=== PATIENT | female | born 1975 | race Caucasian/White ===

== ENCOUNTER → 2017-05-07 | Outpatient (REF) | payer OTHER ==
[~2017-05-07] MED LIST: ALBU17IN INH; ALBU17IN2; CLAR10CA3 PO; INSULADS SC; LISI10TA4 PO; NOVALOG INSULIN SC
[2017-05-07 13:18] LABS: BASO # 0.1 K/mm3 (0.0-0.2); BASO % 0.8 % (0.0-1.0); EOS # 0.2 K/mm3 (0.0-0.50); LARGE UNSTAINED CELL # 0.2 K/mm3 (0.0-0.4); LARGE UNSTAINED CELL % 2.2 % (0.0-4.0); LYMPH # 3.3 K/mm3 (1.5-4.5); LYMPH % 31.9 % (24.0-44.0); MEAN CORPUSCULAR HEMOGLOBIN 30.8 pg (27.0-33.0); MEAN CORPUSCULAR HGB CONC 34.6 g/dl (32.0-36.5); MEAN CORPUSCULAR VOLUME 89.1 fl (80.0-96.0); MONO # 0.8 K/mm3 (0.0-0.8); MONO % 7.3 % (0.0-5.0); NEUTROPHILS # 5.7 K/mm3 (1.8-7.7); NEUTROPHILS % 55.8 % (36.0-66.0); PLATELET COUNT, AUTOMATED 340 k/mm3 (150-450); RED CELL DISTRIBUTION WIDTH 12.5 % (11.5-14.5); WHITE BLOOD COUNT 10.3 K/mm3 (4.0-10.0)
[2017-05-07 13:49] LABS: ALBUMIN 2.9 GM/DL (3.2-5.2); ALBUMIN/GLOBULIN RATIO 0.83 (1.00-1.93); ALKALINE PHOSPHATASE 123 U/L (45-117); ALT/SGPT 23 U/L (12-78); ANION GAP 14 MEQ/L (8-16); AST/SGOT 9 U/L (15-37); BILIRUBIN,TOTAL 0.2 MG/DL (0.2-1.0); BLOOD UREA NITROGEN 20 MG/DL (7-18); CALCIUM LEVEL 8.8 MG/DL (8.5-10.1); CARBON DIOXIDE LEVEL 23 MEQ/L (21-32); CHLORIDE LEVEL 98 MEQ/L (98-107); CHOLESTEROL LEVEL 271 MG/DL (<200); CREATININE FOR GFR 0.59 MG/DL (0.55-1.02); GLOMERULAR FILTRATION RATE > 60.0 (>58); POTASSIUM SERUM 4.6 MEQ/L (3.5-5.1); SODIUM LEVEL 135 MEQ/L (136-145); THYROXINE (T4) 9.9 UG/DL (4.5-12.0); TOTAL PROTEIN 6.4 GM/DL (6.4-8.2); TRIGLYCERIDES LEVEL 1684 MG/DL (<150)
[2017-05-07 14:10] LABS: GLUCOSE, FASTING 413 MG/DL (70-105)
== END ==
LOC: M LABDRAW1 08:44
PROVIDERS: ATTEND Nurse Practitioner Adult Health
DX: E66.01 Morbid (severe) obesity due to excess calories (principal); E11.9 Type 2 diabetes mellitus without complications; Z79.899 Other long term (current) drug therapy; E55.9 Vitamin D deficiency, unspecified; E78.1 Pure hyperglyceridemia

== ENCOUNTER → 2017-05-08 | Outpatient (CLI) | payer OTHER ==
[2017-05-08 10:00] LABS: ANION GAP 7 MEQ/L (8-16); BLOOD UREA NITROGEN 18 MG/DL (7-18); CALCIUM LEVEL 9.1 MG/DL (8.5-10.1); CARBON DIOXIDE LEVEL 27 MEQ/L (21-32); CHLORIDE LEVEL 106 MEQ/L (98-107); CREATININE FOR GFR 0.52 MG/DL (0.55-1.02); GLOMERULAR FILTRATION RATE > 60.0 (>58); GLUCOSE, FASTING 157 MG/DL (70-105); POTASSIUM SERUM 4.1 MEQ/L (3.5-5.1); SODIUM LEVEL 140 MEQ/L (136-145)
== END ==
LOC: M LAB 09:14
PROVIDERS: ATTEND Nurse Practitioner Adult Health
DX: E11.9 Type 2 diabetes mellitus without complications (principal)

== ENCOUNTER → 2017-10-20 | Outpatient (CLI) | payer OTHER | LOC: M RAD 14:14 | DX: N64.4 Mastodynia (principal); N63.10 Unspecified lump in the right breast, unspecified quadrant | CPT/HCPCS: 77065 ==

== ENCOUNTER → 2017-11-10 | Outpatient (REF) | payer OTHER ==
[2017-11-10 12:00] LABS: HEMATOCRIT 48.6 % (36.0-47.0); HEMOGLOBIN 16.2 g/dl (12.0-16.0); MEAN CORPUSCULAR HEMOGLOBIN 29.1 pg (27.0-33.0); MEAN CORPUSCULAR HGB CONC 33.3 g/dl (32.0-36.5); MEAN CORPUSCULAR VOLUME 87.3 fl (80.0-96.0); PLATELET COUNT, AUTOMATED 374 10^3/uL (150-450); RED BLOOD COUNT 5.57 10^6/uL (4.00-5.40); WHITE BLOOD COUNT 13.1 10^3/uL (4.0-10.0)
[2017-11-10 12:01] LABS: ADD MANUAL DIFFER YES; DIFF SLIDE NUMBER 216; POSITIVE DIFF POS FLAG
[2017-11-10 12:18] LABS: ESTIMATED AVERAGE GLUCOSE 324 MG/DL (60-110); HEMOGLOBIN A1c 12.9 %
[2017-11-10 12:23] LABS: ALBUMIN/GLOBULIN RATIO 0.88 (1.00-1.93); ALKALINE PHOSPHATASE 124 U/L (45-117); ALT/SGPT 23 U/L (12-78); ANION GAP 11 MEQ/L (8-16); AST/SGOT 12 U/L (7-37); BILIRUBIN,TOTAL 0.3 MG/DL (0.2-1.0); BLOOD UREA NITROGEN 18 MG/DL (7-18); CALCIUM LEVEL 9.1 MG/DL (8.5-10.1); CARBON DIOXIDE LEVEL 26 MEQ/L (21-32); CHLORIDE LEVEL 100 MEQ/L (98-107); CHOLESTEROL LEVEL 270 MG/DL (<200); CHOLESTEROL RISK RATIO 8.181 (<5); CREATININE FOR GFR 0.58 MG/DL (0.55-1.30); FREE T4 1.09 NG/DL (0.76-1.46); GLOMERULAR FILTRATION RATE > 60.0 (>58); GLUCOSE, FASTING 302 MG/DL (70-100); HDL CHOLESTEROL 33 MG/DL (>40); NON-HDL-C 237 MG/DL; POTASSIUM SERUM 4.1 MEQ/L (3.5-5.1); SODIUM LEVEL 137 MEQ/L (136-145); TOTAL PROTEIN 6.4 GM/DL (6.4-8.2); TRIGLYCERIDES LEVEL 588 MG/DL (<150)
[2017-11-10 12:43] LABS: TOTAL 25(OH) VITAMIN D 15.2 NG/ML (30.0-100.0)
[2017-11-10 13:17] LABS: BASOPHILS 1 % (0-4); EOSINOPHILS 3 % (0-5); LYMPHOCYTES 40 % (16-52); MONOCYTES 5 % (0-8); MYELOCYTES 1 % (0-0); NEUTROPHILS 50 % (35-75)
[2017-11-10 13:18] LABS: ANISOCYTOSIS 1+; PLATELET ESTIMATE NORMAL (NORMAL)
== END ==
LOC: M LABDRAW1 11:15
DX: E11.9 Type 2 diabetes mellitus without complications (principal); Z79.899 Other long term (current) drug therapy; E55.9 Vitamin D deficiency, unspecified; E78.1 Pure hyperglyceridemia

== ENCOUNTER 2017-11-15 11:58 | Emergency (ER) | payer OTHER ==
[2017-11-15] MEDS: NORCO, ANEXSIA 5/325MG TABLET (HYDROcodone/ACETAMINOPHEN) PO (12:33)
== END 2017-11-15 13:38 | disposition home or self-care (01) ==
LOC: M ED 11:58
DX: S40.022A Contusion of left upper arm, initial encounter (principal); W19.XXXA Unspecified fall, initial encounter; Y92.410 Unspecified street and highway as the place of occurrence of the external cause; I10 Essential (primary) hypertension; E11.9 Type 2 diabetes mellitus without complications; Z87.891 Personal history of nicotine dependence; Z88.5 Allergy status to narcotic agent; Z79.899 Other long term (current) drug therapy; Z79.4 Long term (current) use of insulin
CPT/HCPCS: 73060

== ENCOUNTER → 2018-01-21 | Outpatient (CLI) | payer OTHER | LOC: M RAD 08:13 | DX: M47.22 Other spondylosis with radiculopathy, cervical region (principal) | CPT/HCPCS: 72052 ==

== ENCOUNTER → 2018-04-03 | Outpatient (CLI) | payer OTHER | LOC: M WUC 13:20 | DX: J01.90 Acute sinusitis, unspecified (principal) | CPT/HCPCS: 70220 ==

== ENCOUNTER 2018-06-18 14:42 | Inpatient (IN) | payer OTHER ==
[2018-06-18 15:43] LABS: BASO # 0.1 10^3/uL (0.0-0.2); BASO % 0.7 % (0.0-1.0); EOS # 0.3 10^3/uL (0.0-0.50); EOS % 2.2 % (0.0-3.0); HEMATOCRIT 40.5 % (36.0-47.0); HEMOGLOBIN 13.8 g/dl (12.0-15.5); IMMATURE GRANULOCYTE % 0.2 % (0-3.0); LYMPH # 3.8 10^3/uL (1.5-4.5); LYMPH % 30.1 % (24.0-44.0); MEAN CORPUSCULAR HEMOGLOBIN 29.4 pg (27.0-33.0); MEAN CORPUSCULAR HGB CONC 34.1 g/dl (32.0-36.5); MEAN CORPUSCULAR VOLUME 86.2 fl (80.0-96.0); MONO # 1.2 10^3/uL (0.0-0.8); MONO % 9.3 % (0.0-5.0); NEUTROPHILS # 7.2 10^3/uL (1.8-7.7); NEUTROPHILS % 57.5 % (36.0-66.0); PLATELET COUNT, AUTOMATED 375 10^3/uL (150-450); RED CELL DISTRIBUTION WIDTH 12.2 % (11.5-14.5); WHITE BLOOD COUNT 12.6 10^3/uL (4.0-10.0)
[2018-06-18 15:47] LABS: BEDSIDE GLUCOSE 135 MG/DL (70-105)
[2018-06-18 15:53] LABS: CONTROL LINE HCG INT CTR LINE PRESENT; HCG, SERUM QUALITATIVE NEGATIVE (NEGATIVE)
[2018-06-18 16:00] LABS: ALBUMIN 3.5 GM/DL (3.2-5.2); ALBUMIN/GLOBULIN RATIO 1.17 (1.00-1.93); ALKALINE PHOSPHATASE 63 U/L (45-117); ALT/SGPT 26 U/L (12-78); ANION GAP 8 MEQ/L (8-16); AST/SGOT 14 U/L (7-37); BILIRUBIN,DIRECT 0.1 MG/DL (0.0-0.2); BILIRUBIN,TOTAL 0.4 MG/DL (0.2-1.0); BLOOD UREA NITROGEN 18 MG/DL (7-18); C REACTIVE PROTEIN QUANTITATIV < 0.30 MG/DL (0.00-0.30); CALCIUM LEVEL 9.5 MG/DL (8.5-10.1); CARBON DIOXIDE LEVEL 25 MEQ/L (21-32); CHLORIDE LEVEL 108 MEQ/L (98-107); CK-MB VALUE MASS < 1.0 NG/ML (<3.6); CPK CREATINE PHOSPHOKINASE 28 U/L (26-192); GLOMERULAR FILTRATION RATE > 60.0 (>58); GLUCOSE, FASTING 147 MG/DL (70-100); MB/CK RELATIVE INDEX 3.57 (< OR =4); POTASSIUM SERUM 4.6 MEQ/L (3.5-5.1); SODIUM LEVEL 141 MEQ/L (136-145); TOTAL PROTEIN 6.5 GM/DL (6.4-8.2); TROPONIN I < 0.02 NG/ML (< 0.10)
[2018-06-18] MEDS: TOPIRAMATE (TopAMAX) 25 MG TAB PO (16:15)
[2018-06-18 16:19] LABS: INR 0.98
[2018-06-18 16:20] LABS: PARTIAL THROMBOPLASTIN TIME 29.7 SECONDS (25.4-37.6)
[2018-06-18 17:12] LABS: ERYTHROCYTE SEDIMENTATION RATE > 140 mm/hr (0-20)
[2018-06-18] MEDS: ATORVASTATIN 20 MG TAB PO (21:56)
[2018-06-19] MEDS ORDERED: GLUCAGON FOR INJ 1 MG VIAL (J1610) SC (00:45)
[2018-06-19] MEDS ORDERED: DEXTROSE 50% 50 ML SYRINGE IV (00:45)
[2018-06-19] MEDS ORDERED: GLUCOSE 4 GM CHEW TABLET PO (00:45)
[2018-06-19 01:08] LABS: BEDSIDE GLUCOSE 125 MG/DL (70-105)
[2018-06-19] MEDS ORDERED: ALBUTEROL 90 MCG/ACT 8GM HFA INHALER INH (01:15)
[2018-06-19 01:27] LABS: ESTIMATED AVERAGE GLUCOSE 174 MG/DL (60-110); HEMOGLOBIN A1c 7.7 %
[2018-06-19 01:33] LABS: CHOLESTEROL LEVEL 94 MG/DL (<200); CHOLESTEROL RISK RATIO 2.764 (<5); HDL CHOLESTEROL 34 MG/DL (>40); LDL CHOLESTEROL 33 MG/DL (<100); NON-HDL-C 60 MG/DL; TRIGLYCERIDES LEVEL 136 MG/DL (<150)
[2018-06-19] MEDS: HumaLOG INSULIN (NovoLOG) PER UNIT SC ×5 (02:11→20:25)
[2018-06-19] MEDS: methylPREDNISolone INJ 40 MG/1 ML VIAL (J2920) IV (02:20)
[2018-06-19 06:52] LABS: BEDSIDE GLUCOSE 188 MG/DL (70-105)
[2018-06-19] MEDS: ASPIRIN 81 MG CHEW TABLET PO (08:53)
[2018-06-19] MEDS: VERAPAMIL 120 MG SR TAB PO (08:54)
[2018-06-19] MEDS: LABETALOL 200 MG TAB PO (08:54)
[2018-06-19] MEDS: LISINOPRIL 10 MG TAB PO (08:55)
[2018-06-19] MEDS: LEVEMIR (INSULIN DETEMIR) 1 UNITS/0.01ML SC (08:55)
[2018-06-19] MEDS: ACETAMINOPHEN TAB 650MG DOSE (2X325MG) PO ×3 (10:08→20:26)
[2018-06-19] MEDS: TOPIRAMATE (TopAMAX) 25 MG TAB PO (10:08)
[2018-06-19] MEDS ORDERED: SLF 3 ML SYR IV (10:15)
[2018-06-19 11:56] LABS: BEDSIDE GLUCOSE 222 MG/DL (70-105)
[2018-06-19] MEDS: SLF 3 ML SYR IV ×2 (13:29→21:21)
[2018-06-19] MEDS ORDERED: PROHANCE 279.3MG/ML 5ML VIAL (A9576) As Ordered (14:10)
[2018-06-19] MEDS ORDERED: PROHANCE 279.3MG/ML 15ML VIAL (A9576) As Ordered (14:10)
[2018-06-19] MEDS: INFLUENZA QUADRIVALENT PF VACCINE 0.5ML SYRINGE (90686) IM (15:02)
[2018-06-19 16:55] LABS: BEDSIDE GLUCOSE 200 MG/DL (70-105)
[2018-06-19 20:21] LABS: BEDSIDE GLUCOSE 176 MG/DL (70-105)
[2018-06-19] MEDS: ATORVASTATIN 20 MG TAB PO (20:26)
[2018-06-20] MEDS: SLF 3 ML SYR IV (06:00)
[2018-06-20 07:06] LABS: HEMATOCRIT 37.3 % (36.0-47.0); HEMOGLOBIN 12.8 g/dl (12.0-15.5); MEAN CORPUSCULAR HEMOGLOBIN 29.5 pg (27.0-33.0); MEAN CORPUSCULAR HGB CONC 34.3 g/dl (32.0-36.5); MEAN CORPUSCULAR VOLUME 85.9 fl (80.0-96.0); PLATELET COUNT, AUTOMATED 358 10^3/uL (150-450); RED BLOOD COUNT 4.34 10^6/uL (4.00-5.40); RED CELL DISTRIBUTION WIDTH 12.4 % (11.5-14.5)
[2018-06-20 07:10] LABS: ADD MANUAL DIFFER YES; DIFF SLIDE NUMBER 40; POSITIVE DIFF POS FLAG; WHITE BLOOD COUNT 16.2 10^3/uL (4.0-10.0)
[2018-06-20 07:38] LABS: ANION GAP 7 MEQ/L (8-16); BLOOD UREA NITROGEN 18 MG/DL (7-18); CALCIUM LEVEL 8.8 MG/DL (8.5-10.1); CARBON DIOXIDE LEVEL 26 MEQ/L (21-32); CHLORIDE LEVEL 109 MEQ/L (98-107); CREATININE FOR GFR 0.78 MG/DL (0.55-1.30); GLOMERULAR FILTRATION RATE > 60.0 (>58); GLUCOSE, FASTING 126 MG/DL (70-100); POTASSIUM SERUM 3.7 MEQ/L (3.5-5.1); SODIUM LEVEL 142 MEQ/L (136-145)
[2018-06-20 07:41] LABS: ATYPICAL LYMPH 2 % (0-5); BANDS 1 % (< 11); BASOPHILS 1 % (0-4); LYMPHOCYTES 20 % (16-52); MONOCYTES 8 % (0-8); NEUTROPHILS 68 % (35-75)
[2018-06-20 07:42] LABS: ANISOCYTOSIS 1+; PLATELET ESTIMATE NORMAL (NORMAL)
[2018-06-20 07:55] LABS: ERYTHROCYTE SEDIMENTATION RATE 21 mm/hr (0-20)
[2018-06-20] MEDS: VERAPAMIL 120 MG SR TAB PO (09:00)
[2018-06-20] MEDS: LABETALOL 200 MG TAB PO (09:00)
[2018-06-20] MEDS: LISINOPRIL 10 MG TAB PO (09:00)
[2018-06-20] MEDS: ASPIRIN 81 MG CHEW TABLET PO (09:32)
[2018-06-20] MEDS: HumaLOG INSULIN (NovoLOG) PER UNIT SC (09:32)
[2018-06-20] MEDS: LEVEMIR (INSULIN DETEMIR) 1 UNITS/0.01ML SC (09:35)
[2018-06-20] MEDS: TOPIRAMATE (TopAMAX) 25 MG TAB PO (09:36)
[2018-06-20 09:44] LABS: BEDSIDE GLUCOSE 163 MG/DL (70-105)
[2018-06-20 11:47] LABS: BEDSIDE GLUCOSE 175 MG/DL (70-105)
== END 2018-06-20 12:57 | disposition home or self-care (01) | DRG 45 ==
LOC: M PCU 06-19 00:57 → M ED 14:42 → M MS5PR 06-19 22:27 → M ED INP 23:39
DX: I63.89 Other cerebral infarction (principal); Z79.899 Other long term (current) drug therapy; E11.9 Type 2 diabetes mellitus without complications; I10 Essential (primary) hypertension; J45.909 Unspecified asthma, uncomplicated; Z79.82 Long term (current) use of aspirin; Z88.5 Allergy status to narcotic agent; E78.5 Hyperlipidemia, unspecified; G43.909 Migraine, unspecified, not intractable, without status migrainosus; M54.81 Occipital neuralgia; Z79.4 Long term (current) use of insulin; I65.8 Occlusion and stenosis of other precerebral arteries

== ENCOUNTER → 2018-07-18 | Outpatient (CLI) | payer OTHER ==
[2018-07-18 10:10] LABS: CREATININE FOR GFR 0.97 MG/DL (0.55-1.30); GLOMERULAR FILTRATION RATE > 60.0 (>58)
[2018-07-18 10:10] LABS: BLOOD UREA NITROGEN 23 MG/DL (7-18)
== END ==
LOC: M LAB 09:16
DX: N18.9 Chronic kidney disease, unspecified (principal)
CPT/HCPCS: 82565

== ENCOUNTER → 2018-09-10 | Outpatient (CLI) | payer OTHER ==
[~2018-09-10] MED LIST changes: +ADME100I SC; +ALBU17IN2 INH; +ASPI1TAB20 PO; +ATOR80TA59 PO; +GEMF600T5 PO; +HUMU1INJ SC; +LABE20TAB PO; +LASI20TA3 PO; +LEVO500T3 PO; +LISI40TA PO; +METF10004 PO; +METO50TA7 PO; +MONT10TA2 PO; +NORT25CA2 PO; +TOPA1TAB PO; +TOUJ1.2I SC; +VENTAER INH; +VERA120T2 PO; +VITA50005 PO
--- NOTE | 2018-09-10 11:50 | REP ---
RENAL AND BLADDER ULTRASOUND: Real-time sonographic evaluation of the kidneys performed and demonstrates both kidneys to be normal in size and echotexture, right kidney measuring 12.1 x 5.5 x 5.7 cm and left kidney 12.3 x 5.9 x 6.3 cm. There is no hydronephrosis, renal mass, or nephrolithiasis. Urinary bladder is distended with no definite mass or calculus, measuring 5.9 x 5.2 x 3.6 cm. IMPRESSION: Essentially negative renal and bladder ultrasound. Electronically Signed by Feliz Kimball MD 09/10/2018 12:56 P
== END ==
LOC: M RAD 09:56
PROVIDERS: ATTEND Nurse Practitioner Family
DX: R10.9 Unspecified abdominal pain (principal)

== ENCOUNTER 2018-09-25 14:41 | Inpatient (IN) | payer OTHER ==
[~2018-09-25] VITALS: Ht 154.9 cm; Wt 87.2 kg
--- NOTE | 2018-09-25 15:16 | REP ---
Clinical: Visual disturbances. Comparison: 06/18/2018. Findings: Low density changes in the right parieto-occipital lobe are again identified and essentially stable consistent with encephalomalacia related to old infarction. Subtle low density changes within the left basal ganglia suggest lacunar infarcts with mild periventricular leukomalacia. No intracranial hemorrhage or mass effect. No extra-axial fluid collection. The ventricles are symmetric and within normal limits. The calvarium is intact. The sinuses and mastoid air cells are clear. Impression: 1. Low density changes in the right parieto-occipital lobe as well as within the left basal ganglia suggest changes related to chronic infarctions. 2. No acute intracranial hemorrhage or mass/mass effect. Electronically Signed by Trent Sullivan MD 09/25/2018 03:07 P
[2018-09-25] MEDS ORDERED: TETRACAINE 0.5% OPHTH SOLN 4ML OU STA (15:50)
[2018-09-25 16:07] LABS: BASO # 0.1 10^3/uL (0.0-0.2); BASO % 0.6 % (0.0-1.0); EOS # 0.5 10^3/uL (0.0-0.50); EOS % 2.9 % (0.0-3.0); HEMATOCRIT 40.7 % (36.0-47.0); HEMOGLOBIN 13.7 g/dl (12.0-15.5); LYMPH # 3.5 10^3/uL (1.5-4.5); LYMPH % 22.4 % (24.0-44.0); MEAN CORPUSCULAR HEMOGLOBIN 30.4 pg (27.0-33.0); MEAN CORPUSCULAR HGB CONC 33.7 g/dl (32.0-36.5); MEAN CORPUSCULAR VOLUME 90.2 fl (80.0-96.0); MONO # 1.2 10^3/uL (0.0-0.8); MONO % 7.8 % (0.0-5.0); NEUTROPHILS # 10.2 10^3/uL (1.8-7.7); NEUTROPHILS % 65.7 % (36.0-66.0); PLATELET COUNT, AUTOMATED 476 10^3/uL (150-450); RED BLOOD COUNT 4.51 10^6/uL (4.00-5.40); WHITE BLOOD COUNT 15.6 10^3/uL (4.0-10.0)
[2018-09-25 16:31] LABS: INR 0.97
[2018-09-25 16:32] LABS: PARTIAL THROMBOPLASTIN TIME 32.2 SECONDS (25.4-37.6)
[2018-09-25 16:37] LABS: HCG, SERUM QUALITATIVE NEGATIVE (NEGATIVE)
[2018-09-25 16:45] LABS: BLOOD UREA NITROGEN 19 MG/DL (7-18); CALCIUM LEVEL 9.2 MG/DL (8.5-10.1); CARBON DIOXIDE LEVEL 23 MEQ/L (21-32); CHLORIDE LEVEL 108 MEQ/L (98-107); CK-MB VALUE MASS < 1.0 NG/ML (<3.6); CPK CREATINE PHOSPHOKINASE 43 U/L (26-192); CREATININE FOR GFR 1.07 MG/DL (0.55-1.30); GLUCOSE, FASTING 91 MG/DL (70-100); MB/CK RELATIVE INDEX 2.33 (< OR =4); POTASSIUM SERUM 4.5 MEQ/L (3.5-5.1); SODIUM LEVEL 139 MEQ/L (136-145); TROPONIN I < 0.02 NG/ML (< 0.10)
[2018-09-25] MEDS ORDERED: TOPA50TA8 PO (16:56)
[2018-09-25] MEDS ORDERED: TYLE325T5 PO (16:56)
[2018-09-25] MEDS ORDERED: LABE20TAB PO (16:56)
[2018-09-25] MEDS ORDERED: METF500T4 PO (16:56)
--- NOTE | 2018-09-25 17:27 | REP ---
Clinical: Acute cerebrovascular accident . Comparison: 06/18/2018 . Findings: The mediastinum and cardiac silhouette are stable and within normal limits for portable technique. The lung harkins are clear without acute consolidation, effusion, or pneumothorax. Skeletal structures are intact. Impression: No acute cardiopulmonary process appreciated. Electronically Signed by Trent Sullivan MD 09/25/2018 05:18 P
[2018-09-25] MEDS ORDERED: ALBUTEROL 90 MCG/ACT 8GM HFA INHALER INH PRN (18:00)
[2018-09-25] MEDS ORDERED: DEXTROSE 50% 50 ML SYRINGE IV PRN (18:00)
[2018-09-25] MEDS ORDERED: ACETAMINOPHEN TAB 650MG DOSE (2X325MG) PO PRN (18:00)
[2018-09-25] MEDS ORDERED: GLUCAGON FOR INJ 1 MG VIAL (J1610) SC PRN (18:00)
[2018-09-25] MEDS ORDERED: GLUCOSE 4 GM CHEW TABLET PO PRN (18:00)
[2018-09-25 18:34] LABS: HEMOGLOBIN A1c 7.3 %
--- NOTE | 2018-09-25 20:09 | HPE ---
DATE OF ADMISSION: 09/25/2018 PRIMARY CARE PROVIDER: Dr. Prabhakar PLANT SPRAYER: Dr. Carreon NEUROLOGIST: Dr. Brewer CHIEF COMPLAINT: Loss of left eye vision. HISTORY OF PRESENT ILLNESS: The patient is a 43-year-old white female with several chronic medical conditions, including hypertension, type 2 diabetes, as well as right occipital ischemic stroke with decreased vision, who presented to the hospital for evaluation of sudden loss of her left eye vision. The history is provided by herself. She was found to have right occipital ischemic stroke. She was in this hospital in May 2018. She had a full workup in [facility], as well as followup with the local neurologist. She also states that she saw door to door selling agent and reportedly she did not need any treatment regarding her eye problem related to diabetes. She states that today she woke up from her nap in the afternoon and she could not see anything from her left eye and usually she can see things even if her vision is not adequate. She decided to come to the emergency room for further evaluation. In the emergency room, her initial workup was not significant; head CT was negative with chronic right occipital old stroke but no new changes. Emergency room attending, Dr. Hassan, discussed the case with neurologist, Dr. Brewer, as well as door to door selling agent, Dr. Pillai, and it was recommended to admit to the hospital and they will come to see the patient tomorrow. Medicine service was called for admission. REVIEW OF SYSTEMS: Denies fever. No chills. No headache today. No nausea. No vomiting. No chest pain. No coughing. No diarrhea. No tingling, numbness, weakness in the arms or lower extremities. All other systems reviewed and were negative. PAST MEDICAL HISTORY: 1. Right occipital ischemic stroke. 2. Hypertension. 3. Type 2 diabetes. 4. Dyslipidemia. 5. Positive migraine headache. PAST SURGICAL HISTORY: 1. Dilatation and curettage. 2. Hernia repair. 3. section. 4. Cholecystectomy. ALLERGIES: Allergic to MORPHINE. SOCIAL HISTORY: Denies tobacco use. Denies alcohol abuse. Denies illicit drug abuse. She is a F[employer]. FAMILY HISTORY: Her father has a history of hypertension and diabetes. MEDICATIONS: - aspirin 325 mg by mouth daily - Lisinopril 10 mg by mouth daily - Lipitor 80 mg by mouth daily - nortriptyline 25 mg by mouth at night - Topamax 50 mg by mouth at night - SoloStar Pen 47 units subcutaneously daily PHYSICAL EXAMINATION: VITAL SIGNS: Temperature is 98.6, heart rate is 104, respiratory rate 18, blood pressure 134/90, oxygen saturation 97% on room air. GENERAL: She is awake, alert, oriented times three. She is not in acute distress. HEENT: Atraumatic. Pupils are equal, round and reactive to light. Extraocular muscles intact. Regarding vision: roughly left light perception and right finger counting/20 CM Ears, nose and throat normal. Mouth mucosa dry. NECK: No jugular venous distention (JVD). No bruits. LUNGS: Clear. No wheezing. No crackles. HEART: S1, S2 regular. No murmur. ABDOMEN: Soft. Bowel sounds positive. Nontender. LOWER EXTREMITIES: No edema in the bilateral lower extremities. NEUROLOGIC: Nonfocal. SKIN: No rashes. PSYCHIATRIC: No psychosis. DIAGNOSTICS AND LABORATORIES: Complete blood count (CBC) and differential showed WBC 15.6, hemoglobin and hematocrit 13.7/40, platelets 476. Sodium 141, potassium 4.6, chloride 108, bicarbonate 25, BUN 18, creatinine 0.7, glucose 147. Head CT with no acute changes. IMPRESSION: 1. Loss of left eye vision. 2. History of right occipital ischemic stroke. 3. Hypertension. 4. Type 2 diabetes. 5. Dyslipidemia. 6. Questionable migraine headache. PLAN: The patient will be admitted to the progressive care unit (PCU). Currently, the etiology in her left eye vision loss is not clear, questionable recurrent stroke or related to diabetic retinopathy, which I did not see evidence of bleeding in retina. We will continue her home medications. I will schedule brain MRI. Dr. Brewer and Dr. Pillai will come to consult tomorrow. KAYLA
[2018-09-25] MEDS ORDERED: TOPIRAMATE (TopAMAX) 25 MG TAB PO SCH (21:00)
[2018-09-25] MEDS ORDERED: NORTRIPTYLINE 25 MG CAP PO SCH (21:00)
[2018-09-25] MEDS ORDERED: HumaLOG INSULIN (NovoLOG) PER UNIT SC SCH (21:00)
[2018-09-25] MEDS ORDERED: LABETALOL 200 MG TAB PO SCH (21:00)
[2018-09-25] MEDS: LEVEMIR (INSULIN DETEMIR) 1 UNITS/0.01ML SC SCH (21:00)
[2018-09-25] MEDS ORDERED: ATORVASTATIN 20 MG TAB PO SCH (21:00)
--- NOTE | 2018-09-25 21:05 | REPVR ---
EXAM: MR Head Without Contrast EXAM DATE/TIME: 09/25/2018 7:44 PM CLINICAL HISTORY: 43 years old, female; Signs and symptoms; Visual disturbance; Patient HX: PT states extensive HX of CVA, PT states when she woke from a nap at 1400 she discovered she had lost all vision in left eye and peripheral vision in RT eye, intense h/a behind the eyes that has since subsided; Additional info: Loss vision of left eye TECHNIQUE: MR of the head without contrast. COMPARISON: MRI-Brain without Contrast 06/18/2018 7:12 PM FINDINGS: Brain: There is a chronic infarct demonstrated in the right occipital lobe. In addition there are foci of abnormal signal demonstrated on diffusion weighted and ADC map images in the adjacent white matter as noted previously although reduced in volume in comparison to the prior study. Reinfarction not entirely excluded. Gradient images demonstrate low signal in the infarct zone consistent with hemosiderin deposition. -Multiple foci of T2 lengthening are demonstrated in the periventricular and centrum semiovale stable in comparison to the prior study. Abnormal signal also demonstrate a posterior corpus callosum. Some foci adjacent to the ventricles are oriented perpendicular to the long axis of the ventricles, findings suggestive of [place] fingers and demyelinating disease. Ventricles: Unremarkable Bones/joints: Unremarkable. Soft tissues: Normal. Sinuses: Normal as visualized. No acute sinusitis. Mastoid air cells: Normal as visualized. No mastoid effusion. Orbits: Unremarkable. IMPRESSION: 1. Again demonstrated is a chronic infarct in the right occipital region with evidence of hemosiderin deposition which may indicate a prior hemorrhagic component. Residual abnormal signal on diffusion weighted/ADC map may be residual abnormality from the original infarct although reinfarction not excluded. 2. Multiple foci of T2 lengthening are demonstrated in the periventricular and centrum semiovale stable in comparison to the prior study. Abnormal signal also demonstrate a posterior corpus callosum. Some foci are suggestive of [place] fingers and may indicate the presence of demyelinating disease. Electronically signed by: Sarath Wilder On 09/25/2018 21:05:23 PM
[2018-09-25 22:24] VITALS: BP 189/113
[2018-09-25 22:45] VITALS: BP 150/90
[2018-09-25] MEDS: DOCUSATE SODIUM 100 MG CAP PO SCH (23:22)
[2018-09-25] MEDS: HEPARIN SOD (PORCINE) 5000 UNITS/ML VIAL SC SCH (23:24)
[2018-09-25 23:59] VITALS: BP 138/93
[2018-09-26 04:00] VITALS: BP 112/70
[2018-09-26] MEDS: HEPARIN SOD (PORCINE) 5000 UNITS/ML VIAL SC SCH (06:18)
[2018-09-26] MEDS: HumaLOG INSULIN (NovoLOG) PER UNIT SC SCH ×2 (07:30→13:05)
[2018-09-26 08:00] VITALS: BP 144/93
[2018-09-26] MEDS ORDERED: ASPIRIN 325 MG TAB PO SCH (09:00)
[2018-09-26] MEDS ORDERED: TROPICAMIDE 1% OPHTH SOLN 2ML OU ONE (09:00)
[2018-09-26] MEDS ORDERED: TETRACAINE 0.5% OPHTH SOLN 4ML OU ONE (09:00)
[2018-09-26] MEDS ORDERED: LISINOPRIL 10 MG TAB PO SCH (09:00)
[2018-09-26] MEDS ORDERED: PHENYLEPHRINE 2.5% OPHTH SOL 2ML OU ONE (09:00)
--- NOTE | 2018-09-26 09:47 | REP ---
Clinical: Possible cerebrovascular accident . Technique: Kimball scale and color Doppler evaluation using linear high frequency transducer Findings: Two-dimensional kimball scale and color images demonstrate normal arterial lumen with laminar flow and no appreciable narrowing. Color Doppler interrogation demonstrates normal arterial wave patterns and velocities with no significant spectral broadening. Normal flow direction is appreciated in the bilateral vertebral arteries. RIGHT (cm/s) LEFT (cm/s) ICA peak systolic velocity 56.3 41.8 ICA diastolic velocity 25.1 21.6 ECA peak systolic velocity 34.6 64.3 CCA peak systolic velocity 57.8 71.0 ICA/CCA ratio 0.97 0.59 Impression: No hemodynamically significant areas of narrowing or stenosis appreciated. Based on set standards narrowing falls within the less than 50%/normal range. Electronically Signed by Trent Sullivan MD 09/26/2018 09:39 A
[2018-09-26] MEDS: DOCUSATE SODIUM 100 MG CAP PO SCH (11:12)
[2018-09-26 11:15] VITALS: BP 130/86
[2018-09-26] MEDS: LEVEMIR (INSULIN DETEMIR) 1 UNITS/0.01ML SC SCH (11:16)
[2018-09-26 12:00] VITALS: BP 138/85
--- NOTE | 2018-09-27 04:46 | CR ---
DATE OF CONSULTATION: 09/26/2018 REFERRAL SOURCE: Dr. Allen. REASON FOR CONSULTATION: Loss of vision in left eye. HISTORY OF PRESENT ILLNESS: Shawna Sherman is a 43-year-old woman with history of type 2 diabetes for 27 years, right occipital stroke with decreased left-sided visual harkins and the patient states that she has been legally blind. She also follows with Dr. Mir who is a retinal specialist and she is being closely monitored for hemorrhages in her eyes. The patient also has history of migraines in the past which have improved since she has been taking Topamax and nortriptyline. She was hospitalized at [facility] in March 2018 and [facility] in May 2018 and during these hospitalizations she was worked up for the possibility of any demyelinating disease of brain and it was excluded. She has also discussed with Dr. Saldivar, who is her outpatient neurologist, and all the doctors have agreed that changes in her brain MRI scan are from small-vessel disease of brain due to her history of diabetes for 27 years and right occipital stroke. This question was worked up during her last admission in May 2018. Patient declined spinal tap. The patient states that she was at her baseline state of health until yesterday when she developed 5/10 headache and took a nap. When she woke up she had lost vision in both eyes completely. Her thought that she was also talking slowly. She felt that faces looked different. Her vision is better but still not back to baseline. She was seen by Dr. Pillai this morning who did bedside eye examination. After dilating her pupils and he did not find anything wrong with her eyes. He advised her to make an early appointment with Dr. Mir who is her retina an data warehouse specialist. She denies any neck pain, back pain, numbness, weakness in her arms and legs, dysphagia, dysarthria, diplopia or urinary incontinence. PAST MEDICAL HISTORY: Right occipital stroke. Hypertension. Type 2 diabetes for 27 years. Dyslipidemia. Chronic migraines. Hernia repair. section. Cholecystectomy. Small-vessel ischemic disease of brain. ALLERGIES: MORPHINE. SOCIAL HISTORY: She denies smoking, alcohol or illicit drugs. FAMILY HISTORY: Father with hypertension and diabetes. HOME MEDICATIONS: - aspirin 325 mg by mouth daily - lisinopril 10 mg by mouth daily - Lipitor 80 mg by mouth daily - labetalol 200 mg by mouth at bedtime - nortriptyline 25 mg by mouth at bedtime - Topamax 50 mg by mouth at bedtime - insulin Toujeo 47 units subcutaneous daily - metformin 1000 mg by mouth twice a day REVIEW OF SYSTEMS: All systems were reviewed and found to be noncontributory. PHYSICAL EXAMINATION: Temperature 99, pulse 113, respiratory rate 18, blood pressure 144/93, 94% saturations on room air. Heart: Regular rate and rhythm. Lungs: Clear to auscultation. Abdomen: Soft, nontender, nondistended. No pedal edema. No musculoskeletal abnormalities. No rash. No signs of meningeal irritation. No dysmetria or ataxia. The patient is awake, alert, oriented to place, person and time. Normal speech comprehension and repetition. Recent and distant memory is intact. Extraocular muscles are intact. Pupils are dilated due to her eye examination. They are sluggish to react. There is no papilledema on funduscopic examination. Extraocular muscles are intact. No facial weakness. Tongue and uvula are midline. 5/5 strength in all upper extremities. Deep tendon reflexes are 1+ in arms and knees and absent at ankles. She has decreased cold pinprick vibration sensation in her feet. Gait is normal. DIAGNOSTIC STUDIES: Her MRI scan of brain did not show any acute disease. MRI of brain showed small vessel ischemic disease of brain due to her history of diabetes for 27 years. MRI of brain also showed old right occipital ischemic stroke. Carotid ultrasound showed less than 50% bilateral carotid artery stenosis. Her MRA brain in May 2018 showed 65% bilateral internal carotid artery (ICA) stenosis, moderate right and mild left posterior cerebral artery (ORIENTAL RUG REPAIRER) stenosis. ASSESSMENT 1. Old right occipital ischemic stroke. 2. Small-vessel ischemic disease of brain due to the patient's history of diabetes for 27 years, hypertension and dyslipidemia. 3. Left-sided visual field deficit. 4. Diabetic retinopathy and peripheral neuropathy. 5. Less than 50% bilateral internal carotid artery (ICA) stenosis in neck and 65% stenosis intracranially and mild - moderate bilateral posterior cerebral artery (ORIENTAL RUG REPAIRER) stenosis. 6. Chronic migraines. PLAN 1. Aspirin 325 mg by mouth daily. 2. Lipitor 80 mg by mouth daily. 3. Continue nortriptyline 25 mg by mouth at bedtime. 4. Continue Topamax 50 mg by mouth at bedtime. 5. Closely follow up with her cardiac technologist. 6. Follow with Dr. Saldivar as planned.
--- NOTE | 2018-10-18 15:58 | DS.PDOC ---
Discharge Summary General Date of Admission Sep 25, 2018 at 18:00 Date of Discharge 09/26/18 Discharge Summary CONSULTANTS: DR. PILLAI, MOTOR VEHICLE OPERATOR ROAD SUPERVISOR DR. BREWER, NEUROLOGIST DISCHARGE DIAGNOSES: Old right occipital ischemic stroke. Small-vessel ischemic disease of brain due to the patient's history of diabetes for 27 years, hypertension and dyslipidemia. Left-sided visual field deficit. Diabetic retinopathy and peripheral neuropathy. . Less than 50% bilateral internal carotid artery (ICA) stenosis in neck and 65% stenosis intracranially and mild - moderate bilateral posterior cerebral artery (RN MILITARY) stenosis. Chronic migraines Right occipital stroke. Hypertension. Type 2 diabetes for 27 years. Dyslipidemia. Hernia repair. section. Cholecystectomy. Small-vessel ischemic disease of brain. HISTORY OF PRESENT ILLNESS: The patient is a 43-year-old white female with several chronic medical conditions, including hypertension, type 2 diabetes, as well as right occipital ischemic stroke with decreased vision, who presented to the hospital for evaluation of sudden loss of her left eye vision. The history is provided by herself. She was found to have right occipital ischemic stroke. She was in this hospital in May 2018. She had a full workup in [facility], as well as followup with the local neurologist. She also states that she saw oceanography professor and reportedly she did not need any treatment regarding her eye problem related to diabetes. She states that today she woke up from her nap in the afternoon and she could not see anything from her left eye and usually she can see things even if her vision is not adequate. She decided to come to the emergency room for further evaluation. In the emergency room, her initial workup was not significant; head CT was negative with chronic right occipital old stroke but no new changes. Emergency room attending, Dr. Hassan, discussed the case with neurologist, Dr. Brewer, as well as oceanography professor, Dr. Pillai, and it was recommended to admit to the hospital and they will come to see the patient tomorrow. Medicine service was called for admission. HOSPITAL COURSE: Patient was seen by Dr. Brewer, neurologist power house control room operator, who recommended, "Aspirin 325 mg by mouth daily.Lipitor 80 mg by mouth daily.Continue nortriptyline 25 mg by mouth at bedtime.Continue Topamax 50 mg by mouth at bedtime.Closely follow up with her oceanography professor.Follow with Dr. Saldivar as planned." Per [employer] power house control room operator, Dr. Pillai, "no acute issues, may fu with her retinal specialist on Thursday09/27/18/" pt passes HSE by physical therapy and was discharged home. DISCHARGE MEDICATIONS: Please see below. ALLERGIES: Please see below. PHYSICAL EXAMINATION ON DISCHARGE: VITAL SIGNS: Please see below. Gen: pt wearing sunglasses in a dimly lit room in the ER. AAO x 3 answering questions appropriately. no respiratory distress or use of respiratory accessory muscles. HEENT: no jvd,no thyromegaly, no cervical LAD Heart: Regular rate and rhythm. S1S2 Lungs: Clear to auscultation. no wheezing, rales or rhonchi Abdomen: Soft, nontender, nondistended. (+) bs Extremities: No pedal edema. skin: no rash. Neuro: No signs of meningeal irritation. No dysmetria or ataxia. The patient is awake, alert, oriented to place, person and time. Normal speech comprehension and repetition. Recent and distant memory is intact. Extraocular muscles are intact. Pupils are dilated due to her eye examination. They are sluggish to react. There is no papilledema on funduscopic examination. Extraocular muscles are intact. No facial weakness. Tongue and uvula are midline. 5/5 strength in all upper extremities. Deep tendon reflexes are 1+ in arms and knees and absent at ankles. She has decreased cold pinprick vibration sensation in her feet. Gait is normal. LABORATORY DATA: Please see below. IMAGING: EXAM: MR Head Without Contrast EXAM DATE/TIME: 09/25/2018 7:44 PM CLINICAL HISTORY: 43 years old, female; Signs and symptoms; Visual disturbance; Patient HX: PT states extensive HX of CVA, PT states when she woke from a nap at 1400 she discovered she had lost all vision in left eye and peripheral vision in RT eye, intense h/a behind the eyes that has since subsided; Additional info: Loss vision of left eye TECHNIQUE: MR of the head without contrast. COMPARISON: MRI-Brain without Contrast 06/18/2018 7:12 PM FINDINGS: Brain: There is a chronic infarct demonstrated in the right occipital lobe. In addition there are foci of abnormal signal demonstrated on diffusion weighted and ADC map images in the adjacent white matter as noted previously although reduced in volume in comparison to the prior study. Reinfarction not entirely excluded. Gradient images demonstrate low signal in the infarct zone consistent with hemosiderin deposition. -Multiple foci of T2 lengthening are demonstrated in the periventricular and centrum semiovale stable in comparison to the prior study. Abnormal signal also demonstrate a posterior corpus callosum. Some foci adjacent to the ventricles are oriented perpendicular to the long axis of the ventricles, findings suggestive of [place] fingers and demyelinating disease. Ventricles: Unremarkable Bones/joints: Unremarkable. Soft tissues: Normal. Sinuses: Normal as visualized. No acute sinusitis. Mastoid air cells: Normal as visualized. No mastoid effusion. Orbits: Unremarkable. IMPRESSION: 1. Again demonstrated is a chronic infarct in the right occipital region with evidence of hemosiderin deposition which may indicate a prior hemorrhagic component. Residual abnormal signal on diffusion weighted/ADC map may be residual abnormality from the original infarct although reinfarction not excluded. 2. Multiple foci of T2 lengthening are demonstrated in the periventricular and centrum semiovale stable in comparison to the prior study. Abnormal signal also demonstrate a posterior corpus callosum. Some foci are suggestive of [place] fingers and may indicate the presence of demyelinating disease. Electronically signed by: Sarath Wilder On 09/25/2018 21:05:23 PM DISPOSITION: 01 Home, Self-Care. DISCHARGE INSTRUCTIONS: REFERRAL TO [facility] FOR TRAINING. OUTPT FU W RETINAL SPECIALIST THIS WEEK, PCP THIS WEEK, AND NEUROLOGY RECOMMENDED DISCHARGE CONDITION: STABLE. ASSISTANCE WITH ALL AMBULATION TIME SPENT ON DISCHARGE: Greater than 30minutes. Vital Signs/I&Os Vital Signs Date Time Temp Pulse Resp B/P (MAP) Pulse Ox O2 Delivery O2 Flow Rate FiO2 09/26/18 12:00 97.9 103 17 138/85 (102) 94 Room Air I&O- Last 24 Hours up to 6 AM 09/27/18 06:00 Intake Total 840 ml Output Total 400 ml Balance 440 ml Discharge Medications Scheduled (Admelog) 100 Unit/Ml Inj, 1 DOSE SC ACHS, (Reported) SLIDING SCALE (Toujeo Solostar) 300 Unit/Ml Inj, 47 UNIT SC DAILY, (Reported) Aspirin (Aspirin) 325 Mg Tab, 325 MG PO DAILY, (Reported) Atorvastatin Calcium (Atorvastatin Calcium) 80 Mg Tab, 80 MG PO QPM, (Reported) Labetalol HCl (Labetalol HCl) 200 Mg Tab, 200 MG PO QHS, (Reported) Lisinopril (Lisinopril) 40 Mg Tab, 10 MG PO DAILY, (Reported) Metformin Hydrochloride (Metformin HCl ER) 500 Mg Tab, 1,000 MG PO BID, (Reported) Nortriptyline HCl (Nortriptyline HCl) 25 Mg Cap, 25 MG PO QHS, (Reported) Topiramate (Topamax) 50 Mg Tab, 50 MG PO QHS, (Reported) Scheduled PRN Acetaminophen (Tylenol) 325 Mg Tab, 650 MG PO Q6H PRN for PAIN, (Reported) Albuterol Sulfate (Proventil Hfa) 108 Mcg/Act Aer, 2 MCG INH QID PRN for SOB/WHEEZING, (Reported) Allergies Coded Allergies: Morphine (Verified Adverse Reaction, Mild, NAUSEA, 04/13/14) VEE VEGA MD Sep 27, 2018 12:01
== END 2018-09-26 14:16 | disposition home or self-care (01) | DRG 82 ==
LOC: M ED 14:41 → M ED INP 18:00 → M PCU 22:05
PROVIDERS: ADMIT Hospitalist; ATTEND General Practice
DX: E11.319 Type 2 diabetes mellitus with unspecified diabetic retinopathy without macular edema (principal); I10 Essential (primary) hypertension; H54.61 Unqualified visual loss, right eye, normal vision left eye; E78.5 Hyperlipidemia, unspecified; E11.42 Type 2 diabetes mellitus with diabetic polyneuropathy; G43.709 Chronic migraine without aura, not intractable, without status migrainosus; I69.398 Other sequelae of cerebral infarction; Z90.49 Acquired absence of other specified parts of digestive tract; Z88.5 Allergy status to narcotic agent; Z79.82 Long term (current) use of aspirin; Z79.899 Other long term (current) drug therapy; Z79.4 Long term (current) use of insulin

== ENCOUNTER → 2018-11-16 | Outpatient (REF) | payer OTHER ==
[~2018-11-16] MED LIST changes: +EZET10TA PO; +KETO0.02 OP; +METF500T4 PO; +ONDA4SOL PO; +SPIR-10 PO; +SYST1SOL4 OP; +TOPA50TA8 PO; +TYLE325T5 PO
[2018-11-16 12:28] LABS: BASO # 0.1 10^3/uL (0.0-0.2); BASO % 0.7 % (0.0-1.0); EOS # 0.4 10^3/uL (0.0-0.50); EOS % 2.3 % (0.0-3.0); HEMOGLOBIN 12.6 g/dl (12.0-15.5); LYMPH # 4.4 10^3/uL (1.5-4.5); LYMPH % 24.7 % (24.0-44.0); MEAN CORPUSCULAR HEMOGLOBIN 29.4 pg (27.0-33.0); MEAN CORPUSCULAR HGB CONC 32.3 g/dl (32.0-36.5); MEAN CORPUSCULAR VOLUME 91.1 fl (80.0-96.0); MONO # 1.2 10^3/uL (0.0-0.8); MONO % 6.9 % (0.0-5.0); NEUTROPHILS # 11.5 10^3/uL (1.8-7.7); PLATELET COUNT, AUTOMATED 423 10^3/uL (150-450); RED BLOOD COUNT 4.28 10^6/uL (4.00-5.40); WHITE BLOOD COUNT 17.7 10^3/uL (4.0-10.0)
[2018-11-16 13:40] LABS: HEMOGLOBIN A1c 7.7 %
[2018-11-16 13:45] LABS: ALBUMIN 3.7 GM/DL (3.2-5.2); BILIRUBIN,TOTAL 0.3 MG/DL (0.2-1.0); CALCIUM LEVEL 9.1 MG/DL (8.5-10.1); CREATININE FOR GFR 1.47 MG/DL (0.55-1.30); FOLATE 15.4 NG/ML; GLOMERULAR FILTRATION RATE 40.9 (>58); POTASSIUM SERUM 5.7 MEQ/L (3.5-5.1); TOTAL PROTEIN 6.9 GM/DL (6.4-8.2)
== END ==
LOC: M SFHCPLAZ 10:43
PROVIDERS: ATTEND Family Medicine
DX: D72.829 Elevated white blood cell count, unspecified (principal); E11.65 Type 2 diabetes mellitus with hyperglycemia; E87.5 Hyperkalemia; E87.1 Hypo-osmolality and hyponatremia; R74.8 Abnormal levels of other serum enzymes; E72.12 Methylenetetrahydrofolate reductase deficiency

== ENCOUNTER 2018-11-22 10:27 | Emergency (ER) | payer OTHER ==
[~2018-11-22] VITALS: Ht 154.9 cm; Wt 90.0 kg
[~2018-11-22 10:27] MED LIST changes: -EZET10TA PO; -ONDA4SOL PO
[2018-11-22] MEDS ORDERED: ONDA4SOL PO (10:53)
[2018-11-22] MEDS ORDERED: EZET10TA PO (10:53)
[2018-11-22] MEDS ORDERED: METOCLOPRAMIDE INJ 10MG/2ML VIAL (J2765) IV ONE (11:15)
--- NOTE | 2018-11-22 11:25 | REP ---
CT Head without contrast HISTORY: Neurologic symptoms COMPARISON: 09/25/2018 An area of decreased attenuation is present in the posterior right temporal parietal and right occipital lobes. There is dilatation of the overlying cortical sulci and atrium and occipital horn of the right lateral ventricle. This represents an old infarction. Areas of decreased attenuation are present in the left basal ganglia and thalamus. These represent old lacunar infarctions. Areas of decreased attenuation are present in the periventricular white matter. This represents small-vessel ischemic disease. There is no intraparenchymal hemorrhage, acute infarct, mass or midline shift. The ventricular system and cortical sulci are dilated consistent with minimal volume loss. There is no extra cerebral collection. There is no fracture. The visualized sinuses are clear. IMPRESSION: 1. Old right temporal parietal occipital lobe infarction. 2. Old left basal ganglia and thalamic lacunar infarctions. 3. Small vessel ischemic disease. 4. Minimal volume loss. Electronically Signed by Alejandro Carreon MD 11/22/2018 11:17 A
[2018-11-22 12:02] LABS: HEMATOCRIT 38.4 % (36.0-47.0); HEMOGLOBIN 12.3 g/dl (12.0-15.5); MEAN CORPUSCULAR HEMOGLOBIN 29.7 pg (27.0-33.0); MEAN CORPUSCULAR VOLUME 92.8 fl (80.0-96.0); PLATELET COUNT, AUTOMATED 309 10^3/uL (150-450); RED BLOOD COUNT 4.14 10^6/uL (4.00-5.40); WHITE BLOOD COUNT 15.9 10^3/uL (4.0-10.0)
[2018-11-22 12:35] LABS: CALCIUM LEVEL 8.8 MG/DL (8.5-10.1); CREATININE FOR GFR 1.39 MG/DL (0.55-1.30); GLOMERULAR FILTRATION RATE 43.6 (>58); POTASSIUM SERUM 5.2 MEQ/L (3.5-5.1)
[2018-11-22 13:24] VITALS: BP 140/81
[2018-12-03] MEDS ORDERED: FOLI1TAB11 PO (10:16)
== END 2018-11-22 13:27 | disposition home or self-care (01) ==
LOC: M ED 10:27
DX: G43.909 Migraine, unspecified, not intractable, without status migrainosus (principal); N18.3 Chronic kidney disease, stage 3 (moderate); I12.9 Hypertensive chronic kidney disease with stage 1 through stage 4 chronic kidney disease, or unspecified chronic kidney disease; E11.9 Type 2 diabetes mellitus without complications; Z86.73 Personal history of transient ischemic attack (TIA), and cerebral infarction without residual deficits; Z79.899 Other long term (current) drug therapy; Z79.4 Long term (current) use of insulin; Z79.82 Long term (current) use of aspirin
CPT/HCPCS: 36415; 70450; 80048; 85027; 96374; 99284; J2765

== ENCOUNTER → 2018-11-22 | Outpatient (REF) | payer OTHER ==
[2018-11-22 12:56] LABS: HEMOGLOBIN A1c 7.6 %
[2018-11-23 10:21] LABS: DRVV SCREEN 42.8 SEC
== END ==
LOC: M SFHCPLAZ 08:53
PROVIDERS: ATTEND Family Medicine
DX: E11.65 Type 2 diabetes mellitus with hyperglycemia (principal); D72.829 Elevated white blood cell count, unspecified; I63.9 Cerebral infarction, unspecified

== ENCOUNTER → 2018-12-03 | Outpatient (CLI) | payer OTHER ==
[~2018-12-03] MED LIST changes: +EZET10TA PO; +FOLI1TAB11 PO; +ONDA4SOL PO
[2018-12-05 00:07] LABS: Lyme Disease IgG/IgM Antibodie <0.91 ISR (0.00-0.90); Lyme Disease IgM Ab Quantitati <0.80 index (0.00-0.79)
== END ==
LOC: M LAB 08:34
PROVIDERS: ATTEND Family Medicine
DX: H53.9 Unspecified visual disturbance (principal)

== ENCOUNTER → 2018-12-08 | Outpatient (REF) | payer OTHER ==
[2018-12-08 13:36] LABS: AMORPHOUS SEDIMENT SMALL (NEGATIVE); APPEARANCE, URINE CLOUDY (CLEAR); BACTERIA, URINE AUTO 3+ (NEGATIVE); BILIRUBIN, URINE AUTO NEGATIVE (NEGATIVE); BLOOD, URINE BLOOD 1+ (NEGATIVE); COLOR, URINE YELLOW (YELLOW); GLUCOSE, URINE (UA) AUTO 1+ mg/dL (NEGATIVE); KETONE, URINE AUTO NEGATIVE (NEGATIVE); LEUKOCYTE ESTERASE, URINE AUTO NEGATIVE (NEGATIVE); MUCUS, URINE SMALL (NEGATIVE); NITRITE, URINE AUTO NEGATIVE (NEGATIVE); PROTEIN, URINE AUTO NEGATIVE (NEGATIVE); RBC, URINE AUTO 4 /HPF (0-3); SPECIFIC GRAVITY URINE AUTO 1.013 (1.002-1.035); SQUAMOUS EPITHELIAL CELL UR AU 9 /HPF (0-6); UROBILINOGEN, URINE AUTO 0.2 mg/dL (0.0-2.0); WBC, URINE AUTO 3 /HPF (0-3)
== END ==
LOC: M SFHCPLAZ 12:27
PROVIDERS: ATTEND Family Medicine
DX: R10.9 Unspecified abdominal pain (principal)

== ENCOUNTER → 2018-12-27 | Outpatient (REF) | payer OTHER | LOC: M SFHCPLAZ 09:55 | PROVIDERS: ATTEND Family Medicine | DX: R10.9 Unspecified abdominal pain (principal) ==

== ENCOUNTER → 2019-01-17 | Outpatient (REF) | payer OTHER ==
[2019-01-17 17:24] LABS: APPEARANCE, URINE HAZY (CLEAR); BACTERIA, URINE AUTO 1+ (NEGATIVE); BILIRUBIN, URINE AUTO NEGATIVE (NEGATIVE); BLOOD, URINE BLOOD 2+ (NEGATIVE); COLOR, URINE YELLOW (YELLOW); GLUCOSE, URINE (UA) AUTO 3+ mg/dL (NEGATIVE); KETONE, URINE AUTO NEGATIVE (NEGATIVE); LEUKOCYTE ESTERASE, URINE AUTO NEGATIVE (NEGATIVE); NITRITE, URINE AUTO NEGATIVE (NEGATIVE); PROTEIN, URINE AUTO NEGATIVE (NEGATIVE); RBC, URINE AUTO 4 /HPF (0-3); SPECIFIC GRAVITY URINE AUTO 1.008 (1.002-1.035); SQUAMOUS EPITHELIAL CELL UR AU 2 /HPF (0-6); UROBILINOGEN, URINE AUTO 0.2 mg/dL (0.0-2.0); WBC, URINE AUTO 1 /HPF (0-3)
== END ==
LOC: M SFHCPLAZ 15:44
PROVIDERS: ATTEND Nurse Practitioner Family
DX: R35.0 Frequency of micturition (principal)

== ENCOUNTER → 2019-01-26 | Outpatient (REF) | payer OTHER ==
[2019-01-26 10:30] LABS: BASO # 0.1 10^3/uL (0.0-0.2); BASO % 0.7 % (0.0-1.0); EOS # 0.4 10^3/uL (0.0-0.50); EOS % 2.4 % (0.0-3.0); HEMATOCRIT 35.3 % (36.0-47.0); HEMOGLOBIN 11.6 g/dl (12.0-15.5); MEAN CORPUSCULAR HEMOGLOBIN 30.2 pg (27.0-33.0); MEAN CORPUSCULAR HGB CONC 32.9 g/dl (32.0-36.5); MEAN CORPUSCULAR VOLUME 91.9 fl (80.0-96.0); MONO # 1.3 10^3/uL (0.0-0.8); MONO % 7.7 % (0.0-5.0); NEUTROPHILS # 11.5 10^3/uL (1.8-7.7); NEUTROPHILS % 65.8 % (36.0-66.0); PLATELET COUNT, AUTOMATED 387 10^3/uL (150-450); RED BLOOD COUNT 3.84 10^6/uL (4.00-5.40); WHITE BLOOD COUNT 17.4 10^3/uL (4.0-10.0)
[2019-01-26 10:50] LABS: ERYTHROCYTE SEDIMENTATION RATE 29 mm/hr (0-20)
== END ==
LOC: M SFHCPLAZ 09:02
PROVIDERS: ATTEND Family Medicine
DX: R29.818 Other symptoms and signs involving the nervous system (principal); D72.828 Other elevated white blood cell count

== ENCOUNTER → 2019-01-27 | Outpatient (REF) | payer OTHER ==
[~2019-01-27] MED LIST changes: -EZET10TA PO; +EZET10TA21 PO
== END ==
LOC: M LABDRAWP 14:35
PROVIDERS: ATTEND Family Medicine
DX: D72.828 Other elevated white blood cell count (principal)

== ENCOUNTER → 2019-01-28 | Outpatient (RCR) | payer OTHER ==
[~2019-01-28] MED LIST changes: +EZET10TA PO; -EZET10TA21 PO
--- NOTE | 2019-01-28 11:38 | NUR ---
Pt was referred for speech therapy evaluation d/t CVA 01/14/19. Pt demonstrated adequate receptive language skills. Expressive language tasks were impacted by significantly impaired fluency w/ frequent sound repetitions. The pt had difficulty w/ repetition of sentences of increasing length d/t high frequency of stuttering, which caused her to eventually abandon the utterance. On oral motor exam, pt demonstrated decreased rate of movement of tongue & lips, but otherwise this was structurally and functionally wnl. No evidence of nonverbal oral apraxia. These characteristics are most consistent w/ neurogenic stuttering, although a mild expressive aphasia cannot be excluded. Recommending speech therapy services 1-2x/week. Addendum: 01/28/19 at 1152 by SHARON BISWAS [facility] Amended: Links added.
== END ==
LOC: M ST 10:15
PROVIDERS: ATTEND Family Medicine
DX: I63.9 Cerebral infarction, unspecified (principal)

== ENCOUNTER → 2019-02-09 | Outpatient (CLI) | payer OTHER ==
[~2019-02-09] MED LIST changes: -EZET10TA PO; +EZET10TA21 PO
--- NOTE | 2019-02-09 15:19 | REP ---
CT Head without contrast HISTORY: Neurological deficit COMPARISON: 01/14/2019 An area of decreased attenuation is present in the posterior right temporal parietal and occipital lobes. There is dilatation of the overlying cortical sulci and atrium and occipital horn of the right lateral ventricle. This represents an old infarction. Areas of decreased attenuation are present in the basal ganglia and left thalamus. These represent old lacunar infarctions. Areas of decreased attenuation are present in the periventricular white matter. This represents small-vessel ischemic disease. There is no intraparenchymal hemorrhage, acute infarct, mass or midline shift. The ventricular system and cortical sulci are dilated consistent with minimal volume loss. There is no extra cerebral collection. There is no fracture. The visualized sinuses are clear. IMPRESSION: 1. Old right temporal parietal and occipital lobe infarction 2. Lobe at the lateral base a ganglia and left thalamic lacunar infarctions. 3. Small vessel ischemic disease. 4. Minimal volume loss. Electronically Signed by Alejandro Carreon MD 02/09/2019 03:11 P
== END ==
LOC: M RAD 14:48
PROVIDERS: ATTEND Family Medicine
DX: I63.9 Cerebral infarction, unspecified (principal); Z86.73 Personal history of transient ischemic attack (TIA), and cerebral infarction without residual deficits; I67.82 Cerebral ischemia

== ENCOUNTER 2019-02-25 11:30 | Outpatient (RCR) | payer OTHER | END 2019-02-27 | LOC: M ST 11:30 | PROVIDERS: ATTEND Family Medicine | DX: Z51.89 Encounter for other specified aftercare (principal) ==

== ENCOUNTER → 2019-03-05 | Outpatient (CLI) | payer OTHER ==
[~2019-03-05] MED LIST changes: +ASPI-524 PO; -ASPI1TAB20 PO
== END ==
LOC: M LAB 08:43
PROVIDERS: ATTEND Family Medicine
DX: R10.9 Unspecified abdominal pain (principal)

== ENCOUNTER → 2019-03-07 | Outpatient (REF) | payer OTHER | LOC: M SFHCPLAZ 07:49 | PROVIDERS: ATTEND Family Medicine | DX: E11.65 Type 2 diabetes mellitus with hyperglycemia (principal) ==

== ENCOUNTER 2019-03-29 07:51 | Outpatient (RCR) | payer OTHER | END 2019-03-30 | LOC: M ST 07:51 | PROVIDERS: ATTEND Family Medicine | DX: Z51.89 Encounter for other specified aftercare (principal); I69.328 Other speech and language deficits following cerebral infarction ==

== ENCOUNTER 2019-04-13 08:07 | Outpatient (RCR) | payer OTHER | END 2019-04-30 | LOC: M ST 08:07 | PROVIDERS: ATTEND Family Medicine | DX: Z51.89 Encounter for other specified aftercare (principal); I63.9 Cerebral infarction, unspecified ==

== ENCOUNTER 2019-05-16 08:15 | Outpatient (RCR) | payer OTHER ==
[~2019-05-16 08:15] MED LIST changes: -ALBU17IN2 INH; -ASPI-524 PO; +ASPI325T57 PO; +METF-791 PO; -METF500T4 PO; +PROV108A INH
== END 2019-05-30 ==
LOC: M ST 08:15
PROVIDERS: ATTEND Family Medicine
DX: I69.328 Other speech and language deficits following cerebral infarction (principal)

== ENCOUNTER → 2019-05-25 | Outpatient (REF) | payer OTHER ==
[2019-05-25 13:05] LABS: CREATININE FOR GFR 1.33 MG/DL (0.55-1.30); GLOMERULAR FILTRATION RATE 45.9 (>58); POTASSIUM SERUM 4.6 MEQ/L (3.5-5.1)
[2019-05-25 13:35] LABS: HEMOGLOBIN A1c 8.4 %
[2019-05-25 14:03] LABS: MALB URINE SIEMENS 45.3 MG/L; MAU/CREAT RATIO 36.2 MCG/MG (0.0-30.0)
== END ==
LOC: M SFHCPLAZ 09:37
PROVIDERS: ATTEND Family Medicine
DX: E11.65 Type 2 diabetes mellitus with hyperglycemia (principal)

== ENCOUNTER 2019-06-09 12:24 | Emergency (ER) | payer OTHER ==
[~2019-06-09] VITALS: Ht 154.9 cm; Wt 100.9 kg
[2019-06-09] MEDS ORDERED: TRES1INJ SQ (12:47)
[2019-06-09] MEDS ORDERED: LISI10TA4 PO (12:47)
[2019-06-09] MEDS ORDERED: MECL-86 PO (12:47)
[2019-06-09] MEDS ORDERED: ONDA4TAB6 PO (12:47)
[2019-06-09] MEDS ORDERED: LEVOTAB10 PO (12:47)
[2019-06-09] MEDS ORDERED: VITA100T98 PO (12:47)
[2019-06-09] MEDS ORDERED: MAGN400T2 PO (12:47)
[2019-06-09] MEDS ORDERED: AMOX875T PO (12:48)
[2019-06-09 13:02] LABS: BASO # 0.1 10^3/uL (0.0-0.2); BASO % 0.6 % (0.0-1.0); EOS # 0.6 10^3/uL (0.0-0.5); EOS % 3.7 % (0.0-3.0); HEMATOCRIT 37.5 % (36.0-47.0); HEMOGLOBIN 12.1 g/dl (12.0-15.5); LYMPH # 4.3 10^3/uL (1.5-5.0); LYMPH % 25.1 % (24.0-44.0); MEAN CORPUSCULAR HGB CONC 32.3 g/dl (32.0-36.5); MEAN CORPUSCULAR VOLUME 89.9 fl (80.0-96.0); MONO # 1.4 10^3/uL (0.0-0.8); NEUTROPHILS # 10.7 10^3/uL (1.5-8.5); NEUTROPHILS % 62.2 % (36.0-66.0); PLATELET COUNT, AUTOMATED 439 10^3/uL (150-450); RED BLOOD COUNT 4.17 10^6/uL (4.00-5.40); WHITE BLOOD COUNT 17.1 10^3/uL (4.0-10.0)
[2019-06-09 13:29] LABS: BLOOD UREA NITROGEN 32 MG/DL (7-18); CALCIUM LEVEL 9.4 MG/DL (8.5-10.1); CARBON DIOXIDE LEVEL 23 MEQ/L (21-32); CHLORIDE LEVEL 107 MEQ/L (98-107); CREATININE FOR GFR 1.43 MG/DL (0.55-1.30); GLOMERULAR FILTRATION RATE 42.2 (>58); GLUCOSE, FASTING 213 MG/DL (70-100); POTASSIUM SERUM 4.7 MEQ/L (3.5-5.1); SODIUM LEVEL 139 MEQ/L (136-145)
--- NOTE | 2019-06-09 13:42 | REP ---
CT BRAIN WITHOUT CONTRAST: HISTORY: Headache. Rule out stroke. Comparison head CT studies are from February 09, 2019 and January 14, 2019. Comparison MRI images January 14, 2019. CT FINDINGS: Preliminary digital animal husbandry manager radiograph is unremarkable. The bony calvarium remains intact. There is no CT evidence of significant paranasal sinus disease. There is minimal vascular calcification. On soft tissue window settings, there are old lacunar infarcts again noted in the left thalamus, left basal ganglia, right basal ganglia. There is an old cortical infarct in the right occipital and parietal lobe. These findings are unchanged. There is no evidence of intracranial hemorrhage. No new infarction is appreciated. No extra-axial fluid collection is seen. No mass or midline shift is seen. IMPRESSION: Old bilateral basal ganglia lacunar infarcts and old right occipitoparietal infarct again seen. No acute intracranial abnormality. Electronically Signed by Corey Briceño MD 06/10/2019 04:13 P
--- NOTE | 2019-06-09 13:50 | REP ---
PORTABLE CHEST X-RAY: Single view. HISTORY: CVA. COMPARISON CHEST X-RAY: January 14, 2019. FINDINGS: EKG electrodes are seen. The lungs are symmetrically aerated and free of infiltrate. Cardiomediastinal silhouette is unremarkable. Pulmonary vasculature is not increased. No bony abnormality is seen. IMPRESSION: No acute disease. Electronically Signed by Corey Briceño MD 06/09/2019 02:43 P
[2019-06-09] MEDS ORDERED: METOCLOPRAMIDE INJ 10MG/2ML VIAL (J2765) IV ONE (14:00)
[2019-06-09] MEDS ORDERED: NS 1,000 ML IV ONE (14:00)
[2019-06-09 14:07] LABS: INR 0.95; PROTHROMBIN TIME 12.4 SECONDS (11.8-14.0)
[2019-06-09 14:09] LABS: CK-MB VALUE MASS 1.3 NG/ML (<3.6); CPK CREATINE PHOSPHOKINASE 100 U/L (26-192); TROPONIN I < 0.02 NG/ML (< 0.10)
[2019-06-09] MEDS ORDERED: diphenhydrAMINE INJ 50MG/ML VIAL (J1200) IV ONE (16:15)
[2019-06-09] MEDS ORDERED: ACETAMINOPHEN *IV* 1,000 MG in IV 1 EA IV ONE (16:15)
[2019-06-09 17:13] VITALS: BP 151/93
--- NOTE | 2019-06-10 07:26 | ECGEPIP ---
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
== END 2019-06-09 17:21 | disposition home or self-care (01) ==
LOC: M ED 12:24
DX: G43.909 Migraine, unspecified, not intractable, without status migrainosus (principal); E11.9 Type 2 diabetes mellitus without complications; I10 Essential (primary) hypertension; Z86.73 Personal history of transient ischemic attack (TIA), and cerebral infarction without residual deficits; Z79.899 Other long term (current) drug therapy; Z79.82 Long term (current) use of aspirin; Z79.4 Long term (current) use of insulin
CPT/HCPCS: 70450; 71045; 80048; 82550; 82553; 85025; 85610; 85730; 86850; 86900; 86901; 93005; 93041; 94760; 96374; 99285; J2765

== ENCOUNTER → 2019-06-30 | Outpatient (REF) | payer OTHER ==
[~2019-06-30] MED LIST changes: +AMOX875T PO; +LEVOTAB10 PO; +MAGN400T2 PO; +MECL-86 PO; +ONDA4TAB6 PO; +TRES1INJ SQ; +VITA100T98 PO
[2019-06-30 15:37] LABS: BASO # 0.1 10^3/uL (0.0-0.2); BASO % 0.8 % (0.0-1.0); EOS # 0.4 10^3/uL (0.0-0.5); EOS % 2.7 % (0.0-3.0); HEMATOCRIT 35.6 % (36.0-47.0); HEMOGLOBIN 11.2 g/dl (12.0-15.5); LYMPH # 4.1 10^3/uL (1.5-5.0); LYMPH % 27.2 % (24.0-44.0); MEAN CORPUSCULAR HEMOGLOBIN 28.2 pg (27.0-33.0); MEAN CORPUSCULAR HGB CONC 31.5 g/dl (32.0-36.5); MEAN CORPUSCULAR VOLUME 89.7 fl (80.0-96.0); MONO # 1.2 10^3/uL (0.0-0.8); MONO % 7.8 % (0.0-5.0); NEUTROPHILS # 9.3 10^3/uL (1.5-8.5); NEUTROPHILS % 61.2 % (36.0-66.0); PLATELET COUNT, AUTOMATED 434 10^3/uL (150-450); RED BLOOD COUNT 3.97 10^6/uL (4.00-5.40); WHITE BLOOD COUNT 15.2 10^3/uL (4.0-10.0)
[2019-06-30 15:42] LABS: CALCIUM LEVEL 9.5 MG/DL (8.5-10.1); CREATININE FOR GFR 1.23 MG/DL (0.55-1.30); GLOMERULAR FILTRATION RATE 50.3 (>58); POTASSIUM SERUM 4.8 MEQ/L (3.5-5.1)
== END ==
LOC: M SFHCPLAZ 13:40
PROVIDERS: ATTEND Family Medicine
DX: D72.829 Elevated white blood cell count, unspecified (principal); N18.3 Chronic kidney disease, stage 3 (moderate); Z86.39 Personal history of other endocrine, nutritional and metabolic disease

== ENCOUNTER → 2019-07-27 | Outpatient (CLI) | payer OTHER ==
[2019-07-27 18:46] LABS: CALCIUM LEVEL 9.7 MG/DL (8.5-10.1); CREATININE FOR GFR 1.4 MG/DL (0.55-1.30); GLOMERULAR FILTRATION RATE 43.3 (>58); POTASSIUM SERUM 4.9 MEQ/L (3.5-5.1)
== END ==
LOC: M LAB 17:30
PROVIDERS: ATTEND Psychiatry & Neurology Neurology
DX: G43.709 Chronic migraine without aura, not intractable, without status migrainosus (principal); I63.9 Cerebral infarction, unspecified

== ENCOUNTER → 2019-08-01 | Outpatient (CLI) | payer OTHER ==
[~2019-08-01] MED LIST changes: +PROHANCE 279.3MG/ML 5ML VIAL (A9576) As Ordered ONE
--- NOTE | 2019-08-01 15:33 | REP ---
MRI brain: 08/01/2019. Indication: Stroke. Comparison: 01/14/2019. Technique: Multiplanar short and long TR sequences of the brain were obtained including post-gadolinium images. 10 ml IV ProHance were administered. Findings: There are no areas of restricted diffusion to suggest an acute infarction. There is no intracranial mass effect, hydrocephalus or significant hemorrhage. There are areas of small chronic blood products within the right STUDY DIRECTOR infarction. The large intracranial flow voids are unremarkable. Encephalomalacia/gliosis is noted within the right parietal occipital region. There are multiple areas of elevated white matter T2 prolongation predominantly within the left turk radiata. Chronic new left greater than right basal ganglia and thalamic lacunar infarctions are present. There are no areas of pathologic gadolinium enhancement intracranially. Impression: No acute intracranial process. Chronic right STUDY DIRECTOR infarction. Chronic basal ganglia and thalamic lacunar infarctions more pronounced on the left. Abnormal white matter signal most consistent with sequelae of chronic microangiopathic ischemic disease. History of hypertension or diabetes? Electronically Signed by Kana Swift DO 08/01/2019 03:25 P
== END ==
LOC: M RAD 12:49
PROVIDERS: ATTEND Psychiatry & Neurology Neurology
DX: I63.9 Cerebral infarction, unspecified (principal); G43.101 Migraine with aura, not intractable, with status migrainosus; R90.82 White matter disease, unspecified
CPT/HCPCS: 70553; A9576

== ENCOUNTER → 2019-08-29 | Outpatient (REF) | payer OTHER ==
[~2019-08-29] MED LIST changes: -PROHANCE 279.3MG/ML 5ML VIAL (A9576) As Ordered ONE
[2019-08-29 18:26] LABS: PERCENT SATURATION 12.2 % (13.2-45.0)
== END ==
LOC: M LAB REF 17:00
PROVIDERS: ATTEND Internal Medicine Nephrology
DX: D64.9 Anemia, unspecified (principal)

== ENCOUNTER → 2020-06-12 | Outpatient (REF) | payer OTHER ==
[~2020-06-12] MED LIST changes: -METF-791 PO; +METF-838 PO; -MONT10TA2 PO; +MONT10TA4 PO; -VERA120T2 PO; +VERA120T9 PO
[2020-06-12 18:15] LABS: PERCENT SATURATION 11.7 % (13.2-45.0)
== END ==
LOC: M LAB REF 17:12
PROVIDERS: ATTEND Internal Medicine Nephrology
DX: D64.9 Anemia, unspecified (principal)

== ENCOUNTER → 2020-06-18 | Outpatient (REF) | payer OTHER ==
[2020-06-18 10:45] LABS: BASO # 0.2 10^3/uL (0.0-0.2); BASO % 0.8 % (0.0-1.0); EOS # 0.5 10^3/uL (0.0-0.5); EOS % 2.6 % (0.0-3.0); HEMATOCRIT 36.3 % (36.0-47.0); HEMOGLOBIN 11.1 g/dl (12.0-15.5); LYMPH # 4.8 10^3/uL (1.5-5.0); LYMPH % 23.1 % (24.0-44.0); MEAN CORPUSCULAR HGB CONC 30.6 g/dl (32.0-36.5); MEAN CORPUSCULAR VOLUME 91.4 fl (80.0-96.0); MONO # 1.6 10^3/uL (0.0-0.8); MONO % 7.8 % (0.0-5.0); NEUTROPHILS # 13.4 10^3/uL (1.5-8.5); NEUTROPHILS % 65.2 % (36.0-66.0); PLATELET COUNT, AUTOMATED 538 10^3/uL (150-450); RED BLOOD COUNT 3.97 10^6/uL (4.00-5.40); WHITE BLOOD COUNT 20.6 10^3/uL (4.0-10.0)
[2020-06-18 11:08] LABS: CHOLESTEROL LEVEL 113 MG/DL (<200); CHOLESTEROL RISK RATIO 3.228 (<5); HDL CHOLESTEROL 35 MG/DL (>40); LDL CHOLESTEROL 30 MG/DL (<100); NON-HDL-C 78 MG/DL; TRIGLYCERIDES LEVEL 242 MG/DL (<150)
[2020-06-18 11:23] LABS: VITAMIN B12 LEVEL > 2000 PG/ML (247-911)
== END ==
LOC: M SFHCPLAZ 09:15
PROVIDERS: ATTEND Family Medicine
DX: D72.829 Elevated white blood cell count, unspecified (principal); I69.30 Unspecified sequelae of cerebral infarction; I63.9 Cerebral infarction, unspecified; Z86.39 Personal history of other endocrine, nutritional and metabolic disease

== ENCOUNTER 2020-07-18 21:48 | Emergency (ER) | payer OTHER ==
[~2020-07-18] VITALS: Ht 154.9 cm; Wt 107.3 kg
[~2020-07-18 21:48] MED LIST changes: -B-2100TA PO; -FERR32TA PO; -GLIP5TAB8 PO; -PROHANCE 279.3MG/ML 15ML VIAL As Ordered ONE; -PROHANCE 279.3MG/ML 5ML VIAL As Ordered ONE
[2020-07-18] MEDS ORDERED: FERR32TA PO (22:15)
[2020-07-18] MEDS ORDERED: B-2100TA PO (22:15)
[2020-07-18] MEDS ORDERED: GLIP5TAB8 PO (22:15)
[2020-07-18 22:37] LABS: BASO # 0.1 10^3/uL (0.0-0.2); BASO % 0.7 % (0.0-1.0); EOS # 0.5 10^3/uL (0.0-0.5); HEMATOCRIT 35.6 % (36.0-47.0); LYMPH # 3.3 10^3/uL (1.5-5.0); LYMPH % 18.5 % (24.0-44.0); MEAN CORPUSCULAR HEMOGLOBIN 27.8 pg (27.0-33.0); MEAN CORPUSCULAR HGB CONC 30.9 g/dl (32.0-36.5); MEAN CORPUSCULAR VOLUME 89.9 fl (80.0-96.0); MONO # 1.3 10^3/uL (0.0-0.8); MONO % 7.2 % (0.0-5.0); NEUTROPHILS # 12.6 10^3/uL (1.5-8.5); NEUTROPHILS % 70.2 % (36.0-66.0); PLATELET COUNT, AUTOMATED 473 10^3/uL (150-450); RED BLOOD COUNT 3.96 10^6/uL (4.00-5.40); WHITE BLOOD COUNT 17.9 10^3/uL (4.0-10.0)
[2020-07-18 22:50] LABS: INR 0.95; PROTHROMBIN TIME 12.9 SECONDS (12.5-14.3)
[2020-07-18 22:51] LABS: PARTIAL THROMBOPLASTIN TIME 28.4 SECONDS (24.2-38.5)
[2020-07-18] MEDS ORDERED: LABETALOL 100MG/20ML VIAL IV STA ×2 (22:53→23:03)
[2020-07-18 23:07] VITALS: BP 185/75
[2020-07-18 23:12] LABS: BLOOD UREA NITROGEN 25 MG/DL (7-18); CALCIUM LEVEL 8.6 MG/DL (8.5-10.1); CARBON DIOXIDE LEVEL 22 MEQ/L (21-32); CHLORIDE LEVEL 110 MEQ/L (98-107); CPK CREATINE PHOSPHOKINASE 110 U/L (26-192); CREATININE FOR GFR 1.52 MG/DL (0.55-1.30); GLOMERULAR FILTRATION RATE 39.2 (>58); GLUCOSE, FASTING 208 MG/DL (70-100); MB/CK RELATIVE INDEX 1.82 (< OR =4); POTASSIUM SERUM 5.2 MEQ/L (3.5-5.1); SODIUM LEVEL 138 MEQ/L (136-145); TROPONIN I < 0.02 NG/ML (< 0.10)
--- NOTE | 2020-07-18 23:14 | REPVR ---
PROCEDURE INFORMATION: Exam: XR Chest, 1 View Exam date and time: 07/18/2020 10:43 PM Age: 44 years old Clinical indication: Pain; Other: CVA TECHNIQUE: Imaging protocol: XR of the chest Views: 1 view. COMPARISON: MS PORTABLE CHEST X-RAY 06/09/2019 1:21 PM FINDINGS: Limitations: Examination is limited by body habitus. Lungs: Unremarkable. No consolidation. Pleural space: Unremarkable. No pleural effusion. No pneumothorax. Heart/Mediastinum: Unremarkable. No cardiomegaly. Vasculature: Mild atherosclerotic calcification of the aortic arch. Bones/joints: Unremarkable. IMPRESSION: No acute infiltrates. Electronically signed by: Debbie Goznalez On 07/18/2020 23:14:00 PM
[2020-07-18 23:45] VITALS: BP 161/93
--- NOTE | 2020-07-19 14:27 | ECGEPIP ---
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
== END 2020-07-18 23:57 | disposition short-term general hospital (02) ==
LOC: M ED 21:48
DX: I63.89 Other cerebral infarction (principal); E11.9 Type 2 diabetes mellitus without complications; I10 Essential (primary) hypertension; J45.909 Unspecified asthma, uncomplicated; E78.5 Hyperlipidemia, unspecified; G43.909 Migraine, unspecified, not intractable, without status migrainosus; H54.8 Legal blindness, as defined in USA; Z79.899 Other long term (current) drug therapy; Z79.82 Long term (current) use of aspirin; Z79.4 Long term (current) use of insulin

== ENCOUNTER → 2020-07-18 | Outpatient (CLI) | payer OTHER ==
[~2020-07-18] MED LIST changes: +B-2100TA PO; +FERR32TA PO; +GLIP5TAB8 PO; +PROHANCE 279.3MG/ML 15ML VIAL As Ordered ONE; +PROHANCE 279.3MG/ML 5ML VIAL As Ordered ONE
--- NOTE | 2020-07-18 19:26 | REPVR ---
PROCEDURE INFORMATION: Exam: MR Head Without and With Contrast Exam date and time: 07/18/2020 6:56 PM Age: 44 years old Clinical indication: Pain and condition or disease; Headache and other: "white matter disease"; Tension; Cluster; Patient HX: , HX multiple strokes/white matter disease; Additional info: G43.101- migraine, HX multiple strokes/white matter disease TECHNIQUE: Imaging protocol: MR of the head without and with intravenous contrast. 3D rendering (Not supervised by radiologist): MIP and/or 3D reconstructed images were created by the technologist. Contrast material: PROHANCE; Contrast volume: 10 ml; Contrast route: INTRAVENOUS (IV); COMPARISON: MRI-Brain W/O FOLL BY WITH 08/01/2019 1:39 PM FINDINGS: Brain: A punctate focus of true diffusion restriction in the lateral right thalamus consistent with an acute lacunar infarct. Chronic right parietooccipital STAVE MACHINE TENDER territory infarct again demonstrated. Several chronic lacunar infarcts, for example left turk radiata, left thalamus and left basal ganglia, also present previously. The T2 weighted imaging demonstrates foci of increased signal intensity in the deep and subcortical white matter which are nonspecific, may represent chronic small vessel ischemic change. No abnormal enhancement on the postcontrast imaging. No evidence of recent parenchymal hemorrhage. The right occipital infarct demonstrates hemosiderin staining on the gradient echo imaging in keeping with remote hemorrhagic conversion. Cerebral ventricles: There is ex vacuo enlargement of the posterior right lateral ventricle. Bones/joints: Unremarkable. Paranasal sinuses: Normal as visualized. No acute sinusitis. Mastoid air cells: Trace left mastoid effusion. Orbits: Unremarkable. Soft tissues: Unremarkable. IMPRESSION: A punctate, acute lacunar infarct in the right thalamus. Electronically signed by: Franca Mccormick On 07/18/2020 19:26:44 PM
== END ==
LOC: M RAD 17:45
PROVIDERS: ATTEND Psychiatry & Neurology Neurology
DX: G43.101 Migraine with aura, not intractable, with status migrainosus (principal); R25.1 Tremor, unspecified; I63.9 Cerebral infarction, unspecified; I69.30 Unspecified sequelae of cerebral infarction; H53.462 Homonymous bilateral field defects, left side; F44.7 Conversion disorder with mixed symptom presentation
CPT/HCPCS: 70553; A9576

== ENCOUNTER → 2020-07-24 | Outpatient (CLI) | payer OTHER ==
[~2020-07-24] MED LIST changes: +B-2100TA PO; +FERR32TA PO; +GLIP5TAB8 PO
[2020-07-24 13:55] LABS: CREATININE FOR GFR 1.53 MG/DL (0.55-1.30); GLOMERULAR FILTRATION RATE 38.9 (>58); POTASSIUM SERUM 5.1 MEQ/L (3.5-5.1)
== END ==
LOC: M PLALAB 11:56
PROVIDERS: ATTEND Nurse Practitioner Family
DX: E11.65 Type 2 diabetes mellitus with hyperglycemia (principal)

== ENCOUNTER 2020-08-07 12:23 | Outpatient (CLI) | payer OTHER ==
[~2020-08-07] VITALS: Ht 154.9 cm; Wt 107.3 kg
[~2020-08-07 12:23] MED LIST changes: -MONT10TA4 PO; +MONT5TAB2 PO
[2020-08-07 12:30] VITALS: BP 143/76
[2020-08-07] MEDS ORDERED: NS 1,000 ML IV SCH (12:30)
[2020-08-07] MEDS ORDERED: IRON SUCROSE 25 MG in NS 25 ML IV ONE (12:30)
[2020-08-07] MEDS ORDERED: IRON SUCROSE 200 MG in NS 200 ML IV ONE (12:30)
[2020-08-07 14:10] VITALS: BP 151/74
[2020-08-07 15:30] VITALS: BP 154/85
== END 2020-08-07 15:50 | disposition home or self-care (01) ==
LOC: M INFU 12:23
PROVIDERS: ATTEND Internal Medicine Nephrology
DX: D50.9 Iron deficiency anemia, unspecified (principal)
CPT/HCPCS: 96365; 96366; J1756

== ENCOUNTER → 2020-09-12 | Outpatient (REF) | payer OTHER ==
[2020-09-12 18:36] LABS: PERCENT SATURATION 16.1 % (13.2-45.0)
== END ==
LOC: M LAB REF 16:42
PROVIDERS: ATTEND Internal Medicine Nephrology
DX: D64.9 Anemia, unspecified (principal)

== ENCOUNTER → 2020-10-30 | Outpatient (CLI) | payer OTHER ==
[~2020-10-30] MED LIST changes: +LISI10TA22 PO; -LISI10TA4 PO; -LISI40TA PO; +LISI40TA4 PO; +MONT10TA10 PO; -MONT5TAB2 PO
--- NOTE | 2020-10-30 13:52 | REP ---
INDICATION: CKD III B AND RETENTION OF URINE COMPARISON: 09/10/2018 TECHNIQUE: Real time christianson scale ultrasound examination using curved array transducer. FINDINGS: The bilateral kidneys are relatively normal in contour, size, echogenicity, and reniform shape. Increased central sinus fat is consistent with the given history of chronic renal disease. No hydronephrosis, nephrolithiasis, cystic or renal mass lesion. Right kidney measures 10.6 x 5.7 x 5.7 cm. Left kidney measures 12.9 x 4.1 x 6.1 cm. IMPRESSION: 1. Mild discrepancy in renal size is nonspecific. 2. Findings consistent with chronic renal disease. No hydronephrosis. <Electronically signed by Trent Sullivan > 10/30/20 [id number]
--- NOTE | 2020-10-30 13:53 | REP ---
INDICATION: CKD III B AND RETENTION OF URINE, WITH PVR COMPARISON: None TECHNIQUE: Real time B-mode ultrasound examination using curved array transducer. FINDINGS: Bladder is normal in appearance without wall thickening or mass lesion. Bilateral ureteral jets are identified. Prevoid bladder measures 11.7 x 9.4 x 7.2 cm (517 cc). Postvoid bladder measures 2.7 x 4.2 x 2.0 cm (15 cc). Postvoid residual: 3% IMPRESSION: 1. Normal bladder ultrasound. <Electronically signed by Trent Sullivan > 10/30/20 [id number]
== END ==
LOC: M RAD 12:32
PROVIDERS: ATTEND Internal Medicine Nephrology
DX: N18.32 Chronic kidney disease, stage 3b (principal); R33.9 Retention of urine, unspecified

== ENCOUNTER → 2020-12-20 | Outpatient (REF) | payer OTHER ==
[2020-12-20 18:29] LABS: PERCENT SATURATION 19.4 % (13.2-45.0)
== END ==
LOC: M LAB REF 16:54
PROVIDERS: ATTEND Internal Medicine Nephrology
DX: D64.9 Anemia, unspecified (principal)

== ENCOUNTER → 2021-04-29 | Outpatient (REF) | payer OTHER | LOC: M LAB REF 16:52 | PROVIDERS: ATTEND Internal Medicine Nephrology | DX: E83.42 Hypomagnesemia (principal) ==

== ENCOUNTER → 2021-06-10 | Outpatient (CLI) | payer OTHER ==
[~2021-06-10] MED LIST changes: +ISOVUE-300 61% 50ML VIAL As Ordered ONE; +LIDOCAINE 1% MDV 20ML VIAL As Ordered ONE; +TRIAMCINOLONE ACETONIDE SUSP 40 MG/ML VIAL (J3301) As Ordered ONE
--- NOTE | 2021-06-10 16:37 | REP ---
INDICATION: STRAIN OF MUSC/TEND OF ROTATOR CUFF RT SHOULDER. COMPARISON: None TECHNIQUE: The procedure was performed by YANCI Bain, under the direct supervision of Dr. Kimball. The benefits and risks of the procedure were explained to the patient, and an informed consent was obtained. Directly prior to the start of the procedure, a formal time-out was completed in the procedure room. The right glenohumeral joint space was localized using fluoroscopic guidance. The skin was prepped and draped in a sterile fashion. Approximately 5 mL of 1% Lidocaine 10 mg/ml was used as a local anesthetic. Using fluoroscopic guidance, a #22 gauge spinal needle was inserted and advanced into the right glenohumeral joint space. Approximately 1 mL of Isovue 300 was injected to verify placement. Seven mL of a solution containing 5 mL 1% lidocaine 10 mg/ml and 2 mL Kenalog 40 milligrams/milliliter was injected into the joint space. The needle was removed and hemostasis was achieved. FINDINGS: The patient tolerated the procedure well and there were no immediate complications. IMPRESSION: 1. Fluoroscopically guided right shoulder intra-articular pain injection. 0.2 minutes of fluoroscopy time was utilized for this procedure. Some fluoroscopic images are performed with last image hold technology. These images require no additional radiation. <Electronically signed by Mary Chavez > 06/10/21 [id number] <Electronically signed by Feliz Kimball > 06/10/21 1852
== END ==
LOC: M RADPRO 10:37
PROVIDERS: ATTEND Physician Assistant
DX: S46.011D Strain of muscle(s) and tendon(s) of the rotator cuff of right shoulder, subsequent encounter (principal)
CPT/HCPCS: 20610; 77002; J3301; Q9967

== ENCOUNTER → 2021-06-18 | Outpatient (CLI) | payer OTHER ==
[~2021-06-18] MED LIST changes: -ISOVUE-300 61% 50ML VIAL As Ordered ONE; -LIDOCAINE 1% MDV 20ML VIAL As Ordered ONE; -TRIAMCINOLONE ACETONIDE SUSP 40 MG/ML VIAL (J3301) As Ordered ONE
[2021-06-18 11:30] LABS: HCG, SERUM QUALITATIVE NEGATIVE (NEGATIVE)
== END ==
LOC: M PLALAB 08:47
PROVIDERS: ATTEND Family Medicine
DX: N91.2 Amenorrhea, unspecified (principal)

== ENCOUNTER 2021-07-06 13:47 | Emergency (ER) | payer OTHER ==
[~2021-07-06] VITALS: Ht 154.9 cm; Wt 114.0 kg
[2021-07-06 14:33] LABS: BASO # 0.1 10^3/uL (0.0-0.2); BASO % 0.8 % (0.0-1.0); EOS # 0.6 10^3/uL (0.0-0.5); EOS % 3.3 % (0.0-3.0); HEMATOCRIT 39.6 % (36.0-47.0); HEMOGLOBIN 12.5 g/dl (12.0-15.5); LYMPH # 3.9 10^3/uL (1.5-5.0); LYMPH % 22.2 % (24.0-44.0); MEAN CORPUSCULAR HEMOGLOBIN 28.1 pg (27.0-33.0); MEAN CORPUSCULAR HGB CONC 31.6 g/dl (32.0-36.5); MONO # 1.5 10^3/uL (0.0-0.8); MONO % 8.6 % (2.0-8.0); NEUTROPHILS # 11.4 10^3/uL (1.5-8.5); NEUTROPHILS % 64.7 % (36.0-66.0); PLATELET COUNT, AUTOMATED 418 10^3/uL (150-450); RED BLOOD COUNT 4.45 10^6/uL (4.00-5.40); WHITE BLOOD COUNT 17.6 10^3/uL (4.0-10.0)
[2021-07-06 14:39] LABS: INR 0.93; PROTHROMBIN TIME 12.8 SECONDS (12.7-14.5)
[2021-07-06 14:40] LABS: PARTIAL THROMBOPLASTIN TIME 29.4 SECONDS (25.9-37.0)
[2021-07-06 15:01] LABS: BLOOD UREA NITROGEN 44 MG/DL (7-18); CARBON DIOXIDE LEVEL 25 MEQ/L (21-32); CHLORIDE LEVEL 110 MEQ/L (98-107); CREATININE FOR GFR 1.98 MG/DL (0.55-1.30); GLOMERULAR FILTRATION RATE 28.8 (>58); GLUCOSE, FASTING 84 MG/DL (70-100); POTASSIUM SERUM 4.4 MEQ/L (3.5-5.1); SODIUM LEVEL 141 MEQ/L (136-145)
[2021-07-06 15:02] LABS: CALCIUM LEVEL 9.8 MG/DL (8.5-10.1); CPK CREATINE PHOSPHOKINASE 194 U/L (26-192); MB/CK RELATIVE INDEX 2.06 (< OR =4); TROPONIN I < 0.02 NG/ML (< 0.10)
[2021-07-06 15:04] LABS: HCG, SERUM QUALITATIVE NEGATIVE (NEGATIVE)
--- NOTE | 2021-07-06 15:22 | REP ---
INDICATION: Headache, left sided, h/o cvas. COMPARISON: MRI without and with 07/18/2020, CT 06/09/2019. TECHNIQUE: Noncontrast images of the brain with soft tissue and bone window settings and coronal reconstructions provided. FINDINGS: Lateral ventricles are midline, symmetric and their frontal horns and showing ex vacuo phenomenon the posterior horn on the right due to a old the parieto-occipital infarct but all of this is unchanged. There are bilateral lacunar infarcts in the basal ganglia as on previous MRI and CT scans. I do not see a definite a new lacunar infarct or nor any new vascular territory infarct. There is no intra or extra-axial hemorrhage, mass or mass effect. There is very minimal cortical atrophy allowing for stated age. Cerebellum shows no mass, infarct or atrophy. Basal cisterns are intact brainstem unremarkable. Bone windows show mastoid and sinus air cells intact. Allowing for age there is some heavy atherosclerotic calcification in the carotid siphons. Skull base and calvarium show no fracture or focal lesion. IMPRESSION: 1. An old right posterior cerebral artery territory infarct in the occipitoparietal region and bilateral basal ganglia lacunar infarcts, also old, but stable. I do not see an acute infarct, intracranial hemorrhage, mass, mass effect or edema. 2. Ex vacuo phenomenon in the posterior horn of the right lateral ventricle is again seen related to the old right QUALITY REVIEW TRAINER territory infarct. 3. Sinuses, mastoids, skull base and calvarium without acute finding. There is a rather heavy calcification in the carotid siphon allowing for her stated age. <Electronically signed by Dao Roger > 07/06/21 0356
--- OUTSIDE RECORDS SUMMARY | 2021-07-06 15:36 | CCD | Continuity of Care Document ---
Author Author Shawna CRENSHAW MD Organization Unknown Address [address] [place] [address], [address] [place] [address] Phone [phone] Care Team Providers Care Manager Of Training And Development Name Role Phone Vlad Prabhakar MD AUTM [phone] Tiara Hicks MD AUTM [phone] Frannie Varghese MD AUTM [phone] Problems Active Problems Provider Date Type 2 diabetes mellitus Onset: 10/01/19 10 Social History Type Date Description Comments Sex Unknown ETOH Use Never used alcohol Tobacco Use Start: Unknown Patient has never smoked Smoking Status Reviewed: 01/03/21 Patient has never smoked Allergies and adverse reactions Active Allergies Criticality Reaction | Severity Comments Date Bees Unable to assess criticality 04/21/2000 Medications Active Medications SIG Qnty Indications Ordering Provide r Date Trulicity 0.75mg/0.5 ML Solution Pen-Inject use once weekly, disp 90 day 2ml E11.65 Pastora hunt MD 06/10/2021 Onetouch Delica Plus Lancets Fine 30G Plus 30G Misc Use as Directed Once Daily 100units Cheyenne salcedo NP 05/01/2021 Prodigy Autocode Blood Glucose Monitorin g/Talking W/Device Kit use 3 times daily 1units E11.65 Cheyenne salcedo NP 01/03/2021 Insulin Lispro (1 Unit Dial) 100Unit/ML Solution Pen-Inject use 15 mins prior to meals. 10-10-10 units with each m eal. 15ml E11.65 Cheyenne Bernabe NP 01/03/2021 BD Insulin Syringe Ultra-Fine/0.5ML/31G X 8mm 31G X 5/16" 0.5 ML Misc use as directed three times daily 100units Cheyenne Bernabe NP 06/28/2020 Tresiba Flextouch 20 0Unit/ML Solution Pen-Inject inject 90 units subcutaneously once daily- 18ml E11.6 5 Pastora Crenshaw MD 03/19/2020 Prodigy No Coding Blood Glucose Test Str ips Strips use1 time daily variable days 100units E11.65 Cheyenne marin NP 12/26/2019 Prodigy Twist TOP Lancets 28G 28G Misc use 1 time daily 100units Cheyenne Bernabe NP 0 Alcohol Pads 70% Pads use as directed up to 1 x daily 100units Cheyenne Bernabe NP 0 Glipizide 5mg Tablets Take One Tablet By Mouth @8Am and Take One Tablet By Mouth @8PM 60tabs E11.65 Cheyenne Bernabe NP 06/27/2019 Gabapentin 300mg Capsules 3 by mouth daily Unknown Ubrelvy 50mg Tablets 1 by mouth as needed Unknown Amlodipine Besylate 5mg Tablets 1 po daily Unknown Lisinopril 5mg Tablets 1 po q d Unknown Ezetimibe 10mg Tablets 1 po q d Unknown Vitamin B-2 100mg Tablets 1 P O qd Unknown Topiramate 100mg Tablets 1 po bid Unknown Ketorolac Tromethamine 0.5% Solution prn Unknown Systane Ultra 0.4-0.3% Solution prn Unknown Ondansetron 4mg Tablets Dispers prn Unknown Magnesium Oxide 400mg Tablets 1 by mouth three times daily Unknown Levocetirizine Dihydrochloride 5mg Tablets 1 po qd Unknown Meclizine HCL 25mg Tablets 1 po bid Unknown Lipitor 80mg Tablets 1 by mouth every day Unknown Aspirin 325mg Tablets 1 by mouth every day Unknown Folic Acid 1mg Tablets 1 by mouth every day Unknown Labetalol HCL 200mg Tablets 1 by mouth qd Unknown History Medications Admelog Solostar 100 Unit/ML Solution Pen-Inject use 15 mins prior to meals. 6-6-10 units with each meal. mdd 22 units 15ml E11.65 Pastora Crenshaw MD 12/31/2020 - 01/03/2021 Immunizations Description No Information Available Vital Signs Date Vital Result Comment 06/10/2021 3:34pm BP Systolic 146 mmHg BP Diastolic 84 mmHg Heart Rate 88 /min Height 61.50 inches 5'1.50" Weight 249.00 lb BMI (Body Mass Index) 46.3 kg/m2 O2 % BldC Oximetry 98 % 01/03/2021 2:31pm BP Systolic 118 mmHg BP Diastolic 76 mmHg Heart Rate 95 /min Body Temperature 96.4 F Height 61.50 inches 5'1.50" Weight 234.00 lb BMI (Body Mass Index) 43.5 kg/m2 O2 % BldC Oximetry 97 % Results Test Acquired Date Facility Test Result H/L Range Note Laboratory test finding 06/10/2021 In House Hemoglobin A1c 11.1 Glucose 225 Laboratory test finding 01/03/2021 In House Glucose 330 Hemoglobin A1c 11.4 Procedures Date Code Description Status 06/10/2021 53415 Office/Outpatient Established [facility] 40-54 Min Completed 01/03/2021 43607 Office/Outpatient Established [facility] 40-54 Min Completed 03/2020 [id number] Diabetic Foot Exam Completed Medical Devices Description No Information Available Encounters Type Date Location Provider Dx Diagnosis Office Visit 01/03/2021 2:30p DR. Pastora Bernabe, Debbie P E11.65 Type 2 diabetes mellitus with hyperglycemia E11.22 Type 2 diabetes mellitus w d iabetic chronic kidney disease N18.32 Chronic kidney disease, stag e 3b Assessments Date Code Description Provider 06/10/2021 E11.65 Type 2 diabetes mellitus with hy perglycemia Pastora Crenshaw MD 06/10/2021 E11.22 Type 2 diabetes mellitus with di abetic chronic kidney disease Pastora Crenshaw MD 06/10/2021 N18.32 Chronic kidney disease, stage 3b Pastora Crenshaw MD 02/11/2021 E11.65 Type 2 diabetes mellitus with hy perglycemia Pastora Crenshaw MD 02/11/2021 E11.22 Type 2 diabetes mellitus with di abetic chronic kidney disease Pastora Crenshaw MD 02/11/2021 N18.32 Chronic kidney disease, stage 3b Pastora Crenshaw MD 01/03/2021 E11.65 Type 2 diabetes mellitus with hy perglycemia Cheyenne Bernabe, HORTICULTURAL THERAPIST 01/03/2021 E11.22 Type 2 diabetes mellitus with di abetic chronic kidney disease Cheyenne Bernabe, HORTICULTURAL THERAPIST 01/03/2021 N18.32 Chronic kidney disease, stage 3b Cheyenne Bernabe, HORTICULTURAL THERAPIST 12/20/2020 E11.65 Type 2 diabetes mellitus with hy perglycemia Pastora Crenshaw MD 12/20/2020 E11.22 Type 2 diabetes mellitus with di abetic chronic kidney disease Pastora Crenshaw MD 12/20/2020 N18.30 Chronic kidney disease, stage 3 unspecified Pastora Crenshaw MD Plan of Treatment Future Appointment(s):* 09/19/2021 10:45 am - Pastora Crenshaw MD at DR. Pastora Crenshaw 06/10/2021 - Pastora Crenshaw MD* E11.65 Type 2 diabetes mellitus with hyperglycemia* New Medication:* Trulicity 0.75 mg/0.5ML - use once weekly, disp 90 day * Comments:* A1c =11.1, bs= 225past a1c: 11.4 %,8.4%, 8.3%, 6.7%, 6.7%, 6.1%, 12-13% range, 8.4%, fall 2018- 7.5%) Blood sugars have decompensated ever since she stopped metformin July 2020. We are downloaded and reviewed: Greater than 200 and up to 350She is blind. She is not a candidate for pump therapy.Keep her regimen as simple as possible.Current medications: Tresiba 90 units once a day, Glipizide 5 mg tablets 1 tab with breakfast and dinner.Lispro 10 units with meals- only eats 1 or 2 meals. PT was advised to stop Metformin due to renal failure. 07/2020Cannot use GLP-1 or SGLT-2 due to renal failureRecommendations:#1: We'll restart Trulicity 0.75 mg once a week. Was on this prior to her stroke.#2: We'll give patient a sample of her [employer] Pedro to device.If she uses her phone as the scanning device her phone has some type of functionality were able actually read things to her, since she is blind.She will try this for 2 weeks and let us know. Advised to set the low alarm at 80 in the high alarm at 250. is a computer systems administrator. He says he will have no problems setting this up. * Follow up:* 3 months * E11.22 Type 2 diabetes mellitus with diabetic chronic kidney disease* Comments:* Following with nephrology. Stopped Metformin Nephrology note 03/2021, [facility]pileptic [facility] EGFR = 35Hemoglobin and hematocrit = 11/36Microalbumin ratio = 10.4 patient is getting IV iron is needed. * N18.32 Chronic kidney disease, stage 3b* Comments:* EGFR = 35, summer 2020 Functional Status Description No Information Available Mental Status Description No Information Available Referrals Refer to Reason for Referral Status Appt Date Pastora Crenshaw MD dm 2 Created [address], [address] [place] [address] [phone]
--- OUTSIDE RECORDS SUMMARY | 2021-07-06 15:36 | CCD ---
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 Active confirmed 37142586 Problem Stage 3b chronic kidney disease N18.32 Active confi rmed 393957567 Problem Dyslipidemia E78.5 Active confirmed 4475954 07 Problem Amenorrhea N91.2 Active confirmed 17269736 Problem Chronic rhinitis J31.0 Active confirmed 860 49477 ALLERGIES No Known Allergies ENCOUNTERS from 1975 to 2021-06-19 Encounter Location Date Provider Diagnosis [address] [phone] [place] [address] May, Frannie Varghese Annual physical exam Z00.00 ; Type 2 diabetes mellitus with hyperglycemia E11.65 ; long-term current use of insulin Z79.4 ; Essential hypertension I10 ; Mild intermittent asthma without complication J45.20 ; Hidradenitis suppurativa L73.2 ; History of CVA with residual deficit I69.30 ; 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 ; Heterozygous MTHFR mutation S0181W E72.12 ; Legally blind H54.8 ; History of non anemic vitamin B12 deficiency Z86.39 ; Other intervertebral disc degeneration, lumbar region M51.36 ; Chronic migraine without aura, not intractable, without status migrainosus G43.709 ; Encounter for screening mammogram for malignant neoplasm of breast Z12.31 ; Screening for colon cancer Z12.11 ; Dyslipidemia E78.5 ; Chronic rhinitis J31.0 ; Pain in right shoulder M25.511 ; Amenorrhea N91.2 and Stage 3b chronic kidney disease N18.32 IMMUNIZATIONS Vaccine Route Administration Date Status Influenza 18 yrs & older Flublok IM Intramuscular Jun 18, 2020 Administered Influenza 18 yrs & older Flublok IM Intramuscular Jun 22, 2019 Administered Vitamin B-12 1000mcg/1mL Cyanocobalamin IM Intramuscular November 302018 Administered Pneumococcal Adult 0.5mL Pneumovax 23 IM Intramuscular Apr 25, 2 019 Administered SOCIAL HISTORY Tobacco Use: Social History Observation Description Date Details (start date - stop date) Never Smoker Sex Assigned At : Social History Observation Description Sex Assigned At Unknown Education: Question Answer Notes Level of Education: College Audit Question Answer Notes Total Score: 0 Interpretation: Alcohol Education Language: Question Answer Notes Languages spoken: Pashto Roman Catholic: Question Answer Notes Roman Catholic No mu-ism beliefs that would impact health care. Sexual Hx: Question Answer Notes Had sex in the last 12 months (vaginal, oral, or anal)? No LMP: 04/28/2018 Have you ever had an STD? No Drug and Alcohol Question Answer Notes Total Score: 0 Interpretation: No problems reported Alcohol Screening: Question Answer Notes Did you have a drink containing alcohol in the past year? No Points 0 Interpretation Negative Tobacco Use: Question Answer Notes Are you a: never smoker REASON FOR REFERRAL No Information VITAL SIGNS Weight 246 lbs May, Height 61 in May, BMI 46.48 kg/m2 May, Heart Rate 80 /min May, Respiratory Rate 20 /min May, Temperature 97 degrees Fahrenheit May, Oximetry 96 May, Blood pressure systolic 130 mm Hg May, Blood pressure diastolic 80 mm Hg May, MEDICATIONS Medication SIG (Take, Route, Frequency, Duration) Notes Start Da te End Date Status Tresiba FlexTouch 200 UNIT/ML as directed Subcutaneous 70 units daily Active BD Pen Needle Wendy U/F 32G X 4 MM as directed subcutaneously fou r times daily Active glipiZIDE 5 MG 1 tablet with each meal MDD 2 Orally bid Active Labetalol HCl 200 MG TAKE ONE TABLET BY MOUTH @8PM Active Magnesium 400 MG 1 tablet Orally once a day Active amLODIPine Besylate 5 MG 1 tablet Orally Once a day Active CareFine Pen [place] 32G X 4 MM as directed subcutaneously bid Jan, Active Vitamin B12 1000 MCG 1 tablet Orally three times a week on thursday for 90 days Jul, Not-Taking Systane Ultra 0.4-0.3 % 1 drop Ophthalmic as needed Active Zofran ODT 4 MG 1 tablet on the tongue and a llow to dissolve Orally every 4 hours as needed for 90 days Acti ve Aspirin Adult 325 MG 1 tablet Orally Once a day Active Ezetimibe 10 MG TAKE ONE TABLET BY MOUTH @8AM Active Lancets - as directed subcutaneously Three times d aily before meals. DX: Z79.1 May, Active Meclizine HCl 25 MG TAKE ONE TABLET BY MOUTH @8A M and TAKE ONE TABLET @8PM for 28 Active Levocetirizine Dihydrochloride 5 MG TAKE ONE TABLET BY MOUTH @8PM Active Atorvastatin Calcium 80 MG TAKE ONE TABLET BY MOUTH @8PM Active Admelog SoloStar 100 UNIT/ML 6 units at breakfast and lunch and 8 units at dinner Subcutaneous Active Topamax 50 MG 2 tablets Orally bid A ctive Vitamin B-2 100 MG 1 tablet Orally Once a day Active Folic Acid 1 MG 1 tablet Orally Once a day for 28 Active Lisinopril 5 MG 1 tablet Orally Once a day Active Physical Therapy evaluate and treat as directed 1-3X/w [place], medically necessary to continue therapy; M25.511 Nov, Act alexis PROCEDURES No Information RESULTS Component Value Reference Range HCG SERUM QUALITATIVE Reviewed date:06/18/2021 11:38:08 Interpretation: Performing Lab:[facility], [facility] [id number] , ,[place] [address] HCG, SERUM QUALITATIVE NEGATIVE NEGATIVE REASON FOR VISIT Annual MEDICAL (GENERAL) HISTORY Type Description Date Medical History HTN Medical History HLD Medical History Recurrent CVA, 2017 and 12/2018 - Dr. Maravilla er Medical History Migraines - gets nerve blocks and Botox injections; Dr. Mata Medical History Legally blind due to CVA - [place] [facility] Medical History IDDM - Dr. Navarro Medical History Seasonal allergies Medical History Follows with [facility]; has a he art loop Medical History Heterozygous MTHFR mutations C677T and K9496H - previously saw Heme/Onc in [place] Medical History Hyperhomocysteinemia Medical History Asthma Medical History Right shoulder pain - [facility], Fyzical Ther apy Medical History CKD3b - Dr. Hicks Medical History Nonepileptic seizures - sees a therapist , doesn't know where Surgical History heart loop at [facility] 10/2020 Hospitalization History frontal infarct 2017 Hospitalization History elevated BP 2018 Hospitalization History [facility] CVA? 12/2018 Hospitalization History [facility] stroke? 07/2020 Goals Section No Information Health Concerns No Information MEDICAL EQUIPMENT No Information MENTAL STATUS No Information FUNCTIONAL STATUS No Information ASSESSMENTS Encounter Date Diagnosis Assessment Notes Treatment Notes Treatm ent Clinical Notes May, Annual physical exam (ICD-10 - Z00.00) Medical, surgical, and family histories were reviewed and updated. See preventative section. May, Type 2 diabetes mellitus with hyperglycemia (ICD -10 - E11.65) Managed by Dr. Navarro. Will check A1c and I completed her foot exam today. 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 Advised heart-healthy diet, sodium restriction. May, Mild intermittent asthma without complication (I CD-10 - J45.20) Denies any recent exacerbations. May, Hidradenitis suppurativa (ICD-10 - L73.2) Denies any recent lesions. May, History of CVA with residual deficit (ICD-10 - I 69.30) Follows with [facility] Neurology. May, Heterozygous MTHFR mutation C677T (ICD-10 - E72. 12) Found on previous workup for CVA. May, Heterozygous MTHFR mutation A0102C (ICD-10 - E72 .12) Found on previous workup for CVA. May, Legally blind (ICD-10 - H54.8) Related to prior stroke; she does not drive. May, History of non anemic vitamin B12 deficiency (IC D-10 - Z86.39) May, Other intervertebral disc de generation, lumbar region (ICD-10 - M51.36) Denies recent back pain. May, Chronic migraine without aur a, not intractable, without status migrainosus (ICD-10 - G43.709) Managed by her neurologist at [facility]; recents oral meds, Botox, and nerve blocks with good effect. May, Encounter for screening mamm ogram for malignant neoplasm of breast (ICD-10 - Z12.31) States she had a mammogram at [facility] in [place] within the last 4 months - will request records. May, Screening for colon cancer (ICD-10 - Z12.11) I recommended colorectal cancer screening and discussed options, including annual iFob, Cologuard every 3 years, or colonoscopy every 10 years. I discussed risks and benefits of each option. She elects Cologuard. May, Dyslipidemia (ICD-10 - E78.5) May, Chronic rhinitis (ICD-10 - J31.0) Symptoms are controlled. May, Pain in right shoulder (ICD-10 - M25.511) Recently received injection and continues with PT. May, Amenorrhea (ICD-10 - N91.2) I advised that risk of decreases with age but is still possible as she is still having regular periods and she and her are not using any form of contraception; she is requesting blood test today as she is unable to give a urine sample as she is legally blind. May, Stage 3b chronic kidney disease (ICD-10 - N18.32 ) Follows with Dr. Hicks. PLAN OF TREATMENT Medication Medication Name Sig Start Date Stop Date amLODIPine Besylate 5 MG 1 tablet Orally Once a day Systane Ultra 0.4-0.3 % 1 drop Ophthalmic as needed Lisinopril 5 MG 1 tablet Orally Once a day Lancets - as directed subcutaneously Three times d aily before meals. DX: Z79.1 May, Physical Therapy evaluate and treat as directed 1-3X/w [place], medically necessary to continue therapy; M25.511 Nov, Levocetirizine Dihydrochloride 5 MG TAKE ONE TABLET BY MOUTH @8P M Admelog SoloStar 100 UNIT/ML 6 units at breakfast and lunch and 8 units at dinner Subcutaneous Topamax 50 MG 2 tablets Orally bid Vitamin B-2 100 MG 1 tablet Orally Once a day Labetalol HCl 200 MG TAKE ONE TABLET BY MOUTH @8PM Atorvastatin Calcium 80 MG TAKE ONE TABLET BY MOUTH @8PM Aspirin Adult 325 MG 1 tablet Orally Once a day Ezetimibe 10 MG TAKE ONE TABLET BY MOUTH @8AM BD Pen Needle Wendy U/F 32G X 4 MM as directed subcutaneously fou r times daily Magnesium 400 MG 1 tablet Orally once a day Tresiba FlexTouch 200 UNIT/ML as directed Subcutaneous 70 units daily CareFine Pen [place] 32G X 4 MM as directed subcutaneously bid 0 4 Jan, 2019 glipiZIDE 5 MG 1 tablet with each meal MDD 2 Orally bid Treatment Notes Assessment Notes Clinical Notes Chronic rhinitis Symptoms are control led. Annual physical exam Medical, surgical, and family histories were reviewed and updated. See preventative section. Screening for colon cancer I recommended colorectal cancer screening and discussed options, including annual iFob, Cologuard every 3 years, or colonoscopy every 10 years. I discussed risks and benefits of each option. She elects Cologuard. Type 2 diabetes mellitus with hyperglycemia Managed by Dr. Navarro. Will check A1c and I completed her foot exam today. Amenorrhea I advised that risk of decreases with age but is still possible as she is still having regular periods and she and her are not using any form of contraception; she is requesting blood test today as she is unable to give a urine sample as she is legally blind. Essential hypertension Per JNC 8 guideli marry, goal BP < 140/90; is meeting goal on current regimen. Advised heart-healthy diet, sodium restriction. Pain in right shoulder Recently received injection and continues with PT. Mild intermittent asthma without complication Denies any recent exacerbations. Hidradenitis suppurativa Denies any rece nt lesions. Stage 3b chronic kidney disease Follows with Dr. Hicks. History of CVA with residual deficit Fol lows with [facility] Neurology. Heterozygous MTHFR mutation C677T Found on previous workup for CVA. Encounter for screening mammogram for malignant neoplasm of breast States she had a mammogram at [facility] in [place] within the last 4 months - will request records. Chronic migraine without aura, not intractable, without stat us migrainosus Managed by her neurologist at [facility]; recents oral meds, Botox, and nerve blocks with good effect. Heterozygous MTHFR mutation O9821F Found on previous workup for CVA. Legally blind Related to prior str poli; she does not drive. Other intervertebral disc degeneration, lumbar region Denies recent back pain. Future Test Test Name Order Date HCG SERUM QUALITATIVE [id number] Cologuard (Send Out Only) [id number] HEMOGLOBIN A1c [id number] Comprehensive Metabolic Profile (CMP) [id number] CBC with Differential [id number] VITAMIN B12 LEVEL [id number] LIPID PANEL (CARDIAC RISK) [id number] Next Appt Details 6 months Reason:F/u med prob Provider Name:Arleen Michelle, 2021-07-09 08:40:00 AM, [address] [place] [address], , [place], [address], Provider Name:Franniehugo Varghese, 2021-12-20 09:30:00 AM, [address] [facility], , [place], [address], Follow Up:6 monthsF/u med prob Insurance Providers Payer Name Payer Address Payer Phone Insured Name Patient Relati onship to Insured Coverage Start Date Coverage End Date [facility] [place] [address] [facility] [address] CHRISTIANO MARKHAM self
--- OUTSIDE RECORDS SUMMARY | 2021-07-06 15:36 | CCD ---
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 Active confirmed 23504506 Problem Stage 3b chronic kidney disease N18.32 Active confi rmed 884620682 Problem Dyslipidemia E78.5 Active confirmed 7128488 07 Problem Amenorrhea N91.2 Active confirmed 31002659 Problem Chronic rhinitis J31.0 Active confirmed 860 43067 ALLERGIES No Known Allergies ENCOUNTERS from 1975 to 2021-06-18 Encounter Location Date Provider Diagnosis [address] [phone] [place] [address] May, Frannie Varghese IMMUNIZATIONS Vaccine Route Administration Date Status Influenza 18 yrs & older Flublok IM Intramuscular Jun 18, 2020 Administered Influenza 18 yrs & older Flublok IM Intramuscular Jun 22, 2019 Administered Vitamin B-12 1000mcg/1mL Cyanocobalamin IM Intramuscular November 302018 Administered Pneumococcal Adult 0.5mL Pneumovax 23 IM Intramuscular Apr 25 019 Administered SOCIAL HISTORY Tobacco Use: Social History Observation Description Date Details (start date - stop date) Never Smoker Sex Assigned At : Social History Observation Description Sex Assigned At Unknown Education: Question Answer Notes Level of Education: College Audit Question Answer Notes Total Score: 0 Interpretation: Alcohol Education Language: Question Answer Notes Languages spoken: Icelandic Anglican: Question Answer Notes Anglican No methodist beliefs that would impact health care. Sexual [...] REASON FOR REFERRAL No Information VITAL SIGNS No information MEDICATIONS Medication SIG (Take, Route, Frequency, Duration) [...] Orally Once a day Active CareFine Pen [place] 32G X 4 MM as directed subcutaneously [...] Therapy evaluate and treat as directed 1-3X/w [place], medically necessary to continue therapy; M25.511 Nov, Act alexis PROCEDURES No Information RESULTS No Results REASON FOR VISIT test negative MEDICAL (GENERAL) HISTORY Type Description Date Medical History HTN Medical History HLD Medical History Recurrent CVA, 2017 and 12/2018 - Dr. Renita jarvis Medical History Migraines - gets nerve blocks and Botox injections; Dr. Mata Medical History Legally blind due to CVA - [place] [facility], [facility] Medical History IDDM - Dr. Navarro Medical History Seasonal allergies Medical History Follows with [facility]; has a he art [place] Medical History Heterozygous MTHFR mutations C677T and M8453F - previously saw Heme/Onc in [place] Medical History Hyperhomocysteinemia Medical History Asthma Medical History Right shoulder pain - [facility], Fyzical Ther apy Medical History CKD3b - Dr. Hicks Medical History Nonepileptic seizures - sees a therapist , doesn't know where Surgical History heart loop at [facility] 10/2020 Hospitalization History frontal infarct 2018 Hospitalization History elevated BP 2018 Hospitalization History [facility] CVA? 12/2018 Hospitalization History [facility] stroke? 07/2020 Goals Section No Information Health Concerns No Information MEDICAL EQUIPMENT No Information MENTAL STATUS No Information FUNCTIONAL STATUS No Information ASSESSMENTS No Information PLAN OF TREATMENT Medication Medication Name Sig Start Date Stop Date amLODIPine Besylate 5 MG 1 tablet Orally Once a day Systane Ultra 0.4-0.3 % 1 drop Ophthalmic as needed Lisinopril 5 MG 1 tablet Orally Once a day Lancets - as directed subcutaneously Three times d aily before meals. DX: Z79.1 May, Physical Therapy evaluate and treat as directed 1-3X/w [place], medically necessary to continue therapy; M25.511 Nov, [...] directed Subcutaneous 70 units daily CareFine Pen [place] 32G X 4 MM as directed subcutaneously bid 0 4 Jan, 2019 glipiZIDE 5 MG 1 tablet with each meal MDD 2 Orally bid Next Appt Details Provider Name:Arleen Michelle, 2021-07-09 08:40:00 AM, [address] [place] [address], , [place], [address], Provider Name:Frannie Varghese, 2021-12-20 09:30:00 AM, [address] [place] [address], , [place], [address], Insurance Providers Payer Name Payer Address Payer Phone Insured Name Patient Relati onship to Insured Coverage Start Date Coverage End Date [facility] [employer] [facility] [place] [address] [facility] [id number] CHRISTIANO MARKHAM self
--- OUTSIDE RECORDS SUMMARY | 2021-07-06 15:36 | CCD ---
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 Active confirmed 95257001 Problem Stage 3b chronic kidney disease N18.32 Active confi rmed 949288449 Problem Dyslipidemia E78.5 Active confirmed 6499379 07 Problem Amenorrhea N91.2 Active confirmed 14466928 Problem Chronic rhinitis J31.0 Active confirmed 860 56076 ALLERGIES No Known Allergies ENCOUNTERS from 1973 to 2021-06-18 Encounter Location Date Provider Diagnosis [address] [phone] [place] [address] May, Frannie Varghese Chronic migraine without aur a, not intractable, without status migrainosus G43.709 IMMUNIZATIONS Vaccine Route Administration Date Status Influenza [...] Education Language: Question Answer Notes Languages spoken: Palestinian Mu-Ism: Question Answer Notes Mu-Ism No religion beliefs that would impact health care. Sexual [...] you a: never smoker REASON FOR REFERRAL from 1973 to 2021-06-18 Reason Already established patient needs ongoing care; new referral placed for insurance requirement Diagnosis 1 Chronic migraine without aur a, not intractable, without status migrainosus (G43.709) Referral Organization [facility] Aric Referring Provider First Name Frannie Referring Provider Last Name Halima Referring Provider Specialty Family Medicine Referred Provider Yakelin Mata Referred Provider Specialty Neurology Referral Priority Routine General Notes Frannie Varghese MD 12:22:49 PM > Needs [facility] Fartun Butt 06/13/2021 12:30:13 PM > request for Suzie Valladares 06/18/2021 8:51:10 AM > [facility] referral for Yakelin Sepulveda done ID# [id number] Hernandez 06/18/2021 10:07:50 AM > referral Fartun Cook 06/18/2021 10:08:03 AM > patient is already established with this office VITAL SIGNS No information MEDICATIONS Medication SIG [...] Orally Once a day Active CareFine Pen Dennis 32G X 4 MM as directed subcutaneously [...] Therapy evaluate and treat as directed 1-3X/w [place], medically necessary to continue therapy; M25.511 Nov, Act alexis PROCEDURES No Information RESULTS No Results REASON FOR VISIT [facility] referral MEDICAL (GENERAL) HISTORY Type Description Date Medical History HTN Medical History HLD Medical History Recurrent CVA, 2017 and 12/2018 - Dr. Renita jarvis Medical History Migraines - gets nerve blocks and Botox injections; Dr. Mata Medical History Legally blind due to CVA - [place] [facility] Medical History IDDM - Dr. Navarro Medical History Seasonal allergies Medical History Follows with [facility] Deep; has a he art loop Medical History Heterozygous MTHFR mutations C677T and G1131N - previously saw Heme/Onc in [place] Medical History Hyperhomocysteinemia Medical History Asthma Medical History Right shoulder pain - [facility], Fyzical Ther apy Medical History CKD3b - Dr. Hicks Medical History Nonepileptic seizures - sees a therapist , doesn't know where Surgical History heart loop at [facility] 10/2020 Hospitalization History frontal infarct 2017 Hospitalization History elevated BP 2018 Hospitalization History [facility] CVA? 12/2018 Hospitalization History [facility] stroke? 07/2020 Goals Section No Information Health Concerns No Information MEDICAL EQUIPMENT No Information MENTAL STATUS No Information FUNCTIONAL STATUS No Information ASSESSMENTS Encounter Date Diagnosis Assessment Notes Treatment Notes Treatm ent Clinical Notes May, Chronic migraine without aur a, not intractable, without status migrainosus (ICD-10 - G43.709) PLAN OF TREATMENT Medication Medication Name Sig Start Date Stop Date amLODIPine Besylate 5 MG 1 tablet Orally Once a day Systane Ultra 0.4-0.3 % 1 drop Ophthalmic as needed Lisinopril 5 MG 1 tablet Orally Once a day Lancets - as directed subcutaneously Three times d aily before meals. DX: Z79.1 May, Physical Therapy evaluate and treat as directed 1-3X/w [place], medically necessary to continue therapy; M25.511 Nov, [...] directed Subcutaneous 70 units daily CareFine Pen Dennis 32G X 4 MM as directed subcutaneously bid 0 4 Jan, 2019 glipiZIDE 5 MG 1 tablet with each meal MDD 2 Orally bid Referrals Referral Date Details Already established patient needs ongoing care; new referral placed for insurance requirement, Yakelin Mata Next Appt Details Provider Name:Arleen Michelle, 2021-07-09 08:40:00 AM, [address] [place] [address], , [place], [address], Provider Name:Frannie Varghese, 2021-12-20 09:30:00 AM, [address] [place] [address], , [place], [address], Insurance Providers Payer Name Payer Address Payer Phone Insured Name Patient Relati onship to Insured Coverage Start Date Coverage End Date [facility] COMMUNITY PLAN [facility] [address] [facility] [id number] CHRISTIANO MARKHAM self
--- OUTSIDE RECORDS SUMMARY | 2021-07-06 15:36 | CCD | Summary of Care ---
Author Author [facility] Organization [facility] Address Unknown Phone Unavailable Care Team Providers Care Leasing Agent Name Role Phone Frannie Varghese MD PCP Reason for Visit * Procedure/Treatment (Routine) Referred By Contact Referred To Contact Status Reason Specialty Diagnoses / Procedures Yakelin Mata MD [address] [place] [address] Floor [address] [place] [phone] Email: [email or web address] [address] [place] [phone] Authorized Specialty Services Neurology / Diagnoses Required Infusion Therapy Status migrainosus P rocedures CT INJECTION,ONABOTUL INUMTOXINA Encounter Details Care Team Description Date Type Department Yakelin Mata MD [address] [place] [address] [place] [phone] Chronic migraine (Primary Dx) 05/09/2021 Procedure visit [facility] Neu[facility] at [address] [place] [phone] Allergies Comments Active Allergy Reactions Severity Noted Date Adhesive Tape Rash Low 08/02/2020 Bee Venom Anaphylaxis High 09/07/2020 Making her "loopy" Abhonaixrw-Wobx-Wecwupdu Other (See 04/15/2018 Comments) documented as of this encounter (statuses as of 05/09/2021) Medications End Date Status Medication Sig Dispensed Refills Start Date Active atorvastatin (LIPITOR) 80 Take 1 tablet 30 tablet 11 MG tablet by mouth 8 every evening Active labetalol (NORMODYNE) 200 Take 1 tablet 60 tablet 5 MG tablet by mouth 8 every 12 (twelve) hours Additional Information Patient taking differently: 200 mg Oral Every evening, Informant: Pharmacy, Reported on 01/31/2021 Active ezetimibe (ZETIA) 10 MG Take 10 mg by 0 tablet mouth daily Active meclizine (ANTIVERT) 25 Take 25 mg by 0 MG tablet mouth Two Times Daily Active ketorolac (ACULAR) 0.5 % Place 1 drop 0 ophthalmic solution into both eyes Four times daily as needed Active Blood Glucose Monitoring Use as 1 kit 0 0 Suppl (PRODIGY VOICE directed. To 9 BLOOD GLUCOSE) w/Device test blood KITIndications: Type 2 glucose 4x diabetes mellitus with daily. hyperglycemia, with Dx:E11.65 long-term current use of insulin Active PRODIGY LANCETS 28G Use as 150 each MISCIndications: Type 2 directed. To 9 diabetes mellitus with test blood hyperglycemia, with glucose 4x long-term current use of daily. insulin Dx:E11.65 Active levalbuterol (XOPENEX) Take 1 ampule 0 1.25 MG/3ML nebulizer by solution nebulization as needed for Wheezing Active folic acid (FOLVITE) 1 MG Take 1 mg by 3 / tablet mouth daily 9 Active ondansetron (ZOFRAN-ODT) dissolve ONE 5 11/18 4 MG disintegrating TABLET BY 9 tablet MOUTH EVERY FOUR HOURS NEEDED FOR NAUSEA DIRECTED Active Polyethyl Glycol-Propyl Place 1 drop 0 Glycol (SYSTANE) 0.4-0.3 into both % SOLN eyes Four times daily as needed Active TRESIBA FLEXTOUCH 200 Inject 90 04/25/20 1 UNIT/ML concentrated Units into 9 injection the skin daily Active fluticasone (FLONASE) 50 1 spray by 4 04/07 MCG/ACT nasal spray Nasal route 9 as needed Active levocetirizine (XYZAL) 5 Take 5 mg by 5 03/28 MG tablet mouth daily 9 Active aspirin 325 MG tablet Take 325 mg 0 by mouth daily Active glipiZIDE 5 MG Oral Take 5 mg by 0 Tablet (GLUCOTROL) mouth Two times daily before breakfast and dinner Active Aspercreme Max Roll-On 16 Apply 1 118 mL 0 % External Liquid Application 0 (Menthol (Topical topically Analgesic))Indications: Four times Chronic migraine daily as needed Active Admelog SoloStar 100 Inject 1 pen 0 UNIT/ML Subcutaneous into the skin 0 Solution Pen-injector Three times daily before meals 8U breakfast, 10U at lunch, 10 at dinner 09/04/2021 Active Topiramate 50 MG Oral Take 2 360 tablet 3 Tablet tablets by 1 (TOPAMAX)Indications: mouth Two Chronic migraine Times Daily Active amLODIPine Besylate 2.5 Take 5 mg by 0 MG Oral Tablet (NORVASC) mouth daily 1 Active Lisinopril 5 MG Oral Take 5 mg by 0 Tablet (PRINIVIL,ZESTRIL) mouth daily 1 Active Ubrogepant 50 MG Oral Take 50 mg by 10 tablet 11 TabletIndications: mouth Two 1 Migraine with aura and times daily with status migrainosus, as needed not intractable, Take one for Intractable migraine acute without aura and without headache, can status migrainosus repeat after 2 hours if needed. Active Magnesium Oxide 400 MG Take 1 tablet 180 tablet 3 0 Oral Tablet by mouth 1 (MAG-OX)Indications: Three times Migraine with aura and daily with status migrainosus, not intractable Active B-2 100 MG Oral Tablet Take 2 180 tablet 3 (RIBOFLAVIN)Indications: tablets by 1 Migraine with aura and mouth daily with status migrainosus, not intractable 03/10/2022 Active Gabapentin 300 MG Oral Take 3 270 capsule 3 Capsule capsules by 1 (Neurontin)Indications: mouth nightly Lumbar radiculopathy Active Cyclobenzaprine HCl 5 MG Take 5 mg by 0 Oral Tablet (FLEXERIL) mouth Three times daily as needed for Muscle spasms Status Hospital, Clinic, or Ordered Dose Route Frequency Start End Date Other Facility Date Administered Medication Ended onabotulinumtoxin type A 185 Units IM Once 05/09/20 (BOTOX) injection 185 21 1 UnitsIndications: Chronic migraine documented as of this encounter (statuses as of 05/09/2021) Active Problems Problem Noted Date Leg weakness, bilateral 04/06/2021 Status post placement of implantable loop recorder 0 02/06/2021 Aortic atherosclerosis 02/06/2021 Cryptogenic stroke 09/25/2020 Magnetic resonance imaging of brain abnormal 020 Functional neurological symptom disorder with mixed s ymptoms 04/22/2020 Intractable migraine without aura and without status migrainosus 02/09/2020 Abnormal brain MRI 01/14/2019 Heterozygous MTHFR mutation [id number] 12/27/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 12/27/2018 Leukocytosis 12/27/2018 Hyperhomocysteinemia 12/27/2018 Long-term insulin use 11/26/2018 Last Assessment & Plan: Formatting of this note is different fr om the original. Insulin Injection Record Shawna Sherman 11/26/2018 Meal Time Insulin Type: admelog Blood Glucose (Mg/dl) Breakfast Lunch Supper Day Snack Night Snack Correction for High Glucose if not Eating Meal Correction for High Glucose at Bedtime Less than 70 Treat low blood sugar with 15 grams carbohydrate (example: 4 ounces juice or 4 glucose t ablets), recheck in 15 minutes and repeat treatm ent until above 70, then take insulin in 70 - 90 row. 70 - 90 0 0 0 91 - 130 0 0 0 131 - 150 0 0 0 151 - 200 2 2 2 201 - 250 4 4 4 251 - 300 6 6 6 301 - 350 8 8 8 351 - 400 10 10 10 401 - 450 10 10 10 Over 450 10 10 10 Do not give mealtime or correction insu toño more frequently than every 3 hours. Long-acting Insulin Toujeo; 47 units B reakfast. Cut down Toujeo by 2 units if BG < 90 for 2-3 consecutive da ys Metformin 1000 mg twice daily with meal s. large subacute infarct of the right occipital lobe. 04/15/2018 Overview: Formatting of this note might be differ ent from the original. - Neurology consulted. Hemianopia, homonymous, left 04/15/2018 Chronic migraine 04/15/2018 Previous section 04/13/2012 Overview: Formatting of this note might be differ ent from the original. Three times Class 2 obesity in adult 04/13/2012 Essential hypertension Asthma Type 2 diabetes mellitus with diabetic nephropathy, with long-term current use of insulin Overview: Formatting of this note might be differ ent from the original. 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 documented as of this encounter Last Filed Vital Signs Not on filedocumented in this encounter Progress Notes * Yakelin Mata MD - 05/09/2021 1:00 PM EDT [facility] Date Of Service: 05/09/2021 Diagnosis: Chronic Migraine History: Shawna is a 45 y.o. year old Female with chronic migraine headaches who has failed multiple medical interventions. Headaches are still doing well on botox. Patient reports that overall her headac he symptoms are well controlled with a combination of Botox therapy, B2 200 mg d aily, topiramate 100 mg twice a day and magnesium 400 mg 3 times a day. For iwona akthrough pain she is able to use Ubrelvy. Medications: Outpatient Medications Marked as Taking for the 05/09/21 encounter (Procedure visi t) with Yakelin Mata MD Medication Sig Dispense Refill Extra Info Admelog SoloStar 100 UNIT/ML Subcutaneous Solution Pen-injector Inject 1 pen into the skin Three times daily before meals 8U breakfast, 10U at lunch, 10 at dinner 1 amLODIPine Besylate 2.5 MG Oral Tablet (NORVASC) Take 5 mg by mouth daily 1 Aspercreme Max Roll-On 16 % External Liquid (Menthol (Topical Analgesic)) Apply 1 Application topically Four times daily as needed 118 mL 0 1 aspirin 325 MG tablet Take 325 mg by mouth daily 1 B-2 100 MG Oral Tablet (RIBOFLAVIN) Take 2 tablets by mouth daily 180 tab let 3 1 Blood Glucose Monitoring Suppl ([employer] VOICE BLOOD GLUCOSE) w/Device KIT Use as directed. To test blood glucose 4x daily. Dx:E11.65 1 kit 0 1 Cyclobenzaprine HCl 5 MG Oral Tablet (FLEXERIL) Take 5 mg by mouth Three times daily as needed for Muscle spasms 1 ezetimibe (ZETIA) 10 MG tablet Take 10 mg by mouth daily 1 fluticasone (FLONASE) 50 MCG/ACT nasal spray 1 spray by Nasal route as ne eded 4 1 folic acid (FOLVITE) 1 MG tablet Take 1 mg by mouth daily 3 1 Gabapentin 300 MG Oral Capsule (Neurontin) Take 3 capsules by mouth night ly 270 capsule 3 1 glipiZIDE 5 MG Oral Tablet (GLUCOTROL) Take 5 mg by mouth Two times daily before breakfast and dinner 1 ketorolac (ACULAR) 0.5 % ophthalmic solution Place 1 drop into both eyes Four times daily as needed 1 levalbuterol (XOPENEX) 1.25 MG/3ML nebulizer solution Take 1 ampule by ne bulization as needed for Wheezing 1 levocetirizine (XYZAL) 5 MG tablet Take 5 mg by mouth daily 5 1 Lisinopril 5 MG Oral Tablet (PRINIVIL,ZESTRIL) Take 5 mg by mouth daily 1 Magnesium Oxide 400 MG Oral Tablet (MAG-OX) Take 1 tablet by mouth Three times daily 180 tablet 3 1 meclizine (ANTIVERT) 25 MG tablet Take 25 mg by mouth Two Times Daily 1 ondansetron (ZOFRAN-ODT) 4 MG disintegrating tablet dissolve ONE TABLET B Y MOUTH EVERY FOUR HOURS NEEDED FOR NAUSEA DIRECTED 5 1 Polyethyl Glycol-Propyl Glycol (SYSTANE) 0.4-0.3 % SOLN Place 1 drop into both eyes Four times daily as needed 1 [employer] LANCETS 28G [facility] Use as directed. To test blood glucose 4x daily. Dx:E11.65 150 each 5 1 Topiramate 50 MG Oral Tablet (TOPAMAX) Take 2 tablets by mouth Two Times Daily 360 tablet 3 1 TRESIBA FLEXTOUCH 200 UNIT/ML concentrated injection Inject 90 Units into the skin daily 5 1 Ubrogepant 50 MG Oral Tablet Take 50 mg by mouth Two times daily as neede d Take one for acute headache, can repeat after 2 hours if needed. 10 tablet 11 1 Current Facility-Administered Medications for the 05/09/21 encounter (Procedure vi sit) with Yakelin Mata MD Medication Dose Route Frequency Provider Last Rate Last Admin Extra Info [COMPLETED] onabotulinumtoxin type A (BOTOX) injection 185 Units 185 Uni ts Intramuscular Once Yakelin Mata MD 185 Units at 05/09/21 1310 1 Risk of Botox therapy were explained, including neck pain and/or weakness,headac he, eye lid droopiness, facial muscle weakness, and hypersensitivity. Patient u nderstands risks and wishes to proceed. The patient was advised that Botox Injec tion may not be effective in relieving the chronic headaches. The patient has f gurvinder multiple interventions, so I agree that Botox is the most appropriate fidel tment. Risk of Botox therapy were explained, including neck pain and/or weakness,headac he, eye lid droopiness, facial muscle weakness, and hypersensitivity. Patient u nderstands risks and wishes to proceed. The patient was advised that Botox Injec tion may not be effective in relieving the chronic headaches. The patient has f gurvinder multiple interventions, so I agree that Botox is the most appropriate fidel tment. Botulinum toxin concentrations, 5 units per .1 cc. Under sterile and controlled conditions using aseptic technique, botulinum toxin type A was administered. A 30 gauge needle was used. The following muscles we re injected. 1. Right Frontalis, 2 sites, 7.5 units one site and 7.5 units the second for a t otal of 15 units. 2. Left Frontalis, 2 sites, 7.5 units one site and 7.5 units the second for a t otal of 15 units. 3. Right Solar Installation Technician, 1 site, 5 units per site for a total of 5 units. 4. Left Solar Installation Technician, 1 site, 5 units per site for a total of 5 units. 5. Procerus, 1 site, 5 units per site for a total of 5 units. 6. Right Temporalis, 4 sites, 5 units per site except for 1 of 10 units for a to christelle of 25 units. 7. Left Temporalis, 4 sites, 5 units per site except for 1 of 10 units for a tot al of 25 units. 8. Right Occipitalis, 3 sites, 5 units per site for a total of 15 units. 9. Left Occipitalis, 3 sites, 5 units per site for a total of 15 units. 10. Right Cervical Paraspinal, 2 sites, 5 units per site for a total of 10 units . 11. Left Cervical Paraspinal, 2 sites, 5 units per site for a total of 10 units. 12. Right Trapezius, 3 sites, 5 units per site except for 1 of 10 units for a to christelle of 20 units. 13. Left Trapezius, 3 sites, 5 units per site except for 1 of 10 units for a tot al of 20 units. In all, 185 units of botulinum toxin were injected and 15 units were discarded. The patient tolerated the procedure without adverse side effects. Post inject ion instructions are given. She will return for a reevaluation and treatment in 3 months. documented in this encounter Plan of Treatment Care Team Description Date Type Specialty Yakelin Mata MD [address] [place] [phone] 06/20/2021 Office Visit Neurology Tamela Rey MD [address] [place] [address] [phone] 06/27/2021 Procedure visit Infusion Therapy Yakelin Mata MD [address] Floor [address] [place] [phone] [phone] 08/08/2021 Procedure visit Infusion Therapy Mali Del Rio MD [address] [place] [address] [phone] 03/07/2022 Office Visit Cardiology Health Maintenance Due Date Last Done Comments MMR Vaccines (1 of - 1974 Standard series) Varicella Vaccines (1 of 1974 2 - 2-dose childhood series) Pneumococcal Vaccine: 65+ 1979 Years (1 of 2 - PPSV23) Pneumococcal Vaccine: 1979 Pediatrics (0 to 5 Years) and At-Risk Patients (6 to 64 Years) (1 of 2 - PPSV23) DTaP,Tdap,and Td Vaccines 1980 (1 - Tdap) Diabetic Foot Exam 1991 Dilated Retinal Exam 1991 Hepatitis B Vaccines (1 1992 of 3 - Risk 3-dose series) Urine Microalbumin 04/28/2012 04/28/2011 Cervical Cancer Screening 06/25/2015 06/25/2010, 5 years 12/06/2009 Influenza Vaccine 05/31/2021 06/18/2020, 06/22/2019, 06/19/2018 Hemoglobin A1c 10/07/2021 04/06/2021, 04/06/2021, 07/19/2020, Additional history exists Lipid Disorder Screening 04/06/2022 04/06/2021, 04/06/2021, 07/19/2020, Additional history exists HIV Screening Completed 03/30/2012 HIB Vaccines Aged Out No longer eligible based on patient's age to complete this topic Hepatitis A Vaccines Aged Out No longer eligibl e based on patient's age to complete this topic IPV Vaccines Aged Out No longer eligible based on patient's age to complete this topic documented as of this encounter Implants Device Identifier Shelf Expiration Date Model / Serial / L ot Implanted Type Area Manufactur er 12/14/2021 [id number] / [id number] / Recorder Loop Reveal [employer] - Loop N/A: Chest [employer] [id number] Recorder Wall CARDIAC Implanted: Qty: 1 on 09/25/2020 by Mali Del Rio MD at [facility] documented as of this encounter Results Not on filedocumented in this encounter Visit Diagnoses Diagnosis Chronic migraine - Primary Chronic migraine without aura, without mention of intractable migraine without mention of status migrainosus documented in this encounter Administered Medications Action Date Dose Rate Site Medication Order MAR Action 05/09/2021 1:10 PM EDT 185 Units onabotulinumtoxin type A (BOTOX) Given injection 185 Units 185 Units, Intramuscular, Once, On Jasmine 05/09/21 at 1315, For 1 dose documented in this encounter
--- OUTSIDE RECORDS SUMMARY | 2021-07-06 15:36 | CCD | Continuity of Care Document ---
Author Author Shawna CRENSHAW MD Organization Unknown Address [address] [place] [address], [address] [place] [address] Phone [phone] Care Team Providers Care Civil Engineering Specialist Name Role Phone Vlad Prabhakar MD AUTM [phone] Tiara Hicks MD AUTM [phone] Frannie Varghese MD AUTM [phone] Problems Active Problems Provider Date Type 2 [...] 11.4 Procedures Date Code Description Status 06/10/2021 13682 Office/Outpatient Established [facility] 40-54 Min Completed 01/03/2021 13310 Office/Outpatient Established [facility] 40-54 Min Completed 03/2020 [id number] Diabetic Foot Exam Completed Medical Devices Description No Information Available Encounters Type Date Location Provider Dx Diagnosis Office Visit 06/10/2021 3:30p DR. Pastora Crenshaw MD E 11.65 Type 2 diabetes mellitus with hyperglycemia E11.22 Type 2 diabetes mellitus w d iabetic chronic kidney disease N18.32 Chronic kidney disease, stag e 3b Office Visit 01/03/2021 2:30p DR. Pastora Bernabe, [...] diabetes mellitus with hy perglycemia Cheyenne Bernabe, EXHIBITIONS AND COLLECTIONS MANAGER 01/03/2021 E11.22 Type 2 diabetes mellitus with di abetic chronic kidney disease Cheyenne Bernabe, EXHIBITIONS AND COLLECTIONS MANAGER 01/03/2021 N18.32 Chronic kidney disease, stage 3b Cheyenne Bernabe, EXHIBITIONS AND COLLECTIONS MANAGER 12/20/2020 E11.65 Type 2 diabetes mellitus with [...] We'll give patient a sample of her Kiddies Smilz Pedro to device.If she uses her phone as the scanning device her phone has some type of functionality were able actually read things to her, since she is blind.She will try this for 2 weeks and let us know. Advised to set the low alarm at 80 in the high alarm at 250. is a computer assembler. He says he will have no problems setting this up. * Follow up:* 3 months * E11.22 Type 2 diabetes mellitus with diabetic chronic kidney disease* Comments:* Following with nephrology. Stopped Metformin Nephrology note 03/2021, she [facility] a [facility]pile[facility] EGFR = 35Hemoglobin and hematocrit = 11/36Microalbumin ratio = 10.4 patient is getting IV iron is needed. * N18.32 Chronic kidney disease, stage 3b* Comments:* EGFR = 35, summer 2020 Functional Status Description No Information Available Mental Status Description No Information Available Referrals Refer to Reason for Referral Status Appt Date Pastora Crenshaw MD dm 2 Created [address] [facility], [address] [place] [address] [phone]
--- OUTSIDE RECORDS SUMMARY | 2021-07-06 15:36 | CCD | Continuity of Care Document ---
Author Author Shawna ANDREA P.AGuillermo Organization Unknown Address [address] [place] [address], [address] [address] Phone [phone] Care Team Providers Care Zipper Setter Name Role Phone Frannie Varghese MD AUTM [phone] Problems Active Problems Provider Date Essential hypertension Dion Joy Onset: Pure hypercholesterolemia Dion Joy Onset: 02/23/2020 Type 2 diabetes mellitus Dion Joy Onset: 0 12/24/2020 Social History Type Date Description Comments Sex Unknown ETOH Use Denies alcohol use Tobacco Use Start: Unknown Denies Smoking Allergies, Adverse Reactions, Alerts Description No Known Drug Allergies Medications Active Medications SIG Qnty Indications Ordering Provide r Date Topiramate 25mg Tablets Unknown Ketorolac Tromethamine 0.5% Solution Unknown Systane Ultra Preservative Free 0.4-0.3% Solution Unknown Ondansetron HCL 4mg Tablets Unknown Magnesium Oxide 400mg Tablets Unknown Levocetirizine Dihydrochloride 5mg Tablets Unknown Meclizine HCL 25mg Tablets Unknown Ezetimibe 10mg Tablets Unknown Ferrous Fumarate 324(106Fe) mg Tab lets 1 by mouth at dinner Unknown Topiramate 50mg Tablets Unknown Vitamin B12 1000mcg Tablets ER 1 by mouth every day Unknown Metformin HCL 500mg Tablets Unknown Tresiba 100Unit/ML Solution inject 25 units once daily mdd 25 units Unknown Lipitor 80mg Tablets 1 by mouth every night at bedtime Unknown Aspirin 325mg Tablets 1 by mouth every day Unknown Folic Acid 1mg Tablets Unknown Labetalol HCL 200mg Tablets 1 by mouth twice a day Unknown Lisinopril 10mg Tablets Unknown Glipizide 5mg Tablets Unknown Immunizations Description No Information Available Vital Signs Date Vital Result Comment 09/14/2020 1:45pm Body Temperature 96.8 F 02/23/2020 2:39pm Body Temperature 96.3 F Height 61 inches 5'1" Weight 230.00 lb BMI (Body Mass Index) 43.5 kg/m2 Results Description No Information Available Procedures Date Code Description Status 05/09/2021 04882 Office/Outpatient Established Mo d MDM 30-39 Min Completed 03/20/2021 07828 Office/Outpatient Established Lo w MDM 20-29 Min Completed 02/04/2021 46965 Office/Outpatient Established Lo w MDM 20-29 Min Completed 12/24/2020 21635 Office/Outpatient Established Lo w MDM 20-29 Min Completed 12/24/2020 86339 Inject/Drain Joint/Bursa Major C ompleted Medical Devices Description No Information Available Encounters Type Date Location Provider Dx Diagnosis Office Visit 05/09/2021 9:15a Chad Andrea, P.A. S46.011D Strain of musc/tend the rotator cuff of right shoulder, subs S46.012D Strain of musc/tend the rota tor cuff of left shoulder, subs M54.2 Cervicalgia M51.36 Other intervertebral disc de generation, lumbar region M43.16 Spondylolisthesis, lumbar re gion Office Visit 03/20/2021 9:15a Chad Andrea, P.A. S46.011D Strain of musc/tend the rotator cuff of right shoulder, subs S46.012D Strain of musc/tend the rota tor cuff of left shoulder, subs M54.2 Cervicalgia Office Visit 02/04/2021 9:15a Chad Andrea, P.A. S46.011D Strain of musc/tend the rotator cuff of right shoulder, subs S46.012D Strain of musc/tend the rota tor cuff of left shoulder, subs M54.2 Cervicalgia Office Visit 12/24/2020 4:00p MizeRosalina CalderónAGuillermo S46.011D Strain of musc/tend the rotator cuff of right shoulder, subs S46.012D Strain of musc/tend the rota tor cuff of left shoulder, subs M54.2 Cervicalgia Assessments Date Code Description Provider 05/09/2021 S46.011D Strain of muscle(s) and tendon(s) of the rotator cuff of right shoulder, subsequent encounter Elgin Andrea P.A. 05/09/2021 S46.012D Strain of muscle(s) and tendon(s) of the rotator cuff of left shoulder, subsequent encounter Elgin Andrea P.A. 05/09/2021 M54.2 Cervicalgia lEgin pedro, P.AGuillermo 05/09/2021 M51.36 Other intervertebral disc degene ration, lumbar region Elgin Andrea, P.A. 05/09/2021 M43.16 Spondylolisthesis, lumbar region Elgin Andrea, P.A. 03/20/2021 S46.011D Strain of muscle(s) and tendon(s) of the rotator cuff of right shoulder, subsequent encounter Elgin Andrea P.A. 03/20/2021 S46.012D Strain of muscle(s) and tendon(s) of the rotator cuff of left shoulder, subsequent encounter Elgin Andrea P.A. 03/20/2021 M54.2 Cervicalgia Elgin pedro, P.A. 02/04/2021 S46.011D Strain of muscle(s) and tendon(s) of the rotator cuff of right shoulder, subsequent encounter Elgin Andrea P.A. 02/04/2021 S46.012D Strain of muscle(s) and tendon(s) of the rotator cuff of left shoulder, subsequent encounter Elgin Andrea P.AGuillermo 02/04/2021 M54.2 Cervicalgia Dion Ashby 12/24/2020 S46.011D Strain of muscle(s) and tendon(s) of the rotator cuff of right shoulder, subsequent encounter Dion Joy 12/24/2020 S46.012D Strain of muscle(s) and tendon(s) of the rotator cuff of left shoulder, subsequent encounter Dion Joy 12/24/2020 M54.2 Cervicalgia Dion Ashby Plan of Treatment 05/09/2021 - Dion Joy* S46.011D Strain of muscle(s) and tendon(s) of the rotator cuff of right shoulder, subsequent encounter* Follow up:* 6-[address] [facility] back/matt shoulder/neck re-check * S46.012D Strain of muscle(s) and tendon(s) of the rotator cuff of left shoulder, subsequent encounter * M54.2 Cervicalgia * M51.36 Other intervertebral disc degeneration, lumbar region * M43.16 Spondylolisthesis, lumbar region Functional Status Description No Information Available Mental Status Description No Information Available Referrals Refer to Dr Reason for Referral Status Appt Date Elgin Andrea PA FLUORO INJ NO AUTH REQUIRED PER [facility] FOR FLUOROSCOPIC INJECTION TO RIGHT SHOULDER ([id number] [phone]) TO HARMEET Zepeda DG Created [address] [place] [address] [phone] Elgin Andrea PA Physical Therapy Matt Shoulde [place] [id number],patient [facility],passed to chart. sw. Created [facility] [place] [address] [phone] Elgin Andrea PA M54.5 LOW BACK PAIN Created [facility] [place] [address] [phone] Elgin Andrea PA AUTH FOR PT MATT SHOULDERS [id number]. [place].PASSED TO CHART.HW Created [facility] [place] [address] [phone] Elgin Andrea PA O/V FOR MATT SHOULDER Created [address] [facility] [place] [id number] [phone]
--- OUTSIDE RECORDS SUMMARY | 2021-07-06 15:36 | CCD | Continuity of Care Document ---
Author Author Shawna ANDREA P.AGuillermo Organization Unknown Address [address] [place] [address] Phone [phone] Care Team Providers Care Stemhole Borer And Topper Name Role Phone Frannie Varghese MD AUTM [phone] Chico Robles MD AUTM [phone] Problems Active Problems Provider Date Essential hypertension Dion Joy Onset: Pure hypercholesterolemia Dion Joy Onset: 02/23/2020 Type 2 diabetes mellitus Dion Joy Onset: 0 12/24/2020 Social History Type Date Description Comments Sex Unknown ETOH Use Denies alcohol use Tobacco Use Start: Unknown Denies Smoking Allergies and adverse reactions Description No Known Drug Allergies Medications Active [...] Available Procedures Date Code Description Status 05/09/2021 29433 Office/Outpatient Established Mo d MDM 30-39 Min Completed 03/20/2021 86999 Office/Outpatient Established Lo w MDM 20-29 Min Completed 02/04/2021 04915 Office/Outpatient Established Lo w MDM 20-29 Min Completed Medical Devices Description No Information Available Encounters Type Date Location Provider Dx Diagnosis Office Visit 05/09/2021 9:15a [place] Andrea, P.A. S46.011D Strain of musc/tend the rotator cuff of right shoulder, subs S46.012D Strain of musc/tend the rota tor cuff of left shoulder, subs M54.2 Cervicalgia M51.36 Other intervertebral disc de generation, lumbar region M43.16 Spondylolisthesis, lumbar re gion Office Visit 03/20/2021 9:15a [place], P.A. S46.011D Strain of musc/tend the rotator cuff of right shoulder, subs S46.012D Strain of musc/tend the rota tor cuff of left shoulder, subs M54.2 Cervicalgia Office Visit 02/04/2021 9:15a [place], P.A. S46.011D Strain of musc/tend the rotator cuff of right shoulder, subs S46.012D Strain of musc/tend the rota tor cuff of left shoulder, subs M54.2 Cervicalgia Assessments Date Code Description Provider 07/05/2021 S46.011D Strain of muscle(s) and tendon(s) of the rotator cuff of right shoulder, subsequent encounter Elgin Andrea, P.A. 07/05/2021 S46.012D Strain of muscle(s) and tendon(s) of the rotator cuff of left shoulder, subsequent encounter Elgin Andrea, P.A. 07/05/2021 M54.2 Cervicalgia Elgin pedro, P.A. 07/05/2021 M51.36 Other intervertebral disc degene ration, lumbar region Elgin Andrea, P.A. 07/05/2021 M43.16 Spondylolisthesis, lumbar region Elgin Andrea, P.A. 05/09/2021 S46.011D Strain of muscle(s) and tendon(s) of the rotator cuff of right shoulder, subsequent encounter Elgin Andrea, P.A. 05/09/2021 S46.012D Strain of muscle(s) and tendon(s) of the rotator cuff of left shoulder, subsequent encounter Elgin Andrea, P.A. 05/09/2021 M54.2 Cervicalgia Elgin pedro, P.A. 05/09/2021 M51.36 Other intervertebral disc degene ration, lumbar region Elgin Andrea, P.A. 05/09/2021 M43.16 Spondylolisthesis, lumbar region Elgin Andrea, P.A. 03/20/2021 S46.011D Strain of muscle(s) and tendon(s) of the rotator cuff of right shoulder, subsequent encounter Elgin Andrea, P.A. 03/20/2021 S46.012D Strain of muscle(s) and tendon(s) of the rotator cuff of left shoulder, subsequent encounter Elgin Andrea, P.A. 03/20/2021 M54.2 Cervicalgia Elgin pedro, P.A. 02/04/2021 S46.011D Strain of muscle(s) and tendon(s) of the rotator cuff of right shoulder, subsequent encounter Dion Joy 02/04/2021 S46.012D Strain of muscle(s) and tendon(s) of the rotator cuff of left shoulder, subsequent encounter Dion Joy 02/04/2021 M54.2 Cervicalgia Dion Ashby Plan of Treatment 07/05/2021 - Dion Joy* S46.011D Strain of muscle(s) and tendon(s) of the rotator cuff of right shoulder, subsequent encounter* Follow up:* 6-8 weeks for MATT shoulder/back recheck with MKM * S46.012D Strain of muscle(s) and tendon(s) of the rotator cuff of left shoulder, subsequent encounter * M54.2 Cervicalgia * M51.36 Other intervertebral disc degeneration, lumbar region * M43.16 Spondylolisthesis, lumbar region Functional Status Description No Information Available Mental Status Description No Information Available Referrals Refer to Dr Reason for Referral Status Appt Date Chico Robles MD OV S46.011D STRAIN OF MUSC LES AND TENDONS OF THE ROTATOR CUFF OF RIGHT SHOULDER, SUBSEQUENT ENCOUNTER Created [address] [facility], [address] [place] [id number] [phone] Elgin Andrea PA FLUORO INJ NO AUTH REQUIRED PER [facility] FOR FLUOROSCOPIC INJECTION TO RIGHT SHOULDER ([id number] [phone]) TO HARMEET Zepeda DG Created [address] [facility] [address] [place] [address] [phone] Elgin Andrea PA Physical Therapy [place] Shoulde r/[place] [id number],patient is going to [facility],passed to [facility]. sw. Created [address] [facility] [address] [place] [address] [phone] Elgin Andrea PA OV M54.5 LOW BACK PAIN Created [address] [facility] [place] [address] [phone] Mcelheran, Elgin K, PA AUTH FOR PT MATT SHOULDERS [phone]. [place].PASSED TO CHART.HW Created [address] [facility] [address] [place] [id number] [phone]
--- OUTSIDE RECORDS SUMMARY | 2021-07-06 15:36 | CCD ---
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 Active confirmed 03432651 Problem Stage 3b chronic kidney disease N18.32 Active confi rmed 016378635 Problem Dyslipidemia E78.5 Active confirmed 8682665 07 Problem Amenorrhea N91.2 Active confirmed 68275970 Problem Chronic rhinitis J31.0 Active confirmed 860 55456 ALLERGIES No Known Allergies ENCOUNTERS from 1973 to 2021-06-19 Encounter Location Date Provider Diagnosis [address] [phone] [place] [address] May, Frannie Varghese IMMUNIZATIONS Vaccine Route Administration [...] Education Language: Question Answer Notes Languages spoken: Faroese Samaritan: Question Answer Notes Samaritan No hindu beliefs that would impact health care. Sexual [...] Orally Once a day Active CareFine Pen Ebro 32G X 4 MM as directed subcutaneously [...] Therapy evaluate and treat as directed 1-3X/w [place], medically necessary to continue therapy; M25.511 Nov, Act alexis PROCEDURES No Information RESULTS No Results REASON FOR VISIT Records from [facility] MEDICAL (GENERAL) HISTORY Type Description Date Medical History HTN Medical History HLD Medical History Recurrent CVA, 2017 and 12/2018 - Dr. Renita jarvis Medical History Migraines - gets nerve blocks and Botox injections; Dr. Mata Medical History Legally blind due to CVA - [place] Salc[place], [facility] Medical History IDDM - Dr. 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 Hicks Medical History Nonepileptic seizures - sees a therapist , doesn't know where Surgical History heart loop at [facility] 10/2020 Hospitalization History frontal infarct 2018 Hospitalization History elevated BP 2018 Hospitalization History [facility] CVA? 12/2018 Hospitalization History [facility] stroke? 07/2020 Goals Section No Information [...] Therapy evaluate and treat as directed 1-3X/w [place], medically necessary to continue therapy; M25.511 Nov, [...] directed Subcutaneous 70 units daily CareFine Pen Ebro 32G X 4 MM as directed subcutaneously bid 0 4 Jan, 2019 glipiZIDE 5 MG 1 tablet with each meal MDD 2 Orally bid Next Appt Details Provider Name:Arleen Michelle, 2021-07-09 08:40:00 AM, [address] [place] [address], , [place], [address], Provider Name:Frannie Varghese, 2021-12-20 09:30:00 AM, [address] [place] [address], , [place], [address], Insurance Providers Payer Name Payer Address Payer Phone Insured Name Patient Relati onship to Insured Coverage Start Date Coverage End Date [facility] [employer] [facility] [address] [facility] [phone] CHRISTIANO MARKHAM self
--- OUTSIDE RECORDS SUMMARY | 2021-07-06 15:36 | CCD ---
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 Z79.4 Active conf irmed [id number] Problem Type 2 diabetes mellitus with hyperglycemia E11.65 Active confirmed 00271102 Problem History of CVA with residual deficit I69.30 Act alexis confirmed 465428394 Problem Essential hypertension I10 Active confirmed 78397521 Problem 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 Activ e confirmed 46055276 Problem Recurrent strokes I63.9 Active confirmed 23 4190936 Problem Ataxic gait R26.0 Active confirmed 58908359 Problem Leukocytosis, unspecified type D72.829 Active confi rmed 279642367 Problem History of non anemic vitamin B12 deficiency Z86.3 9 Active confirmed 197174405 Problem Chronic migraine G43.709 Active confirmed 42 4495618 Problem Legally blind H54.8 Active confirmed 025204 07 Problem Other intervertebral disc degeneration, lumbar region M51.36 Active confirmed 84004145 Problem 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 20 Active confirmed 828244719 Problem Other chronic pain G89.29 Active confirmed 8 8869085 ALLERGIES No Known Allergies ENCOUNTERS from 1973 to 2021-06-04 Encounter Location Date Provider Diagnosis [phone] [place] [address] 04 May, 2021 Frannie Varghese Other intervertebral disc de generation, lumbar region M51.36 IMMUNIZATIONS Vaccine Route Administration Date Status Influenza [...] Education Language: Question Answer Notes Languages spoken: Albanian Judaism: Question Answer Notes Judaism No catholic beliefs that would impact health care. Sexual [...] smoker REASON FOR REFERRAL from 1973 to 2021-06-04 Reason Already established patient needs ongoing care; new referral placed for insurance requirement Diagnosis 1 Other intervertebral disc de generation, lumbar region (M51.36) Referral Organization [facility] Referring Provider First Name Frannie Referring Provider Last Name Halima Referring Provider Specialty Family Medicine Referred Provider Elissa Mcbride ([place]) Referred Provider Specialty Physical Therapist Referral Priority Routine General Notes Frannie Varghese MD 06/03/2021 3:08:56 PM > Needs [facility] authChristine Leonard 06/04/2021 9:54:10 AM > [facility] auth#[id number] for (1) unit each of CPT#11905, 42894, 11189, exp: 09/04/2021 VITAL SIGNS No information MEDICATIONS Medication SIG (Take, Route, Frequency, Duration) Notes Start Da te End Date Status amLODIPine Besylate 5 MG 1 tablet Orally Once a day Active Topamax 50 MG 2 tablets Orally bid A ctive Vitamin B12 1000 MCG 1 tablet Orally three times a week on thursday for 90 days Jul, Not-Taking Magnesium 400 MG 1 tablet Orally once a day Active Admelog SoloStar 100 UNIT/ML 6 units at breakfast and lunch and 8 units at dinner Subcutaneous Active Lisinopril 5 MG 1 tablet Orally Once a day Active Tresiba FlexTouch 200 UNIT/ML as directed Subcutaneous 70 units daily Active Ezetimibe 10 MG TAKE ONE TABLET BY MOUTH @8AM for 28 Active Aspirin Adult 325 MG 1 tablet Orally Once a day for 28 Active Levocetirizine Dihydrochloride 5 MG TAKE ONE TABLET BY MOUTH @8PM for 28 Active glipiZIDE 5 MG 1 tablet with each meal MDD 2 Orally bid Active CareFine Pen [place] 32G X 4 MM as directed subcutaneously bid Jan, Active Systane Ultra 0.4-0.3 % 1 drop Ophthalmic as needed Active Folic Acid 1 MG 1 tablet Orally Once a day for 28 Active Lancets - as directed subcutaneously Three times d aily before meals. DX: Z79.1 May, Active Physical Therapy evaluate and treat as directed 1-3X/w pok[place], medically necessary to continue therapy; M25.511 for 60 days Nov, Active Meclizine HCl 25 MG TAKE ONE TABLET BY MOUTH @8A M and TAKE ONE TABLET @8PM for 28 Active Ferrous Gluconate 324 (38 Fe) MG 1 tab Orally Daily Not-Taking BD Pen Needle Wendy U/F 32G X 4 MM as directed subcutan eously four times daily for 30 Days Active Zofran ODT 4 MG 1 tablet on the tongue and a llow to dissolve Orally every 4 hours as needed for 90 days Acti ve Atorvastatin Calcium 80 MG TAKE ONE TABLET BY MOUTH @8PM for 28 Active Labetalol HCl 200 MG TAKE ONE TABLET BY MOUTH @8PM for 28 Active Vitamin B-2 100 MG 1 tablet Orally Once a day Active PROCEDURES No Information RESULTS No Results REASON FOR VISIT [facility] PT referral MEDICAL (GENERAL) HISTORY Type Description Date Medical History HTN Medical History HLD Medical History Recurrent CVA, 2017 and 12/2018 - Dr. Renita jarvis Medical History Legally blind due to CVA - [place] Medical History IDDM - Dr. Navarro Medical History Seasonal allergies Medical History Follows with Dr. Carreon Medical History Heterozygous MTHFR mutations C677T and T1193F - previously saw Heme/Onc in [place] Medical History Hyperhomocysteinemia Medical History Asthma Medical History Right shoulder pain - [facility] Surgical History heart loop at [facility] 10/2020 Hospitalization History frontal infarct 2017 Hospitalization History elevated BP 2018 [facility]? 07/2020 Goals Section No Information Health Concerns No Information MEDICAL EQUIPMENT No Information MENTAL STATUS No Information FUNCTIONAL STATUS No Information ASSESSMENTS Encounter Date Diagnosis Assessment Notes Treatment Notes Treatm ent Clinical Notes May, Other intervertebral disc de generation, lumbar region (ICD-10 - M51.36) PLAN OF TREATMENT Medication Medication Name Sig Start Date Stop Date glipiZIDE 5 MG 1 tablet with each meal MDD 2 Orally bid Atorvastatin Calcium 80 MG TAKE ONE TABLET BY MOUTH @8PM for 28 Levocetirizine Dihydrochloride 5 MG TAKE ONE TABLET BY MOUTH @8P M for 28 Aspirin Adult 325 MG 1 tablet Orally Once a day for 28 Vitamin B-2 100 MG 1 tablet Orally Once a day Admelog SoloStar 100 UNIT/ML 6 units at breakfast and lunch and 8 units at dinner Subcutaneous BD Pen Needle Wendy U/F 32G X 4 MM as directed subcutan eously four times daily for 30 Days Folic Acid 1 MG 1 tablet Orally Once a day for 28 Tresiba FlexTouch 200 UNIT/ML as directed Subcutaneous 70 units daily Meclizine HCl 25 MG TAKE ONE TABLET BY MOUTH @8A M and TAKE ONE TABLET @8PM for 28 Labetalol HCl 200 MG TAKE ONE TABLET BY MOUTH @8PM for 28 Topamax 50 MG 2 tablets Orally bid Lisinopril 5 MG 1 tablet Orally Once a day amLODIPine Besylate 5 MG 1 tablet Orally Once a day Ezetimibe 10 MG TAKE ONE TABLET BY MOUTH @8AM for 28 Magnesium 400 MG 1 tablet Orally once a day Referrals Referral Date Details Already established patient needs ongoing care; new referral placed for insurance requirement, Therapy ([facility] Appt Details Provider Name:Frannie Varghese, 2021-06-18 08:15:00 AM, [address] [facility], , [place], [address], Provider Name:Arleen Michelle, 2021-07-09 08:40:00 AM, [address] [facility], , [place], [address], Insurance Providers Payer Name Payer Address Payer Phone Insured Name Patient Relati onship to Insured Coverage Start Date Coverage End Date [facility] PLAN [facility] [address] [facility] [phone] CHRISTIANO MARKHAM self
--- OUTSIDE RECORDS SUMMARY | 2021-07-06 15:36 | CCD ---
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 current use of insulin Z79.4 Active conf irmed 662014265 Problem Type 2 diabetes mellitus with hyperglycemia E11.65 Active confirmed 52469889 Problem History of CVA with residual deficit I69.30 Act alexis confirmed 959326121 Problem Essential hypertension I10 Active confirmed 43009865 Problem Heterozygous MTHFR mutation U7121D E72.12 Activ e confirmed 85630108 Problem Recurrent strokes I63.9 Active confirmed 23 0194629 Problem Ataxic gait R26.0 Active confirmed 04243792 Problem Leukocytosis, unspecified type D72.829 Active confi rmed 988698524 Problem History of non anemic vitamin B12 deficiency Z86.3 9 Active confirmed 335243877 Problem Chronic migraine G43.709 Active confirmed 42 3754750 Problem Legally blind H54.8 Active confirmed 828324 07 Problem Other intervertebral disc degeneration, lumbar region M51.36 Active confirmed 02288520 Problem 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 20 Active confirmed 946313233 Problem Other chronic pain G89.29 Active confirmed 8 1572386 ALLERGIES No Known Allergies ENCOUNTERS from 1973 to 2021-06-03 Encounter Location Date Provider Diagnosis [phone] [place] [address] 04 May, 2021 Frannie Varghese Strain of muscle(s) and tend on(s) of the rotator cuff of right shoulder, subsequent encounter S46.011D IMMUNIZATIONS Vaccine Route Administration Date Status Influenza [...] Education Language: Question Answer Notes Languages spoken: Kittitian Taoist: Question Answer Notes Taoist No baptist beliefs that would impact health care. Sexual [...] smoker REASON FOR REFERRAL from 1973 to 2021-06-03 Reason Already established patient needs ongoing care; new referral placed for insurance requirement Diagnosis 1 Strain of muscle(s) and tend on(s) of the rotator cuff of right shoulder, subsequent encounter (S46.011D) Referral Organization [facility] Aric Referring Provider First Name Frannie Referring Provider Last Name Halima Referring Provider Specialty Family Medicine Referred Provider [facility],Orthopedics Referred Provider Specialty Orthopedic Surgery Referral Priority Routine General Notes Frannie Varghese MD 06/03/2021 2:05:12 PM > Needs [facility] Suzie Villegas 06/03/2021 2:21:21 PM > [facility] referral done for Dr. Amador ID# [id number], form faxed VITAL SIGNS No information MEDICATIONS Medication SIG [...] MDD 2 Orally bid Active CareFine Pen [place] 32G X 4 MM as directed subcutaneously bid Jan, Active Systane Ultra 0.4-0.3 % 1 drop Ophthalmic as needed Active Folic Acid 1 MG 1 tablet Orally Once a day for 28 Active Lancets - as directed subcutaneously Three times d aily before meals. DX: Z79.1 May, Active Physical Therapy evaluate and treat as directed 1-3X/w [place], medically necessary to continue therapy; M25.511 for [...] Information RESULTS No Results REASON FOR VISIT [facility]-Referral MEDICAL (GENERAL) HISTORY Type Description Date Medical History HTN Medical History HLD Medical History Recurrent CVA, 2017 and 12/2018 - Dr. Renita jarvis Medical History Legally blind due to CVA - [place] Medical History IDDM - Dr. Fish Medical History Seasonal allergies Medical History Follows with Dr. Carreon Medical History Heterozygous MTHFR mutations C677T and M5528E - previously saw Heme/Onc in [place] Medical History Hyperhomocysteinemia Medical History Asthma Medical History Right shoulder pain - [facility] Surgical History heart loop at [facility] 10/2020 Hospitalization History frontal infarct 2017 Hospitalization History elevated BP 2017 Hospitalization History [facility] CVA? 12/2018 Hospitalization History [facility] stroke? 07/2020 Goals Section No Information Health Concerns No Information MEDICAL EQUIPMENT No Information MENTAL STATUS No Information FUNCTIONAL STATUS No Information ASSESSMENTS Encounter Date Diagnosis Assessment Notes Treatment Notes Treatm ent Clinical Notes May, Strain of muscle(s) and tend on(s) of the rotator cuff of right shoulder, subsequent encounter (ICD-10 - S46.011D) PLAN OF TREATMENT Medication Medication Name Sig [...] care; new referral placed for insurance requirement, Orthopedics [facility] Next Appt Details Provider Name:Frannie Nito Varghese, 2021-06-18 08:15:00 AM, [address] [facility], , [place], [address], Provider Name:Arleen Michelle, 2021-07-09 08:40:00 AM, [address] [facility], , [place], [address], Insurance Providers Payer Name Payer Address Payer Phone Insured Name Patient Relati onship to Insured Coverage Start Date Coverage End Date [facility] [address] [facility] [address] CHRISTIANO MARKHAM self
--- OUTSIDE RECORDS SUMMARY | 2021-07-06 15:37 | CCD ---
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 Z79.4 Active conf irmed 263519879 Problem Recurrent strokes I63.9 Active confirmed 23 8165144 Problem History of CVA with residual deficit I69.30 Act alexis confirmed 491277836 Problem Legally blind H54.8 Active confirmed 564593 07 Problem Ataxic gait R26.0 Active confirmed 71797368 Problem Leukocytosis, unspecified type D72.829 Active confi rmed 142022889 Problem Other chronic pain G89.29 Active confirmed 8 7193541 Problem 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 20 Active confirmed 183262675 ALLERGIES No Known Allergies ENCOUNTERS from 1973 to 2021-04-10 Encounter Location Date Provider Diagnosis [address] [phone] [place] [address] Mar, Frannie Varghese IMMUNIZATIONS Vaccine Route Administration Date [...] Education Language: Question Answer Notes Languages spoken: South Sudanese Voodoo: Question Answer Notes Voodoo No baptism beliefs that would impact health care. Sexual [...] Notes Start Da te End Date Status Topamax 50 MG 2 tablets Orally bid A ctive Lipitor 80 MG 1 tablet Orally Once a day for 28 Active Vitamin B12 1000 MCG 1 tablet Orally three times a week on thursday for 90 days Jul, Not-Taking Lisinopril 5 MG 1 tablet Orally Once a day Active Meclizine HCl 25 MG 1 tablet Orally twice a day for 28 Active amLODIPine Besylate 5 MG 1 tablet Orally Once a day Active Aspirin Adult 325 MG 1 tablet Orally Once a day for 28 Active Magnesium 400 MG 1 tablet Orally once a day Active glipiZIDE 5 MG 1 tablet with each meal MDD 2 Orally bid Active Labetalol HCl 200 MG 1 tablet Orally Daily evening Active Levocetirizine Dihydrochloride 5 MG 1 tablet in the ev ening Orally Once a day for 28 Active CareFine Pen [place] 32G X 4 MM as directed subcutaneously bid Jan, Active Systane Ultra 0.4-0.3 % 1 drop Ophthalmic as needed Active Tresiba FlexTouch 200 UNIT/ML as directed Subcutaneous 70 units daily Active Lancets - as directed subcutaneously Three times d aily before meals. DX: Z79.1 May, Active Physical Therapy evaluate and treat as directed 1-3X/w [employer], medically necessary to continue therapy; M25.511 for 60 days Nov, Active Admelog SoloStar 100 UNIT/ML 6 units at breakfast and lunch and 8 units at dinner Subcutaneous Active Ferrous Gluconate 324 (38 Fe) MG 1 tab Orally Daily Not-Taking BD Pen Needle Wendy U/F 32G X 4 MM as directed subcutan eously four times daily for 30 Days Active Zofran ODT 4 MG 1 tablet on the tongue and a llow to dissolve Orally every 4 hours as needed for 90 days Acti ve Ezetimibe 10 MG 1 tablet Orally Once a day for 28 Active Folic Acid 1 MG 1 tablet Orally Once a day for 28 Active Vitamin B-2 100 MG 1 tablet Orally Once a day Active PROCEDURES No Information RESULTS No Results REASON FOR VISIT Plumbing Designer referral, [facility] MEDICAL (GENERAL) HISTORY Type Description Date Medical History HTN Medical History HLD Medical History Recurrent CVA, 2017 and 12/2018 - Dr. Renita jarvis Medical History Legally blind due to CVA - [place] Medical History IDDM - Dr. Navarro Medical History Seasonal allergies Medical History Follows with Dr. Carreon Medical History Heterozygous MTHFR mutations C677T and B8212O - previously saw Heme/Onc in [place] Medical History Hyperhomocysteinemia Medical History Asthma Medical History Right shoulder pain - [facility] Surgical History heart loop at [facility] 10/2020 Hospitalization History frontal infarct 2017 Hospitalization History elevated BP 2017 Hospitalization History [facility] CVA? 12/2018 Hospitalization History [facility] stroke? 07/2020 Goals Section No Information Health Concerns No Information MEDICAL EQUIPMENT No Information MENTAL STATUS No Information FUNCTIONAL STATUS No Information ASSESSMENTS No Information PLAN OF TREATMENT Medication Medication Name Sig Start Date Stop Date Levocetirizine Dihydrochloride 5 MG 1 tablet in the ev ening Orally Once a day for 28 Ezetimibe 10 MG 1 tablet Orally Once a day for 28 Labetalol HCl 200 MG 1 tablet Orally Daily evening glipiZIDE 5 MG 1 tablet with each meal MDD 2 Orally bid Vitamin B-2 100 MG 1 tablet Orally Once a day Meclizine HCl 25 MG 1 tablet Orally twice a day for 28 BD Pen Needle Wendy U/F 32G X 4 MM as directed subcutan eously four times daily for 30 Days Tresiba FlexTouch 200 UNIT/ML as directed Subcutaneous 70 units daily Aspirin Adult 325 MG 1 tablet Orally Once a day for 28 Admelog SoloStar 100 UNIT/ML 6 units at breakfast and lunch and 8 units at dinner Subcutaneous Folic Acid 1 MG 1 tablet Orally Once a day for 28 Lipitor 80 MG 1 tablet Orally Once a day for 28 amLODIPine Besylate 5 MG 1 tablet Orally Once a day Topamax 50 MG 2 tablets Orally bid Magnesium 400 MG 1 tablet Orally once a day Lisinopril 5 MG 1 tablet Orally Once a day Next Appt Details Provider Name:Frannie Varghese, 2021-06-18 08:15:00 AM, [address] [facility], , [place], [address], Insurance Providers Payer Name Payer Address Payer Phone Insured Name Patient Relati onship to Insured Coverage Start Date Coverage End Date [facility] [address] [facility] [address] CHRISTIANO MARKHAM self
--- OUTSIDE RECORDS SUMMARY | 2021-07-06 15:37 | CCD | Continuity of Care Document ---
Author Author Shawna ANDREA P.AGuillermo Organization Unknown Address [address] [place] [address], [address] [address] Phone [phone] Care Team Providers Care Foreign Exchange Student Coordinator Name Role Phone Frannie Varghese MD AUTM [phone] Problems Active Problems Provider Date Essential hypertension [...] Information Available Procedures Date Code Description Status 03/20/2021 53802 Office/Outpatient Established Lo w MDM 20-29 Min Completed 02/04/2021 22333 Office/Outpatient Established Lo w MDM 20-29 Min Completed 12/24/2020 21397 Office/Outpatient Established Lo w MDM 20-29 Min Completed 12/24/2020 44118 Inject/Drain Joint/Bursa Major C ompleted Medical Devices Description No Information Available Encounters Type Date Location Provider Dx Diagnosis Office Visit 03/20/2021 9:15a Chad Andrea P.A. S46.011D Strain of musc/tend the rotator cuff of right shoulder, subs S46.012D Strain of musc/tend the rota tor cuff of left shoulder, subs M54.2 Cervicalgia Office Visit 02/04/2021 9:15a Chad Andrea P.AGuillermo S46.011D Strain of musc/tend the rotator cuff of right shoulder, subs S46.012D Strain of musc/tend the rota tor cuff of left shoulder, subs M54.2 Cervicalgia Office Visit 12/24/2020 4:00p Dion Aldrich S46.011D Strain of musc/tend the rotator cuff [...] left shoulder, subsequent encounter [place] Andrea P.A. 02/04/2021 M54.2 Cervicalgia Elgin pedro, P.A. 12/24/2020 S46.011D Strain of muscle(s) and tendon(s) of the rotator cuff of right shoulder, subsequent encounter [place] Andrea P.A. 12/24/2020 S46.012D Strain of muscle(s) and tendon(s) of the rotator cuff of left shoulder, subsequent encounter [place] Andrea P.A. 12/24/2020 M54.2 Cervicalgia [place] pedro, P.AGuillermo Plan of Treatment Future Appointment(s):* 05/15/2021 9:30 am - Dion Joy at [place] 05/09/2021 - Dion Joy* S46.011D Strain of muscle(s) and tendon(s) of the rotator cuff of right shoulder, subsequent encounter* New Xrays:* Flouriscopic xray guided inj rt shoulder, Ordered: 05/09/21 * Follow up:* 6-8 weeks with m back/bilshoulder/neck re-check * S46.012D Strain of muscle(s) and tendon(s) of the rotator cuff of left shoulder, subsequent encounter * M54.2 Cervicalgia * M51.36 Other intervertebral disc degeneration, lumbar region * M43.16 Spondylolisthesis, lumbar region Functional Status Description No Information Available Mental Status Description No Information Available Referrals Refer to Dr Reason for Referral Status Appt Date [place] Andrea PA Physical Therapy Matt Shoulde r/Neck,[place] [id number],patient is going to [facility],passed to chart. sw. Created [address] [place] [address] [phone] Elgin Andrea PA M54.5 LOW BACK PAIN Created [address] [place] [address] [phone] Elgin Andrea PA AUTH FOR PT MATT SHOULDERS [phone]. [place].PASSED TO CHART.HW Created [address] [place] [address] [phone] Elgin Andrea PA O/V FOR MATT SHOULDER Created [address] [facility] [place] [address] [phone]
--- OUTSIDE RECORDS SUMMARY | 2021-07-06 15:37 | CCD | Summary of Care ---
Author Author [facility] Organization [facility] Address Unknown Phone Unavailable Care Team Providers Care Floral Artist Name Role Phone Frannie Varghese MD PCP Reason for Referral * Psychiatric (Routine) Referred By Contact Referred To Contact Status Reason Specialty Diagnoses / Procedures Farhat Awan MD [address] [place] [id number] Email: [email or web address] [address] [place] [address] Open Specialty Services Psychiatry Diagnoses Required Leg weakness, bilateral Electronically signed by Reji Dumont MD at * Diagnostic Radiology (Routine) Referred By Contact Referred To Contact Status Reason Specialty Diagnoses / Procedures Audrey Snow MD [address] [id number] Email: [email or web address] Open Procedures US Doppler Lower Extremity Bilateral Venous Comp (Vascular Lab) Electronically signed by Reji Dumont MD at Reason for Visit * Reason Comments Extremity Weakness legs * Auth/Cert Referred By Contact Referred To Contact Status Reason Specialty Diagnoses / Procedures Diagnoses Leg weakness, bilateral Encounter Details Care Team Description Date Type Department Candido Pino MD [address] [place] [address] [phone] Adrian Suarez MD [address], [address] [place] [id number] [phone] Reji Dumont MD [address] [place] [address] [phone] Weakness (Primary Dx); Leg weakness, bilateral 04/06/2021 [facility] NEUROSURGERY - Encounter Hipolito Gonzalez 04/09/2021 [place] [id number] Allergies Comments Active Allergy Reactions Severity Noted Date Adhesive Tape Rash Low 08/02/2020 Bee Venom Anaphylaxis High 09/07/2020 Making her "loopy" Gveuhuknit-Zwzl-Rwufrdlx Other (See 04/15/2018 Comments) documented as of this encounter (statuses as of 04/09/2021) Medications End Date Status Medication Sig Dispensed [...] PRODIGY LANCETS 28G Use as 150 each 5 MISCIndications: Type 2 directed. To 9 diabetes mellitus with test blood hyperglycemia, with glucose 4x long-term current use of daily. insulin Dx:E11.65 Active levalbuterol (XOPENEX) Take 1 ampule 0 1.25 MG/3ML nebulizer by solution nebulization as needed for Wheezing Active folic acid (FOLVITE) 1 MG Take 1 mg by 3 04/0 tablet mouth daily 9 Active ondansetron (ZOFRAN-ODT) dissolve ONE 5 11/18 4 MG disintegrating TABLET BY 9 tablet MOUTH EVERY FOUR HOURS NEEDED FOR NAUSEA DIRECTED Active Polyethyl Glycol-Propyl Place 1 drop 0 Glycol (SYSTANE) 0.4-0.3 into both % SOLN eyes Four times daily as needed Active TRESIBA FLEXTOUCH 200 Inject 84 5 04/25/20 1 UNIT/ML concentrated Units into 9 [...] by 1 (Neurontin)Indications: mouth nightly Lumbar radiculopathy 04/09/2021 Discontinued (Stop Taking at Discharge) predniSONE 10 MG Oral 60 mg x1 day, 22 tablet 0 Tablet 50mg x 1 day, 1 (DELTASONE)Indications: 40 mg x 1 Chronic migraine, Status day, 30 mg x migrainosus day, 20 mg x 1, 10 x 1 day, 5 x 1 day documented as of this encounter (statuses as of 04/09/2021) Active Problems Problem Noted Date Leg weakness, bilateral 04/06/2021 Status post placement of implantable loop recorder 0 02/06/2021 Aortic atherosclerosis 02/06/2021 Cryptogenic stroke 09/25/2020 Magnetic resonance imaging of brain abnormal 020 Functional neurological symptom disorder with mixed s ymptoms 04/22/2020 Intractable migraine without aura and without status migrainosus 02/09/2020 Abnormal brain MRI 01/14/2019 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 Insulin Injection Record Shawna Markham 11/26/2018 Meal Time Insulin Type: admelog Blood [...] as of this encounter (statuses as of 04/09/2021) Resolved Problems Problem Noted Date Resolved Date Ocular migraine with status migrainosus 12/27/2018 01/04/2019 Acute ischemic right SHEET METAL FABRICATOR stroke 04/14/20182018 Advanced maternal age in 04/13/2012 documented as of this encounter (statuses as of 04/09/2021) Social History Date Tobacco Use Types Packs/Day Years Used Never Smoker Smokeless Tobacco: Never Used Comments Alcohol Use Standard Drinks/Week No 0 (1 standard drink = 0.6 o z pure alcohol) Sex Assigned at Date Recorded Not on file Date Recorded COVID-19 Exposure Response 04/05/2021 6:05 PM EDT In the last month, have you been in contact with No / Unsure someone who was confirmed or suspected to have Coronavirus / COVID-19? documented as of this encounter Last Filed Vital Signs Reading Time Taken Comments Vital Sign 107/72 04/09/2021 3:43 PM EDT Blood Pressure 88 04/09/2021 3:43 PM EDT Pulse 36.6 C (97.8 F) 04/09/2021 3:43 PM EDT Temperature 16 04/09/2021 3:43 PM EDT Respiratory Rate 96% 04/09/2021 3:43 PM EDT Oxygen Saturation - - Inhaled Oxygen Concentration 107.1 kg (236 lb 1.8 oz) 04/09/2021 6:00 AM EDT Weight - - Height 44.61 01/31/2021 11:24 AM EDT Body Mass Index documented in this encounter Discharge Instructions * Instructions* Audrey Snow MD - 04/09/2021 3:02 PM EDT Please follow up with neurology. Clinic office will reach out to you for follow up. Please continue medications as prescribed. documented in this encounter Progress Notes * Arianna Kessler OT - 04/09/2021 2:36 PM EDT Occupational Therapy Acute Care Treatment Note Medical Diagnosis: lower extremity weakness Rehabilitation Precautions/Restrictions: Allow ROM , OOB to chair Goal Review Visit Number: 1 SUBJECTIVE Patient Report: I'm feeling back to 100% Pain: Patient has no complaints of pain currently. Pain Medication Today: no. OBJECTIVE General Observation: Patient sitting in recliner chair +telem +PIV No chair alarm noted at start of session. Vital Signs: Stable. Range of Motion:No change observed. Strength:No change observed. Skin Integrity Screen: grossly intact Self Care/Home Management: Toilet transfer: Modified Hettinger. Toileting: Modified [place]ting[place]. Splinting: No splint issued today. Cognitive Test Score: Grossly intact score = Outcome Measures: [facility] AM-PAC "6 Clicks" Daily Activity Inpatient Short Form: Putting on and taking off regular lower body clothing: A little assistance (3) Bathing (including washing, rinsing, and drying): A little assistance (3) Toileting (including use of toilet, bedpan, or urinal): No assistance (4) Putting on and taking off regular upper body clothing: A little assistance (3) Taking care of personal grooming such as brushing teeth: No assistance (4) Eating meals: No assistance (4) Raw Score: 21 /24 Interventions: Self Care/Home Management: OT observed patient completing toilet transfer, clothing management and hygiene with modified independence and no loss of balance. Therapist reviewed patient's home supports and PLOF versus CLOF, reports back at baseline. Patient will have assist as needed upon return home. Education: Mode of education provided: Explanation. Audience: Patient/family. Education Provided: plan of care, discharge planning/recommendations . Response: Verbalized understanding. ASSESSMENT Response to Visit: The session was tolerated well. Chair alarm was on at end of session. Call fairbanks was in patient's reach at end of session. Pain: Patient has no complaints of pain currently. Goal review: Short Term Goals: 1. pt will complete toilet transfer with minimal assist in 2 weeks Status: Goal Met. Modified Independent. 2. pt will complete LB dressing with minimal assist in 2 weeks Status: Goal Met. Patent's spouse assists with socks and shoes at baseline. 3. pt will complete supine to sitting at the edge of the bed with minimal assist in 2 weeks Status: Goal Met. Marine Chronometer Assembler Goals: 1. pt will complete full body bathing with modified independence in 4 weeks Status: Patient bathes with SBA at baseline. Goal not appropriate to patient's PLOF. 2. pt will complete functional transfers from various surfaces with modified independence in 4 weeks Status: Goal Met. PLAN Treatment Frequency, Duration and Interventions: The patient has been discharged from Occupational Therapy services secondary to: Goals have been MET. Equipment Provided: None issued this visit. Equipment Recommended: None, patient has necessary equipment at home. Recommended Occupational Therapy Follow Up: Upon acute care discharge, the following is currently recommended: Home with family assist as needed for ADL/IADL. Recommended Consults: None currently. Development of Plan of Care: Participants included: Patient. Visit Number: Today's visit is number 3 Program: Neuro (Therapist may be reached on FND) SESSION: Duration: 11 CHARGES: 70876 - CHARGE - OT SELF CARE ADL TRAIN-15 MIN 1 Units - NEURO VISIT 1 Units - ORDER - Occupational Therapy Treatment 1 Units Total treatment minutes: 11.00 Minutes Electronically Signed by: DEMETRIS Mccormack/Teresa, 04/09/2021 2:45:55 PM * Lois Costello, PT - 04/09/2021 1:47 PM EDT Physical Therapy Acute Care Encounter Note Medical Diagnosis: rule out seizure Rehabilitation Precautions/Restrictions: Allow ROM , OOB to chair Goal Review Visit Number: 2 SUBJECTIVE Patient Report: patient reported she is feeling much better today. pateint reported she can move her legs (and preceeded to lift them up off bed). patient reported she has 24 hour care at home and she can show proff if necessary. apatient stated her legs shake when she walks at time but ask her outpatient PT it is normal. pateint stated she cant turn left and she only sees shadows Pain: Patient has no complaints of pain currently. Pain Medication Today: no. OBJECTIVE General Observation: patient received supine in bed HOB eelevated (+) telemtry NAD Seizure pads present at start of session. Skin Integrity Screen: grossly intact Vital Signs: Not assessed. Functional Status: Transfers: Patient transferred sit to/from stand requiring stand by assistance. Patient used the following equipment: rolling walker. Patient used the following equipment: Gait belt - use per hospital policy. Bed Mobility: Patient moves from supine to/from sit with modified independence. Locomotion/Gait/Ambulation: Patient was contact guard with gait/ambulation of 1 person for approximately 60 feet . Patient requires the following assistive device(s): Rolling walker. Gait belt - use per hospital policy. (+) decreased gait speed (+) LOB posteriorly x2 but able to recover independently (+) occasional LE tremor/shaking patient also ambulated 5 feet without an assisitive device modified independent. Stairs: Patient was stand by assistance for 3 steps up and down . Patient used the following equipment: Unilateral Railing. Outcome Measures: [facility]-PAC "6 Clicks" Basic Mobility Inpatient Short Form: Turning over in bed: Unable to perform (1) Sitting down on and standing up from a chair with arms: No difficulty (4) Moving from lying on back to sitting on the side of the bed: A little difficulty (3) Moving to and from a bed to a chair (including a wheelchair): No help (4) Walking in hospital room: A little help (3) Climbing 3-5 steps with a railing: A little help (3) Raw Score 18 /24. Interventions: Therapeutic Activities: pateint transferred supine to sit and sit to stand with rolling walker as described above to assess for safe discharge home. patient stood statically with rolling walker without LOB. patient transferred into bedside chair by lflexing right hip and knee and placing it on top of chair and then using UE to push herself back in chair. Gait Training: patient ambulated distance with and without an assisitive device as described above. patient with LOB posteriorly x2 requiring CGA for safety but apteitn able to recover independnely on both occasions. pateint ambulated on stairs as described above to assess for safe discharge home. Education: Mode of education provided: Explanation. Audience: Patient. Education Provided: Plan of care. Role of acute PT. Home and community safety. Safe mobility. When/how to obtain future treatment. Response: Applied knowledge. Indicates understanding. ASSESSMENT Response to Visit: The session was tolerated well. patient able to toelrate and perform increased functional mobility this session Chair alarm was on at end of session. Call fairbanks was in patient's reach at end of session. Pain: Patient has no complaints of pain currently. PLAN Treatment Frequency, Duration and Interventions: Restorative Physical Therapy is recommended for 5x/week Treatment is to include: Gait Training. Neuromuscular Re-education. Therapeutic Activity. Therapeutic Exercise. Wheelchair Management Self Care/Home Management. Recommended Physical Therapy Follow Up: Upon acute care discharge, the following is currently recommended: home with asisit for mobility and outpatient PT Equipment Provided: None issued this visit. Visit Number: Today's visit is number 2 Program: Neuro (Therapist may be reached on FND) SESSION: Duration: 23 CHARGES: 21965 - CHARGE - PT GAIT TRNG - 15 MIN 1 Units 87954 - CHARGE - PT THERAPEUTIC ACTIVITIES - 15 MIN 1 Units - NEURO VISIT 1 Units - ORDER - Physical Therapy Treatment 1 Units Total treatment minutes: 23.00 Minutes Electronically Signed by: Lois Costello PT, 04/09/2021 1:56:07 PM * Mary Flanagan RN - 04/09/2021 10:50 AM EDT Case Management Screen & Assessment Patient Name: Shawna Markham Gender: female Date of : 1975 Admission Dx: Leg weakness, bilateral [R29.898] Age: 45 y.o. Admission: 04/06/2021 3:44 AM Attending Provider: Reji Dumont MD High Risk Criteria - Prior to Admission/Upon Arrival POLYMER SPECIALIST-Type of Residence: Private Residence POLYMER SPECIALIST- Home Care Services: No Limited Home Supports/Lives Alone?: No Multi trauma/Critical care/Step down admit?: No Head/Spinal cord injury?: No Self Pay: No Multiple ED visits?: No Related/Unplanned readmission within 30 days?: No Complex/New medical issues: Leg weakness Relevant comorbidities: Prior Strokes 2018 & 2019, T2DM, Migraines, HTN, CKD, HLD, Blindness Screening Outcome Social Work Consult Needed?: No Further Case Management Needs?: Case Management Needs Chart Review PCP Verified?: Patient has PCP Prior to Admission: Functional/Environmental Assessment Bathing: Independent Dressing: Independent Toileting: Independent Medication administration: Independent Transfers: Independent Ambulation: Independent Meal preparation: Independent Number of stairs into home: 5 Number of stairs to bathroom: 0 Number of stairs to bedroom: 0 Durable Medical Equipment (DME): Walker, Cane, Wheelchair-manual, Other (comment ) (SHower chair, lift chair) Potential Barriers/Teaching Needs Physical: related to bilateral leg weakness Case Management Re-Review Case Management Re-Review Needed?: Yes Case Management Re-Review Date: 04/16/21 Discharge Planning Living Arrangements: Spouse/significant other, Children Support Systems: Spouse/significant other, Children, Family members, Friends/lizzy hicks Type of Residence: Private residence Is this patient appropriate for transfer to [facility] Hospital?: No Patient/family informed of need for discharge planning?: Yes Patient expects to be discharged to:: TBD- patient wants to go home, has 24/7 mcnally pports Note: Patient discussed in multidisciplinary rounds. Patient updates reviewed. P atient presented to ER from home with shaking, leg weakness. Patient currently i hospital for bilateral leg weakness. Patient currently being worked up for sei zure and stroke. Met with patient at bedside. Role of leather case finisher reviewed. Patient confirmed de mographic information. Patient was independent in their care prior to admission. Patient lives with spouse and three children ages 18, 14 and 10. Supports incl ude spouse, children, family, friends. PT/OT orders in/recommendations currently STR, patient requesting to go home with 24/7 support and outpatient PT/OT, this information given to team and therapy to re-assess.. Patient was already going to outpatient PT/OT prior to admission. Transportation to be provided by spouse /family when ready for discharge. Patient is enrolled into meds to bed. Benefit check requested. No anticipated skilled needs by the time of discharge. Discharge plan for home w ith family supports once medically ready pending PT and OT recommendations. CM t o continue to follow and available if discharge needs arise. Mary Flanagan RN * Brett Stewart RN - 04/08/2021 6:45 PM EDT 1120 Pt was transferred from commode to bed by PT, while doing neuro assessment Pt started having RLE shaking, followed by RUE shaking, repeated eye twitching, stuttering and delayed speech lasted for 3 minutes. Post ictal Pt A/O to self/pl ab (pt's baseline), Pt states feeling tired, no numbness/tingling. An hour afte r Pt complained that LLE is stronger than the R. Greg Snow aware, at be dside to assess. [address] [facility] at bedside when Pt had another episode of RLE/RUE shaking, eyes rolled back and head rolling, lasted for 3 minutes, team is aware. * Reji Dumont MD - 04/08/2021 5:36 PM EDT PATIENT NAME: Shawna Markham, DATE OF : 1975 . General Neurology Service Progress Note Subjective Patient was seen and assessed at bedside. Patient denied any current pain or dis comfort. Patient did have several episodes of what appeared to be RUE/RLE shakin g w/ eyes rolled back, w/ head spinning. Episodes lasted between 30 seconds to 2 minutes. Patient does have some stuttering post episodes but is oriented to jordyn f, location. Sugars continue to be elevated and therefore patient placed on cust omizable sliding scale. Objective Visit Vitals BP 147/78 (BP Location: Left arm, Patient Position: Lying) Pulse 92 Temp 37 C (98.6 F) (Oral) Resp 18 LMP 03/12/2021 (Approximate) SpO2 96% Review of Systems Constitutional: Negative for activity change, chills and fever. HENT: Positive for hearing loss. Negative for ear pain and trouble swallowing. Eyes: Negative for pain. Respiratory: Negative for shortness of breath. Cardiovascular: Negative for chest pain. Gastrointestinal: Negative for abdominal pain. Neurological: Positive for seizures, speech difficulty (endorses stuttering post -episodes) and weakness (bilateral LE). Psychiatric/Behavioral: Positive for confusion (post-shaking episodes). Physical exam General appearence - middle aged female resting in bed comfortably, so ft voice HEENT- Head: NCAT Cardiovascular - NSR Respiratory - breath sounds clear and equal bilaterally Gastrointestinal - Abdomen soft, non-tender Extremities - extremities normal, atraumatic, no cyanosis or edema. Tenderness w / movement of LLE. No swelling noted Neurologic Exam Mental Status - alert and oriented x 3, pleasant and cooperative Cranial Nerves - left homonomous hemianopia, no facial weakness, hearing grossly intact Motor exam- Antigravity in all four extremities. Patient initially endorses weak ness but with persistent encouragement and repetition, no weakness is noted. LLE exam exam limited 2nd to pain. Strength - Upper extremity Deltoid Biceps Triceps Right 5 5 5 Left 5 5 5 Strength - Lower extremity Hip flexion Quads Ham TA Gastroc Right 5 5 5 5 4 Left 5 5 4 5 4 Deep Tendon Reflexes Right Left Biceps 2+ 2+ Patela 2+ 2+ Plantar flexor flexor Sensation - Light touch intact b/l UE and LE Cerebellar - finger to nose without dysmetria bilaterally Gait = deferred Diagnostics Results for orders placed or performed during the hospital encounter of 04/06/21 (from the past 24 hour(s)) Basic Metabolic Panel Collection Time: 04/08/21 3:47 AM Result Value Ref Range Bicarbonate 18 (L) 22 - 29 mmol/L Chloride 106 98 - 107 mmol/L Creatinine 1.55 (H) 0.50 - 0.90 mg/dL Glucose 191 (H) 70 - 140 mg/dL Potassium 4.3 3.4 - 5.1 mmol/L Sodium 135 (L) 136 - 145 mmol/L Blood Urea Nitrogen 39 (H) 6 - 20 mg/dL Anion Gap 11 8 - 15 mmol/L Osmolality, Eduardo 295 275.0 - 300.0 mosm/kg BUN/Cre Ratio 25 Calcium 9.0 8.6 - 10.0 mg/dL GFR Non 2008 CDK-EPI 39 (L) >60 mL/min/1.73m2 GFR 2008 CKD-EPI 45 (L) >60 mL/min/1.73m2 CBC and Differential Collection Time: 04/08/21 3:47 AM Result Value Ref Range White Blood Cell 16.9 (H) 4.00 - 10.00 10*3/uL Red Blood Cell 4.04 (L) 4.10 - 5.30 10*6/uL Hemoglobin 11.7 11.5 - 15.5 g/dL Hematocrit 35.1 (L) 36.0 - 45.0 % Mean Cell Volume 86.7 80.0 - 96.0 fL Mean Cell Hemoglobin 29.0 27.0 - 33.0 pg Mean Cell Hgb Conc 33.4 32 - 36 g/dL Red Cell Dist Width 14.1 11.5 - 14.5 % Platelet Count 343 150 - 400 10*3/uL Differential Type Automated Diff Neutrophil 60 % Lymphocyte 26 % Monocyte 9 % Eosinophil 4 % Basophil 1 % Abs Neutrophil 10.09 (H) 1.80 - 7.00 10*3/uL Abs Lymphocyte 4.45 (H) 1.20 - 4.00 10*3/uL Abs Monocyte 1.56 (H) 0.00 - 0.80 10*3/uL Abs Eosinophil 0.64 (H) 0.00 - 0.50 10*3/uL Abs Basophil 0.11 0.00 - 0.20 10*3/uL Nucleated Red Blood Cells 0 0 - 0 /100 POCT glucose, docked Collection Time: 04/08/21 8:29 AM Result Value Ref Range POC Glucose 167 (H) 70 - 140 mg/dL POCT glucose, docked Collection Time: 04/08/21 8:42 AM Result Value Ref Range POC Glucose 157 (H) 70 - 140 mg/dL POCT glucose, docked Collection Time: 04/08/21 12:45 PM Result Value Ref Range POC Glucose 231 (H) 70 - 140 mg/dL POCT glucose, docked Collection Time: 04/08/21 5:10 PM Result Value Ref Range POC Glucose 227 (H) 70 - 140 mg/dL Imaging CT Head without Contrast Result Date: 04/06/2021 IMPRESSION: 1. No acute intracranial hemorrhage or acute territorial infarct. 2. Encephalomalacia within the right SHEET METAL FABRICATOR distribution. Old lacunar type infarct s within bilateral basal ganglia and left thalamus, unchanged. MR Brain without Contrast Result Date: 04/06/2021 IMPRESSION: 1. No acute cerebral or cerebellar infarct. 2. Old cerebral infarc t in the right occipital lobe. 3. Old lacunar infarct in the left thalamus. 4. No large vessel occlusion in the [place] of [place]. 5. No occlusion in the kyle r arteries of the neck. MR Lumbar Spine without Contrast Result Date: 03/15/2021 IMPRESSION: Largely unremarkable MR study of lumbar spine except early degenerat alexis changes. In particular there is no significant spinal canal or foraminal evette nosis or disc protrusion identified.There is no nerve root compression. MR Angiography Head without Contrast Result Date: 04/06/2021 IMPRESSION: 1. No acute cerebral or cerebellar infarct. 2. Old cerebral infarc t in the right occipital lobe. 3. Old lacunar infarct in the left thalamus. 4. No large vessel occlusion in the [place]. 5. No occlusion in the k[place] r arteries of the neck. MR Angiography Neck without Contrast Result Date: 04/06/2021 IMPRESSION: 1. No acute cerebral or cerebellar infarct. 2. Old cerebral infarc t in the right occipital lobe. 3. Old lacunar infarct in the left thalamus. 4. No large vessel occlusion in the [place]. 5. No occlusion in the k[place] r arteries of the neck. Medications Current Facility-Administered Medications Medication Dose Route Frequency Provider Last Rate Last Admin amlodipine (NORVASC) tablet 5 mg 5 mg Oral Daily Porsha Tai MD 5 m g at 04/08/21 0857 aspirin tablet 325 mg 325 mg Oral Daily Porsha Tai MD 325 mg at 0857 atorvastatin (LIPITOR) tablet 80 mg 80 mg Oral QPM Porsha Tai MD 8 0 mg at 04/07/212155 dextrose 50 % IV solution 25 mL 25 mL Intravenous PRN Porsha Tai MD dextrose 50 % IV solution 25 mL 25 mL Intravenous PRN Audrey Snow MD ezetimibe (ZETIA) tablet 10 mg 10 mg Oral Daily Porsha Tai MD 10 m g at 04/08/21 0858 folic acid (FOLVITE) tablet 1 mg 1 mg Oral Daily Porsha Tai MD 1 m g at 04/08/21 0857 gabapentin (NEURONTIN) capsule 900 mg 900 mg Oral Nightly Porsha Tai MD 900 mg at 04/07/212155 glucagon (human recombinant) (GLUCAGEN) injection 1 mg 1 mg Intramuscula r PRN Porsha Tai MD glucagon (human recombinant) (GLUCAGEN) injection 1 mg 1 mg Intramuscula r PRDebbie Snow MD glucose (GLUTOSE) 40 % oral gel 15 g 15 g Oral PRN Porsha Tai MD glucose (GLUTOSE) 40 % oral gel 15 g 15 g Oral PRN Shona Naranjo heparin (porcine) 5000 UNIT/ML injection 5,000 Units 5,000 Units Subcuta neous BID Wenceslao Eisenberg MD 5,000 Units at 04/08/2158 insulin glargine (LANTUS) injection 52 Units 52 Units Subcutaneous Night ly Porsha Tai MD 52 Units at 04/07/212156 insulin lispro (HumaLOG) injection HIGH DOSE EATING INSULIN patients 1-22 Units 1-22 Units Subcutaneous 3 x Daily with Meals Audrey Snow MD 8 Units at 04/08/21 1330 labetalol (NORMODYNE) tablet 200 mg 200 mg Oral QPM Porsha Tai MD 200 mg at 04/07/212155 levocetirizine (XYZAL) tablet 5 mg 5 mg Oral Daily Porsha Tai MD 5 mg at 04/08/21 1018 lisinopril (ZESTRIL) tablet 5 mg 5 mg Oral Daily Prosha Tai MD 5 m g at 04/08/21 0857 magnesium oxide (MAG-OX) tablet 400 mg 400 mg Oral TID Porsha Tai MD 400 mg at 04/08/21 0858 meclizine (ANTIVERT) tablet 25 mg 25 mg Oral BID PRN Porsha Tai MD perflutren lipid microspheres (DEFINITY) injectable suspension 9.78 mg 1 .5 mL Intravenous Once PRN Porsha Tai MD topiramate (TOPAMAX) tablet 100 mg 100 mg Oral BID Porsha Tai MD 1 00 mg at 04/08/21 0858 Vitamin B-2 (RIBOFLAVIN) tablet TABS 200 mg 200 mg Oral Nightly Mindy Tai MD 200 mg at 04/07/21 4685 Assessment and Plan Shawna Markham is a 45 y.o. 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 Initially pre sented as stroke code, MRI negative for new infarct. Transferred to general to e valuate for seizures. Routine EEG unremarkable. Patient has no prior history of seizures, but is at risk given her strokes. Will start VEEG to capture an episod e and determine if epileptic. On topiramate for hx migraines, no new AEDs. No pr ovoking factors identified. Active Problems # Possible seizure - patient had multiple episodes on 04/08 described as RLE, RUE shaking, eyes frank d back that lasted anywhere from 30 sec- 2minutes w/ weakness after that imp roves. - patient currently on vEEG, no epileptic activity captured thus far - c/w topiramate 100mg bid (for migraines) # Leukocytosis, stable - chronic, follows with hematology - stable near baseline - no evidence of acute infection # Hyperglycemia due to Uncontrolled DM2 - sugars continue to be elevated - started on customizable SS, lantus 52U - c/w gabapentin for neuropathic pain # Hyperlipidemia - c/w atorvastatin, ezetimibe # Hypertension - c/w home lisinopril, labetalol, amlodipine # Hx migraines - c/w MgOx 400mg TID, Vit B2 200mg daily, Topamax 100mg BID # Hx R SHEET METAL FABRICATOR and L MCA strokes - c/w home aspirin, atorvastatin - MRI negative for new stroke # R/O DVTs - doppler of bilateral LE done on 04/08 negative for DVTs DVT Ppx: SCDs, heparin GI Ppx: None Diet: Diabetic Code Status: Full Disposition: PT recommending inpatient rehab Estimated Discharge Date: The patient was seen and examined. The care of this patient was discussed with shona cabrales attending Dr. Dumont and the plan was formulated together. Attending Addendum: I saw and evaluated the patient. Discussed with the residen t and agree with residents findings as documented in the resident's note, which has been modified where needed for accuracy. Reji Dumont MD * Ryanne Wolff RN - 04/08/2021 2:49 PM EDT Inpatient Diabetes Education Note: Shawna Markham : 1975 Lab Results Component Value Date HGBA1C 10.4 (H) 04/06/2021 HGBA1C 8.3 (H) 07/19/2020 HGBA1C 7.9 (H) 01/14/2019 Called patient's . Left message on [employer]. Will try again tomorrow. -Teresa Wolff RNpost anesthesia nurse * Ryanne Wolff RN - 04/08/2021 1:48 PM EDT Inpatient Diabetes Education Note: Shawna Markham : 1975 Lab Results Component Value Date HGBA1C 10.4 (H) 04/06/2021 HGBA1C 8.3 (H) 07/19/2020 HGBA1C 7.9 (H) 01/14/2019 Patient sleeping during rounds. 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 Will attempt to reach out to . -Ryanne Wolff RNpost anesthesia nurse * Christine Mares OT - 04/08/2021 11:33 AM EDT Occupational Therapy Acute Care Encounter Note Medical Diagnosis: lower extremity weakness Rehabilitation Precautions/Restrictions: Allow ROM , OOB to chair Goal Review Visit Number: 2 SUBJECTIVE Patient Report: "I guess." Pain: Patient currently complains of pain. Location: L leg . Patient describes pain as Nonspecific. Verbal Scale: Patient reports a pain level of 2 out of 10. Pain Medication Today: yes. OBJECTIVE General Observation: Pt was supine in bed with HOB elevated, NAD, + VEEG Bed alarm was on at start of session. Skin Integrity Screen: grossly intact Vital Signs: Stable. Self Care/Home Management: Toilet transfer: Minimal Assistance. Provided minimal number of cues to facilitate processing of organizing and/or completing task. Emphasized proper search patterns to compensate for visual/perceptual deficits. Utilized the following adaptive equipment to increase independence: bedside commode . Toileting: Minimal Assistance. Provided minimal number of cues to facilitate processing of organizing and/or completing task. Emphasized proper search patterns to compensate for visual/perceptual deficits. Splinting: No splint issued today. Cognitive Test Score: Not tested. Outcome Measures: [facility]-P[facility] "6 Clicks" Daily Activity Inpatient Short Form: Putting on and taking off regular lower body clothing: A lot of assistance (2) Bathing (including washing, rinsing, and drying): A lot of assistance (2) Toileting (including use of toilet, bedpan, or urinal): A little assistance (3) Putting on and taking off regular upper body clothing: A little assistance (3) Taking care of personal grooming such as brushing teeth: A little assistance (3) Eating meals: A little assistance (3) Raw Score: 16 /24 Interventions: Self Care/Home Management: Pt was supine in bed, listening to music on her I-phone, agreeable to session, asking to use the bathroom. Pt was facilitated in bed mobility in prep for toileting needing verbal cues for safety, verbal cues due to visual impairments for hand placement and Min assist for managing her LLE on/off the bed. Pt complaining of L knee pain which her bedside RN is well aware and she is waiting on a doppler to be preformed. Pt was facilitated in sit to stand transfers in prep for ADL's needing verbal cues for safety and Min assist. Pt is unable to bear her full weight onto her LLE due to pain. Min assist for stand pivot transfers ie: bed to/from bedside commode, verbal cues for safety and verbal cues for compensatory strategies due to visual deficits. Pt was facilitated in ADL's ie: toileiting needing verbal cues for safety, extra time and the above assistance level for task completion. Pt was educated on role of OT, plan of care and discharge planning. Once positioned back in bed the Pt was noted to have seizure like activity, ie: R leg shaking, then R arm shaking as well as excess Jean Claude eye blinking and brief period of not responding to orientation questions. RN was already present in the room during event and she was able to page the team and complete full neuro exam following possible seizure. Pt was left supine in bed with all needs met. Education: Educational needs: plan of care, discharge planning, role of OT Barriers to Learning: Acuity of illness/injury. Cognitive limitations. Learning Preference: Auditory. Demonstration. ASSESSMENT Response to Visit: The session was tolerated fair, as evidenced by: possible seizure like activity at the end of the session. Bed alarm was on at end of session. Call [place] was in patient's reach at end of session. Pain: Yes, pain is unchanged from start of today's treatment. PLAN Treatment Frequency, Duration and Interventions: Restorative Occupational Therapy recommended for 5x's a week for 4 weeks Treatment is to include: Therapeutic Activity. Self Care/Home Management. Therapeutic Exercise. Recommended Occupational Therapy Follow Up: Upon acute care discharge, the following is currently recommended: Pending progress anticipate rehab vs home with 23/03 supervision/assistance as needed with ADL's/IADL's. Visit Number: Today's visit is number 2 Program: Neuro (Therapist may be reached on FND) SESSION: Duration: 38 CHARGES: [id number] - CHARGE - OT SELF CARE ADL TRAIN-15 MIN 3 Units - NEURO VISIT 1 Units - ORDER - Occupational Therapy Treatment 1 Units Total treatment minutes: 38.00 Minutes Electronically Signed by: Christine Mares OTR, 04/08/2021 11:51:08 AM * Wenceslao Eisenberg MD - 04/07/2021 10:57 AM EDT General Neurology Progress Note Patient Shawna Markham 1975 PCP Frannie Varghese MD Subjective History of Presenting Illness: No overnight events. MRI negative, transferred from stroke service. On assessmen t she reports that in recent days she has been sleeping more, which she attribut es to doing physical therapy this week. She has been doing PT since her prior st roke, no recent changes. Otherwise no recent provoking factors noted. In regards to the episode she has, she says she kind of remembers what happened. She is ab le to recall watching the Olympics, then yelling her name, otherwise not very clear on what happened. No prior history of seizures or staring episodes Review of Systems Negative except as noted in HPI Home Medications Medication Sig Admelog SoloStar 100 UNIT/ML Subcutaneous Solution Pen-injector Inject 1 pen int o the skin Three times daily before meals 8U breakfast, 10U at lunch, 10 at dinn er amLODIPine Besylate 2.5 MG Oral Tablet (NORVASC) Take 5 mg by mouth daily Aspercreme Max Roll-On 16 % External Liquid (Menthol (Topical Analgesic)) Apply 1 Application topically Four times daily as needed aspirin 325 MG tablet Take 325 mg by mouth daily atorvastatin (LIPITOR) 80 MG tablet Take 1 tablet by mouth every evening B-2 100 MG Oral Tablet (RIBOFLAVIN) Take 2 tablets by mouth daily Blood Glucose Monitoring Suppl (BeSmart BLOOD GLUCOSE) w/Device KIT Use as directed. To test blood glucose 4x daily. Dx:E11.65 ezetimibe (ZETIA) 10 MG tablet Take 10 mg by mouth daily fluticasone (FLONASE) 50 MCG/ACT nasal spray 1 spray by Nasal route as needed folic acid (FOLVITE) 1 MG tablet Take 1 mg by mouth daily Gabapentin 300 MG Oral Capsule (Neurontin) Take 3 capsules by mouth nightly glipiZIDE 5 MG Oral Tablet (GLUCOTROL) Take 5 mg by mouth Two times daily before breakfast and dinner ketorolac (ACULAR) 0.5 % ophthalmic solution Place 1 drop into both eyes Four ti mes daily as needed labetalol (NORMODYNE) 200 MG tablet Take 1 tablet by mouth every 12 (twelve) sondra rs Patient taking differently: Take 200 mg by mouth every evening levalbuterol (XOPENEX) 1.25 MG/3ML nebulizer solution Take 1 ampule by nebulizat ion as needed for Wheezing levocetirizine (XYZAL) 5 MG tablet Take 5 mg by mouth daily Lisinopril 5 MG Oral Tablet (PRINIVIL,ZESTRIL) Take 5 mg by mouth daily Magnesium Oxide 400 MG Oral Tablet (MAG-OX) Take 1 tablet by mouth Three times d aily meclizine (ANTIVERT) 25 MG tablet Take 25 mg by mouth Two Times Daily ondansetron (ZOFRAN-ODT) 4 MG disintegrating tablet dissolve ONE TABLET BY MOUTH EVERY FOUR HOURS NEEDED FOR NAUSEA DIRECTED Polyethyl Glycol-Propyl Glycol (SYSTANE) 0.4-0.3 % SOLN Place 1 drop into both e yes Four times daily as needed predniSONE 10 MG Oral Tablet (DELTASONE) 60 mg x1 day, 50mg x 1 day, 40 mg x 1 d ay, 30 mg x day, 20 mg x 1, 10 x 1 day, 5 x 1 day Patient not taking: Reported on 02/14/2021 PRODIGY LANCETS 28G MISC Use as directed. To test blood glucose 4x daily. Dx:E11 .65 Topiramate 50 MG Oral Tablet (TOPAMAX) Take 2 tablets by mouth Two Times Daily TRESIBA FLEXTOUCH 200 UNIT/ML concentrated injection Inject 84 Units into th e skin daily Ubrogepant 50 MG Oral Tablet Take 50 mg by mouth Two times daily as needed Take one for acute headache, can repeat after 2 hours if needed. Allergies: Bee venom, Fioricet [[id number]-ecjl-tugjvyic], and Adhesive tape Objective Temp: [36.6 C (97.9 F)-37.1 C (98.8 F)] 37.1 C (98.7 F) Pulse: [86-107] 90 Resp: [14-20] 18 BP: (100-154)/(67-94) 100/67 SpO2: [95 %-98 %] 95 % O2 Therapy: Room air Physical Exam General Appearance: no acute distress Skin: Normal HEENT: Head: Normocephalic, no lesions, without obvious abnormality. Respiratory: no distress on room air NEUROLOGIC EXAMINATION: Mental status: awake, alert, regards and maintains attention, comprehension inta ct Speech output: Fluent and grammatically correct Cranial nerves: CN II:Left homonymous hemianopia, pupillary reaction to light normal. Visual fie lds full CN III- : All extraocular movements were intact and no nystagmus noted CN V:Facial sensation was normal and symmetric CN VII: Facial expression was symmetric CN VIII: hearing intact Motor Examination * required encouragement during exam to give full strength Bulk: Normal. No atrophy Tone: Normal. Deltoid Biceps Triceps Gr Right 5 5 5 5 Left 4+ 4+ 4+ 5 IP Quad TA Gastroc Right 5 5 5 5 Left 4+ 4+ 5 5 Fasciculations:no fasciculations No abnormal movements observed at rest or with activities. Deep Tendon Reflexes: Biceps BR Knee Ankle Plantar response Right 2+ 2+ 2+ 2+ Flexor Left 2+ 2+ 2+ 2+ Flexor Sensory: Vibration intact distal b/l LE, symmetric. Neglect: None Gait: Deferred Lab Values Results for orders placed or performed during the hospital encounter of 04/06/21 (from the past 24 hour(s)) POCT glucose, docked Collection Time: 04/06/21 5:17 PM Result Value Ref Range POC Glucose 300 (H) 70 - 140 mg/dL POCT glucose, docked Collection Time: 04/06/21 10:06 PM Result Value Ref Range POC Glucose 320 (H) 70 - 140 mg/dL Basic Metabolic Panel Collection Time: 04/07/21 1:13 AM Result Value Ref Range Bicarbonate 17 (L) 22 - 29 mmol/L Chloride 102 98 - 107 mmol/L Creatinine 1.39 (H) 0.50 - 0.90 mg/dL Glucose 254 (H) 70 - 140 mg/dL Potassium 4.5 3.4 - 5.1 mmol/L Sodium 132 (L) 136 - 145 mmol/L Blood Urea Nitrogen 35 (H) 6 - 20 mg/dL Anion Gap 13 8 - 15 mmol/L Osmolality, Eduardo 290 275.0 - 300.0 mosm/kg BUN/Cre Ratio 25 Calcium 9.3 8.6 - 10.0 mg/dL GFR Non 2008 CDK-EPI 44 (L) >60 mL/min/1.73m2 GFR 2008 CKD-EPI 52 (L) >60 mL/min/1.73m2 CBC and Differential Collection Time: 04/07/21 1:13 AM Result Value Ref Range White Blood Cell 17.1 (H) 4.00 - 10.00 10*3/uL Red Blood Cell 4.13 4.10 - 5.30 10*6/uL Hemoglobin 11.7 11.5 - 15.5 g/dL Hematocrit 35.4 (L) 36.0 - 45.0 % Mean Cell Volume 85.9 80.0 - 96.0 fL Mean Cell Hemoglobin 28.2 27.0 - 33.0 pg Mean Cell Hgb Conc 32.9 32 - 36 g/dL Red Cell Dist Width 14.2 11.5 - 14.5 % Platelet Count 368 150 - 400 10*3/uL Differential Type Automated Diff Neutrophil 62 % Lymphocyte 24 % Monocyte 9 % Eosinophil 4 % Basophil 1 % Abs Neutrophil 10.77 (H) 1.80 - 7.00 10*3/uL Abs Lymphocyte 4.06 (H) 1.20 - 4.00 10*3/uL Abs Monocyte 1.46 (H) 0.00 - 0.80 10*3/uL Abs Eosinophil 0.66 (H) 0.00 - 0.50 10*3/uL Abs Basophil 0.11 0.00 - 0.20 10*3/uL Nucleated Red Blood Cells 0 0 - 0 /100 POCT glucose, docked Collection Time: 04/07/21 8:26 AM Result Value Ref Range POC Glucose 214 (H) 70 - 140 mg/dL POCT glucose, docked Collection Time: 04/07/21 12:38 PM Result Value Ref Range POC Glucose 346 (H) 70 - 140 mg/dL Imaging CT Head without Contrast Result Date: 04/06/2021 IMPRESSION: 1. No acute intracranial hemorrhage or acute territorial infarct. 2. Encephalomalacia within the right SHEET METAL FABRICATOR distribution. Old lacunar type infarct s within bilateral basal ganglia and left thalamus, unchanged. MR Brain without Contrast Result Date: 04/06/2021 IMPRESSION: 1. No acute cerebral or cerebellar infarct. 2. Old cerebral infarc t in the right occipital lobe. 3. Old lacunar infarct in the left thalamus. 4. No large vessel occlusion in the [place]. 5. No occlusion in the major arteries of the neck. MR Lumbar Spine without Contrast Result Date: 03/15/2021 IMPRESSION: Largely unremarkable MR study of lumbar spine except early degenerat alexis changes. In particular there is no significant spinal canal or foraminal evette nosis or disc protrusion identified.There is no nerve root compression. MR Angiography Head without Contrast Result Date: 04/06/2021 IMPRESSION: 1. No acute cerebral or cerebellar infarct. 2. Old cerebral infarc t in the right occipital lobe. 3. Old lacunar infarct in the left thalamus. 4. No large vessel occlusion in the [place]. 5. No occlusion in the major arteries of the neck. MR Angiography Neck without Contrast Result Date: 04/06/2021 IMPRESSION: 1. No acute cerebral or cerebellar infarct. 2. Old cerebral infarc t in the right occipital lobe. 3. Old lacunar infarct in the left thalamus. 4. No large vessel occlusion in the [place]. 5. No occlusion in the major arteries of the neck. Impression & Plan Shawna Markham is a 45 y.o. 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 Initially pre sented as stroke code, MRI negative for new infarct. Transferred to general to e valuate for seizures. Routine EEG unremarkable. Patient has no prior history of seizures, but is at risk given her strokes. Will start VEEG to capture an episod e and determine if epileptic. On topiramate for hx migraines, no new AEDs. No pr ovoking factors identified. Active Problems # Possible seizure - VEEG - c/w topiramate 100mg bid (for migraines) # Leukocytosis, stable - chronic, follows with hematology - stable near baseline - no evidence of acute infection # Uncontrolled DM2 - c/w ISS, lantus - c/w gabapentin for neuropathic pain # Hyperlipidemia - c/w atorvastatin, ezetimibe # Hypertension - c/w home lisinopril, labetalol, amlodipine # Hx migraines - c/w MgOx 400mg TID, Vit B2 200mg daily, Topamax 100mg BID # Hx R SHEET METAL FABRICATOR and L MCA strokes - c/w home aspirin, atorvastatin - MRI negative for new stroke DVT Ppx: SCDs, lovenox GI Ppx: None Diet: Diabetic Code Status: Full Patient seen and examined. Case discussed with Dr. Reji Dumont and formulate d the above plan together. Signature: Wenceslao Eisenberg MD - PGY-4 Associated attestation - Reji Dumont MD - 04/07/2021 10:07 PM EDT I saw and evaluated the patient. Discussed with the resident and agree with res idents findings as documented in the resident's note. * Carl Henley, CHARLENE - 04/07/2021 12:35 AM EDT Performed bedside swallow eval, patient drank a glass of water without any cough ing/choking/discomfort. Carl Henley PGY 2 * Nela Olmstead RN - 04/06/2021 10:56 PM EDT Images from the original note were not included. If wound was present on admission, this documentation was sent to attending prov ider for cosignature. * Chasidy Davila MD - 04/06/2021 7:29 AM EDT Images from the original note were not included. Brief vascular neurology progress note Interval events -MRI brain MRA ordered and pending -Echo with bubble ordered and pending -EEG did not show any epileptiform abnormalities -UA negative for infection -Chest x-ray negative for acute findings CT Head without Contrast Result Date: 04/06/2021 1. No acute intracranial hemorrhage or acute territorial infarct. 2. Encephalo malacia within the right SHEET METAL FABRICATOR distribution. Old lacunar type infarcts within bila teral basal ganglia and left thalamus, unchanged. A1c 10.4 LDL 69 TSH 1.6 Assessment and plan Ms. Galvan is a 45 years old female with history of hypertension, hyperlipide grace, diabetes mellitus, prior strokes, MTHFR mutation and CKD who presents with worsening bilateral lower extremity weakness after episode of generalized shakin g on 04/05/2021. Routine EEG is negative for epileptiform discharges. Bilateral lower extremity weakness -MRI, MRA pending -PT OT evaluation -Continue with aspirin 325 mg daily and atorvastatin 80 mg daily We will consult certified lactation educator. Patient was a seen and examined with attending Dr. Adrian Suarez and form ulated above plan together. Associated attestation - Adrian Suarez MD - 04/06/2021 10:27 PM EDT I saw and personally examined the patient with the Stroke team on rounds; I per sonally reviewed the pertinent imaging, ancillary data, discussed the diagnosis, and supervised the formulation of the assessment and plan with the resident chasidy nagel. I agree with the history, exam, assessment and plan outlined in the resident' s note except where stated otherwise in the supplemental documentation by myself . MRI of brain w/o a infarct. Showed old infarct in the right occipital lobe, an d old lacunar infarct in the left thalamus. Dispo: pending documented in this encounter H&P Notes * Porsha Tai MD - 04/06/2021 6:36 AM EDT Stroke History and Physical Patient Shawna Markham 1975 PCP Frannie Varghese MD Chief Complaint/Reason for Admission: lower extremity weakness Subjective History of Presenting Illness: Demographics: 45 y.o. female, left handed Cerebrovascular Risk Factors: DM2, prior stroke, HTN, HLD, MTHFR C677T and A1298 C mutation, CKD Home Antiplatelets: aspirin 325 mg Home Anticoagulants: none Last Known Well: last know to be normal on 04/05/21 0430 Time first Noticed: 0430 Arrival to the ED: 04/05/21 at 1805 Stroke Code Received: n/a Seen by Neurology: 04/06/21 at 0545 at time of consult Preliminary CT scan read at time of scan. Interpretation: no evidence of large infarct or hemorrhage Initial BP: 161/100 Initial Bmg/dL Shawna Markham is a 45 y.o. left-handed woman with PMH of prior strokes i n 2018 in 2019 (right SHEET METAL FABRICATOR, left MCA, with hemorrhagic transformation), DM2, migr aines, HTN, CKD, HLD, MTHFR C677T and J4461C mutation, with baseline left facia l droop, left arm and leg weakness, able to walk without aid. On 04/05/2021 in the morning, the patient was woken up by her going to the bathroom, both partners were unable to go to sleep, and they turned on the TV to watch Olympics. At 0430, the patient suddenly had upper and lower extremity s haking that lasted 15 seconds. She was somewhat aware during this shaking, coul d hear her called her name. 15 more seconds to return back to her basel ine, however she had bilateral arm and leg flaccid weakness. Over the next 45 m [facility]-1hour, her arms returned back to baseline, however her legs remain weak. At baseline she is able to transfer and walk by herself, but now she is barely able to lemon picker her legs to antigravity. The patient came to the emergency department. CT head stat was obtained due to >24 hr since symptom onset, and negative for any hemorrhage. She denies any recent illness symptoms, sick contacts. She denies any saddle an esthesia, urinary or bowel incontinence/obstruction. She obtained MRI lumbar spi ne in 03/14/21 that did not show stenosis or impingement. She does recall for the last few months, while she is sleeping, her RUE occasion ally would shake violently enough to hit herself or hit awake. During t hese taking events, the is able to wake her up by touch, and it resolves . These episodes are becoming more more frequent, occurring every week now. Sarah arias does not have history of teeth grinding, but has broken 2 teeth in the middle of the night about 3 months ago. Does not wake up with urinary incontinence dur ing the night or tongue/cheek bite. Review of Systems All other systems were reviewed and found negative except for those mentioned ab ove and in the HPI. Past Medical History Hypertension Asthma Heartburn Diabetes mellitus Stroke Acute ischemic right MCA stroke Chronic kidney disease Hyperlipidemia Past Surgical History SECTION CHOLECYSTECTOMY HERNIA REPAIR Speech issue Family History Her family history includes COPD in her mother; Cancer in her paternal aunt and paternal grandfather; Diabetes in her father and paternal aunt; Heart disease in her maternal grandfather, maternal grandmother, maternal uncle, mother, paternal aunt, and paternal grandmother; Heart failure in her mother; Hypertension in her father, mother, and paternal aunt; No Known Problems in her brother and sister; Stroke in her paternal grandmother. Social History She is . She lives with their family. Her baseline functional status is f air and she requires help to perform ADLS. She reports that she has never smoke d. She has never used smokeless tobacco. She reports that she does not drink alc ohol and does not use drugs. Home Medications Medication Sig Admelog SoloStar 100 UNIT/ML Subcutaneous Solution Pen-injector Inject 1 pen int o the skin Three times daily before meals 8U breakfast, 10U at lunch, 10 at dinn er amLODIPine Besylate 2.5 MG Oral Tablet (NORVASC) Take 5 mg by mouth daily Aspercreme Max Roll-On 16 % External Liquid (Menthol (Topical Analgesic)) Apply 1 Application topically Four times daily as needed aspirin 325 MG tablet Take 325 mg by mouth daily atorvastatin (LIPITOR) 80 MG tablet Take 1 tablet by mouth every evening B-2 100 MG Oral Tablet (RIBOFLAVIN) Take 2 tablets by mouth daily Blood Glucose Monitoring Suppl (BeSmart BLOOD GLUCOSE) w/Device KIT Use as directed. To test blood glucose 4x daily. Dx:E11.65 ezetimibe (ZETIA) 10 MG tablet Take 10 mg by mouth daily fluticasone (FLONASE) 50 MCG/ACT nasal spray 1 spray by Nasal route as needed folic acid (FOLVITE) 1 MG tablet Take 1 mg by mouth daily Gabapentin 300 MG Oral Capsule (Neurontin) Take 3 capsules by mouth nightly glipiZIDE 5 MG Oral Tablet (GLUCOTROL) Take 5 mg by mouth Two times daily before breakfast and dinner ketorolac (ACULAR) 0.5 % ophthalmic solution Place 1 drop into both eyes Four ti mes daily as needed labetalol (NORMODYNE) 200 MG tablet Take 1 tablet by mouth every 12 (twelve) sondra rs Patient taking differently: Take 200 mg by mouth every evening levalbuterol (XOPENEX) 1.25 MG/3ML nebulizer solution Take 1 ampule by nebulizat ion as needed for Wheezing levocetirizine (XYZAL) 5 MG tablet Take 5 mg by mouth daily Lisinopril 5 MG Oral Tablet (PRINIVIL,ZESTRIL) Take 5 mg by mouth daily Magnesium Oxide 400 MG Oral Tablet (MAG-OX) Take 1 tablet by mouth Three times d aily meclizine (ANTIVERT) 25 MG tablet Take 25 mg by mouth Two Times Daily ondansetron (ZOFRAN-ODT) 4 MG disintegrating tablet dissolve ONE TABLET BY MOUTH EVERY FOUR HOURS NEEDED FOR NAUSEA DIRECTED Polyethyl Glycol-Propyl Glycol (SYSTANE) 0.4-0.3 % SOLN Place 1 drop into both e yes Four times daily as needed predniSONE 10 MG Oral Tablet (DELTASONE) 60 mg x1 day, 50mg x 1 day, 40 mg x 1 d ay, 30 mg x day, 20 mg x 1, 10 x 1 day, 5 x 1 day Patient not taking: Reported on 02/14/2021 PRODIGY LANCETS 28G MISC Use as directed. To test blood glucose 4x daily. Dx:E11 .65 Topiramate 50 MG Oral Tablet (TOPAMAX) Take 2 tablets by mouth Two Times Daily TRESIBA FLEXTOUCH 200 UNIT/ML concentrated injection Inject 84 Units into th e skin daily Ubrogepant 50 MG Oral Tablet Take 50 mg by mouth Two times daily as needed Take one for acute headache, can repeat after 2 hours if needed. Allergies: Bee venom, Fioricet [[id number]], and Adhesive tape Objective Temp: [37 C (98.6 F)-37.1 C (98.8 F)] 37.1 C (98.8 F) Pulse: [102-114] 105 Resp: [16-19] 19 BP: (138-166)/(88-102) 140/88 SpO2: [95 %-97 %] 97 % O2 Therapy: Room air Physical Exam General Appearance: middle aged woman, laying in bed, with sunglasses on Skin: Normal HEENT: Head: Normal, normocephalic, atraumatic. Cardiovascular: normal sinus rhythm Respiratory: breathing on room air comfortably Gastrointestinal: Abdomen soft, non-tender Extremities: extremities normal, atraumatic, no cyanosis or edema Neurological Exam NIH Stroke Scale: Category Patient Score 1a. Level of consciousness (Alert, drowsy, etc.) 0 - Alert 1b. LOC Questions (Month, age) 2 - Neither question correct 1c. LOC Commands (Open, close eyes; make fist, let go) 0 - Performs both tasks correctly 2. Best Gaze (Eyes open- patient follows finger or face) 0 - Normal 3. Visual (Introduce visual stimulus to patients visual field quadrants) 3 - Bilat eral hemianopia or blind 4. Facial palsy (Show teeth, raise eyebrows and squeeze eyes shut) 1 - Minor paralysis 5a. Motor Arm left 5b. Motor Arm right (Elevate extremity to 90 and score drift/movement) Left: 0- No drift (exten ds arm 10sec. w/o drift) Right: 0- No drift (extends arm 10sec. w/o drift) 6a. Motor Leg left 6b. Motor Leg right (Elevate extremity to 30 and score drift/movement) Left: 2- Some effort aga inst gravity (falls < 5 sec) Right: 1- Drift (before 5 sec) 7. Limb Ataxia (Finger-nose, heel-fajardo) 0 - Absent 8. Sensory (Pin prick to face, arm trunk, and leg- compare side to side) 1 - Mild to moder ate sensory loss 9. Best Language (Name items, describes a picture, reads sentence) 0 - No aphasia 10. Dysarthria (Evaluate speech clarity by patient repeating listed words) 1 - Mild to moderat e dysarthria 11. Extinction and Inattention (Use information from prior testing to identify neglect or double simultaneous s timuli testing) 0 - No neglect Total Score: 11 NEUROLOGIC EXAMINATION: Mental status: Level of alertness: alert Attention: Able to focus and sustain attention. Regards examiner. Language: Auditory comprehension:Intact Speech output: slightly dysarthric and slow speech, baseline Naming: Preserved Cranial nerves: CN II:Direct pupillary reaction to light normal. Visual harkins restricted bilate rally, complete left hemifield, significant difficulty with peripheral vision in R eye due to diabetic retinopathy CN III- : All extraocular movements were intact and no nystagmus noted CN V: Impaired pinprick over right V13 CN VII: Mild left nasolabial flattening CN VIII: Finger rub response was normal bilaterally CN IX: Uvula elevates bilaterally CN XI: Shoulder shrug normal CN XII: Tongue protrusion was midline Sensory exam: Decreased pinprick sensation over left upper extremity and left lower extremity Motor exam: Proximal Distal Right Upper extremity 5 5 Left Upper extremity 4 4 Proximal Distal Right Lower extremity 5 5 Left Lower extremity 4 1 Cerebellar Exam: Finger to nose Right Upper extremity intact Left Upper extremity intact HKS Right Lower extremity deferred Left Lower extremity deferred Deep Tendon Reflexes: Biceps Triceps BR Knee Ankle Plantar response Right 3 3 3 3 1 Flexor Left 3 3 3 3 1 Flexor Gait: deferred Diagnostics MR Lumbar Spine without Contrast Result Date: 03/15/2021 IMPRESSION: Largely unremarkable MR study of lumbar spine except early degenerat alexis changes. In particular there is no significant spinal canal or foraminal evette nosis or disc protrusion identified.There is no nerve root compression. Impression & Plan Shawna Markham is a 45 y.o. left-handed woman with PMH of prior strokes i n 2018 in 2019 (right SHEET METAL FABRICATOR, left MCA, with hemorrhagic transformation), DM2, migr aines, HTN, CKD, HLD, MTHFR C677T and [id number] mutation, with baseline left facia l droop, left arm and leg weakness, able to walk without aid. Current NIHSS is 11 for symptoms mentioned above. Most are her baseline, except for LE weakness L>R. The CT scan of the head shows no acute ischemic stroke or hemorrhage. Given her NIHSS score and CT head she is not a candidate for IV thrombolytic therapy. Exclusion criteria have been reviewed. Patient does not meet criteria for IV thrombolytic therapy due to onset time > 4.5 hours . The patient was evaluated for mechanical endovascular stroke intervention and wa s deemed ineligible symptom onset >24 hr. Diagnosis: Recrudescence of old stroke vs acute ischemic stroke Etiology: stroke of other determined etiology Plan 1. The patient will be admitted to stroke service on telemetry. 2. She will be continued ASA 325 mg. Previous verify ASA is wnl 3. Her systolic blood pressure will be kept between normal range until we are sure the cerebrovasculature is patent. 4. A full stroke work up will be done including:MRI and MRA without contrast of the brain to evaluate for any evidence of infarct, ECHO with bubble study, seco ndary stroke risk factor prevention labs including: lipid panel, HbA1C, TSH and place patient on telemetry to evaluate for any arrhythmias. 5. A swallow evaluation will be performed and if the patient passes she will be started on a cardiac diet, diabetic diet and low fat, low cholesterol diet 6. Will be evaluated by physical therapist and occupational therapist #Possible seizure -routine EEG in the am, before deciding if patient needs AED #leukocytosis -possible infectious etiology, current labs still pending -Follow-up UA, chest x-ray, sputum -BLE dopplers #Hx of Right parieto-occipital SHEET METAL FABRICATOR territory infarct #Hx of Right MCA stroke -C/w aspirin -C/w Atorvastatin #Type 2 diabetes mellitus Patient takes insulin degludec 77 units at home along with sliding scale insulin , Metformin, glipizide -52u + MDSS while admitted -f/u A1C #Hx neuropathic pain -C/w home gabapentin, additional 300 mg dose given in the morning given missed p m dose #Hx of Hypertension -Continue with lisinopril 10 mg daily -Continue with labetalol 200 mg daily -C/w amlodipine #Hx Hyperlipidemia -Continue with atorvastatin 80 mg daily Hx Chronic Migraine Headaches -Continue with magnesium oxide 400 mg TID -Continue with riboflavin 200 mg daily -Continue with Topamax 100 mg BID -Receives Botox Injections at [facility] DVT Prophylaxis: SCD's while in bed GI Prophylaxis: Not Indicated Code Status: Full Code presumed Patient seen and examined. Case discussed with Dr. Suarez and formulated the above plan together. Associated attestation - Adrian Suarez MD - 04/06/2021 10:24 PM EDT I saw and personally examined the patient with the Stroke team on rounds; I per sonally reviewed the pertinent imaging, ancillary data, discussed the diagnosis, and supervised the formulation of the assessment and plan with the resident chasidy nagel. I agree with the history, exam, assessment and plan outlined in the resident' s note except where stated otherwise in the supplemental documentation by myself . Still c/o bilateral low extremity weakness. Overall presentation not consisten t with stroke. Will r/o seizure. documented in this encounter Procedure Notes * Elver Redding MD - 04/06/2021 12:40 PM EDT Associated Order(s): EEG ROUTINE STUDY EEG REPORT NUMBER [id number] DATE OF PROCEDURE: 04/06/2021 HISTORY: Shawna Markham is a 45 y.o. female with Patient Active Problem List Diagnosis Essential hypertension Asthma Type 2 diabetes mellitus with diabetic nephropathy, with long-term curren t use of insulin Previous section Class 2 obesity in adult large subacute infarct of the right occipital lobe. Hemianopia, homonymous, left Chronic migraine Long-term insulin use Heterozygous MTHFR mutation [id number] Heterozygous MTHFR mutation C677T Leukocytosis Hyperhomocysteinemia Abnormal brain MRI Intractable migraine without aura and without status migrainosus Functional neurological symptom disorder with mixed symptoms Magnetic resonance imaging of brain abnormal Cryptogenic stroke Status post placement of implantable loop recorder Aortic atherosclerosis Hyperlipidemia Leg weakness, bilateral EEG is to evaluate for seizures and/or epilepsy. No current facility-administered medications on file prior to encounter. Current Outpatient Medications on File Prior to Encounter Medication Sig Dispense Refill Admelog SoloStar 100 UNIT/ML Subcutaneous Solution Pen-injector Inject 1 pen into the skin Three times daily before meals 8U breakfast, 10U at lunch, 10 at dinner amLODIPine Besylate 2.5 MG Oral Tablet (NORVASC) Take 5 mg by mouth daily Aspercreme Max Roll-On 16 % External Liquid (Menthol (Topical Analgesic)) Apply 1 Application topically Four times daily as needed 118 mL 0 aspirin 325 MG tablet Take 325 mg by mouth daily atorvastatin (LIPITOR) 80 MG tablet Take 1 tablet by mouth every evening 30 tablet 11 B-2 100 MG Oral Tablet (RIBOFLAVIN) Take 2 tablets by mouth daily 180 tab let 3 Blood Glucose Monitoring Suppl (BeSmart BLOOD GLUCOSE) w/Device KIT Use as directed. To test blood glucose 4x daily. Dx:E11.65 1 kit 0 ezetimibe (ZETIA) 10 MG tablet Take 10 mg by mouth daily fluticasone (FLONASE) 50 MCG/ACT nasal spray 1 spray by Nasal route as ne eded 4 folic acid (FOLVITE) 1 MG tablet Take 1 mg by mouth daily 3 Gabapentin 300 MG Oral Capsule (Neurontin) Take 3 capsules by mouth night ly 270 capsule 3 glipiZIDE 5 MG Oral Tablet (GLUCOTROL) Take 5 mg by mouth Two times daily before breakfast and dinner ketorolac (ACULAR) 0.5 % ophthalmic solution Place 1 drop into both eyes Four times daily as needed labetalol (NORMODYNE) 200 MG tablet Take 1 tablet by mouth every 12 (twel ve) hours (Patient taking differently: Take 200 mg by mouth every evening ) 60 t ablet 5 levalbuterol (XOPENEX) 1.25 MG/3ML nebulizer solution Take 1 ampule by ne bulization as needed for Wheezing levocetirizine (XYZAL) 5 MG tablet Take 5 mg by mouth daily 5 Lisinopril 5 MG Oral Tablet (PRINIVIL,ZESTRIL) Take 5 mg by mouth daily Magnesium Oxide 400 MG Oral Tablet (MAG-OX) Take 1 tablet by mouth Three times daily 180 tablet 3 meclizine (ANTIVERT) 25 MG tablet Take 25 mg by mouth Two Times Daily ondansetron (ZOFRAN-ODT) 4 MG disintegrating tablet dissolve ONE TABLET B Y MOUTH EVERY FOUR HOURS NEEDED FOR NAUSEA DIRECTED 5 Polyethyl Glycol-Propyl Glycol (SYSTANE) 0.4-0.3 % SOLN Place 1 drop into both eyes Four times daily as needed predniSONE 10 MG Oral Tablet (DELTASONE) 60 mg x1 day, 50mg x 1 day, 40 m g x 1 day, 30 mg x day, 20 mg x 1, 10 x 1 day, 5 x 1 day (Patient not taking: Re ported on 02/14/2021) 22 tablet 0 PRODIGY LANCETS 28G [facility] Use as directed. To test blood glucose 4x daily. Dx:E11.65 150 each 5 Topiramate 50 MG Oral Tablet (TOPAMAX) Take 2 tablets by mouth Two Times Daily 360 tablet 3 TRESIBA FLEXTOUCH 200 UNIT/ML concentrated injection Inject 84 Units into the skin daily 5 Ubrogepant 50 MG Oral Tablet Take 50 mg by mouth Two times daily as neede d Take one for acute headache, can repeat after 2 hours if needed. 10 tablet 11 Scheduled Meds: amLODIPine 5 mg Oral Daily aspirin 325 mg Oral Daily atorvastatin 80 mg Oral QPM ezetimibe 10 mg Oral Daily folic acid 1 mg Oral Daily gabapentin 900 mg Oral Nightly insulin glargine 52 Units Subcutaneous Nightly insulin lispro 1-16 Units Subcutaneous 3 x Daily with Meals labetalol 200 mg Oral QPM levocetirizine 5 mg Oral Daily lisinopril 5 mg Oral Daily magnesium oxide 400 mg Oral TID topiramate 100 mg Oral BID Vitamin B-2 200 mg Oral Nightly Continuous Infusions: PRN Meds:.dextrose, glucagon (human recombinant), glucose, meclizine, perflutren lipid microspheres TECHNICAL DESCRIPTION: This digital EEG was recorded using 2 EKG and 21 scalp a nd/or ear electrodes. It was reviewed in referential and bipolar montages follo wing reformatting in the [employer] electrode placement system. In her best awake and alert state, the background includes some low amplitude po sterior activity that attenuates with eye opening. No clear drowsiness, or sleep were seen. Hyperventilation is omitted due to COVID 19. Photic stimulation with flash frequencies of 2-21 Hz is associated with low ampl itude, photic driving, best seen at 6 Hz to 18 Hz. EKG review reveals tachycardia. CLINICAL IMPRESSION: This portable EEG done in the awake state is is abnormal due to : Low amplitude background with no clear PDR. There were no clear epileptiform abnormalities seen. documented in this encounter ED Notes * Arleen Peterson RN - 04/06/2021 8:19 PM EDT Report called to Elizabeth Farris RN * Teresa Fraser RN - 04/06/2021 11:37 AM EDT eeg in progress * Franca Soares RN - 04/06/2021 7:[address] Tai to cancel labetolol order for this time. Vs stable. * Franca Soares RN - 04/06/2021 5:45 AM EDT Neuro remains in room. * Franca Soares RN - 04/06/2021 5:29 AM EDT Neuro in room * Trenton Denis RN - 04/05/2021 7:30 PM EDT Arrives from home with present, has a history of a previous CVA and her legs were weak after that but her states that she had an episode of Arms and Legs shaking lasting just a few seconds that cased her to loose the use of her Arms and Legs which resolved after about 45 minutes. After that situation re solved her Legs are now weaker than they were previously. She is also visually i mpaired which is ongoing. documented in this encounter Miscellaneous Notes * Significant Event - Bhavya Power RN - 04/09/2021 1:49 AM EDT This insurance underwriter sales was called into the patient's room by vEEG quick technician. Upon enterin g the room, the patient was hitting her chest in a repeated motion with her righ t arm. She did not respond to verbal stimuli at at time, but pulled away from p ainful peripheral stimuli. When pupils were checked, they were non-reactive. A pprox. 15 seconds later, patient began to follow the pen light with her eyes and pupils became reactive again. Pt continued to be unable to respond to verbal q uestions for approx 20 more seconds and then was able to answer orientation ques tions. From the time this insurance underwriter sales entered the room to the patient being able to respond was about 90 seconds. * Plan of Care - Bhavya Power RN - 04/09/2021 12:05 AM EDT Problem: Glucose Imbalance Goal: Clinical indication of glucose balance is achieved Outcome: Progressing Goal: Patient's discharge needs are met Outcome: Progressing Problem: Sensory Perception is less than 4 (< 4) Goal: Improve Sensory Perception Outcome: Progressing Problem: Moisture is less than 4 (< 4) Goal: Eliminate Moisture Outcome: Progressing Problem: Activity is less than 4 (< 4) Goal: Improve Activity Outcome: Progressing Problem: Mobility is less than 4 (< 4) Goal: Improve Mobility Outcome: Progressing Problem: Nutrition is Less than 3 (< 3) Goal: Improve Nutrition Outcome: Progressing Problem: Friction Shear is less than 3 (< 3) Goal: Eliminate Friction Shear Outcome: Progressing Problem: Risk for Falls Goal: No falls during hospitalization Description: Patient will not fall during hospitalization. Outcome: Progressing Problem: Knowledge Deficit Goal: Knowledge - personal safety Description: Patient will verbalize understanding of fall prevention. Outcome: Progressing Problem: Neurological Deficit Goal: Neurological status is stable or improving Description: Monitor and assess patient's level of consciousness, motor function , sensory function, and level of assistance needed for ADLs. Monitor and report changes from baseline. Collaborate with interdisciplinary team to initiate plan and implement interventions as ordered. Outcome: Progressing Problem: Activity Intolerance/Impaired Mobility Goal: Mobility/activity is maintained at optimum level for patient Description: Assess and monitor patient barriers to mobility and need for jasmin tive/adaptive devices. Assess patient's emotional response to limitations. Santosh salazarate with interdisciplinary team and initiate plans and interventions as order ed. Outcome: Progressing Problem: Communication Impairment Goal: Ability to express needs and understand communication Description: Assess patient's communication skills and ability to understand inf ormation. Patient will demonstrate use of effective communication techniques, a lternative methods of communication and understanding even if not able to speak. Outcome: Progressing Problem: Aspiration Precautions Goal: Non-ventilated patient's risk of aspiration is minimized Description: Assess and monitor vital signs, respiratory status, and labs (WBC). Monitor for signs of aspiration (tachypnea, cough, rales, wheezing, cyanosis, fever). Outcome: Progressing Problem: Nutrition Goal: Nutritional status is improving Description: Monitor and assess patient for malnutrition (ex- brittle hair, brui ses, dry skin, pale skin and conjunctiva, muscle wasting, smooth red tongue, and disorientation). Collaborate with interdisciplinary team and initiate plan and interventions as ordered. Monitor patient's weight and dietary intake as ordere d or per policy. Utilize nutrition screening tool and intervene per policy. Dete rmine patient's food preferences and provide high-protein, high-caloric foods as appropriate. Outcome: Progressing Problem: Comorbidity: Increased stroke risk related to dyslipidemia Goal: Patient cholestrol levels will be monitored Outcome: Progressing Goal: Knowledge deficit on high cholestrol treatment and prevention Outcome: Progressing Goal: Patient's discharge needs are met Outcome: Progressing Problem: Comorbidity: Increased stroke risk related to diabetes mellitus Goal: Clinical indication of glucose balance is achieved Outcome: Progressing Goal: Knowledge deficit of disease process Outcome: Progressing Goal: Patient's discharge needs are met Outcome: Progressing Problem: Comorbidity: Increased stroke risk related to hypertension Goal: Blood pressure is within ordered parameters Outcome: Progressing Goal: Knowledge deficit of disease process Outcome: Progressing Goal: Patient's hypertension discharge needs are met Outcome: Progressing Problem: Aspiration Precautions Goal: Ventilated patient's risk of aspiration is minimized Description: Assess and monitor vital signs, respiratory status, airway cuff pre ssure, and labs (WBC). Monitor for signs of aspiration (tachypnea, cough, rales , wheezing, cyanosis, fever). Outcome: [employer] Service Technician Error * Assessment & Plan Note - Lois Costello, PT - 04/08/2021 3:50 PM EDT Physical Therapy Acute Care Neurology Examination Medical Diagnosis: rule out seizure History of Present Illness: patient admitted with sudden onset of upper and lower extremity shaking that lasted 15 seconds. She was somewhat aware during this shaking, could hear her called her name. 15 more seconds to return back to her baseline, however she had bilateral arm and leg flaccid weakness. Over the next 45 minutes-1hour, her arms returned back to baseline, however her legs remain weak. Date of Onset: 04/05/21 Date of Admission: 04/06/2021 3:44:00 AM Demographics: Age: 45 Gender: Female Past Medical History and Radiographics: Significant rehabilitation considerations: Hypertension, hyperlipidemia, asthma, heartburn, Diabetes mellitus type two, migraines, , CHOLECYSTECTOMY, HERNIA REPAIR, stroke- right parieto-occipital SHEET METAL FABRICATOR territory infarct, lacunar infarcts left turk radiata, left thalamus and left basal ganglia Rehabilitation Precautions/Restrictions: Allow ROM , OOB to chair SUBJECTIVE Mental Status: Orientation:Patient is not alert and oriented as follows: patient knows name, place, year. patient thought it was February Following:Able to follow 2 step commands. Prior Functional Level: The patient reported the premorbid level of function was patient uses a seeing cane in the community. in [facility] home she doesnt use anything because she knows her home. patient uses wheelchair for long distances in the community. patient uses a lift chair when sitting in living room. Height of bed is high and patient able to get in and out of bed independently. patient is receiving outpatient PT 2-3x/week, patient is working on balance and shoulder at PT Occupation: unemployed, patient enjoys spending time with her family Social History: Patient does not live alone. Patient lives with and 3 children (ages 18, 14 and 10) . If needed: Family member is willing to assist. 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 There is no ramp to enter the home. Home is a single level. Description of bed and bathroom accessibility: patient is set up on first floor. (+) bedroom and bathroom (+) walk in shower (+) shower chair and grab bars . Equipment Owned: Manual wheelchair. Shower chair. Grab bars in tub/shower. seeing cane lift chair Pain: Patient currently complains of pain. Location: head . Patient describes pain as Aching. Verbal Scale: Patient reports a pain level of 2 out of 10. Pain Medication Today: no. OBJECTIVE General Observation: patient received supine in bed HOB elevated (+) (+) continuous EEG (+) teletmry NAD Bed alarm was on at start of session. Seizure pads present at start of session. Special Tests: baseline visual deficits Range of Motion: right UE: shoulder flexion to approximately 80 degrees secondary to rotator cuff injury, otherwise WFL. left UE: WFL. patient requires increased time to perform AROM in bilateral UE and LE. bilatera LE: ankle dorsiflexion to neutral, planterflexion WFL, knee flexion bilaterally approximately 45 degrees supine in bed, able to ahieve full ROM when LE umweighted from bed. knee and hip WFL. Strength: right UE: shoulder flexion is 3-, elbow and optical technician is 3+. left UE:3+ throughout. bilateral LE: ankle dorsiflexion is 2+, planterflexion is 3+, knee flexion is 2-, knee extension is at least 2+, hip is at least 2 Skin Integrity Screen: grossly intact Tone/Spasticity: No relevant impairments. Sensation: Grossly intact. Coordination: Not tested. Functional Mobility: Bed Mobility: Patient moves from supine to/from sit requiring moderate assistance. of 1 person Transfers: Patient transferred bed to chair to the right requiring moderate assistance of 1 person. Patient used the following equipment: Arms of chair. patient with uncontrolled descent to chair Locomotion/Wheelchair: Not assessed. Locomotion/Gait/Ambulation: Not assessed. Stairs: Not assessed. Vital Signs: Not assessed. Balance: Static balance in a seated position: fair-/fair. pateint able to sit without support after 3 minutes and facilaiting scooting to Edge and anterior weight shift at trunk Endurance: Not assessed. Outcome Measures: [facility] "6 Clicks" Basic Mobility Inpatient Short Form: Turning over in bed: Unable to perform (1) Sitting down on and standing up from a chair with arms: Unable to perform (1) Moving from lying on back to sitting on the side of the bed: Unable to perform (1) Moving to and from a bed to a chair (including a wheelchair): A lot of help (2) Walking in hospital room: Total assistance (1) Climbing 3-5 steps with a railing: Total assistance (1) Raw Score 7 /24. Interventions: None provided today. Education: Educational needs: Plan of care. Role of PT in neurorehabilitation. Safe mobility. Rehabilitation techniques and procedures. Barriers to Learning: Acuity of illness/injury. Cognitive limitations. Learning Preference: Auditory. Mode of education provided: Explanation. Audience: Patient. Family. Education Provided: Plan of care. Role of PT in neurorehabilitation. Adaptive physical strategies. Safe mobility. Rehabilitation techniques and procedures. Response: Needs practice/reinforcement. ASSESSMENT Moderate Complexity Evaluation: A history of present problem with 1-2 personal factors and/or comorbidities that impact the plan of care. An examination of body system(s) using standardized tests and measures addressing a total of 3 or more elements from any of the following: body structures and functions, activity limitations, and/or participation restrictions. An evolving clinical presentation with changing characteristics. Clinical decision-making of moderate complexity using standardized patient assessment instrument and/or measurable assessment of functional outcome. Response to Evaluation: The session was tolerated fair, as evidenced by: pateint with gernalized weakness limiting mobility at this time Chair alarm was on at end of session. Pain: Patient has no complaints of pain currently. Other Rehabilitation Considerations: Patient's progress may be impaired by the following potential barriers: Medical condition. Architectural Barriers in home. Support Structure: Support structure is good. patient reported she has a friend that doesnt work that can assist as necessary as well Strengths: Social/family support. Patient Goals: Patient's functional goals: to go home The patient's therapy goals are based on limitations/impairments in the following areas: Balance. Bed Mobility. Gait. Stairs/Curbs/Environmental barrier negotiation. Strength. Transfers. Wheelchair Mobility. Short Term Goals: 1. patient will transfer supine to and from sit modified indepednent in 1 week 2. patinet will transfer bed to and from chair modified independent in 1 week 3. patient will ambulate 50 feet with least restricitive assistive device min assist in 1 week Usp Goals: 1. patient will ambulate 150 feet with seeing eye cane modified independent in 2 weeks 2. patient will ambulate up and down 5 steps with handrail modified idnependent in 2 weeks PLAN Treatment Frequency, Duration and Interventions: Restorative Physical Therapy is recommended for 5x/week Treatment is to include: Gait Training. Neuromuscular Re-education. Therapeutic Activity. Therapeutic Exercise. Wheelchair Management Self Care/Home Management. Equipment Provided: None issued this visit. Equipment Recommended: To be assessed. Recommended Physical Therapy Follow Up: Upon acute care discharge, the following is currently recommended: Anticipate patient will have inpatient rehab needs beyond the acute stay. Recommended Consults: None currently. Development of Plan of Care: Participants included: Patient and family. Nurse. Goal Review Visit Number: 1 Visit Number: Today's visit is number 1 Program: Neuro (Therapist may be reached on FND) SESSION: Duration: 45 CHARGES: - 0 Units - 0 Units - 0 Units - 0 Units 65013 - CHARGE - PT EVAL; MODERATE COMPLEXITY 3 Units - NEURO VISIT 1 Units - ORDER - Physical Therapy Treatment 1 Units - ORDER - PHYSICAL THERAPY CONSULT 1 Units Total treatment minutes: 45.00 Minutes Electronically Signed by: Lois Costello PT, 04/08/2021 4:04:11 PM * Plan of Care - Nela Olmstead RN - 04/07/2021 11:36 PM EDT Problem: Glucose Imbalance Goal: Clinical indication of glucose balance is achieved Outcome: Progressing Goal: Patient's discharge needs are met Outcome: Progressing Problem: Sensory Perception is less than 4 (< 4) Goal: Improve Sensory Perception Outcome: Progressing Problem: Moisture is less than 4 (< 4) Goal: Eliminate Moisture Outcome: Progressing Problem: Activity is less than 4 (< 4) Goal: Improve Activity Outcome: Progressing Problem: Mobility is less than 4 (< 4) Goal: Improve Mobility Outcome: Progressing Problem: Nutrition is Less than 3 (< 3) Goal: Improve Nutrition Outcome: Progressing Problem: Friction Shear is less than 3 (< 3) Goal: Eliminate Friction Shear Outcome: Progressing Problem: Risk for Falls Goal: No falls during hospitalization Description: Patient will not fall during hospitalization. Outcome: Progressing Problem: Knowledge Deficit Goal: Knowledge - personal safety Description: Patient will verbalize understanding of fall prevention. Outcome: Progressing Problem: Neurological Deficit Goal: Neurological status is stable or improving Description: Monitor and assess patient's level of consciousness, motor function , sensory function, and level of assistance needed for ADLs. Monitor and report changes from baseline. Collaborate with interdisciplinary team to initiate plan and implement interventions as ordered. Outcome: Progressing Problem: Activity Intolerance/Impaired Mobility Goal: Mobility/activity is maintained at optimum level for patient Description: Assess and monitor patient barriers to mobility and need for jasmin tive/adaptive devices. Assess patient's emotional response to limitations. Collbekah salazarate with interdisciplinary team and initiate plans and interventions as order ed. Outcome: Progressing Problem: Communication Impairment Goal: Ability to express needs and understand communication Description: Assess patient's communication skills and ability to understand inf ormation. Patient will demonstrate use of effective communication techniques, a lternative methods of communication and understanding even if not able to speak. Outcome: Progressing Problem: Aspiration Precautions Goal: Non-ventilated patient's risk of aspiration is minimized Description: Assess and monitor vital signs, respiratory status, and labs (WBC). Monitor for signs of aspiration (tachypnea, cough, rales, wheezing, cyanosis, fever). Outcome: Progressing Goal: Ventilated patient's risk of aspiration is minimized Description: Assess and monitor vital signs, respiratory status, airway cuff pre ssure, and labs (WBC). Monitor for signs of aspiration (tachypnea, cough, rales , wheezing, cyanosis, fever). Outcome: Progressing Problem: Nutrition Goal: Nutritional status is improving Description: Monitor and assess patient for malnutrition (ex- brittle hair, brui ses, dry skin, pale skin and conjunctiva, muscle wasting, smooth red tongue, and disorientation). Collaborate with interdisciplinary team and initiate plan and interventions as ordered. Monitor patient's weight and dietary intake as ordere d or per policy. Utilize nutrition screening tool and intervene per policy. Dete rmine patient's food preferences and provide high-protein, high-caloric foods as appropriate. Outcome: Progressing Problem: Comorbidity: Increased stroke risk related to dyslipidemia Goal: Patient cholestrol levels will be monitored Outcome: Progressing Goal: Knowledge deficit on high cholestrol treatment and prevention Outcome: Progressing Goal: Patient's discharge needs are met Outcome: Progressing Problem: Comorbidity: Increased stroke risk related to diabetes mellitus Goal: Clinical indication of glucose balance is achieved Outcome: Progressing Goal: Knowledge deficit of disease process Outcome: Progressing Goal: Patient's discharge needs are met Outcome: Progressing Problem: Comorbidity: Increased stroke risk related to hypertension Goal: Blood pressure is within ordered parameters Outcome: Progressing Goal: Knowledge deficit of disease process Outcome: Progressing Goal: Patient's hypertension discharge needs are met Outcome: Progressing * Benefit Check - Juanita Avila - 04/07/2021 3:33 PM EDT [facility] All benefits paid in full with precertification at [phone]. Acute Rehab: and [facility] is in network. SNF: [facility], [facility] are in network. Home Care: [facility], [facility], and [facility] are in network. Home Infusion: [facility], [facility], [place], and [facility] are in network. DME: [facility], [facility], [facility], and [facility] are in network. * Plan of Care - Brett Stewart RN - 04/07/2021 8:45 AM EDT Problem: Glucose Imbalance Goal: Clinical indication of glucose balance is achieved Outcome: Progressing Goal: Patient's discharge needs are met Outcome: Progressing Problem: Sensory Perception is less than 4 (< 4) Goal: Improve Sensory Perception Outcome: Progressing Problem: Moisture is less than 4 (< 4) Goal: Eliminate Moisture Outcome: Progressing Problem: Activity is less than 4 (< 4) Goal: Improve Activity Outcome: Progressing Problem: Mobility is less than 4 (< 4) Goal: Improve Mobility Outcome: Progressing Problem: Nutrition is Less than 3 (< 3) Goal: Improve Nutrition Outcome: Progressing Problem: Friction Shear is less than 3 (< 3) Goal: Eliminate Friction Shear Outcome: Progressing Problem: Risk for Falls Goal: No falls during hospitalization Description: Patient will not fall during hospitalization. Outcome: Progressing Problem: Knowledge Deficit Goal: Knowledge - personal safety Description: Patient will verbalize understanding of fall prevention. Outcome: Progressing Problem: Neurological Deficit Goal: Neurological status is stable or improving Description: Monitor and assess patient's level of consciousness, motor function , sensory function, and level of assistance needed for ADLs. Monitor and report changes from baseline. Collaborate with interdisciplinary team to initiate plan and implement interventions as ordered. Outcome: Progressing Problem: Activity Intolerance/Impaired Mobility Goal: Mobility/activity is maintained at optimum level for patient Description: Assess and monitor patient barriers to mobility and need for jasmin tive/adaptive devices. Assess patient's emotional response to limitations. Santosh salazarate with interdisciplinary team and initiate plans and interventions as order ed. Outcome: Progressing Problem: Communication Impairment Goal: Ability to express needs and understand communication Description: Assess patient's communication skills and ability to understand inf ormation. Patient will demonstrate use of effective communication techniques, a lternative methods of communication and understanding even if not able to speak. Outcome: Progressing Problem: Aspiration Precautions Goal: Non-ventilated patient's risk of aspiration is minimized Description: Assess and monitor vital signs, respiratory status, and labs (WBC). Monitor for signs of aspiration (tachypnea, cough, rales, wheezing, cyanosis, fever). Outcome: Progressing Goal: Ventilated patient's risk of aspiration is minimized Description: Assess and monitor vital signs, respiratory status, airway cuff pre ssure, and labs (WBC). Monitor for signs of aspiration (tachypnea, cough, rales , wheezing, cyanosis, fever). Outcome: Progressing Problem: Nutrition Goal: Nutritional status is improving Description: Monitor and assess patient for malnutrition (ex- brittle hair, brui ses, dry skin, pale skin and conjunctiva, muscle wasting, smooth red tongue, and disorientation). Collaborate with interdisciplinary team and initiate plan and interventions as ordered. Monitor patient's weight and dietary intake as ordere d or per policy. Utilize nutrition screening tool and intervene per policy. Dete rmine patient's food preferences and provide high-protein, high-caloric foods as appropriate. Outcome: Progressing Problem: Comorbidity: Increased stroke risk related to dyslipidemia Goal: Patient cholestrol levels will be monitored Outcome: Progressing Goal: Knowledge deficit on high cholestrol treatment and prevention Outcome: Progressing Goal: Patient's discharge needs are met Outcome: Progressing Problem: Comorbidity: Increased stroke risk related to diabetes mellitus Goal: Clinical indication of glucose balance is achieved Outcome: Progressing Goal: Knowledge deficit of disease process Outcome: Progressing Goal: Patient's discharge needs are met Outcome: Progressing Problem: Comorbidity: Increased stroke risk related to hypertension Goal: Blood pressure is within ordered parameters Outcome: Progressing Goal: Knowledge deficit of disease process Outcome: Progressing Goal: Patient's hypertension discharge needs are met Outcome: Progressing * Plan of Care - Nela Olmstead RN - 04/06/2021 10:57 PM EDT Problem: Glucose Imbalance Goal: Clinical indication of glucose balance is achieved Outcome: Progressing Goal: Patient's discharge needs are met Outcome: Progressing Problem: Sensory Perception is less than 4 (< 4) Goal: Improve Sensory Perception Outcome: Progressing Problem: Moisture is less than 4 (< 4) Goal: Eliminate Moisture Outcome: Progressing Problem: Activity is less than 4 (< 4) Goal: Improve Activity Outcome: Progressing Problem: Mobility is less than 4 (< 4) Goal: Improve Mobility Outcome: Progressing Problem: Nutrition is Less than 3 (< 3) Goal: Improve Nutrition Outcome: Progressing Problem: Friction Shear is less than 3 (< 3) Goal: Eliminate Friction Shear Outcome: Progressing Problem: Risk for Falls Goal: No falls during hospitalization Description: Patient will not fall during hospitalization. Outcome: Progressing Problem: Knowledge Deficit Goal: Knowledge - personal safety Description: Patient will verbalize understanding of fall prevention. Outcome: Progressing Problem: Neurological Deficit Goal: Neurological status is stable or improving Description: Monitor and assess patient's level of consciousness, motor function , sensory function, and level of assistance needed for ADLs. Monitor and report changes from baseline. Collaborate with interdisciplinary team to initiate plan and implement interventions as ordered. Outcome: Progressing Problem: Activity Intolerance/Impaired Mobility Goal: Mobility/activity is maintained at optimum level for patient Description: Assess and monitor patient barriers to mobility and need for jasmin tive/adaptive devices. Assess patient's emotional response to limitations. Santosh telles with interdisciplinary team and initiate plans and interventions as order ed. Outcome: Progressing Problem: Communication Impairment Goal: Ability to express needs and understand communication Description: Assess patient's communication skills and ability to understand inf ormation. Patient will demonstrate use of effective communication techniques, a lternative methods of communication and understanding even if not able to speak. Outcome: Progressing Problem: Aspiration Precautions Goal: Non-ventilated patient's risk of aspiration is minimized Description: Assess and monitor vital signs, respiratory status, and labs (WBC). Monitor for signs of aspiration (tachypnea, cough, rales, wheezing, cyanosis, fever). Outcome: Progressing Goal: Ventilated patient's risk of aspiration is minimized Description: Assess and monitor vital signs, respiratory status, airway cuff pre ssure, and labs (WBC). Monitor for signs of aspiration (tachypnea, cough, rales , wheezing, cyanosis, fever). Outcome: Progressing Problem: Nutrition Goal: Nutritional status is improving Description: Monitor and assess patient for malnutrition (ex- brittle hair, brui ses, dry skin, pale skin and conjunctiva, muscle wasting, smooth red tongue, and disorientation). Collaborate with interdisciplinary team and initiate plan and interventions as ordered. Monitor patient's weight and dietary intake as ordere d or per policy. Utilize nutrition screening tool and intervene per policy. Dete rmine patient's food preferences and provide high-protein, high-caloric foods as appropriate. Outcome: Progressing Problem: Comorbidity: Increased stroke risk related to dyslipidemia Goal: Patient cholestrol levels will be monitored Outcome: Progressing Goal: Knowledge deficit on high cholestrol treatment and prevention Outcome: Progressing Goal: Patient's discharge needs are met Outcome: Progressing Problem: Comorbidity: Increased stroke risk related to diabetes mellitus Goal: Clinical indication of glucose balance is achieved Outcome: Progressing Goal: Knowledge deficit of disease process Outcome: Progressing Goal: Patient's discharge needs are met Outcome: Progressing Problem: Comorbidity: Increased stroke risk related to hypertension Goal: Blood pressure is within ordered parameters Outcome: Progressing Goal: Knowledge deficit of disease process Outcome: Progressing Goal: Patient's hypertension discharge needs are met Outcome: Progressing * Assessment & Plan Note - Fabiola Bennett OT - 04/06/2021 9:29 AM EDT Occupational Therapy Acute Care Functional Living Examination Medical Diagnosis: lower extremity weakness History of Present Illness: per epic: On 04/05/2021 in the morning, the patient was woken up by her going to the bathroom, both partners were unable to go to sleep, and they turned on the TV to watch [employer]. At 0430, the patient suddenly had upper and lower extremity shaking that lasted 15 seconds. She was somewhat aware during this shaking, could hear her called her name. 15 more seconds to return back to her baseline, however she had bilateral arm and leg flaccid weakness. Over the next 45 minutes-1hour, her arms returned back to baseline, however her legs remain weak. At baseline she is able to transfer and walk by herself, but now she is barely able to lemon picker her legs to antigravity. ? 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 Patient lives with and 3 children . If needed: Family member is willing to assist. Home Environment: 4 steps to enter with Jean Claude HRs, 1 story home, 2 full baths, pt utilizies bath with walk in shower, + grab bars and shower chair. +grab bars around toilet. Equipment Owned: manual wheelchair, visual cane, grab bars in shower and around toilet, shower chair. Pain: Patient has no complaints of pain currently. Pain Medication Today: no. OBJECTIVE General Observation: pt is supine in bed with HOB elevated, intiially upon therapist entering room pt was on the bedside commode, assist pt back to stretcher. +telem, + PIV, pt does not appear to be in acute distress Vital Signs: Stable. UPPER EXTREMITY FUNCTION Hand Dominance: right. Range of Motion: R UE shoulder flexion limited by injury, L UE AROM is WFL, Jean Claude LE AROM limited , pt reports legs feel heavy, WHen providing AAROM to L LE therapist noted what felt like resistance while ranging. Strength: Jean Claude UE strength is 3/5, jean claude LE unable to formally assess secondary to increased pain with tactile input Skin Integrity Screen: grossly intact Endurance: fair. Tone/Spasticity: No relevant impairments. Sensation: Grossly intact. Edema: No edema is present. LOWER EXTREMITY FUNCTION: grossly intact Cognitive Screen: Responsiveness: Alert. Orientation: The patient is oriented to person, place and time. Following Commands: The patient is able to follow 3+ step commands Memory: Normal. Communications: pt is able to communicate wants and needs Executive Function: Intact . Attention: Normal. Cognitive Test Score: Not tested. Vision Screen: pt has a L visual cut to Jean Claude eyes, pt able to make out shapes Perception: Perception was within normal limits with today's examination. Functional Mobility: not asessed as pt recently returned to bed and reports she is fatigued Fine Motor Coordination: Upper extremity fine motor coordination is grossly intact. Gross Motor Coordination: Upper extremity gross motor coordination is intact. Balance: Not assessed. Activities of Daily Living: Feeding: Independent. Observed patient during task. Grooming: Independent. Observed patient during task. Bathing - Upper Body: Not assessed. Bathing - Lower Body: Not assessed. Upper Body Dressing: Not assessed. Lower Body Dressing: Not assessed. Toileting: Not assessed. Toilet Transfer: Not assessed. Outcome Measure: [facility] AM-PAC "6 Clicks" Daily Activity Inpatient Short Form: Putting on and taking off regular lower body clothing: Total assistance (1) Bathing (including washing, rinsing, and drying): Total assistance (1) Toileting (including use of toilet, bedpan, or urinal): A lot of assistance (2) Putting on and taking off regular upper body clothing: A little assistance (3) Taking care of personal grooming such as brushing teeth: A little assistance (3) Eating meals: No assistance (4) Raw Score: 14 24 Interventions: None provided today. Splinting: No splint issued today. Education: Educational needs: Role of OT, Plan of Care Barriers to Learning: No barriers. Learning Preference: Auditory. Mode of education provided: Explanation. Audience: Patient. Education Provided: Role of OT, Plan of Care . Response: Verbalized understanding. ASSESSMENT Moderate Complexity Evaluation: An occupational profile and medical and therapy history, which includes an expanded review of medical and/or therapy records and additional review of physical, cognitive, or psychosocial history related to current functional performance. An assessment(s) that identifies 3-5 performance deficits (i.e., relating to physical, cognitive, and psychosocial skills) that result in activity limitations and/or participation restrictions. Patient may present with comorbidities that affect occupational performance. Minimal to moderate modification of tasks or assistance (i.e., physical or verbal) with assessment(s) is necessary to enable patient to complete evaluation component. Clinical decision-making of moderate analytic complexity which includes an analysis of the occupational profile, analysis of data from detailed assessment(s), and consideration of several treatment options. Response to Evaluation: The session was tolerated well. Call [place] was in patient's reach at end of session. Pain: Patient has no complaints of pain currently. Strengths: Accessible home environment. Independent premorbid function. Goals: Patient's functional goals: to go home The patient's therapy goals are based on limitations/impairments in the following areas: ADLs / IADLs. Changing and maintaining body position. functional mobility Short Term Goals: 1. pt will complete toilet transfer with minimal assist in 2 weeks 2. pt will complete LB dressing with minimal assist in 2 weeks 3. pt will complete supine to sitting at the edge of the bed with minimal assist in 2 weeks [employer] Goals: 1. pt will complete full body bathing with modified independence in 4 weeks 2. pt will complete functional transfers from various surfaces with modified independence in 4 weeks PLAN Treatment Frequency, Duration and Interventions: Restorative Occupational Therapy recommended for 5x's a week for 4 weeks Treatment is to include: Self Care/Home Management. Therapeutic Activity. Therapeutic Exercise. Equipment Provided: None issued this visit. Equipment Recommended: None. Recommended Occupational Therapy Follow Up: Upon acute care discharge, the following is currently recommended: Unable to determine until after ADL assessment. Recommended Consults: Physical Therapy. Development of Plan of Care: Participants included: Nurse. Patient and family. Goal Review Visit Number: 1 Visit Number: Today's visit is number 1 Program: Neuro (Therapist may be reached on FND) SESSION: Duration: 16 CHARGES: - 0 Units - 0 Units - 0 Units - 0 Units 85521 - CHARGE - OT EVAL; MODERATE COMLEXITY 1 Units - NEURO VISIT 1 Units - ORDER - Occupational Therapy Treatment 1 Units - ORDER - OCCUPATIONAL THERAPY CONSULT 1 Units - STAT ONLY VISIT 1 Units Total treatment minutes: 16.00 Minutes Electronically Signed by: FARA Flores OTR/L, 04/06/2021 11:48:32 AM documented in this encounter Plan of Treatment Care Team Description Date Type Specialty Yakelin Mata MD [address] [place] [address] [id number] 05/09/2021 Procedure visit Infusion Therapy Tamela Rey MD [address], [place] [id number] 06/27/2021 Procedure visit Infusion Therapy Yakelin Mata MD [address] [place] [address] [phone] 07/04/2021 Office Visit Neurology Mali Del Rio MD [address], [place] [id number] 03/07/2022 Office Visit Cardiology Date/Time Name Type Priority Associated Diag noses 04/07/2021 2:05 PM EDT EEG Video Monitoring Neurology Routine 04/08/2021 9:43 AM EDT US Doppler Lower Imaging Routine Extremity Bilateral Venous Comp (Vascular Lab) Order Schedule Name Type Priority Associated Diag noses 4X Daily (AC & HS) for 30 Days starting 04/06/2021 until 05/05/2021, 7 completed POCT glucose, docked AC & Point of Care Routine HS Testing-Docked Device Daily for 30 Days starting 04/06/2021 un til 05/05/2021, 4 completed POCT glucose, docked Point of Care Routine Testing-Docked Device Daily for 30 Days starting 04/07/2021 un til 05/06/2021, 3 completed CBC and Differential Lab Routine Continuous for 30 Days starting 04/07/20 until 04/07/2021 EEG Video Monitoring Neurology Routine AM Draw for 3 Days starting 04/10/2021 u ntil 04/12/2021 Basic Metabolic Panel Lab Routine Order Schedule Name Type Priority Associated Diag noses Ordered: 04/09/2021 Referral to Psychiatry Outpatient Routine Leg wea kness, bilateral Referral Health Maintenance Due Date Last Done Comments MMR Vaccines (1 of 1 - 1974 Standard series) Varicella Vaccines (1 [...] ot Implanted Type Area Manufactur er 12/14/2021 [id number] / [id number] / Recorder Loop Reveal [employer] - Loop N/A: Chest [employer] [id number] [employer] Implanted: Qty: 1 on 09/25/2020 by Mali Del Rio MD at OR [facility] documented as of this encounter Procedures Comments Procedure Name Priority Date/Time Associated Diag nosis POCT GLUCOSE, DOCKED Routine 04/09/2021 12:14 PM EDT POCT GLUCOSE, DOCKED Routine 04/09/2021 8:41 AM EDT CBC AND DIFFERENTIAL Routine 04/09/2021 6:05 AM EDT BASIC METABOLIC PANEL Routine 04/09/2021 6:05 AM EDT POCT GLUCOSE, DOCKED Routine 04/08/2021 9:16 PM EDT POCT GLUCOSE, DOCKED Routine 04/08/2021 5:10 PM EDT POCT GLUCOSE, DOCKED Routine 04/08/2021 12:45 PM EDT VASC LAB US DOPPLER LOWER Routine 04/08/2021 EXTREMITY BILATERAL 9:43 AM EDT VENOUS COMP [id number] Procedure Note - Interface, Received Via Department [place] - 04/08/2021 2:25 PM EDT [facility] --- PRELIMINAR Y REPORT --- SHAWNA MARKHAM : [birth year] [id number] Age: 45 Sex: F 08 Apr 2023 RefMD: NADYA TEST TYPE: Peripheral Venous Testing REASON FOR TEST Pain in limb Right Leg:- Deep venous thrombosis : No Superficia l venous thrombosis : No Deep venous insufficie ncy: Not examined Superficia l venous insufficie ncy: Not examined Left Leg:- Deep venous thrombosis : No Superficia l venous thrombosis : No Deep venous insufficie ncy: Not examined Superficia l venous insufficie ncy: Not examined INTERPRETA TION/FINDI NGS Duplex interrogat ion of the bilateral lower extremity deep venous system was performed. Normal compressib ility, augmentati on and phasicity was demonstrat ed within the common femoral and popliteal veins. The femoral, posterior tibial and peroneal veins show normal compressib ility. Impressio n: No evidence of lower extremity deep venous thrombosis bilaterall y. ADDITIONA L COMMENTS I have personally reviewed the data relevant to the interpreta tion of this study. TECHNOLOG IST: Mona Lora POCT GLUCOSE, DOCKED Routine 04/08/2021 8:42 AM EDT POCT GLUCOSE, DOCKED Routine 04/08/2021 8:29 AM EDT CBC AND DIFFERENTIAL Routine 04/08/2021 3:47 AM EDT BASIC METABOLIC PANEL Routine 04/08/2021 3:47 AM EDT POCT GLUCOSE, DOCKED Routine 04/07/2021 5:23 PM EDT POCT GLUCOSE, DOCKED Routine 04/07/2021 12:38 PM EDT POCT GLUCOSE, DOCKED Routine 04/07/2021 8:26 AM EDT CBC AND DIFFERENTIAL Routine 04/07/2021 1:13 AM EDT BASIC METABOLIC PANEL Routine 04/07/2021 1:13 AM EDT POCT GLUCOSE, DOCKED Routine 04/06/2021 10:06 PM EDT POCT GLUCOSE, DOCKED Routine 04/06/2021 5:17 PM EDT POCT GLUCOSE, DOCKED Routine 04/06/2021 1:48 PM EDT MR ANGIOGRAPHY NECK Routine 04/06/2021 WITHOUT CONTRAST 13220 1:27 PM EDT MR ANGIOGRAPHY HEAD Routine 04/06/2021 WITHOUT CONTRAST [id number] 1:27 PM EDT MR BRAIN WITHOUT CONTRAST Routine 04/06/2021 [id number] 1:27 PM EDT EEG ROUTINE STUDY Routine 04/06/2021 12:40 PM EDT URINALYSIS WITH STAT 04/06/2021 MICROSCOPIC 9:22 AM EDT CBC AND DIFFERENTIAL Routine 04/06/2021 8:57 AM EDT POCT GLUCOSE, DOCKED Routine 04/06/2021 8:44 AM EDT XR CHEST FRONTAL ONLY Urgent 04/06/2021 [id number] 7:[address] HEAD WITHOUT CONTRAST STAT 04/06/2021 [id number] 6:05 AM EDT TROPONIN T HIGH STAT 04/06/2021 SENSITIVITY 5:38 AM EDT RESPIRATORY PATHOGEN Routine 04/06/2021 PANEL 5:38 AM EDT COVID-19 PCR Routine 04/06/2021 5:38 AM EDT PARTIAL THROMBOPLASTIN Routine 04/06/2021 TIME (PTT) 5:38 AM EDT PROTIME INR STAT 04/06/2021 5:38 AM EDT CBC AND DIFFERENTIAL Routine 04/06/2021 5:38 AM EDT TSH Routine 04/06/2021 5:38 AM EDT MAGNESIUM LEVEL STAT 04/06/2021 5:38 AM EDT HEMOGLOBIN A1C Routine 04/06/2021 5:38 AM EDT CK Routine 04/06/2021 5:38 AM EDT LIPID PANEL Routine 04/06/2021 5:38 AM EDT COMPREHENSIVE METABOLIC STAT 04/06/2021 PANEL 5:38 AM EDT EKG 12-LEAD - CMAXX 04/06/2021 REPORT 5:36 AM EDT EKG 12-LEAD - CMAXX 04/06/2021 REPORT 5:36 AM EDT EKG 12-LEAD STAT 04/06/2021 5:36 AM EDT EKG 12-LEAD - CMAXX 04/06/2021 REPORT 5:36 AM EDT POCT GLUCOSE, DOCKED Routine 04/05/2021 6:17 PM EDT documented in this encounter Results * POCT glucose, docked (04/09/2021 12:14 PM EDT) POC Glucose 213 (H) 70 - 140 mg/dL [facility] POC Specimen Whole Blood Performing Organization Address City/[facility] P tialo Number POINT OF CARE TEST [address] POC [address] [place] [address] * POCT glucose, docked (04/09/2021 8:41 AM EDT) Pathologist [facility] POC Glucose 152 (H) 70 - 140 mg/dL [facility] POC Specimen Whole Blood Performing Organization Address [facility] P italo Number POINT OF CARE TEST [address] POC [address] [place] [address] * CBC and Differential (04/09/2021 6:05 AM EDT) Pathologist [facility] White Blood 15.5 (H) 4.00 - 10.00 10*3/uL [facility] ate Cell [facility] Clin Pathology Red Blood Cell 4.22 4.10 - 5.30 10*6/uL [facility] te [facility] Clin Pathology Hemoglobin 11.8 11.5 - 15.5 g/dL [facility] Clin Pathology Hematocrit 36.3 36.0 - 45.0 % [facility] Clin Pathology Mean Cell 86.0 80.0 - 96.0 fL [facility] Volume [facility] Clin Pathology Mean Cell 27.9 27.0 - 33.0 pg [facility] Hemoglobin [facility] Clin Pathology Mean Cell Hgb 32.5 32 - 36 g/dL [facility] Conc [facility] Clin Pathology Red Cell Dist 14.2 11.5 - 14.5 % [facility] Width [facility] Clin Pathology Platelet Count 328 150 - 400 10*3/uL [facility] Clin Pathology Differential Automated Diff [facility] Type [facility] Clin Pathology Neutrophil 59 % [facility] Pathology Lymphocyte 29 % [facility] Clin Pathology Monocyte 7 % [facility] Clin Pathology Eosinophil 4 % [facility] Clin Pathology Basophil 1 % [facility] Clin Pathology Abs Neutrophil 9.09 (H) 1.80 - 7.00 10*3/uL [facility] Clin Pathology Abs Lymphocyte 4.54 (H) 1.20 - 4.00 10*3/uL [facility] Clin Pathology Abs Monocyte 1.14 (H) 0.00 - 0.80 10*3/uL [facility] Clin Pathology Abs Eosinophil 0.58 (H) 0.00 - 0.50 10*3/uL [facility] Clin Pathology Abs Basophil 0.12 0.00 - 0.20 10*3/uL [facility] Clin Pathology Nucleated Red 0 0 - 0 /100{WBCs} [facility] Blood Cells [facility] Pathology Specimen EDTA Whole Blood Performing Organization Address City/State/ZIP Code P italo Number [facility] [address] [place], [place] [address] PATHOLOGY [facility] [address] [place], [place] [address] Clin Pathology * Basic Metabolic Panel (04/09/2021 6:05 AM EDT) Bicarbonate 18 (L) 22 - 29 mmol/L [facility] Clin Pathology Chloride 103 98 - 107 mmol/L [facility] Clin Pathology Creatinine 1.43 (H) 0.50 - 0.90 mg/dL [facility] Clin Pathology Glucose 198 (H) 70 - 140 mg/dL [facility] Clin Pathology Potassium 4.4 3.4 - 5.1 mmol/L [facility] Clin Pathology Sodium 134 (L) 136 - 145 mmol/L [facility] Clin Pathology Blood Urea 35 (H) 6 - 20 mg/dL [facility] Nitrogen [facility] Clin Pathology Anion Gap 13 8 - 15 mmol/L [facility] Clin Pathology Osmolality, Eduardo 291 275.0 - 300.0 [facility] mosm/kg [facility] Clin Pathology BUN/Cre Ratio 24 [facility] Clin Pathology Calcium 9.4 8.6 - 10.0 mg/dL [facility] Clin Pathology GFR Non 43 (L) >60 mL/min/1.73m2 [facility] e [place]ian 2008 [facility] Clin CDK-EPI Pathology GFR 50 (L) >60 mL/min/1.73m2 [address] Clin CKD-EPI Pathology Specimen Plasma Performing Organization Address City/[facility]/ZIP Code P italo Number [facility] [address] [place], [place] [address] PATHOLOGY [facility] [address] [place], [place] [address] Clin Pathology * POCT glucose, docked (04/08/2021 9:16 PM EDT) POC Glucose 250 (H) 70 - 140 mg/dL [facility] POC Specimen Whole Blood Performing Organization Address City/[facility]/ZIP [facility] P italo Number POINT OF CARE TEST [address] [place], [place] [id number] [place] [address] POC [address] [place] [address] * POCT glucose, docked (04/08/2021 5:10 PM EDT) POC Glucose 227 (H) 70 - 140 mg/dL [facility] POC Specimen Whole Blood Performing Organization Address [facility] P italo Number POINT OF CARE TEST [address] [place] [address] [facility] POC [address] [place] [address] * POCT glucose, docked (04/08/2021 12:45 PM EDT) POC Glucose 231 (H) 70 - 140 mg/dL [facility] POC Specimen Whole Blood Performing Organization Address [facility] P italo Number POINT OF CARE TEST [address] [place], [place] [id number] [place] [address] POC [address] [place] [address] * POCT glucose, docked (04/08/2021 8:42 AM EDT) POC Glucose 157 (H) 70 - 140 mg/dL [facility] POC Specimen Whole Blood Performing Organization Address City/[facility]/ZIP [facility] P italo Number POINT OF CARE TEST [address] [place] [address] [facility] POC [address] [place] [address] * POCT glucose, docked (04/08/2021 8:29 AM EDT) POC Glucose 167 (H) 70 - 140 mg/dL [facility] POC Specimen Whole Blood Performing Organization Address City/[facility]/ZIP Code P italo Number POINT OF CARE TEST [address] [place], [place] [id number] [place] [address] POC [address] [place] [address] * CBC and Differential (04/08/2021 3:47 AM EDT) White Blood 16.9 (H) 4.00 - 10.00 10*3/uL [facility] ate Cell [facility] Clin Pathology Red Blood Cell 4.04 (L) 4.10 - 5.30 10*6/uL [facility] Clin Pathology Hemoglobin 11.7 11.5 - 15.5 g/dL [facility] Clin Pathology Hematocrit 35.1 (L) 36.0 - 45.0 % [facility] Clin Pathology Mean Cell 86.7 80.0 - 96.0 fL [facility] Volume [facility] Clin Pathology Mean Cell 29.0 27.0 - 33.0 pg [facility] Hemoglobin [facility] Clin Pathology Mean Cell Hgb 33.4 32 - 36 g/dL [facility] Conc [facility] Clin Pathology Red Cell Dist 14.1 11.5 - 14.5 % [facility] Width [facility] Clin Pathology Platelet Count 343 150 - 400 10*3/uL [facility] Clin Pathology Differential Automated Diff [facility] Type [facility] Clin Pathology Neutrophil 60 % [facility] Clin Pathology Lymphocyte 26 % [facility] Pathology Monocyte 9 % [facility] Pathology Eosinophil 4 % [facility] Clin Pathology Basophil 1 % [facility] Clin Pathology Abs Neutrophil 10.09 (H) 1.80 - 7.00 10*3/uL [facility] Clin Pathology Abs Lymphocyte 4.45 (H) 1.20 - 4.00 10*3/uL [facility] Clin Pathology Abs Monocyte 1.56 (H) 0.00 - 0.80 10*3/uL [facility] Clin Pathology Abs Eosinophil 0.64 (H) 0.00 - 0.50 10*3/uL [facility] Clin Pathology Abs Basophil 0.11 0.00 - 0.20 10*3/uL [facility] Clin Pathology Nucleated Red 0 0 - 0 /100{WBCs} [facility] Blood Cells [facility] Pathology Specimen EDTA Whole Blood Performing Organization Address City/State/ZIP Code P italo Number [facility] [address] [place], [place] [address] PATHOLOGY [facility] [address] [place], [place] [address] Clin Pathology * Basic Metabolic Panel (04/08/2021 3:47 AM EDT) Bicarbonate 18 (L) 22 - 29 mmol/L [facility] Clin Pathology Chloride 106 98 - 107 mmol/L [facility] Clin Pathology Creatinine 1.55 (H) 0.50 - 0.90 mg/dL [facility] Clin Pathology Glucose 191 (H) 70 - 140 mg/dL [facility] Clin Pathology Potassium 4.3 3.4 - 5.1 mmol/L [facility] Clin Pathology Sodium 135 (L) 136 - 145 mmol/L [facility] Clin Pathology Blood Urea 39 (H) 6 - 20 mg/dL [facility] Clin Pathology Anion Gap 11 8 - 15 mmol/L [facility] Clin Pathology Osmolality, Eduardo 295 275.0 - 300.0 [facility] mosm/kg [facility] Clin Pathology BUN/Cre Ratio 25 [facility] Clin Pathology Calcium 9.0 8.6 - 10.0 mg/dL [facility] Clin Pathology GFR Non 39 (L) >60 mL/min/1.73m2 [facility] 2008 Med [facility] Clin CDK-EPI Pathology GFR 45 (L) >60 mL/min/1.73m2 [facility] 2008 [facility] CKD-EPI Pathology Specimen Plasma Performing Organization Address City/[facility]/ZIP Code P italo Number [facility] [address] [place], [place] [address] PATHOLOGY [facility] [address] [place], [place] [address] Clin Pathology * POCT glucose, docked (04/07/2021 5:23 PM EDT) POC Glucose 335 (H) 70 - 140 mg/dL [facility] POC Specimen Whole Blood Performing Organization Address City/[facility]/ZIP Code P italo Number POINT OF CARE TEST [address] [place] [address] [facility] POC [address] [place] [address] * POCT glucose, docked (04/07/2021 12:38 PM EDT) POC Glucose 346 (H) 70 - 140 mg/dL [facility] POC Specimen Whole Blood Performing Organization Address City/State/ZIP Code P italo Number POINT OF CARE TEST [address] [place] [place] [id number] [place] [address] POC [address] [place] [address] * POCT glucose, docked (04/07/2021 8:26 AM EDT) Pathologist [facility] POC Glucose 214 (H) 70 - 140 mg/dL [facility] POC Specimen Whole Blood Performing Organization Address City/[facility] P italo Number POINT OF CARE TEST [address] [place] [address] [facility] POC [address] [place] [address] * CBC and Differential (04/07/2021 1:13 AM EDT) Pathologist [facility] White Blood 17.1 (H) 4.00 - 10.00 10*3/uL [facility] ate Cell [facility] Clin Pathology Red Blood Cell 4.13 4.10 - 5.30 10*6/uL [facility] Clin Pathology Hemoglobin 11.7 11.5 - 15.5 g/dL [facility] Clin Pathology Hematocrit 35.4 (L) 36.0 - 45.0 % [facility] Clin Pathology Mean Cell 85.9 80.0 - 96.0 fL [facility] Volume [facility] Clin Pathology Mean Cell 28.2 27.0 - 33.0 pg [facility] Hemoglobin [facility] Clin Pathology Mean Cell Hgb 32.9 32 - 36 g/dL [facility] Clin Pathology Red Cell Dist 14.2 11.5 - 14.5 % [facility] Width [facility] Clin Pathology Platelet Count 368 150 - 400 10*3/uL [facility] Clin Pathology Differential Automated Diff [facility] Type [facility] Clin Pathology Neutrophil 62 % [facility] Clin Pathology Lymphocyte 24 % [facility] Clin Pathology Monocyte 9 % [facility] Clin Pathology Eosinophil 4 % [facility] Clin Pathology Basophil 1 % [facility] Clin Pathology Abs Neutrophil 10.77 (H) 1.80 - 7.00 10*3/uL [facility] Clin Pathology Abs Lymphocyte 4.06 (H) 1.20 - 4.00 10*3/uL [facility] Clin Pathology Abs Monocyte 1.46 (H) 0.00 - 0.80 10*3/uL [facility] Clin Pathology Abs Eosinophil 0.66 (H) 0.00 - 0.50 10*3/uL [facility] Clin Pathology Abs Basophil 0.11 0.00 - 0.20 10*3/uL [facility] Clin Pathology Nucleated Red 0 0 - 0 /100{WBCs} [facility] Blood Cells [facility] Pathology Specimen EDTA Whole Blood Performing Organization Address City/[facility] P italo Number [facility] [address] [place], [place] [address] [address] Clin Pathology * Basic Metabolic Panel (04/07/2021 1:13 AM EDT) Bicarbonate 17 (L) 22 - 29 mmol/L [facility] Clin Pathology Chloride 102 98 - 107 mmol/L [facility] Clin Pathology Creatinine 1.39 (H) 0.50 - 0.90 mg/dL [facility] Clin Pathology Glucose 254 (H) 70 - 140 mg/dL [facility] Clin Pathology Potassium 4.5Comment: Hemolyzed 3.4 - 5.1 mmol/L [facility] Clin Pathology Sodium 132 (L) 136 - 145 mmol/L [facility] Clin Pathology Blood Urea 35 (H) 6 - 20 mg/dL [facility] Nitrogen [facility] Clin Pathology Anion Gap 13 8 - 15 mmol/L [facility] Clin Pathology Osmolality, Eduardo 290 275.0 - 300.0 [facility] mosm/kg [facility] Clin Pathology BUN/Cre Ratio 25 [facility] Clin Pathology Calcium 9.3 8.6 - 10.0 mg/dL [facility] Clin Pathology GFR Non 44 (L) >60 mL/min/1.73m2 [facility] 2008 [facility] CDK-EPI Pathology GFR 52 (L) >60 mL/min/1.73m2 [facility] 2008 [facility] CKD-EPI Pathology Specimen Plasma Performing Organization Address City/[facility]/ZIP Code P italo Number [facility] [address] [place], [place] [address] PATHOLOGY [facility] [address] [facility] [place] [address] Clin Pathology * POCT glucose, docked (04/06/2021 10:06 PM EDT) POC Glucose 320 (H) 70 - 140 mg/dL [facility] POC Specimen Whole Blood Performing Organization Address City/State/ZIP Code P italo Number POINT OF CARE TEST [address] [place] [address] [facility] POC [address] [place] [address] * POCT glucose, docked (04/06/2021 5:17 PM EDT) POC Glucose 300 (H) 70 - 140 mg/dL [facility] POC Specimen Whole Blood Performing Organization Address City/[facility]/ZIP Code P italo Number POINT OF CARE TEST [address] [facility] [place] [address] [facility] POC [address] [place] [address] * POCT glucose, docked (04/06/2021 1:48 PM EDT) POC Glucose 284 (H) 70 - 140 mg/dL [facility] POC Specimen Whole Blood Performing Organization Address City/[facility]/ZIP [facility] P italo Number POINT OF CARE TEST [address] POC [address] [place] [address] * MR Angiography Neck without Contrast (04/06/2021 1:27 PM EDT) Specimen Impressions Performed At IMPRESSION: [facility] 1. No acute cerebral or cerebellar infarc t. 2. 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 3. Old lacunar infarct in the left thalam us. 4. No large vessel occlusion in the circl e of Sanchez. 5. No occlusion in the major arteries of the neck. Narrative Performed At INDICATION: Evaluate for acute ischemic stroke. [facility] TECHNIQUE: Multisequence multiplanar MR images of the brain without intravenous contrast; 2D TOF were submitted for int erpretation of the MRA of the neck: Non-contrast MR angiogram of the brain was performed with axial TOF images. 3D maximum intensity projections were gene rated. All measurements are per NASCET criteria COMPARISONS: CT head dated 04/06/2021 at 5:58 AM and MRI brain dated 07/19/2020. FINDINGS: MRI BRAIN: There are no areas of abnormal restrict ed diffusion to suggest acute infarct. Again noted, encephalomalacia with surr ounding gliosis in the right occipital lobe with ex vacuo dilatation of the ri ght occipital horn consistent with old cerebral infarct. There is abnormal param ceptibility within this area, consistent with hemosiderin deposition. There is n o acute hemorrhage. A small old lacunar infarct is again noted in the left thal amus. Moderate scattered nonspecific white matter disease. Prominence of the perivascular spaces. The paranasal sinuses are well aerated. There is opacification of a few mastoid air cells on the left. The visualized o rbits are normal in appearance. MRA NECK: Motion artifact degrades images at the origins of the carotid and vertebral arteries. Flow signal consistent with p atency is shown within the common carotid, cervical segments of the inter nal carotid, external carotid, and vertebral arteries. The left vertebral artery is dominant. No dissection or hemodynamically significant flow stenos is is shown. MRA HEAD: Flow signal is shown in the intracrania l segments of the internal carotid arteries, the anterior, middle and post erior cerebral arteries, the anterior communicating artery, the intracranial segments of the vertebral arteries, and the basilar artery. No aneurysm, arteri ovenous malformation, dissection, nor hemodynamically significant flow stenos is is shown. Procedure Note Interface, Received Via SLID System - 04/06/2021 7:57 PM EDT INDICATION: Evaluate for acute ischemic stroke. TECHNIQUE: Multisequence multiplanar MR images of the brain without intravenous contrast; 2D TOF were submitted for interpretation of the MRA of the neck: Non- contrast MR angiogram of the brain was performed with axial TOF images. 3D maximum intensity projections were generated. All measurements are per NASCET criteria COMPARISONS: CT head dated 04/06/2021 at 5:58 AM and MRI brain dated 07/19/2020. FINDINGS: MRI BRAIN: There are no areas of abnormal restricted diffusion to suggest acute infarct. Again noted, encephalomalacia with surrounding gliosis in the right occipital lobe with ex vacuo dilatation of the right occipital horn consistent with old cerebral infarct. There is abnormal susceptibility within this area, consistent with hemosiderin deposition. There is no acute hemorrhage. A small old lacunar infarct is again noted in the left thalamus. Moderate scattered nonspecific white matter disease. Prominence of the perivascular spaces. The paranasal sinuses are well aerated. There is opacification of a few mastoid air cells on the left. The visualized orbits are normal in appearance. MRA NECK: Motion artifact degrades images at the origins of the carotid and vertebral arteries. Flow signal consistent with patency is shown within the common carotid, cervical segments of the internal carotid, external carotid, and vertebral arteries. The left vertebral artery is dominant. No dissection or hemodynamically significant flow stenosis is shown. MRA HEAD: Flow signal is shown in the intracranial segments of the internal carotid arteries, the anterior, middle and posterior cerebral arteries, the anterior communicating artery, the intracranial segments of the vertebral arteries, and the basilar artery. No aneurysm, arteriovenous malformation, dissection, nor hemodynamically significant flow stenosis is shown. IMPRESSION: 1. No acute cerebral or cerebellar infa rct. 2. Old cerebral infarct in the right oc cipital lobe. 3. Old lacunar infarct in the left thal amus. 4. No large vessel occlusion in the cir tania of Sanchez. 5. No occlusion in the major arteries o f the neck. Performing Organization Address City/State/ZIP Code P italo Number [facility] [address] [place] [address] * MR Angiography Head without Contrast (04/06/2021 1:27 PM EDT) Specimen Impressions Performed At IMPRESSION: [facility] 1. No acute cerebral or cerebellar infarc t. 2. 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 3. Old lacunar infarct in the left thalam us. 4. No large vessel occlusion in the circl e of Sanchez. 5. No occlusion in the major arteries of the neck. Narrative Performed At INDICATION: Evaluate for acute ischemic stroke. [facility] TECHNIQUE: Multisequence multiplanar MR images of the brain without intravenous contrast; 2D TOF were submitted for int erpretation of the MRA of the neck: Non-contrast MR angiogram of the brain was performed with axial TOF images. 3D maximum intensity projections were gene rated. All measurements are per NASCET criteria COMPARISONS: CT head dated 04/06/2021 at 5:58 AM and MRI brain dated 07/19/2020. FINDINGS: MRI BRAIN: There are no areas of abnormal restrict ed diffusion to suggest acute infarct. Again noted, encephalomalacia with surr ounding gliosis in the right occipital lobe with ex vacuo dilatation of the ri ght occipital horn consistent with old cerebral infarct. There is abnormal param ceptibility within this area, consistent with hemosiderin deposition. There is n o acute hemorrhage. A small old lacunar infarct is again noted in the left thal amus. Moderate scattered nonspecific white matter disease. Prominence of the perivascular spaces. The paranasal sinuses are well aerated. There is opacification of a few mastoid air cells on the left. The visualized o rbits are normal in appearance. MRA NECK: Motion artifact degrades images at the origins of the carotid and vertebral arteries. Flow signal consistent with p atency is shown within the common carotid, cervical segments of the inter nal carotid, external carotid, and vertebral arteries. The left vertebral artery is dominant. No dissection or hemodynamically significant flow stenos is is shown. MRA HEAD: Flow signal is shown in the intracrania l segments of the internal carotid arteries, the anterior, middle and post erior cerebral arteries, the anterior communicating artery, the intracranial segments of the vertebral arteries, and the basilar artery. No aneurysm, arteri ovenous malformation, dissection, nor hemodynamically significant flow stenos is is shown. Procedure Note Interface, Received Via SLID System - 04/06/2021 7:57 PM EDT INDICATION: Evaluate for acute ischemic stroke. TECHNIQUE: Multisequence multiplanar MR images of the brain without intravenous contrast; 2D TOF were submitted for interpretation of the MRA of the neck: Non- contrast MR angiogram of the brain was performed with axial TOF images. 3D maximum intensity projections were generated. All measurements are per NASCET criteria COMPARISONS: CT head dated 04/06/2021 at 5:58 AM and MRI brain dated 07/19/2020. FINDINGS: MRI BRAIN: There are no areas of abnormal restricted diffusion to suggest acute infarct. Again noted, encephalomalacia with surrounding gliosis in the right occipital lobe with ex vacuo dilatation of the right occipital horn consistent with old cerebral infarct. There is abnormal susceptibility within this area, consistent with hemosiderin deposition. There is no acute hemorrhage. A small old lacunar infarct is again noted in the left thalamus. Moderate scattered nonspecific white matter disease. Prominence of the perivascular spaces. The paranasal sinuses are well aerated. There is opacification of a few mastoid air cells on the left. The visualized orbits are normal in appearance. MRA NECK: Motion artifact degrades images at the origins of the carotid and vertebral arteries. Flow signal consistent with patency is shown within the common carotid, cervical segments of the internal carotid, external carotid, and vertebral arteries. The left vertebral artery is dominant. No dissection or hemodynamically significant flow stenosis is shown. MRA HEAD: Flow signal is shown in the intracranial segments of the internal carotid arteries, the anterior, middle and posterior cerebral arteries, the anterior communicating artery, the intracranial segments of the vertebral arteries, and the basilar artery. No aneurysm, arteriovenous malformation, dissection, nor hemodynamically significant flow stenosis is shown. IMPRESSION: 1. No acute cerebral or cerebellar infa rct. 2. Old cerebral infarct in the right oc cipital lobe. 3. Old lacunar infarct in the left thal amus. 4. No large vessel occlusion in the cir tania of Sanchez. 5. No occlusion in the major arteries o f the neck. Performing Organization Address City/State/ZIP Code P italo Number [facility] [address] [place] [address] * MR Brain without Contrast (04/06/2021 1:27 PM EDT) Specimen Impressions Performed At IMPRESSION: [facility] 1. No acute cerebral or cerebellar infarc t. 2. 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 3. Old lacunar infarct in the left thalam us. 4. No large vessel occlusion in the circl e of Sanchez. 5. No occlusion in the major arteries of the neck. Narrative Performed At [facility] INDICATION: Evaluate for acute ischemic stroke. TECHNIQUE: Multisequence multiplanar MR images of the brain without intravenous contrast; 2D TOF were submitted for int erpretation of the MRA of the neck: Non-contrast MR angiogram of the brain was performed with axial TOF images. 3D maximum intensity projections were gene rated. All measurements are per NASCET criteria COMPARISONS: CT head dated 04/06/2021 at 5:58 AM and MRI brain dated 07/19/2020. FINDINGS: MRI BRAIN: There are no areas of abnormal restrict ed diffusion to suggest acute infarct. Again noted, encephalomalacia with surr ounding gliosis in the right occipital lobe with ex vacuo dilatation of the ri ght occipital horn consistent with old cerebral infarct. There is abnormal param ceptibility within this area, consistent with hemosiderin deposition. There is n o acute hemorrhage. A small old lacunar infarct is again noted in the left thal amus. Moderate scattered nonspecific white matter disease. Prominence of the perivascular spaces. The paranasal sinuses are well aerated. There is opacification of a few mastoid air cells on the left. The visualized o rbits are normal in appearance. MRA NECK: Motion artifact degrades images at the origins of the carotid and vertebral arteries. Flow signal consistent with p atency is shown within the common carotid, cervical segments of the inter nal carotid, external carotid, and vertebral arteries. The left vertebral artery is dominant. No dissection or hemodynamically significant flow stenos is is shown. MRA HEAD: Flow signal is shown in the intracrania l segments of the internal carotid arteries, the anterior, middle and post erior cerebral arteries, the anterior communicating artery, the intracranial segments of the vertebral arteries, and the basilar artery. No aneurysm, arteri ovenous malformation, dissection, nor hemodynamically significant flow stenos is is shown. Procedure Note Interface, Received Via SLID System - 04/06/2021 7:57 PM EDT INDICATION: Evaluate for acute ischemic stroke. TECHNIQUE: Multisequence multiplanar MR images of the brain without intravenous contrast; 2D TOF were submitted for interpretation of the MRA of the neck: Non- contrast MR angiogram of the brain was performed with axial TOF images. 3D maximum intensity projections were generated. All measurements are per NASCET criteria COMPARISONS: CT head dated 04/06/2021 at 5:58 AM and MRI brain dated 07/19/2020. FINDINGS: MRI BRAIN: There are no areas of abnormal restricted diffusion to suggest acute infarct. Again noted, encephalomalacia with surrounding gliosis in the right occipital lobe with ex vacuo dilatation of the right occipital horn consistent with old cerebral infarct. There is abnormal susceptibility within this area, consistent with hemosiderin deposition. There is no acute hemorrhage. A small old lacunar infarct is again noted in the left thalamus. Moderate scattered nonspecific white matter disease. Prominence of the perivascular spaces. The paranasal sinuses are well aerated. There is opacification of a few mastoid air cells on the left. The visualized orbits are normal in appearance. MRA NECK: Motion artifact degrades images at the origins of the carotid and vertebral arteries. Flow signal consistent with patency is shown within the common carotid, cervical segments of the internal carotid, external carotid, and vertebral arteries. The left vertebral artery is dominant. No dissection or hemodynamically significant flow stenosis is shown. MRA HEAD: Flow signal is shown in the intracranial segments of the internal carotid arteries, the anterior, middle and posterior cerebral arteries, the anterior communicating artery, the intracranial segments of the vertebral arteries, and the basilar artery. No aneurysm, arteriovenous malformation, dissection, nor hemodynamically significant flow stenosis is shown. IMPRESSION: 1. No acute cerebral or cerebellar infa rct. 2. Old cerebral infarct in the right oc cipital lobe. 3. Old lacunar infarct in the left thal amus. 4. No large vessel occlusion in the cir tania of Sanchez. 5. No occlusion in the major arteries o f the neck. Performing Organization Address City/State/ZIP Code P italo Number [facility] [address] [place] [address] * EEG (04/06/2021 12:40 PM EDT) Narrative Performed At Elver Redding MD EXTERNAL NON-INTERFACED LAB 04/06/2021 12:56 PM EEG REPORT NUMBER [id number] DATE OF PROCEDURE: 04/06/2021 HISTORY: Shawna Markham is a 45 y.o. 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 No current facility-administered medica tions on file prior to encounter. Current Outpatient Medications on File Prior to Encounter Medication Sig Dispense Refill Admelog SoloStar 100 UNIT/ML Subcutan eous Solution Pen-injector Inject 1 pen into the skin Three times daily before meals 8U breakfast, 10U at lunch, 10 at dinner amLODIPine Besylate 2.5 MG Oral Table t (NORVASC) Take 5 mg by mouth daily Aspercreme Max Roll-On 16 % External Liquid (Menthol (Topical Analgesic)) Apply 1 Application topical ly Four times daily as needed 118 mL 0 aspirin 325 MG tablet Take 325 mg by mouth daily atorvastatin (LIPITOR) 80 MG tablet T forest 1 tablet by mouth every evening 30 tablet 11 B-2 100 MG Oral Tablet (RIBOFLAVIN) T forest 2 tablets by mouth daily 180 tablet 3 Blood Glucose Monitoring Suppl (PRODI GY VOICE BLOOD GLUCOSE) w/Device KIT Use as directed. To test b lood glucose 4x daily. Dx:E11.65 1 kit 0 ezetimibe (ZETIA) 10 MG tablet Take 1 0 mg by mouth daily fluticasone (FLONASE) 50 MCG/ACT nasa l spray 1 spray by Nasal route as needed 4 folic acid (FOLVITE) 1 MG tablet Take 1 mg by mouth daily 3 Gabapentin 300 MG Oral Capsule (Neuro ntin) Take 3 capsules by mouth nightly 270 capsule 3 glipiZIDE 5 MG Oral Tablet (GLUCOTROL ) Take 5 mg by mouth Two times daily before breakfast and dinner ketorolac (ACULAR) 0.5 % ophthalmic s olution Place 1 drop into both eyes Four times daily as needed labetalol (NORMODYNE) 200 MG tablet T forest 1 tablet by mouth every 12 (twelve) hours (Patient taking differently: Take 200 mg by mouth every evening ) 60 tablet 5 levalbuterol (XOPENEX) 1.25 MG/3ML ne bulizer solution Take 1 ampule by nebulization as needed for Wheezing levocetirizine (XYZAL) 5 MG tablet Ta ke 5 mg by mouth daily 5 Lisinopril 5 MG Oral Tablet (PRINIVIL ,ZESTRIL) Take 5 mg by mouth daily Magnesium Oxide 400 MG Oral Tablet (M AG-OX) Take 1 tablet by mouth Three times daily 180 tablet 3 meclizine (ANTIVERT) 25 MG tablet Abhishek e 25 mg by mouth Two Times Daily ondansetron (ZOFRAN-ODT) 4 MG disinte grating tablet dissolve ONE TABLET BY MOUTH EVERY FOUR HOURS NEEDED FOR NAUSEA DIRECTED 5 Polyethyl Glycol-Propyl Glycol (SYSTA NE) 0.4-0.3 % SOLN Place 1 drop into both eyes Four times daily as needed predniSONE 10 MG Oral Tablet (DELTASO NE) 60 mg x1 day, 50mg x 1 day, 40 mg x 1 day, 30 mg x day, 20 mg x 1, 10 x 1 day, 5 x 1 day (Patient not taking: Reported on 021) 22 tablet 0 PRODIGY LANCETS 28G MISC Use as direc enio. To test blood glucose 4x daily. Dx:E11.65 150 each 5 Topiramate 50 MG Oral Tablet (TOPAMAX ) Take 2 tablets by mouth Two Times Daily 360 tablet 3 TRESIBA FLEXTOUCH 200 UNIT/ML shaan ntrated injection Inject 84 Units into the skin daily 5 Ubrogepant 50 MG Oral Tablet Take 50 mg by mouth Two times daily as needed Take one for acute head ache, can repeat after 2 hours if needed. 10 tablet 11 Scheduled Meds: amLODIPine 5 mg Oral Daily aspirin 325 mg Oral Daily atorvastatin 80 mg Oral QPM ezetimibe 10 mg Oral Daily folic acid 1 mg Oral Daily gabapentin 900 mg Oral Nightly insulin glargine 52 Units Subcutaneous Nightly insulin lispro 1-16 Units Subcutaneous 3 x Daily with Meals labetalol 200 mg Oral QPM levocetirizine 5 mg Oral Daily lisinopril 5 mg Oral Daily magnesium oxide 400 mg Oral TID topiramate 100 mg Oral BID Vitamin B-2 200 mg Oral Nightly Continuous Infusions: PRN Meds:.dextrose, glucagon (human rec ombinant), glucose, meclizine, perflutren lipid microsphere s TECHNICAL DESCRIPTION: This digital EEG was recorded using 2 EKG and 21 scalp and/or ear electrodes. It was reviewed in referential and bipolar montages follow ing reformatting in the 10-20 International electrode placement system. In her best awake and alert state, the background includes some low amplitude posterior activity that a ttenuates with eye opening. No clear drowsiness, or sleep were seen . Hyperventilation is omitted due to COVI D 19. Photic stimulation with flash frequenci es of 2-21 Hz is associated with low amplitude, photic d riving, best seen at 6 Hz to 18 Hz. EKG review reveals tachycardia. CLINICAL IMPRESSION: This portable EEG done in the awake state is is abnormal due to : Low amplitude background with no clear PDR. There were no clear epileptiform abnorm alities seen. Performing Organization Address City/State/ZIP Code P italo Number EXTERNAL NON-INTERFACED LAB * Urinalysis with microscopic (04/06/2021 9:22 AM EDT) Color Yellow [facility] Clarity Sl Cloudy [facility] Specific 1.010 1.003 - 1.030 [facility] PH Urine 5.0 5.0 - 8.0 [facility] Total Protein Negative Negative mg/dL [facility] Glucose UA >500 (A) Negative mg/dL [facility] Ketone Urine Negative Negative mg/dL [facility] Bilirubin Negative Negative [facility] Hemoglobin, 1+ (A) Negative [facility] Urine [facility] Leukocyte Negative Negative Luis/uL [facility] Esterase [facility] Nitrite Negative Negative [facility] WBC <1 0 - 5 /HPF [facility] RBC 2 0 - 3 /HPF [facility] Bacteria, UA 1+ (A) None /HPF [facility] Squam Epithel, 2 (A) None /HPF [facility] Specimen Urine Performing Organization Address City/State/ZIP Code P italo Number [facility] [address] [place] [address] PATHOLOGY [facility] [address] [place], [place] [address] Clin Pathology * CBC and Differential (04/06/2021 8:57 AM EDT) White Blood 19.3 (H) 4.00 - 10.00 10*3/[facility]L [facility] Red Blood Cell 4.33 4.10 - 5.30 10*6/uL [facility] Hemoglobin 12.1 11.5 - 15.5 g/dL [facility] Hematocrit 37.8 36.0 - 45.0 % [facility] Mean Cell 87.4 80.0 - 96.0 fL [facility] Volume [facility] Mean Cell 27.9 27.0 - 33.0 pg [facility] Hemoglobin [facility]ology Mean Cell Hgb 31.9 (L) 32 - 36 g/dL [facility] Conc [facility]ology Red Cell Dist 14.0 11.5 - 14.5 % [facility] Width [facility]ology Platelet Count 363 150 - 400 10*3/uL [facility] Differential Automated Diff [facility] Type [facility] Neutrophil 62 % [facility] Lymphocyte 26 % [facility] Monocyte 8 % [facility] Eosinophil 3 % [facility] Basophil 1 % [facility] Abs Neutrophil 12.16 (H) 1.80 - 7.00 10*3/uL [facility] Abs Lymphocyte 4.92 (H) 1.20 - 4.00 10*3/uL [facility] Abs Monocyte 1.51 (H) 0.00 - 0.80 10*3/uL [facility] Abs Eosinophil 0.59 (H) 0.00 - 0.50 10*3/uL [facility] Abs Basophil 0.10 0.00 - 0.20 10*3/uL [facility] Nucleated Red 0 0 - 0 /100{WBCs} [facility] Blood Cells [facility] Pathology Specimen EDTA Whole Blood Performing Organization Address City/[facility]/ZIP Code P italo Number [facility] [address] [place], [place] [address] PATHOLOGY [facility] [address] [place], [place] [address] Clin Pathology * POCT glucose, docked (04/06/2021 8:44 AM EDT) POC Glucose 204 (H) 70 - 140 mg/dL [facility] POC Specimen Whole Blood Performing Organization Address City/[facility] P italo Number POINT OF CARE TEST [address] [place] [address] [facility] POC [address] [place] [address] * XR Chest Frontal Only (04/06/2021 7:00 AM EDT) Specimen Narrative Performed At [facility] PROCEDURE INFORMATION: Exam: XR Chest Exam date and time: 04/06/2021 6:58 AM Age: 45 years old Clinical indication: Other: Eval pna TECHNIQUE: Imaging protocol: XR of the chest. Views: 1 view. COMPARISON: CT Thorax^CHEST WO (Adult) 04/14/2018 12 :31 PM FINDINGS: Lungs: No acute infiltrate is seen. Pleural spaces: No pneumothorax or pleu ral effusion is seen. Heart/Mediastinum: No cardiomegaly. Bones/joints: The visualized osseous st ructures are unremarkable. No acute fracture or dislocation is seen. IMPRESSION: No acute infiltrate, pneumothorax or pl eural effusion is seen. THIS DOCUMENT HAS BEEN ELECTRONICALLY S IGNED BY MOSES HARRIS MD Procedure Note Interface, Received Via SLID System - 04/06/2021 9:27 AM EDT PROCEDURE INFORMATION: Exam: XR Chest Exam date and time: 04/06/2021 6:58 AM Age: 45 years old Clinical indication: Other: Eval pna TECHNIQUE: Imaging protocol: XR of the chest. Views: 1 view. COMPARISON: CT Thorax^CHEST WO (Adult) 04/14/2018 12:31 PM FINDINGS: Lungs: No acute infiltrate is seen. Pleural spaces: No pneumothorax or pleural effusion is seen. Heart/Mediastinum: No cardiomegaly. Bones/joints: The visualized osseous structures are unremarkable. No acute fracture or dislocation is seen. IMPRESSION: No acute infiltrate, pneumothorax or pleural effusion is seen. THIS DOCUMENT HAS BEEN ELECTRONICALLY SIGNED BY MOSES HARRIS MD Performing Organization Address City/State/ZIP Code P italo Number [facility] [address] [place] [address] * CT Head without Contrast (04/06/2021 6:05 AM EDT) Specimen Impressions Performed At IMPRESSION: [facility] 1. No acute intracranial hemorrhage or ac jia territorial infarct. 2. Encephalomalacia within the right SHEET METAL FABRICATOR distribution. Old lacunar type infarcts within bilateral basal ganglia and left thalamus, unchanged. Narrative Performed At INDICATION: new onset bilateral lower extremity weakn ess. Concern for ICH v [facility] mass. TECHNIQUE: Multidetector axial CT image s were obtained from the skull base to the vertex without administration of in travenous contrast. Coronal and sagittal reformats were also obtained. Automated dose lowering techniques and/or adjustment according to patient size we re utilized for this exam. COMPARISON: CT head dated 07/19/2020.. FINDINGS: Redemonstration of encephalom alacia in the right SHEET METAL FABRICATOR distribution. Old lacunar type infarcts are present withi n bilateral basal ganglia and left thalamus, unchanged. No acute intracran ial hemorrhage or acute territorial infarction is evident. Ex vacuo dilatio n of the occipital horn of the right lateral ventricle. Mild cerebral volume loss with commensurate dilation of the ventricles and sulci. No mass effect or midline shift is appreciated. The basal cisterns are patent. No extra-axial flu id collections are identified. The calvarium is intact. Mild mucosal t hickening of the right maxillary sinus. The remainder of the paranasal sinuses and mastoid air cells are clear. Procedure Note Interface, Received Via SLID System - 04/06/2021 1:01 PM EDT INDICATION: new onset bilateral lower extremity weakness. Concern for ICH v mass. TECHNIQUE: Multidetector axial CT images were obtained from the skull base to the vertex without administration of intravenous contrast. Coronal and sagittal reformats were also obtained. Automated dose lowering techniques and/or adjustment according to patient size were utilized for this exam. COMPARISON: CT head dated 07/19/2020.. FINDINGS: Redemonstration of encephalomalacia in the right SHEET [employer]IC[employer] distribution. Old lacunar type infarcts are present within bilateral basal ganglia and left thalamus, unchanged. No acute intracranial hemorrhage or acute territorial infarction is evident. Ex vacuo dilation of the occipital horn of the right lateral ventricle. Mild cerebral volume loss with commensurate dilation of the ventricles and sulci. No mass effect or midline shift is appreciated. The basal cisterns are patent. No extra-axial fluid collections are identified. The calvarium is intact. Mild mucosal thickening of the right maxillary sinus. The remainder of the paranasal sinuses and mastoid air cells are clear. IMPRESSION: 1. No acute intracranial hemorrhage or acute territorial infarct. 2. Encephalomalacia within the right PC A distribution. Old lacunar type infarcts within bilateral basal ganglia and left thalamus, unchanged. Performing Organization Address City/[facility]/ZIP Code P italo Number [facility] [address] [place] [address] * TSH (04/06/2021 5:38 AM EDT) TSH 1.650 0.27 - 4.20 u[IU]/mL [facility] Clin Pathology Specimen Plasma Performing Organization Address City/[facility]/ZIP Code P italo Number [facility] CLINICAL [address] [place], [place] [address] PATHOLOGY [place] [address] [address] Clin Pathology * Partial Thromboplastin Time (PTT) (04/06/2021 5:38 AM EDT) PTT 29.9 24.0 - 33.0 s [facility] Clin Pathology Specimen Plasma Performing Organization Address [facility] P italo Number [address] [address] Clin Pathology * Lipid panel (04/06/2021 5:38 AM EDT) Cholesterol 186 <200 mg/dL [facility] Clin Pathology Triglyceride 368 (H) <150 mg/dL [facility] Clin Pathology HDL Cholesterol 43 (L) >50 mg/dL [facility] Clin Pathology LDL Cholesterol 69 <100 mg/dL [facility] Clin Pathology VLDL 74 (H) 16 - 42 mg/dl [facility] Clin Pathology Non HDL 143 (H) <130 mg/dL [facility] Clin Pathology Specimen Plasma Performing Organization Address [facility] P italo Number [address] 132 10 Clin Pathology * Hemoglobin A1c (04/06/2021 5:38 AM EDT) Hemoglobin A1C 10.4 (H) 4.0 - 6.0 % [facility] Comment: [facility] Clin (NOTE) Pathology <5.7% Average risk of diabetes(ADA) 5.7-6.4% Increased risk of diabetes(ADA) >/= 6.5% Diagnostic for diabetes(ADA) Estimated Avg 252 (H) <126 mg/dL [facility] Glucose [facility] Clin Pathology Specimen Whole Blood Performing Organization Address City/[facility]/ZIP [facility] P italo Number [address] [address] Clin Pathology * Respiratory Pathogen Panel (04/06/2021 5:38 AM EDT) Special Request None [facility] Respiratory PCR PCR Results [facility] CLINICAL PATHOLOGY Culture/Results See Labs Tab for 2019 nCoV [facility] Up[facility] te RT-PCR results [facility] Clin Pathology Adenovirus Not Detected [facility] Clin Pathology Coronavirus Not Detected [facility] [address] [facility] Clin Pathology Coronavirus Not Detected [facility] HKU1 [facility] Pathology Coronavirus Not Detected [facility] NL63 [facility] Clin Pathology Coronavirus Not Detected [facility] OC43 [facility] Clin Pathology Human Not Detected [facility] Metapneumovirus [facility] Clin Pathology Rhinovirus/ Not Detected [facility] Enterovirus [facility] Clin Pathology Influenza A Not Detected [facility] Clin Pathology Influenza B Not Detected [facility] Clin Pathology Parainfluenza Not Detected [facility] virus 1 [facility] Clin Pathology Parainfluenza Not Detected [facility] virus 2 [facility] Pathology Parainfluenza Not Detected [facility] virus 3 [facility] Pathology Parainfluenza Not Detected [facility] virus 4 [facility] Clin Pathology RSV Not Detected [facility] Clin Pathology Bordetella Not Detected [facility] pertussis [facility] Clin Pathology Chlamydia Not Detected [facility] pneumoniae [facility] Clin Pathology Mycoplasma Not Detected [facility] pneumoniae [facility] Clin Pathology Bordetella Not Detected [facility] parapertussis [facility] Clin Pathology Specimen Nasopharyngeal Swab Performing Organization Address City/[facility] P italo Number [facility] CL[facility]ICAL [address] [place], [place] [address] [address] Clin Pathology * CK (04/06/2021 5:38 AM EDT) CK 61 20 - 180 U/L [facility] Clin Pathology Specimen Plasma Performing Organization Address City/[facility]/ZIP Code P italo Number [facility] CLINICAL [address] [place], [place] [address] 132 10 Clin Pathology * Magnesium Level (04/06/2021 5:38 AM EDT) Magnesium 1.9 1.6 - 2.6 mg/dL [facility] Clin Pathology Specimen Plasma Performing Organization Address City/[facility]/ZIP Code P italo Number [facility] CL[facility]ICAL [address] [place], [place] 1321 PATHOLOGY [facility] [address] [place], [place] [address] Clin Pathology * Troponin T High Sensitivity (04/06/2021 5:38 AM EDT) Troponin T High 27 (H) <14 ng/L [facility] Sensitivity [facility] Clin Pathology Specimen Plasma Performing Organization Address [facility] P italo Number [facility] CLINICAL [address] [place], [place] 1321 PATHOLOGY [facility] [address] [place], [place] [address] Clin Pathology * Protime-INR (04/06/2021 5:38 AM EDT) PT Patient 13.5 11.6 - 14.0 s [facility] Clin Pathology Int'l 1.07Comment: Routine intensity [facility] U pstate Normalized oral anticoagulation INR is Med Univ Clin Ratio typically 2.0-3.0. Target INR Patholo gy must be clinically individualized. Specimen Plasma Performing Organization Address [facility] P italo Number [facility] CLINICAL [address] [place], [place] [address] [address] 10 Clin Pathology * COVID-19 PCR (04/06/2021 5:38 AM EDT) Specimen Nasopharyngeal Swab [facility] Description CLINICAL PATHOLOGY SARS CoV-2 2019 nCoV Real-Time RT-PCR: 2019 nCoV Real-Dominick e [facility] NOT DETECTED RT-PCR: NOT DETECTED Med [facility] Clin Pathology Assay performed Test performed using [employer] [facility] Respiratory Panel. Med [facility] Clin Pathology First COVID-19 UNKNOWN [facility] Test? CLINICAL PATHOLOGY Employed in UNKNOWN [facility] CLINICAL setting? PATHOLOGY Symptomatic for UNKNOWN [facility] COVID-19 as CLINICAL defined by CDC? PATHOLOGY Date of symptom UNKNOWN [facility] onset? CLINICAL ([id number]) PATHOLOGY Hospitalized UNKNOWN [facility] for COVID-19? CLINICAL PATHOLOGY Admitted to ICU UNKNOWN [facility] for COVID-19? CLINICAL PATHOLOGY Resident in a UNKNOWN [facility] CLINICAL (group) care PATHOLOGY setting? ? UNKNOWN [facility] CLINICAL PATHOLOGY Specimen Nasopharyngeal Swab Performing Organization Address City/[facility]/ZIP Code P italo Number [facility] CL[facility]ICAL [address] [place], [place] [address] PATHOLOGY [place] [address] [address] [place], [place] [address] Clin Pathology * Comprehensive Metabolic Panel (04/06/2021 5:38 AM EDT) Albumin 4.2 3.5 - 5.2 g/dL [facility] Clin Pathology Bilirubin, 0.2 <1.2 mg/dL [facility] Total [facility] Clin Pathology Calcium 9.9 8.6 - 10.0 mg/dL [facility] Clin Pathology Chloride 101 98 - 107 mmol/L [facility] Clin Pathology Creatinine 1.46 (H) 0.50 - 0.90 mg/dL [facility] Clin Pathology Glucose 265 (H) 70 - 140 mg/dL [facility] Clin Pathology Alkaline 110 (H) 35 - 104 U/L [facility] Phosphatase [facility] Clin Pathology Potassium 4.4 3.4 - 5.1 mmol/L [facility] Clin Pathology Total Protein 7.7 6.4 - 8.3 g/dL [facility] Clin Pathology Sodium 131 (L) 136 - 145 mmol/L [facility] Clin Pathology AST/SGO 8 <32 U/L [facility] Pathology Blood Urea 39 (H) 6 - 20 mg/dL [facility] Nitrogen [facility] Clin Pathology Osmolality, Eduardo 291 275.0 - 300.0 [facility] mosm/kg [facility] Clin Pathology BUN/Cre Ratio 27 [facility] Clin Pathology Bicarbonate 16 (L) 22 - 29 mmol/L [facility] Clin Pathology ALT/SGP 9 <33 U/L [facility] Clin Pathology Anion Gap 15 8 - 15 mmol/L [facility] Clin Pathology GFR Non 42 (L) >60 mL/min/1.73m2 [facility] Upsta e [place] 2008 Med Univ Clin CDK-EPI Pathology GFR 49 (L) >60 mL/min/1.73m2 [facility] 2008 [facility] Clin CKD-EPI Pathology Specimen Plasma Performing Organization Address City/[facility]/ZIP Code P italo Number [facility] CLINICAL [address] [place], [place] [address] PATHOLOGY [place] [address] [place], [place] [address] Clin Pathology * CBC and Differential (04/06/2021 5:38 AM EDT) White Blood 19.2 (H) 4.00 - 10.00 10*3/uL [facility] Upst ate Cell [facility] Clin Pathology Red Blood Cell 4.97 4.10 - 5.30 10*6/uL [facility]ology Hemoglobin 13.8 11.5 - 15.5 g/dL [facility] Clin Pathology Hematocrit 43.2 36.0 - 45.0 % [facility] Clin Pathology Mean Cell 87.1 80.0 - 96.0 fL [facility] Volume [facility] Clin Pathology Mean Cell 27.8 27.0 - 33.0 pg [facility] Hemoglobin [facility] Clin Pathology Mean Cell Hgb 31.9 (L) 32 - 36 g/dL [facility] Conc [facility] Clin Pathology Red Cell Dist 14.4 11.5 - 14.5 % [facility] Width [facility] Clin Pathology Platelet Count 393 150 - 400 10*3/uL [facility] Clin Pathology Differential Automated Diff [facility] Type [facility] Clin Pathology Neutrophil 64 % [facility] Pathology Lymphocyte 25 % [facility] Pathology Monocyte 7 % [facility] Pathology Eosinophil 3 % [facility] Clin Pathology Basophil 1 % [facility] Clin Pathology Abs Neutrophil 12.16 (H) 1.80 - 7.00 10*3/uL [facility] Clin Pathology Abs Lymphocyte 4.79 (H) 1.20 - 4.00 10*3/uL [place] [facility] Clin Pathology Abs Monocyte 1.41 (H) 0.00 - 0.80 10*3/uL [place] [facility] [facility] Clin Pathology Abs Eosinophil 0.59 (H) 0.00 - 0.50 10*3/uL [facility] Pathology Abs Basophil 0.23 (H) 0.00 - 0.20 10*3/uL [facility] Clin Pathology Nucleated Red 0 0 - 0 /100{WBCs} [facility] Blood Cells [facility] Clin Pathology Specimen EDTA Whole Blood Performing Organization Address City/State/ZIP Code P italo Number [facility] CLINICAL [address] [place], [place] [address] PATHOLOGY [facility] [address] [place], [place] [address] Clin Pathology * EKG 12-LEAD - CMAXX REPORT (04/06/2021 5:36 AM EDT) Narrative Performed At This result has an attachment that is n ot available. * EKG 12-LEAD - CMAXX REPORT (04/06/2021 5:36 AM EDT) Narrative Performed At This result has an attachment that is n ot available. * EKG 12 Lead (04/06/2021 5:36 AM EDT) Specimen Narrative Performed At Ventricular Rate: [facility] EKG 100 BPM Atrial Rate: 100 BPM P-R Interval: 168 ms QRS Duration: 86 ms Q-T Interval: 362 ms QTC Calculation(Bazett): 466 ms P Underwood: 46 degrees R Underwood: 14 degrees T Underwood: 40 degrees : SINUS RHYTHM : LOW VOLTAGE QRS : ABNORMAL ECG : WHEN COMPARED WITH ECG OF 14-APR-2018 18:42, : NON SPECIFIC T WAVE ABNORMALITY INFER IOR LEADS : Confirmed by Elver Zayas ([id number]) on 04/07/2021 9:14:15 PM Procedure Note Interface, Received Via [employer] - 04/07/2021 9:14 PM EDT Ventricular Rate: 100 BPM Atrial Rate: 100 BPM P-R Interval: 168 ms QRS Duration: 86 ms Q-T Interval: 362 ms QTC Calculation(Bazett): 466 ms P Underwood: 46 degrees R Underwood: 14 degrees T Underwood: 40 degrees : SINUS RHYTHM : LOW VOLTAGE QRS : ABNORMAL ECG : WHEN COMPARED WITH ECG OF 14-APR-2018 18:42, : NON SPECIFIC T WAVE ABNORMALITY INFERIOR LEADS : Confirmed by Elver Zayas ([id number]) on 04/07/2021 9:14:15 PM Performing Organization Address City/State/ZIP Code P italo Number [facility] EKG * EKG 12-LEAD - CMAXX REPORT (04/06/2021 5:36 AM EDT) Narrative Performed At This result has an attachment that is n ot available. * POCT glucose, docked (04/05/2021 6:17 PM EDT) POC Glucose 374 (H) 70 - 140 mg/dL [facility] POC Specimen Whole Blood Performing Organization Address City/State/ZIP Code P italo Number POINT OF CARE TEST [address] [place] [address] [facility] POC [address] [place] [address] documented in this encounter Visit Diagnoses Diagnosis Leg weakness, bilateral - Primary Other musculoskeletal symptoms referabl e to limbs Weakness Other malaise and fatigue documented in this encounter Administered Medications Action Date Dose Rate Site Medication Order MAR Action 04/09/2021 9:48 AM EDT 650 mg acetaminophen (TYLENOL) tablet 650 mg Given 650 mg, Oral, Every 6 hours PRN, Mild Pain (Pain Scale Score 1-3), Starting o n 04/08/21 at 1741, For 30 days, Maximu m daily dose of acetaminophen is 3,000 mg from all sources in 24 hours. 650 mg Given 04/08/2021 6:27 PM EDT 04/09/2021 9:35 AM EDT 5 mg amlodipine (NORVASC) tablet 5 mg Given 5 mg, Oral, Daily Standard, First dose on 04/06/21 at 0900, For 30 days, Check vital signs before administering 5 mg Given 04/08/2021 8:57 AM EDT 5 mg Given 04/06/2021 8:34 AM EDT 04/09/2021 9:34 AM EDT 325 mg aspirin tablet 325 mg Given 325 mg, Oral, Daily Standard, First dose on 04/06/21 at 0900, For 30 days 325 mg Given 04/08/2021 8:57 AM EDT 325 mg Given 04/07/2021 8:59 AM EDT 04/08/2021 9:20 PM EDT 80 mg atorvastatin (LIPITOR) tablet 80 mg Given 80 mg, Oral, Every evening, First dose on 04/06/21 at 2100, For 30 doses 80 mg Given 04/07/2021 9:56 PM EDT 80 mg Given 04/07/2021 12:38 AM EDT dextrose 50 % IV solution 25 mL 25 mL, Intravenous, PRN, Other, blood glucose <55, Starting on 04/06/21 at 0635, For 30 days, Not for midline administration. dextrose 50 % IV solution 25 mL 25 mL, Intravenous, PRN, Other, blood glucose <55, Starting on 04/07/21 at 1525, For 30 days, Not for midline administration. 04/09/2021 9:34 AM EDT 10 mg ezetimibe (ZETIA) tablet 10 mg Given 10 mg, Oral, Daily Standard, First dos e on 04/06/21 at 0900, For 30 days 10 mg Given 04/08/2021 8:58 AM EDT 10 mg Given 04/07/2021 8:59 AM EDT 04/09/2021 9:35 AM EDT 1 mg folic acid (FOLVITE) tablet 1 mg Given 1 mg, Oral, Daily Standard, First dose on 04/06/21 at 0900, For 30 days 1 mg Given 04/08/2021 8:57 AM EDT 1 mg Given 04/07/2021 8:59 AM EDT 04/08/2021 9:20 PM EDT 900 mg gabapentin (NEURONTIN) capsule 900 mg Given 900 mg, Oral, Nightly, Indications: Neuropathic Pain, First dose on 04/06/21 at 2200, For 30 days 900 mg Given 04/07/2021 9:56 PM EDT 900 mg Given 04/07/2021 12:38 AM EDT glucagon (human recombinant) (GLUCAGEN) injection 1 mg 1 mg, Intramuscular, PRN, for glucose <55 without IV access, Starting on 04/06/21 at 0635, For 30 days glucagon (human recombinant) (GLUCAGEN) injection 1 mg 1 mg, Intramuscular, PRN, for glucose <55 without IV access, Starting on 04/07/21 at 1525, For 30 days glucose (GLUTOSE) 40 % oral gel 15 g 15 g, Oral, PRN, Low blood sugar, for gluose 55-69 mg/dl and able to take PO, Starting on 04/06/21 at 0635, For 30 days glucose (GLUTOSE) 40 % oral gel 15 g 15 g, Oral, PRN, Low blood sugar, for gluose 55-69 mg/dl and able to take PO, Starting on 04/07/21 at 1525, For 30 days 04/09/2021 9:35 AM EDT 5,000 Units heparin (porcine) 5000 UNIT/ML injection Given 5,000 Units 5,000 Units, Subcutaneous, 2 Times Daily, First dose on [place] 04/07/21 at 2100 , For 30 days 5,000 Units Given 04/08/2021 9:21 PM EDT 5,000 Units Given 04/08/2021 8:58 AM EDT 04/08/2021 9:23 PM EDT 52 Units insulin glargine (LANTUS) injection 52 Given Units 52 Units, Subcutaneous, Nightly, First dose on Thu04/06/21 at 2200, For 30 days , For blood glucose less than 70 mg/dL: follow hypoglycemia protocol ( ) and notify provider. For blood glucose values between 70 mg/dL and 100 mg/dL a t bedtime: provide snack (15 grams of carbohydrates) with some protein. Administer FULL DOSE of insulin glargin e (LANTUS) after snack. Record snack in I&O's. For blood glucose more than 40 0 mg/dL: notify provider 52 Units Given 04/07/2021 9:57 PM EDT 52 Units Given 04/06/2021 10:07 PM EDT 04/09/2021 1:09 PM EDT 14 Units insulin lispro (HUMALOG) injection Given CUSTOMIZABLE DOSE INSULIN patients 1-40 Units 1-40 Units, Subcutaneous, Three Times Daily-With Meals, First dose on Thu04/09/21 at 0800, For 30 days, Nursing MUST open the 'SQ Insulin Dosing Charts ' Sidebar Report, or, the Patient Summary or Summary Report within the ED. , Patient Type: Eating Meals, <70 give (units or other) for NPO or <15 gm carbohydrates solid food or full liquid (<30 gm if only clear liquid consumed): Hypoglycemia Protocol and then, once blood glucose level > 70 give insulin dose in 71-90 row regardless of new blood glucose level., 71-90 give (units ) for NPO or <15 gm carbohydrates solid food or full liquid (<30 gm if only clear liquid consumed): 0, 91-130 give (units) for NPO or <15 gm carbohydrates solid food or full liquid (<30 gm if only clear liquid consumed): 0, 131-150 give (units) for NPO or <15 gm carbohydrates solid food or full liquid (<30 gm if only clear liquid consumed): 0, 151-200 give (units) for NPO or <15 gm carbohydrates solid food or full liquid (<30 gm if only clear liquid consumed): 4, 201-250 give (units) for NPO or <15 gm carbohydrates solid food or full liquid (<30 gm if only clear liquid consumed): 6, 251-300 give (units) for NPO or <15 gm carbohydrates solid food or full liquid (<30 gm if only clear liquid consumed): 8, 301-350 give (units) for NPO or <15 gm carbohydrates solid food or full liquid (<30 gm if only clear liquid consumed): 10, 351-400 give (units) for NPO or <15 gm carbohydrates solid food or full liquid (<30 gm if only clear liquid consumed): 12, >401 give (units) AND NOTIFY for NPO or <15 gm carbohydrates solid food or full liquid (<30 gm if only clear liquid consumed): 14, <70 give (units or other) for 15-30 gm carbohydrates solid food or full liquid (30-45 gm if only clear liquid consumed): Hypoglycemia Protocol and then, once blood glucose level > 70 giv e insulin dose in 71-90 row regardless of new blood glucose level., 71-90 give (units) for 15-30 gm carbohydrates watson d food or full liquid (30-45 gm if only clear liquid consumed): 4, 91-130 give (units) for 15-30 gm carbohydrates watson d food or full liquid (30-45 gm if only clear liquid consumed): 6, 131-150 give (units) for 15-30 gm carbohydrates watson d food or full liquid (30-45 gm if only clear liquid consumed): 7, 151-200 give (units) for 15-30 gm carbohydrates watson d food or full liquid (30-45 gm if only clear liquid consumed): 8, 201-250 give (units) for 15-30 gm carbohydrates watson d food or full liquid (30-45 gm if only clear liquid consumed): 10, 251-300 giv e (units) for 15-30 gm carbohydrates watson d food or full liquid (30-45 gm if only clear liquid consumed): 12, 301-350 giv e (units) for 15-30 gm carbohydrates watson d food or full liquid (30-45 gm if only clear liquid consumed): 14, 351-400 giv e (units) for 15-30 gm carbohydrates watson d food or full liquid (30-45 gm if only clear liquid consumed): 16, >401 give (units) AND NOTIFY for 15-30 gm carbohydrates solid food or full liquid (30-45 gm if only clear liquid consumed): 18, <70 give (units or other ) for >30 gm carbohydrates solid food or full liquid (>45 gm if only clear liqui d consumed): Hypoglycemia Protocol and then, once blood glucose level > 70 giv e insulin dose in 71-90 row regardless of new blood glucose level., 71-90 give (units) for >30 gm carbohydrates solid food or full liquid (>45 gm if only clear liquid consumed): 6, 91-130 give (units) for >30 gm carbohydrates solid food or full liquid (>45 gm if only clear liquid consumed): 8, 131-150 give (units) for >30 gm carbohydrates solid food or full liquid (>45 gm if only clear liquid consumed): 10, 151-200 giv e (units) for >30 gm carbohydrates solid food or full liquid (>45 gm if only clear liquid consumed): 12, 201-250 giv e (units) for >30 gm carbohydrates solid food or full liquid (>45 gm if only clear liquid consumed): 14, 251-300 giv e (units) for >30 gm carbohydrates solid food or full liquid (>45 gm if only clear liquid consumed): 16, 301-350 giv e (units) for >30 gm carbohydrates solid food or full liquid (>45 gm if only clear liquid consumed): 18, 351-400 giv e (units) for >30 gm carbohydrates solid food or full liquid (>45 gm if only clear liquid consumed): 20, >401 give (units) AND NOTIFY for >30 gm carbohydrates solid food or full liquid (>45 gm if only clear liquid consumed): 22 12 Units Given 04/09/2021 9:36 AM EDT 04/08/2021 9:20 PM EDT 200 mg labetalol (NORMODYNE) tablet 200 mg Given 200 mg, Oral, Every evening, First dose (after last reorder) on 04/06/21 at 2100, For 30 doses, Check vital signs before administering 200 mg Given 04/07/2021 9:56 PM EDT 200 mg Given 04/07/2021 12:38 AM EDT 04/09/2021 9:39 AM EDT 5 mg levocetirizine (XYZAL) tablet 5 mg Given 5 mg, Oral, Daily Standard, First dose on 04/06/21 at 0900, For 30 days 5 mg Given 04/08/2021 10:18 AM EDT 5 mg Given 04/07/2021 3:17 PM EDT 04/09/2021 9:35 AM EDT 5 mg lisinopril (ZESTRIL) tablet 5 mg Given 5 mg, Oral, Daily Standard, First dose on 04/06/21 at 0900, For 30 days, Check vital signs before administering 5 mg Given 04/08/2021 8:57 AM EDT 5 mg Given 04/06/2021 8:35 AM EDT 04/09/2021 4:52 PM EDT 400 mg magnesium oxide (MAG-OX) tablet 400 mg Given 400 mg, Oral, Three Times Daily Standard, First dose on 04/06/21 at 0900, For 30 days 400 mg Given 04/09/2021 9:35 AM EDT 400 mg Given 04/08/2021 9:20 PM EDT 04/09/2021 9:35 AM EDT 100 mg topiramate (TOPAMAX) tablet 100 mg Given 100 mg, Oral, 2 Times Daily, First dose on 04/06/21 at 0900, For 30 doses 100 mg Given 04/08/2021 9:20 PM EDT 100 mg Given 04/08/2021 8:58 AM EDT 04/08/2021 9:20 PM EDT 200 mg Vitamin B-2 (RIBOFLAVIN) tablet TABS 200 Given mg 200 mg, Oral, Nightly, First dose (afte r last modification) on 04/06/21 at 2200, For 30 doses 200 mg Given 04/07/2021 9:57 PM EDT 200 mg Given 04/07/2021 12:38 AM EDT Action Date Dose Rate Site Medication Order MAR Action 04/06/2021 7:11 AM EDT 300 mg gabapentin (NEURONTIN) capsule 300 mg Given 300 mg, Oral, Once, Indications: Neuropathic Pain, Due to missed dose, O n 04/06/21 at 0645, For 1 dose 04/08/2021 6:24 PM EDT 14 Units insulin lispro (HumaLOG) injection HIGH Given DOSE EATING INSULIN patients 1-22 Units 1-22 Units, Subcutaneous, Three Times Daily-With Meals, First dose on 04/07/21 at 1800, For 30 days, Nursing MUST open the 'SQ Insulin Dosing Charts ' Sidebar Report, or, the Patient Summary or Summary Report within the ED. 8 Units Given 04/08/2021 1:30 PM EDT 12 Units Given 04/08/2021 8:58 AM EDT 04/07/2021 1:54 PM EDT 12 Units insulin lispro (HumaLOG) injection Given MEDIUM DOSE EATING INSULIN patients 1-1 6 Units 1-16 Units, Subcutaneous, Three Times Daily-With Meals, First dose on 04/06/21 at 0800, For 30 days, Nursing MUST open the 'SQ Insulin Dosing Charts ' Sidebar Report, or, the Patient Summary or Summary Report within the ED. 5 Units Given 04/07/2021 8:59 AM EDT 10 Units Given 04/06/2021 8:07 PM EDT 04/06/2021 5:52 AM EDT 1,000 mLs 999 mL/hr lactated ringers bolus 1,000 mL New Bag 1,000 mL, Intravenous, Once, On 04/06/21 at 0445, For 1 dose documented in this encounter Active and Recently Administered Medications Times are shown in EDT. 04/08/2021 04/09/2021 Medication Order 04/07/2021 0857 (Given - Provider: Brett arias RN) 0935 (Given - Provider: Mick Dupree) amlodipine (NORVASC) tablet 5 mg 0902 (Not Given - 5 mg, Oral, Daily Standard, First dose Provider: Taylor mccormickirmurtaza Pat on 04/06/21 at 0900, For 30 days, PETER Stewart - Michelle son: Check vital signs before administering Other - Comme nt: Hold med per Wenceslao Eisenberg MD) 0857 (Given - Provider: Brett arias RN) 0934 (Given - Provider: Mick Dupree) aspirin tablet 325 mg 0859 (Given - 325 mg, Oral, Daily Standard, First Provider: Chang rly G dose on 04/06/21 at 0900, For 30 days PETER Stewart) 2120 (Given - Provider: Bhavya Power RN) 2100 (Due) atorvastatin (LIPITOR) tablet 80 mg 0038 (Given - 80 mg, Oral, Every evening, First dose Provider: Carrie vázquez on 04/06/21 at 2100, For 30 doses PETER Olmstead)2155 (Given - Provider: Nela Olmtsead RN) 0858 (Given - Provider: Brett arias RN) 0934 (Given - Provider: Mick Dupree) ezetimibe (ZETIA) tablet 10 mg 0859 (Given - 10 mg, Oral, Daily Standard, First dose Provider: Adilia invirly G on 04/06/21 at 0900, For 30 days PETER Stewart) 0857 (Given - Provider: Brett arias RN) 0935 (Given - Provider: Mick Dupree) folic acid (FOLVITE) tablet 1 mg 59 (Given - 1 mg, Oral, Daily Standard, First dose Provider: Taylor nvirly G on 04/06/21 at 0900, For 30 days PETER Stewart) 2119 (Given - Provider: Bhavya Power RN) 2199 (Due) gabapentin (NEURONTIN) capsule 900 mg 37 (Given - 900 mg, Oral, Nightly, Indications: Provider: Katlyn godfrey Neuropathic Pain, First dose on [facility] PETER Olmstead)215504/06/21 at 2200, For 30 days (Given - Provider: Nela Olmstead RN) 0858 (Given - Provider: Brett arias RN)2120 (Given - Provider: Bhavya Power RN) 0935 (Given - Provider: Mick Dupree)2099 (Due) heparin (porcine) 5000 UNIT/ML injection 2155 (Given - 5,000 Units Provider: Nela 5,000 Units, Subcutaneous, 2 Times PETER Olmstead) Daily, First dose on 04/07/21 at 2100 , For 30 days 2122 (Given - Provider: Bhavya Power RN - Comment: BG 250) 2199 (Due) insulin glargine (LANTUS) injection 52 2156 (Given - Units Provider: Nela 52 Units, Subcutaneous, Nightly, First PETER Olmstead) dose on 04/06/21 at 2200, For 30 days , For blood glucose less than 70 mg/dL: follow hypoglycemia protocol (CM H-09) and notify provider. For blood glucose values between 70 mg/dL and 100 mg/dL a t bedtime: provide snack (15 grams of carbohydrates) with some protein. Administer FULL DOSE of insulin glargin e (LANTUS) after snack. Record snack in I&O's. For blood glucose more than 40 0 mg/dL: notify provider 0934 (Given - Provider: Mick Dupree)1309 (Given - Provider: Amparo Warren RN)1800 (Due) insulin lispro (HUMALOG) injection CUSTOMIZABLE DOSE INSULIN patients 1-40 Units 1-40 Units, Subcutaneous, Three Times Daily-With Meals, First dose on Thu04/09/21 at 0800, For 30 days, Nursing MUST open the 'SQ Insulin Dosing Charts ' Sidebar Report, or, the Patient Summary or Summary Report within the ED. , Patient Type: Eating Meals, <70 give (units or other) for NPO or <15 gm carbohydrates solid food or full liquid (<30 gm if only clear liquid consumed): Hypoglycemia Protocol and then, once blood glucose level > 70 give insulin dose in 71-90 row regardless of new blood glucose level., 71-90 give (units ) for NPO or <15 gm carbohydrates solid food or full liquid (<30 gm if only clear liquid consumed): 0, 91-130 give (units) for NPO or <15 gm carbohydrates solid food or full liquid (<30 gm if only clear liquid consumed): 0, 131-150 give (units) for NPO or <15 gm carbohydrates solid food or full liquid (<30 gm if only clear liquid consumed): 0, 151-200 give (units) for NPO or <15 gm carbohydrates solid food or full liquid (<30 gm if only clear liquid consumed): 4, 201-250 give (units) for NPO or <15 gm carbohydrates solid food or full liquid (<30 gm if only clear liquid consumed): 6, 251-300 give (units) for NPO or <15 gm carbohydrates solid food or full liquid (<30 gm if only clear liquid consumed): 8, 301-350 give (units) for NPO or <15 gm carbohydrates solid food or full liquid (<30 gm if only clear liquid consumed): 10, 351-400 give (units) for NPO or <15 gm carbohydrates solid food or full liquid (<30 gm if only clear liquid consumed): 12, >401 give (units) AND NOTIFY for NPO or <15 gm carbohydrates solid food or full liquid (<30 gm if only clear liquid consumed): 14, <70 give (units or other) for 15-30 gm carbohydrates solid food or full liquid (30-45 gm if only clear liquid consumed): Hypoglycemia Protocol and then, once blood glucose level > 70 giv e insulin dose in 71-90 row regardless of new blood glucose level., 71-90 give (units) for 15-30 gm carbohydrates watson d food or full liquid (30-45 gm if only clear liquid consumed): 4, 91-130 give (units) for 15-30 gm carbohydrates watson d food or full liquid (30-45 gm if only clear liquid consumed): 6, 131-150 give (units) for 15-30 gm carbohydrates watson d food or full liquid (30-45 gm if only clear liquid consumed): 7, 151-200 give (units) for 15-30 gm carbohydrates watson d food or full liquid (30-45 gm if only clear liquid consumed): 8, 201-250 give (units) for 15-30 gm carbohydrates watson d food or full liquid (30-45 gm if only clear liquid consumed): 10, 251-300 giv e (units) for 15-30 gm carbohydrates watson d food or full liquid (30-45 gm if only clear liquid consumed): 12, 301-350 giv e (units) for 15-30 gm carbohydrates watson d food or full liquid (30-45 gm if only clear liquid consumed): 14, 351-400 giv e (units) for 15-30 gm carbohydrates watson d food or full liquid (30-45 gm if only clear liquid consumed): 16, >401 give (units) AND NOTIFY for 15-30 gm carbohydrates solid food or full liquid (30-45 gm if only clear liquid consumed): 18, <70 give (units or other ) for >30 gm carbohydrates solid food or full liquid (>45 gm if only clear liqui d consumed): Hypoglycemia Protocol and then, once blood glucose level > 70 giv e insulin dose in 71-90 row regardless of new blood glucose level., 71-90 give (units) for >30 gm carbohydrates solid food or full liquid (>45 gm if only clear liquid consumed): 6, 91-130 give (units) for >30 gm carbohydrates solid food or full liquid (>45 gm if only clear liquid consumed): 8, 131-150 give (units) for >30 gm carbohydrates solid food or full liquid (>45 gm if only clear liquid consumed): 10, 151-200 giv e (units) for >30 gm carbohydrates solid food or full liquid (>45 gm if only clear liquid consumed): 12, 201-250 giv e (units) for >30 gm carbohydrates solid food or full liquid (>45 gm if only clear liquid consumed): 14, 251-300 giv e (units) for >30 gm carbohydrates solid food or full liquid (>45 gm if only clear liquid consumed): 16, 301-350 giv e (units) for >30 gm carbohydrates solid food or full liquid (>45 gm if only clear liquid consumed): 18, 351-400 giv e (units) for >30 gm carbohydrates solid food or full liquid (>45 gm if only clear liquid consumed): 20, >401 give (units) AND NOTIFY for >30 gm carbohydrates solid food or full liquid (>45 gm if only clear liquid consumed): 22 0858 (Given - Provider: Brett arias RN)1330 (Given - Provider: Brett Stewart RN)1824 (Given - Provider: Brett Stewart RN) insulin lispro (HumaLOG) injection HIGH 1834 (Given - DOSE EATING INSULIN patients 1-22 Units Provider: Taylor Pat (CANCELED) PETER Stewart) 1-22 Units, Subcutaneous, Three Times Daily-With Meals, First dose on 04/07/21 at 1800, For 30 days, Nursing MUST open the 'SQ Insulin Dosing Charts ' Sidebar Report, or, the Patient Summary or Summary Report within the ED. insulin lispro (HumaLOG) injection 0859 (Given - MEDIUM DOSE EATING INSULIN patients 1-16 Provider: Adilia caldwellirmurtaza Pat Units (CANCELED) PETER Stewart)1354 1-16 Units, Subcutaneous, Three Times (Given - Provi belle: Daily-With Meals, First dose on Sat Brett arias, 04/06/21 at 0800, For 30 days, Nursing RN) MUST open the 'SQ Insulin Dosing Charts ' Sidebar Report, or, the Patient Summary or Summary Report within the ED. 2119 (Given - Provider: Bhavya Power RN) 2100 (Due) labetalol (NORMODYNE) tablet 200 mg 0038 (Given - 200 mg, Oral, Every evening, First dose Provider: Madan francis (after last reorder) on 04/06/21 at PETER Olmstead)215 6 2100, For 30 doses, Check vital signs (Given - Provi belle: before administering Nela Olmstead RN) 1018 (Given - Provider: Brett arias RN) 0939 (Given - Provider: Mick Dupree) levocetirizine (XYZAL) tablet 5 mg 1517 (Given - 5 mg, Oral, Daily Standard, First dose Provider: Taylor nvirly G on 04/06/21 at 0900, For 30 days PETER Stewart) 0857 (Given - Provider: Brett arias RN) 0935 (Given - Provider: Mick Dupree) lisinopril (ZESTRIL) tablet 5 mg 0903 (Not Given - 5 mg, Oral, Daily Standard, First dose Provider: Taylor mccormickirly G on 04/06/21 at 0900, For 30 days, PETER Stewart - [place] son: Check vital signs before administering Other - Comme nt: Hold med per Wenceslao Eisenberg MD) 0858 (Given - Provider: Brett arias RN)1827 (Given - Provider: Brett Stewart RN)2120 (Given - Provider: Bhavya Power RN) 0935 (Given - Provider: Mick Dupree)1652 (Given - Provider: Amparo Warren RN)2100 (Due) magnesium oxide (MAG-OX) tablet 400 mg 1114 (Given - 400 mg, Oral, Three Times Daily Provider: Felciityvirly G Standard, First dose on 04/06/21 at PETER Stewart)183 5 0900, For 30 days (Given - Provider: Brett Stewart RN)2157 (Given - Provider: Nela Olmstead RN) 0858 (Given - Provider: Brett arias RN)2120 (Given - Provider: Bhavya Power RN) 0935 (Given - Provider: Mick Dupree)2100 (Due) topiramate (TOPAMAX) tablet 100 mg 0038 (Given - 100 mg, Oral, 2 Times Daily, First dose Provider: Madan francis on 04/06/21 at 0900, For 30 doses PETER Olmstead)0859 (Given - Provider: Brett Stewart RN)2156 (Given - Provider: Nela Olmstead RN) 2120 (Given - Provider: Bhavya Power RN) 2200 (Due) Vitamin B-2 (RIBOFLAVIN) tablet TABS 200 0038 (Given - mg Provider: Nela 200 mg, Oral, Nightly, First dose (after PETER Olmstead) 2156 last modification) on 04/06/21 at (Given - Provide r: 2200, For 30 doses Nela Olmstead RN) 04/08/2021 04/09/2021 Medication Order 04/07/2021 1827 (Given - Provider: Brett arias RN) 0948 (Given - Provider: Mick Dupree) acetaminophen (TYLENOL) tablet 650 mg 650 mg, Oral, Every 6 hours PRN, Mild Pain (Pain Scale Score 1-3), Starting o n 04/08/21 at 1741, For 30 days, Maximu m daily dose of acetaminophen is 3,000 mg from all sources in 24 hours. dextrose 50 % IV solution 25 mL 25 mL, Intravenous, PRN, Other, blood glucose <55, Starting on 04/06/21 at 0635, For 30 days, Not for midline administration. dextrose 50 % IV solution 25 mL 25 mL, Intravenous, PRN, Other, blood glucose <55, Starting on 04/07/21 at 1525, For 30 days, Not for midline administration. glucagon (human recombinant) (GLUCAGEN) injection 1 mg 1 mg, Intramuscular, PRN, for glucose <55 without IV access, Starting on 04/06/21 at 0635, For 30 days glucagon (human recombinant) (GLUCAGEN) injection 1 mg 1 mg, Intramuscular, PRN, for glucose <55 without IV access, Starting on 04/07/21 at 1525, For 30 days glucose (GLUTOSE) 40 % oral gel 15 g 15 g, Oral, PRN, Low blood sugar, for gluose 55-69 mg/dl and able to take PO, Starting on 04/06/21 at 0635, For 30 days glucose (GLUTOSE) 40 % oral gel 15 g 15 g, Oral, PRN, Low blood sugar, for gluose 55-69 mg/dl and able to take PO, Starting on 04/07/21 at 1525, For 30 days meclizine (ANTIVERT) tablet 25 mg 25 mg, Oral, 2 Times Daily PRN, Dizziness, Nausea, Starting on 04/06/21 at 0600, For 30 days perflutren lipid microspheres (DEFINITY ) injectable suspension 9.78 mg 9.78 mg (1.5 mL), Intravenous, Once PRN, Other, Echo imaging enhancement, Starting on 04/06/21 at 0634, For 72 hours documented in this encounter Additional Health Concerns Last Indicated Resolved Time Infection Onset Date 04/06/2021 04/06/2021 7:43 AM EDT COVID-19 Rule-Out 04/06/2021 04/06/2021 04/06/2021 7:43 AM EDT Respiratory Rule-Out 04/06/2021 documented as of this encounter
--- OUTSIDE RECORDS SUMMARY | 2021-07-06 15:37 | CCD | Summary of Care ---
Author Author [facility] Organization [facility] Address Unknown Phone Unavailable Care Team Providers Care Mobile Health Vehicle Operator Name Role Phone Frannie Varghese MD PCP Reason for Referral * Physical Therapy (Routine) Referred By Contact Referred To Contact Status Reason Specialty Diagnoses / Procedures Yakelin Mata MD [address] [place] [address] [place] [phone] Email: [email or web address] Open Diagnoses Sacroiliac joint disease P rocedures Physical Therapy Evaluate and Treat Electronically signed by Yakelin Mata MD at Reason for Visit * Reason Comments Follow-up * Consultation (Routine) Referred By Contact Referred To Contact Status Reason Specialty Diagnoses / Procedures Frannie Varghese MD [address] [address] Yakelin Mata MD [address] [place] [address] [place] [phone] Email: [email or web address] Open Neurology Diagnoses Repeated falls P rocedures [facility] referral Encounter Details Care Team Description Date Type Department Yakelin Mata MD [address] [place] [phone] Chronic migraine (Primary Dx); Sacroiliac joint disease; Functional neurological symptom disorder with mixed symptoms; Pseudoseizure 05/02/2021 Office Visit [facility] [address], [address] [place] [phone] Allergies Comments Active Allergy Reactions Severity Noted Date Adhesive Tape Rash Low 08/02/2020 Bee Venom Anaphylaxis High 09/07/2020 Making her "loopy" Mtvbnjdyev-Yaxu-Lqobnfua Other (See 04/15/2018 Comments) documented as of this encounter (statuses as of 05/02/2021) Medications End Date Status Medication Sig Dispensed [...] Use as 1 kit 0 0 Suppl ([employer] VOICE directed. To 9 BLOOD GLUCOSE) w/Device [...] 1 MG Take 1 mg by 3 tablet mouth daily 9 Active ondansetron (ZOFRAN-ODT) dissolve ONE 11/18 4 MG disintegrating TABLET BY 9 [...] Four times Chronic migraine daily as needed Additional Information Patient not taking. Reported on 05/02/2021 Active Admelog SoloStar 100 Inject 1 pen [...] MG Oral Take 3 270 capsule 3 07/ 12/202 Capsule capsules by 1 (Neurontin)Indications: mouth nightly Lumbar radiculopathy Active Cyclobenzaprine HCl 5 MG Take 5 mg by 0 Oral Tablet (FLEXERIL) mouth Three times daily as needed for Muscle spasms documented as of this encounter (statuses as of 05/02/2021) Active Problems Problem Noted Date Leg weakness, bilateral 04/06/2021 Status post placement of implantable loop recorder 0 02/06/2021 Aortic atherosclerosis 02/06/2021 Cryptogenic stroke 09/25/2020 Magnetic resonance imaging of brain abnormal 020 Functional neurological symptom disorder with mixed s ymptoms 04/22/2020 Intractable migraine without aura and without status migrainosus 02/09/2020 Abnormal brain MRI 01/14/2019 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 12/27/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 12/27/2018 Leukocytosis [...] as of this encounter (statuses as of 05/02/2021) Resolved Problems Problem Noted Date Resolved Date Ocular migraine with status migrainosus 12/27/2018 01/04/2019 Acute ischemic right [employer] E[employer]IPMENT [employer]IST stroke 04/14/20182018 Advanced maternal age in 04/13/2012 documented as of this encounter (statuses as of 05/02/2021) Social History Date Tobacco Use Types Packs/Day Years Used Never Smoker Smokeless Tobacco: Never Used Comments Alcohol Use Standard Drinks/Week No 0 (1 standard drink = 0.6 o z pure alcohol) Sex Assigned at Date Recorded Not on file Date Recorded COVID-19 Exposure Response 05/02/2021 11:21 AM EDT In the last month, have you been in contact with No / Unsure someone who was confirmed or suspected to have Coronavirus / COVID-19? documented as of this encounter Last Filed Vital Signs Reading Time Taken Comments Vital Sign 128/79 05/02/2021 11:33 AM EDT Blood Pressure 97 05/02/2021 11:33 AM EDT Pulse - - Temperature - - Respiratory Rate - - Oxygen Saturation - - Inhaled Oxygen Concentration 111.6 kg (246 lb) 05/02/2021 11:33 AM EDT Weight 154.9 cm (5' 1") 05/02/2021 11:33 AM EDT Height 46.48 05/02/2021 11:33 AM EDT Body Mass Index documented in this encounter Progress Notes * Yakelin Mata MD - 05/02/2021 11:40 AM EDT This document was dictated using [employer]. A reasonab le attempt at proof reading has been made to minimize errors. 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 Of note, today patient requested to be seen alone. 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 She also has chronic vertigo complaints since her stroke. As for the cause of her strokes she was found to have uncontrolled diabetes at the time, now more w ell controlled. She also was found to MTHFR mutation and HLD. She was previously a person with chronic migraines which were exacerbated by this. In addition since her last visit the patient was hospitalized due to an episode of lower extremity weakness which began acutely. She recounts to me that the s ymptoms started in the early hours of the morning and she and her daughter watch ing the [employer] when she developed sudden onset of full body shaking for 10 sec onds. There was no urination or tongue biting. After this event the patient wa s unable to lift both arms or both legs. The arms return to strength in about 4 5 minutes but the legs continue to be weak. Patient was hospitalized due to thi s event. Her initial CT was negative for hemorrhage and MRI was done which were negative for any new infarcts. She was then transferred to the general neurolo gy service for video EEG and was found to have episodes of right upper extremity shaking, left lower extremity shaking eyes rolling back and unresponsiveness wh ich were about 30 seconds and were associated with post episode confusion. Ther e were no electrographic correlates. Patient was diagnosed with nonepileptic co nvulsions and discharged here for follow-up. Since returning home the patient reports she has had a couple of seizure events. Most of these were occurring in the settings of working with trusted friends. The patient disclosed some information today which likely has contributed to her stress. Of note she does have an autistic son which has a number of medical i ssues. Her [id number]-[id number] recently which created stress on their fam mason. In addition her daughter decided to stay home from college due to these ch anges in their lives. Patient reports that she does have some trusted friends w hich she is able to seek in times of stress. She reports that her daughter is m anaging her medications due to her difficulty with her vision. Of note, one of her stressors is her spouse, which is why she preferred not to include him in ou r visit today. Patient reports that overall her headache symptoms are well controlled with a co mbination of Botox therapy, B2 200 mg daily, topiramate 100 mg twice a day and m agnesium 400 mg 3 times a day. For breakthrough pain she is able to use Ubrelvy . In addition she continues to participate in physical therapy for her balance iss ues which she states are gradually improving. She was able to walk today withou t any assistive devices. She does find that her balance is doing better. She d oes continue to have some low back pain. Her recent MRI did not reveal any disc herniations but rather some SI joint disease. In addition she reports some sydney ateral hip pain. She is waiting to be seen by orthopedics. Recall that the patient also takes gabapentin 900 mg at night for neuropathic pa in. She feels well otherwise and denies any other pertinent complaint. ROS: Per HPI, otherwise negative for constitutional / eyes / ENMT / cardiovascular / respiratory / GI / / musculoskeletal / skin / endocrine / psych / heme Prior Diagnostic Results: Lumbar Spine MRI personally reviewed: T12-L1: No disc herniation, spinal stenos is or foraminal narrowing. L1-L2: No disc herniation, spinal stenosis or foraminal narrowing. L2-L3: No d isc herniation, spinal stenosis or foraminal narrowing. L3-L4: No disc herniation, spinal stenosis or foraminal narrowing. L4-5: No di sc herniation, spinal stenosis or foraminal narrowing. L5-S1: No disc herniation, spinal stenosis or foraminal narrowing. Early degene rative changes in facet joint is present. OTHER: There are some degenerative changes in the SI joints. IMPRESSION: Largely unremarkable MR study of lumbar spine except early degenerat alexis changes. In particular there is no significant spinal canal or foraminal evette nosis or disc protrusion identified.There is no nerve root compression. MRI brain April 06, 2021 IMPRESSION: 1. No acute cerebral or cerebellar infarct. 2. Old cerebral infarct in the right occipital lobe. 3. Old lacunar infarct in the left thalamus. 4. No large vessel occlusion in the samish of [place]. 5. No occlusion in the major arteries of the neck. Bee venom, Fioricet [rvfumjuyau-srat-[id number]], and Adhesive tape Past Medical History: Diagnosis Date Acute ischemic right MCA stroke 01/14/2019 Asthma no meds Chronic kidney disease Diabetes mellitus type II Heartburn Hyperlipidemia Hypertension Stroke 03/2018 and 01/14/2019 Past Surgical History: Procedure Laterality Date SECTION times 3 CHOLECYSTECTOMY HERNIA REPAIR Speech issue Due to recent stroke 01/14/19 Social History Socioeconomic History Marital status: Spouse name: None Number of children: None Years of education: None Highest education level: None Occupational History None Tobacco Use Smoking status: Never Smoker Smokeless tobacco: Never Used Vaping Use Vaping Use: Never used Substance and Sexual Activity Alcohol use: No Drug use: No Sexual activity: Yes Partners: Male Other Topics Concern None 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 Social Determinants of Health Financial Resource Strain: Difficulty of Paying Living Expenses: Food Insecurity: Worried About Running Out of Food in the Last Year: Ran Out of Food in the Last Year: Transportation Needs: Lack of Transportation (Medical): Lack of Transportation (Non-Medical): Physical Activity: Days of Exercise per Week: Minutes of Exercise per Session: Stress: Feeling of Stress : Social Connections: Frequency of Communication with Friends and Family: Frequency of Social Gatherings with Friends and Family: Attends Gnosticism Services: Active Member of Clubs or Organizations: Attends Club or Organization Meetings: Marital Status: Intimate Partner Violence: Fear of Current or Ex-Partner: Emotionally Abused: Physically Abused: Sexually Abused: Family History Problem Relation Age of Onset Hypertension Father Diabetes Father Hypertension Mother COPD Mother Heart failure Mother Heart disease Mother Hypertension Paternal Aunt Diabetes Paternal Aunt Cancer Paternal Aunt pancreatic Heart disease Paternal Aunt stents Cancer Paternal Grandfather pancreatic CA No Known Problems Sister No Known Problems Brother Heart disease Maternal Uncle Heart disease Maternal Grandmother stents Heart disease Maternal Grandfather Heart disease Paternal Grandmother valve Stroke Paternal Grandmother 40s Medications: Outpatient Medications Marked as Taking for the 05/02/21 encounter (Office Visit) with Yakelin Mata MD Medication Sig Dispense Refill Extra Info Admelog SoloStar 100 UNIT/ML Subcutaneous Solution Pen-injector Inject 1 pen into the skin Three times daily before meals 8U breakfast, 10U at lunch, 10 at dinner 1 amLODIPine Besylate 2.5 MG Oral Tablet (NORVASC) Take 5 mg by mouth daily 1 aspirin 325 MG tablet Take 325 mg by mouth daily 1 atorvastatin (LIPITOR) 80 MG tablet Take 1 tablet by mouth every evening 30 tablet 11 1 B-2 100 MG Oral Tablet (RIBOFLAVIN) Take 2 tablets by mouth daily 180 tab let 3 1 Blood Glucose Monitoring Suppl (Dr. Scribbles VOICE BLOOD GLUCOSE) w/Device KIT Use as directed. To test blood glucose 4x daily. Dx:E11.65 1 kit 0 1 Cyclobenzaprine HCl 5 MG Oral Tablet (FLEXERIL) Take 5 mg by mouth Three times daily as needed for Muscle spasms 1 ezetimibe (ZETIA) 10 MG tablet Take 10 mg by mouth daily 1 folic acid (FOLVITE) 1 MG tablet [...] eyes Four times daily as needed 1 PRODIGY LANCETS 28G MISC Use as directed. [...] hours if needed. 10 tablet 11 1 Visit Vitals BP 128/79 Pulse 97 Ht 1.549 m (5' 1") Wt 111.6 kg (246 lb) LMP 03/15/2021 (Exact Date) BMI 46.48 kg/m Body mass index is 46.48 kg/m. Exam: Appears: Well-appearing, but affect is somewhat blunted MS: Awake, alert, oriented to name, date and location. Names, speaks fluently an d repeats. No neglect. Normal fund of knowledge. CN: PERRL. Patient has limited vision and visual harkins are limited to a small quadrant on right central area. EOMI. Sensation intact to LT b/l on face. Smile symmetric. Shoulder shrug equal. Hearing intact. Palate and tongue midline. Motor: Normal tone and bulk. Antigravity both arms >10s no drift. FFM equal b/l. Delts 5/5, Biceps 5/5, Triceps 5/5, Finger ext 5/5. Hip flexors 5/5, Knee flexors and extensors 5/5, dorsi and plantar flexors 5/5. Sens: Intact to LT b/l. Coordination: FTN intact. Reflexes: 3+ biceps, triceps, knee jerks, ankle jerks. 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 Today we discussed in depth the triggers for her nonepileptic convulsions which seem to be mainly secondary to family stressors. Patient reported confidential ly that she is struggling in their marriage and has not decided what she wants t o do about it. Today we discussed possible resources for her in her care such a s discussing this with her primary care, working with a counseling service for e ither marriage counseling or personal counseling. Patient reports that at this time she would prefer to keep it with close family and friends. She has however significantly opened up since this diagnosis became evident. She does feel lik e the events are becoming less frequent. For her low back discomfort seems to be more related to her SI joint disease. S o I have reordered her physical therapy such that she can focus her exercises on this. She also continues to use gabapentin 900 mg nightly for pain. For her chronic migraines we will continue with Botox therapy every 3 months, ma gnesium 400 mg 3 times a day, B2 200 mg daily and Ubrelvy as needed. I have scheduled a close follow-up with the patient in May. Yakelin Mata MD General Neurology/Neuromuscular Medicine documented in this encounter Plan of Treatment Care Team Description Date Type Specialty Yakelin Mata MD [address] [place] [address] [place] [phone] 05/09/2021 Procedure visit Infusion Therapy Yakelin Mata MD [address] [place] [phone] 06/20/2021 Office Visit Neurology Tamela Rey MD [address] [place] [address] [phone] 06/27/2021 Procedure visit Infusion Therapy Mali Del Rio MD [address] [place], [place] [id number] 03/07/2022 Office Visit Cardiology Health Maintenance Due [...] ot Implanted Type Area Manufactur er 12/14/2021 [id number] / [id number] / Recorder Loop Reveal [employer] - Loop N/A: Chest [employer] [id number] [employer]order [employer] Implanted: Qty: 1 on 09/25/2020 by Mali Del Rio MD at [facility] documented as of this encounter Results Not on filedocumented in this encounter Visit Diagnoses Diagnosis Chronic migraine - Primary Chronic migraine without aura, without mention of intractable migraine without mention of status migrainosus Sacroiliac joint disease Disorders of sacrum Functional neurological symptom disorde r with mixed symptoms Pseudoseizure Other convulsions documented in this encounter
--- OUTSIDE RECORDS SUMMARY | 2021-07-06 15:39 | CCD ---
Author Author [facility] Address Unknown Phone Unavailable Care Team Providers Care Cut Off Man Name Role Phone MD Heavenly CHAVEZ MD, MD Unavailable Unavailable MD Heavenly CHAVEZ MD, MD Unavailable Unavailable MD Heavenly CHAVEZ MD, MD Unavailable Unavailable MD Heavenly CHAVEZ MD, MD Unavailable Unavailable MD Heavenly CHAVEZ MD, MD Unavailable Unavailable MD Heavenly CHAVEZ MD, MD Unavailable Unavailable MD Heavenly CHAVEZ MD, MD Unavailable Unavailable MD Heavenly CHAVEZ MD, MD Unavailable Unavailable MD Heavenly CHAVEZ MD, MD Unavailable Unavailable MD Heavenly CHAVEZ MD, MD Unavailable Unavailable MD Heavenly CHAVEZ MD, MD Unavailable Unavailable MD Heavenly CHAVEZ MD, MD Unavailable Unavailable MD Heavenly CHAVEZ MD, MD Unavailable Unavailable MD Heavenly CHAVEZ MD, MD Unavailable Unavailable MD Heavenly CHAVEZ MD, MD Unavailable Unavailable KATHY JACOBS, MD Heavenly HAMLIN MD Unavailable Unavailable KATHY JACOBS, MD Heavenly HAMLIN MD Unavailable Unavailable Chabrashvili, Tinatin Unavailable Chabrashvili, Tinatin Unavailable Chabrashvili, Tinatin Unavailable Chabrashvili, Tinatin Unavailable Chabrashvili, Tinatin Unavailable Chabrashvili, Tinatin Unavailable Chabrashvili, Tinatin Unavailable Chabrashvili, Tinatin Unavailable Chabrashvili, Tinatin Unavailable Chabrashvili, Tinatin Unavailable Chabrashvili, Tinatin Unavailable Chabrashvili, Tinatin Unavailable Chabrashvili, Tinatin Unavailable Chabrashvili, Tinatin Unavailable Dora PIRES Unavailable Unavailable Zbigniew, Elliott Wendie DO Unavailable Unavailable Zbigniew, C Wendie DO Unavailable Unavailable Normantown, C Wendie DO Unavailable Unavailable [place], C Wendie DO Unavailable Unavailable Zbigniew, C Wendie DO Unavailable Unavailable Zbigniew, C Wendie DO Unavailable Unavailable Zbigniew, C Wendie DO Unavailable Unavailable Zbigniew, C Wendie DO Unavailable Unavailable [place], C Wendie DO Unavailable Unavailable Zbigniew, C Wendie DO Unavailable Unavailable Zbigniew, C Wendie DO Unavailable Unavailable Zbigniew, C Wendie DO Unavailable Unavailable Zbigniew, C Wendie DO Unavailable Unavailable Zbigniew, C Wendie DO Unavailable Unavailable [place], C Wendie DO Unavailable Unavailable [place], C Wendie DO Unavailable Unavailable [place], C Wendie DO Unavailable Unavailable Zbigniew, C Wendie DO Unavailable Unavailable Zbigniew, C Wendie DO Unavailable Unavailable [place], C Wendie DO Unavailable Unavailable [place], C Wendie DO Unavailable Unavailable [place], C Wendie DO Unavailable Unavailable Zbigniew, C Wendie DO Unavailable Unavailable Zbigniew, C Wendie DO Unavailable Unavailable [place], C Wendie DO Unavailable Unavailable Zbigniew, C Wendie DO Unavailable Unavailable [place], C Wendie DO Unavailable Unavailable Zbigniew, C Wendie DO Unavailable Unavailable Zbigniew, C Wendie DO Unavailable Unavailable [place], C Wendie DO Unavailable Unavailable Zbigniew, C Wendie DO Unavailable Unavailable [place], C Wendie DO Unavailable Unavailable Zbigniew, C Wendie DO Unavailable Unavailable [place], C Wendie DO Unavailable Unavailable [place], C Wendie DO Unavailable Unavailable Zbigniew, C Wendie DO Unavailable Unavailable TOMAS [id number], E BEBO [id number] Unavailable Unavailab le TOMAS [id number], E BEBO [id number] Unavailable Unavailab le TOMAS [id number], E BEOB [id number] Unavailable Unavailab le Skipton, E Frannie MD Unavailable Unavailable Skipton, E Frannie MD Unavailable Unavailable Skipton, E Frannie MD Unavailable Unavailable Skipton, E Frannie MD Unavailable Unavailable Skipton, E Frannie MD Unavailable Unavailable Skipton, E Frannie MD Unavailable Unavailable Skipton, E Frannie MD Unavailable Unavailable Skipton, E Frannie MD Unavailable Unavailable Skipton, E Frannie MD Unavailable Unavailable Skipton, E Frannie MD Unavailable Unavailable Skipton, E Frannie MD Unavailable Unavailable Skipton, E Frannie MD Unavailable Unavailable Skipton, E Frannie MD Unavailable Unavailable Skipton, E Frannie MD Unavailable Unavailable Skipton, E Frannie MD Unavailable Unavailable Skipton, E Frannie MD Unavailable Unavailable Skipton, E Frannie MD Unavailable Unavailable Skipton, E Frannie MD Unavailable Unavailable Skipton, E Frannie MD Unavailable Unavailable Skipton, E Frannie MD Unavailable Unavailable Skipton, E Frannie MD Unavailable Unavailable Skipton, E Frannie MD Unavailable Unavailable Skipton, E Frannie MD Unavailable Unavailable Skipton, E Frannie MD Unavailable Unavailable Skipton, E Frannie MD Unavailable Unavailable Skipton, E Frannie MD Unavailable Unavailable Skipton, E Frannie MD Unavailable Unavailable Skipton, E Frannie MD Unavailable Unavailable Skipton, E Frannie MD Unavailable Unavailable Skipton, E Frannie MD Unavailable Unavailable Skipton, E Frannie MD Unavailable Unavailable Skipton, E Frannie MD Unavailable Unavailable Skipton, E Frannie MD Unavailable Unavailable Skipton, E Frannie MD Unavailable Unavailable Skipton, E Frannie MD Unavailable Unavailable Skipton, E Frannie MD Unavailable Unavailable Skipton, E Frannie MD Unavailable Unavailable Skipton, E Frannie MD Unavailable Unavailable Skipton, E Frannie MD Unavailable Unavailable Skipton, E Frannie MD Unavailable Unavailable Skipton, E Frannie MD Unavailable Unavailable Skipton, E Frannie MD Unavailable Unavailable Skipton, E Frannie MD Unavailable Unavailable Skipton, E Frannie MD Unavailable Unavailable Skipton, E Frannie MD Unavailable Unavailable Skipton, E Frannie MD Unavailable Unavailable Skipton, E Frannie MD Unavailable Unavailable Skipton, E Frannie MD Unavailable Unavailable Skipton, E Frannie MD Unavailable Unavailable Skipton, E Frannie MD Unavailable Unavailable Skipton, E Frannie MD Unavailable Unavailable Skipton, E Frannie MD Unavailable Unavailable Skipton, E Frannie MD Unavailable Unavailable Skipton, E Frannie MD Unavailable Unavailable Skipton, E Frannie MD Unavailable Unavailable Skipton, E Frannie MD Unavailable Unavailable Skipton, E Frannie MD Unavailable Unavailable Skipton, E Frannie MD Unavailable Unavailable Skipton, E Frannie MD Unavailable Unavailable Skipton, E Frannie MD Unavailable Unavailable Christo SUBRAMANIAN MD Unavailable Unavailable Christo SUBRAMANIAN MD Unavailable Unavailable Capogreco, D Candido Unavailable Capogreco, D Candido Unavailable Capogreco, D Candido Unavailable Capogreco, D Candido Unavailable Capogreco, D Candido Unavailable Capogreco, D Candido Unavailable Capogreco, D Candido Unavailable ARCADIOBRACHASITYVICARSON, TINATIN Unavailable Unavailable Dora LOPEZ Unavailable Unavailable MCELHERAN, CAMILO PA Unavailable Unavailable MCELHERAN, CAMILO PA Unavailable Unavailable MCELHERAN, CAMILO PA Unavailable Unavailable MCELHERAN, CAMILO PA Unavailable Unavailable MCELHERAN, CAMILO PA Unavailable Unavailable MCELHERAN, CAMILO PA Unavailable Unavailable MCELHERAN, CAMILO PA Unavailable Unavailable MCELHERAN, CAMILO PA Unavailable Unavailable MCELHERAN, CAMILO PA Unavailable Unavailable MCELHERAN, CAMILO PA Unavailable Unavailable MCELHERAN, CAMILO PA Unavailable Unavailable MCELHERAN, CAMILO PA Unavailable Unavailable MCELHERAN, CAMILO PA Unavailable Unavailable MCELHERAN, CAMILO PA Unavailable Unavailable MCELHERAN, CAMILO PA Unavailable Unavailable MCELHERAN, CAMILO PA Unavailable Unavailable MCELHERAN, CAMILO PA Unavailable Unavailable MCELHERAN, CAMILO PA Unavailable Unavailable MCELHERAN, CAMILO PA Unavailable Unavailable MCELHERAN, CAMILO PA Unavailable Unavailable MCELHERAN, CAMILO PA Unavailable Unavailable MCELHERAN, CAMILO PA Unavailable Unavailable MCELHERAN, CAMILO PA Unavailable Unavailable MCELHERAN, CAMILO PA Unavailable Unavailable MCELHERAN, CAMILO PA Unavailable Unavailable MCELHERAN, CAMILO PA Unavailable Unavailable MCELHERAN, CAMILO PA Unavailable Unavailable MCELHERAN, CAMILO PA Unavailable Unavailable MCELHERAN, CAMILO PA Unavailable Unavailable RAQUEL, B RICO ASSISTANT DIRECTOR OF RESIDENCE LIFE Unavailable Unavailable RAQUEL, B RICO ASSISTANT DIRECTOR OF RESIDENCE LIFE Unavailable Unavailable RAQUEL, B RICO ASSISTANT DIRECTOR OF RESIDENCE LIFE Unavailable Unavailable RAQUEL, B RICO ASSISTANT DIRECTOR OF RESIDENCE LIFE Unavailable Unavailable RAQUEL, B RICO ASSISTANT DIRECTOR OF RESIDENCE LIFE Unavailable Unavailable RAQUEL, B RICO ASSISTANT DIRECTOR OF RESIDENCE LIFE Unavailable Unavailable RAQUEL, B RICO ASSISTANT DIRECTOR OF RESIDENCE LIFE Unavailable Unavailable RAQUEL, B RICO ASSISTANT DIRECTOR OF RESIDENCE LIFE Unavailable Unavailable RAQUEL, B RICO ASSISTANT DIRECTOR OF RESIDENCE LIFE Unavailable Unavailable RAQUEL, B RICO ASSISTANT DIRECTOR OF RESIDENCE LIFE Unavailable Unavailable RAQUEL, B RICO ASSISTANT DIRECTOR OF RESIDENCE LIFE Unavailable Unavailable RAQUEL, B RICO ASSISTANT DIRECTOR OF RESIDENCE LIFE Unavailable Unavailable RAQUEL, B RICO ASSISTANT DIRECTOR OF RESIDENCE LIFE Unavailable Unavailable RAQUEL, B RICO ASSISTANT DIRECTOR OF RESIDENCE LIFE Unavailable Unavailable RAQUEL, B RICO ASSISTANT DIRECTOR OF RESIDENCE LIFE Unavailable Unavailable RAQUEL, B RICO ASSISTANT DIRECTOR OF RESIDENCE LIFE Unavailable Unavailable RAQUEL, B RICO ASSISTANT DIRECTOR OF RESIDENCE LIFE Unavailable Unavailable RAQUEL, B RICO ASSISTANT DIRECTOR OF RESIDENCE LIFE Unavailable Unavailable RAQUEL, B RICO ASSISTANT DIRECTOR OF RESIDENCE LIFE Unavailable Unavailable RAQUEL, B RICO ASSISTANT DIRECTOR OF RESIDENCE LIFE Unavailable Unavailable RAQUEL, B RICO ASSISTANT DIRECTOR OF RESIDENCE LIFE Unavailable Unavailable RAQUEL, B RICO ASSISTANT DIRECTOR OF RESIDENCE LIFE Unavailable Unavailable RAQUEL, B RICO ASSISTANT DIRECTOR OF RESIDENCE LIFE Unavailable Unavailable RAQUEL, B RICO ASSISTANT DIRECTOR OF RESIDENCE LIFE Unavailable Unavailable RAQUEL, B RICO ASSISTANT DIRECTOR OF RESIDENCE LIFE Unavailable Unavailable RAQUEL, B RICO ASSISTANT DIRECTOR OF RESIDENCE LIFE Unavailable Unavailable RAQUEL, B RICO ASSISTANT DIRECTOR OF RESIDENCE LIFE Unavailable Unavailable RAQUEL, B RICO ASSISTANT DIRECTOR OF RESIDENCE LIFE Unavailable Unavailable RAQUEL, B RICO ASSISTANT DIRECTOR OF RESIDENCE LIFE Unavailable Unavailable RAQUEL, B RICO ASSISTANT DIRECTOR OF RESIDENCE LIFE Unavailable Unavailable RAQUEL, B RICO ASSISTANT DIRECTOR OF RESIDENCE LIFE Unavailable Unavailable RAQUEL, B RICO ASSISTANT DIRECTOR OF RESIDENCE LIFE Unavailable Unavailable RAQUEL, B RICO ASSISTANT DIRECTOR OF RESIDENCE LIFE Unavailable Unavailable RAQUEL, B RICO ASSISTANT DIRECTOR OF RESIDENCE LIFE Unavailable Unavailable RAQUEL, B RICO ASSISTANT DIRECTOR OF RESIDENCE LIFE Unavailable Unavailable RAQUEL, B RICO ASSISTANT DIRECTOR OF RESIDENCE LIFE Unavailable Unavailable RAQUEL, B RICO ASSISTANT DIRECTOR OF RESIDENCE LIFE Unavailable Unavailable RAQUEL, B RICO ASSISTANT DIRECTOR OF RESIDENCE LIFE Unavailable Unavailable RAQUEL, B RICO ASSISTANT DIRECTOR OF RESIDENCE LIFE Unavailable Unavailable RAQUEL, B RICO ASSISTANT DIRECTOR OF RESIDENCE LIFE Unavailable Unavailable RAQUEL, B RICO ASSISTANT DIRECTOR OF RESIDENCE LIFE Unavailable Unavailable RAQUEL, B RICO ASSISTANT DIRECTOR OF RESIDENCE LIFE Unavailable Unavailable RAQUEL, B RICO ASSISTANT DIRECTOR OF RESIDENCE LIFE Unavailable Unavailable RAQUEL, B RICO ASSISTANT DIRECTOR OF RESIDENCE LIFE Unavailable Unavailable RAQUEL, B RICO ASSISTANT DIRECTOR OF RESIDENCE LIFE Unavailable Unavailable RAQUEL, B RICO ASSISTANT DIRECTOR OF RESIDENCE LIFE Unavailable Unavailable RAQUEL, B RICO ASSISTANT DIRECTOR OF RESIDENCE LIFE Unavailable Unavailable RAQUEL, B RICO ASSISTANT DIRECTOR OF RESIDENCE LIFE Unavailable Unavailable RAQUEL, B RICO ASSISTANT DIRECTOR OF RESIDENCE LIFE Unavailable Unavailable RAQUEL, B RICO ASSISTANT DIRECTOR OF RESIDENCE LIFE Unavailable Unavailable RAQUEL, B RICO ASSISTANT DIRECTOR OF RESIDENCE LIFE Unavailable Unavailable RAQUEL, B RICO ASSISTANT DIRECTOR OF RESIDENCE LIFE Unavailable Unavailable RAQUEL, B RICO ASSISTANT DIRECTOR OF RESIDENCE LIFE Unavailable Unavailable RAQUEL, B RICO ASSISTANT DIRECTOR OF RESIDENCE LIFE Unavailable Unavailable RAQUEL, B RICO ASSISTANT DIRECTOR OF RESIDENCE LIFE Unavailable Unavailable RAQUEL, B RICO ASSISTANT DIRECTOR OF RESIDENCE LIFE Unavailable Unavailable RAQUEL, B RICO ASSISTANT DIRECTOR OF RESIDENCE LIFE Unavailable Unavailable ARQUEL, B RICO ASSISTANT DIRECTOR OF RESIDENCE LIFE Unavailable Unavailable RAQUEL, B RICO ASSISTANT DIRECTOR OF RESIDENCE LIFE Unavailable Unavailable RAQUEL, B RICO ASSISTANT DIRECTOR OF RESIDENCE LIFE Unavailable Unavailable RAQUEL, B RICO ASSISTANT DIRECTOR OF RESIDENCE LIFE Unavailable Unavailable RAQUEL, B RICO ASSISTANT DIRECTOR OF RESIDENCE LIFE Unavailable Unavailable JORDI, L SEN Unavailable Unavailable Elliott COOK MD Unavailable Unavailable Elliott COOK MD Unavailable Unavailable Elliott COOK MD Unavailable Unavailable Elliott COOK MD Unavailable Unavailable Elliott COOK MD Unavailable Unavailable Elliott COOK MD Unavailable Unavailable Elliott COOK MD Unavailable Unavailable Elliott COOK MD Unavailable Unavailable Elliott COOK MD Unavailable Unavailable Elliott COOK MD Unavailable Unavailable Elliott COOK MD Unavailable Unavailable Elliott COOK MD Unavailable Unavailable Elliott COOK MD Unavailable Unavailable Elliott COOK MD Unavailable Unavailable Elliott COOK MD Unavailable Unavailable Elliott COOK MD Unavailable Unavailable Elliott COOK MD Unavailable Unavailable Elliott COOK MD Unavailable Unavailable Elliott COOK MD Unavailable Unavailable Elliott COOK MD Unavailable Unavailable Elliott COOK MD Unavailable Unavailable Elliott COOK MD Unavailable Unavailable COOK, C STACIE MD Unavailable Unavailable COOK, C STACIE MD Unavailable Unavailable COOK, C STACIE MD Unavailable Unavailable COOK, C STACIE MD Unavailable Unavailable COOK, C STACIE MD Unavailable Unavailable COOK, C STACIE MD Unavailable Unavailable COOK, C STACIE MD Unavailable Unavailable COOK, C STACIE MD Unavailable Unavailable COOK, C STACIE MD Unavailable Unavailable COOK, C STACIE MD Unavailable Unavailable COOK, C STACIE MD Unavailable Unavailable COOK, C STACIE MD Unavailable Unavailable COOK, C STACIE MD Unavailable Unavailable COOK, C STACIE MD Unavailable Unavailable COOK, C STACIE MD Unavailable Unavailable COOK, C STACIE MD Unavailable Unavailable COOK, C STACIE MD Unavailable Unavailable COOK, C STACIE MD Unavailable Unavailable COOK, C STACIE MD Unavailable Unavailable COOK, C STACIE MD Unavailable Unavailable COOK, C STACIE MD Unavailable Unavailable COOK, C STACIE MD Unavailable Unavailable COOK, C STACIE MD Unavailable Unavailable COOK, C STACIE MD Unavailable Unavailable COOK, C STACIE MD Unavailable Unavailable COOK, C STACIE MD Unavailable Unavailable COOK, C STACIE MD Unavailable Unavailable COOK, C STACIE MD Unavailable Unavailable COOK, C STACIE MD Unavailable Unavailable COOK, C STACIE MD Unavailable Unavailable COOK, C STACIE MD Unavailable Unavailable COOK, C STACIE MD Unavailable Unavailable COOK, C STACIE MD Unavailable Unavailable COOK, C STACIE MD Unavailable Unavailable COOK, C STACIE MD Unavailable Unavailable COOK, C STACIE MD Unavailable Unavailable COOK, C STACIE MD Unavailable Unavailable COOK, C STACIE MD Unavailable Unavailable COOK, C STACIE MD Unavailable Unavailable COOK, C STACIE MD Unavailable Unavailable COOK, C STACIE MD Unavailable Unavailable COOK, C STACIE MD Unavailable Unavailable Eckhard, N JORGE FOOD SERVICE TECHNICIAN Unavailable Unavailable Eckhard, N JORGE FOOD SERVICE TECHNICIAN Unavailable Unavailable Eckhard, N JORGE FOOD SERVICE TECHNICIAN Unavailable Unavailable Eckhard, N JORGE FOOD SERVICE TECHNICIAN Unavailable Unavailable Eckhard, N JORGE FOOD SERVICE TECHNICIAN Unavailable Unavailable Eckhard, N JORGE FOOD SERVICE TECHNICIAN Unavailable Unavailable Eckhard, N JORGE FOOD SERVICE TECHNICIAN Unavailable Unavailable Eckhard, N JORGE FOOD SERVICE TECHNICIAN Unavailable Unavailable Eckhard, N JORGE FOOD SERVICE TECHNICIAN Unavailable Unavailable Eckhard, N JORGE FOOD SERVICE TECHNICIAN Unavailable Unavailable Eckhard, N JORGE FOOD SERVICE TECHNICIAN Unavailable Unavailable Eckhard, N JORGE FOOD SERVICE TECHNICIAN Unavailable Unavailable Eckhard, N JORGE FOOD SERVICE TECHNICIAN Unavailable Unavailable Eckhard, N JORGE FOOD SERVICE TECHNICIAN Unavailable Unavailable Eckhard, N JORGE FOOD SERVICE TECHNICIAN Unavailable Unavailable Eckhard, N JORGE FOOD SERVICE TECHNICIAN Unavailable Unavailable Eckhard, N JORGE FOOD SERVICE TECHNICIAN Unavailable Unavailable Eckhard, N JORGE FOOD SERVICE TECHNICIAN Unavailable Unavailable Eckhard, N JORGE FOOD SERVICE TECHNICIAN Unavailable Unavailable Eckhard, N JORGE FOOD SERVICE TECHNICIAN Unavailable Unavailable Eckhard, N JORGE FOOD SERVICE TECHNICIAN Unavailable Unavailable Eckhard, N JORGE FOOD SERVICE TECHNICIAN Unavailable Unavailable Eckhard, N JORGE FOOD SERVICE TECHNICIAN Unavailable Unavailable Eckhard, N JORGE FOOD SERVICE TECHNICIAN Unavailable Unavailable Eckhard, N JORGE FOOD SERVICE TECHNICIAN Unavailable Unavailable LOMBARDI, JUAN MBBS Unavailable Unavailable LOMBARDI, JUAN MBBS Unavailable Unavailable LOMBARDI, JUAN MBBS Unavailable Unavailable LOMBARDI, JUAN MBBS Unavailable Unavailable LOMBARDI, JUAN MBBS Unavailable Unavailable LOMBARDI, JUAN MBBS Unavailable Unavailable LOMBARDI, JUAN MBBS Unavailable Unavailable LOMBARDI, JUAN MBBS Unavailable Unavailable LOMBARDI, JAUN MBBS Unavailable Unavailable LOMBARDI, JUAN MBBS Unavailable Unavailable LOMBARDI, JUAN MBBS Unavailable Unavailable LOMBARDI, JUAN MBBS Unavailable Unavailable LOMBARDI, JUAN MBBS Unavailable Unavailable LOMBARDI, JUAN MBBS Unavailable Unavailable LOMBARDI, JUAN MBBS Unavailable Unavailable LOMBARDI, JUAN MBBS Unavailable Unavailable LOMBARDI, JUAN MBBS Unavailable Unavailable LOMBARDI, JUAN MBBS Unavailable Unavailable LOMBARDI, JUAN MBBS Unavailable Unavailable LOMBARDI, JUAN MBBS Unavailable Unavailable LOMBARDI, JUAN MBBS Unavailable Unavailable LOMBARDI, JUAN MBBS Unavailable Unavailable LOMBARDI, JUAN MBBS Unavailable Unavailable LOMBARDI, JUAN MBBS Unavailable Unavailable LOMBARDI, JUAN MBBS Unavailable Unavailable LOMBARDI, JUAN MBBS Unavailable Unavailable LOMBARDI, JUAN MBBS Unavailable Unavailable LOMBARDI, JUAN MBBS Unavailable Unavailable LOMBARDI, JUAN MBBS Unavailable Unavailable LOMBARDI, JUAN MBBS Unavailable Unavailable LOMBARDI, JUAN MBBS Unavailable Unavailable LOMBARDI, JUAN MBBS Unavailable Unavailable LOMBARDI, JUAN MBBS Unavailable Unavailable LOMBARDI, JUAN MBBS Unavailable Unavailable LOMBARDI, JUAN MBBS Unavailable Unavailable LOMBARDI, JUAN MBBS Unavailable Unavailable LOMBARDI, JUAN MBBS Unavailable Unavailable LOMBARDI, JUAN MBBS Unavailable Unavailable ED, TEST DEFAULT Unavailable Unavailable [place] WATERMAN . Unavailable Unavailable ADRIENNE SYLVESTER MD Unavailable Unavailable ADRIENNE SYLVESTER MD Unavailable Unavailable ADRIENNE SYLVESTER MD Unavailable Unavailable ADRIENNE SYLVESTER MD Unavailable Unavailable ADRIENNE SYLVESTER MD Unavailable Unavailable ADRIENNE SYLVESTER MD Unavailable Unavailable ADRIENNE SYLVESTER MD Unavailable Unavailable ADRIENNE SYLVESTER MD Unavailable Unavailable ADRIENNE SYLVESTER MD Unavailable Unavailable ADRIENNE SYLVESTER MD Unavailable Unavailable ADRIENNE SYLVESTER MD Unavailable Unavailable ADRIENNE SYLVESTER MD Unavailable Unavailable ADRIENNE SYLVESTER MD Unavailable Unavailable ADRIENNE SYLVESTER MD Unavailable Unavailable ADRIENNE SYLVESTER MD Unavailable Unavailable ADRIENNE SYLVESTER MD Unavailable Unavailable ADRIENNE SYLVESETR MD Unavailable Unavailable ADRIENNE SYLVESTER MD Unavailable Unavailable ADRIENNE SYLVESTER MD Unavailable Unavailable ADRIENNE SYLVESTER MD Unavailable Unavailable ADRIENNE SYLVESTER MD Unavailable Unavailable ADRIENNE SYLVESTER MD Unavailable Unavailable ADRIENNE SYLVESTER MD Unavailable Unavailable ADRIENNE SYLVESTER MD Unavailable Unavailable ADRIENNE SYLVESTER MD Unavailable Unavailable ADRIENNE SYLVESTER MD Unavailable Unavailable ADRIENNE SYLVESTER MD Unavailable Unavailable ADRIENNE SYLVESTER MD Unavailable Unavailable ADRIENNE SYLVESTER MD Unavailable Unavailable ADRIENNE SYLVESTER MD Unavailable Unavailable MD Silvano Fish Unavailable MD Polina Silvano Unavailable MD Polina Silvano Unavailable MD Polina Silvano Unavailable MD Polina Silvano Unavailable MD Polina Silvano Unavailable MD Polina Silvano Unavailable Dora CRANE Unavailable Unavailable SWIECKI, INGRO VINITA ASSISTANT DIRECTOR OF RESIDENCE LIFE Unavailable Unavailable SWIECKI, INGRO VINITA ASSISTANT DIRECTOR OF RESIDENCE LIFE Unavailable Unavailable SWIECKI, INGRO VINITA ASSISTANT DIRECTOR OF RESIDENCE LIFE Unavailable Unavailable SWIECKI, INGRO VINITA ASSISTANT DIRECTOR OF RESIDENCE LIFE Unavailable Unavailable SWIECKI, INGRO VINITA ASSISTANT DIRECTOR OF RESIDENCE LIFE Unavailable Unavailable SWIECKI, INGRO VINITA ASSISTANT DIRECTOR OF RESIDENCE LIFE Unavailable Unavailable SWIECKI, INGRO VINITA ASSISTANT DIRECTOR OF RESIDENCE LIFE Unavailable Unavailable SWIECKI, INGRO VINITA ASSISTANT DIRECTOR OF RESIDENCE LIFE Unavailable Unavailable SWIECKI, INGRO VINITA ASSISTANT DIRECTOR OF RESIDENCE LIFE Unavailable Unavailable SWIECKI, INGRO VINITA ASSISTANT DIRECTOR OF RESIDENCE LIFE Unavailable Unavailable SWIECKI, INGRO VINITA ASSISTANT DIRECTOR OF RESIDENCE LIFE Unavailable Unavailable SWIECKI, INGRO VINITA ASSISTANT DIRECTOR OF RESIDENCE LIFE Unavailable Unavailable SWIECKI, INGRO VINITA ASSISTANT DIRECTOR OF RESIDENCE LIFE Unavailable Unavailable SWIECKI, INGRO VINITA ASSISTANT DIRECTOR OF RESIDENCE LIFE Unavailable Unavailable LANDON, R TIMUR Unavailable Unavailable Swarnkar, Reji Unavailable Unavailable Swarnkar, Reji Unavailable Unavailable Swarnkar, Reji Unavailable Unavailable Swarnkar, Reji Unavailable Unavailable Swarnkar, Reji Unavailable Unavailable POLINASILVANO Unavailable Unavailable Derick, Heavenly Hamlin MD Unavailable Unavailable Derick, A Yakelin JACOBS Unavailable Unavailable Derick, A Yakelin MD Unavailable Unavailable Derick, A Yakelin MD Unavailable Unavailable Derick, A Yakelin MD Unavailable Unavailable Derick, A Yakelin MD Unavailable Unavailable Derick, A Yakelin MD Unavailable Unavailable Derick, A Yakelin MD Unavailable Unavailable Derick, A Yakelin MD Unavailable Unavailable Derick, A Yakelin MD Unavailable Unavailable Derick, A Yakelin MD Unavailable Unavailable Derick, A Yakelin MD Unavailable Unavailable Derick, A Yakelin MD Unavailable Unavailable Derick, A Yakelin MD Unavailable Unavailable Derick, A Yakelin MD Unavailable Unavailable Derick, A Yakelin MD Unavailable Unavailable Derick, A Yakelin MD Unavailable Unavailable Derick, A Yakelin MD Unavailable Unavailable Derick, A Yakelin MD Unavailable Unavailable Derick, A Yakelin MD Unavailable Unavailable Derick, A Yakelin MD Unavailable Unavailable Derick, A Yakelin MD Unavailable Unavailable Derick, A Yakelin MD Unavailable Unavailable Derick, A Yakelin MD Unavailable Unavailable Derick, A Yakelin MD Unavailable Unavailable Derick, A Yakelin MD Unavailable Unavailable Derick, A Yakelin MD Unavailable Unavailable Derick, A Yakelin MD Unavailable Unavailable Derick, A Yakelin MD Unavailable Unavailable Derick, A Yakelin MD Unavailable Unavailable Derick, A Yakelin MD Unavailable Unavailable Derick, A Yakelin MD Unavailable Unavailable Derick, A Yakelin MD Unavailable Unavailable Derick, A Yakelin MD Unavailable Unavailable Derick, A Yakelin MD Unavailable Unavailable Derick, A Yakelin MD Unavailable Unavailable Derick, A Yakelin MD Unavailable Unavailable Derick, A Yakelin MD Unavailable Unavailable Derick, A Yakelin MD Unavailable Unavailable Derick, A Yakelin MD Unavailable Unavailable Tamela Rey MD Unavailable Unavailable Tamela Rey MD Unavailable Unavailable Tamela Rey MD Unavailable Unavailable Candido Rosamma MD Unavailable Unavailable Candido Rosamma MD Unavailable Unavailable Candido Rosamma MD Unavailable Unavailable Candido Rosamma MD Unavailable Unavailable Candido Rosamma MD Unavailable Unavailable Candido Rosamma MD Unavailable Unavailable Tamela Rey MD Unavailable Unavailable Tamela Rey MD Unavailable Unavailable Tamela Rey MD Unavailable Unavailable Tamela Rey MD Unavailable Unavailable Tamela Rey MD Unavailable Unavailable Tamela Rey MD Unavailable Unavailable Tamela Rey MD Unavailable Unavailable Tamela Rey MD Unavailable Unavailable Tamela Rey MD Unavailable Unavailable Tamela Rey MD Unavailable Unavailable FishShira MD Unavailable Unavailable Fish, Shira Guillory MD Unavailable Unavailable FishShira MD Unavailable Unavailable Fish, Shira Guillory MD Unavailable Unavailable Fish, Shira Guillory MD Unavailable Unavailable Fish, Shira Guillory MD Unavailable Unavailable Fish, Shira Guillory MD Unavailable Unavailable FishShira MD Unavailable Unavailable Fish, Shira Guillory MD Unavailable Unavailable Fish, Shira Guillory MD Unavailable Unavailable Fish, Shira Guillory MD Unavailable Unavailable Fish, Shira Guillory MD Unavailable Unavailable Fish, Shira Guillory MD Unavailable Unavailable Fish, Shira Guillory MD Unavailable Unavailable Fish, Shira Guillory MD Unavailable Unavailable FishShira MD Unavailable Unavailable Fish, Shira Guillory MD Unavailable Unavailable FishShira MD Unavailable Unavailable Fish, Shira Guillory MD Unavailable Unavailable Fish, Shira Guillory MD Unavailable Unavailable Fish, Shira Guillory MD Unavailable Unavailable FishShira MD Unavailable Unavailable FishShira MD Unavailable Unavailable FishShira MD Unavailable Unavailable FishShira MD Unavailable Unavailable FishShira MD Unavailable Unavailable FishShira MD Unavailable Unavailable FishShira MD Unavailable Unavailable FishShira MD Unavailable Unavailable FishShira MD Unavailable Unavailable FishShira MD Unavailable Unavailable FishShira MD Unavailable Unavailable FishShira MD Unavailable Unavailable FishShira MD Unavailable Unavailable FishShira MD Unavailable Unavailable FishShira MD Unavailable Unavailable FishShira MD Unavailable Unavailable FishShira MD Unavailable Unavailable FishShira MD Unavailable Unavailable FishShira MD Unavailable Unavailable FishShira MD Unavailable Unavailable FishShira MD Unavailable Unavailable FishShira MD Unavailable Unavailable FishShira MD Unavailable Unavailable FishShira MD Unavailable Unavailable FishShira MD Unavailable Unavailable FishShira MD Unavailable Unavailable FishShira MD Unavailable Unavailable FishShira MD Unavailable Unavailable FishShira MD Unavailable Unavailable FishShira MD Unavailable Unavailable Fish, Shira Guillory MD Unavailable Unavailable Fish, B Pastora MD Unavailable Unavailable Fish, B Pastora MD Unavailable Unavailable Fish, B Pastora MD Unavailable Unavailable Fish, B Pastora MD Unavailable Unavailable Fish, B Pastora MD Unavailable Unavailable Fish, B Pastora MD Unavailable Unavailable Fish, B Pastora MD Unavailable Unavailable Fish, B Pastora MD Unavailable Unavailable Fish, B Pastora MD Unavailable Unavailable Fish, B Pastora MD Unavailable Unavailable Fish, B Pastora MD Unavailable Unavailable Fish, B Pastora MD Unavailable Unavailable Fish, B Pastora MD Unavailable Unavailable Otite, Jacob Fadar Unavailable Unavailable Otite, Jacob Fadar Unavailable Unavailable Otite, Jacob Fadar Unavailable Unavailable Re-disclosure Warning The records that you are about to access may contain information from federally-assisted alcohol or drug abuse programs. If such information is present, then the following federally mandated warning applies: This information has been disclosed to you from records protected by federal confidentiality rules (42 CFR part 2). The federal rules prohibit you from making any further disclosure of this information unless further disclosure is expressly permitted by the written consent of the person to whom it pertains or as otherwise permitted by 42 CFR part 2. A general authorization for the release of medical or other information is NOT sufficient for this purpose. The Federal rules restrict any use of the information to criminally investigate or prosecute any alcohol or drug abuse patient.The records that you are about to access may contain highly sensitive health information, the redisclosure of which is protected by Article 27-F of the [facility] Public Health law. If you continue you may have access to information: Regarding HIV / AIDS; Provided by facilities licensed or operated by the [facility] Office of Mental Health; or Provided by the [facility] Office for People With Developmental Disabilities. If such information is present, then the following [facility] mandated warning applies: This information has been disclosed to you from confidential records which are protected by state law. State law prohibits you from making any further disclosure of this information without the specific written consent of the person to whom it pertains, or as otherwise permitted by law. Any unauthorized further disclosure in violation of state law may result in a fine or fci sentence or both. A general authorization for the release of medical or other information is NOT sufficient authorization for further disc losure. Allergies and Adverse Reactions Type Description Substance Reaction Status Data Source(s ) Propensity to adverse reactions BEE VENOM BEE VENOM Anaphylaxis [facility] Propensity to adverse reactions ADHESIVE TAPE ADHESIVE TAPE Rash [facility] Propensity to adverse [facility] Family Member Name Family Member Gender Family Member Status Date o f Status Description Data Source(s) Unknown Unknown Problem [facility] ([facility] ) Unknown Unknown Problem [facility] ([facility] ) Unknown Unknown Problem [facility] ([facility] ) Encounters Encounter Providers Location Date Indications Data Source(s ) Outpatient Attender: VINITA BENTON NP 03/07/2022 12:00:0 0 AM [facility] Outpatient Attender: JUAN CHANG 03/07/2022 12:00:00 AM [facility] Outpatient Attender: Yakelin Sepulveda MDAttender: MD YAKELIN CHAVEZ MD 10/30/2021 12:00:00 AM [facility] Outpatient Attender: Yakelin Sepulveda MDAttender: MD YAKELIN CHAVEZ MD 10/17/2021 12:00:00 AM [facility] Outpatient Attender: Tamela Rey MD 09/26/2021 12:00:00 AM [facility] Outpatient Attender: Yakelin Sepulveda MDAttender: MD YAKELIN CHAVEZ MD 08/08/2021 12:00:00 AM [facility] Outpatient Attender: MD Silvano Schreiber tender: SILVANO FISHReferrer: SILVANO FISH 07/04/2021 12:00:00 AM EDT [facility] Outpatient Attender: MD YAKELIN CHAVEZ MD 07/04/2021 12:00:00 AM [facility] Outpatient Attender: Tamela YANGeferrer: MD YAKELIN WALKER MD [id number] 06/27/2021 12:00:00 AM EDT - 06/27/2021 01:04:05 PM EDT Other disorders of trigeminal nerve [facility] Other disorders of trigeminal nerve Outpatient Attender: SHAWNA CRANE [id number] 06/24/2021 09:29:52 AM [facility] Outpatient Attender: DEFAULT EDAttender : TIMUR NAVARRETEReferrer: Tamela Rey MD [id number] 06/24/2021 12:00:00 AM EDT [facility] Outpatient Attender: MD YAKELIN CHAVEZ MDA ttender: Yakelin Sepulveda MDReferrer: Frannie Varghese MD [id number] 06/20/2021 12:00:00 AM EDT - 06/20/2021 01:13:21 PM [facility] [place] [address] [address] 06/18/2021 12:00:00 AM EDT eCW1 ([facility]) Outpatient [address] [facility] [place] [address] 06/18/2021 12:00:00 AM EDT eCW1 ([facility]) Unknown [address] [facility] [facility] [place] [address] 06/18/2021 12:00:00 AM EDT eCW1 ([facility]) [place] [address] [facility] [place] [address] 06/13/2021 12:00:00 AM EDT [facility] Outpatient Attender: Pastora Navarro MD Physical Therapy 06/10 03:30:00 PM EDT [facility] ([facility]) Outpatient Attender: MD Silvano Schreiber tender: SILVANO FISHReferrer: SILVANO FISH 06/03/2021 12:00:00 AM EDT [facility] [place] [address] [address] 06/03/2021 12:00:00 AM EDT eCW1 ([facility]) [place] [address] [address] 06/03/2021 12:00:00 AM EDT eCW1 ([facility]) Outpatient Attender: SHAWNA CRANE [id number] 05/13/2021 09:12:44 AM [facility] Outpatient Attender: LU LOPEZ [id number] 05/09/2021 02:13:16 PM [facility] Outpatient Attender: CAMILO PETERS Physical Therapy 05/09/2021 09:15:00 AM EDT [facility] ([facility]) Outpatient Attender: Yakelin Lovell belle: MD YAKELIN CHAVEZ MDReferrer: MD YAKELIN CHAVEZ MD [id number] 05/09/2021 12:00:00 AM EDT [facility] Outpatient Attender: JUAN CHANGReferrer: JUAN CHANG 05/03/2021 12:00:00 AM EDT [facility] Outpatient Attender: Yakelin Lovell belle: MD YAKELIN CHAVEZ MDReferrer: Frannie Varghese MD [id number] 05/02/2021 12:00:00 AM EDT - 05/02/2021 01:15:13 PM EDT [facility] [place] [address] [address] 04/10/2021 12:00:[address] [facility] ([facility]) Inpatient Attender: Reji Mojica nder: Haris GarzaviliAttender: HARIS DAVIDSONAttender: Candido LambertoAttender: CANDIDO WATERMAN .Admitter: TINATIN CHABRASHVILIReferrer: HARIS ERVINBRASHVILIConsultant: Wendie Coy DO -04/06/2021 12:00:00 AM EDT - 04/09/2021 05:21:00 PM EDT bilateral weak legs [facility] bilateral weak legs Patient discharged. Outpatient Attender: JUAN CHANGReferrer: JUAN CHANG [facility]: Tamela Rey MDReferrer: MD YAKELIN WALKER MD [id number] 03/28/2021 12:00:00 AM EDT - 03/28/2021 01:11:34 PM T [facility] OFFICE OUTPATIENT VISIT 15 MINUTES Attender: CAMILO PETERS Physical Therapy 03/20/2021 09:15:00 AM EDT [facility] ([facility]) [place] [address] [address] 03/18/2021 12:00:00 AM EDT eCW1 ([facility]) Outpatient Attender: Yakelin Lovell belle: MD YAKELIN CHAVEZ MDReferrer: MD YAKELIN CHAVEZ MD 03/14/2021 12:00:00 AM EDT Repeated falls [facility] Repeated falls [place] [address] [address] 03/07/2021 12:00:00 AM EDT eCW1 ([facility]) Outpatient Attender: JUAN CHANGReferrer: JUAN CHANG 03/02/2021 12:00:00 AM [facility] Outpatient Attender: MD YAKELIN CHAVEZ MD 02/28/2021 12:00:00 AM [facility] Outpatient Attender: Yakelin Lovell belle: MD YAKELIN CHAVEZ MDReferrer: MD YAKELIN CHAVEZ MD [id number] 02/14/2021 12:00:00 AM EDT - 02/14/2021 01:41:47 PM [facility] Outpatient Attender: MD YAKELIN CHAVEZ MDReferrer: MD YAKELIN WALKER MD 02/13/2021 12:00:00 AM [facility] Outpatient Attender: MD YAKELIN CHAVEZ MD 02/07/2021 12:00:00 AM [facility] Outpatient Attender: MD YAKELIN CHAVEZ MD 02/07/2021 12:00:00 AM [facility] Outpatient Attender: JUAN CHANG [id number] 05/2021 12:00:00 AM EDT - 02/06/2021 10:00:23 AM EDT Cerebral infarction, unspecified [facility] Cerebral infarction, unspecified OFFICE OUTPATIENT VISIT 15 MINUTES Attender: CAMILO PETERS Physical Therapy 02/04/2021 09:15:00 AM EDT [facility] ([facility]) Outpatient Attender: Yakelin Lovell belle: MD YAKELIN CHAVEZ MDReferrer: Frannie Varghese MD [id number] 01/31/2021 12:00:00 AM EDT - 01/31/2021 12:50:10 PM EDT Chronic migraine without aura, not intractable, without status migrainosus [facility] Chronic migraine without aura, not intra ctable, without status migrainosus Outpatient Attender: MD YAKELIN CHAVEZ MD 01/31/2021 12:00:00 AM [facility] Outpatient Attender: JUAN CHANGReferrer: JUAN CHANG 01/30/2021 12:00:00 AM [facility] Outpatient Attender: MD YAKELIN CHAVEZ MD 01/16/2021 12:00:00 AM [facility] Outpatient Attender: RICO GARCÍA NP Physical Therapy 02:30:00 PM EDT [facility] ([facility]) Outpatient Attender: JUAN CHANGReferrer: JUAN CHANG 12/30/2020 12:00:00 AM [facility] Outpatient Attender: Tamela YANGeferrer: MD YAKELIN WALKER MD [id number] 12/27/2020 12:00:00 AM EDT - 12/27/2020 01:04:21 PM EDT Occipital neuralgia [facility] Occipital neuralgia OFFICE OUTPATIENT VISIT 15 MINUTES Attender: CAMILO PETERS Physical Therapy 12/24/2020 04:00:00 PM EDT [facility] ([facility]) Outpatient [address] [facility] [address] 12/18/2020 12:00:00 AM EDT eCW1 ([facility]) Unknown [address] [facility] [address] 12/18/2020 12:00:00 AM EDT eCW1 ([facility]) Unknown [address] [facility] [address] 12/18/2020 12:00:00 AM EDT eCW1 ([facility]) Unknown [address] [facility] [place] [address] 12/11/2020 12:00:00 AM EDT eCW1 ([facility]) Outpatient Attender: JUAN CHANGReferrer: JUAN CHANG 11/29/2020 12:00:00 AM [facility] Outpatient Attender: JUAN CHANGReferrer: JUAN CHANG 11/28/2020 12:00:00 AM EDT [facility] [place] [address] [address] 11/28/2020 12:00:00 AM EDT eCW1 ([facility]) [place] [address] [address] 11/22/2020 12:00:00 AM EDT eCW1 ([facility]) [place] [address] [address] 11/19/2020 12:00:00 AM EDT eCW1 ([facility]) Unknown [address] [address] 11/19/2020 12:00:00 AM EDT eCW1 ([facility]) Unknown [address] [address] 11/13/2020 12:00:00 AM EDT eCW1 ([facility]) Outpatient Attender: MD YAKELIN CHAVEZ MDReferrer: MD YAKELIN WALKER MD [id number] 11/08/2020 12:00:00 AM EST - 11/08/2020 01:34:44 PM EST Chronic migraine without aura, not intractable, without status migrainosus [facility] Chronic migraine without aura, not intra ctable, without status migrainosus Outpatient Attender: JUAN CHANGReferrer: JUAN CHANG 10/29/2020 12:00:00 AM EST [facility] [place] [address] [address] 10/29/2020 12:00:00 AM EST eCW1 ([facility]) Unknown [address] [address] 10/26/2020 12:00:00 AM EST eCW1 ([facility]) OFFICE OUTPATIENT VISIT 15 MINUTES Attender: CAMILO PETERS Physical Therapy 10/24/2020 12:00:00 PM EST [facility] ([facility]) Outpatient Attender: MD YAKELIN CHAVEZ MD 10/23/2020 12:00:00 AM EST [facility] Outpatient Attender: MD YAKELIN CHAVEZ MD [id number] 11/2020 12:00:00 AM EST - 10/04/2020 09:16:06 AM EST Repeated falls [facility] Repeated falls Outpatient Attender: MD YAKELIN CHAVEZ MDReferrer: MD YAKELIN WALKER MD 10/01/2020 12:00:00 AM EST Other abnormalities of gait and mobility [facility] Other abnormalities of gait and mobility Outpatient Attender: JUAN CHANGAdmitter: JUAN CHANG [id number] 09/25/2020 12:00:00 AM EST - 09/25/2020 10:53:00 AM EST Cryptogenic stroke [I63.9] [facility] Cryptogenic stroke [I63.9] Patient discharged. Outpatient Attender: SEN BACONReferrer: JUAN LONG S [id number] 09/22/2020 12:00:00 AM EST - 09/23/2020 12:00:00 AM EST [facility] Outpatient Attender: CAMILO PETERS Physical Therapy 09/14/2020 12:15:00 PM EST [facility] ([facility]) Outpatient Attender: JORGE REDMONDPReferrer: Shira BOSCH [id number] 09/07/2020 12:00:00 AM EST [facility] Outpatient Attender: MD YAKELIN CHAVEZ MD [id number] 01/2021 12:00:00 AM EST - 09/05/2020 09:24:12 AM EST Migraine without aura, intractable, with out status migrainosus [facility] Migraine without aura, intractable, with out status migrainosus Outpatient Attender: RICO GARCÍA NP Physical Therapy 09:45:00 AM EST [facility] ([facility]) Outpatient Attender: Tamela Rey MDReferrer: MD YAKELIN WALKER MD [id number] 08/16/2020 12:00:00 AM EST - 08/16/2020 12:23:34 PM EST Occipital neuralgia [facility] Occipital neuralgia OFFICE OUTPATIENT VISIT 15 MINUTES Attender: CAMILO PETERS Physical Therapy 08/06/2020 12:15:00 PM EST [facility] ([facility]) [place] [address] [address] 08/06/2020 12:00:00 AM EST eCW1 ([facility]) Outpatient Attender: MD YAKELIN CHAVEZ MDReferrer: MD YAKELIN WALKER MD [id number] 08/02/2020 12:00:00 AM EST - 08/02/2020 01:38:39 PM EST Migraine without aura, intractable, without status migrainosus [facility] Migraine without aura, intractable, with out status migrainosus [place] [address] [facility] [facility] [address] 07/31/2020 12:00:00 AM EST eCW1 ([facility]) [place] [address] [place] [address] 07/30/2020 12:00:00 AM EST eCW1 ([facility]) Outpatient Attender: RICO GARCÍA NP Physical Therapy 10:15:00 AM EST [facility] ([facility]) Outpatient Attender: SHARON PIRESAdm itter: ADRIENNE SYLVESTER MDReferrer: Desmond Lanza 07/20/2020 12:00:00 AM EST - 07/20/2020 03:07:32 PM EST [facility] stroke Inpatient Attender: Desmond Stacy r: ADRIENNE SYLVESTER MDAdmitter: ADRIENNE SYLVESTER MDReferrer: SHAYAN SUBRAMANIAN MDConsultant: Desmond OtiteConsultant: BEBO MARIN [id number] 07/19/2020 12:00:00 AM EST - 07/20/2020 01:05:00 PM EST [facility] stroke Patient discharged. Outpatient Attender: Desmond Daveyerrer: Desmond Lanza 07/19/2020 12:00:00 AM [facility] Outpatient Attender: Desmond Daveyerrer: Desmond Lanza 07/19/2020 12:00:00 AM [facility] Outpatient Attender: Desmond AndersoniteReferrer: Desmond Lanza 07/19/2020 12:00:00 AM [facility] Outpatient Attender: Tamela YANGeferrer: MD YAKELIN WALKER MD 07/19/2020 12:00:00 AM [facility] Outpatient Attender: STACIE COKO MD [id number] 12:00:00 AM [facility] - 07/18/2020 11:28:50 AM [facility] Outpatient Attender: STACIE COOK MD [id number] 12:00:00 AM [facility] - 07/11/2020 12:31:36 PM EST Elevated white blood cell count, unspecified [facility] Elevated white blood cell count, unspeci fied [place] [address] [address] 07/04/2020 12:00:00 AM EST [facility] Outpatient Attender: RICO GARCÍA ASSISTANT [employer] Physical Therapy 09:00:00 AM EDT [facility] ([facility]) [place] [address] [address] 06/20/2020 12:00:00 AM EDT eCW1 ([facility]) [place] [address] [place] [address] 06/20/2020 12:00:00 AM EDT eCW1 ([facility]) Outpatient Referrer: MD YAKELIN CHAVEZ MD 06/20/2020 12:00:00 AM [facility] Outpatient [address] [address] 06/18/2020 12:00:00 AM EDT [facility]CW1 [facility] [place] [address] [address] 06/15/2020 12:00:00 AM EDT eCW1 ([facility]) [place] [address] [address] 06/15/2020 12:00:00 AM EDT eCW1 ([facility]) [place] [address] [facility] [address] 06/15/2020 12:00:00 AM EDT eCW1 ([facility]) [place] [address] [facility] [address] 06/14/2020 12:00:00 AM EDT eCW1 ([facility]) Outpatient Attender: RICO GARCÍA ASSISTANT [employer] Physical Therapy 01:00:00 PM EDT [facility] ([facility]) Outpatient Attender: MD YAKELIN YANGeferrmatheus: MD YAKELIN WALKER MD [id number] 05/10/2020 12:00:00 AM EDT - 05/10/2020 01:48:44 PM EDT [facility] Outpatient Attender: Tamela Quintero: MD YAKELIN WALKER MD [id number] 04/26/2020 12:00:00 AM EDT - 04/26/2020 02:18:38 PM EDT Occipital neuralgia [facility] Occipital neuralgia Immunizations Vaccine Date Status Description Data Source(s) influenza, recombinant, quadrIvalent,injectable, prese rvative free 06/18/2020 09:36:00 AM EDT completed eCW1 ([facility]) influenza, recombinant, quadrIvalent,injectable, prese rvative free 06/18/2020 09:36:00 AM EDT completed eCW1 ([facility]) influenza, recombinant, quadrIvalent,injectable, prese rvative free 06/18/2020 09:36:00 AM EDT completed eCW1 ([facility]) influenza, recombinant, quadrIvalent,injectable, prese rvative free 06/18/2020 09:36:00 AM EDT completed eCW1 ([facility]) influenza, recombinant, quadrIvalent,injectable, prese rvative free 06/18/2020 09:36:00 AM EDT completed eCW1 ([facility]) influenza, recombinant, quadrIvalent,injectable, prese rvative free 06/18/2020 09:36:00 AM EDT completed eCW1 ([facility]) influenza, recombinant, quadrIvalent,injectable, prese rvative free 06/18/2020 09:36:00 AM EDT completed eCW1 ([facility]) influenza, recombinant, quadrIvalent,injectable, prese rvative free 06/18/2020 09:36:00 AM EDT completed eCW1 ([facility]) influenza, recombinant, quadrIvalent,injectable, prese rvative free 06/18/2020 09:36:00 AM EDT completed eCW1 ([facility]) influenza, recombinant, quadrIvalent,injectable, prese rvative free 06/18/2020 09:36:00 AM EDT completed eCW1 ([facility]) influenza, recombinant, quadrIvalent,injectable, prese rvative free 06/18/2020 09:36:00 AM EDT completed eCW1 ([facility]) influenza, recombinant, quadrIvalent,injectable, prese rvative free 06/18/2020 09:36:00 AM EDT completed eCW1 ([facility]) influenza, recombinant, quadrIvalent,injectable, prese rvative free 06/18/2020 09:36:00 AM EDT completed eCW1 ([facility]) influenza, recombinant, quadrIvalent,injectable, prese rvative free 06/18/2020 09:36:00 AM EDT completed eCW1 ([facility]) influenza, recombinant, quadrIvalent,injectable, prese rvative free 06/18/2020 09:36:00 AM EDT completed eCW1 ([facility]) influenza, recombinant, quadrIvalent,injectable, prese rvative free 06/18/2020 09:36:00 AM EDT completed eCW1 ([facility]) influenza, recombinant, quadrIvalent,injectable, prese rvative free 06/18/2020 09:36:00 AM EDT completed eCW1 ([facility]) influenza, recombinant, quadrIvalent,injectable, prese rvative free 06/18/2020 09:36:00 AM EDT completed eCW1 ([facility]) influenza, recombinant, quadrIvalent,injectable, prese rvative free 06/18/2020 09:36:00 AM EDT completed eCW1 ([facility]) influenza, recombinant, quadrIvalent,injectable, prese rvative free 06/18/2020 09:36:00 AM EDT completed eCW1 ([facility]) influenza, recombinant, quadrIvalent,injectable, prese rvative free 06/18/2020 09:36:00 AM EDT completed eCW1 ([facility]) influenza, recombinant, quadrIvalent,injectable, prese rvative free 06/18/2020 09:36:00 AM EDT completed eCW1 ([facility]) influenza, recombinant, quadrIvalent,injectable, prese rvative free 06/18/2020 09:36:00 AM EDT completed eCW1 ([facility]) influenza, recombinant, quadrIvalent,injectable, prese rvative free 06/18/2020 09:36:00 AM EDT completed eCW1 ([facility]) influenza, recombinant, quadrIvalent,injectable, prese rvative free 06/18/2020 09:36:00 AM EDT completed eCW1 ([facility]) influenza, recombinant, quadrIvalent,injectable, prese rvative free 06/18/2020 09:36:00 AM EDT completed eCW1 ([facility]) influenza, recombinant, quadrIvalent,injectable, prese rvative free 06/18/2020 09:36:00 AM EDT completed eCW1 ([facility]) influenza, recombinant, quadrIvalent,injectable, prese rvative free 06/18/2020 09:36:00 AM EDT completed eCW1 ([facility]) Medications Medication Brand Name Start Date Product Form Dose Route Admi nistrative Instructions Pharmacy Instructions Status Indications Reaction Description Data Source(s) 0.5 ML dulaglutide 1.5 MG/ML Auto-Injector [Trulicity] [facility] 06/10/2021 12:00:00 AM EDT active M KYE ([facility]) onabotulinumtoxinA 100 UNT/ML Injectable Solution onabotulinumtoxin type A (BOTOX) injection 185 Units onabotulinumtoxin type A (BOTOX) injecti on 185 Units 05/09/2021 01:15:00 PM EDT 185 U Intramuscular completed Chronic migraine 185 Units, Intramuscular, Once, On Jasmine at 1315, For 1 dose [facility] Chronic migraine Medication administered onsite Onetouch Delica Plus Lancets Fine 30G 05/01/2021 12:00:00 AM EDT active MEDENT ([facility] ) insulin lispro (HUMALOG) injection CUSTO MIZABLE DOSE INSULIN patients 1-40 Units [id number] 04/09/2021 08:00:00 AM EDT U Subcutaneous active 1-40 Units, Subcutaneous, Three Times Daily-With Meals, First dose on Thu04/09/21 at 0800, For 30 days
Nursing MUST open the 'SQ Insulin Dosing Charts' Sidebar Report, or, the Patient Summary or Summary Report within the ED.
Patient Type: Eating Meals
<70 give (units or other) for NPO or <15 gm carbohydrates solid food or full liquid (<30 gm if only clear liquid consumed): Hypoglycemia Protocol and then, once blood glucose level > 70 give insulin dose in 71-90 row regardless of new blood glucose level.
71-90 give (units) for NPO or <15 gm carbohydrates solid food or full liquid (<30 gm if only clear liquid consumed): 0
91-130 give (units) for NPO or <15 gm carbohydrates solid food or full liquid (<30 gm if only clear liquid consumed): 0
131-150 give (units) for NPO or <15 gm carbohydrates solid food or full liquid (<30 gm if only clear liquid consumed): 0
151-200 give (units) for NPO or <15 gm carbohydrates solid food or full liquid (<30 gm if only clear liquid consumed): 4
201-250 give (units) for NPO or <15 gm carbohydrates solid food or full liquid (<30 gm if only clear liquid consumed): 6
251-300 give (units) for NPO or <15 gm carbohydrates solid food or full liquid (<30 gm if only clear liquid consumed): 8
301-350 give (units) for NPO or <15 gm carbohydrates solid food or full liquid (<30 gm if only clear liquid consumed): 10
351-400 give (units) for NPO or <15 gm carbohydrates solid food or full liquid (<30 gm if only clear liquid consumed): 12
>401 give (units) AND NOTIFY for NPO or <15 gm carbohydrates solid food or full liquid (<30 gm if only clear liquid consumed): 14
<70 give (units or other) for 15-30 gm carbohydrates solid food or full liquid (30-45 gm if only clear liquid consumed): Hypoglycemia Protocol and then, once blood glucose level > 70 give insulin dose in 71-90 row regardless of new blood glucose level.
71-90 give (units) for 15-30 gm carbohydrates solid food or full liquid (30-45 gm if only clear liquid consumed): 4
91-130 give (units) for 15-30 gm carbohydrates solid food or full liquid (30-45 gm if only clear liquid consumed): 6
131-150 give (units) for 15-30 gm carbohydrates solid food or full liquid (30-45 gm if only clear liq uid consumed): 7
151-200 give (units) for 15-30 gm carbohydrates solid food or full liquid (30-45 gm if only clear liquid consumed): 8
201-250 give (units) for 15-30 gm carbohydrates solid food or full liquid (30-45 gm if only clear liquid consumed): 10
251-300 give (units) for 15-30 gm carbohydrates solid food or full liquid (30-45 gm if only clear liquid consumed): 12
301- 350 give (units) for 15-30 gm carbohydrates solid food or full liquid (30-45 gm if only clear liquid consumed): 14
351-400 give (units) for 15-30 gm carbohydrates solid food or full liquid (30-45 gm if only clear liquid consumed): 16
>401 give (units) AND NOTIFY for 15-30 gm carbohydrates solid food or full liquid (30-45 gm if only clear liquid consumed): 18
<70 give (units or other) for >30 gm carbohydrates solid food or full liquid (>45 gm if only clear liquid consumed): Hypoglycemia Protocol and then, once blood glucose level > 70 give insulin dose in 71-90 row regardless of new blood glucose level.
71-90 give (units) for >30 gm carbohydrates solid food or full liquid (>45 gm if only clear liquid consumed): 6
91-130 give (units) for >30 gm carbohydrates solid food or full liquid (>45 gm if only clear liquid consumed): 8
131-150 give (units) for >30 gm carbohydrates solid food or full liquid (>45 gm if only clear liquid consumed): 10
151-200 give (units) for >30 gm carbohydrates solid food or full liquid (>45 gm if only clear liquid consumed): 12
201-250 give (units) for >30 gm carbohydrates solid food or full liquid (>45 gm if only clear liquid consumed): 14
251-300 give (units) for >30 gm carbohydrates solid food or full liquid (>45 gm if only clear liquid consumed): 16
301-350 give (units) for >30 gm carbohydrates solid food or full liquid (>45 gm if only clear liquid consumed): 18
351-400 give (units) for >30 gm carbohydrates solid food or full liquid (>45 gm if only clear liquid consumed): 20
>401 give (units) AND NOTIFY for >30 gm carbohydrates solid food or full liquid (>45 gm if only clear liquid consumed): 22 [facility] Medication administered onsite Acetaminophen 325 MG Oral Tablet acetaminophen (TYLENO L) tablet 650 mg acetaminophen (TYLENOL) tablet 650 mg 04/08/2021 05:41:22 PM EDT 65 0 mg Oral active 650 mg, Oral, E very 6 hours PRN, Mild Pain (Pain Scale Score 1- 3), Starting on Thu04/08/21 at 1741, For 30 days
Maximum daily dose of acetaminophen is 3,000 mg from all sources in 24 hours.
[facility] Medication administered onsite heparin (porcine) 5000 UNIT/ML injection 5,000 Units [id number] 04/07/2021 09:00:00 PM EDT 5000 U Subcutaneous active 5,000 Units, Subcutaneous, 2 Times Daily, First dose on Thu04/07/21 at 2100, For 30 days [facility] Medication administered onsite insulin lispro (HumaLOG) injection HIGH DOSE EATING IN SULIN patients 1-22 Units [id number] 04/07/2021 06:00:00 PM EDT U Subcutaneous aborted 1-22 Units, Subcutaneous, Three Times Daily-With Meals, First dose on 04/07/21 at 1800, For 30 days
Nursing MUST open the 'SQ Insulin Dosing Charts' Sidebar Report, or, the Patient Summary or Summary Report within the ED.
[facility] Medication administered onsite Glucagon 1 MG Injection glucagon (human recombinant) ( GLUCAGEN) injection 1 mg glucagon (human recombinant) (GLUCAGEN) injection 1 mg 04/07/2021 03:25:47 PM EDT 1 mg Intramuscular active 1 mg, Intramuscular, PRN, for glucose <55 without IV access, Starting on 04/07/21 at 1525, For 30 days [facility] Medication administered onsite Glucose 0.417 MG/MG Oral Gel glucose (GLUTOSE) 40 % or al gel 15 g glucose (GLUTOSE) 40 % oral gel 15 g 04/07/2021 03:25:47 PM EDT 15 g Oral active 15 g, Oral, PRN, Low blood s ugar, for gluose 55-69 mg/dl and able to take PO, Starting on 04/07/21 at 1525, For 30 days [facility] Medication administered onsite dextrose 50 % IV solution 25 mL [id number] 04/07/2021 03:25:47 PM E DT 25 mL Intravenous active 25 mL, Intrav enous, PRN, Other, blood glucose <55, Starting on 04/07/21 at 1525, For 30 days
Not for midline administration.
[facility] Medication administered onsite gabapentin 300 MG Oral Capsule gabapentin (NEURONTIN) capsule 900 mg gabapentin (NEURONTIN) capsule 900 mg 04/06/2021 10:00:00 PM EDT 900 mg Oral active Neuropathic Pain 900 mg, Oral, Nightly, Indic ations: Neuropathic Pain, First dose on 04/06/21 at 2200, For 30 days [facility] Neuropathic Pain Medication administered onsite Insulin Glargine 100 UNT/ML Injectable S olution insulin glargine (LANTUS) injection 52 Units insulin glargine (LANTUS) injection 52 Units 10:00:00 PM EDT 52 U Subcutaneous active 52 Units, Subcutaneous, Nightly, First dose on 04/06/21 at 2200, For 30 days
For blood glucose less than 70 mg/dL: follow hypoglycemia protocol ( ) and notify provider.&amp ;nbsp; For blood glucose values between 70 mg/dL and 100 mg/dL at bedtime: provide snack (15 grams of carbohydrates) with some protein. Administer FULL DOSE of insulin glargine (LANTUS) after snack. Record snack in I&O's. For blood glucose more than 400 mg/dL: notify provider
[facility] Medication administered onsite Riboflavin 100 MG Oral Tablet Vitamin B-2 (RIBOFLAVIN) tablet TABS 200 mg Vitamin B-2 (RIBOFLAVIN) tablet TABS 200 mg 04/06/2021 10:00:00 PM EDT 200 mg Oral active 200 mg, Oral, Nightly, First dose (after last modification) on 04/06/21 at 2200, For 30 doses [facility] Medication administered onsite atorvastatin 40 MG Oral Tablet atorvastatin (LIPITOR) tablet 80 mg atorvastatin (LIPITOR) tablet 80 mg 04/06/2021 09:00:00 PM EDT 80 mg Oral active 80 mg, Oral, Every evening, First dose on 04/06/21 at 2100, For 30 doses [facility] Medication administered onsite Labetalol hydrochloride 200 MG Oral Tablet labetalol ( NORMODYNE) tablet 200 mg labetalol (NORMODYNE) tablet 200 mg 04/06/2021 09:00:00 PM EDT 200 mg Oral active 200 mg, Oral, Ev mario evening, First dose (after last reorder) on 04/06/21 at 2100, For 30 doses
Check vital signs before administering
[facility] Medication administered onsite ezetimibe 10 MG Oral Tablet ezetimibe (ZETIA) tablet 1 0 mg ezetimibe (ZETIA) tablet 10 mg 04/06/2021 09:00:00 AM EDT 10 mg Oral activ e 10 mg, Oral, Daily Standard, First dose on 04/06/21 at 0900, For 30 days [facility] Medication administered onsite Folic Acid 1 MG Oral Tablet folic acid (FOLVITE) table t 1 mg folic acid (FOLVITE) tablet 1 mg 04/06/2021 09:00:00 AM EDT 1 mg Oral active 1 mg, Oral, Daily Standard, First dose on 04/06/21 at 0900, For 30 days [facility] Medication administered onsite Amlodipine 5 MG Oral Tablet amlodipine (NORVASC) table t 5 mg amlodipine (NORVASC) tablet 5 mg 04/06/2021 09:00:00 AM EDT 5 mg Oral active 5 mg, Oral, Daily Standard, First dose on 04/06/21 at 0900, For 30 days
Check vital signs before administering
[facility] Medication administered onsite Lisinopril 5 MG Oral Tablet lisinopril (ZESTRIL) table t 5 mg lisinopril (ZESTRIL) tablet 5 mg 04/06/2021 09:00:00 AM EDT 5 mg Oral active 5 mg, Oral, Daily Standard, First dose on 04/06/21 at 0900, For 30 days
Check vital signs before administering
[facility] Medication administered onsite Magnesium Oxide 400 MG Oral Tablet magnesium oxide (MA G-OX) tablet 400 mg magnesium oxide (MAG-OX) tablet 400 mg 04/06/2021 09:00:00 AM EDT 4 00 mg Oral active 400 mg, Oral, T hree Times Daily Standard, First dose on 04/06/21 at 0900, For 30 days [facility] Medication administered onsite Aspirin 325 MG Oral Tablet aspirin tablet 325 mg aspirin tab let 325 mg 04/06/2021 09:00:00 AM EDT 325 mg Oral active 325 mg, Oral, Daily Standard, First dose on 04/06/21 at 0900, For 30 days [facility] Medication administered onsite topiramate 100 MG Oral Tablet topiramate (TOPAMAX) tab let 100 mg topiramate (TOPAMAX) tablet 100 mg 04/06/2021 09:00:00 AM EDT 100 mg Oral active 100 mg, Oral, 2 Times Daily, First dose on 04/06/21 at 0900, For 30 doses [facility] Medication administered onsite levocetirizine dihydrochloride 5 MG Oral Tablet levocetirizine (XYZAL) tablet 5 mg levocetirizine (XYZAL) tablet 5 mg 04/06/2021 09:00:00 AM EDT 5 mg Oral active 5 mg, Oral, Gilma y Standard, First dose on 04/06/21 at 0900, For 30 days [facility] Medication administered onsite insulin lispro (HumaLOG) injection MEDIU M DOSE EATING INSULIN patients 1-16 Units [id number] 04/06/2021 08:00:00 AM EDT U Subcutaneous aborted 1-16 Units, Subcutaneous, Three Times Daily-With Meals, First dose on 04/06/21 at 0800, For 30 days
Nursing MUST open the 'SQ Insulin Dosing Charts' Sidebar Report, or, the Patient Summary or Summary Report within the ED.
[facility] Medication administered onsite gabapentin 300 MG Oral Capsule gabapentin (NEURONTIN) capsule 300 mg gabapentin (NEURONTIN) capsule 300 mg 04/06/2021 06:45:00 AM EDT 300 mg Oral active Neuropathic Pain 300 mg, Oral, Once, Indicati ons: Neuropathic Pain, Due to missed dose, On 04/06/21 at 0645, For 1 dose [facility] Neuropathic Pain Medication administered onsite Glucose 0.417 MG/MG Oral Gel glucose (GLUTOSE) 40 % or al gel 15 g glucose (GLUTOSE) 40 % oral gel 15 g 04/06/2021 06:35:15 AM EDT 15 g Oral active 15 g, Oral, PRN, Low blood s ugar, for gluose 55-69 mg/dl and able to take PO, Starting on 04/06/21 at 0635, For 30 days [facility] Medication administered onsite Glucagon 1 MG Injection glucagon (human recombinant) ( GLUCAGEN) injection 1 mg glucagon (human recombinant) (GLUCAGEN) injection 1 mg 04/06/2021 06:35:15 AM EDT 1 mg Intramuscular active 1 mg, Intramuscular, PRN, for glucose <55 without IV access, Starting on 04/06/21 at 0635, For 30 days [facility] Medication administered onsite dextrose 50 % IV solution 25 mL [id number] 04/06/2021 06:35:15 AM E DT 25 mL Intravenous active 25 mL, Intrav enous, PRN, Other, blood glucose <55, Starting on 04/06/21 at 0635, For 30 days
Not for midline administration.
[facility] Medication administered onsite Meclizine Hydrochloride 12.5 MG Oral Tablet meclizine (ANTIVERT) tablet 25 mg meclizine (ANTIVERT) tablet 25 mg 04/06/2021 06:00:20 AM EDT 25 mg Oral active 25 mg, Oral, 2 Times Daily PRN, Dizziness, Nausea, Starting on 04/06/21 at 0600, For 30 days [facility] Medication administered onsite lactated ringers bolus 1,000 mL [id number] 04/06/2021 04:45:00 AM EDT 1000 mL Intravenous completed 1,000 mL , Intravenous, Once, On 04/06/21 at 0445, For 1 dose [facility] Medication administered onsite gabapentin 300 MG Oral Capsule Gabapentin 300 MG Oral Capsule (Neurontin) Gabapentin 300 MG Oral Capsule (Neurontin) 03/11/2021 12:00:00 AM EDT 900 mg Oral active Lumbar radiculopathy Take 3 ca psules by mouth nightly [facility] Lumbar radiculopathy onabotulinumtoxinA 100 UNT/ML Injectable Solution onabotulinumtoxin type A (BOTOX) injection 185 Units onabotulinumtoxin type A (BOTOX) injecti on 185 Units 02/14/2021 01:30:00 PM EDT 185 U Intramuscular completed Intractable migraine without aura and without status migrainosus 1 85 Units, Intramuscular, Once, On Jasmine 02/14/21 at 1330, For 1 dose [facility] Intractable migraine without aura and wi out status migrainosus Medication administered onsite Riboflavin 100 MG Oral Tablet B-2 100 MG Oral Tablet ( RIBOFLAVIN) B-2 100 MG Oral Tablet (RIBOFLAVIN) 01/31/2021 12:00:00 AM EDT 200 mg Oral active Migraine with aura and with status migrainosus, not intractable Take 2 tablets by mouth daily [facility] Migraine with aura and with status migra inosus, not intractable Magnesium Oxide 400 MG Oral Tablet Magnesium Oxide 400 MG Oral Tablet (MAG-OX) Magnesium Oxide 400 MG Oral Tablet (MAG-OX) 01/31/2021 12:00:00 AM EDT 400 mg Oral active Migraine with aura and with status migrainosus, not intractable Take 1 tablet by mouth Three times daily [facility] Migraine with aura and with status migra inosus, not intractable Ubrogepant 50 MG Oral Tablet [id number] 01/31/2021 12:00:00 AM EDT 50 mg Oral active Intractable migraine without aura and wi thout status migrainosusMigraine with aura and with status migrainosus, not intractable Take 50 mg by mouth Two times daily as needed Take one for acute headache, can repeat after 2 hours if needed. [facility] Intractable migraine without aura and wi thout status migrainosus Migraine with aura and with status migra inosus, not intractable Prednisone 10 MG Oral Tablet predniSONE 10 MG Oral Tab let (DELTASONE) predniSONE 10 MG Oral Tablet (DELTASONE) 01/31/2021 12:00:00 AM EDT aborted Status migrainosusChronic migraine 60 mg x1 day, 50mg x 1 day, 40 mg x 1 day, 30 mg x day, 20 mg x 1, 10 x 1 day, 5 x 1 day [facility] Status migrainosus Chronic migraine Cyclobenzaprine hydrochloride 5 MG Oral Tablet Cyclobenzaprine HCl 5 MG Oral Tablet (FLEXERIL) Cyclobenzaprine HCl 5 MG Oral Tablet (FLEXERIL) 2020 12:00:00 AM EDT 5 mg Oral active Neck painChronic migraine Take 1 tablet by mouth Three times daily as needed for Muscle spasms [facility] Neck pain Chronic migraine Lisinopril 5 MG Oral Tablet Lisinopril 5 MG Oral Table t (PRINIVIL,ZESTRIL) Lisinopril 5 MG Oral Tablet (PRINIVIL,ZESTRIL) 01/17/2021 12:00:00 AM EDT 5 mg Oral active Take 5 mg by mouth daily [facility] 3 ML Insulin Lispro 100 UNT/ML Pen Injector Insulin Lispro ( 1 Unit Dial) 01/03/2021 12:00:00 AM EDT active MEDENT ([facility] ) [employer] Blood Glucose Monitoring/Talking 01/03/2021 12:00:00 AM EDT active MEDENT ( [facility]) Admelog Solostar Admelog Solostar 12/31/2020 12:00:00 AM EDT completed MEDENT ([facility]) onabotulinumtoxinA 100 UNT/ML Injectable Solution onabotulinumtoxin type A (BOTOX) injection 185 Units onabotulinumtoxin type A (BOTOX) injecti on 185 Units 11/08/2020 01:45:00 PM EST 185 U Intramuscular completed Chronic migraine 185 Units, Intramuscular, Once, [facility] 11/08 at 1345, For 1 dose [facility] Chronic migraine Medication administered onsite Amlodipine 2.5 MG Oral Tablet amLODIPine Besylate 2.5 MG Oral Tablet (NORVASC) amLODIPine Besylate 2.5 MG Oral Tablet (NORVASC) 09/12/2020 12:00:00 AM EST 5 mg Oral active Take 5 mg by mouth daily [facility] topiramate 50 MG Oral Tablet Topiramate 50 MG Oral Tab let (TOPAMAX) Topiramate 50 MG Oral Tablet (TOPAMAX) 09/05/2020 12:00:00 AM EST 50 mg Oral aborted Chronic migraine Take 1 tablet by mouth Two T imes Daily Take with 25mg twice a day to make 75mg. [facility] Chronic migraine topiramate 25 MG Oral Tablet Topiramate 25 MG Oral Tab let (TOPAMAX) Topiramate 25 MG Oral Tablet (TOPAMAX) 09/05/2020 12:00:00 AM EST 25 mg Oral aborted Chronic migraine Take 1 tablet by mouth Two T imes Daily Take together to make 75mg. [facility] Chronic migraine Riboflavin 100 MG Oral Tablet B-2 100 MG Oral Tablet ( RIBOFLAVIN) B-2 100 MG Oral Tablet (RIBOFLAVIN) 09/05/2020 12:00:00 AM EST 200 mg Oral aborted Migraine with aura and with status migrainosus, not intractable Take 2 tablets by mouth daily [facility] Migraine with aura and with status migra inosus, not intractable Magnesium Oxide 400 MG Oral Tablet Magnesium Oxide 400 MG Oral Tablet (MAG-OX) Magnesium Oxide 400 MG Oral Tablet (MAG-OX) 09/05/2020 12:00:00 AM EST 400 mg Oral aborted Migraine with au ra and with status migrainosus, not intractable Take 1 tablet by mouth Two Times Daily [facility] Migraine with aura and with status migra inosus, not intractable topiramate 50 MG Oral Tablet Topiramate 50 MG Oral Tab let (TOPAMAX) Topiramate 50 MG Oral Tablet (TOPAMAX) 09/05/2020 12:00:00 AM EST 100 mg Oral active Chronic migraine Take 2 tablets by mouth Two Times Daily [facility] Chronic migraine onabotulinumtoxinA 100 UNT/ML Injectable Solution onabotulinumtoxin type A (BOTOX) injection 185 Units onabotulinumtoxin type A (BOTOX) injecti on 185 Units 08/02/2020 01:45:00 PM EST 185 U Intramuscular completed Intractable migraine without aura and without status migrainosus 1 85 Units, Intramuscular, Once, Jasmine 08/02/20 at 1345, For 1 dose [facility] Intractable migraine without aura and wi thout status migrainosus Medication administered onsite Mupirocin 0.02 MG/MG Topical Ointment Mupirocin 2 % Mupiroci n 2 % 07/31/2020 12:00:00 AM EST active Mupiroci n 2 % eCW1 ([facility]) Cephalexin 500 MG Oral Capsule [Keflex] Keflex 500 MG Keflex 500 MG 07/31/2020 12:00:00 AM EST 1.0 {capsule} active K eflex 500 MG eCW1 ([facility]) Mupirocin 0.02 MG/MG Topical Ointment Mupirocin 2 % Mupiroci n 2 % 07/31/2020 12:00:00 AM EST active Mupiroci n 2 % eCW1 ([facility]) Keflex 500 MG UNK 07/31/2020 12:00:00 AM EST 1.0 {capsule} active Keflex 500 MG eCW1 ([facility]) Cephalexin 500 MG Oral Capsule [Keflex] Keflex 500 MG Keflex 500 MG 07/31/2020 12:00:00 AM EST 1.0 {capsule} active K eflex 500 MG eCW1 ([facility]) Keflex 500 MG UNK 07/31/2020 12:00:00 AM EST 1.0 {capsule} active Keflex 500 MG eCW1 ([facility]) Mupirocin 0.02 MG/MG Topical Ointment Mupirocin 2 % Mupiroci n 2 % 07/31/2020 12:00:00 AM EST active Mupiroci n 2 % eCW1 ([facility]) Mupirocin 0.02 MG/MG Topical Ointment Mupirocin 2 % Mupiroci n 2 % 07/31/2020 12:00:00 AM EST active Mupiroci n 2 % eCW1 ([facility]) Mupirocin 0.02 MG/MG Topical Ointment Mupirocin 2 % Mupiroci n 2 % 07/31/2020 12:00:00 AM EST active Mupiroci n 2 % eCW1 ([facility]) Mupirocin 0.02 MG/MG Topical Ointment Mupirocin 2 % Mupiroci n 2 % 07/31/2020 12:00:00 AM EST active Mupiroci n 2 % eCW1 ([facility]) Mupirocin 0.02 MG/MG Topical Ointment Mupirocin 2 % Mupiroci n 2 % 07/31/2020 12:00:00 AM EST active Mupiroci n 2 % eCW1 ([facility]) Cephalexin 500 MG Oral Capsule [Keflex] Keflex 500 MG Keflex 500 MG 07/31/2020 12:00:00 AM EST 1.0 {capsule} active K eflex 500 MG eCW1 ([facility]) Keflex 500 MG UNK 07/31/2020 12:00:00 AM EST 1.0 {capsule} active Keflex 500 MG eCW1 ([facility]) Mupirocin 0.02 MG/MG Topical Ointment Mu pirocin 2 % External Ointment (BACTROBAN) Mupirocin 2 % External Ointment (BACTROBAN) 07/31/2020 12:00:00 AM EST 1 {Application} Topical aborted Apply 1 Application topically 3 (three) times daily - [facility] Mupirocin 0.02 MG/MG Topical Ointment Mupirocin 2 % Mupiroci n 2 % 07/31/2020 12:00:00 AM EST active Mupiroci n 2 % eCW1 ([facility]) Keflex 500 MG UNK 07/31/2020 12:00:00 AM EST 1.0 {capsule} active Keflex 500 MG eCW1 ([facility]) Keflex 500 MG UNK 07/31/2020 12:00:00 AM EST 1.0 {capsule} active Keflex 500 MG eCW1 ([facility]) Keflex 500 MG UNK 07/31/2020 12:00:00 AM EST 1.0 {capsule} active Keflex 500 MG eCW1 ([facility]) Mupirocin 0.02 MG/MG Topical Ointment Mupirocin 2 % Mupiroci n 2 % 07/31/2020 12:00:00 AM EST active Mupiroci n 2 % eCW1 ([facility]) Mupirocin 0.02 MG/MG Topical Ointment Mupirocin 2 % Mupiroci n 2 % 07/31/2020 12:00:00 AM EST active Mupiroci n 2 % eCW1 ([facility]) Mupirocin 0.02 MG/MG Topical Ointment Mupirocin 2 % Mupiroci n 2 % 07/31/2020 12:00:00 AM EST active Mupiroci n 2 % eCW1 ([facility]) Keflex 500 MG UNK 07/31/2020 12:00:00 AM EST 1.0 {capsule} active Keflex 500 MG eCW1 ([facility]) Cephalexin 500 MG Oral Capsule Cephalexin 500 MG Oral Capsule (KEFLEX) Cephalexin 500 MG Oral Capsule (KEFLEX) 07/31/2020 12:00:00 AM EST 500 mg Oral aborted Take 500 mg by mouth Two Times Daily [facility] Keflex 500 MG UNK 07/31/2020 12:00:00 AM EST 1.0 {capsule} active Keflex 500 MG eCW1 ([facility]) Admelog SoloStar 100 UNIT/ML Subcutaneous Solution Pen-injec tor [id number] 07/25/2020 12:00:00 AM EST 1 {pen} Subcutaneous active Inject 1 pen into the skin Three times daily before meals 8U breakfast, 10U at lunch, 10 at dinner [facility] 3 ML Insulin Lispro 100 UNT/ML Pen Injector Insulin Lispro ( 1 Unit Dial) 07/24/2020 12:00:00 AM EST completed MEDENT ([facility]) Lisinopril 20 MG Oral Tablet Lisinopril 20 MG Oral Tab let (ZESTRIL) Lisinopril 20 MG Oral Tablet (ZESTRIL) 07/21/2020 12:00:00 AM EST 20 mg Oral aborted Take 1 tablet by mouth daily [facility] Lisinopril 20 MG Oral Tablet lisinopril (ZESTRIL) tabl et 20 mg lisinopril (ZESTRIL) tablet 20 mg 07/20/2020 09:00:00 AM EST 20 mg Oral active 20 mg, Oral, Daily Standard, First dose (after last modification) on Thu07/20/20 at 0900, For 29 doses [facility] Medication administered onsite Insulin Glargine 100 UNT/ML Injectable S olution insulin glargine (LANTUS) injection 50 Units insulin glargine (LANTUS) injection 50 Units 0 10:00:00 PM EST 50 U Subcutaneous active 50 Units, Subcutaneous, Nightly, First dose (after last reorder) on Jasmine 07/19/20 at 2200, For 30 doses
For blood glucose less than 70 mg/dL: follow hypoglycemia protocol ( ) and notify provider. For blood glucose values between 70 mg/dL and 100 mg/dL at bedtime: provide snack (15 grams of carbohydrates) with some protein. Administer FULL DOSE of insulin glargine (LANTUS) after snack. Record snack in I&O's. For blood glucose more than 400 mg/dL: notify provider
[facility] Medication administered onsite ezetimibe 10 MG Oral Tablet ezetimibe (ZETIA) tablet 1 0 mg ezetimibe (ZETIA) tablet 10 mg 07/19/2020 10:00:00 PM EST 10 mg Oral activ e 10 mg, Oral, Nightly, First dose on Jasmine 07/19/20 at 2200, For 30 days [facility] Medication administered onsite Aspirin 325 MG Oral Tablet aspirin tablet 325 mg aspirin tab let 325 mg 07/19/2020 09:00:00 AM EST 325 mg Oral active 325 mg, Oral, Daily Standard, First dose on Thu07/19/20 at 0900, For 3 doses [facility] Medication administered onsite topiramate 25 MG Oral Tablet topiramate (TOPAMAX) tabl et 75 mg topiramate (TOPAMAX) tablet 75 mg 07/19/2020 09:00:00 AM EST 75 mg Oral active 75 mg, Oral, 2 Times Daily, First dose (after last modification) on Thu07/19/20 at 0900, For 7 days [facility] Medication administered onsite Magnesium Oxide 400 MG Oral Tablet Magnesium Oxide (MA G-OX) tablet 400 mg Magnesium Oxide (MAG-OX) tablet 400 mg 07/19/2020 09:00:00 AM EST 4 00 mg Oral active 400 mg, Oral, D aily Standard, First dose on Thu07/19/20 at 0900, For 30 days [facility] Medication administered onsite 0.4 ML Enoxaparin sodium 100 MG/ML Prefi lled Syringe enoxaparin sodium (LOVENOX) injection 40 mg enoxaparin sodium (LOVENOX) injection 40 mg 07/19/2020 09:00:00 AM EST 40 mg Subcutaneous active 40 mg, Subcutaneous, Daily Standard, First dose on Thu07/19/20 at 0900, For 30 days [facility] Medication administered onsite Folic Acid 1 MG Oral Tablet folic acid (FOLVITE) table t 1 mg folic acid (FOLVITE) tablet 1 mg 07/19/2020 09:00:00 AM EST 1 mg Oral active 1 mg, Oral, Daily Standard, First dose on Thu07/19/20 at 0900, For 30 days [facility] Medication administered onsite Lisinopril 10 MG Oral Tablet lisinopril (ZESTRIL) tabl et 10 mg lisinopril (ZESTRIL) tablet 10 mg 07/19/2020 09:00:00 AM EST 10 mg Oral aborted 10 mg, Oral, Daily Standard, First dose on Thu07/19/20 at 0900, For 30 days [facility] Medication administered onsite Labetalol hydrochloride 200 MG Oral Tablet labetalol ( NORMODYNE) tablet 200 mg labetalol (NORMODYNE) tablet 200 mg 07/19/2020 09:00:00 AM EST 200 mg Oral active 200 mg, Oral, Da mason Standard, First dose on Jasmine 07/19/20 at 0900, For 30 days
Check vital signs before administering
[facility] Medication administered onsite insulin lispro (HumaLOG) injection HIGH DOSE EATING IN SULIN patients 1-22 Units [id number] 07/19/2020 08:00:00 AM EST U Subcutaneous active 1-22 Units, Subcutaneous, Three Times Daily-With Meals, First dose on Jasmine 07/19/20 at 0800, For 30 days
Nursing MUST open the 'SQ Insulin Dosing Charts' Sidebar Report, or, the Patient Summary or Summary Report within the ED.
[facility] Medication administered onsite ferrous sulfate 325 MG Oral Tablet ferrous sulfate tab let 325 mg ferrous sulfate tablet 325 mg 07/19/2020 08:00:00 AM EST 325 mg Oral act alexis 325 mg, Oral, Daily with Breakfast, First dose on Jasmine 07/19/20 at 0800, For 30 days [facility] Medication administered onsite sodium chloride 0.9 % bolus 1,000 mL [id number] 07/19/2020 06:45: 00 AM EST 1000 mL Intravenous completed 1,000 mL , Intravenous, Once, Jasmine 07/19/20 at 0645, For 1 dose
Hyponatremic on labs so 1 L bolus needed
[facility] Medication administered onsite Acetaminophen 325 MG Oral Tablet acetaminophen (TYLENO L) tablet 650 mg acetaminophen (TYLENOL) tablet 650 mg 07/19/2020 03:56:14 AM EST 65 0 mg Oral active 650 mg, Oral, E very 6 hours PRN, Mild Pain (Pain Scale Score 1- 3), Starting Jasmine 07/19/20 at 0356, For 30 days
Maximum daily dose of acetaminophen is 3,000 mg from all sources in 24 hours.
[facility] Medication administered onsite Insulin Glargine 100 UNT/ML Injectable S olution insulin glargine (LANTUS) injection 50 Units insulin glargine (LANTUS) injection 50 Units 0 02:15:00 AM EST 50 U Subcutaneous completed 50 Units, Subcutaneous, Once, Jasmine 07/19/20 at 0215, For 1 dose
For blood glucose less than 70 mg/dL: follow hypoglycemia protocol ( ) and notify provider. For blood glucose values between 70 mg/dL and 100 mg/dL at bedtime: provide snack (15 grams of carbohydrates) with some protein. Administer FULL DOSE of insulin glargine (LANTUS) after snack. Record snack in I&O's. For blood glucose more than 400 mg/dL: notify provider
[facility] Medication administered onsite Riboflavin 100 MG Oral Tablet Vitamin B-2 (RIBOFLAVIN) tablet TABS 400 mg Vitamin B-2 (RIBOFLAVIN) tablet TABS 400 mg 07/19/2020 02:15:00 AM EST 400 mg Oral active 400 mg, Oral, Daily Standard, First dose on Jasmine 07/19/20 at 0215, For 30 days [facility] Medication administered onsite dextrose 50 % IV solution 25 mL [id number] 07/19/2020 02:03:[address] 25 mL Intravenous active 25 mL, Intrav enous, PRN, Other, blood glucose <55, Starting Jasmine 07/19/20 at 0203, For 30 days
Not for midline administration.
[facility] Medication administered onsite Glucagon 1 MG Injection glucagon (human recombinant) ( GLUCAGEN) injection 1 mg glucagon (human recombinant) (GLUCAGEN) injection 1 mg 07/19/2020 02:03:33 AM EST 1 mg Intramuscular active 1 mg, Intramuscular, PRN, for glucose <55 without IV access, Starting Jasmine 07/19/20 at 0203, For 30 days [facility] Medication administered onsite Glucose 0.417 MG/MG Oral Gel glucose (GLUTOSE) 40 % or al gel 15 g glucose (GLUTOSE) 40 % oral gel 15 g 07/19/2020 02:03:33 AM EST 15 g Oral active 15 g, Oral, PRN, Low blood s ugar, for gluose 55-69 mg/dl and able to take PO, Starting Jasmine 07/19/20 at 0203, For 30 days [facility] Medication administered onsite 24 HR Metformin hydrochloride 500 MG Extended Release Oral Tablet Metformin HCL ER 07/06/2020 12:00:00 AM EST ORAL completed [facility] ([facility]) Admelog Admelog 06/28/2020 12:00:00 AM EDT complet ed MEDENT ([facility]) BD Insulin Syringe Ultra-Fine/0.5ML/31G X 8mm 06/28/2020 1 2:00:00 AM EDT active [facility] ([facility]) topiramate 25 MG Oral Tablet [Topamax] Topamax 25 MG Topamax 25 MG 06/15/2020 12:00:00 AM EDT 1.0 {tablet} active To pamax 25 MG eCW1 ([facility]) topiramate 25 MG Oral Tablet [Topamax] Topamax 25 MG Topamax 25 MG 06/15/2020 12:00:00 AM EDT 1.0 {tablet} active To pamax 25 MG eCW1 ([facility]) topiramate 25 MG Oral Tablet [Topamax] Topamax 25 MG Topamax 25 MG 06/15/2020 12:00:00 AM EDT 1.0 {tablet} active To pamax 25 MG eCW1 ([facility]) topiramate 25 MG Oral Tablet [Topamax] Topamax 25 MG Topamax 25 MG 06/15/2020 12:00:00 AM EDT 1.0 {tablet} active To pamax 25 MG eCW1 ([facility]) topiramate 25 MG Oral Tablet [Topamax] Topamax 25 MG Topamax 25 MG 06/15/2020 12:00:00 AM EDT 1.0 {tablet} active To pamax 25 MG eCW1 ([facility]) topiramate 25 MG Oral Tablet [Topamax] Topamax 25 MG Topamax 25 MG 06/15/2020 12:00:00 AM EDT 1.0 {tablet} active To pamax 25 MG eCW1 ([facility]) topiramate 25 MG Oral Tablet [Topamax] Topamax 25 MG Topamax 25 MG 06/15/2020 12:00:00 AM EDT 1.0 {tablet} active To pamax 25 MG eCW1 ([facility]) topiramate 25 MG Oral Tablet [Topamax] Topamax 25 MG Topamax 25 MG 06/15/2020 12:00:00 AM EDT 1.0 {tablet} active To pamax 25 MG eCW1 ([facility]) topiramate 25 MG Oral Tablet [Topamax] Topamax 25 MG Topamax 25 MG 06/15/2020 12:00:00 AM EDT 1.0 {tablet} active To pamax 25 MG eCW1 ([facility]) topiramate 25 MG Oral Tablet [Topamax] Topamax 25 MG Topamax 25 MG 06/15/2020 12:00:00 AM EDT 1.0 {tablet} active To pamax 25 MG eCW1 ([facility]) topiramate 25 MG Oral Tablet [Topamax] Topamax 25 MG Topamax 25 MG 06/15/2020 12:00:00 AM EDT 1.0 {tablet} active To pamax 25 MG eCW1 ([facility]) topiramate 25 MG Oral Tablet [Topamax] Topamax 25 MG Topamax 25 MG 06/15/2020 12:00:00 AM EDT 1.0 {tablet} active To pamax 25 MG eCW1 ([facility]) topiramate 25 MG Oral Tablet [Topamax] Topamax 25 MG Topamax 25 MG 06/15/2020 12:00:00 AM EDT 1.0 {tablet} active To pamax 25 MG eCW1 ([facility]) topiramate 25 MG Oral Tablet [Topamax] Topamax 25 MG Topamax 25 MG 06/15/2020 12:00:00 AM EDT 1.0 {tablet} active To pamax 25 MG eCW1 ([facility]) topiramate 25 MG Oral Tablet [Topamax] Topamax 25 MG Topamax 25 MG 06/15/2020 12:00:00 AM EDT 1.0 {tablet} active To pamax 25 MG eCW1 ([facility]) topiramate 25 MG Oral Tablet [Topamax] Topamax 25 MG Topamax 25 MG 06/15/2020 12:00:00 AM EDT 1.0 {tablet} active To pamax 25 MG eCW1 ([facility]) topiramate 25 MG Oral Tablet [Topamax] Topamax 25 MG Topamax 25 MG 06/15/2020 12:00:00 AM EDT 1.0 {tablet} active To pamax 25 MG eCW1 ([facility]) topiramate 25 MG Oral Tablet [Topamax] Topamax 25 MG Topamax 25 MG 06/15/2020 12:00:00 AM EDT 1.0 {tablet} active To pamax 25 MG eCW1 ([facility]) topiramate 25 MG Oral Tablet [Topamax] Topamax 25 MG Topamax 25 MG 06/15/2020 12:00:00 AM EDT 1.0 {tablet} active To pamax 25 MG eCW1 ([facility]) onabotulinumtoxinA 100 UNT/ML Injectable Solution onabotulinumtoxin type A (BOTOX) injection 185 Units onabotulinumtoxin type A (BOTOX) injecti on 185 Units 05/10/2020 01:15:00 PM EDT 185 U Intramuscular completed Chronic migraine 185 Units, Intramuscular, Once, Jasmine 05/10 at 1315, For 1 dose [facility] Chronic migraine Medication administered onsite Menthol 160 MG/ML Topical [place] Aspercre me Max Roll-On 16 % External Liquid (Menthol (Topical Analgesic)) Aspercreme Max Roll-On 16 % External Liq uid (Menthol (Topical Analgesic)) 05/10/2020 12:00:00 AM EDT 1 {Appl ication} Apply externally active Chronic migraine Apply 1 Application topically Four times daily as needed [facility] Chronic migraine Lidocaine Hydrochloride 0.02 MG/MG Topical Gel Lidocai ne 2 % External Gel Lidocaine 2 % External Gel 04/26/2020 12:00:00 AM EDT 1 g Appl y externally active Bilateral occipital neuralgia Ap ply 1 g topically Twice Daily For local application over the tender areas in the neck/shoulder [facility] Bilateral occipital neuralgia Ubrogepant 50 MG Oral Tablet [id number] 04/19/2020 12:00:00 AM EDT 50 mg Oral aborted Intractable migraine without aura and wi thout status migrainosusMigraine with aura and with status migrainosus, not intractable Take 50 mg by mouth Two times daily as needed (Take 50 mg for acute headache; may repeat once based on response and tolerability after >2 hours.) for up to 10 doses. Don't take more than 10 tablets in a month [facility] Intractable migraine without aura and wi thout status migrainosus Migraine with aura and with status migra inosus, not intractable topiramate 25 MG Oral Tablet Topiramate 25 MG Oral Tab let (TOPAMAX) Topiramate 25 MG Oral Tablet (TOPAMAX) 10/04/2019 12:00:00 AM EST 25 mg Oral aborted Chronic migraine Take 1 tablet by mouth Two T imes Daily Take together to make 75mg. [facility] Chronic migraine topiramate 50 MG Oral Tablet Topiramate 50 MG Oral Tab let (TOPAMAX) Topiramate 50 MG Oral Tablet (TOPAMAX) 10/04/2019 12:00:00 AM EST 50 mg Oral aborted Chronic migraine Take 1 tablet by mouth Two T imes Daily Take with 25mg twice a day to make 75mg. [facility] Chronic migraine Riboflavin 100 MG Oral Tablet B-2 100 MG Oral Tablet ( RIBOFLAVIN) B-2 100 MG Oral Tablet (RIBOFLAVIN) 10/04/2019 12:00:00 AM EST 200 mg Oral aborted Migraine with aura and with status migrainosus, not intractable Take 2 tablets by mouth daily [facility] Migraine with aura and with status migra inosus, not intractable Magnesium Oxide 400 MG Oral Tablet Magnesium Oxide 400 MG Oral Tablet (MAG-OX) Magnesium Oxide 400 MG Oral Tablet (MAG-OX) 10/04/2019 12:00:00 AM EST 400 mg Oral aborted Migraine with au ra and with status migrainosus, not intractable Take 1 tablet by mouth Two Times Daily [facility] Migraine with aura and with status migra inosus, not intractable ferrous gluconate 324 MG Oral Tablet Reg sabino Gluconate 324 (38 Fe) MG Oral Tablet (FERGON) Ferrous Gluconate 324 (38 Fe) MG Oral Tablet (FERGON) 09/30/2019 12:00:00 AM EST 1 {tbl} Oral aborted Take 1 tablet by mouth daily [facility] Vitamin B 12 1 MG Extended Release Oral Tablet B-12 1000 MCG Oral Tablet Extended Release B-12 1000 MCG Oral Tablet Extended Release 09/27/2019 12:00:00 AM EST 1 {tbl} Oral aborted Take 1 tablet b y mouth daily [facility] Lisinopril 5 MG Oral Tablet lisinopril (PRINIVIL,ZESTR IL) 5 MG tablet lisinopril (PRINIVIL,ZESTRIL) 5 MG tablet 04/25/2019 12:00:00 AM EDT 10 mg O ral aborted Take 10 mg by mouth daily [facility] atorvastatin 80 MG Oral Tablet Atorvastatin Calcium 80 MG Oral Tablet (LIPITOR) Atorvastatin Calcium 80 MG Oral Tablet (LIPITOR) 80 mg Oral aborted Take 80 mg by mouth daily [facility] 24 HR Metformin hydrochloride 500 MG Ext ended Release Oral Tablet metformin (GLUCOPHAGE-XR) 500 MG 24 hr tablet metformin (GLUCOPHAGE-XR) 500 MG 24 hr tablet 1000 mg Oral aborted Take 1,0 00 mg by mouth Two Times Daily with evening meal. [facility] Insurance Providers Payer name Policy type / Coverage type Policy ID Covered green party ID Covered green party's relationship to claudio Policy Claudio Plan Information MEDICAID M [id number] Self [id number] [facility] I [id number] Self [id number] [place] F [id number] SELF [id number] [place] F [id number] SELF [id number] [facility] Comm Plan Medicaid F [id number] SELF [id number] [facility] [id number] SP [id number] [facility] Comm Plan Medicaid F [id number] SELF [id number] [facility] I [id number] Self [id number] [facility] I [id number] Self [id number] [facility] [id number] SP [id number] ANSI-Medicaid [id number] ANSI-Commercial [id number] ANSI-Commercial [id number] [facility] [id number] ANSI-Commercial [id number] [facility] [id number] [facility] [id number] ANSI-Commercial [id number] ANSI-Commercial [id number] [facility] [id number] ANSI-Commercial [id number] [facility] [id number] ANSI-Commercial [id number] ANSI-Medicaid [id number] [employer]icaid [id number] ANSIReblsCommercial [id number] [employer]Med[employer] [id number] [employer] [id number] [employer]icaid [id number] [employer] [id number] [employer] [id number] [employer]Medicaid [id number] ANSIReblsCommercial [id number] ANSI-Medicaid [id number] ANSI-Commercial [id number] ANSI-Medicaid [id number] [facility] [id number] ANSIReblsCommercial [id number] [facility] [id number] [employer] [id number] [facility] [id number] ANSIReblsCommercial [id number] ANSI-Medicaid [id number] ANSI-Commercial [id number] ANSI-Medicaid [id number] ANSI-Commercial [id number] ANSI-Commercial [id number] [facility] [id number] [facility] [id number] [employer] [id number] [facility] [id number] ANSIReblsCommercial [id number] ANSI-Commercial [id number] ANSI-Medicaid [id number] ANSI-Commercial [id number] ANSI-Medicaid [id number] ANSI-Medicaid [id number] ANSI-Commercial [id number] ANSI-Commercial [id number] ANSI-Medicaid [id number] ANSI-Commercial [id number] ANSI-Medicaid [id number] ANSI-Medicaid [id number] ANSI-Commercial [id number] ANSI-Medicaid [id number] ANSI-Commercial g17b8f9t-22we-0yob-6rgg-73fza541su3a t35h9w2q-28sw-3tjf-5srx-45rhy919md2w ANSI-Commercial [id number]-[id number]-[id number] ANSI-Medicaid [id number] [facility] [id number] ANSI-Commercial [id number]-46pg26k9gi6f [id number]-57eo53z0yf7c ANSI-Medicaid [id number] ANSI-Commercial [id number]-s44u-[id number] ANSI-Medicaid [id number] ANSI-Commercial y6978dzt-b156-03m1-[id number] g9328vte-h566-06w7-[id number] ANSI-Medicaid [id number] ANSI-Commercial y51u8km0-8758-3917-7jl8-5718k647i3uz h08h9wh1-8470-7502-2fg9-7170c584r2ve ANSI-Medicaid [id number] [facility] [id number]-[id number] 4542mk10-l5o6-1o6g-idi0-[id number] ANSI-Medicaid [id number] [employer] [employer] 4j02443n-61si-2ftw-q169-80219v19w9k5 6i18844d-91hv-3bmw-f108-51423x06p7v3 [employer] 9637rks4-mk55-0252-6s63-6349041ef48o 1997lau7-vp67-5096-2z99-3164189ck26c [facility]-Medicaid [id number] [employer] f2q8955e-8586-91a1-50b1-22x95ezi1ixm e9b8630o-9937-25w9-04d1-20l11dsg5ddn [facility]-Medicaid [id number] [facility] p78r5px3-e5og-37r4-74q6-[id number] t59n2ig3-k6gc-33q6-02m4-p931n6662g53 [facility]IReblsMedicaid [id number] [facility] [id number] S [id number] [facility] [id number] S [id number] [facility] [id number] S [id number] [facility] COMMUNTY PLAN [id number] 18 [id number] [facility] Communty Plan Medicaid [id number] Self [id number] [facility] Communty Plan Medicaid [id number] Self [id number] [facility] [id number] SP [id number] [place] [id number] SP [id number] [address] [place] Medicaid [id number] Self [employer] Health Maintenance Organization (HMO) [id number] Self [facility] CARE [place] O [id number] S [id number] [facility]) P [id number] S [id number] [facility] P UNAVAILABLE [id number] S UNAVAILABLE [employer]CELL[employer] BCBS P [id number] S [id number] [id number] BC HMOBLUE OPTION MC 2 [id number] 1 [id number] [place] 3 [id number] Y BLUE CROSS [place] PLAN [id number] SP [id number] HMO BLUE [id number] SP [id number] SELF PAY 2 UNAVAILABLE 1 UNAVAILA BLE [id number] UNHC COMMUNITY PLAN MCDHMO [id number] SP [id number] [employer] COMMUNITY PLAN MCDHMO [id number] SP [id number] [facility] O [id number] S [id number] ANSI-Commercial [id number] ANSI-Medicaid [id number] ANSI-Medicaid [id number] ANSI-Commercial [id number] ANSI-Medicaid [id number] ANSI-Commercial [id number] Problems, Conditions, and Diagnoses Code Display Name Description Problem Type Effective Dates Data Source(s) M54.81 Occipital neuralgia Occipital neuralgia Diagnosis 1 12:08:58 PM [facility] 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 Other disord ers of trigeminal nerve Diagnosis 06/27/2021 12:08:58 PM [facility] bilateral weak legs bilateral weak legs Diagnosis 021 06:05:00 PM [facility] R29.6 Repeated falls Repeated falls Diagnosis 03/14/2021 10:27: 55 AM [facility] E78.5 Hyperlipidemia, unspecified Hyperlipidemia, unspecifie d Diagnosis 02/06/2021 09:51:29 AM [facility] I70.0 Atherosclerosis of aorta Atherosclerosis of aorta Diag nosis 02/06/2021 09:51:18 AM [facility] Z95.818 Presence of other cardiac implants and g rafts Presence of other cardiac implants and grafts Diagnosis 02/06/2021 09:51:02 AM [facility] M54.2 Cervicalgia Cervicalgia Diagnosis 01/31/2021 11:20:25 AM [facility] G43.101 Migraine with aura, not intractable, wit h status migrainosus Migraine with aura, not intractable, with status migrainosus Diagnosis 11:20:25 AM [facility] G43.901 Migraine, unspecified, not intractable, with status migrainosus Migraine, unspecified, not intractable, with status migrainosus Diagnosis 01/31/2021 11:20:25 AM [facility] M60.9 Myositis, unspecified Myositis, unspecified Diagnosis 12/27/2020 12:20:01 PM [facility] G62.89 Other specified polyneuropathies Other specified polyneuropathies Diagnosis 10/04/2020 08:28:10 AM [facility] R26.89 Other abnormalities of gait and mobility Other abnormalities of gait and mobility Diagnosis 10/01/2020 09:30:00 AM [facility] I63.9 Cerebral infarction, unspecified Cerebral infarc tion, unspecified Diagnosis 09/25/2020 08:46:57 AM [facility] Cryptogenic stroke Cryptogenic stroke Diagnosis 08:21:00 AM [facility] Cryptogenic stroke [I63.9] Cryptogenic stroke [I63.9] Diagnosis 09/25/2020 08:21:00 AM [facility] G50.0 Trigeminal neuralgia Trigeminal neuralgia Diagnosis 08/16/2020 10:48:45 AM [facility] Right thalamic infarction Right thalamic infarction Di agnosis 07/20/2020 03:07:15 PM [facility] I10 Essential (primary) hypertension Essential (primary) h ypertension Diagnosis 07/19/2020 09:38:00 AM [facility] stroke stroke Diagnosis 07/19/2020 01:18:00 AM [facility] J31.0 [id number] Chronic rhinitis Problem 06/18/2021 12:00:00 AM EDT eCW1 ([facility]) N91.2 [id number] Amenorrhea Problem 06/18/2021 12:00:00 AM ED T [facility] ([facility]) E78.5 [id number] Dyslipidemia Problem 06/18/2021 12:00:00 AM [address]T [facility] ([facility]) N18.32 [id number] Stage 3b chronic kidney disease Problem 06/18/2021 12:00:00 AM EDT eCW1 ([facility]) G43.709 [id number] Chronic migraine wit hout aura, not intractable, without status migrainosus Problem 06/13/2021 12:00:00 AM EDT eCW1 ([facility] M51.36 [id number] Other intervertebral disc degeneration, l umbar region Problem 06/03/2021 12:00:00 AM EDT eCW1 ([facility]) [id number] Type 2 diabetes mellitus Type 2 diabetes mellitus Prob david 12/24/2020 12:00:00 AM EDT [facility] ([facility] G43.709 [id number] Chronic migraine Problem 11/29/2020 12:00:00 AM EDT eCW1 ([facility]) Surgeries/Procedures Procedure Description Date Indications Data Source(s) OFFICE OUTPATIENT VISIT 40 MINUTES 06/10/2021 12:00:00 AM EDT [facility] ([facility]) OFFICE OUTPATIENT VISIT 25 MINUTES 05/09/2021 12:00:00 AM EDT [facility] ([facility]) POCT GLUCOSE, DOCKED <td>POCT GLUCOSE, DOCKED</td ><td>Routine</td><td>04/09/2021 12:14 PM EDT</td><td></td><td> </td> 04/09/2021 12:14:00 PM [facility] POCT GLUCOSE, DOCKED <td>POCT GLUCOSE, DOCKED</td ><td>Routine</td><td>04/09/2021 8:41 AM EDT</td><td></td><td> </td> 04/09/2021 08:41:00 AM [facility] BLOOD COUNT COMPLETE AUTO&AUTO DIFRNTL WBC COUNT <td>C BC AND DIFFERENTIAL</td><td>Routine</td><td>04/09/2021 6:05 AM EDT</td><td></td><td> </td> 04/09/2021 06:05:00 AM [facility] BASIC METABOLIC PANEL CALCIUM TOTAL <td>BASIC METABOLI C PANEL</td><td>Routine</td><td>04/09/2021 6:05 AM EDT</td><td></td><td> </td> 04/09/2021 06:05:00 AM [facility] GLUCOSE QUANTITATIVE BLOOD XCPT REAGENT STRIP <td>POCT GLUCOSE, DOCKED</td><td>Routine</td><td>04/08/2021 9:16 PM EDT</td><td></td><td> </td> 04/08/2021 09:16:00 PM [facility] GLUCOSE QUANTITATIVE BLOOD XCPT REAGENT STRIP <td>POCT GLUCOSE, DOCKED</td><td>Routine</td><td>04/08/2021 5:10 PM EDT</td><td></td><td> </td> 04/08/2021 05:10:00 PM [facility] GLUCOSE QUANTITATIVE BLOOD XCPT REAGENT STRIP <td>POCT GLUCOSE, DOCKED</td><td>Routine</td><td>04/08/2021 12:45 PM EDT</td><td></td><td> </td> 04/08/2021 12:45:00 PM [facility] VASC LAB US DOPPLER LOWER EXTREMITY BILATERAL VENOUS C OMP 51527 <td>VASC LAB US DOPPLER LOWER EXTREMITY BILATERAL VENOUS COMP 74334</td><td>Routine</td><td>04/08/2021 9:43 AM EDT</td><td></td><td></td> 04/08/2021 09:43:00 AM [facility] GLUCOSE QUANTITATIVE BLOOD XCPT REAGENT STRIP <td>POCT GLUCOSE, DOCKED</td><td>Routine</td><td>04/08/2021 8:42 AM EDT</td><td></td><td> </td> 04/08/2021 08:42:00 AM [facility] GLUCOSE QUANTITATIVE BLOOD XCPT REAGENT STRIP <td>POCT GLUCOSE, DOCKED</td><td>Routine</td><td>04/08/2021 8:29 AM EDT</td><td></td><td> </td> 04/08/2021 08:29:00 AM [facility] BLOOD COUNT COMPLETE AUTO&AUTO DIFRNTL WBC COUNT <td>C BC AND DIFFERENTIAL</td><td>Routine</td><td>04/08/2021 3:47 AM EDT</td><td></td><td> </td> 04/08/2021 03:47:00 AM [facility] BASIC METABOLIC PANEL CALCIUM TOTAL <td>BASIC METABOLI C PANEL</td><td>Routine</td><td>04/08/2021 3:47 AM EDT</td><td></td><td> </td> 04/08/2021 03:47:00 AM [facility] GLUCOSE QUANTITATIVE BLOOD XCPT REAGENT STRIP <td>POCT GLUCOSE, DOCKED</td><td>Routine</td><td>04/07/2021 5:23 PM EDT</td><td></td><td> </td> 04/07/2021 05:23:00 PM [facility] GLUCOSE QUANTITATIVE BLOOD XCPT REAGENT STRIP <td>POCT GLUCOSE, DOCKED</td><td>Routine</td><td>04/07/2021 12:38 PM EDT</td><td></td><td> </td> 04/07/2021 12:38:00 PM [facility] GLUCOSE QUANTITATIVE BLOOD XCPT REAGENT STRIP <td>POCT GLUCOSE, DOCKED</td><td>Routine</td><td>04/07/2021 8:26 AM EDT</td><td></td><td> </td> 04/07/2021 08:26:00 AM [facility] BLOOD COUNT COMPLETE AUTO&AUTO DIFRNTL WBC COUNT <td>C BC AND DIFFERENTIAL</td><td>Routine</td><td>04/07/2021 1:13 AM EDT</td><td></td><td> </td> 04/07/2021 01:13:00 AM [facility] BASIC METABOLIC PANEL CALCIUM TOTAL <td>BASIC METABOLI C PANEL</td><td>Routine</td><td>04/07/2021 1:13 AM EDT</td><td></td><td> </td> 04/07/2021 01:13:00 AM [facility] GLUCOSE QUANTITATIVE BLOOD XCPT REAGENT STRIP <td>POCT GLUCOSE, DOCKED</td><td>Routine</td><td>04/06/2021 10:06 PM EDT</td><td></td><td> </td> 04/06/2021 10:06:00 PM [facility] GLUCOSE QUANTITATIVE BLOOD XCPT REAGENT STRIP <td>POCT GLUCOSE, DOCKED</td><td>Routine</td><td>04/06/2021 5:17 PM EDT</td><td></td><td> </td> 04/06/2021 05:17:00 PM [facility] GLUCOSE QUANTITATIVE BLOOD XCPT REAGENT STRIP <td>POCT GLUCOSE, DOCKED</td><td>Routine</td><td>04/06/2021 1:48 PM EDT</td><td></td><td> </td> 04/06/2021 01:48:00 PM [facility] MRA NECK W/O CONTRST MATERIAL <td>MR ANGIOGRAPHY NECK WITHOUT CONTRAST [id number]</td><td>Routine</td><td>04/06/2021 1:27 PM EDT</td><td></td><td> </td> 04/06/2021 01:27:45 PM [facility] MRA HEAD W/O CONTRST MATERIAL <td>MR ANGIOGRAPHY HEAD WITHOUT CONTRAST [id number]</td><td>Routine</td><td>04/06/2021 1:27 PM EDT</td><td></td><td> </td> 04/06/2021 01:27:45 PM [facility] MRI BRAIN BRAIN STEM W/O CONTRAST MATERIAL <td>MR BRAI N WITHOUT CONTRAST [id number]</td><td>Routine</td><td>04/06/2021 1:27 PM EDT</td><td></td><td> </td> 04/06/2021 01:27:45 PM [facility] EEG ROUTINE STUDY <td>EEG ROUTINE STUDY</td><t d>Routine</td><td>04/06/2021 12:40 PM EDT</td><td></td><td> </td> 04/06/2021 12:40:19 PM [facility] URNLS DIP STICK/TABLET REAGENT AUTO MICROSCOPY <td>URI NALYSIS WITH MICROSCOPIC</td><td>STAT</td><td>04/06/2021 9:22 AM EDT</td><td></td><td> </td> 04/06/2021 09:22:00 AM [facility] BLOOD COUNT COMPLETE AUTO&AUTO DIFRNTL WBC COUNT <td>C BC AND DIFFERENTIAL</td><td>Routine</td><td>04/06/2021 8:57 AM EDT</td><td></td><td> </td> 04/06/2021 08:57:00 AM [facility] GLUCOSE QUANTITATIVE BLOOD XCPT REAGENT STRIP <td>POCT GLUCOSE, DOCKED</td><td>Routine</td><td>04/06/2021 8:44 AM EDT</td><td></td><td> </td> 04/06/2021 08:44:00 AM [facility] XR CHEST FRONTAL ONLY [id number] <td>XR CHEST FRONTAL ONLY [id number]</td><td>Urgent</td><td>04/06/2021 7:00 AM EDT</td><td></td><td> </td> 04/06/2021 07:00:[address] [facility] [address] HEAD/BRAIN W/O CONTRAST MATERIAL <td>CT HEAD WITHOU T CONTRAST [id number]</td><td>STAT</td><td>04/06/2021 6:05 AM EDT</td><td></td><td> </td> 04/06/2021 06:05:00 AM [facility] TROPONIN T HIGH SENSITIVITY <td>TROPONIN T HIGH SENSITIVITY</td><td>STAT</td><td>04/06/2021 5:38 AM EDT</td><td></td><td> </td> 04/06/2021 05:38:00 AM [facility] RESPIRATORY PATHOGEN PANEL <td>RESPIRATORY PATHOGEN PANEL</td><td>Routine</td><td>04/06/2021 5:38 AM EDT</td><td></td><td> </td> 04/06/2021 05:38:00 AM [facility] COVID-19 PCR <td>COVID-19 PCR</td><td>Rou ernie</td><td>04/06/2021 5:38 AM EDT</td><td></td><td> </td> 04/06/2021 05:38:00 AM [facility] THROMBOPLASTIN TIME PARTIAL PLASMA/WHOLE BLOOD <td>PAR TIAL THROMBOPLASTIN TIME (PTT)</td><td>Routine</td><td>04/06/2021 5:38 AM EDT</td><td></td><td> </td> 04/06/2021 05:38:00 AM [facility] PROTHROMBIN TIME <td>PROTIME INR</td><td>STAT </td><td>04/06/2021 5:38 AM EDT</td><td></td><td> </td> 04/06/2021 05:38:00 AM [facility] BLOOD COUNT COMPLETE AUTO&AUTO DIFRNTL WBC COUNT <td>C BC AND DIFFERENTIAL</td><td>Routine</td><td>04/06/2021 5:38 AM EDT</td><td></td><td> </td> 04/06/2021 05:38:00 AM [facility] THYROID STIMULATING HORMONE TSH <td>TSH</td><td>Routin e</td><td>04/06/2021 5:38 AM EDT</td><td></td><td> </td> 04/06/2021 05:38:00 AM [facility] MAGNESIUM <td>MAGNESIUM LEVEL</td><td> STAT</td><td>04/06/2021 5:38 AM EDT</td><td></td><td> </td> 04/06/2021 05:38:00 AM [facility] HEMOGLOBIN GLYCOSYLATED A1C <td>HEMOGLOBIN A1C</td><td>Routine</td><td>04/06/2021 5:38 AM EDT</td><td></td><td> </td> 04/06/2021 05:38:00 AM [facility] CREATINE KINASE TOTAL <td>CK</td><td>Routine</td>< td>04/06/2021 5:38 AM EDT</td><td></td><td> </td> 04/06/2021 05:38:00 AM [facility] LIPID PANEL <td>LIPID PANEL</td><td>Rout ine</td><td>04/06/2021 5:38 AM EDT</td><td></td><td> </td> 04/06/2021 05:38:00 AM [facility] COMPREHENSIVE METABOLIC PANEL <td>COMPREHENSIVE METABO LIC PANEL</td><td>STAT</td><td>04/06/2021 5:38 AM EDT</td><td></td><td> </td> 04/06/2021 05:38:00 AM [facility] EKG 12-LEAD - CMAXX REPORT <td>EKG 12-LEAD - CMAXX REPORT</td><td></td><td>04/06/2021 5:36 AM EDT</td><td></td><td></td> 04/06/2021 05:36:14 AM [facility] EKG 12-LEAD - CMAXX REPORT <td>EKG 12-LEAD - CMAXX REPORT</td><td></td><td>04/06/2021 5:36 AM EDT</td><td></td><td></td> 04/06/2021 05:36:14 AM [facility] EKG 12-LEAD <td>EKG 12-LEAD</td><td>STAT </td><td>04/06/2021 5:36 AM EDT</td><td></td><td> </td> 04/06/2021 05:36:14 AM [facility] EKG 12-LEAD - CMAXX REPORT <td>EKG 12-LEAD - CMAXX REPORT</td><td></td><td>04/06/2021 5:36 AM EDT</td><td></td><td></td> 04/06/2021 05:36:00 AM [facility] GLUCOSE QUANTITATIVE BLOOD XCPT REAGENT STRIP <td>POCT GLUCOSE, DOCKED</td><td>Routine</td><td>04/05/2021 6:17 PM EDT</td><td></td><td> </td> 04/05/2021 06:17:00 PM [facility] OFFICE OUTPATIENT VISIT 15 MINUTES 03/20/2021 12:00:00 AM EDT [facility] ([facility] ) OFFICE OUTPATIENT VISIT 15 MINUTES 02/04/2021 12:00:00 AM EDT [facility] ([facility] ) OFFICE OUTPATIENT VISIT 40 MINUTES 01/03/2021 12:00:00 AM EDT [facility] ([facility]) ARTHROCENTESIS ASPIR&/INJECTION MAJOR JT/BURSA 021 12:00:00 AM EDT [facility] ([facility]) OFFICE OUTPATIENT VISIT 15 MINUTES 12/24/2020 12:00:00 AM EDT [facility] ([facility]) ARTHROCENTESIS ASPIR&/INJECTION MAJOR JT/BURSA 021 12:00:00 AM EST [facility] ([facility]) OFFICE OUTPATIENT VISIT 15 MINUTES 10/24/2020 12:00:00 AM EST [facility] ([facility]) ELECTROMYOGRAPHY WITH NERVE CONDUCTION <td>ELECTROMYOG KEYANA WITH NERVE CONDUCTION</td><td>Routine</td><td>10/01/2020 9:30 AM EST</td><td> Imbalance</td><td> </td> 10/01/2020 09:30:00 AM EST [facility] Imbalance OFFICE OUTPATIENT VISIT 10 MINUTES 09/14/2020 12:00:00 AM EST [facility] ([facility]) POCT GLUCOSE, DOCKED <td>POCT GLUCOSE, DOCKED</td ><td>Routine</td><td>07/20/2020 8:33 AM EST</td><td></td><td> </td> 07/20/2020 08:33:00 AM [facility] BLOOD COUNT COMPLETE AUTO&AUTO DIFRNTL WBC COUNT <td>C BC AND DIFFERENTIAL</td><td>Routine</td><td>07/20/2020 3:42 AM EST</td><td></td><td> </td> 07/20/2020 03:42:00 AM [facility] BASIC METABOLIC PANEL CALCIUM TOTAL <td>BASIC METABOLI C PANEL</td><td>Routine</td><td>07/20/2020 3:42 AM EST</td><td></td><td> </td> 07/20/2020 03:42:00 AM [facility] GLUCOSE QUANTITATIVE BLOOD XCPT REAGENT STRIP <td>POCT GLUCOSE, DOCKED</td><td>Routine</td><td>07/19/2020 9:24 PM EST</td><td></td><td> </td> 07/19/2020 09:24:00 PM [facility] URNLS DIP STICK/TABLET REAGENT AUTO MICROSCOPY <td>URI NALYSIS WITH REFLEX URINE CULTURE</td><td>Routine</td><td>07/19/2020 5:41 PM EST</td><td></td><td> </td> 07/19/2020 05:41:00 PM [facility] GLUCOSE QUANTITATIVE BLOOD XCPT REAGENT STRIP <td>POCT GLUCOSE, DOCKED</td><td>Routine</td><td>07/19/2020 5:04 PM EST</td><td></td><td> </td> 07/19/2020 05:04:00 PM [facility] MRA NECK W/O CONTRST MATERIAL <td>MR ANGIOGRAPHY NECK WITHOUT CONTRAST [id number]</td><td>Pending Discharge</td><td>07/19/2020 3:41 PM EST</td><td></td><td> </td> 07/19/2020 03:41:00 PM [facility] MRA HEAD W/O CONTRST MATERIAL <td>MR ANGIOGRAPHY HEAD WITHOUT CONTRAST [id number]</td><td>Pending Discharge</td><td>07/19/2020 3:41 PM EST</td><td></td><td> </td> 07/19/2020 03:41:00 PM [facility] MRI BRAIN BRAIN STEM W/O CONTRAST MATERIAL <td>MR BRAI N WITHOUT CONTRAST [id number]</td><td>Routine</td><td>07/19/2020 3:41 PM EST</td><td></td><td> </td> 07/19/2020 03:41:00 PM [facility] GLUCOSE QUANTITATIVE BLOOD XCPT REAGENT STRIP <td>POCT GLUCOSE, DOCKED</td><td>Routine</td><td>07/19/2020 12:23 PM EST</td><td></td><td> </td> 07/19/2020 12:23:00 PM [facility] GLUCOSE QUANTITATIVE BLOOD XCPT REAGENT STRIP <td>POCT GLUCOSE, DOCKED</td><td>Routine</td><td>07/19/2020 9:04 AM EST</td><td></td><td> </td> 07/19/2020 09:04:00 AM [facility] ECHOCARDIOGRAM LIMITED WITH BUBBLE STUDY <td>ECHOCARDI OGRAM LIMITED WITH BUBBLE STUDY</td><td>Routine</td><td>07/19/2020 8:18 AM EST</td><td></td><td> </td> 07/19/2020 08:18:30 AM [facility] PLATELET AGGREGATION IN VITRO EACH AGENT <td>VERIFYNOW ASPIRIN</td><td>Routine</td><td>07/19/2020 6:48 AM EST</td><td></td><td> </td> 07/19/2020 06:48:00 AM [facility] GLUCOSE QUANTITATIVE BLOOD XCPT REAGENT STRIP <td>POCT GLUCOSE, DOCKED</td><td>Routine</td><td>07/19/2020 6:15 AM EST</td><td></td><td> </td> 07/19/2020 06:15:00 AM [facility] RESPIRATORY PATHOGEN PANEL <td>RESPIRATORY PATHOGEN PANEL</td><td>Routine</td><td>07/19/2020 4:10 AM EST</td><td></td><td> </td> 07/19/2020 04:10:00 AM [facility] COVID-19 PCR <td>COVID-19 PCR</td><td>Rou ernie</td><td>07/19/2020 4:10 AM EST</td><td></td><td> </td> 07/19/2020 04:10:00 AM [facility] GLUCOSE QUANTITATIVE BLOOD XCPT REAGENT STRIP <td>POCT GLUCOSE, DOCKED</td><td>Routine</td><td>07/19/2020 3:42 AM EST</td><td></td><td> </td> 07/19/2020 03:42:[address] [facility] CT HEAD/BRAIN W/O CONTRAST MATERIAL <td>CT HEAD WITHOU T CONTRAST [id number]</td><td>Routine</td><td>07/19/2020 3:13 AM EST</td><td></td><td> </td> 07/19/2020 03:13:39 AM [facility] BLOOD COUNT COMPLETE AUTO&AUTO DIFRNTL WBC COUNT <td>C BC AND DIFFERENTIAL</td><td>Routine</td><td>07/19/2020 2:24 AM EST</td><td></td><td> </td> 07/19/2020 02:24:00 AM [facility] THYROID STIMULATING HORMONE TSH <td>TSH</td><td>Routin e</td><td>07/19/2020 2:24 AM EST</td><td></td><td> </td> 07/19/2020 02:24:00 AM [facility] HEMOGLOBIN GLYCOSYLATED A1C <td>HEMOGLOBIN A1C</td><td>Routine</td><td>07/19/2020 2:24 AM EST</td><td></td><td> </td> 07/19/2020 02:24:00 AM [facility] LIPID PANEL <td>LIPID PANEL</td><td>Rout ine</td><td>07/19/2020 2:24 AM EST</td><td></td><td> </td> 07/19/2020 02:24:00 AM [facility] COMPREHENSIVE METABOLIC PANEL <td>COMPREHENSIVE METABO LIC PANEL</td><td>Routine</td><td>07/19/2020 2:24 AM EST</td><td></td><td> </td> 07/19/2020 02:24:00 AM [facility] GLUCOSE QUANTITATIVE BLOOD XCPT REAGENT STRIP <td>POCT GLUCOSE, DOCKED</td><td>Routine</td><td>07/19/2020 1:46 AM EST</td><td></td><td> </td> 07/19/2020 01:46:00 AM EST [facility] IRON <td>TOTAL FE BINDING CAPACIT Y</td><td>Routine</td><td>07/11/2020 12:40 PM EST</td><td> Leukocytosis, unspecified type</td><td> </td> 07/11/2020 12:40:00 PM EST Leukocytosis, unspecified type [facility] ital Leukocytosis, unspecified type BLOOD COUNT COMPLETE AUTO&AUTO DIFRNTL WBC COUNT <td>C BC AND DIFFERENTIAL</td><td>STAT</td><td>07/11/2020 12:40 PM EST</td><td> Leukocytosis, unspecified type</td><td> </td> 07/11/2020 12:40:00 PM EST Leukocytosis, unspecified type [facility] ital Leukocytosis, unspecified type FOLIC ACID SERUM <td>FOLATE</td><td>Routine</ td><td>07/11/2020 12:40 PM EST</td><td> Leukocytosis, unspecified type</td><td> </td> 07/11/2020 12:40:00 PM EST Leukocytosis, unspecified type [facility] ital Leukocytosis, unspecified type FERRITIN <td>FERRITIN LEVEL</td><td>R outine</td><td>07/11/2020 12:40 PM EST</td><td> Leukocytosis, unspecified type</td><td> </td> 07/11/2020 12:40:00 PM EST Leukocytosis, unspecified type [facility] ital Leukocytosis, unspecified type CYANOCOBALAMIN VITAMIN B-12 <td>VITAMIN B12</td><td>Ro utine</td><td>07/11/2020 12:40 PM EST</td><td> Leukocytosis, unspecified type</td><td> </td> 07/11/2020 12:40:00 PM EST Leukocytosis, unspecified type [facility] ital Leukocytosis, unspecified type COMPREHENSIVE METABOLIC PANEL <td>COMPREHENSIVE METABO LIC PANEL</td><td>STAT</td><td>07/11/2020 12:40 PM EST</td><td> Leukocytosis, unspecified type</td><td> </td> 07/11/2020 12:40:00 PM EST Leukocytosis, unspecified type [facility] ital Leukocytosis, unspecified type Immunization: Flublok Quadrivalent (18 years & older) 0.5mL IM (Influenza) 06/18/2020 12:00:00 AM EDT eC1 ([facility]) Results ID Date Data Source [id number] 06/27/2021 01:17:14 PM EDT [facility] Name Value Range Interpretation Code Description Data Evelyn rce(s) Supporting Document(s) Progress Note [facility] BLSQKi7eTkZQSjMk61/NMDuuJEEvd0YgHMckQGx7ZBhbNILnA2MsTNK5eD5hCEG9DYzTImUbWeYdAPD1 lbm [file] AgICAgICAgICAgICAgICAgICAgICAgICAgICAgICAg ICAgICAgICAgICAgICAgICAgICAgICAgICAgICAgICAgICANCiAgICAgICAgICAgICAgICAgICAgICAg ICAgICAgICAgICAgICAgICAgICAgICAgICAgICAgICAgICAgICAgICAgICAgICAgICAgICAgICAgICAg ICAgICAgICAgICAgICAgICANCiAgICAgICAgICAgIC AgICAgICAgICAgICAgICAgICAgICAgICAgICAgICAgICAgICAgICAgICAgICAgICAgICAgICAgICAgIC AgICAgICAgICAgICAgICAgICAgICAgICAgICANCiAgICAgICAgICAgICAgICAgICAgICAgICAgICAgIC AgICAgICAgICAgICAgICAgICAgICAgICAgICAgICAg ICAgICAgICAgICAgICAgICAgICAgICAgICAgICAgICAgICAgICANCiAgICAgICAgICAgICAgICAgICAg ICAgICAgICAgICAgICAgICAgICAgICAgICAgICAgICAgICAgICAgICAgICAgICAgICAgICAgICAgICAg ICAgICAgICAgICAgICAgICAgICANCiAgICAgICAgIC AgICAgICAgICAgICAgICAgICAgICAgICAgICAgICAgICAgICAgICAgICAgICAgICAgICAgICAgICAgIC AgICAgICAgICAgICAgICAgICAgICAgICAgICAgICANCiAgICAgICAgICAgICAgICAgICAgICAgICAgIC AgICAgICAgICAgICAgICAgICAgICAgICAgICAgICAg ICAgICAgICAgICAgICAgICAgICAgICAgICAgICAgICAgICAgICAgICANCiAgICAgICAgICAgICAgICAg ICAgICAgICAgICAgICAgICAgICAgICAgICAgICAgICAgICAgICAgICAgICAgICAgICAgICAgICAgICAg ICAgICAgICAgICAgICAgICAgICAgICANCiAgICAgIC AgICAgICAgICAgICAgICAgICAgICAgICAgICAgICAgICAgICAgICAgICAgICAgICAgICAgICAgICAgIC AgICAgICAgICAgICAgICAgICAgICAgICAgICAgICAgICANCiAgICAgICAgICAgICAgICAgICAgICAgIC AgICAgICAgICAgICAgICAgICAgICAgICAgICAgICAg ICAgICAgICAgICAgICAgICAgICAgICAgICAgICAgICAgICAgICAgICAgICANCjw/eABtS5fzwVGbzeO8 G6yyIz0NMy1SDJ2qm4DmGSUcXPnoerFdLddDIyYdBZNfQipRDgj0VOtdSY1UtIRzI0WdX7SiNJhlGM8B BIZqYVYijQFxGEBiDXYnYtC4ISUeXSmfQZ1OvOKoPD cbKPDoSARuTdOdCQQxLQ4YTYNcE959ubGfRa2GVy8EEnUmHY7dti0CElHqADIkNbbDPtn8NSvwKY9LlG SxjXXlKqTjPWSBPtRlI2xsu2IrWhPtOVBHGNngHF9Ac0PuaCCqSHt+Bv3ZWH4qc8JmKVunAcZtMJ7rfx 9JPYyAPhBmD8XzkCxkUDZec0khUDXtUC1pzDZeAJP9 PPThl0XlgYDvSp1nLJHxJZAWLUKdeOLzPG7jVV7yWFDwERVyEyQaWPBANC1UBHZwBCJwxJDpQZCrPGUH EG0BBSgaMZG1DUEjfsOgyHOiAPcwYY4AEEKbllEhNaVyKCNBAAh+Np2ZBM4st0CeROnlPwLdMO0iut4N KZwTCzXgU8F7vFObP3T4UYlsLu1FKWZfRLXxTSjgLF KGGScjDG7RUG5jxsP7RL0PtEXgFBVpWNJjgUKeFHa0U06lzXTvBYytUY4ADKW+Lobo+Zf7MYDZfCWDgKC KkSbVbEKFAUlJjD8DkR3VWw2SnJ8TpJF12mXvpfyTjAFxdSH3YIT3lPXUkNDACJO4XfRBhiW8dxrSgHT WkCKJPMqSqO46zaXTuKSLgCXImUFLvNc4KZOWzJ0Uo hgEmpOpousLdNKLwURWQVC1CGDqkduVfrELmaPryNM05oPveLE7APr3QCaWcMP1uwa9NmPExQf9MAEQy GI8SJUMlZQXiIHQiIFT5RAQfHdKdUZuvQLQmRRZmTFN0KBTjGVVmRP8AGgXhUBZfZqK2NCLrUCUrOHDs pm4ECLYqGEJnLdZrOMWpVCTtTSVeKQyoCVDrHBWrYU A5DEYoFOFnEA7CPtKpMAMiBTReOfzsMZKvENOres9AMMPzXGZnXtP1VWClAEClNVEmJLcbLEYlZIN0Mp P8ONRsJPIeOB9DJrFuKVEkVYU0NThxPTAmJMCdyg9LHQEhNWFeHio8CzOlRLXtFCVgBPelOBZyTKF9WZ hyMGIfVJRlAF1HLaFbHNVhPWwrJQWrMOCoHXNgzw4X ORTnZGSpJGKxOnJdHTUmZTMzOJgjAMLtMMH7WyG2COVjKHBpKM3RJcGrNJIfILg7VJYbTWGbFLJmtx6Y MEXwPVUbRIl9LZCxMUUbPCKvTPcqMCNuQSIeJFk1YPFvDGShWY0SBbJaUKRnVeXyVALyOMOhFWCbom0Z UQAaPZArXFKuObWcTIZpBGUvYStdHMObEYGwYfA2SQ GuLGAjKH8RWuBuBYYtMcFnHcXqULBoQQNgwh3VUACyERJkWeCkSEYkNDRnNONhJHvfOGWxAIHgQrh6KS OaFGAoHX2QAhZmAVCkRhQ1TnJyKGIdXVMxlx6OtNOvsBpmxt4LIZvZBv3BpHqyZJC0SOpjVj9ovGTdSe CbBFUPJe5QmyCzIAUeBWEMDUcrVIJwRYg8XRP5YxI5 UYP0XnA8U1CbTvsvP2S0LiMrUaO2XOAjEgA8DaNyLSqgKPCzSWYrLZW1ALVeSYKhWohkOzSgPXRpSEP+ BW3vTSf+Tk5Qh7VjbiH0iaVbNDipXiB8RM6QMMLXK7ESUg== ID Date Data Source [id number] 06/27/2021 01:14:04 PM EDT [facility] Name Value Range Interpretation Code Description Data Evelyn rce(s) Supporting Document(s) Progress Note [facility] NFDMGu1dLdVFWcTd29/YJLdmZMRoj6YtGXxbGMf2YClnGBLmI2TaXSS6yG1wXFH8QUxRZrDpHoEmYYA5 lbm [file] [employer] WORKER+Eu9WDUPsORx5D1G5CKBvUOd8Q1QCD7ZYWJDvSD hhEUrqYYJbDCp2G8F9SYMmK4FZP1Qbebhvfx3+MM5KZ13HVRSnEMn4M9S0bHXgX7I1jNiRsMJ0NA9DUA 2RfIe2kCUmyC4+JU0ZH2NJNuDhGNz0D5X9kSBeA9W4gEtPyAF9JF3NRJ0AwJUxROLvmgIvIi2oH9KTWJ zLLpPOUND9VT4GaMYtNS8UhAKHQ7OwyWXmJz7eMIon sEPorQ0fFz0lBCucSV6VFuKEZIfYUDD4WE5GbUKgCH0AlGQIJ3OdcRKdJa5fVOwizBHvvx2+XK0YESHp Jm7DQd5+BEhffgRrHaaRVsTrJFBrx0MpRNt0NK0KFC9qkKlcMIM1Vh4UpZY3hNMpH6bJBJ9FrECnJ83o aLUtQZImGz8YBsB0ayRrwJ6EOO68cKAmk0F6YPJdN7 lhYRkxt91pNVnjUWlJHG2nXVYNXEboKUljLCA8HcBncjntWMDtAd4GEuSjLGo8mQ1jlAT1ATC9OqjdiH GjMUlbAeErHeRbPpN1eJmrbdz6OOerSS8zVJbbdpjvAHBqJqo+ZDrfYWBiATOxSfuSXZAsqX4zdeE6tv BwLUpwgMJtNk2xt6q7NyayJk1bYs9dTNx0NuVnAzIz NCRhTy1sfO63PMjizhVqQa5TAtXeIAG9N6WtCzdCUDB+YBvvGYsrwGo5ePDhYNZtLk5JMWYjKABbVZDb ICAgICAgICAgICAgICAgICAgICAgICAgICAgICAgICAgICAgICAgICAgICAgICAgICAgICAgICAgICAg ICAgICAgICAgICAgICAgICAgICAgICAgICAgICAgIA 0KICAgICAgICAgICAgICAgICAgICAgICAgICAgICAgICAgICAgICAgICAgICAgICAgICAgICAgICAgIC UtVECgGINlPBHnJAIkJWNiSLJgWAVrROTmZYHbTFCcGLDdYKEvPKPyFB3ZMRHwOFSaODBnGJXbZTQvNY AgICAgICAgICAgICAgICAgICAgICAgICAgICAgICAg DNIzCNZxNFLwIDUsHVPoLIPsNJPvFSMqNMQkVFKvLEJxBOEeVOBuUQIhPDFiRKObQTCjKX6ZOXGtGFVw ICAgICAgICAgICAgICAgICAgICAgICAgICAgICAgICAgICAgICAgICAgICAgICAgICAgICAgICAgICAg ICAgICAgICAgICAgICAgICAgICAgICAgICAgICAgIC WnGI6GEFFtINNgOTVlPJUyTPQuGHMlWMQwLVSnDAVdSXLhXJZgGTCzZQXfMIWbDCIeQHDqBKMvFTFgON FpCJLtVSDvGVUbCHHnSHNqZAGkEMHrWQLhSKAqKPIsVGBnGWTcWQTbDEIjCT0BEAEuVZHbSBEbQAJmNE AgICAgICAgICAgICAgICAgICAgICAgICAgICAgICAg EBGoFCHgBSYmZLCbBLJmIDBnEWTaQCAfTFOuFAVwOFOaWLWmBXYuVTMpXAWlYVAaGXZyXVHmXX6TNAUq ICAgICAgICAgICAgICAgICAgICAgICAgICAgICAgICAgICAgICAgICAgICAgICAgICAgICAgICAgICAg ICAgICAgICAgICAgICAgICAgICAgICAgICAgICAgIC ClINXbMT5CVMIpHPRbVQJhVXUcAAEdZGQxOCZrQSQzKPArTXLyKMEdVYLmOPZwUBLrPQEoLBLlOBRqYN NpHVXtOGSgFLYhFGDyHRJsAHAhJTEbEGUjZKXhZJMyUZGjQRJyKHKpFYFnFPAeIZ9XEXLwGPTgPYFzUO AgICAgICAgICAgICAgICAgICAgICAgICAgICAgICAg TBHgFAZxTMMjIELbXEGmJAJoAUXbHKPaSDZaHPApUFXdIYKdKBPyLSXiVMJkYRAiCXZuMGBkLYLmIK2L ICAgICAgICAgICAgICAgICAgICAgICAgICAgICAgICAgICAgICAgICAgICAgICAgICAgICAgICAgICAg ICAgICAgICAgICAgICAgICAgICAgICAgICAgICAgIC LeTEWrWKRgDJ3YIA33tXDch2S8VMFbOZ6zamu/Pj2FANcxkyDzlQJpXS9MMbWfUL8jtx3XGtOlPA3qes 8PHFiUJpIqL8L8zHNfHEUoVITOAsHvF71lAEmxFt47PJvzDYMwUkWsAZa0Jo2PGcOzL1myFSHeSjN3JC DnIsC1CFCfFzLpFGxaAP5Tn8MolUGtTBd+Yi0HZT3a u2JqEArtTDEuLB8cbr9QZXsEJmLrE2OyhdI4ACYuWZUjJc6PGKAqZVHfgOPkAiXlFHFXUuMpV0PhrP25 IDENCj4+UYgaefXoKojQOlMgZTFuw7UvTSq8GV0NSHNxYJr2dHCuAMUmS8Sid2RvSb80QHHqBstoMu8n JI6bQZPHt0EmqUvkWL4DRJZ2DGNnByT1BpNtGwBqKY H1RtHjTY2xBEyyAT7LRKN6TYisKFHvKBZjR3sGGpMiJHMuCTVjeKbaZP5ZZiUpG7XkbmBkhJWvIIZqVM INCj4+NKzimaQkNwpIBzNtDSWvw4KePWy6ZT0UOARzMEenTR2NLWFipM3eQBusYD1FVoGnCEJcLZGAVe QpC22ogQJcQTu6F5AiTpJoAIFfRmcrLJAiPWxpIzNz ZXMgWyBdDQogID4+ID4+KEnsXT9HDSjkzrNuYQOgCr6NRDSrMFWzQC2lDIElJFThA6M7wRuhLCKCZjPn R3cgazlyUW7kBTViG556sVejizQwGNJiOLKfLk7MBRSaQBO2YMFszJZjStAcFXVENEduDY0EcQLiNQR6 sH6fFUncAPZiNYEcS6mMSqXplXpmRT50lDldzhHsmJ BdDQo+Wr6QZB7hg8RdQLj4abLfKZfoHUP5MHcoFZOeRLDgJOWoHAW0KAU7FQNXIyGyYBLuKQWbRXrnTR NbMXOmtc5DJADuDZKeMSNxNuJgAHUwJGAcVLrjHHBhXPFtPcYoGLSpHMOeUL6MRuBqHKRiBMYoQXcmJO PkXXLdtn0WJBAsGFGiKnP3EtHsVCTcUKIeSWphRILy XYRlQXv7KXVgIHUlWZ7WCfWmAGLpJPEaEdZtJZHkWBQyyi8ZDHVxTOQoXjQ5LDThKRAnARTsSVhjTSFc BLQ5QWo6HEGjADWpNC2TAvJoSMIfJKs6XJOaFIEqFYLckw0DROXwHFZqAbs5ZsQjHDOgDVTyGBunGNMy EBJ8SFW7WGFhVISjKI8JLwPjZFPjKMcrCnduBQLtML Pvzo0ADYPzSLAgWAMnOETwHJStYBGpXUlkJZVlEJJoEGkfDZZrNKEsMW9EFoYgQMYwHbL3DWDnBXHlOV Teuk0XLWGxNUIqBGLpNETcZREiGWWzFMsgEEVgNHKrAuL7YRQcMEHnEH3FZlCrGMDuLrK0UNRsVQKmRQ Eent0NLBDhNTQoOMb3GcDcJKVbTBUhYMuiZXIrNDVn RiR5NJExODObFJ8YDtKyBLQnKsY4MIhqRTYfRTKzzw3CBUDhRLCnSiL2XoHaXURySJBpWAp5vhOcfCZv WAj2PX9JH8GrxlWwSyYOXv9Na062MKVzILSnIr8TF0evKb1oVXJjTTZILh9STFh9XGTuZeylNxNpDIJ9 Q3RcRzU3T3WdP1K7CAOoAxN6VhX+JOc6BuFqMML1Ww M2FTjkOgTxLgsiKbJeLUJ2X5M5JBxpWZ3uKQFPJx7+MPwmkNLamQytPYTSYfKsLENrYPuwMPZDXo3N ID Date Data Source [id number] 06/27/2021 01:10:07 PM EDT [facility] Name Value Range Interpretation Code Description Data Evelyn rce(s) Supporting Document(s) Progress Note [facility] DOHKEm7rVpWURxBq05/VYQjcQCNbg5KrASayXUv6ZWyqPCBfZ7GnJRU6rL9tLKZ0XKqPWcOzBeGzDHD9 lbm [file] vhQWSUVg5Y ID Date Data Source [id number] 06/24/2021 11:08:17 AM EDT [facility] Name Value Range Interpretation Code Description Data Evelyn rce(s) Supporting Document(s) Progress Note [facility] KNQLKu3wWkCJSuFy36/KCUoeQOEaw0WiJZxsUWa0YFvsUGCkW8McZYY7eD3eDVH4RAbDNjTjPlWnGMP5 lbm [file] ID Date Data Source [id number] 06/24/2021 11:08:00 AM EDT [facility] Name Value Range Interpretation Code Description Data Evelyn rce(s) Supporting Document(s) SARS-CoV-2 RNA 2019 nCoV Real-[facility] RT[facility]: [facility] was ordered by [facility] and reported by [facility]. 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 [facility] Patient has symptoms related to [facility] When did you start to experience these symptoms [Date and time] [Phen X] [facility] Patient was hospitalized because of this condition [facility] patient was admitted to ICU for condition [facility] Patient resides in a congregate care setting [facility] status [facility] ID Date Data Source [id number] 06/24/2021 09:29:52 AM EDT [facility] Name Value Range Interpretation Code Description Data Evelyn rce(s) Supporting Document(s) Progress Note [facility] FDPARf3lJvBQKgOv33/RNOjqQAMuy4HiAKbuYFj1EPpbDKExZ4OnQEY6iG9yAXO2KTgYMkKxTdZtTHZ0 lbm [file] AgICAgICAgICAgICAgICAgICAgICAgICAgICAgICAgICAgICAgICAgICAgICAgICAgICAgICAgICAgIC AgICAgICAgICAgICAgICAgICAgICAgICAgICAgICANCiAgICAgICAgICAgICAgICAgICAgICAgICAgIC AgICAgICAgICAgICAgICAgICAgICAgICAgICAgICAg ICAgICAgICAgICAgICAgICAgICAgICAgICAgICAgICAgICAgICAgICANCiAgICAgICAgICAgICAgICAg ICAgICAgICAgICAgICAgICAgICAgICAgICAgICAgICAgICAgICAgICAgICAgICAgICAgICAgICAgICAg ICAgICAgICAgICAgICAgICAgICAgICANCiAgICAgIC AgICAgICAgICAgICAgICAgICAgICAgICAgICAgICAgICAgICAgICAgICAgICAgICAgICAgICAgICAgIC AgICAgICAgICAgICAgICAgICAgICAgICAgICAgICAgICANCiAgICAgICAgICAgICAgICAgICAgICAgIC AgICAgICAgICAgICAgICAgICAgICAgICAgICAgICAg ICAgICAgICAgICAgICAgICAgICAgICAgICAgICAgICAgICAgICAgICAgICANCiAgICAgICAgICAgICAg ICAgICAgICAgICAgICAgICAgICAgICAgICAgICAgICAgICAgICAgICAgICAgICAgICAgICAgICAgICAg ICAgICAgICAgICAgICAgICAgICAgICAgICANCiAgIC AgICAgICAgICAgICAgICAgICAgICAgICAgICAgICAgICAgICAgICAgICAgICAgICAgICAgICAgICAgIC AgICAgICAgICAgICAgICAgICAgICAgICAgICAgICAgICAgICANCiAgICAgICAgICAgICAgICAgICAgIC AgICAgICAgICAgICAgICAgICAgICAgICAgICAgICAg ICAgICAgICAgICAgICAgICAgICAgICAgICAgICAgICAgICAgICAgICAgICAgICANCiAgICAgICAgICAg ICAgICAgICAgICAgICAgICAgICAgICAgICAgICAgICAgICAgICAgICAgICAgICAgICAgICAgICAgICAg ICAgICAgICAgICAgICAgICAgICAgICAgICAgICANCi AgICAgICAgICAgICAgICAgICAgICAgICAgICAgICAgICAgICAgICAgICAgICAgICAgICAgICAgICAgIC AgICAgICAgICAgICAgICAgICAgICAgICAgICAgICAgICAgICAgICANCjw/dJFtZ9onhVBabeE3N2ocUr 8ADf4KNC2rf2HeLACiLCdghpQvDyqCQvGuLGSzZapY Lbm7HHafNP0SaSQbM3BkC3ItRGloFK3ORQXbWURbkSHtTJRlYBQxDhR4BXJpYEaqIG7XbJXgPRpkDCNl NJOqBtVmVZPyYR4YBYKiT876yeIeOh8IRw2UDhFbSS0edl3RArImOBOuRceQWnb6CRssIH4DmPWdgSDf RkXfJLLHRmZxA8szs1GvNwZoOEGGKCvmVB6Lr6QjdC AxDQo+Dc5HMV4eh6WtPEttOnNiLM4tyz4QWCaBQdOwM9NreSnjECOpw5mzWJTbAY9ywTAjQHB6FCU7LG YnUO8jIKESZUrjs2B2ychuFI3HAoAvnKKoLF4bPM2uSDZzBCTpYzL2CEFGLB6JNRBiXAAztLFqYMJnRS GJNA1DTGhcURC4FXEnglFzhVEnGOjcRO8XLPIodeDs MjEgMCBSDQo+Rz3GKI6kw4GtFBofZnXlHK6nxj9DVFuEBeKrE7F5iSYhZ6M6LFaeDz5CDLMnSXWqAHvp RIVXRCebMS4JAX6ukuE9LV6ItDRvXQEqTYXzjELyHGz3E46siLWiENhvGL1XCUG+Lobo+Zi5BPKYcWOBt QDLzWcZaAZWIOmCpB0BuX3PHq5WpW0ExHB56kZbpkc JyRAetKE3MOB9kGIWzWYWLLQ3WuTLvcK4udrVvVGGhXIBVIyUvN34dbPMyMMVaAALfDXOiAo8FQNYfL4 ZcfxVszIdahkNvZUGqUYMMJL9HQWpeosEawGBvuVdhCZ65mCbrBB6FTl0PWwOcGQ9hol1YqOUpSd0AXU QhKH7KZRYwFVXoAMNxCWT6YQShHjEjSLulYGWlAHBb RYX5BTBlWCKvTL3NRvJhDPRtYdKePANyUTXrGBSiyz2NPBYxNIZuMgszSZAmFLHkGDNeDDpbVPGjBCPc MNN9MUYdIRXwGV0KLnRkFGCrNYGfOUujWGIbCBPlgz0ZYKTiDGRkFTD8XcLeMRAcQOMhZUhuEPPmACP1 CVWtRJVkLFSpRF8MUmRcFNCpUHvoSqwnKXSdIPUvwp 7VHDVaWZLlPYY7LpYxUJJzASApIQwvTHJaJZK8PqarMSSfKZYkKI5ZVvLfIKOkYVr3ThJnWOBsLLDoma 5BYWEpQWIsGAQlBbZsZMMbKDDdIMigNQOxQYE6OoT6QXStZPRcVH5TPiHdERIwKMz5WpAfPGSkARFvfw 8IDXLzTAOoESF8DgCqMVMhUZPwJShpQTGrORUzUYmx KYLfRLGuRS0SFgEjEVKbHtS4TCPiGLQmDBTqbn4QHIOmUBYrKwR4DmQrGYKxJKGaEYssHFHuLIIvBNd4 TSCuAAPvAA4QUjCyWILzDrG5GYvxHGTyVUGvxr9LWOQeXIVeGKDhPjHgWZWtACXbZEgwWUEuSAA9ZLR0 OCBlDPWnBN9LQuOpLZFyTfAvPjBoVDZbPAWuso7BjD WzePpjmm3UCUcGOu9SkWynFAJ2KReiXt3oxFTaEiNxFDSFNf4JotUgSNExNKGZLFzfMRHlLYZuSsL1FJ R1WGP8NTYkJKUbT2B5O8X4H0D7YZY3MBN9ZlZ3YDYcATMpBYm5ZLzoA4Q4INGuOXp7YRvpJBHwRHJyPZ Q+RJ8xUDj+Oe4Ra4RtnoT7ixAnSVfxKKBgNL8SWVMST0AHMr== ID Date Data Source [id number] 06/20/2021 08:36:38 PM EDT [facility] Name Value Range Interpretation Code Description Data Evelyn rce(s) Supporting Document(s) Progress Note [facility] YTXNQt4hTcZHPwWx27/RDBtuLTPam4MnKWkwOJt7TZmoKOMcR4GfXBA6fX8rHPC5AMfXKwQdBkLbTKBa lbm [file] AgICAgICAgICAgICAgICAgICAgICAgICAgICAgICAgICAgICAgICAgICAgICAgICAgICAgICAgICAgIC AgICAgICAgICAgICAgICAgICAgICAgICAgICANCiAgICAgICAgICAgICAgICAgICAgICAgICAgICAgIC AgICAgICAgICAgICAgICAgICAgICAgICAgICAgICAg ICAgICAgICAgICAgICAgICAgICAgICAgICAgICAgICAgICAgICANCiAgICAgICAgICAgICAgICAgICAg ICAgICAgICAgICAgICAgICAgICAgICAgICAgICAgICAgICAgICAgICAgICAgICAgICAgICAgICAgICAg ICAgICAgICAgICAgICAgICAgICANCiAgICAgICAgIC AgICAgICAgICAgICAgICAgICAgICAgICAgICAgICAgICAgICAgICAgICAgICAgICAgICAgICAgICAgIC AgICAgICAgICAgICAgICAgICAgICAgICAgICAgICANCiAgICAgICAgICAgICAgICAgICAgICAgICAgIC AgICAgICAgICAgICAgICAgICAgICAgICAgICAgICAg ICAgICAgICAgICAgICAgICAgICAgICAgICAgICAgICAgICAgICAgICANCiAgICAgICAgICAgICAgICAg ICAgICAgICAgICAgICAgICAgICAgICAgICAgICAgICAgICAgICAgICAgICAgICAgICAgICAgICAgICAg ICAgICAgICAgICAgICAgICAgICAgICANCiAgICAgIC AgICAgICAgICAgICAgICAgICAgICAgICAgICAgICAgICAgICAgICAgICAgICAgICAgICAgICAgICAgIC AgICAgICAgICAgICAgICAgICAgICAgICAgICAgICAgICANCiAgICAgICAgICAgICAgICAgICAgICAgIC AgICAgICAgICAgICAgICAgICAgICAgICAgICAgICAg ICAgICAgICAgICAgICAgICAgICAgICAgICAgICAgICAgICAgICAgICAgICANCiAgICAgICAgICAgICAg ICAgICAgICAgICAgICAgICAgICAgICAgICAgICAgICAgICAgICAgICAgICAgICAgICAgICAgICAgICAg ICAgICAgICAgICAgICAgICAgICAgICAgICANCiAgIC AgICAgICAgICAgICAgICAgICAgICAgICAgICAgICAgICAgICAgICAgICAgICAgICAgICAgICAgICAgIC AgICAgICAgICAgICAgICAgICAgICAgICAgICAgICAgICAgICANCjw/uRMhC4xhwQFdodJ4K1tySh3JSc 8DFD4sf0GvQCMfWOjafcKgAcdDQvGjULMoVdxGOhi7 IEfdFF8XkBXiB8HaU0DyVYpyVJ5LJXYrFKHbhIZlTSXoCOSwZwX3WFLiKUwvUI8QnPCnAKfwNYYgRSXe NqUuKOMzKRCyTHMeNLReJJPARNTrINHeWkQpPXHoOOGcBKvrEPSWPW7UFlUpJ2BexN56QPcPRp1+DQpl xwXgJakMDgT1BYHdf3DjQLd9ZH5INAEqRmlwk2SwQo ghCQDHCBlaVL6UWMW3JTI0PNLzEs9LMKFmB387lvQePG7UBk9OVlLbOT5sem6RXoxbWDMzXomNNjq3LW tbLA5PhJHoHXwSks7anqAzndVUk0UovuLdlLJQBI5eyHXQDJ8prPEeEZFFDSJnmWVnKG3eRH5vESThNE ZfTiJoVCBHRB0EHTHnCLPnmWYpQQWjXOGCLB6QXWsd KDN0HGRuudEymLZnOTyoSN9ZMDMmaiOoXgTeVTJGAWp+Zb7WOX5qw5HuLUgvLZSpBP2owu5AMLsVNeKo E6U5pWTrV4O6EUyhAq1KAGDdSSSsCuUdKBTUQLbyWV5RGL9onoF5LH1CoBMeKMTqMRVtqKQwXKi3K99w iOLeGFwgHM7JUWI+Lobo+Dh6DPTZdMSRgDPOtLsCgUD ZPUpGzI5WjK1ZYq3PwV7ImLR31eTlpkwLnZIhlQX9BHQ9jBCLfJQUMCQ4MtZAauG1atmKjRfOaAJJYOb KqJ97fiYJzIYMfAZG3ATTyCc7LMAJwU1RddwHznThcemWeXLSjFPYVRF7TBHnqbyBbuYMqaRxiUO17pP tlEM2AOf9IKiToCD8uew6ZcWZlNc0OLGAwEI1EJNZx MSQsZZRqQEV8MCSdHzKxSYhrEHGgRJHkZFP6HFRjOGZwJI9ESiAxJOEqFprbBkutVNZtGNHhkp7XGGRp VHV6ZDn4LQRwVUSnBYIkBKnqFLGjVUApOGM9DFYfFXQeEE9FJpBoHDLpDBG7RUklMECoLLZxyx3ZHPVz ENWcQSs9HUDvBNTvKQTgPNtdLRUtVUR9THL5DDNsII EjST8YXaWbKTGcZUl6OuJrEDZnPMPrem7VFOBuTTIxDET1ZcOvFJKySYTmOGkuCCIiZZFlCmHyBXZwHI RsFT1WWtXnQMAsRGE3GIZrQHXkMAAvpj2AGGZxGPBlUJPhDPNxBCZuMBUhQCpeYXRpPVS6TYCdZYVqOL KqDY9BOmMbHVSoXAp7XkkrYVHhCOPlow3JWYIgJIKn UEK3SMDdJQSlSJBmOOkwFWFiORLgIYQsVJZbRIPkMW2ONuLoIOIfGeN0VufjGPOoHZSaii8ITZWbBHAz XmX3MLMnDDVaHZXhSYmsACXaEPZnVSN4OALmWZHjWB9TQxWvRRHbEuTlWGUmNFJlUDOtrn1ZKXYqDDNn ZeUyJPTsAZPeZKLcPBpoDOBnIMM5EXjdRVVuEXPlAR 9MKgYfOQHtEqK4SAPtSUDxIOEfuc0TRHJqSQKdJKi4QiTpTRKzVQNuRXeyURLtPBB3IzQoHFKlAGXfSD 0JZaYrAUPtJzY8KodyMBTpDNMfxb7MULGuCCKdGyziIgNaTVLwOFQhACzuXAMiOVF7BLq2DOBzLOXxWK 4FVdWmGZTsPkgqEnBlBPBoBWBcvt4GBLVtNYQeAMT4 RbEjVFCyECBwVYsyQULaUTJ4PjX9JFTnNZDuKO4FPdLsPYStTsn6DEHwZIUzHIGlzu7IVFSoAMEnJPz5 XiBdKOPxGZZcOSqsRELnMAQ4YOC3AAHyECQcLP4RFqDrCDUyUkb4PGOqWVMdQBNidm0UWKDbZLI1ZBOx AkMqXYUeFFAnLFevUGYzYFOvDLYmDGIeFHQgXV8ZEl LeQLZzNPWyFDQdILXoDWCqaj2IaLNenLmzeb1IGUjTUg6TfXjyEKZ9TAemYk5lhNAwDMGgEQXVSa6Lfo GlHWKeGNKXWUmtHOLbNEn1JVHmGZWfCtN8GoM0WFE6RQFpYOyhJ2G2X5X9MZWqGuF6FYznDuKlZsJ0Tl B3EMh5IEqbUZZ3O2YhEvdcFdZwOrV+QB5uLSt+So3Xb4ZkozG8xiIfITs8ZTP1Ue4QIYZHW1AVQr== ID Date Data Source HCG SERUM QUALITATIVE 06/18/2021 12:00:00 AM EDT eCW1 ([facility]) Name Value Range Interpretation Code Description Data Evelyn rce(s) Supporting Document(s) NEGATIVE NEGATIVE HCG, SERUM QUALITATIVE eC W1 ([facility]) ID Date Data Source [id number] 06/10/2021 03:43:00 PM EDT [facility] ([facility]) Name Value Range Interpretation Code Description Data Evelyn rce(s) Supporting Document(s) Glucose [Mass/volume] in Serum or Plasma 225 [facility] ([facility]) Hemoglobin A1c/Hemoglobin.total in Blood 11.1 [facility] ([facility]) ID Date Data Source [id number] 05/13/2021 09:16:10 AM EDT [facility] Name Value Range Interpretation Code Description Data Evelyn rce(s) Supporting Document(s) Progress Note [facility] JXBOWv2tTxZNViGg19/ORGwiOWNfg2RrTEunBGv7GRtuFKXjX5EdJFM2cI1aGQQ9KBgFCyZzMmHkIQYe lbm [file] J6A9P7CHEdZxh0FYqxKj2mOPXZLn5+DKoirTWneQurWEHKUwU6TYGjZUqpANKSNv2Z ID Date Data Source [id number] 05/09/2021 02:13:16 PM EDT [facility] Name Value Range Interpretation Code Description Data Evelyn e(s) Supporting Document(s) Progress Note [facility] MDSCPd0aLfLGRgAj33/LJLamJIRxj3FgBHidDZm2PLsyBTHeN4LcAHG6aB7dPBP0ALnXDcKhWcOmPME9 lbm [file] ICAgICAgICAgICAgICAgICAgICAgICAgICAgICAgIC AgICAgICAgICAgICAgICAgICAgICAgICAgICAgICAgICAgICANCiAgICAgICAgICAgICAgICAgICAgIC AgICAgICAgICAgICAgICAgICAgICAgICAgICAgICAgICAgICAgICAgICAgICAgICAgICAgICAgICAgIC AgICAgICAgICAgICAgICAgICANCiAgICAgICAgICAg ICAgICAgICAgICAgICAgICAgICAgICAgICAgICAgICAgICAgICAgICAgICAgICAgICAgICAgICAgICAg ICAgICAgICAgICAgICAgICAgICAgICAgICAgICANCiAgICAgICAgICAgICAgICAgICAgICAgICAgICAg ICAgICAgICAgICAgICAgICAgICAgICAgICAgICAgIC AgICAgICAgICAgICAgICAgICAgICAgICAgICAgICAgICAgICAgICANCiAgICAgICAgICAgICAgICAgIC AgICAgICAgICAgICAgICAgICAgICAgICAgICAgICAgICAgICAgICAgICAgICAgICAgICAgICAgICAgIC AgICAgICAgICAgICAgICAgICAgICANCiAgICAgICAg ICAgICAgICAgICAgICAgICAgICAgICAgICAgICAgICAgICAgICAgICAgICAgICAgICAgICAgICAgICAg ICAgICAgICAgICAgICAgICAgICAgICAgICAgICAgICANCiAgICAgICAgICAgICAgICAgICAgICAgICAg ICAgICAgICAgICAgICAgICAgICAgICAgICAgICAgIC AgICAgICAgICAgICAgICAgICAgICAgICAgICAgICAgICAgICAgICAgICANCiAgICAgICAgICAgICAgIC AgICAgICAgICAgICAgICAgICAgICAgICAgICAgICAgICAgICAgICAgICAgICAgICAgICAgICAgICAgIC AgICAgICAgICAgICAgICAgICAgICAgICANCiAgICAg ICAgICAgICAgICAgICAgICAgICAgICAgICAgICAgICAgICAgICAgICAgICAgICAgICAgICAgICAgICAg ICAgICAgICAgICAgICAgICAgICAgICAgICAgICAgICAgICANCiAgICAgICAgICAgICAgICAgICAgICAg ICAgICAgICAgICAgICAgICAgICAgICAgICAgICAgIC AgICAgICAgICAgICAgICAgICAgICAgICAgICAgICAgICAgICAgICAgICAgICANCjw/iMRkL6troVSghg E9M7wlUl4ECt9JWH9vl1VmCAYrYFktdmYtNevIXoZyNDUlPlxHIhb6QBztXQ3RuGUqM3OyY9WuPEsvIJ 7SLWIaACSmdREzXZIzYOIgSxM7UZPnUSeyNB2CoZDd QZbsLRXjANTkRL1QSXWyJ473muBlBO1CXz5SZyTzRV5awe6ZEqTfBZSgIsjPVoj4YVhvXF4XrEZthDXc ZjXxJIXNTpRgY9zip3DwRlRnLUIKRGsiBD8Gv3EuzVLlHGp+Dz4YFS7cv9FeCPzmLtXbNY1bgp3MGXiE EqQzO0HriJlnLXTld0tyGSKwKA9ilQFmMPS8DN9ixR znMXFIO18tdX9uNIHEUVPGOFK9KVreUV4mPVGlLTFxHiN4VKYXFH6TLHNrUGQdfAXtLQSlLDAZBQ9NFU spEQU3PAGszjEwbWNwFKazIC8USVWucmNrPzQyJIHBDTs+Mi9AHN7dh1WqROojXwGtDL5azx5EYWxEJg HeP3T9pNMqR3N0MQwwBd4ONBLjVZExBJkzVVCFWEet VN3JMU2dymM3QF3HhLDiUXGmKGQunMUnYDu4K62bxXTyCHpzZM4OHTB+Lobo+Sz3UOHTtPUJcUXJfSxCx SUHCUdOjL5MbL8RRz7GaE7UqDJ16zLlzgtYtJVpqLV9UXQ5fOBUjIJGQLU4RoAOjmG6vphZoJTMfJRRU TmIoA72nyWYuITCpBPRkSEWqUj9EAUXaO3RmiuLsqF jpokHlGJNtABOHNE4LPPbxgqQceARyxXjaGN16uGjhOD1EXa3WBzYeKD7mpc8EnHMjHh3ZYZVaTB7LKC CcGWXsJYLiSOW7DYKbQsVrRPppJNEvYOIiPFJ8ZHQwBKStHZ8MDbPmKWAkFAv8WAZdQEAfXZLvfd1DNG HzFAOoRRJ8IYZoPQHjZHOqZFspTBVgBJGeYMW3ECOg ZMCvBC5ZCiUiAPWiGBV4EhRbYVShEKPflz0JELBhREEbWEY9PCQeVXKvIZDkQNxhNCIlXZU6AOQ7CIJq QGBzCR9XItZtXJWcBFXvJhHhZSRqXDXbxm6GOYPiSBFrLRGrHTMtGEYwGTTtLVniIOApSQT0URTlZGXo UJPwMR0WXoGxMQStKJP2AdPsQKOjOFCsye8NOCWtIZ StTrq1CDAkPEFyFMJqUXfbXVRqXDM5VzM7IOQrLPBkTE8EQgYiZROqHXi6BnEdJIZtRVWnmb2JENRmCI FaSCeyZAYcSGOgKPUsCNpwRBYzQSY1BTbhPPPaDPYyWR9WXdImPUJfPEdeTJtuQVNnTGCmsb8DHNQnZR XiLNBfQMHjDCYkTLMbZCzjJQRnOOO6IuboDIFvGSAv GG8MUmKeNKKvStLkOLTcDTHxUOLrxd6CAFNhEFNsTUA6VXOmPSMsZDCjRSshMWHwYDZtQuLsOAUaCLMw ET6ITeQnOBPyKlL9ZcLqQTJpNNDnrs8PpYJktDxdzr0BJIeCEp6GnYxeXVO3XJikOp4saNXaJrGkGIYA Pg3EudSiRHSeSIYLOWqvTCVfQNpaVSv9SZO3AZeiXH BdQ0K4ZKH2TNTzNlI0SOWyBnAmVjX6V8R9VpJnKKM6KLLvDMU0KEXvNVn0XWEdYYQhTHQdIUG+IF0gDQ o+Ft6Fa2WbikK9izBjPHwtCfZaAO1AWNLCY9YASt== ID Date Data Source [id number] 05/09/2021 01:12:06 PM EDT [facility] Name Value Range Interpretation Code Description Data Evelyn rce(s) Supporting Document(s) Progress Note [facility] BDBDKp3uXeYLXxAb87/QDPyfBBXyj4EcSKzoDPt0QDnfIKLiW3NjXFP2kY1vHBZ1LBqOCdNcEbVgWXW8 lbm [file] ICAgICAgICAgICAgICAgICAgICAgICAgICAgICAgICAgICAgICAgICAgICAgICAgICAgICAgICAgICAg ICAgICAgICAgICAgICAgICAgICAgICANCiAgICAgICAgICAgICAgICAgICAgICAgICAgICAgICAgICAg ICAgICAgICAgICAgICAgICAgICAgICAgICAgICAgIC AgICAgICAgICAgICAgICAgICAgICAgICAgICAgICAgICANCiAgICAgICAgICAgICAgICAgICAgICAgIC AgICAgICAgICAgICAgICAgICAgICAgICAgICAgICAgICAgICAgICAgICAgICAgICAgICAgICAgICAgIC AgICAgICAgICAgICAgICANCiAgICAgICAgICAgICAg ICAgICAgICAgICAgICAgICAgICAgICAgICAgICAgICAgICAgICAgICAgICAgICAgICAgICAgICAgICAg ICAgICAgICAgICAgICAgICAgICAgICAgICANCiAgICAgICAgICAgICAgICAgICAgICAgICAgICAgICAg ICAgICAgICAgICAgICAgICAgICAgICAgICAgICAgIC AgICAgICAgICAgICAgICAgICAgICAgICAgICAgICAgICAgICANCiAgICAgICAgICAgICAgICAgICAgIC AgICAgICAgICAgICAgICAgICAgICAgICAgICAgICAgICAgICAgICAgICAgICAgICAgICAgICAgICAgIC AgICAgICAgICAgICAgICAgICANCiAgICAgICAgICAg ICAgICAgICAgICAgICAgICAgICAgICAgICAgICAgICAgICAgICAgICAgICAgICAgICAgICAgICAgICAg ICAgICAgICAgICAgICAgICAgICAgICAgICAgICANCiAgICAgICAgICAgICAgICAgICAgICAgICAgICAg ICAgICAgICAgICAgICAgICAgICAgICAgICAgICAgIC AgICAgICAgICAgICAgICAgICAgICAgICAgICAgICAgICAgICAgICANCiAgICAgICAgICAgICAgICAgIC AgICAgICAgICAgICAgICAgICAgICAgICAgICAgICAgICAgICAgICAgICAgICAgICAgICAgICAgICAgIC AgICAgICAgICAgICAgICAgICAgICANCiAgICAgICAg ICAgICAgICAgICAgICAgICAgICAgICAgICAgICAgICAgICAgICAgICAgICAgICAgICAgICAgICAgICAg ICAgICAgICAgICAgICAgICAgICAgICAgICAgICAgICANCjw/tVJmK3voiDHylvU0D8ecHz3CIe4ZBZ0a j8HvSNCzJMxbtvWeYpyTBbRrUJZiXkyCGhk1ZBduKZ 4AhOCrF1YmU3DcMXpbFH5QINWqSYFqcHLrRJUcWOEqOgO2ASIaBAvlZM9SnHPuSEhiJWRdPFApMcQgYA UyVDTiLSZwPY1RZTUjX110rbLnVg0KPw3KHbZuUW5qmk2UOfJxUKMlFixIGyn4AFemCV8UdPOdoMOzFh NcCHLNHnZjB7ucf0JdNkciALVZURytXP8Bv9PplPOp DQo+Nl9DKI3du0PmRJiwJsCfEQ3jeg8ILKxNCySvA6CysExjAMBfv6idEUTySM5tuYLfHYJ6YAwogo18 MWJvDSZ9DVZoZL1QLQB0KQpbYQ4uLLEnNZRjArOaIGXDHJ0CCEVmLDBczQKbLFQxGUQWHN8CKGhqBWQ3 EIYmezCynMBjLYybJN2AWOLdqyZdEzWpHTXNMCp+Pg 2BRQ5vj0YhNHauQGDpTU5bys0KRBxQOnTkQ5Z4rLLbT5P9RNwoTk3QVFLjNQHrHdFqPKVVVXavQO6JOY 5glrY1AM0VpPYtVHHmQFEofWOwEHn1X84tkVAeGEcrYY0RJVV+Lobo+Ey4PFUTrVRGjEUSfKnIrYSBJPn LnA5MgX5KYs7CwM3ZbFI22dZvzoyEpCUecGG3SID9m VMGfGYNDSG6KgUCnuK5cufDuEuCxVZZGCiKyB83pkHLiPEZnBEK4CCAvPc9TGTIsG4VsmiVrlQbhywUd QJRpHPLHIH0IHTxvpqQazCFdwOfxSW89vSuuRH0QOf5YHjUrXT0wnw7ClLRdJu0YKYJjHR6ZUIUxFSWb XAHdYYF9NQDpCeUvZSdhQGZzIWMdPMU3XFQzFJGoCI 1LOlKbSTVwMwt9FUKgXAXhXRVeej0TUCVmJGTwBTInScLmYFZtAULaFTmpRERvQFOoQWL9BQZbYJApDF 3JKbRkEPOyBCIpNxEbWDRtCWSlwc8XVFOuONOgVMTgMISkLRCfNIAnPOrrBLHcOPF9WLGiDAXrOFCsNC 4YHlXgALZdBMriOWGdIFJtDXWywp2ICUPpSUZdXZNj SCHvMEOiWQNkWQmsXVOkDYHdGDG3TIWeFJBrJC6NMyOfDVSiDYUpQYWjCSOjPQDjxo0COILjSGHsJqQ2 JgKwEYOdWLNpIWkfQZSkWAXjLqE0LGZeQHBfHE6REoWlABZbCSF6KnQjJAKbJZCesu3OJHBbTWHnSgqb OjEbIZVuOFVgDUcwLSDjEIR5NEV2OBXxHJEvPS4JTa TqLSGbToI3AGOvRRBrBPJucn3GHRRhANChIAv2BKKuTYBmDMAuGRvbMGUuCLS1FWb1IBVrBGGwAI5FKo ZpUDCwIbOnYlbbOUQgHILscr9XMORfWFCmKzH5CBAcXZEsYMEmGJhmAIRrGZR4MNH5EURoMXTzQX0AYd ZoSYJfHwm5FQjdZHJmRIBdmy7FQTVqPAJwCuj7WREo PEUuPCUzOXcrENCbLBY1OZw9OXLcJQOtOR8TMlUsWTNjYtl6YrmyQTIaNVAgvb6MGUHwTMRkOXeyFXRr WZLuGELfNOnaSZBjXGK1HSM4NTWrEDMaGW3MHvSyWBxwSNULEcj1ZZppU6b2LHAdUZ1YP0Ccl4JzAnpa SNIAMXwvRJ2ljiMmMLNnBy8ID5iZJerfEbw3YMuyPJ KyGJOyNhE4QrQ7RkYoPIFwBaVdKCweCn8bFBIjYJm0JLO7QtW9ERNnApTbCqNrZlH2NUA1N8CqX8IoXv LjBJ8VPv3AVhX4WGG7jUBcGc4GEnMiJKhQOuTcXY2ELZp= ID Date Data Source [id number] 05/02/2021 08:26:49 PM EDT [facility] Name Value Range Interpretation Code Description Data Evelyn rce(s) Supporting Document(s) Progress Note [facility] IQSKMf7qMtHYJzFv16/YHVylZJDex5PtHYyyVWk1YDauMVIiU9ApEJP5xI4iMIE2CFfPNqAhVfVmHRDf lbm UhLygJJpIpNSJoAhtUHuEwAOcxJrdyjUAmNE4ZlCP0ZLFhE94lZOLvMMYcN9QcMDU8Hsd+Oz0IQADvfJ CkDP8ASppF3V4sw2oDCa2rwT/DAgWKHBDbfD/QnwRgo9maAM8P+UhGKP1uCc0cqAtdNrVa/fUlJdLyTF a/71YLf3xbKTrkGXy24a3qE1Nq4I+/qtPQtyxLNf+u pz3aV09J9n4/MHiRCQd9rr0b5WVsc0VWTck7kb8Iky+34ydwrprRPmN3sP9PB29UYNajASZHsS7394K5 m2V5dV+2B5iuoDPleStf0z805rn8yp8oAU9w/XffqfP/dVlc9uiXaL2o7Zzc2C+ZNeaYXbwozU1QikeS 9MC2zztenbkswG+/9DMd7JWLMZ0d/Ci0QrwHSnpcUg cPq6uHujzq9TmAVeyOrfn+GLaksTvSnLpWHFnsxzW+0VB58rFA0hpqOgbYSaXnr7r7fmohharVd2/DAVID [file] ana maría/p86Ovff6d+WYurTq85FurHZRbq2JmS24zMjYp3aYiin1+8kmC10XXHNlkhZ2dbG6wKkNws/qhaUe [file] AgICAgICAgICAgICAgICAgICAgICAgICAgICAgICAgICAgICAgICAgICAgICAgICAgICAgICAgICAgIC AgICAgICAgICAgICAgICAgICAgICAgICAgICAgICANCiAgICAgICAgICAgICAgICAgICAgICAgICAgIC AgICAgICAgICAgICAgICAgICAgICAgICAgICAgICAg ICAgICAgICAgICAgICAgICAgICAgICAgICAgICAgICAgICAgICAgICANCiAgICAgICAgICAgICAgICAg ICAgICAgICAgICAgICAgICAgICAgICAgICAgICAgICAgICAgICAgICAgICAgICAgICAgICAgICAgICAg ICAgICAgICAgICAgICAgICAgICAgICANCiAgICAgIC AgICAgICAgICAgICAgICAgICAgICAgICAgICAgICAgICAgICAgICAgICAgICAgICAgICAgICAgICAgIC AgICAgICAgICAgICAgICAgICAgICAgICAgICAgICAgICANCiAgICAgICAgICAgICAgICAgICAgICAgIC AgICAgICAgICAgICAgICAgICAgICAgICAgICAgICAg ICAgICAgICAgICAgICAgICAgICAgICAgICAgICAgICAgICAgICAgICAgICANCiAgICAgICAgICAgICAg ICAgICAgICAgICAgICAgICAgICAgICAgICAgICAgICAgICAgICAgICAgICAgICAgICAgICAgICAgICAg ICAgICAgICAgICAgICAgICAgICAgICAgICANCiAgIC AgICAgICAgICAgICAgICAgICAgICAgICAgICAgICAgICAgICAgICAgICAgICAgICAgICAgICAgICAgIC AgICAgICAgICAgICAgICAgICAgICAgICAgICAgICAgICAgICANCiAgICAgICAgICAgICAgICAgICAgIC AgICAgICAgICAgICAgICAgICAgICAgICAgICAgICAg ICAgICAgICAgICAgICAgICAgICAgICAgICAgICAgICAgICAgICAgICAgICAgICANCiAgICAgICAgICAg ICAgICAgICAgICAgICAgICAgICAgICAgICAgICAgICAgICAgICAgICAgICAgICAgICAgICAgICAgICAg ICAgICAgICAgICAgICAgICAgICAgICAgICAgICANCi AgICAgICAgICAgICAgICAgICAgICAgICAgICAgICAgICAgICAgICAgICAgICAgICAgICAgICAgICAgIC AgICAgICAgICAgICAgICAgICAgICAgICAgICAgICAgICAgICAgICANCjw/yANyP5yxuBHyqhI4K9hsPj 4WGl2ADO6qe8OmAERiDBgzheXsHaaIQgDoZFQcIegR Pms8GPqxVR2VlUGlB8EnR7XzQOlyIC2MYPXdBGTttPZeGKFlRDWkAiK4MWQqNWrdLX1SwIOiOVomBPIn UZFjLtBuNDFpLYBeXWXnBTRkUSUNYBAfBTTnPuDwQLVsQFDeNMyuGMDXRE1VAkJvX1LowO68AVpYHu7+ MOvisjXjXjtJIsB9OTTwf3OuRCh6VM3JIOVpPmosd9 CwOwjjZOJLFWpmNX0WXBP5XVE9CNEiRc5SYRQpK964mbEfDK5UQq5ZLhKrUF8cqf3NHhssWXVnExlJSd r2TQihBN9QiZHlVGcJfn4faaLvtpIRy1RehqLrrXAJYF0bmDHMXM9uoMHtNGQNDHBgsUD1MzZiWuYdXR FvGTq2XOQMVRaTTvOoL2Pes1UyYjF9CYGwZiPtPAme EYBhObC3XF96wIzeCJ5FVNFiJZJaBG41GWX5TPSoHn2LIj7EUsXdFI1lvt9CVwmbRIGiIpuRNvk0BHeu LR2EvVVfP8KszHOsz5fUXrJjZ9RJRIC8UWGdWj1NNJFnNiEhGXHoKWzdMW3gWKLmDZAOvGpkfmJ6YD6K WT1ronWnVP8BAoSbEa1zRq0CXhQqK7YyE4IuXKXsZO WHYPaoJD3HNIffFX4bWI4Si5LXsOTrxL3qxl9SCLErJFMdFpdnjf1OWfqyJ1L9gNnlCTTeRjPwROOQHL slQD0MIMJyKPH1YZFlPBWpCIQTWfSbZ05hYG2FK0Jdv58wLgV9GUMlMzKsRBugZX58gNhzjkLihZCfmE akYD9ORg9+DQplbmRvYmoNCnhyZWYNCjAgMzkNCjAw LKEgMXExQUBsHzX9UoOePn5MUKYcTUAxSWPgQkJiRUGfHXAuXTpdSALlTLJsTGIuZMYjDYUyUV4KDiHo TNPmGNW7JADnPTOeQJJdra9CDYXwKBNuWCI4TlSaUNHlVVHtTWiiPYVhPTP7IBH7IVJoQTOlAJ2ACbAu DMTyURJaBTYhDHReENGerq0XNAClSLJeMWY9RJOfSS OkWFPvQAurGWMrHNO5Qpm6NXRxOURuLR1XYpEzMSUfEGX6OHHwBGCdMTBkbm9PJVEbZCEgKZMxQRWoGR BiMPAzFGxxBJMaWXZoEqY5OENiTZKtTI3XAiCkXTSpAJM4OvFdWIOkQLFyjl3PADLyVPGeLkWuOuVySY BdQYNfHJvpOKFyZUD1LWX7YXLuNFSxYB6XCaMdDMSs ZkM3IMiuKKQrDZPvbf9DKJRsZWTqVHevOAYxYJKnTYFcYFheFBTsTPUfUJddJPAyJPOdQJ8TNvTrEOYv IpNpLKMsRGOsQEFjvi3SFILyUEQdSAR5XtCmTSQgMLUhDDwnONBoHPO9DsHtUJNvEKOyNV9GRkFxEBHs GgV2TsSgGIXlZJMwub2QQSDcAPLnTKV9TYRjJAYuKZ HcITyiIEFaDGU9ZTl9PYAdAHBcSV6VPsBuTBWbQhI8GFYiXAYdRCRunp1CIWPqTYJsFhGvDFEkOOYuON GjUBxdUAAiVFH6OAHeDMMzFLZqJJ3BSxHiVYBhAmv5MTltVMGcVVGspm7MACHuIXGlWbo9IMXqVSVxER DhIObbOVJbRMS1FQA8DLHpTZRqXI6VFoShMDCtAkef LEbfVEUoQFBcly9NGJHnEGReANU7QdCaQYYrFGXaBBvjVQVsYOR3UVM6VCAsVSUeIC8LRfCwIMLcQle4 POrtGAWvIKJfhe6XPYHqEMX2UFFsAKDvMPXsOYMbGHutGIRkWPRrOGA6JECoIPOaUJ2KEiDlQXJjZYR8 XRGqIDXkEEVsqb2NXQIuXIV2ObZtPTOlBEZaUPPhUM oxPKFiJQFaHTTlCCUpLGRnEL1IXrPdAYooITRXZuh4NAetF4m7BHBeHS9CM8Nxm7ZiKbnyIMQWOXupYW 8atzNnIPUmAq2CJ7hJHzo0Fim0IMNgFJNmUWEfSqCnWDV7O9WrMauyLINnHKClQD0wQVtwYLk6WGCzCE AtMLMiGfAuEQFqPuDlYYPnPvFaSQPbZjCaDE8PXn1MHyG7OLG9fUWnYm5HWVR3NKYPJqPaFS7PKUi= ID Date Data Source [id number] 04/10/2021 09:13:44 AM EDT [facility] Name Value Range Interpretation Code Description Data Evelyn rce(s) Supporting Document(s) ED Provider Note [facility] XKNREm9pFpRUGwSg83/UTAeoZBKcs7YoIAizLFf4JYtcEBWkL8DcWHQ5jM8vOBD6FZtNRxRfLdLnFLDl lbm [file] YZ1isoC0IK9SbGWlHCOfRKSjeNKhYKx4B86hwYAeNRbuGR5YEIQ+Lobo+Cs0HKCJrAACgNMOfMfLgEWAN AaNlT7ExS0HYv4MwO8NdYI25uWhoqpOnMFhqJU0TZQ 1bKRTlTIMOKA8PyVYtqM7squS5YOXuXHYZUsZaU85nnOMaZLQjEMXbVDNmPe9ZAVPmP2SjshMtxYkiho PtHECpJVSASP8EKCvuzvZqjKCjiWxoDO10zMlvYE9GVe7OVxMnAG0cow1FcYDsLr9FCRC8Cb6VSMAiVS EdRQScUEX6PVLfJaKjXDloKPAmVQRrXRY3VTVdGBMg HH7NPeZnSKAxBdU1VtOiTIEfHZFfdj3VBRMzSSC9OxJkWiJaPOSxTCFfRNufUWHqDODpPSR7BVYvQBSw AQ1VUbAiZHDvALDzOZRdCJPyWLSspi9ECLSjVWZjYjA5RRYnCOCtJCJcKGyrXKQzEPQ3XcKkMUWbVTFd FW9SAqMuONSjXRB1VDagOJAuXEFang9UFMRrRASiUH F5ZNOvUZZzLMGzXIfoMFFqOCP3Cjl5NLZiUPTjSE8IPtJhMPJlPME0BvltTBNdODCiaq4CTSUtBVXzGe D2XBOyEZBwJNTqGEjxSFAkJQK3BVIkVPWyHDUiZG8WMjHjPVJlFXP8KWbzECXkZVEuxu5FIAYzGBPaUF N1MSKgBEOrFFLhEJphNRWmXLM4GlpfBRByPUOfHJ9P UaNoLGQxUtB0NsRbISBnVJWfkc4DKOLyWOJvXBvlDXRjOHUjTPHcHIioAZMpRZElMPV4ZYAkMQMvRP7D PoJmAUMyLzW1IjFeGJNaYHDmts5NHAZyAPCvGjF8QYVtFWXzGLCtFBslTNGnEKI9GPa6BPQlPGRxUK9Q AsXpNXGxXhWaPFXnPFQlATCjby4DMRJwYBMnWCP2NF YnPYHbFGTsQBwoYRSzXEJhOYM4JJYkTLVtOE4KOfKoYGNsSaRgGrWjMYHwWHOvhv3WQHBeBSAdMmK3Hv IfIWHiXZSeASocIEFoTTG3RxMgQTXkMRFqOC1MFlFvPUVuAXS0CburUGQnNJKwff2RRORfTTZ0NFJ2IL ZiYQDsUGWdGPalZZUjMKTiEpx7VNQpOWVmJH2BJgDr TPFqCRJdOWFrLCIlKQCmkx5YMGRpMFR3Wej2YvBhYGEtLEIzWBxkXTTqLFH0YAWjPEPuHUIdFF0XLoCr EFKhOCCeCHJnLURfFAGcnf1UQBHhALE4FUTcEjEqNBMhYDNbGHhxPVXgOZT7DCY0SFWgLNBsMK0UGtZf DRDmIWI1COTaLNQtYTDwth9NNSEuJCZ7AfY1ElWkCX DlLHEcMCfeIWOjKPW7DZT3UHHjVUNgTO0ZFjIxGZVsXBckZyKbUNHaLCTbie4IMPLaVFF4LGThClXyPO LlURCiXXelOYXhJMP8GhT6IVUhLDWmCH6THlAqFHKpFIq0GKYmFFYnWMAmsd1WMHMlOQB9KLS6VlGoDN NzHDPcONfpNHKbNFV5UjS9RRDyYJNbSU8VFlIbAFGa IeEdLzHlRHNgQJRxfy3DFUFxCXI0DHY5DFHuWTKlLJVwVJatEXRuJNNeMvF1JGYyKJWsPY0SPdPbXUPk OvBsWdCmJNXoKUUyhu9LXPDzKKT0RmKjSNSuZHQyXPAcSCyhACFeICRvTzejUBSlHZUwFO7MAdAxUMLt QiO5FjrfRWXbNCKkzt9SDZTmQLI3XvPyZVKpHHJnJX LxXLnyDRJgZUHzDgLdCLLuMNCvUV7CJsLwMHLtQbYcVwidYWMiJZUvwb6IHDXnQHA5SlY8QLFoDJDkCC GnMGsjMRHrMSHoObD4CBExURLwZI8ZIiRrEHTbEtZ1BWVuEYKgSCXavl9SNKYeLMO5HWD0OZAfOQGyEE PnJGgeIJAhCTW0EdS6JBAuYTYmPO5IXgGoZUwxUFXP Xsu0YUtvR8u4TNV2Cz2FW4Tau2LmGiTgCBQWLVjmIO3ahcGjHYCeTl9SP0dGSfg9GEQtZKUqBOLgDLX4 MjgvHdkdMOB3BvCrJRT6THMtLN7tQKolMrKyHuZ0YAHePcrxYOZnGlAnBtxyW5R2QTMkPVCqEzOiUB1Z Uh2OIcH8ULY1wVZjSe3HTmM2GOMHYzRsIQ3UZCn= ID Date Data Source [id number] 04/09/2021 10:34:31 PM EDT [facility] Name Value Range Interpretation Code Description Data Evelyn rce(s) Supporting Document(s) Discharge Summary [facility] ZJKKPi9gUtPYCwBs68/MHHpuWAPjd3PgALywKLa2QZcgEZXlJ5KfPWR4qU7zYVH3HItLLpKiOsZlXHWm lbm [file] T0YNCg== ID Date Data Source [id number] 04/09[facility]2021 12[facility]24[facility] Value [facility] Interpretation Code Description Data Evelyn rce(s) Supporting Document(s) Glucose [Mass/volume] in Capillary blood by Glucometer 213 mg/dL 70- 140 [facility] ID Date Data Source [id number] 04/09/2021 08:45:11 AM [facility] Value Range Interpretation Code Description Data Evelyn rce(s) Supporting Document(s) Glucose [Mass/volume] in Capillary blood by Glucometer 152 mg/dL 70- 140 [facility] ID Date Data Source [id number] 04/09/2021 06:48:42 AM [facility] Value Range Interpretation Code Description Data Evelyn rce(s) Supporting Document(s) Leukocytes [#/volume] in Blood by Automated count 15.5 10*3/uL 4-10 [facility] Erythrocytes [#/volume] in Blood by Automated count 4.22 10*6/uL 4.1- 5.3 [facility] Hemoglobin [Mass/volume] in Blood 11.8 g/dL 11.5-15.5 [facility] Hematocrit [Volume Fraction] of Blood by Automated count 36.3 % 3 6-45 [facility] Erythrocyte mean corpuscular volume [Entitic volume] by Auto mated count 86.0 fL 80-96 [facility] Erythrocyte mean corpuscular hemoglobin [Entitic mass] by Automated count 27.9 pg 27-33 [facility] Erythrocyte mean corpuscular hemoglobin concentration [Mass/volume] by Automated count 32.5 g/dL 32.0-[facility] [Ratio] by Automated count 14.2 % 11.5-14.5 [facility] Platelets [#/volume] in Blood by Automated count 328 10*3/uL 150-400 [facility] Differential cell count method - Blood [facility] Neutrophils/100 leukocytes in Blood by Automated count 59 % [facility] Lymphocytes/100 leukocytes in Blood by Automated count 29 % [facility] Monocytes/100 leukocytes in Blood by Automated count 7 % [facility] Eosinophils/100 leukocytes in Blood by Automated count 4 % [facility] Basophils/100 leukocytes in Blood by Automated count 1 % [facility] Neutrophils [#/volume] in Blood by Automated count 9.09 10*3/uL 1.8-7 .0 [facility] Lymphocytes [#/volume] in Blood by Automated count 4.54 10*3/uL 1.2-4 .0 [facility] Monocytes [#/volume] in Blood by Automated count 1.14 10*3/uL 0-0.8 [facility] Eosinophils [#/volume] in Blood by Automated count 0.58 10*3/uL 0-0.5 [facility] Basophils [#/volume] in Blood by Automated count 0.12 10*3/uL 0-0.2 [facility] Nucleated erythrocytes/100 leukocytes [Ratio] in Blood by Automated count 0 /100{WBCs} 0-0 [facility] ID Date Data Source [id number] 04/09/2021 07:54:19 AM EDT [facility] Name Value Range Interpretation Code Description Data Evelyn rce(s) Supporting Document(s) Bicarbonate [Moles/volume] in Serum 18 mmol/L 22-29 [facility] Chloride [Moles/volume] in Serum or Plasma 103 mmol/L 98-107 [facility] Creatinine [Mass/volume] in Serum or Plasma 1.43 mg/dL 0.50-0.90 [facility] Glucose [Mass/volume] in Serum or Plasma 198 mg/dL 70-140 [facility] Potassium [Moles/volume] in Serum or Plasma 4.4 mmol/L 3.4-5.1 [facility] Sodium [Moles/volume] in Serum or Plasma 134 mmol/L 136-145 [facility] Urea nitrogen [Mass/volume] in Serum or Plasma 35 mg/dL 6-20 [facility] Anion gap 3 in Serum or Plasma 13 mmol/L 8-15 [facility] Osmolality of Serum or Plasma by calculation 291 mosm/kg 275-300 [facility] Creatinine/Urea nitrogen [Mass Ratio] in Serum or Plasma 24 [facility] Calcium [Mass/volume] in Serum or Plasma 9.4 mg/dL 8.6-10.0 [facility] Glomerular filtration rate/1.73 sq M pre dicted among non-blacks [Volume Rate/Area] in Serum or Plasma by Creatinine-based formula (MDRD) 43 mL/min/1.73m2 >60 [facility] Glomerular filtration rate/1.73 sq M pre dicted among blacks [Volume Rate/Area] in Serum or Plasma by Creatinine-based formula (MDRD) 50 mL/min/1.73m2 >60 [facility] ID Date Data Source [id number] 04/08/2021 09:22:54 PM EDT [facility] Value Range Interpretation Code Description Data Evelyn rce(s) Supporting Document(s) Glucose [Mass/volume] in Capillary blood by Glucometer 250 mg/dL 70- 140 [facility] ID Date Data Source [id number] 04/08/2021 05:12:50 PM [facility] Value Range Interpretation Code Description Data Evelyn rce(s) Supporting Document(s) Glucose [Mass/volume] in Capillary blood by Glucometer 227 mg/dL 70- 140 [facility] ID Date Data Source [id number] 04/08/2021 12:55:25 [facility] Value Range Interpretation Code Description Data Evelyn rce(s) Supporting Document(s) Glucose [Mass/volume] in Capillary blood by Glucometer 231 mg/dL 70- 140 [facility] ID Date Data Source [id number] 04/08/2021 08:43:31 AM EDT [facility] Value Range Interpretation Code Description Data Evelyn rce(s) Supporting Document(s) Glucose [Mass/volume] in Capillary blood by Glucometer 157 mg/dL 70- 140 [facility] ID Date Data Source [id number] 04/08/2021 08:44:36 AM [facility] Name Value Range Interpretation Code Description Data Evelyn rce(s) Supporting Document(s) Glucose [Mass/volume] in Capillary blood by Glucometer 167 mg/dL 70- 140 [facility] ID Date Data Source [id number] 04/08/2021 04:04:32 AM [facility] Name Value Range Interpretation Code Description Data Evelyn rce(s) Supporting Document(s) Leukocytes [#/volume] in Blood by Automated count 16.9 10*3/uL 4-10 [facility] Erythrocytes [#/volume] in Blood by Automated count 4.04 10*6/uL 4.1- 5.3 [facility] Hemoglobin [Mass/volume] in Blood 11.7 g/dL 11.5-15.5 [facility] Hematocrit [Volume Fraction] of Blood by Automated count 35.1 % 3 6-45 [facility] Erythrocyte mean corpuscular volume [Entitic volume] by Auto mated count 86.7 fL 80-96 [facility] Erythrocyte mean corpuscular hemoglobin [Entitic mass] by Automated count 29.0 pg 27-33 [facility] Erythrocyte mean corpuscular hemoglobin concentration [Mass/volume] by Automated count 33.4 g/dL 32.0-36.0 [facility] width [Ratio] by Automated count 14.1 % 11.5-14.5 [facility] Platelets [#/volume] in Blood by Automated count 343 10*3/uL 150-400 [facility] Differential cell count method - Blood [facility] Neutrophils/100 leukocytes in Blood by Automated count 60 % [facility] Lymphocytes/100 leukocytes in Blood by Automated count 26 % [facility] Monocytes/100 leukocytes in Blood by Automated count 9 % [facility] Eosinophils/100 leukocytes in Blood by Automated count 4 % [facility] Basophils/100 leukocytes in Blood by Automated count 1 % [facility] Neutrophils [#/volume] in Blood by Automated count 10.09 10*3/uL 1.8- 7.0 [facility] Lymphocytes [#/volume] in Blood by Automated count 4.45 10*3/uL 1.2-4 .0 [facility] Monocytes [#/volume] in Blood by Automated count 1.56 10*3/uL 0-0.8 [facility] Eosinophils [#/volume] in Blood by Automated count 0.64 10*3/uL 0-0.5 [facility] Basophils [#/volume] in Blood by Automated count 0.11 10*3/uL 0-0.2 [facility] Nucleated erythrocytes/100 leukocytes [Ratio] in Blood by Automated count 0 /100{WBCs} 0-0 [facility] ID Date Data Source [id number] 04/08/2021 04:25:21 AM EDT [facility] Name Value Range Interpretation Code Description Data Evelyn rce(s) Supporting Document(s) Bicarbonate [Moles/volume] in Serum 18 mmol/L 22-29 [facility] Chloride [Moles/volume] in Serum or Plasma 106 mmol/L 98-107 [facility] Creatinine [Mass/volume] in Serum or Plasma 1.55 mg/dL 0.50-0.90 [facility] Glucose [Mass/volume] in Serum or Plasma 191 mg/dL 70-140 [facility] Potassium [Moles/volume] in Serum or Plasma 4.3 mmol/L 3.4-5.1 [facility] Sodium [Moles/volume] in Serum or Plasma 135 mmol/L 136-145 [facility] Urea nitrogen [Mass/volume] in Serum or Plasma 39 mg/dL 6-20 [facility] Anion gap 3 in Serum or Plasma 11 mmol/L 8-15 [facility] Osmolality of Serum or Plasma by calculation 295 mosm/kg 275-300 [facility] Creatinine/Urea nitrogen [Mass Ratio] in Serum or Plasma 25 [facility] Calcium [Mass/volume] in Serum or Plasma 9.0 mg/dL 8.6-10.0 [facility] Glomerular filtration rate/1.73 sq M pre dicted among non-blacks [Volume Rate/Area] in Serum or Plasma by Creatinine-based formula (MDRD) 39 mL/min/1.73m2 >60 [facility] Glomerular filtration rate/1.73 sq M pre dicted among blacks [Volume Rate/Area] in Serum or Plasma by Creatinine-based formula (MDRD) 45 mL/min/1.73m2 >60 [facility] ID Date Data Source [id number] 04/07/2021 09:14:20 PM EDT [facility] Name Value Range Interpretation Code Description Data Evelyn rce(s) Supporting Document(s) [facility] WOLTMh1mYuCBCaVab0LeRgVsUEFnIQ7qlbk1Q0P1jCJwU2XglNHdr7rkN0UzD3WdMYEmKRDNQI2SyOOr jb2 [file] 379//vv98H/967/9j3/9N//xP/2T4/flying ii instructor/7Pf/13//Qc2DnjYca2o/sTv/9mjfnP//zf/6vW55/U/v78 [file] don+0ewlz/GUJ4YV2uMzrdBHm34yU/Tfp9/8rbk57 eZSDa40w9y4YVGU/mn10mo1v3314a48Y9+nfd56yi/06eK6z/45Tbi6I91bik415CH+CduvS6rty9ALi R2vKn9Qk8QZLwb1SNYHteCgvfyey9/fZIs95n64ABOoaA2MC7po5dUUJ/zbwG+Hv5mrGT03WrkY5CemR ElfziO6sB+QPpA+aK6B52J5UuDRM1HT9q2/fgLBfGr 0gPpkLcf/4tOS8hFpDh2Dx5ezlY0aOd3ciO+VRC/Uq7iIkJ8sUu9MLaRf9RdXXhE6U19uwWeDe4YuJ9L 4ldlYLwa+B6K78v7sRmdh5OT0jD0k2GtX75VVm9kJPd2fMZlcyu+NQkCirgbk3pxooIxce45Nd+EvLMi Dp28BbUXz24n6ld9D+travel [employer]+0/+LkKX+gx8vCdxv+Zf+ [file] ID Date Data Source [id number] 04/07/2021 05:30:46 PM EDT [facility] Value Range Interpretation Code Description Data Evelyn rce(s) Supporting Document(s) Glucose [Mass/volume] in Capillary blood by Glucometer 335 mg/dL 70- 140 [facility] ID Date Data Source [id number] 04/07/2021 12:43:33 PM EDT [facility] Value Range Interpretation Code Description Data Evelyn rce(s) Supporting Document(s) Glucose [Mass/volume] in Capillary blood by Glucometer 346 mg/dL 70- 140 [facility] ID Date Data Source [id number] 04/07/2021 08:31:06 AM EDT [facility] Value Range Interpretation Code Description Data Evelyn rce(s) Supporting Document(s) Glucose [Mass/volume] in Capillary blood by Glucometer 214 mg/dL 70- 140 [facility] ID Date Data Source [id number] 04/07/2021 01:40:51 AM EDT [facility] Name Value Range Interpretation Code Description Data Evelyn rce(s) Supporting Document(s) Leukocytes [#/volume] in Blood by Automated count 17.1 10*3/uL 4-10 [facility] Erythrocytes [#/volume] in Blood by Automated count 4.13 10*6/uL 4.1- 5.3 [facility] Hemoglobin [Mass/volume] in Blood 11.7 g/dL 11.5-15.5 [facility] Hematocrit [Volume Fraction] of Blood by Automated count 35.4 % 3 6-45 [facility] Erythrocyte mean corpuscular volume [Entitic volume] by Auto mated count 85.9 fL 80-96 [facility] Erythrocyte mean corpuscular hemoglobin [Entitic mass] by Automated count 28.2 pg 27-33 [facility] Erythrocyte mean corpuscular hemoglobin concentration [Mass/volume] by Automated count 32.9 g/dL 32.0-36.0 [facility] width [Ratio] by Automated count 14.2 % 11.5-14.5 [facility] Platelets [#/volume] in Blood by Automated count 368 10*3/uL 150-400 [facility] Differential cell count method - Blood [facility] Neutrophils/100 leukocytes in Blood by Automated count 62 % [facility] Lymphocytes/100 leukocytes in Blood by Automated count 24 % [facility] Monocytes/100 leukocytes in Blood by Automated count 9 % [facility] Eosinophils/100 leukocytes in Blood by Automated count 4 % [facility] Basophils/100 leukocytes in Blood by Automated count 1 % [facility] Neutrophils [#/volume] in Blood by Automated count 10.77 10*3/uL 1.8- 7.0 [facility] Lymphocytes [#/volume] in Blood by Automated count 4.06 10*3/uL 1.2-4 .0 [facility] Monocytes [#/volume] in Blood by Automated count 1.46 10*3/uL 0-0.8 [facility] Eosinophils [#/volume] in Blood by Automated count 0.66 10*3/uL 0-0.5 [facility] Basophils [#/volume] in Blood by Automated count 0.11 10*3/uL 0-0.2 [facility] Nucleated erythrocytes/100 leukocytes [Ratio] in Blood by Automated count 0 /100{WBCs} 0-0 [facility] ID Date Data Source [id number] 04/07/2021 02:01:39 AM EDT [facility] Name Value Range Interpretation Code Description Data Evelyn rce(s) Supporting Document(s) Bicarbonate [Moles/volume] in Serum 17 mmol/L 22-29 [facility] Chloride [Moles/volume] in Serum or Plasma 102 mmol/L 98-107 [facility] Creatinine [Mass/volume] in Serum or Plasma 1.39 mg/dL 0.50-0.90 [facility] Glucose [Mass/volume] in Serum or Plasma 254 mg/dL 70-140 [facility] Potassium [Moles/volume] in Serum or Plasma 4.5 mmol/L 3.4-5.1 [facility] Hemolyzed Sodium [Moles/volume] in Serum or Plasma 132 mmol/L 136-145 [facility] Urea nitrogen [Mass/volume] in Serum or Plasma 35 mg/dL 6-20 [facility] Anion gap 3 in Serum or Plasma 13 mmol/L 8-15 [facility] Osmolality of Serum or Plasma by calculation 290 mosm/kg 275-300 [facility] Creatinine/Urea nitrogen [Mass Ratio] in Serum or Plasma 25 [facility] Calcium [Mass/volume] in Serum or Plasma 9.3 mg/dL 8.6-10.0 [facility] Glomerular filtration rate/1.73 sq M pre dicted among non-blacks [Volume Rate/Area] in Serum or Plasma by Creatinine-based formula (MDRD) 44 mL/min/1.73m2 >60 [facility] Glomerular filtration rate/1.73 sq M pre dicted among blacks [Volume Rate/Area] in Serum or Plasma by Creatinine-based formula (MDRD) 52 mL/min/1.73m2 >60 [facility] ID Date Data Source [id number] 04/06/2021 10:24:12 PM EDT [facility] Name Value Range Interpretation Code Description Data Evelyn rce(s) Supporting Document(s) History and Physical [facility] GDQDIu7jRbGRUwVm00/ZAUdiAFOkd9AcGNelACl4HUerHQBmJ2AzYZL1eZ3rAQM6HCeNPkZdBkAaHYO8 lbm [file] 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/P1YlMyh0/Bp7/SavyK4ZH1tx+VWgHZO8zgBpQY [file] 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+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+uxCZq1OZAiG5wbbN75YZjfnakcnFxtMRTfagalTBpoZEdXECPw37Ir3T63Na+Bn9X0skB qsYjpGpha0qX8cSormte1mZ7uxU7WvPPoE31aikcMG 4DlAonCoHLZxYO32T5hIlZlLOL2+EfmkEMt/os42mV9LSLHZpu24HS7V8SHq55I6s3bAmJKFl1wBZh+r iZQ2C+GgfI8UOaH3VrfMc0JsgJwkuDvB+/p65oNaZIVX6rCj8Re8MMX45U9t5HFMHmZBx2UFsTvpih7C 4iBg04yduRIwOhjPF/pJA+PBuTsKpfO5LKBRPojtzL B8QzHVe01RgR9DOIEeVIqlprw6BDZn/oZwYbgZv1R8JRaD6y0j8LpE9pQHUT2TFIC/9vMgrG+BzIa0l8 S6aYwYcLd51nMuY8wnKU/InlKdfDaTU6WbLKt/H2skasN++ns0Pzk3Wa0vXZy/KFd7fGmJWpvzj064/y 5wfL2I/rx/z1HClHdcsf6k/UOfX1aYUJCCcWTXpJqS eLrZn+I8PsreSO5m/IZPsVm0DO56qtepZ3dZeWF4XGRyAUguFyvLcYthTdK7ygnDnoQV0/Decz+cork slabs sawyer+d JNUxYPbL7uY2HGPFpEWQOjbGWjN1k2kmqRYc7vgHCkSyPj/wlIEFkrrBxU2Fy6sU/OWejkPGm5FyL7G6 9fvm+Jjjkjo+0B2H3nrvRPqp5ispF9DomaViOWe4y2 AZUCzjhjxyf1M/jz3z/2wUxcZN5lKP4//GhWIXTeV0OLfpbGnGxN76PN0Il+aAQbeGwr6lQM+sVWhZ0O +Gqug8zk/UoJMsur9L4UmHx1/A9UXQH2ZTI3Cq7ZxSyFpIlnothbJkH8Adh/cRGH5jZbuGbk/euajA5T 3zVC9odudb96DsjbikAwqgau4Fn491C+MXI57G+GcY Px/RiOHNSDOQliPSEWlY/nYC2SM/WIf+a2TZmr5+GyZuAC48I4E+B1LqX3tFN4ly12rBtefVESi/ZDTJ N4NA3H3HTsU/0k4LH454oduEG0Wbw+8dWVV2FwYjASJDdf7S5tM0Qo3W41/ggmU5NPhpPjgN5Glinil+ ZMqg8tlNeL5SmV8S25VbpGIJua3UPUdMQziivdSTf3 NT9daABkwx28r7YkfmwYMwWVZ/5v2Raxv48Snh4cUh/CeaLvySHnc8apOF4wcCQIzUxme/Nq3MycP/Q6 vFApjnls8BXjLCrAzNBW68t+Jkuvu/rct/REcn6+n/wdeT0uoge3OBoXq7HGUAl/OXtzGP0vlvi//Alexandre rd8R/HU+dQT91LN3iV9O8OltgUgHLM0j2/ClpbSE/0 2F3gZ3MqtKK+ZSEbf5EFOOhZuoeC+xD/eTKyZ0R6EzxT37ddendNx6+hYbPxHYsIwNlGOCsAqOB4akme AxdMc8m9B0xX0920SS8b/WzGw0Nbq/sQ+1nEzm6PgshSnKVKR+mDULLRGc1ctp8QYbdgFhgUP4JakGmS XIppHpdIKWs2XjcnVMhwDXPlPvXbLOiE/PFIbUhtKN 8n9/e0cI9nEk7ofI7nDrkfLm6dLN0q58y0PIrkaWQbrnS0aFmMc2DQQn2YP3k8kPzRK9L8CV90FtDy9Q Diox65ky8Qddp4jpDxnws8V8Jvul0QZL3um+tTZe0R2AjqC2s5MnPGp/w+7iXrRTMnAtD2qrsI/0X8gO /VrCe/xetDqjz3n+P03UDO6HC7coUD9j9A8z6y23P6 5HrLy9a6Uh5Mhqf/KdtgF6hspnX3R10ThUIW73mrIXhYn63agNG+gOT4ePTYbpOzS5Z/jZ2CUDawyof+ E2Kevl+nUZjuu0D79wD4OcM0/MUJnZ/hv83Jn4Bfyw3f+hGwVQbaaL8rXaf7vQcFns6al88pr0EP5wWF W0Lpe21rLp0s0UW4gEjql1/d0ImYwnz32vg20/hruy P1t80StYpfL5XcyTvXhI35q103x1djup4t/azpfy4ConB4RSgW3+FdawDzag/ycufr+2bKVEQdtutcLL ur4y0SvVdujQly2bUGf/zPiFyAl2Dx7QAwT6oP5E8mGDFX13E59cDc9MDQNcMwm50tQVRz+CMuxXghf3 uB1q3GIIp4wNvdqLac/YD+e2qThWheKpKlvo7JwRqC ocDZcsyFeyPBrR25Pibr6FuljrPapnxFz2HkEKEjah6LB5W46ctvU2BuoNGHKfM0u7muV0o2dy5YW3l2 ravinder/Bl1mbBV0DmGLcoVWFiyhAt1cO9dqgSL3KAqRnF9E3pyu9dGbNK3mz5fcri8D8nrYU1TjQtbvBGsD [file] KrT6OvCkZwO3X4O7UYBqYGZ8Pr4sVSZBGs9+HDcgbAIzwDcwRQUCXtRuGSA6ZNcrONUFDd6Z ID Date Data Source [id number] 04/06/2021 10:15:22 PM EDT [facility] Name Value Range Interpretation Code Description Data Evelyn rce(s) Supporting Document(s) Glucose [Mass/volume] in Capillary blood by Glucometer 320 mg/dL 70- 140 [facility] ID Date Data Source [id number] 04/06/2021 07:57:46 PM [facility] MR BRAIN WITHOUT CONTRAST [id number] RES ULTInterpreted by:Rod Rincon MDINDICATION: Evaluate for acute ischemic stroke.TECHNIQUE: Multisequence multiplanar MR images of the brain without intravenous contrast; 2D TOF were submitted for interpretation of the MRA of the neck: Non-contrast MR angiogram of the brain was performed with axial TOF images. 3D maximum intensity projections were generated. All measurements are per NASCET criteriaCOMPARISONS: CT head dated 04/06/2021 at 5:58 AM and MRI brain dated 07/19/2020.FINDINGS: MRI BRAIN:There are no areas of abnormal restricted diffus ion to suggest acute infarct. Again noted, encephalomalacia [...] white matter disease. Prominence of the perivascular spaces.The paranasal sinuses are well aerated. There is opacification of a few mastoid air cells on the left. The visualized orbits are normal in appearance.MRA NECK:Motion artifact degrades images at the origins of the carotid and vertebral arteries. Flow signal consistent with patency is shown within the common carotid, cervical segments of the internal carotid, external carotid, and vertebral arteries. The left vertebral artery is dominant. No dissection or hemodynamically significant flow stenosis is shown. MRA HEAD:Flow signal is shown in the intracranial segments of the internal carotid arteries, the anterior, middle and posterior cerebral arteries, the anterior communicating artery, the intracranial segments of the vertebral arteries, and the basilar artery. No aneurysm, arteriovenous malformation, dissection, nor hemodynamically significant flow stenosis is shown.IMPRESSION:1. No acute cerebral or cerebellar infarct.2. 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 Old lacunar infarct in the left thalamus.4. No large vessel occlusion in the [place].5. No occlusion in the major arteries of the neck.This document has been electronically signed by Morgan Dobosn MD on 04/06/2021 7:55 PM Name Value Range Interpretation Code Description Data Evelyn rce(s) Supporting Document(s) ID Date Data Source [id number] 04/06/2021 07:57:46 PM [facility] MR ANGIOGRAPHY NECK WITHOUT CONTRAST 705 47FINAL RESULTInterpreted by:Rod Rincon MDINDICATION: Evaluate for acute ischemic stroke.TECHNIQUE: Multisequence multiplanar MR images of the brain without intravenous contrast; 2D TOF were submitted for interpretation of the MRA of the neck: Non-contrast MR angiogram of the brain was performed with axial TOF images. 3D maximum intensity projections were generated. All measurements are per NASCET criteriaCOMPARISONS: CT head dated 04/06/2021 at 5:58 AM and MRI brain dated 07/19/2020.FINDINGS: MRI BRAIN:There are no areas of abnormal restricted diffusion [...] white matter disease. Prominence of the perivascular spaces.The paranasal sinuses are well aerated. There is opacification of a few mastoid air cells on the left. The visualized orbits are normal in appearance.MRA NECK:Motion artifact degrades images at the origins of the carotid and vertebral arteries. Flow signal consistent with patency is shown within the common carotid, cervical segments of the internal carotid, external carotid, and vertebral arteries. The left vertebral artery is dominant. No dissection or hemodynamically significant flow stenosis is shown. MRA HEAD:Flow signal is shown in the intracranial segments of the internal carotid arteries, the anterior, middle and posterior cerebral arteries, the anterior communicating artery, the intracranial segments of the vertebral arteries, and the basilar artery. No aneurysm, arteriovenous malformation, dissection, nor hemodynamically significant flow stenosis is shown.IMPRESSION:1. No acute cerebral or cerebell ar infarct.2. 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 Old lacunar infarct in the left thalamus.4. No large vessel occlusion in the [place].5. No occlusion in the major arteries of the neck.This document has been electronically signed by Morgan Dobson MD on 04/06/2021 7:55 PM Name Value Range Interpretation Code Description Data Evelyn rce(s) Supporting Document(s) ID Date Data Source [id number] 04/06/2021 07:57:46 PM [facility] MR ANGIOGRAPHY HEAD WITHOUT CONTRAST 705 44FINAL RESULTInterpreted by:Rod Rincon MDINDICATION: Evaluate for acute ischemic stroke.TECHNIQUE: Multisequence multiplanar MR images of the brain without intravenous contrast; 2D TOF were submitted for interpretation of the MRA of the neck: Non-contrast MR angiogram of the brain was performed with axial TOF images. 3D maximum intensity projections were generated. All measurements are per NASCET criteriaCOMPARISONS: CT head dated 04/06/2021 at 5:58 AM and MRI brain dated 07/19/2020.FINDINGS: MRI BRAIN:There are no areas of abnormal restricted diffusion [...] white matter disease. Prominence of the perivascular spaces.The paranasal sinuses are well aerated. There is opacification of a few mastoid air cells on the left. The visualized orbits are normal in appearance.MRA NECK:Motion artifact degrades images at the origins of the carotid and vertebral arteries. Flow signal consistent with patency is shown within the common carotid, cervical segments of the internal carotid, external carotid, and vertebral arteries. The left vertebral artery is dominant. No dissection or hemodynamically significant flow stenosis is shown. MRA HEAD:Flow signal is shown in the intracranial segments of the internal carotid arteries, the anterior, middle and posterior cerebral arteries, the anterior communicating artery, the intracranial segments of the vertebral arteries, and the basilar artery. No aneurysm, arteriovenous malformation, dissection, nor hemodynamically significant flow stenosis is shown.IMPRESSION:1. No acute cerebral or cerebell ar infarct.2. 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 Old lacunar infarct in the left thalamus.4. No large vessel occlusion in the [place].5. No occlusion in the major arteries of the neck.This document has been electronically signed by Morgan Dobson MD on 04/06/2021 7:55 PM Name Value Range Interpretation Code Description Data Evelyn rce(s) Supporting Document(s) ID Date Data Source [id number] 04/06/2021 05:19:25 PM [facility] Name Value Range Interpretation Code Description Data Evelyn rce(s) Supporting Document(s) Glucose [Mass/volume] in Capillary blood by Glucometer 300 mg/dL 70- 140 [facility] ID Date Data Source [id number] [facility] Value Range Interpretation Code Description Data Evelyn rce(s) Supporting Document(s) Glucose [Mass/volume] in Capillary blood by Glucometer 284 mg/dL 70- 140 [facility] ID Date Data Source [id number] 04/06/2021 01:01:08 PM EDT [facility] CT HEAD WITHOUT CONTRAST [id number] RESU LTInterpreted by:Juih Frias, DOINDICATION: new onset bilateral lower extremity weakness. Concern for ICH v mass.TECHNIQUE: Multidetector axial CT images were obtained from the skull base to the vertex without administration of intravenous contrast. Coronal and sagittal reformats were also obtained. 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 Old lacunar type infarcts are present within bilateral basal ganglia and left thalamus, unchanged. No acute intracranial hemorrhage or acute territorial infarction is evident. Ex vacuo dilation of the occipital horn of the right lateral ventricle. Mild cerebral volume loss with commensurate dilation of the ventricles and sulci. No mass effect or midline shift is appreciated. The basal cisterns are patent. No extra- axial fluid collections are identified. The calvarium is intact. Mild mucosal thickening of the right maxillary sinus. The remainder of the paranasal sinuses and mastoid air cells are clear.IMPRESSION: 1. No acute intracranial hemorrhage or acute territorial infarct.2. 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 Old lacunar type infarcts within bilateral basal ganglia and left thalamus, unchanged.This document has been electronically signed by Thien Enriquez MD on 04/06/2021 12:58 PM Name Value Range Interpretation Code Description Data Evelyn rce(s) Supporting Document(s) ID Date Data Source [id number] 04/06/2021 09:27:30 AM EDT [facility] XR CHEST FRONTAL ONLY [id number] RESULTI nterpreted by:ALEKSANDAR SantanaROCEDURE INFORMATION: Exam: XR Chest Exam date and [...] dislocation is seen. IMPRESSION: No acute infiltrate, p neumothorax or pleural effusion is seen. THIS DOCUMENT HAS BEEN ELECTRONICALLY SIGNED BY MOSES HARRIS MDThis document has been electronically signed by Moses Harris MD on 04/06/2021 9:27 AM Name Value Range Interpretation Code Description Data Evelyn rce(s) Supporting Document(s) ID Date Data Source [id number] 04/06/2021 10:11:[facility] Name Value Range Interpretation Code Description Data Evelyn rce(s) Supporting Document(s) Color of Urine [facility] Clarity of Urine [facility] Specific gravity of Urine by Refractometry automated 1.010 1.003 -1.030 [facility] pH of Urine by Automated test strip 5.0 5.0-8.0 [facility] Protein [Mass/volume] in Urine by Automated test strip Neg [facility] Glucose [Mass/volume] in Urine by Automated test strip Neg [facility] Ketones [Mass/volume] in Urine by Automated test strip Neg [facility] Bilirubin.total [Presence] in Urine by Automated test strip Negative [facility] Hemoglobin [Presence] in Urine by Automated test strip Neg [facility] Leukocyte esterase [Presence] in Urine by Automated test strip Negative [facility] Nitrite [Presence] in Urine by Automated test strip Negati [facility] Leukocytes [#/area] in Urine sediment by Automated count 0 -5 [facility] Erythrocytes [#/area] in Urine sediment by Automated count 2 /HPF 0-3 [facility] Bacteria [#/area] in Urine sediment by Automated count Non e [facility] Epithelial cells.squamous [#/area] in Urine sediment by Auto mated count 2 /HPF None [facility] ID Date Data Source [id number] 04/06/2021 09:14:48 AM EDT [facility] Name Value Range Interpretation Code Description Data Evelyn rce(s) Supporting Document(s) Leukocytes [#/volume] in Blood by Automated count 19.3 10*3/uL 4-10 [facility] Erythrocytes [#/volume] in Blood by Automated count 4.33 10*6/uL 4.1- 5.3 [facility] Hemoglobin [Mass/volume] in Blood 12.1 g/dL 11.5-15.5 [facility] Hematocrit [Volume Fraction] of Blood by Automated count 37.8 % 3 6-45 [facility] Erythrocyte mean corpuscular volume [Entitic volume] by Auto mated count 87.4 fL 80-96 [facility] Erythrocyte mean corpuscular hemoglobin [Entitic mass] by Automated count 27.9 pg 27-33 [facility] Erythrocyte mean corpuscular hemoglobin concentration [Mass/volume] by Automated count 31.9 g/dL 32.0-36.0 [facility] width [Ratio] by Automated count 14.0 % 11.5-14.5 [facility] Platelets [#/volume] in Blood by Automated count 363 10*3/uL 150-400 [facility] Differential cell count method - Blood [facility] Neutrophils/100 leukocytes in Blood by Automated count 62 % [facility] Lymphocytes/100 leukocytes in Blood by Automated count 26 % [facility] Monocytes/100 leukocytes in Blood by Automated count 8 % [facility] Eosinophils/100 leukocytes in Blood by Automated count 3 % [facility] Basophils/100 leukocytes in Blood by Automated count 1 % [facility] Neutrophils [#/volume] in Blood by Automated count 12.16 10*3/uL 1.8- 7.0 [facility] Lymphocytes [#/volume] in Blood by Automated count 4.92 10*3/uL 1.2-4 .0 [facility] Monocytes [#/volume] in Blood by Automated count 1.51 10*3/uL 0-0.8 [facility] Eosinophils [#/volume] in Blood by Automated count 0.59 10*3/uL 0-0.5 [facility] Basophils [#/volume] in Blood by Automated count 0.10 10*3/uL 0-0.2 [facility] Nucleated erythrocytes/100 leukocytes [Ratio] in Blood by Automated count 0 /100{WBCs} 0-0 [facility] ID Date Data Source [id number] 04/06/2021 09:04:44 AM EDT [facility] Name Value Range Interpretation Code Description Data Evelyn rce(s) Supporting Document(s) Glucose [Mass/volume] in Capillary blood by Glucometer 204 mg/dL 70- 140 [facility] ID Date Data Source [id number] 04/06/2021 05:38:00 AM EDT [facility] Name Value Range Interpretation Code Description Data Evelyn rce(s) Supporting Document(s) SARS-CoV-2 RNA 2019 nCoV Real-Time RT-PCR: NOT DETECTED [facility] This lab was ordered by [facility] and reported by [facility]. ID Date Data Source [id number] 04/06/2021 06:17:45 AM EDT [facility] Name Value Range Interpretation Code Description Data Evelyn rce(s) Supporting Document(s) Leukocytes [#/volume] in Blood by Automated count 19.2 10*3/uL 4-10 [facility] Erythrocytes [#/volume] in Blood by Automated count 4.97 10*6/uL 4.1- 5.3 [facility] Hemoglobin [Mass/volume] in Blood 13.8 g/dL 11.5-15.5 [facility] Hematocrit [Volume Fraction] of Blood by Automated count 43.2 % 3 6-45 [facility] Erythrocyte mean corpuscular volume [Entitic volume] by Auto mated count 87.1 fL 80-96 [facility] Erythrocyte mean corpuscular hemoglobin [Entitic mass] by Automated count 27.8 pg 27-33 [facility] Erythrocyte mean corpuscular hemoglobin concentration [Mass/volume] by Automated count 31.9 g/dL 32.0-36.0 [facility] distribution width [Ratio] by Automated count 14.4 % 11.5-14.5 [facility] Platelets [#/volume] in Blood by Automated count 393 10*3/uL 150-400 [facility] Differential cell count method - Blood [facility] Neutrophils/100 leukocytes in Blood by Automated count 64 % [facility] Lymphocytes/100 leukocytes in Blood by Automated count 25 % [facility] Monocytes/100 leukocytes in Blood by Automated count 7 % [facility] Eosinophils/100 leukocytes in Blood by Automated count 3 % [facility] Basophils/100 leukocytes in Blood by Automated count 1 % [facility] Neutrophils [#/volume] in Blood by Automated count 12.16 10*3/uL 1.8- 7.0 [facility] Lymphocytes [#/volume] in Blood by Automated count 4.79 10*3/uL 1.2-4 .0 [facility] Monocytes [#/volume] in Blood by Automated count 1.41 10*3/uL 0-0.8 [facility] Eosinophils [#/volume] in Blood by Automated count 0.59 10*3/uL 0-0.5 [facility] Basophils [#/volume] in Blood by Automated count 0.23 10*3/uL 0-0.2 [facility] Nucleated erythrocytes/100 leukocytes [Ratio] in Blood by Automated count 0 /100{WBCs} 0-0 [facility] ID Date Data Source [id number] 04/06/2021 06:31:47 AM [facility] Name Value Range Interpretation Code Description Data Evelyn rce(s) Supporting Document(s) Prothrombin time (PT) 13.5 s 11.6-14.0 [facility] INR in Platelet poor plasma by Coagulation assay 1.07 [facility] Routine intensity oral anticoagulation I NR is typically 2.0-3.0. Target INR must be clinically individualized. ID Date Data Source [id number] 04/06/2021 06:51:02 AM [facility] Value Range Interpretation Code Description Data Evelyn rce(s) Supporting Document(s) Albumin [Mass/volume] in Serum or Plasma by Bromocresol green (BCG) dye binding method 4.2 g/dL 3.5-5.2 [facility] Bilirubin.total [Mass/volume] in Serum or Plasma 0.2 mg/dL <1.2 [facility] Calcium [Mass/volume] in Serum or Plasma 9.9 mg/dL 8.6-10.0 [facility] Chloride [Moles/volume] in Serum or Plasma 101 mmol/L 98-107 [facility] Creatinine [Mass/volume] in Serum or Plasma 1.46 mg/dL 0.50-0.90 [facility] Glucose [Mass/volume] in Serum or Plasma 265 mg/dL 70-140 [facility] Alkaline phosphatase [Enzymatic activity/volume] in Serum or Plasma 110 U/L 35-104 [facility] Potassium [Moles/volume] in Serum or Plasma 4.4 mmol/L 3.4-5.1 [facility] Protein [Mass/volume] in Serum or Plasma 7.7 g/dL 6.4-8.3 [facility] Sodium [Moles/volume] in Serum or Plasma 131 mmol/L 136-145 [facility] Aspartate aminotransferase [Enzymatic activity/volume] in Se rum or Plasma 8 U/L <32 [facility] Urea nitrogen [Mass/volume] in Serum or Plasma 39 mg/dL 6-20 [facility] Osmolality of Serum or Plasma by calculation 291 mosm/kg 275-300 [facility] Creatinine/Urea nitrogen [Mass Ratio] in Serum or Plasma 27 [facility] Bicarbonate [Moles/volume] in Serum 16 mmol/L 22-29 L [facility] Alanine aminotransferase [Enzymatic activity/volume] in Seru m or Plasma 9 U/L <33 [facility] Anion gap 3 in Serum or Plasma 15 mmol/L 8-15 [facility] Glomerular filtration rate/1.73 sq M pre dicted among non-blacks [Volume Rate/Area] in Serum or Plasma by Creatinine-based formula (MDRD) 42 mL/min/1.73m2 >60 [facility] Glomerular filtration rate/1.73 sq M pre dicted among blacks [Volume Rate/Area] in Serum or Plasma by Creatinine-based formula (MDRD) 49 mL/min/1.73m2 >60 [facility] ID Date Data Source [id number] 04/06/2021 06:51:02 AM [facility] Value Range Interpretation Code Description Data Evelyn rce(s) Supporting Document(s) Magnesium [Mass/volume] in Serum or Plasma 1.9 mg/dL 1.6-2.6 [facility] ID Date Data Source [id number] 04/06/2021 06:51:02 AM [facility] Value Range Interpretation Code Description Data Evelyn rce(s) Supporting Document(s) Creatine kinase [Enzymatic activity/volume] in Serum or Plasma 61 U /L 20-180 [facility] ID Date Data Source [id number] 04/06/2021 07:02:07 AM [facility] Value Range Interpretation Code Description Data Evelyn rce(s) Supporting Document(s) Cardiactroponin T pnl SerPlHS 27 ng/L <14 [facility] ID Date Data Source [id number] 04/06/2021 09:30:46 AM [facility] Value Range Interpretation Code Description Data Evelyn rce(s) Supporting Document(s) aPTT in Platelet poor plasma by Coagulation assay 29.9 s 24.0-33. 0 [facility] ID Date Data Source [id number] 04/06/2021 11:13:21 AM [facility] Value Range Interpretation Code Description Data Evelyn rce(s) Supporting Document(s) Cholesterol [Mass/volume] in Serum or Plasma 186 mg/dL <200 [facility] Triglyceride [Mass/volume] in Serum or Plasma 368 mg/dL <150 [facility] Cholesterol in HDL [Mass/volume] in Serum or Plasma 43 mg/dL >50 [facility] Cholesterol in LDL [Mass/volume] in Serum or Plasma by calcu lation 69 mg/dL <100 [facility] Cholesterol in VLDL [Mass/volume] in Serum or Plasma by calc ulation 74 mg/dl 16-42 [facility] Cholesterol non HDL [Mass/volume] in Serum or Plasma 143 mg/dL <130 [facility] ID Date Data Source [id number] 04/06/2021 11:13:21 AM [facility] Value Range Interpretation Code Description Data Evelyn rce(s) Supporting Document(s) Thyrotropin [Units/volume] in Serum or Plasma 1.650 u[IU]/mL 0.270-4. 200 [facility] ID Date Data Source [id number] 04/06/2021 09:11:13 AM [facility] Value Range Interpretation Code Description Data Evelyn rce(s) Supporting Document(s) Hemoglobin A1c/Hemoglobin.total in Blood by HPLC 10.4 % 4.0-6.0 [facility] (NOTE)<5.7% Average risk of diabetes (ADA)5.7-6.4% Increased risk of diabetes(ADA)>/= 6.5% Diagnostic for diabetes(ADA) Glucose mean value [Mass/volume] in Blood Estimated fr om glycated hemoglobin 252 mg/dL <126 [facility] ID Date Data Source [id number] 04/06/2021 07:43:04 AM [facility] Value Range Interpretation Code Description Data Evelyn rce(s) Supporting Document(s) Specimen source [Identifier] of Unspecified specimen [facility] SARS-CoV-2 RNA 2019 nCoV Real-Time RT-PCR: NOT DETECTED [facility] Assay Performed [facility] Patients first test for [facility] 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 [facility] Patient has symptoms related to [facility] When did you start to experience these symptoms [Date and time] [Phen X] [facility] Patient was hospitalized because of this condition [facility] patient was admitted to ICU for condition [facility] Patient resides in a congregate care setting [facility] status [facility] ID Date Data Source [id number] 04/06/2021 07:42:48 AM EDT [facility] Service Cmnt XXX-Imp : NoneRespiratory P CR Panel : PCR ResultsMicroorganism XXX Cult : See Labs Tab for 2019 nCoV RT-PCR resultsHAdV DNA QI LALY+non-probe : Not DetectedHCoV [id number] Nph QI LALY+non-probe : Not DetectedHCoV [id number] Nph QI LALY+non-probe : Not TbdbohueJPgHLD32 RNA Nph QI LALY+non-probe : Not BbszqowfCTwGTZ90 RNA Upper resp QI LALY+probe : Not DetectedhMPV RNA Nph QINAA+non-probe : Not DetectedRV+EV RNA Nph QI LALY+non-probe : Not DetectedFLUAV RNA Nph QI LALY+ non-probe : Not DetectedFLUBV RNA Nph QI LALY+non-probe : Not DetectedHPIV1 RNA NphQINAA+non-probe : Not DetectedHPIV2 RNA Nph QINAA+non-probe : Not DetectedHPVI3 RNA Nph LALY+non-probe : Not DetectedHPIV4 RNA Nph Q LALY+non-probe : Not DetectedRSV RNA Nph Q LALY+non-probe : Not DetectedB pert.PT PrmtNph Q LALY+non-probe : Not DetectedC pneum DNA Nph Q LALY+non-probe : Not DetectedM pneum DNA Nph Q LALY+non-probe : Not DetectedB dynghOM758 DNA Nph LALY+non-probe : Not Detected Name Value Range Interpretation Code Description Data Evelyn rce(s) Supporting Document(s) ID Date Data Source [id number] 04/05/2021 06:18:43 PM EDT [facility] Name Value Range Interpretation Code Description Data Evelyn rce(s) Supporting Document(s) Glucose [Mass/volume] in Capillary blood by Glucometer 374 mg/dL 70- 140 [facility] ID Date Data Source [id number] 03/28/2021 03:12:40 PM EDT [facility] Name Value Range Interpretation Code Description Data Evelyn rce(s) Supporting Document(s) Progress Note [facility] WFAGDw8kZkDHOhUr83/XPFzgORIci9OjBVxnKPq1YVeiZDTlB2MjXPQ9rR6dCBH9ZPvJBfGmLiBmBbK6 lbm [file] 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/E05KfiO5UeErTcOAPdbR1AHJ54G16pQyYA [file] ID Date Data Source [id number] 03/28/2021 03:10:50 PM EDT [facility] Name Value Range Interpretation Code Description Data Evelyn rce(s) Supporting Document(s) Progress Note [facility] YFEWSy6wBzZRTvOr18/QPTeuTJMiw4HuKJnbRNk7GDpmHSKhV8TuZVK2vU4lYRM6VSsUBaVeTfJsDpI3 lbm [file] AgICAgICAgICAgICAgICAgICAgICAgICAgICAgICAgICAgICAgICAgICAgICAgICAgICAgDQogICAgIC AgICAgICAgICAgICAgICAgICAgICAgICAgICAgICAg ICAgICAgICAgICAgICAgICAgICAgICAgICAgICAgICAgICAgICAgICAgICAgICAgICAgICAgICAgICAg ICAgDQogICAgICAgICAgICAgICAgICAgICAgICAgICAgICAgICAgICAgICAgICAgICAgICAgICAgICAg ICAgICAgICAgICAgICAgICAgICAgICAgICAgICAgIC AgICAgICAgICAgICAgDQogICAgICAgICAgICAgICAgICAgICAgICAgICAgICAgICAgICAgICAgICAgIC AgICAgICAgICAgICAgICAgICAgICAgICAgICAgICAgICAgICAgICAgICAgICAgICAgICAgICAgDQogIC AgICAgICAgICAgICAgICAgICAgICAgICAgICAgICAg ICAgICAgICAgICAgICAgICAgICAgICAgICAgICAgICAgICAgICAgICAgICAgICAgICAgICAgICAgICAg ICAgICAgDQogICAgICAgICAgICAgICAgICAgICAgICAgICAgICAgICAgICAgICAgICAgICAgICAgICAg ICAgICAgICAgICAgICAgICAgICAgICAgICAgICAgIC AgICAgICAgICAgICAgICAgDQogICAgICAgICAgICAgICAgICAgICAgICAgICAgICAgICAgICAgICAgIC AgICAgICAgICAgICAgICAgICAgICAgICAgICAgICAgICAgICAgICAgICAgICAgICAgICAgICAgICAgDQ ogICAgICAgICAgICAgICAgICAgICAgICAgICAgICAg ICAgICAgICAgICAgICAgICAgICAgICAgICAgICAgICAgICAgICAgICAgICAgICAgICAgICAgICAgICAg ICAgICAgICAgDQogICAgICAgICAgICAgICAgICAgICAgICAgICAgICAgICAgICAgICAgICAgICAgICAg ICAgICAgICAgICAgICAgICAgICAgICAgICAgICAgIC AgICAgICAgICAgICAgICAgICAgDQogICAgICAgICAgICAgICAgICAgICAgICAgICAgICAgICAgICAgIC AgICAgICAgICAgICAgICAgICAgICAgICAgICAgICAgICAgICAgICAgICAgICAgICAgICAgICAgICAgIC QyMPp3E7ogLAFpQUImMN0yPXo7Mp8+DQoNCmVuZHN0 dpMpuB1BYX0xg8CjOGylFWWnc5DuVCw5HF8ETUPlYZbhER2HIZhmmm2AFDDkXYFzvFBZl6qlScIyNDC0 JQFzSufzKH1GZDBjV9nwnyGqGEXaPRHDATjxMIPPHJ7ZAbXkE7CkeC02BAIDMc0+DQplbmRvYmoNCjI0 WSFbz8HhWZo1TL6FEIBeZwtwj0XmDeDmISTVOYevDK 4OCGI7TUU9AQRtGi9NOEMiZ823kqXkRR1APx4RUlSeIT4crp0MBlAaKGZpAccXPok2ILytYU6FoGXbAC pHjk2nygXekoJDg9HmjxDyzCDGs1DxrL5qNYcrv3DbrZjyBBJqSOAxVp6bMT0wZQRzJNVlAxAnXJVCXA 0AJTVtVSJmgLBeOCMrQEFIUF6SIJfuOZB3PIRsuaJa jKOcYGqfCC7NJCCnbtHnGaSwLZMJVOx+Wa4MAG6wc1UsSOpiPfOtMI8scf6EDKkWZcDyI6P4nFZqG3A9 NBwpAr8AYRKyBMKcHmFbEAHLTZiuUK3ECY8fplQ2XU4XqNGrMRPdMZHpqWPoCBa1R24eoQXkNJxdZV0M ICA+Lobo+Xw6JOEUeLAXqBSPvUyEvFTEQUkJlO8NcE6 CWl8DcE2LcCO46kFmqeaSuAVurSR9FAX8hQCPxACZUMR3OqXAwkP5aesAsCEJoPJZNFuDnX05mhCEdBD IcKBHbTBYhTu7JVLAbH0BzrlJqoCuvqwOmAGAvXEHWEG2ZAHxfhkXkhZOjuQowPT94qPzfWX6CCj0UUk BjWJ5qxa6OaSLsWk9OZQKgIb3CGYDbCOZgDAFpNLU0 SBYkMcJvFOrjYYLyASOsVMM5DVOfUVIvHS4QUaHuEMOcBzG6HtLmOVJrFFVffq5VBPMwPKFpVGK1YdUg KHPsIKMjNYxkDUQjILZyFAO0YQSnVRSpJY1EPhBnZSFxMTZjCWkfJFNlXVOhki6IDYSvOIEcHgH8QnPv AJQdAHQhLLyzCDKqUXG5OsQ4BFOeRUEuDK2BWcHrFX RaJZH9VFReXAVeZKJecx4KFHEmKVWvEkKeGjTkPVNbYFMdOGeaDVLgFYJ8FhN2LMHyGLLdOU1KGoJnGC MeDSv8ASxeBXFsFTThcp4SYOEtEKXfZNb2MHYhKSCrLPCcNLuzYMCrUEZ8XRRlARKnPOWiYQ6VJzHsMO NyGDscCjtoCAThHWQnda5GAUAfZEKpCLE3JcFuUFIb IIEqBVsjEAQxRROsLPX0QBEnSYOiDG1LTvCfBANyTdOvJObxKSIsIKAjmo2BTLNeVMJqOLQ5SPDzCHTe MWEhGYlaZHSdNEZxEXA3EHLiNWDgGM7NHnWzPMKfSjF6HSyyYWBwJDObsl9JGGNsRBUpDjGeEBGzJEQe NYQsFWcnELVoRMLgMRThLONmELYoSP8MNaOrCZShDy HrGWjuVPGeBDJmyk8TVALxGSKlIQY9RCMvSGPcEZTkLTadWQGmVSZ2CeMwKWBdDMXcDG8ZTiVwFKShLg Y5JNUnJSWjVDEkrb1FdNLruEbpvv0EQVrSVx1WeSxpVOK9CVkfYh6onRZeHdUjDYBZOt6PcvGmPDTbCV WCIFwtWDIaSFklXGPnDgTqGLNrGWUqRQAiF7V5LMjg LuF9NSW7CWTfGaZ2DoZ0MMV0EnN2YnJ6JMDqWNM8CMNgLPCgEBYfBCp7ZHZ+UQ4aFBq+Ag6Qn1HfcgV6 caGsLPcgSLYxNO0DSVQHM3TSXi== ID Date Data Source [id number] 03/28/2021 03:08:04 PM EDT [facility] Name Value Range Interpretation Code Description Data Evelyn rce(s) Supporting Document(s) Progress Note [facility] HEBGHk2lZsDFYfOh24/UEHmiTMFjy8PlPKfwZVz9LRcjXTOhS4TfVDN5mP8wQQO2VPjTVsMpOoVeAwY5 lbm [file] AgICAgICAgICAgICAgICAgICAgICAgICAgICAgICAg ICAgICAgICAgICAgICAgICAgICAgICAgICAgICAgICAgICAgICAgICAgICAgICAgICAgICAgICAgICAg DQogICAgICAgICAgICAgICAgICAgICAgICAgICAgICAgICAgICAgICAgICAgICAgICAgICAgICAgICAg ICAgICAgICAgICAgICAgICAgICAgICAgICAgICAgIC AgICAgICAgICAgDQogICAgICAgICAgICAgICAgICAgICAgICAgICAgICAgICAgICAgICAgICAgICAgIC AgICAgICAgICAgICAgICAgICAgICAgICAgICAgICAgICAgICAgICAgICAgICAgICAgICAgDQogICAgIC AgICAgICAgICAgICAgICAgICAgICAgICAgICAgICAg ICAgICAgICAgICAgICAgICAgICAgICAgICAgICAgICAgICAgICAgICAgICAgICAgICAgICAgICAgICAg ICAgDQogICAgICAgICAgICAgICAgICAgICAgICAgICAgICAgICAgICAgICAgICAgICAgICAgICAgICAg ICAgICAgICAgICAgICAgICAgICAgICAgICAgICAgIC AgICAgICAgICAgICAgDQogICAgICAgICAgICAgICAgICAgICAgICAgICAgICAgICAgICAgICAgICAgIC AgICAgICAgICAgICAgICAgICAgICAgICAgICAgICAgICAgICAgICAgICAgICAgICAgICAgICAgDQogIC AgICAgICAgICAgICAgICAgICAgICAgICAgICAgICAg ICAgICAgICAgICAgICAgICAgICAgICAgICAgICAgICAgICAgICAgICAgICAgICAgICAgICAgICAgICAg ICAgICAgDQogICAgICAgICAgICAgICAgICAgICAgICAgICAgICAgICAgICAgICAgICAgICAgICAgICAg ICAgICAgICAgICAgICAgICAgICAgICAgICAgICAgIC AgICAgICAgICAgICAgICAgDQogICAgICAgICAgICAgICAgICAgICAgICAgICAgICAgICAgICAgICAgIC AgICAgICAgICAgICAgICAgICAgICAgICAgICAgICAgICAgICAgICAgICAgICAgICAgICAgICAgICAgDQ ogICAgICAgICAgICAgICAgICAgICAgICAgICAgICAg ICAgICAgICAgICAgICAgICAgICAgICAgICAgICAgICAgICAgICAgICAgICAgICAgICAgICAgICAgICAg PAEoFSBbMHPyXVn2J5irIBRhLGFwWS1qSZq1My4+UExWTqTqEUE6mwUcpX8QMT5by8DeXPxvFQJgz0Dx GBo4QG7ALVSaPOxwMU0UXZeudw5EGXGeRGCptOMSj2 liHxMzZDN3WRJvQebdYB3OEUWdW1nhghQfRSJdLLHBTWbcIWTWAE8QFxBpB0YvaI40HLSNIn1+DQplbm FvHvhQIsDmCNBwu0OfGOq7ZF5MKQYoBruzi2TrJrKdFIGYHAjiTH8BCCP1UZHnMFZnJd6ZYOYzK689nh ZoVT9FQa8RYfByBF7nyk6JGhObPNMpPafVUvo5MMcg ZU9YzDYkAMqXep1yxpGzbvJHa9UfszGcpLQMf7QauL6pJNkeq5XzaOesPRMdEONpLt4eGR4bBVTvMXZv YlHeSFFDXM5AWZOeSPVsbOHxGSKzVXYURF7GFIkvELR6LXNvltWrlNPfIGpyMU2LNFBxgdTvYgGcPAUE DQo+Hq6KJQ5ud4JmKTqvEnHcQD0hwr1INSbKTaIfR4 V1qFVtN8U7EAleCy9OXSUiTEWbSDyxVWOPUZopAB0YDV2gqyX7YQ8DbYCsQVKqXYFzcZMyOMp0Y24fmQ KcEUtqQR8KWGC+Lobo+Dn0EZFLeMBVjSDIyXjGzNIOSDjZdL8GbW0CNi7NmK3EiVP68jUahplZeHVyqWX 8HPQ8cHKAzOYTGWB1FsPHtzB6xprArVYVmQTRTSwMl U01arYXuBRFgAQFhGQDyXq3ROSKjK0VgglFqlYvvspWjVJHsOCHHCP6MNCuxjeCzxJAjsEccMQ30gDzh AH2MCo9RBoRuOR0lhw4ClQKePr0NGROsXR0RNNTdIQJrLTLhOQE3JUJrBiQtFGmeVMJqFPTtILO3BFNs OPObWL4KIcMzMCHxYmC8MaViHQNtNBCeam8DRMThVD EsPiV6WGRiZRXdPQJeWLnbJQVgYJHoOFC8KHJbEAVvJG8JPpPlLNVuDVKtEcivCCNqNGNicq1VCNKtJU PoEIA6BOGjECEdUFAjCFrtGFPcHZQ4ZdN1WTXsWVTzDH7QEmTuWKHuZAK4NDebPIRkCWWywf5JQLUdJO YjSoKvMCYeLAIiDGShFScpAKQzWJP6QfL4SDRjZTHf AY9QAkSyEPSbEXl9VNCzNCZpQEFwqa7QREJlXCPpRCf7ZXAoCRLsOEQzECguMGMxXKW9FAG7TOGpOZYu DZ2HZkKdKURcNGdoMeBnWFAmZNXbcq5ENXHsCQZtOJK5EENlLPUpMLGkVIaxWZJzEAEqJZF6SVBiSFXn FZ7MXmWcTDRaXzLkNEVaODOhIJBxmk7ISCUcWXMnHP B2UWUcOIShEUWlICsvSFCaEYMfFYZzZBExAFCyCX0PRuYdEEOwGtE5JPEtQMIgNVWasq2RNHTjYXOvCp C0FYMxEJVwGEWyJJzgDHOhXWXgGwI3OZYoGRWeRB9LYdEvRZWxNnN4XtOyVQHxRNFrvw8TuACiwWohkq 1DPIwRNf7NwUukQXN3VFlrWc6nzYSkOaMpNJOOHz2W xeJxNXHdBALSWMgzWGBvABLsQKSeKTWdC6IxADp9SOTrMgXvU4EgJYYeApMiFVU5CpE4JKP4BdVkKDQa FORnJuRdYXTfWZYrJuP8JbPmLtF6YTp+ZP5pWQs+As9Bb0MqdwW9vbQxUIaxJrumYC8NLETXF4SAFn== ID Date Data Source [id number] 03/15/2021 09:28:22 AM [facility] MR LUMBAR SPINE WITHOUT CONTRAST [id number] NAL RESULTInterpreted by:CHARLENE Bang03/14/2021 11:04 AM MR LUMBAR SPINE WITHOUT CONTRAST [id number] CLINICAL INFORMATION: L4-5 radiculopathy on the right, L5-S1 on the left on EMG, has episodes where her legs are going give out. ADDITIONAL CLINICAL INFORMATION: None.TECHNIQUE: Multiplanar multi-sequential imaging of the lumbosacral spine was performed without intravenous contrast.COMPARISON: None.FINDINGS: For the purpose of this report, the lowest complete disk space is L5/S1. Lumbar lordosis is present. The vertebrae are normal in alignment. Probably trace, 1 mm posterior Listhesis of L5 on S1 is present. The vertebral bodies are normal in height. Age-appropriate fatty marrow changes are observed. Small Schmorl's nodes are present at multiple levels from T10-T11 to L4-L5 level. Small edema is present in subcutaneous tissue posteriorly, almost a normal finding.CONUS MEDULLARIS: The conus medullaris is normal in morphology and terminates at T12- L1.INDIVIDUAL LEVELS:T12-L1: No disc herniation, spinal stenosis or foraminal narrowing.L1-L2: No disc herniation, spinal stenosis or foraminal narrowing.L2- L3: No disc herniation, spinal stenosis or foraminal narrowing.L3-L4: No disc herniation, spinal stenosis or foraminal narrowing.L4-5: No disc herniation, spinal stenosis or foraminal narrowing.L5-S1: No disc herniation, spinal sten osis or foraminal narrowing. Early degenerative changes in facet joint is present.OTHER: There are some degenerative changes in the SI joints.IMPRESSION:Largely unremarkable MR study of lumbar spine except early degenerative changes. In particular there is no significant spinal canal or foraminal stenosis or disc protrusion identified.There is no nerve root compression.This document has been electronically signed by CHARLENE Bang on 03/15/2021 9:26 AM Name Value Range Interpretation Code Description Data Evelyn rce(s) Supporting Document(s) ID Date Data Source [id number] 02/14/2021 07:58:46 PM T [facility] Name Value Range Interpretation Code Description Data [facility] rce(s) Supporting Document(s) Progress Note [facility] VIXATg8pTgTJMgFz81/KQFsfXYJhu4QfOQflAQj2TVhoFKPpV2IaXDW8qS6tVSV1CDdSQeQlQfQgEzX8 [facility] [file] T7DsQgMkN4WGU4XBAdJyJkTuHbIY6GVq0KHkH6VOL0xUBfLf9FEol8KuCGFwIvYB4JDVl= ID Date Data Source [id number] 02/06/2021 10:05:36 AM EDT [facility] Name Value Range Interpretation Code Description Data Evelyn rce(s) Supporting Document(s) Progress Note [facility] CZFIUs7wGzUWFfMo44/AOJcdDCVyt5CsYHlrYGq0WExkNFKmG8OkMMU9aY5eVWM4UNlZWlNkFeSnKbD3 lbm [file] ICAgICAgICAgICAgICAgICAgICAgICAgICAgICAgIC AgICAgICAgICAgICAgICAgICAgICAgICAgICANCiAgICAgICAgICAgICAgICAgICAgICAgICAgICAgIC AgICAgICAgICAgICAgICAgICAgICAgICAgICAgICAgICAgICAgICAgICAgICAgICAgICAgICAgICAgIC AgICAgICAgICANCiAgICAgICAgICAgICAgICAgICAg ICAgICAgICAgICAgICAgICAgICAgICAgICAgICAgICAgICAgICAgICAgICAgICAgICAgICAgICAgICAg ICAgICAgICAgICAgICAgICAgICANCiAgICAgICAgICAgICAgICAgICAgICAgICAgICAgICAgICAgICAg ICAgICAgICAgICAgICAgICAgICAgICAgICAgICAgIC AgICAgICAgICAgICAgICAgICAgICAgICAgICAgICANCiAgICAgICAgICAgICAgICAgICAgICAgICAgIC AgICAgICAgICAgICAgICAgICAgICAgICAgICAgICAgICAgICAgICAgICAgICAgICAgICAgICAgICAgIC AgICAgICAgICAgICANCiAgICAgICAgICAgICAgICAg ICAgICAgICAgICAgICAgICAgICAgICAgICAgICAgICAgICAgICAgICAgICAgICAgICAgICAgICAgICAg ICAgICAgICAgICAgICAgICAgICAgICANCiAgICAgICAgICAgICAgICAgICAgICAgICAgICAgICAgICAg ICAgICAgICAgICAgICAgICAgICAgICAgICAgICAgIC AgICAgICAgICAgICAgICAgICAgICAgICAgICAgICAgICANCiAgICAgICAgICAgICAgICAgICAgICAgIC AgICAgICAgICAgICAgICAgICAgICAgICAgICAgICAgICAgICAgICAgICAgICAgICAgICAgICAgICAgIC AgICAgICAgICAgICAgICANCiAgICAgICAgICAgICAg ICAgICAgICAgICAgICAgICAgICAgICAgICAgICAgICAgICAgICAgICAgICAgICAgICAgICAgICAgICAg ICAgICAgICAgICAgICAgICAgICAgICAgICANCiAgICAgICAgICAgICAgICAgICAgICAgICAgICAgICAg ICAgICAgICAgICAgICAgICAgICAgICAgICAgICAgIC AgICAgICAgICAgICAgICAgICAgICAgICAgICAgICAgICAgICANCjw/lJDhI4kdsNAkctD4B4xcAg2TJi 1ZYN5yh2UtWCJpBCrfdfSaJgqBUaFdKINlSybTKph9XPzqMR4LbOOcQ4QjG2JmXDbxET5QYWYrCENrhW FoQJRfJSMwDpB0YDMtUWfjDE2EcOMxZYjcSSRpWZHg FfJoMSOiFTDfRHFgBPJwPKEQMT2LMnHhR6HneV00JZIICe5+LRhbumQfOvnVQwKxWPPos7ReXDr9GS4X JRCtEvyrw4JvQzUxNKJGXKhlNT5LIAV9SPE6GBGfSg3FMZRhJ670bxRuVJ6EHc2TCoUuNC8xya8DTnQq ZCCwDteUHcn4ZYtuJC0BsBZuTJyEkf7znbDzzaSUe1 AtulPmiWPFcp9zZZHfO3qgN6vxUJ1KWDR3LWEkPL0yRDIbDDV3RvTdRJTKMY4YNHHqRVMgfOYpSAZdJI BXFJ2JVDgzOAV9KEGsrbJusPDfKScaUK3YKXBamnJsJqCsOEDYSMp+Sn7PGO4lg6VcUAtuQULjMZ0onw 9DHYrUFnYhI7E3cOIuI0D8AKvyCd5YENKiCETrOqGr GXDAAHprNB3TKZ7jfcT4UW0TcJWxLVShPDKopMYdHVs0V59evKNuVCjfDY4JFGC+Lobo+Iw1UWENwOYUm KKGqGxVxIKVGUjHoX0JaS9AJg7SmD2QkCI36sWkuelDkQLijIS1MFD7rYORpSUBAPA4CxGYphV8qbuLt RjUmRKAFFsUwC72gnKThIYZpBARfFMHoOf3EVWDyT5 SxalFciNmlmxJbDTElOGLYRB2WRTbogyKyqFJbfPgzEG39tWexQF5TBh4PVjNoLU8rfe4PyKEwIu8URJ YeOs3BLQRyYWFkEPIgPVR6QYWzTbNuCKmqSCMaPMUlSGG8STYvKGDiLX6AHpQsSBVmFEFfXTQmAHIvYQ Apif7FRWUqTAX9Gur2WCEzMMQaSLRcKUahUSZoUFVj ZZZ6YIJyCBZiFI2QXkZqRIHkNMJ9QwCtHZVjXKOxyn8XEUXfFGTcBPL2IVAjQLLqNIEkLExjSWZoKYR8 CMp9DBNwMVUoYL1FJlFxWTRwOUz6UJWhDILbFPYenk6CPWJjYPUoUQP8EKNdOPTrOKGnQXacLQKhLRLp NhV9VKCzTAZqKK8MRrCqAPIaYAZkOILqCZHyDVBthd 0JFQWlXZYuBdF8BfGtIFTvHIZpZBqdVTFhQPTnBSX3TLZsIIVrRP7KAiWsLJTaUIL3QONrZMUtDNDtwy 2IIDKbEGFmOeqfSfBhCHEuWUXeRPwpUJFkYXJ3Ziu9WJAvJEIeTW0NVrClEBXyAPR0YCgoDPMsUSCold 8QGKZoXYFcVHT6CjKwVJHrDOZdVPvmPYRoJNE9XcR9 QXZjZSZgBP0NXrShJMBgLxQ5RyJcPWKqHSOgjs9WCLVmHKHhHxM2KECoRUZbCAQjTAheESAjLNO6Lhxh AYUzOIUuTK8HEmHxVLFkBlp2YbQyZZPaMCFjft6NZARpGDHtKEG4LOUwYCNpMWNwVGxoNBYlVZB0Eimt CKLpEATrVD7IMcCeFELzQlj2CKsqVMAsZAJdmg3REG ZvKPQ6PGO5DBFhPKFcPTBoPZanDPGsMJNgGHsoKYSoZHEwLY0KApAfIEFyOKT7KLOdSIEzAMAjel6BMB PdKPC1UPx6ONOrXWJtJTJcAPaxFWLhMOFmKRqrNQKgFBLhSD2KMyMyGZVfIZW6DhYkIFHgXIQesj9PBQ IbIUT1Ooe6OYZuPMAgYGQqJVwwQJBvSRO4AQBrHXYb TZElXT7WNqJvKTQcLRUkSJiuSBVlNNVfqt5WzVGzyRflej0YOPzIGl5WhFirJJL1NKujLy9ttLTdRBZg TZDRSs0MxzJaSSJmZVADCMccZJOjMKQbXsG4KAJkVYA7LEIjSVXlXnSuZkV3XMbeCwY4V6EkSxP3JoG9 Xlk1AaA5MOgzCFD7VWUlKnGyHLRfH8HvHSz0QLY+IF 0gDQo+Lp7Tf6OpcfY7caZuCGd7HMN7Fm4DNLQFJ5BDTe== ID Date Data Source [id number] 01/31/2021 03:10:10 PM EDT [facility] Name Value Range Interpretation Code Description Data Evelyn rce(s) Supporting Document(s) Progress Note [facility] ZSBFOy6rKyAUIbOu84/XOIvmOWOcm4VhTSpzUGr4EQjhMVGpB9VoOCX1lC0hNFK5YUdWCvFtFiCxYaKl lbm [file] ICAgICAgICAgICAgICAgICAgICAgICAgICAgICAgICAgICAgICAgICAgICAgICAgICAgICAgICAgICAg ICAgICAgICAgDQogICAgICAgICAgICAgICAgICAgIC AgICAgICAgICAgICAgICAgICAgICAgICAgICAgICAgICAgICAgICAgICAgICAgICAgICAgICAgICAgIC AgICAgICAgICAgICAgICAgICAgDQogICAgICAgICAgICAgICAgICAgICAgICAgICAgICAgICAgICAgIC AgICAgICAgICAgICAgICAgICAgICAgICAgICAgICAg ICAgICAgICAgICAgICAgICAgICAgICAgICAgICAgDQogICAgICAgICAgICAgICAgICAgICAgICAgICAg ICAgICAgICAgICAgICAgICAgICAgICAgICAgICAgICAgICAgICAgICAgICAgICAgICAgICAgICAgICAg ICAgICAgICAgICAgDQogICAgICAgICAgICAgICAgIC AgICAgICAgICAgICAgICAgICAgICAgICAgICAgICAgICAgICAgICAgICAgICAgICAgICAgICAgICAgIC AgICAgICAgICAgICAgICAgICAgICAgDQogICAgICAgICAgICAgICAgICAgICAgICAgICAgICAgICAgIC AgICAgICAgICAgICAgICAgICAgICAgICAgICAgICAg ICAgICAgICAgICAgICAgICAgICAgICAgICAgICAgICAgDQogICAgICAgICAgICAgICAgICAgICAgICAg ICAgICAgICAgICAgICAgICAgICAgICAgICAgICAgICAgICAgICAgICAgICAgICAgICAgICAgICAgICAg ICAgICAgICAgICAgICAgDQogICAgICAgICAgICAgIC AgICAgICAgICAgICAgICAgICAgICAgICAgICAgICAgICAgICAgICAgICAgICAgICAgICAgICAgICAgIC AgICAgICAgICAgICAgICAgICAgICAgICAgDQogICAgICAgICAgICAgICAgICAgICAgICAgICAgICAgIC AgICAgICAgICAgICAgICAgICAgICAgICAgICAgICAg ICAgICAgICAgICAgICAgICAgICAgICAgICAgICAgICAgICAgDQogICAgICAgICAgICAgICAgICAgICAg ICAgICAgICAgICAgICAgICAgICAgICAgICAgICAgICAgICAgICAgICAgICAgICAgICAgICAgICAgICAg BNLdHYPzJJIaGUWqAUKiXFAfSBl2V7kxHWNsYYFlOJ 4tUVe4Gs9+LDxYEnQpRLZ1abHxiO4FAU4mp8YvCGdhSHAqd7GdLNf6GY2UYSMyHFueJR7VENfweu6SMU DkAFEixAWQu5ytJwKmQWB9CUEcZfkyDI5ONVNeH8ilivIdKODbHAOCWWzhDJTEFLkoBCZAARQgQWLgDq RtFeKaCPEoCOGlRUCULXJ9YBCqJjGhXTWaVKTxGkIx WFLKEL9SJtFvC5FjlT08RKkKTe4+DWyhmlTpKirGIoU4LESuw0VgQXn3SP7RTQYdZubjq5JyVywgFOGE DAnjHB8PXBM4CVP8PDYkHp5JSNSjN301mbDrHF0VPv7FBcPmLF9zly2JBtneOVRrBclIZnz1RBvaCP3G nWEaWJdChj2dzpJoylKEu8LqsmCivSZLKE8ftWAJYL 1jlOCdTYOTQYHdfVR8NaFzWdKsLRKhSXi0JJABMNoXHyVxE8Mdq3NcGqG0RPYvNkRgOLhpYRRyAyI5BM 16hTfrRG5SQKIdLNBuLM60CPT1DKKwPb1BWk0BVnGuME7kkz8WHKDuGWEoFruRTev3MHrsBS0UxWBfF6 JxtXPeh0aMNvEkA7GKJKH5ARWcTl9HRBWyBeHzYNAs PHoyLI4vXEPmFNXWxOgaakF7FJ7XGU5wsmFrAP6QXoHaBs9kLn4ETbOqV4MeB1XbMYSrBLCTAMlzNI7M DZxdGX4eQU7Zg4RXbZDbjM3seg0FBFBoKXGhHauhpy1HKuknG2Q8eChyKSPjOqtuRXAIFQmwDY0OIUSt TKI5HUWsXlUrBPSJXlPjA26pAV5ZW4Njd47hLuJ9KH ZpUsPcGWztRP58rNlgelOpoKRpvRkoDK9XGf3+DQplbmRvYmoNCnhyZWYNCjAgNDENCjAwMDAwMDAwMD UuKmK9RbUyHw1GSOAuFFQcXUViCnFmTCOtKHBvQYkuGWWqKKV2ZGC6OJMcJTAlFY7ICyYuVMFpYId3Er PlKKNbTCHkqz9DGSMeADPiSNU0SdFdVMAvZERqFAyu XWMoQPG4EjygIPCxQLPzOM4PPhHqRWUlMFL8DLkzXIKwWCXczq3ZLTHmBHWmBVW4YZMeHGCoLPFuULvh NLXiSCD2ZmesAPNtFHDsUG5MTrIwADNkRMC0ThcyGKBrEGQzzy4ITVNiBIUbBPr4HnVaBEQlTWWtBOal DCEiUEM8WODwEJAjPZHyPL3HXjHsMWNyDCNoEjfkPW KbSYTtun8EQKVrDRVaWCPbDzVvZAQuFGOnHUseCXDgNTK5FkI1RWXhNOHoNU7SQhWgMKMeBqMpVhAdVY KpSVWzll4TXLBwXVLpSTUyFBKtUHUgPKEfUXjaUHKqCRG9YDJhPAUuNCLsHB0ACeUyQHOdFtU2GldcUP ImRJMboj2TUPXhHOSdDIMlRTHbQDBeYDZzGGmsAYLf KBX9FBC6CJUiMWOhZL1NPuUoTARqRmVtARKgQPYxBMSabl2BFNJxXOWgLES6CdLsSMOzSQYxWYzuSWKt QNSpTBY0HFKgZVHrJS2DZyZaIUCvNuS9LZAjUBIpRQOmva4LXUMrNTDoNHy8CzZoQAEoCEPwVAfyQQVz CUZuUEZ0EHIiQJKvVF1AJbGiWTEcSiXxDXrfMAEaGD Wseh3IHKVoVKZjOjAhTTAeAVSpIKDnMMjkIKWaCQM0StU2SHQmLGLuBB3LUiCmEOMvVLW8NMItQVGbND Rxep8AEUIlUQZ9VSF4EREmXJZiQPZgNCpeYQJnOGQ2IJH4GSClTVZsZB7FGiShFAYjWOQ4MQUiOWCbPU Chgw4DLWLmSTH2IeTxXXOiJNNlBLDmKGjuYKMnYSA2 LrU0SCGrKFNnES6KMuJlQJTiEDO1ZSUiZBKzSDEszp7CFXQtPLC8JvCoCoPsFVSfBIArJQpcTBUkLQU1 SMG2FDEtJBRiTG8UNrUbMFHdUWs4IUAmNAAhPHXelj9NWPVoEYH2YFSdPbUtMZCcRMHaFHi8ofLvsWVx NOc4QM4UQ5QfebByIWIOYc8Ge119WLObNIEbAq9FG7 suUo7uXDWgOKEZSp0XUVz0ExJiEiC7DlCaMGIxReFlMcO2DgN9BEQdYMD3ECQuOPA+RMm4GMZqKBZeN8 E2PcQzJcYeZqtkVmB3BjF5QfmkNtWdTY7lYBEHXu5+SUisnVKnfZviVNZNDbX4Fzv0ROhlQZBZWs8J ID Date Data Source [id number] 01/03/2021 02:35:00 PM EDT [facility] ([facility]) Name Value Range Interpretation Code Description Data Evelyn rce(s) Supporting Document(s) Glucose [Mass/volume] in Serum or Plasma 330 [facility] ([facility]) Hemoglobin A1c/Hemoglobin.total in Blood 11.4 [facility] ([facility]) ID Date Data Source [id number] 12/27/2020 04:23:29 PM EDT [facility] Name Value Range Interpretation Code Description Data Evelyn rce(s) Supporting Document(s) Progress Note [facility] OHDSYe2rOkQSHaXm48/ZHQodQNXrn8RvXZrbKCr4OXnkZMWmY6ZcDKS3rY4mLLO1YUeCJqRfFbBvGIS0 lbm [file] DQogICAgICAgICAgICAgICAgICAgICAgICAgICAgIC AgICAgICAgICAgICAgICAgICAgICAgICAgICAgICAgICAgICAgICAgICAgICAgICAgICAgICAgICAgIC AgICAgICAgICAgDQogICAgICAgICAgICAgICAgICAgICAgICAgICAgICAgICAgICAgICAgICAgICAgIC AgICAgICAgICAgICAgICAgICAgICAgICAgICAgICAg ICAgICAgICAgICAgICAgICAgICAgDQogICAgICAgICAgICAgICAgICAgICAgICAgICAgICAgICAgICAg ICAgICAgICAgICAgICAgICAgICAgICAgICAgICAgICAgICAgICAgICAgICAgICAgICAgICAgICAgICAg ICAgDQogICAgICAgICAgICAgICAgICAgICAgICAgIC AgICAgICAgICAgICAgICAgICAgICAgICAgICAgICAgICAgICAgICAgICAgICAgICAgICAgICAgICAgIC AgICAgICAgICAgICAgDQogICAgICAgICAgICAgICAgICAgICAgICAgICAgICAgICAgICAgICAgICAgIC AgICAgICAgICAgICAgICAgICAgICAgICAgICAgICAg ICAgICAgICAgICAgICAgICAgICAgICAgDQogICAgICAgICAgICAgICAgICAgICAgICAgICAgICAgICAg ICAgICAgICAgICAgICAgICAgICAgICAgICAgICAgICAgICAgICAgICAgICAgICAgICAgICAgICAgICAg ICAgICAgDQogICAgICAgICAgICAgICAgICAgICAgIC AgICAgICAgICAgICAgICAgICAgICAgICAgICAgICAgICAgICAgICAgICAgICAgICAgICAgICAgICAgIC AgICAgICAgICAgICAgICAgDQogICAgICAgICAgICAgICAgICAgICAgICAgICAgICAgICAgICAgICAgIC AgICAgICAgICAgICAgICAgICAgICAgICAgICAgICAg ICAgICAgICAgICAgICAgICAgICAgICAgICAgDQogICAgICAgICAgICAgICAgICAgICAgICAgICAgICAg ICAgICAgICAgICAgICAgICAgICAgICAgICAgICAgICAgICAgICAgICAgICAgICAgICAgICAgICAgICAg ICAgICAgICAgDQogICAgICAgICAgICAgICAgICAgIC AgICAgICAgICAgICAgICAgICAgICAgICAgICAgICAgICAgICAgICAgICAgICAgICAgICAgICAgICAgIC SzLSTqWEMeIOUvJXSiEXJmWIKhGIh0G4qyNURiRDFhEU2pCGn1Ho2+WJuSWyFcFUJ6kkIkuR6BHN9tu5 WoAZmaCZWco9FsXMk4MC5TFGSpQXjmGS0HSPklub8C HCRyJAQcnYBYz8pwSeBkJFS1YMQkCzdjBG7BXKBkS1wmsgVnWFUwQFOPVDzwKMIONU1EGlLeX1ZzpO71 IDINCj4+QItdgkElYxmPZxQiIYQhh8BqMFk8VU0GWKVbVoxbb3KfYrTlGMKBUPqoAX6ZXYR6QNSlSQSb Zt0HCASiJ255kdPpRS8LHh5ZVdAdSO5fmq0UEcOvVV IdBhuEJvv9BShaWI5JfVClPCyPsx6vliLpjsIVk2PvbjOzsJOAj3KynZ9wIUanx3McsDbsEZRhIJBiAY 5rVK7zNAByFFEnRxDuBENPUO6VFXBeTWLkfSElGJYiCDXZWU1FSJfnEZJ3FONutdHrkQGbNGulDK9BMB JlbnQgMjEgMCBSDQo+Ix8UJQ5dp5FlHYosOeMkTB6t li2XFDvZWiAbB5M0vZSdG8Q6OKsnNy2BPHKpCJAbJCpxMIIXGQauTS4XPJ8ejbN4EO7BaQPhKOQbCGTl aNZfMWd6R57roJMtIIxhWD2ISVH+Lobo+Uj5SXDVmAIEbAGMmZzXpALRYNgAeW2IeN4VAf4ErP9GcWU29 eNxsxtPnSGuiXG3TWK3jAIDdTFFWGJ9EaPKyxL1fgu OkOGAsDTPUZcNrL24wdUKuLDLwJGYhKBKrEg0CIWSyX4JqceMwkUqrieEgVRUlDQWCIX5AKVpyisQciH CelPfzCD23zLwqRI7SJz3BNaWwCZ4gzo8KiEPjVw0DDJMwDU1SYZIaJXTxKDLzQZD3ARCzArJjSZrnPG JdYEBbHTH5LRNpQKEdQG2AKbWkLZMxJpC6CHIdVJSt RHKxfn6ZJIMhQWReChEqXwMpGEJgEHRbBQeaGRPuUMDzUMG7SEQuFNExBS0OGbGcBJAaHMAaZmPzDDAi FEQxsc8REGFhWTWtPZR8RjRoCLVfLODhSXwoBNMpNTP5YVV9TLSiZREmMC9BSuRbGEReIAW8APCcHNTp YHSkgu9YFXClUNJxFmG4JSQeCSTuVVZtYAckXBFmRP K7MrR2RPCbLHKyPP1RVjYbXHRgOCq9JGckTNKwLCAkcp3FZWHgUUDnGLxfKtYxMMYiEFZeQDwbLVHlVR P2CUL3RKKqZSKaWB1JBnIuNZKiGJgpKWRrEEWrWYSoly1NCAYnYKZlHHM3NJWsXDNfZEAsDLhfIQHsNT ThADX7PNYpJECyET3FWcSvAOJyLnFbZwAaZQEpRFQo uo5WVURpAETcJOSoFuCbPFHhBHRbEBpgUMLjCDJoHHDvHXYeVQDfJI9PDcLlQULdUkO8XqXeASKaYQYm cj0QQUDcOVIdRxWeBqXsOUBpJMCjCIgiKQDrVISjTAr9YMQpFTEcJJ9FMwVzBVCvIlZ9CiovDAWvIPZm bw9QaRYcbRzivs9DLRyDKv7HtHwjZXE3FAfqAf8xuX EaKbRsMXWTQt1IggGpRTGiXYWHREceXGXzGYKjYHKdBgNyEphfD2B1WmEhCCCuSqYeXMDjUPSqPDQ0Bn X0NzB7ImGbFDIyZLH0BTn4T8BcWcVgMyGzCNLtXQE1MlZ+TV2aFAz+Qv4Kh3OlggA5ysMwKPfsArg8EK 8TXKIIC9GAAo== ID Date Data Source [id number] 12/27/2020 04:16:56 PM EDT [facility] Name Value Range Interpretation Code Description Data Evelyn rce(s) Supporting Document(s) Progress Note [facility] SFRWFu0aPyGHFlRl04/NXCoxGLFha8VmAZokFOi6ZDlhQMLcR3LbPOJ3hF2cHYL9LYlRWdQcDuVuXOX7 lbm [file] Ee3EOhX5LogFJoLxGY9UJAt= ID Date Data Source [id number] 12/27/2020 04:11:53 PM EDT [facility] Name Value Range Interpretation Code Description Data Evelyn rce(s) Supporting Document(s) Progress Note [facility] GJYLOf0gPxWTDiTf08/RTDobXLEaa2NgPFljSBq5KDlhNPNpF6AiREW7kP7eSMJ9ANrLEmHaJmPpUJJ7 lbm [file] AgICAgICAgICAgICAgICAgICAgICAgICAgICAgICAg ICAgICAgICAgICAgICAgICAgICAgICAgICAgICAgICAgICAgDQogICAgICAgICAgICAgICAgICAgICAg ICAgICAgICAgICAgICAgICAgICAgICAgICAgICAgICAgICAgICAgICAgICAgICAgICAgICAgICAgICAg ICAgICAgICAgICAgICAgICAgDQogICAgICAgICAgIC AgICAgICAgICAgICAgICAgICAgICAgICAgICAgICAgICAgICAgICAgICAgICAgICAgICAgICAgICAgIC AgICAgICAgICAgICAgICAgICAgICAgICAgICAgDQogICAgICAgICAgICAgICAgICAgICAgICAgICAgIC AgICAgICAgICAgICAgICAgICAgICAgICAgICAgICAg ICAgICAgICAgICAgICAgICAgICAgICAgICAgICAgICAgICAgICAgDQogICAgICAgICAgICAgICAgICAg ICAgICAgICAgICAgICAgICAgICAgICAgICAgICAgICAgICAgICAgICAgICAgICAgICAgICAgICAgICAg ICAgICAgICAgICAgICAgICAgICAgDQogICAgICAgIC AgICAgICAgICAgICAgICAgICAgICAgICAgICAgICAgICAgICAgICAgICAgICAgICAgICAgICAgICAgIC AgICAgICAgICAgICAgICAgICAgICAgICAgICAgICAgDQogICAgICAgICAgICAgICAgICAgICAgICAgIC AgICAgICAgICAgICAgICAgICAgICAgICAgICAgICAg ICAgICAgICAgICAgICAgICAgICAgICAgICAgICAgICAgICAgICAgICAgDQogICAgICAgICAgICAgICAg ICAgICAgICAgICAgICAgICAgICAgICAgICAgICAgICAgICAgICAgICAgICAgICAgICAgICAgICAgICAg ICAgICAgICAgICAgICAgICAgICAgICAgDQogICAgIC AgICAgICAgICAgICAgICAgICAgICAgICAgICAgICAgICAgICAgICAgICAgICAgICAgICAgICAgICAgIC AgICAgICAgICAgICAgICAgICAgICAgICAgICAgICAgICAgDQogICAgICAgICAgICAgICAgICAgICAgIC AgICAgICAgICAgICAgICAgICAgICAgICAgICAgICAg LLCaHSUgLRPnNUCnWBPdKTEjCZNyHYGcUZMvJJYvDCCoVGIpDHZrRGBfMUDqMVg2B8epPTEpIMLvHY1o MBz3Fr4+HHjZXkFmGLH0mjZdxX6HTU9pe4EgONihXJCtg0MsYUf5NT0NUDKxQNckIZ7SUUeddu0PVMMl JUVzsFYKk8foBvZvMNB0KDEbZwdwIW2AJVKsH5nanu FcEWKrFKQOIArcAROUHO2HNgIvS2PjzT67PYSSIk9+AQuznoHfChtFSsViPPYaj8PiUCl1GD2PIMIjJh dlv3DhXaOoLLCKQZhrPS3ZYDW0CGBpTHRyXg9LMBFtI637srZsPL5BTr4RBnLtTA1xtn7MCtJiMDXrQu nLOyf9XCrgSR8WgDQfVWkEwy3seqYujlMHa2PhfxRz mRDDx9SntJ7aWWvsc9NsjKnsEYVwWDEeEQ4wWZ8hFQOtVHDtScXwVQXSWU0IRCXoSSZmwIHcHDGxLSTJ EK2FMVceBQB2TYHdgdQttBDlKXjuZB7FUUJxfjQtMuTeLHGIHFq+Ui5WGM4bi0BlSUljEpYtEY5lta6Z HTaVTnUdQ1P2nOSfW3Q0QXpyGi8NUKBaFTFfOLwbHP AJBJwkPJ9KTJ9iajZ9ZM8OpYVmWAHqLFGfdFKfZMz3I41ekSPjHHnzWG7OEGF+Lobo+Gx6NXXOwRGRqNN TnFcSlTQVRQoFcL7SsC4ABv0DqQ3SuEK14vOddzhGsXBczGU8YPY9sOEJwOTAOVT8DuVVkeD7taqPuJX YzEIDJLiYeU73gsUUlZXCeMATbHTXfLc9QASTdU9Pn cvYqjSbrorAtWXKmYHPBKE1NBZctndCaqQKesDfiZG86bSavSA1TDu0HUqNvHG1lnv3VxWIxGn3OEOXn RW9FMVJrTSXwBCRhDNM9WXIuPfIdZGbdSMLuQOVnAHL3WTGbZPCuUQ5TOnOhDNFxJdU3LHHaUGIeQHOx kz9BJGArDIOuXgRpOILjONXjJSJyBOyoNMRlKKIzVM K4RPVsVZPbYO4CQzSrALSjKYO5QVYnZEAwKZOcxp4PCVDcTPQrGqp6BCNkBZQtSLWgPAewVDMvJCE1Mi G1CSHsOBMaVS5SRnGxAMSsJKY2BRwbVXRjDANyij9BVQYqAEUfNdc4EQVgHPTjOLVeGGcmTSKfNDN5AS q5HTWsEUUcBP1MDhOrYGHuVPeeKVKuUBTyZTUfaj6W CPZqSCIqGZUzUUMgJWAmRPXmMQphYWZbVCV8OuC9EAVwYNUcQV1FGlTtVTKlWVi9NRSrROQcNDHjdx8P UQMuHTZjYIp0COAmHGGjMFThPAhdHSFfTPVrTZh1DIPcOVHnVL1AOzFfPXIqWtBgKBFgYPGgLUQmvx8S MDAwMDAyMDYyNCAwMDAwMCBuDQowMDAwMDIwNzcwID ZzINXhKD3MEoZzTBHpIlThKwKvJOMxUDSztx2EMYPrGUMrDlLaEXLqGKPrUFWsHMhcNJInDQYlFnh1TA RvJCNxXB2SGlXaFQCdBoV3OeIwPQTzETYcky2IcQThaUyoyo4LRAkOJk7PyOobRGF8RKuvOs0nnJJrFn GiCQRTWz9AhaIbJYVkDESGUWkvFPJbFTcgIJWoA7Jr NzG4KQUeOfAfRoI5RRZlWzY9ZZD1CNs7VkO8OJHnC7T3Y6AwUQikJBXwSNAuDVlvSQHcUuVeFqOlENc+ XJ5vKQr+Ce1Zk8PveqZ5ezNtZAjeSqQ4OE3DFVUEU7HTJd== ID Date Data Source [id number] 11/19/2020 09:55:58 PM EDT [facility] Name Value Range Interpretation Code Description Data Evelyn rce(s) Supporting Document(s) Progress Note [facility] NYCSFk8fQyNWBhKa17/PFFfxLTDlq6VkUUkxHIs5JUamTARdF9TlLWE3mZ6nETC8LGjDRvNuTcLdAaRo lbm [file] 0K ID Date Data Source [id number] 11/08/2020 07:58:59 PM EST [facility] Name Value Range Interpretation Code Description Data Evelyn rce(s) Supporting Document(s) Progress Note [facility] DXOKKj4bEkOORdBq23/JBGngHAIrc8HvONhiRGv8BTkjDXHvS4McAQL2qT0hJJV6QKmBDzCjFhPgZoKr lbm [file] 1qBFXSYf5+QVfytRPcdPttYUHBKrIdCTI8NPmnGBYHCr9F ID Date Data Source [id number] 10/18/2020 09:44:50 PM [facility] Name Value Range Interpretation Code Description Data Evelyn rce(s) Supporting Document(s) Operative Note [facility] ETBACo9eFlZDFyFi68/EANfcUUBtc0MoVXwgRHj7GCisTUCuO9DgGBN8tH5rCAF7VMiCYiMkCiSyHqH1 lbm [file] AgICAgICAgICAgICAgICAgICAgICAgICAgICAgICAg ICAgICAgICAgICANCiAgICAgICAgICAgICAgICAgICAgICAgICAgICAgICAgICAgICAgICAgICAgICAg ICAgICAgICAgICAgICAgICAgICAgICAgICAgICAgICAgICAgICAgICAgICAgICAgICAgICANCiAgICAg ICAgICAgICAgICAgICAgICAgICAgICAgICAgICAgIC AgICAgICAgICAgICAgICAgICAgICAgICAgICAgICAgICAgICAgICAgICAgICAgICAgICAgICAgICAgIC AgICANCiAgICAgICAgICAgICAgICAgICAgICAgICAgICAgICAgICAgICAgICAgICAgICAgICAgICAgIC AgICAgICAgICAgICAgICAgICAgICAgICAgICAgICAg ICAgICAgICAgICAgICANCiAgICAgICAgICAgICAgICAgICAgICAgICAgICAgICAgICAgICAgICAgICAg ICAgICAgICAgICAgICAgICAgICAgICAgICAgICAgICAgICAgICAgICAgICAgICAgICAgICAgICANCiAg ICAgICAgICAgICAgICAgICAgICAgICAgICAgICAgIC AgICAgICAgICAgICAgICAgICAgICAgICAgICAgICAgICAgICAgICAgICAgICAgICAgICAgICAgICAgIC AgICAgICANCiAgICAgICAgICAgICAgICAgICAgICAgICAgICAgICAgICAgICAgICAgICAgICAgICAgIC AgICAgICAgICAgICAgICAgICAgICAgICAgICAgICAg ICAgICAgICAgICAgICAgICANCiAgICAgICAgICAgICAgICAgICAgICAgICAgICAgICAgICAgICAgICAg ICAgICAgICAgICAgICAgICAgICAgICAgICAgICAgICAgICAgICAgICAgICAgICAgICAgICAgICAgICAN CiAgICAgICAgICAgICAgICAgICAgICAgICAgICAgIC AgICAgICAgICAgICAgICAgICAgICAgICAgICAgICAgICAgICAgICAgICAgICAgICAgICAgICAgICAgIC AgICAgICAgICANCiAgICAgICAgICAgICAgICAgICAgICAgICAgICAgICAgICAgICAgICAgICAgICAgIC AgICAgICAgICAgICAgICAgICAgICAgICAgICAgICAg ICAgICAgICAgICAgICAgICAgICANCjw/uLHzW2ysxTXtpvQ6P3exTu6PHg6KHO8rp9DwZINeAJdhlqNy XxsIMpGrZXBoOhtLLyq9CZpqIL3DfRPeK7ToS2YtGBnwEE6KWPSdRQWxmAFpUFAlRJHmYtE9FQJhBYbr IP4QoOMcGAspNUZlGPFdYlYqTQJnEK4REGTkW843bm IbKp0OXg7FFgAkPD1fyo4QPYQeKZXiAoaFCmv3OYekGU8KmSToyTCyTyQaSPKLUtGbW4pgi5HfHKjcTI TLBElrJX1Ny8XrqXCgNXt+Id0ZJD9cy7QiDQnxBlJrSF6mjw8RFAfIEtXiX3XntFycTI2nDHGkaHe5AN LGv9SdYVZ6XBH4vhZnsXRWvU9hnXoaISNnIJNcTU7u Ir3hXCDwXGQxFeHpDTFQWC8TQAAzVUFpaHCbGSTaWIEKZG4QPZlqUNZ3YHGxrqGwdAFpHRupCQ5ERRRi bnQgMTYgMCBSDQo+Hv5DMW2xc4HsZFyeOSWtQM0adu6FOPxEPqUlV6D3uFFxN4N6SEkcId0OIBAxXBWx CWEkZBAERVfgYN1XXA3tigB7MH2HnFFzQUVsEMRrwD OjVQy1O96pzWQnMModGJ3NART+Lobo+Uh4SPKTvTIBbDYKiRtZvOYUPZxDhJ0MnA7FUz1WqG0EdZW11bW xhelMyBJtiMQ1DRX5qGLNiIIZVZH0CzGFovL3yjrUjMdXbELIOSdPcL80tlQNsFADcDBZ5IAZwUt8EEI LjX2SkftZolAsexwFlEVSjIPEVGO7DIZmpqxQnqUOb wPjeKU02dOrcBM8KKd7EInYdEW6jym2EpDIsZx0OXHPtBZ3DIHLgNVJxWTSjDJF8GIIsCsOvIEeaLJUu VYHyVCO1NKXgWNSqEV8AFaEsFNNqHOxnRctdAAHqDQBztu2JMJEwTXFjHJf5GBYjWZOxFFHgNJhnGDUr LLCiQSH2WGSyBENxVS7ONeKsKEWdKYI0ILTzLQDeBI Luty9NRGVhSCZnMoYnPFYbAJVoGEEzYMdiUSUdBGA8LEU7GYOcGHRkOK1UFdCaIQVhQYJvDyGyHSIeJN Yqri8EGNYzPPEpGnO2YGFkZVGkWJRfQBcaHZEtCIA1CBp3IMDbZTPeOV8XObZlPUVuQTB1HgTnMPIfDE Tlkk7HJBIiSBGgIxHzESAoWSFlGLGzKKasNIVpOZD5 LKQ4DVAoYXQeYF8LTmJcRWOyIFbrWUVyCUUqNQZuqm5TVGKgRAQhMLUzXZEfGRAtXVTxXPxoGMAgKOJ2 ECV3KBMxKGTxTT7OErGiYQRaVSs1BuOfCAEgWNBzqo2FKWChVVSxCIU0GlDxKAMqROYgYZa9jfKetAYq ISs6SK4YP0BkzpVdFLqTDg8Fx677YEL6RFPlCq5XG2 xsXp0yWPDvNZUZTi3EXXn1HjO0RMHuJaVfCFFdNZWrLJFoUXXnW2BgLkV3GVS5Vsd+IDxjMjRkZGJmMW HbGrU6HgM1BDHgMjTkLgXmSkWcVBC4AK4yQRFSZq2+FCsxgQSafLnyMWYVTmHdOdU6AAsbDHVUZa4I ID Date Data Source [id number] 10/18/2020 09:41:54 PM [facility] Name Value Range Interpretation Code Description Data Evelyn e(s) Supporting Document(s) History and Physical [facility] UCGEJa0gCiZNIqMn92/RRGenQMGhz4QzQIltQEg7DAxvPSRrL1EvWMZ4eK2yYAU4FNcKIxNgWrLoQnC3 lbm [file] DID9IWP5RVO0RzVvOC5XSz9LQkQ9OFR8nHWdCq4VWGT8BrZNHhAkPB2ZRMu= ID Date Data Source [id number] 10/04/2020 03:55:34 PM [facility] Name Value Range Interpretation Code Description Data Evelyn rce(s) Supporting Document(s) Progress Note [facility] ERIEKj5lUdBXArRx39/IPXvaVBOxt8NlIVqsUQe6WXgvOXOxN1SdLMI9jU0eXLT3FHcGTqImVhDeVxD9 lbm [file] NUV1GbBtBTxxOyT6BoMcO6JdHgYbMW3QVw9KExU4NBK2vKGvDq3GNcMaGtcPNdHmQG0GVDd= ID Date Data Source [id number] 09/25/2020 10:53:10 AM EST [facility] Name Value Range Interpretation Code Description Data Evelyn rce(s) Supporting Document(s) Progress Note [facility] ZIVJYd6fQiRTMeGn28/LNTyhQASwe7HbFJnoDVn5CPgzESAtU3PgTZC2wS0mRSB3NIiHRaVxVrGoNVB3 lbm [file] BTNvEV4dJKVJBm5+JGaolOGanFlsHQWECcS9EcVKFcDgWR7LCZo= ID Date Data Source [id number] 09/25/2020 09:17:16 AM [facility] Name Value Range Interpretation Code Description Data Evelyn rce(s) Supporting Document(s) Glucose [Mass/volume] in Capillary blood by Glucometer 212 mg/dL 70- 140 [facility] ID Date Data Source [id number] 09/22/2020 11:24:33 AM [facility] Name Value Range Interpretation Code Description Data Evelyn rce(s) Supporting Document(s) Progress Note [facility] ARMEDm9xMwSDJcKl60/CUCzoJLNso5BiQUsjNHw9VPlmIPXkN8EkDEO2xZ5vNWV7AJvAEyXkQnDwWBMe lbm [file] QNuwWmLqQCW5NLWmOls7XYC4BpImGG3HXf3ILmP5PUK3pQQbRg2JEJb3MyWWNqNxGR1ZZAb= ID Date Data Source [id number] 09/22/2020 11:24:00 AM EST [facility] Name Value Range Interpretation Code Description Data Evelyn rce(s) Supporting Document(s) SARS-CoV-2 RNA 2019 nCoV Real-Time RT-PCR: NOT DETECTED [facility] This lab was ordered by [facility] and reported by [facility]. 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 [facility] Patient has symptoms related to condition [facility] When did you start to experience these symptoms [Date and time] [Phen X] [facility] Patient was hospitalized because of this condition [facility] patient was admitted to ICU for condition [facility] Patient resides in a congregate care setting [facility] status [facility] ID Date Data Source [id number] 09/11/2020 02:06:32 PM EST [facility] Name Value Range Interpretation Code Description Data Evelyn rce(s) Supporting Document(s) Progress Note [facility] BWFCJc7oLiXUYmZl97/PCAdqKBDlk2IbBKuyXFx2IHtoVEWzD9JsSDZ5uN3yUME9VRqJJqOkUeQlHIVa lbm [file] ID Date Data Source [id number] 09/11/2020 02:03:11 PM [facility] Name Value Range Interpretation Code Description Data Evelyn rce(s) Supporting Document(s) Progress Note [facility] FUZQAh5hKeGYKpMk97/QMNutWYCyk6VsUOgdYQw5BFnuFVXjR2PnOVP4cA3tZZK4OOxVJkGiXfJlHETv lbm [file] oPIwIpEF8QXLz= ID Date Data Source [id number] 09/05/2020 09:18:21 PM [facility] Name Value Range Interpretation Code Description Data Evelyn rce(s) Supporting Document(s) Progress Note [facility] UIXQMg9uGrOQZlJt17/GCIkoNEOzg8EbWPzhUKa4BTxoDAUrQ0LuDGM0bQ7nMOS4GKuQScByQuWvHJZ5 lbm [file] AgICAgICAgICAgICAgICAgICAgICAgICAgICAgICAg ICAgICAgICAgICAgICAgICAgICAgICAgICAgICANCiAgICAgICAgICAgICAgICAgICAgICAgICAgICAg ICAgICAgICAgICAgICAgICAgICAgICAgICAgICAgICAgICAgICAgICAgICAgICAgICAgICAgICAgICAg ICAgICAgICAgICANCiAgICAgICAgICAgICAgICAgIC AgICAgICAgICAgICAgICAgICAgICAgICAgICAgICAgICAgICAgICAgICAgICAgICAgICAgICAgICAgIC AgICAgICAgICAgICAgICAgICAgICANCiAgICAgICAgICAgICAgICAgICAgICAgICAgICAgICAgICAgIC AgICAgICAgICAgICAgICAgICAgICAgICAgICAgICAg ICAgICAgICAgICAgICAgICAgICAgICAgICAgICAgICANCiAgICAgICAgICAgICAgICAgICAgICAgICAg ICAgICAgICAgICAgICAgICAgICAgICAgICAgICAgICAgICAgICAgICAgICAgICAgICAgICAgICAgICAg ICAgICAgICAgICAgICANCiAgICAgICAgICAgICAgIC AgICAgICAgICAgICAgICAgICAgICAgICAgICAgICAgICAgICAgICAgICAgICAgICAgICAgICAgICAgIC AgICAgICAgICAgICAgICAgICAgICAgICANCiAgICAgICAgICAgICAgICAgICAgICAgICAgICAgICAgIC AgICAgICAgICAgICAgICAgICAgICAgICAgICAgICAg ICAgICAgICAgICAgICAgICAgICAgICAgICAgICAgICAgICANCiAgICAgICAgICAgICAgICAgICAgICAg ICAgICAgICAgICAgICAgICAgICAgICAgICAgICAgICAgICAgICAgICAgICAgICAgICAgICAgICAgICAg ICAgICAgICAgICAgICAgICANCiAgICAgICAgICAgIC AgICAgICAgICAgICAgICAgICAgICAgICAgICAgICAgICAgICAgICAgICAgICAgICAgICAgICAgICAgIC AgICAgICAgICAgICAgICAgICAgICAgICAgICANCiAgICAgICAgICAgICAgICAgICAgICAgICAgICAgIC AgICAgICAgICAgICAgICAgICAgICAgICAgICAgICAg ICAgICAgICAgICAgICAgICAgICAgICAgICAgICAgICAgICAgICANCjw/yJJcE4rmpMSxnyO5L9rnMn0X Fv7HZS2ex0HdHGCiGAcjlqTjFxuTPcGlJQDmVcxYJgp5QOblYX3AjJKcT5WlL7TtBXocLC6UELMlHXEr lQSdUISmQDDkFsE0VKZkVMzzJY0IkQEdCFjuPYRhOJ ItAvWxKFBmQQYiNMDfPEKxJBYJUKJdYEAmAySsLPMdRDYaQH5HAXEsO728nuNvAl2AFn3JIoIlDH5ins 9BHeXpCLEhElrNAch5WCwoRG3WkJHqtHBfOzEnMDDJWmZgL5eqq4XkWgXhFALLKEqaJI6Fj6KzxGDhPY o+Ed1XIZ6fz2KcKCavTeUaEM7yor6CDQxATfCcU8Jk uNgvLFRzb8wcALHuNT5eiINuGDX7ADjyml77UBXgKGF9PNMzGN4EJOQ5KQZdKx2fNLXbMSXgDmU3LUMR IY5VCBDfIUWgiHZaMBZiJPNLVJ9FVOgfFGB5PQQqyoMvhMIrHQhwXS8LLEXzzdKpCcBlZCEDCNl+Pg0K HB1cs4UaCYiqFQOgYX9fcl6IONaCCkKxQ1H8wADzI1 K5VGdzUe9WRXEbYFZmCrUdODDBVIezTV4JKB2tdoM8TJ7EeXEnJIBwCZCioGYiHPb8W35spVQpSSltDE 0KICA+Lobo+Zb7ISBPnSYTxYUPxMrApKHZEEfTyG5MxQ7FKl0IbH2MzMX48xDbvicApQMqjIB5VHJ5mYK FpZXOQUJ6YlVDlaQ7yhhQtIjSnCHIAQdFkD89isCJo QIBpCNVoLQTsDt1FJHFvV8FbmrYidYtixcZxOGDaZCJRDM2UCEvkyzSfdQEqaMedWZ73zSjwBI4RCy8K UnLcPG7ukf0UrEXxYz9KIONySR6YZXQsIFCoAWWxMPO4RJUrLsYuMZnmOXCuAAHlYKU8ERAxOVJzJR8F VzLaETNfJlX3BhwjIVVpFZUytg9ENYFtJZTsMTE8Mj VfZOZaELQaXSwtZGKmBWPuEKD6NXHcFATyQK0NPqEfRPMlOLW8DUJyLOQfKOSflq7HGYVlPKIrYBz5MG FgDWIcSXVrQPoyUJJhOCV4LRChMKTyQAAqDO9AEgSuRBMgQXctFuTrMQEeXFJxkm5ELDOvGUQpCQS3SL ClOSSjLJMmDRlrUSZtGLCmFMl0OVTlMQNzJJ3QSeUc FABcPEJgQjRaYCWnNFTbsl1NJWAjJVLjSDF0MlKaKPNtHRMeIHntTLAdVET8JOr2NTNwEPYoRS9DQoQl XOZpIZb9ZOHhQCKbDNLvfo7VHOItURDsQXN0RYBwUGPiSXIjVCizMOSaQQEvTDA6VWTcVKOePX3ROqEa FZDlYeV7QCtkRCZdBPOlnm6EXHKwZMZjFMZsTXHqRB IlWTTrXGocDPBaSHGuHsm3ZGHbHZIsKW5BKlLzVOTzFqW9OLSaFTSpFKPefd7YEMMfXNIdGye8AGQpEO DwQDWxEJbqMKUuXSFxQXY1ONHwSPVxYS3MCqJwDDXuNpZ8DzVjFDUiVSQinb0NWFEnSYNiIRk2HEBjNC TaQDItFDarLJLqAFO8QMOxXIXmBRNdGT4EHjAuWKNw FoUnSHLqOTKrDOHaud1BLYUzDPDzXOL7GrOfZPYaFWNrUQliVRXoJQD8WKJeUNUfSQMiEY9WFuOqKMJb NgW0EmlgYEOzALDzzf8ABWKtDPRiVziyAuNxQXCqVBYuGAvwTXHaARM1XeBxQKLhNOYnKT8DFmUxXRIz Hcr2FIRjLZYiCFToqu9SRVZdDVDsFXl2VWCbPMZuNK BxSOyoBZMiZOV5ZEFnTIJmWQGjTB6UFoQsQIakTGSAJib1FNmsC1x5NVCvKO8NB6Ouc0BwDbHhXDQGSC xmMU3uxeEhXTNqIe4VJ5yRDieuDVR5BuDnYTKkHVvzHWw4U5ToJnT5SWA0YfM9HfYrUr5zRVO8HrhkTW BuMME3WPSdCXe4EEK8IYn9HOBrNlAzL0LwMeDrBT 6VUs4XDaH5RNJ8iJMnLw4PPmkiDSBQMtFcXX9IRUy= ID Date Data Source [id number] 08/29/2020 10:41:00 AM EST [facility] ([facility]) Name Value Range Interpretation Code Description Data Evelyn e(s) Supporting Document(s) Glucose [Mass/volume] in Serum or Plasma 245 [facility] ([facility]) Hemoglobin A1c/Hemoglobin.total in Blood 8.4 [facility] ([facility]) ID Date Data Source [id number] 08/16/2020 12:29:18 PM EST [facility] Name Value Range Interpretation Code Description Data Evelyn rce(s) Supporting Document(s) Progress Note [facility] XHTOGl7vKlZKQcVo66/QNYpvYZLxv2BvMCmvTCg1KNleBBSrT8XtGZU7eN5pNKX5BKiMQwVnCyTjPgH9 lbm [file] QxJf6MAcE6CiZZAgNkUN0CAQq= ID Date Data Source [id number] 08/16/2020 12:25:06 PM [facility] Name Value Range Interpretation Code Description Data Evelyn rce(s) Supporting Document(s) Progress Note [facility] XKLZQt6wJpWMEbMf86/CHQsnORAth4KvZAhhZXp2JJhfTKVqC8QfFQG6nQ9fHFB4BPdQLkXcAiIqYkL3 lbm [file] DXOfJUUxDOX1TTWcCLB4BzF9RX7iNEMGSi6+XDsexRSynMynMNMJEqWvSQb8QWgmDSEPFi9S ID Date Data Source [id number] 08/16/2020 12:21:10 PM [facility] Name Value Range Interpretation Code Description Data Evelyn rce(s) Supporting Document(s) Progress Note [facility] MIRONk5dKnUMFuZa70/BBVcxANEfn0RbYZsyEFz9UHlnLLDvD3KyVKX6lR1sAFP3MKbFWeLmVtHwJdR1 lbm [file] qZegJFAPCaVnFZBlTQtlAELBCl7Z ID Date Data Source [id number] 08/16/2020 12:17:29 PM [facility] Name Value Range Interpretation Code Description Data Evelyn rce(s) Supporting Document(s) Progress Note [facility] QCJGSo6fMgLHCyTn85/GQOvcERRdf8IeSCbxOBe2DJhaHNRaS1HxGTM4kS7lPJG4IPcFTpNaDiTnVeM1 lbm [file] AgICAgICAgICAgICAgICAgICAgICAgICAgICAgICAgICAgICAgICAgICAgICAgICAgICAgICAgICAgIC AgICAgICAgICAgICAgICAgICAgICAgICAgICAgICAgICANCiAgICAgICAgICAgICAgICAgICAgICAgIC AgICAgICAgICAgICAgICAgICAgICAgICAgICAgICAg ICAgICAgICAgICAgICAgICAgICAgICAgICAgICAgICAgICAgICAgICAgICANCiAgICAgICAgICAgICAg ICAgICAgICAgICAgICAgICAgICAgICAgICAgICAgICAgICAgICAgICAgICAgICAgICAgICAgICAgICAg ICAgICAgICAgICAgICAgICAgICAgICAgICANCiAgIC AgICAgICAgICAgICAgICAgICAgICAgICAgICAgICAgICAgICAgICAgICAgICAgICAgICAgICAgICAgIC AgICAgICAgICAgICAgICAgICAgICAgICAgICAgICAgICAgICANCiAgICAgICAgICAgICAgICAgICAgIC AgICAgICAgICAgICAgICAgICAgICAgICAgICAgICAg ICAgICAgICAgICAgICAgICAgICAgICAgICAgICAgICAgICAgICAgICAgICAgICANCiAgICAgICAgICAg ICAgICAgICAgICAgICAgICAgICAgICAgICAgICAgICAgICAgICAgICAgICAgICAgICAgICAgICAgICAg ICAgICAgICAgICAgICAgICAgICAgICAgICAgICANCi AgICAgICAgICAgICAgICAgICAgICAgICAgICAgICAgICAgICAgICAgICAgICAgICAgICAgICAgICAgIC AgICAgICAgICAgICAgICAgICAgICAgICAgICAgICAgICAgICAgICANCiAgICAgICAgICAgICAgICAgIC AgICAgICAgICAgICAgICAgICAgICAgICAgICAgICAg ICAgICAgICAgICAgICAgICAgICAgICAgICAgICAgICAgICAgICAgICAgICAgICAgICANCiAgICAgICAg ICAgICAgICAgICAgICAgICAgICAgICAgICAgICAgICAgICAgICAgICAgICAgICAgICAgICAgICAgICAg ICAgICAgICAgICAgICAgICAgICAgICAgICAgICAgIC ANCiAgICAgICAgICAgICAgICAgICAgICAgICAgICAgICAgICAgICAgICAgICAgICAgICAgICAgICAgIC AgICAgICAgICAgICAgICAgICAgICAgICAgICAgICAgICAgICAgICAgICANCjw/hLThE4ukjDRbokH4V7 noKe8YIa3HAT1ir5KyVWVdYAefupJrOcgCTgZvSREd KzcEIvf1UIqdAO2TtSViD8ZdU9FaKWkbTU1HRNTrCABtoFCoZPWfVIGkGyL7QZXpRVvjIV8CnHBnKFsv GKAfHINsIeKeQZNwXN3AESAoS272vgNvUl8KWk5WWxAnCH6gat1EErBiBEMwSbnLPuy9GIrtBH1CfOBl kGTfJYBwVVAXBjLoE1llm4KfBfEcNIKGETzvGJ4Te7 VudCAxDQo+Er5ZYQ5ex5PrYFesTRVhJV4qfk9RIAlQLuHcE2EpuZldWYCvo3pjDYCgJT3apZLcOJU1YO Kgp1GyrBNyDp1jYUQmZPBZFEMllUXkOt9aJe2dNWPzHCUmJiHrJSMFSY3YWXWmCTQqiEMvFVXiMGQOJS 6PIYvePWF0PSHupaThiDHqASldTS9DIKVfsoVkCdZs MCBSDQo+Yg0LBD6os7YaEDslXtQaUA9gbp0EAHyDWvKxK1H9uDIhN0B5PNblNy8OLCJyHVBbZxCfNUAG GGqbKQ9KYM2xalL0GT2OvQTmTTXzFWKwhLAeISz5U15prVEuNSqjVJ7NIBQ+Lobo+Tf3KDKSoSNAdFWYj ZrYrMJWHKjXkA5EdL8QZv5MbD4MySX33bVcntaDdJR icYX5JHI4qGTGoGIOUIN5AqBTcdQ7bxjZqQGIdCFKUHjQgF98wvLTtTZVgBPRjVFPtVc2VTHEfN3Qpmo MdnLcqsgWkEMAzEVJRVV0EFGdyaeBbxIOnxGgfQP05tBtaEX8JPu7GGaAdUR7kgk0RzMYmKl8NVAZjOf 0SZRJyDYTfTZAvHZG7UZEzXwIdZVcbKXLmNWMiYQG9 GGEvIJRlKU1UGsCuEICaEnU6KJOyGCLxSBAcky1KMKWiDOHeYBKaRRQoRUChHOKhLAziAKEwUFZsJJY0 DQTuYBIiAV0EMhTbOWKmMTH5PLFvIYYfROZmng6WWCYsMZPpQMUsKBAaPPIyJJTuULacIPTxLPB5NnRr UCPkJOCqHZ6ULqOsWMVyDNL7UhZaGDFtHWPlyn9UHS HoDFNnGyR7QyHtDQNtPDDjLPzkLTHqIZW6Lcj1EBLnZAMuQF4WRqMlMRTyZTz7PaEmBSSyWPLfvp6JMT DsHMXtEZfjVJGdPPFoLAVcPXkcCCOcVFH5QPBdKRUaKXLwAT7RDmCmCVKpUSvoTQnoYKWeRCTyqa9XJS ZfMEIbZFI8SEMwPJRjAAYpJBeqSSXeHXTiUWpyPKHf FZGbHG3QAcEwWSRtPcZoNEzrVYFwCTAlkf8JKBHtHYUvKQRjADRvHBSrLOMbDBxuCWImGCMiXUu4AVGt ZYGuOS3CKnBaZKWuSuI2EnccYIBmKXDqhn2WQPCdTEXvOeJnRDOdGNZuIBHrCDrlNDWgWFBiMjagDBPu FTXaEW0MSbKzQCFnCoJpEGmpAOFdKQJiog5CWVIzNC PuZQV3SaPmQXBbJPWzADnvWMOnIUC1LaKjKTGjNIRfZN0YDbCmZJHrZlM5UoCcIBBhSYJibr8UiMLwkA sxnj5RRTuRSs7SxOplVJE3VDlbLy5jdDHrSeJhDYVICl6VssZhRIBeVWSWVZutWPPwBJUaSsX0RHIiMg J1SzKgGYFyLMdhD0YrWEElGJU8ZaVfHnI7CuH9DmF4 ATQcBow2CNF1GMT0FVOoZPN4NuHpDxQzCAT+FB5tKEc+Pb4Lp8NyvgN5xeDsSBamANMlUd7WLZCPL7SN Cg== ID Date Data Source [id number] 08/02/2020 08:56:04 PM [facility] Name Value Range Interpretation Code Description Data Evelyn rce(s) Supporting Document(s) Progress Note [facility] VAZUDx9xRxXVNaZi61/GYPkxHDRxy4HfDNyjISw7HTuqCPPyO4VlYMV5xA4gHGM0VIoBRnVuBwXtSpSo lbm [file] NNN4LAS5HEG8DKu7XYLzJ8ZeTBGbFsOvBX8BJf5RExL1TEJ7dTWpZg1ZVrJ1UATHKdBkLY6DRCg= ID Date Data Source [id number] 07/30/2020 06:50:29 PM EST [facility] Name Value Range Interpretation Code Description Data Evelyn rce(s) Supporting Document(s) Discharge Summary [facility] UPMUOs4kMfPRGrLl94/MGKxnPOXvq6JmWDydYYj7LKgpMRRdN3DfTVX9fD5uQJZ8BUxDXbSaIbAhADBk lbm [file] l6FYkq7v6v932T09q846YrTsT/Ict Sales Assistant++U5VJP8CYMv8RuQK+uqah5rz+daMdWAokJyVd0TzhNrvpwYYcvs [file] ICAgICAgICAgICAgICAgICAgICAgICAgICAgICAgIC AgICAgICAgICAgICAgICAgICAgICAgICAgICAgICAgICAgICAgICAgICAgICAgICAgICAgICAgICAgIA 0KICAgICAgICAgICAgICAgICAgICAgICAgICAgICAgICAgICAgICAgICAgICAgICAgICAgICAgICAgIC AgICAgICAgICAgICAgICAgICAgICAgICAgICAgICAg VOHmGLXoOPCkNN8HDLLgTGIiOLFiBCOsXAGxOIUnHJOmCKJfQUNyWNSvSUVvINHyOBEeXEUkTSIwMNQo CTMrCFTzMOTqNSTrRCLpJKPpORQcRIHgCYEuEUZyIJVpLVRhOMHtIBWjQOWcOGPrWSQlDU4XMRMbEXKo ICAgICAgICAgICAgICAgICAgICAgICAgICAgICAgIC AgICAgICAgICAgICAgICAgICAgICAgICAgICAgICAgICAgICAgICAgICAgICAgICAgICAgICAgICAgIC YpOP9PQLRqUKSxQUXwGRLiIRYeULHqNHVtWTPgSBOgZOGhSAAsUDWvEFOaKMYfWHWnKFIoAODmIHFvFO AgICAgICAgICAgICAgICAgICAgICAgICAgICAgICAg GWKsLNAtCRHmYXZmGY5JEAAmNOJnMCLvSMLrEESmFHOqIAUwLWNxJADrGLDsMSFtHKIpNXRzESLrPSUo VTEcMSBqQPUbFZWaOQTuORAhRFTeFGZwHSFkDZSlLIMpESVpGQRdGPNyRSUwVMXaKDFuBSGyUP4XBNAr ICAgICAgICAgICAgICAgICAgICAgICAgICAgICAgIC AgICAgICAgICAgICAgICAgICAgICAgICAgICAgICAgICAgICAgICAgICAgICAgICAgICAgICAgICAgIC BhGZJdKE5HSDFlZWWdBKGgZEKhPHTnIXWtTJAbLYMgIGXdHKSbFRRcCJWhWCKlKONeBMUcOHBcIYVmHW AgICAgICAgICAgICAgICAgICAgICAgICAgICAgICAg ZLVsDMYnUGXhHJJyGOIcJK2VCDSnKZTnNERgECAkGKAdAJLsNLOqCFEzHJPpBOJdLVPkJZVvAPHcAROt GDAiNRKpZNXtFBPlSYWpHPVuGPFfJXQdNXFvPIFyKRKwMFIdEFZuPSGdZIQbSRMlNZLqBDQoPOUdCM0D ICAgICAgICAgICAgICAgICAgICAgICAgICAgICAgIC AgICAgICAgICAgICAgICAgICAgICAgICAgICAgICAgICAgICAgICAgICAgICAgICAgICAgICAgICAgIC FfEJYuBRDvOV8DCW36eAImd9I6UUCuOX8rimn/Np6IFSkbgtLgqRJkHJ5OEmDdIX5xxz5LBcHkLU6nvl 7LUGzAIgNtQ8S2lJKwOIPjQFVDQwEeH11kMQgtFj23 BIacLVRrGrAmCMd1Cf8HXwDfD2xpKACaHgN2RDAeOgJ2EXJlPxP8HCOgWgOdAEHpFHUfEVJpFEDMBDI8 YZCoLvFfFsQaMEAqEQ3JYELuV878rlMdGr9UVx5XXpUwET8qlx2TVfEdTITpMeuAIlk0OAteDQ2WoYRe vLDyLCEwFPQICvVkO3yih7UsAaHbMXMJDZxuYX0Bx0 VudCAxDQo+Ty7QNA7xe3ZyCHbcBKKiPL8bzp4OFBzQOjAvN7PneWcuTLJdc5CcAZBgXBTGaC3rRML8TB K5VG0zomPvVESaW9K8fukmCDPQKsEomTYxWU3kVS8mVKHiRKViBeX8RVCXKD5CIYRnCSIzpTWoWSRtSV IZGV8TSYcgYWS0SLXjxmJkfQCoIUuqAJ3IWDWlqnDc MzQgMCBSDQo+En2ZPH8xm5XeAQodEdTxPV6fdg5LCEeMTwNqH9Z9tWLpI8O2HPrbEv0FQRHuDYKvGkUe RUTXVBqyPX0BCS9zmcS9VY1UbGHzZBWyASDohZHyIFv2R68rgLVqEJfrJL8MVCT+Lobo+Ju0WDWUtQCWm UQOaWcUsYARPZdSgE5TpB7KWf4BjR4LjIR88qFajbo LfFCagHZ3UMU4zOGAgETQPLP0CtHXmgV3wooXyQWTuTMHXHiTjT88qoOQiSWBeBBBmSSNeJu1STYBvN5 GpiyYhdOcywrPzUJImVKUZYB1ONBwsfcCfxNNwoUzrLX82jPikCV5HTv3GHmEcBY0ohy2HvOGhPl5KFB UnJn0WDSSoNYPqBSLmDVQ9XBAiJcThAQzlACDvDLOx DZQ3RCVcAMNwJK1GNbXmJLRyJSG5CYIjPOYdRHNrcx9DTOHeXQI4IXXdFOFeZWJlTNCbHKsvUKLpGEDf HPZ7PFDdZSAmAB4QGiFgSCUeYDQcIMcaAXTdOLJisk5QDUCwESFcXBIpOtBjBOIgJZIcPAziLWSvQPG7 KGIgDHVmJJSbSQ8QHyLaFLZjJZjmKIQySQTrWOJhcu 7UUZTxHSMuHDSnCQPzRGTqXKNeYTkpESXtSKZvBYH6RWXmDKBiZY3BZiMyORLqZUE0IjsrMJHkLFPpsi 4BMABuBKYoUZD5BsJgTSAoURXvWRtwFDSmNPN9WXObLNDzMSKgDK7VVqHgUMZqNZgpFoPbDPZvZBKjrf 5VRCFvJQFeKFD2JIEzQMHlNPZkVSiuQWFwNGGaZPN5 UXYeOJOxCX4EBgExAWHsTgHvQYisMMHpEJEnab8VMXLoPUIqEvAuWEEeXJWwCSGoHKbvMGRxNND6UZy2 TTVmSLZlEI7XQoNoGDEhYqY6UEDxEVZzPKBsbt5TSXLbEUJiCFq8IVXfTDVuXEHeZSpmNRMrECK3OWC9 FGXpYSFzYU9WAlYkLCSjRrRrCpKyGGMdLCVqdi5PSQ YpJKQeElRpWJHvIUHiWRTpSOfkXWHgCJN2BJb3TKQsEBGmNY0HCiDxPFMcParxZkPtAYOcAGVzxj8HWF ToTZEiIkI9KVUiMPVbSNPbPFdrZWHsXHR3VrO2OSOzKEHcKR4NYfDoNDGoPUD1EnKsQGGmVUGgox9ZMU YyCYV9UMxqTYJnEPInCJFnJXgkLOEhJZL5CnR7XRAb CCCuGR4HSaBtVSIaTWQuRDIcWTWuFOJwlo6XLCCgWAH5Bdj2FCZsPKDeYBAvXIqnXDEzNQH3Rub0CULd PUUmSV4NWqIrQZSpJMqwYXybLLLxEULdhr8YNNGrLKY5JUDgZVZtRSXaIRZyAXo9jrVrrYQeYJa8ZW4V G5UdcoCeVfxFBe1Cz468NZD3ZDZjUb9MB5srDx9eIN DlJSFHTc7NHMu4GHJfBZV4QzAsILd8MlMiFwI9GHXaKVCnZMY8OvY5FON+GWkaXdF8RcK4DFKzWQyoFx CuCeE3JJV3CxJpFOlfCOs4MT9vUVICVy2+IClemWYqjSmqQFDHBsZ9PsD6UAaaFXJDMb0K ID Date Data Source [id number] 07/30/2020 06:50:04 PM [facility] Name Value Range Interpretation Code Description Data Evelyn rce(s) Supporting Document(s) History and Physical [facility] HWDSAg0aFnBSWwPt70/HJMjuXCWrr3IrROruINi1WTgoABFkX1FmVLB7cD3eRWL5HJaVFiFaQqBsCQBj lbm [file] yVCdnaQPt6uhb2X8UUdwPJ2z/cBSk5GKSzJCnBz1XRx9WMgz9k8b631J06o428YyCvO/Ict Sales Assistant++J0RVW7QS [file] GLUELINE WORKER+He8SSYBpDMt2V7Z2RMLeYXy3F5SIQ1XOIENnLWwyJScyWIUfLPg9W1W1IVSlQ7ONF4Xyggoksw5+ RD3XA26GUCJtJSr9N4J4iPHeE3R4fEtRaNE7DW8WFT 9QiPt6dIVkvU4+MQ7LP7JDJqPzABd1Q4G5dMZrE2C1gVzKgCJ5ZA0WXJ0UyRUmYMFkbwPxLa0qL5PMRJ uVDkQPAJP1GW2HfFHwNP9RpMYWY4KpgTGeOu9rCZyznWYprW5gIc6gNZneKS2PMpAQICnDUPB1AZ2QeM KmHV4EbNNLC5FidSKdZz3cUJruqEOold2+UC9CRJLf Vs9YPl1+OIquimOnUqmZDlU0ZSKcy3NyVKn4LZ0OUP7ypZxyAHJ8Rw1OeVG9kDGpZ7dUNC6KjRVmL51d zEHjEBPwNm1ADsF2uaAvtR7ICV20zATpa7P6LQLwY1yzLKhog89aWDfbEWuVMU4sRADXNGakRGfmJLY4 NiHyxdebVBTaEs0EFyEzFSe1yO2shGF8DDC1AhghmK GtQXevSaXtYpEiDfQ2wDfhlsw9LIxmKZ6cSCqrmsppAFPsAch+SAkiULAqIVZoCxlEEGNrfG2eknF7zz AcMBjghQWwIm4ug3c0AsnhYy2lJm8fNNl3DnDaGzTqXBNxVr5bzB82YGvewbAdGk6XJbVeQER6Q1BsHj pSREY+MYtzQHdlkGn3tLYoQXDyXz5EYDKkWMIyGUHs ICAgICAgICAgICAgICAgICAgICAgICAgICAgICAgICAgICAgICAgICAgICAgICAgICAgICAgICAgICAg MXPmQTFsDKUeDJLyUSLzSTEsDJSbGCFkYIFjZJSkHU3YEINyQJYzQDQrOSLtZLSnDEKmZBHjDKPtTOFd ICAgICAgICAgICAgICAgICAgICAgICAgICAgICAgIC DxYUIbKXVxHGFsRDXdTRHoHABgEAIrMLZrKJTvLDXrAAHhYYSeGVMdDU0ZHJDoRMClRQYtGOEbFIUrRX AgICAgICAgICAgICAgICAgICAgICAgICAgICAgICAgICAgICAgICAgICAgICAgICAgICAgICAgICAgIC HaVXEdNWNxTWSzQLJwLFOyRQWyMYFuXD9WFUZnDAIw ICAgICAgICAgICAgICAgICAgICAgICAgICAgICAgICAgICAgICAgICAgICAgICAgICAgICAgICAgICAg BSYxGLBuVZTnCKYeMLLiDNLpJZTcUKQpHRKgMYLsPCEnCN2IEAKpLJTqZJNsYCVcIRJbNUQgWRQaQUCb ICAgICAgICAgICAgICAgICAgICAgICAgICAgICAgIC ImRYRbQQUcQAEcJPKeWVJgWTUqOCDaPTTmTOEiSTRpOZVpNVBvSKCdWRXzQA2CHXKwGKAoDSIwCWQqVV AgICAgICAgICAgICAgICAgICAgICAgICAgICAgICAgICAgICAgICAgICAgICAgICAgICAgICAgICAgIC QdMUXtJKLlUOCkWYFeUDNkMDEvWIDkRGKfGF6CMLTp ICAgICAgICAgICAgICAgICAgICAgICAgICAgICAgICAgICAgICAgICAgICAgICAgICAgICAgICAgICAg VPSlVEHiUGMgPQZgIPTwYKBwBWXwDFAxWYJzDGBlKQVyKALtWY8PYPGsWLHnUCLfNAHzHUUsSUIiLDLe ICAgICAgICAgICAgICAgICAgICAgICAgICAgICAgIC OcOATxHLLwIQOgQKWeIUTpOQXvQRWjEYTnRCKaXHVqTGHxGNTaMWWpCMHzFTTgBK3QSBYjVECnPNKaHE AgICAgICAgICAgICAgICAgICAgICAgICAgICAgICAgICAgICAgICAgICAgICAgICAgICAgICAgICAgIC NfZQHfOHByXNVmDITgPFTbFGQiEVHoMRFfECJvBJ9W ICAgICAgICAgICAgICAgICAgICAgICAgICAgICAgICAgICAgICAgICAgICAgICAgICAgICAgICAgICAg ZFCbMELbHIIhKYNbFALiYUTlIGGwLRZiZRRiHKMaUKXdKHUeNKEgUH1YRF82lCTiz9F6VEZhSI7nnbd/ Gv3INQmsirStcGQxJM9JCwVhKK7zic7ARvDjUJ6qin 0JNTeDPdDmQ5T5nKUcOJFsHMTUOvMxK28iQTwgUq22PLbdDQIrIfMdAQj5Wm6MEkKgL7lxVPFdFuW9VQ YrXaF4WNRtHwQdOIOcGGTbQHCcTRJGVAI0ZIAvMnDvIuLvVHIsLCgbADXZOQ8WNfQwY1YrvP49LZoDEa 4+EAtcruDmXpxMOzV7STYys1ReZAv8XU6HZAUhDmzo v0UsFeMzSCUJDSvbYH5CLJG7ZFN5NEYeHz3YYQMzP844phSaZD3NXb0IIvNmIN9rie7EDwHjPLTfXioE Cgv2ZUiwJX7QsJGfYIyDQaDcTorpBlMdCEKEjIFjPMjzTC6KTdZsTRTePONyRBihMkFuNIOrUItwNEMJ QBwUYdDiS8Iue4EkKxY5ENUaFpQiWWheBYWaDqN3ZL 36gHjjWD1POTLmECHvZU65NHN6YMDkGh0KPj1JOeIcOY9kyp0QUtOyJL2zkd2HSQxNMyOpM1J0rHBcB3 Eqkh52AY8PuUB2zUJhAR2PrQ4gDM1Qq3XeBAVuJpIxPAViRITjLGEdFYGqJxYnGA8JZXCoQfXdyKKpDT M8GFDsRORlDITbBJl5ESAYTnPsY0GjWThmFyOaJBEP TW8ZOkwpJTQhR3BDAToAJO3LA9kZM4LABi4OJH9FQLCPR8oSO1iIH3bSLEknSK4YNXQdTE0+CW6QJt6N KpCyYY3cef3UPxjfQLJiWagFNbz0PEpcUT2BgITvC5GgxHQvo7mZQuLgV2BUODYgHIOkVh8XSLDfToJy RIGmBBcmRA4lWABdTRRHzLjgzhF6OL0WKE9qepBqNK 8EVfQjOx6uQd5HQsPvZ9LwI4SwGGPiNWCHDAjmLX3JMEymVT4sGZ7Ze7TIcHIzrL2xkt5EKNWqGJWtGm klgt1XYtagE7J5wLlxUWQsMmBvNKNGDZvfKE0HUGBsLDS7GTQrVKGlJCQPMnSrO43dLQ9LO6Znr98eMc S4SJQdAgZaNSxwQK06lBqralCazKBfeXevKB2JTo1+ EDicbdNbEazSIzzyBVXTIeVpIgnEHxPjSPLaUQZcIUKrBmI0UhDwPt8PLTLgFVKeKYDkBnYrUIOkUCFx KOjzPKVsFOS6Msa9ENAyPBPcFD5SKbGiMOZmFUd5SHUfZVFdFUCkhg2IGTZuGUNySAK5AwPaLBFiUTUg TPuaDYAlLHRmEiD1ZJPgOSFwIC3YRtUcRMFjRHp1Eg TaCSVkKBGdaz6BOLGcJHMjTrz0VLDmIMRpKEZjBDdmWVAsABT1NRTqCAOgJIGaGR7LAmSwDTFjCHx9Qx LrOEGyVTZavs7QUBSkVFBtDIZdPxRtVHYnAGWrHUysSQNsOEUrDoCqKBIhJMAzZO7FEpGaKNXpFCO8HK GsNKCqIZDcgo1EVDSxNDBxMTneUGQaQLWaLGOsSSej QNPiUKB6WbRxCTOrJRPpQH4RZpOcFVUnGZo3VttfLVKkQJLkhl4RZOTvEQWrAQW6OIGhSGYtWKKrYZeq SIVfDFGrWwd5TFHfAPOxDU5MFaRkSQZiWeD5LCGcFUHpCSRcti7WDMRcSSLxDab6NZRrFTGuFCUzHMod UROwDSXyXxG2MJUoLSTwFS9TIgXaYHPgYpE4VEUwHT WpNEFput5NOBRaSNCcMDXiLQCdDGDcKCIvOFeuTDDcYDO5QRq3VCNgXPXnQG7HGeVoEGTiVuYqXTBmXL RzPILopm9VULDrDMKwTYE2PMVhVCHoMOMaLRrvMOEjRNC7LQS8UMDtVSPqUE6NRrMmRCEqElD4TIUfOO SlDYJpao7KACAxLLQwUoxsQEYmDJKzWKMqIHesOEKy JEF0QKmaPXQqTQGtGE8MDkMdQMAhYIU8DCQxOMMyYXHxxy8KQCEzCNA1EAZzVIZbCFNjNHGwMJcsTSUt FWF0XPR6TOZvLFFzLS9TXuBgZVWxEGV7UBFyOLIyCFIefn6GIEWaJSB3FeO9OtEgVVKlVNIdXZwbYZFx KDP6UCDvVWGiNEAxMJ2JXsUgSAPcBGh7RjRpSAZtEV Pofw9TXSCwMVB3Hrq0IoYbFDLxLSRpKUj9fzPflLWyORu8DG2ZT7FvfvWxRyfKXa1Mi604QRM3QBSaIv 9HQ6yuKl4pLRRwKOHXUi4BVKc1XDAhJVMxAzZgWnTvJINaXlLoNup9SCY3BsWpMVLnFTU+IDxlZDFkYm VqQMS7H4V2LlW4ExF4ZBi6OKn1GyT8UVVaTf4gRK ANCj4+UEnzvTMenXppXOACTmA9RTq5FTrmIWSEIa0I ID Date Data Source [id number] 07/24/2020 12:01:00 PM EST [facility] ([facility]) Name Value Range Interpretation Code Description Data Evelyn rce(s) Supporting Document(s) Glucose, Fasting 110 mg/dL 70-100 [facility] ([facility]) Blood Urea Nitrogen 33 mg/dL 7-18 [facility] Creatinine For GFR 1.53 mg/dL 0.55-1.30 [facility] ([facility]) Glomerular Filtration Rate 38.9 [facility] ([facility]) <content>Units are mL/min/1.73 m2</content>
<content></content>
<content>Chronic Kidney Disease Staging per [facility]:</content>
<content></content>
<content>Stage I & II GFR >=60 Normal to Mildly Decreased</content>
<content>Stage III GFR 30- 59 Moderately Decreased</content>
<content>Stage IV GFR 15-29 Severely Decreased</content>
<content>Stage V GFR <15 Very Little GFR Left</content>
<content>ESRD GFR <15 on [employer]ER[employer]</content>
<content></content> Sodium Level 140 meq/L 136-145 [facility] Chloride Level 110 meq/L 98-107 [facility] Potassium Serum 5.1 meq/L 3.5-5.1 [facility] ([facility]) Carbon Dioxide Level 22 meq/L 21-32 [facility] ([facility] Calcium Level 10.0 mg/dL 8.5-10.1 [facility] ([facility] Anion Gap 8 meq/L 8-16 [facility] ([facility] ID Date Data Source [id number] 07/20/2020 08:38:55 AM [facility] Name Value Range Interpretation Code Description Data Evelyn rce(s) Supporting Document(s) Glucose [Mass/volume] in Capillary blood by Glucometer 147 mg/dL 70- 140 [facility] ID Date Data Source [id number] 07/20/2020 04:12:32 AM [facility] Name Value Range Interpretation Code Description Data Evelyn rce(s) Supporting Document(s) Leukocytes [#/volume] in Blood by Automated count 15.8 10*3/uL 4-10 [facility] Erythrocytes [#/volume] in Blood by Automated count 3.76 10*6/uL 4.1- 5.3 [facility] Hemoglobin [Mass/volume] in Blood 10.9 g/dL 11.5-15.5 [facility] Hematocrit [Volume Fraction] of Blood by Automated count 33.0 % 3 6-45 [facility] Erythrocyte mean corpuscular volume [Entitic volume] by Auto mated count 87.8 fL 80-96 [facility] Erythrocyte mean corpuscular hemoglobin [Entitic mass] by Automated count 28.9 pg 27-33 [facility] Erythrocyte mean corpuscular hemoglobin concentration [Mass/volume] by Automated count 33.0 g/dL 32.0-36.0 [facility] width [Ratio] by Automated count 13.9 % 11.5-14.5 [facility] Platelets [#/volume] in Blood by Automated count 462 10*3/uL 150-400 [facility] Differential cell count method - Blood [facility] Neutrophils/100 leukocytes in Blood by Automated count 54 % [facility] Lymphocytes/100 leukocytes in Blood by Automated count 34 % [facility] Monocytes/100 leukocytes in Blood by Automated count 7 % [facility] Eosinophils/100 leukocytes in Blood by Automated count 4 % [facility] Basophils/100 leukocytes in Blood by Automated count 1 % [facility] Neutrophils [#/volume] in Blood by Automated count 8.64 10*3/uL 1.8-7 .0 [facility] Lymphocytes [#/volume] in Blood by Automated count 5.34 10*3/uL 1.2-4 .0 [facility] Monocytes [#/volume] in Blood by Automated count 1.16 10*3/uL 0-0.8 [facility] Eosinophils [#/volume] in Blood by Automated count 0.57 10*3/uL 0-0.5 [facility] Basophils [#/volume] in Blood by Automated count 0.14 10*3/uL 0-0.2 [facility] Nucleated erythrocytes/100 leukocytes [Ratio] in Blood by Automated count 0 /100{WBCs} 0-0 [facility] ID Date Data Source [id number] 07/20/2020 04:32:41 AM [facility] Value Range Interpretation Code Description Data Evelyn rce(s) Supporting Document(s) Bicarbonate [Moles/volume] in Serum 17 mmol/L 22-29 [facility] Chloride [Moles/volume] in Serum or Plasma 111 mmol/L 98-107 [facility] Creatinine [Mass/volume] in Serum or Plasma 1.43 mg/dL 0.50-0.90 [facility] Glucose [Mass/volume] in Serum or Plasma 158 mg/dL 70-140 [facility] Potassium [Moles/volume] in Serum or Plasma 4.6 mmol/L 3.4-5.1 [facility] Sodium [Moles/volume] in Serum or Plasma 142 mmol/L 136-145 [facility] Urea nitrogen [Mass/volume] in Serum or Plasma 21 mg/dL 6-20 [facility] Anion gap 3 in Serum or Plasma 14 mmol/L 8-15 [facility] Osmolality of Serum or Plasma by calculation 300 mosm/kg 275-300 [facility] Creatinine/Urea nitrogen [Mass Ratio] in Serum or Plasma 15 [facility] Calcium [Mass/volume] in Serum or Plasma 8.8 mg/dL 8.6-10.0 [facility] Glomerular filtration rate/1.73 sq M pre dicted among non-blacks [Volume Rate/Area] in Serum or Plasma by Creatinine-based formula (MDRD) 43 mL/min/1.73m2 >60 [facility] Glomerular filtration rate/1.73 sq M pre dicted among blacks [Volume Rate/Area] in Serum or Plasma by Creatinine-based formula (MDRD) 50 mL/min/1.73m2 >60 [facility] ID Date Data Source [id number] 07/19/2020 09:26:51 PM [facility] Value Range Interpretation Code Description Data Evelyn rce(s) Supporting Document(s) Glucose [Mass/volume] in Capillary blood by Glucometer 173 mg/dL 70- 140 [facility] ID Date Data Source [id number] 07/19/2020 06:14:10 PM EST [facility] Name Value Range Interpretation Code Description Data Evelyn rce(s) Supporting Document(s) Color of Urine [facility] Clarity of Urine [facility] Specific gravity of Urine by Refractometry automated 1.006 1.003 -1.030 [facility] pH of Urine by Automated test strip 7.0 5.0-8.0 [facility] Protein [Mass/volume] in Urine by Automated test strip Neg [facility] Glucose [Mass/volume] in Urine by Automated test strip 50 mg/dL Neg [facility] Ketones [Mass/volume] in Urine by Automated test strip Neg [facility] Bilirubin.total [Presence] in Urine by Automated test strip Negative [facility] Hemoglobin [Presence] in Urine by Automated test strip Neg [facility] Leukocyte esterase [Presence] in Urine by Automated test strip Negative [facility] Nitrite [Presence] in Urine by Automated test strip Negati ve [facility] Leukocytes [#/area] in Urine sediment by Automated count 0 -5 [facility] Erythrocytes [#/area] in Urine sediment by Automated count 1 /HPF 0-3 [facility] Service comment [facility] Bacteria [#/area] in Urine sediment by Automated count Non e [facility] Epithelial cells.squamous [#/area] in Urine sediment by Automate d count None [facility] ID Date Data Source [id number] 07/19/2020 05:08:20 PM [facility] Name Value Range Interpretation Code Description Data Evelyn rce(s) Supporting Document(s) Glucose [Mass/volume] in Capillary blood by Glucometer 136 mg/dL 70- 140 [facility] ID Date Data Source [id number] 07/19/2020 04:31:41 PM [facility] MR BRAIN WITHOUT CONTRAST [id number] RES ULTInterpreted by:Denver Caldera MDINDICATION: eval for left thalamic stroke.TECHNIQUES: Multisequence multiplanar MR images of the brain without intravenous contrast; 2D TOF were submitted for interpretation of the MRA of the neck: Non-contrast MR angiogram of the brain was performed with axial TOF images. 3D maximum intensity projections were generated. All measurements are per NASCET criteriaCOMPARISON: Noncontrast CT head from 07/19/2020; MRI brain without contrast, 04/14/2018.FINDINGS: MRI Brain: There is encephalomalacia with surrounding gliosis and hemosiderin deposition in the right occipital lobe with ex vacuo dilation of the right occipital horn. Small old lacunar infarct is noted in the left thalamus. There are no areas of restricted diffusion to suggest acute infarct. There are nonspecific scattered foci of T2/FLAIR hyperintensity in bilateral centrum semiovale and periventricular white matter without significant interval change compared with prior study from 2018 and may represent chronic small vessel ischemic disease. There are no extra-axial fluid collection or midline shift. The basal cisterns and foramen magnum are patent. The paranasal sinuses and mastoid cells are normal in signal.MRA Neck: Normal flow related enhancement is noted within the innominate artery, common and internal carotid arteries and the vertebral arteries. The origins of the common carotid and vertebral arteries are not well visualized secondary to motion induced misregistration. There is no evidence of a significant stenosis at the origin of the internal carotid arteries. The left vertebral artery is mildly dominant.MRA Brain: Again seen is focal narrowing of the left A1 segment better appreciated on the MIP images. Otherwise the vessels of the [place] are patent with normal caliber. There is no evidence of aneurysm or arteriovenous malformation. Normal flow related enhancement is noted with the intracranial internal carotid arteries, anterior, middle and posterior cerebral arteries. There is no evidence of stenosis, occlusion or dissection. There is no evidence of an aneurysm or vascular malformation.IMPRESSION:1. No evidence of acute infarction.2. Old infarcts as described.3. Patent main arteries of the neck. Redemonstration focal stenosis left A1. Otherwise patent vessels of the [place].4. Other chronic findings as described.This document has been electronically signed by Destini Salvador MD on 07/19/2020 4:29 PM Name Value Range Interpretation Code Description Data Evelyn rce(s) Supporting Document(s) ID Date Data Source [id number] 07/19/2020 04:31:41 PM [facility] MR ANGIOGRAPHY NECK WITHOUT CONTRAST [id number] RESULTInterpreted by:Denver Caldera MDINDICATION: eval for left thalamic stroke.TECHNIQUES: Multisequence multiplanar MR images of the brain without intravenous contrast; 2D TOF were submitted for interpretation of the MRA of the neck: Non-contrast MR angiogram of the brain was performed with axial TOF images. 3D maximum intensity projections were generated. All measurements are per NASCET criteriaCOMPARISON: Noncontrast CT head from 07/19/2020; MRI brain without contrast, 04/14/2018.FINDINGS: MRI Brain: There is encephalomalacia with surrounding gliosis and hemosiderin deposition in the right occipital lobe with ex vacuo dilation of the right occipital horn. Small old lacunar infarct is noted in the left thalamus. There are no areas of restricted diffusion to suggest acute infarct. There are nonspecific scattered foci of T2/FLAIR hyperintensity in bilateral centrum semiovale and periventricular white matter without significant interval change compared with prior study from 2018 and may represent chronic small vessel ischemic disease. There are no extra-axial fluid collection or midline shift. The basal cisterns and foramen magnum are patent. The paranasal sinuses and mastoid cells are normal in signal.MRA Neck: Normal flow related enhancement is noted within the innominate artery, common and internal carotid arteries and the vertebral arteries. The origins of the common carotid and vertebral arteries are not well visualized secondary to motion induced misregistration. There is no evidence of a significant stenosis at the origin of the internal carotid arteries. The left vertebral artery is mildly dominant.MRA Brain: Again seen is focal narrowing of the left A1 segment better appreciated on the MIP images. Otherwise the vessels of the [place] are patent with normal caliber. There is no evidence of aneurysm or arteriovenous malformation. Normal flow related enhancement is noted with the intracranial int ernal carotid arteries, anterior, middle and posterior cerebral arteries. There is no evidence of stenosis, occlusion or dissection. There is no evidence of an aneurysm or vascular malformation.IMPRESSION:1. No evidence of acute infarction.2. Old infarcts as described.3. Patent main arteries of the neck. Redemonstration focal stenosis left A1. Otherwise patent vessels of the [place].4. Other chronic findings as described.This document has been electronically signed by Destini Salvador MD on 07/19/2020 4:29 PM Name Value Range Interpretation Code Description Data Evelyn rce(s) Supporting Document(s) ID Date Data Source [id number] 07/19/2020 04:31:41 PM [facility] MR ANGIOGRAPHY HEAD WITHOUT CONTRAST [id number] RESULTInterpreted by:Destini Salvador [facility] TALIHINAmyrab Dora Gutierrez MDINDICATION: eval for left thalamic stroke.TECHNIQUES: Multisequence multiplanar MR images of the brain without intravenous contrast; 2D TOF were submitted for interpretation of the MRA of the neck: Non-contrast MR angiogram of the brain was performed with axial TOF images. 3D maximum intensity projections were generated. All measurements are per NASCET criteriaCOMPARISON: Noncontrast CT head from 07/19/2020; MRI brain without contrast, 04/14/2018.FINDINGS: MRI Brain: There is encephalomalacia with surrounding gliosis and hemosiderin deposition in the right occipital lobe with ex vacuo dilation of the right occipital horn. Small old lacunar infarct is noted in the left thalamus. There are no areas of restricted diffusion to suggest acute infarct. There are nonspecific scattered foci of T2/FLAIR hyperintensity in bilateral centrum semiovale and periventricular white matter without significant interval change compared with prior study from 2018 and may represent chronic small vessel ischemic disease. There are no extra-axial fluid collection or midline shift. The basal cisterns and foramen magnum are patent. The paranasal sinuses and mastoid cells are normal in signal.MRA Neck: Normal flow related enhancement is noted within the innominate artery, common and internal carotid arteries and the vertebral arteries. The origins of the common carotid and vertebral arteries are not well visualized secondary to motion induced misregistration. There is no evidence of a significant stenosis at the origin of the internal carotid arteries. The left vertebral artery is mildly dominant.MRA Brain: Again seen is focal narrowing of the left A1 segment better appreciated on the MIP images. Otherwise the vessels of the [place] are patent with normal caliber. There is no evidence of aneurysm or arteriovenous malformation. Normal flow related enhancement is noted with the intracranial int ernal carotid arteries, anterior, middle and posterior cerebral arteries. There is no evidence of stenosis, occlusion or dissection. There is no evidence of an aneurysm or vascular malformation.IMPRESSION:1. No evidence of acute infarction.2. Old infarcts as described.3. Patent main arteries of the neck. Redemonstration focal stenosis left A1. Otherwise patent vessels of the [place].4. Other chronic findings as described.This document has been electronically signed by Destini Salvador MD on 07/19/2020 4:29 PM Name Value Range Interpretation Code Description Data Evelyn rce(s) Supporting Document(s) ID Date Data Source [id number] 07/19/2020 12:36:41 PM [facility] Name Value Range Interpretation Code Description Data Evelyn rce(s) Supporting Document(s) Glucose [Mass/volume] in Capillary blood by Glucometer 165 mg/dL 70- 140 [facility] ID Date Data Source [id number] 07/19/2020 09:05:44 AM [facility] Name Value Range Interpretation Code Description Data Evelyn rce(s) Supporting Document(s) Glucose [Mass/volume] in Capillary blood by Glucometer 129 mg/dL 70- 140 [facility] ID Date Data Source [id number] 07/19/2020 08:52:[address] [facility] [address] HEAD WITHOUT CONTRAST [id number] RESU LTInterpreted by:Destini Salvador MDHISTORY: Assess for stroke.COMPARISON: CT head January 15, 2019.TECHNIQUE: Noncontrast CT head. Automated dose-lowering techniques and/or adjustment according to patient size were utilized for this exam.FINDINGS:Again seen is old right [employer] distribution infarct as well as old lacunar type infarcts in the left basal ganglia and thalamus. There is no evidence of acute intracranial bleeding or acute territorial infarct. No edema nor mass effect is seen. There is no evidence of extra-axial fluid collection or midline shift. Mild generalized volume loss with commensurate enlargement of the ventricular system is stable. The basal cisterns are patent.The calvarium is intact. The visualized paranasal sinuses and mastoid air cells are well-aerated. There are atherosclerotic changes along the cavernous ICAs and left intradural vertebral artery.IMPRESSION: No evidence of acute intracranial process.Redemonstration of old infarcts.This document has been electronically signed by Destini Salvador MD on 07/19/2020 8:50 AM Name Value Range Interpretation Code Description Data Evelyn rce(s) Supporting Document(s) ID Date Data Source [id number] 07/19/2020 07:56:40 AM [facility] Name Value Range Interpretation Code Description Data Evelyn rce(s) Supporting Document(s) Platelet aggregation arachidonate induced [Units/volume] in Bloo d 424 ARU <550 [facility] (NOTE)[id number] ARU Therapeutic aspirin r [id number] ARU Non-therapeutic range for aspirin ID Date Data Source [id number] 07/19/2020 06:17:47 AM [facility] Name Value Range Interpretation Code Description Data Evelyn rce(s) Supporting Document(s) Glucose [Mass/volume] in Capillary blood by Glucometer 187 mg/dL 70- 140 [facility] ID Date Data Source [id number] 07/19/2020 05:51:39 AM [facility] Name Value Range Interpretation Code Description Data Evelyn rce(s) Supporting Document(s) Specimen source [Identifier] of Unspecified specimen [facility] SARS-CoV-2 RNA 2018 nCoV Real-Time RT-PCR: NOT DETECTED [facility] Assay Performed [facility] Patients first test for [facility] 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 [facility] Patient has symptoms related to [facility] When did you start to experience these symptoms [Date and time] [Phen X] [facility] Patient was hospitalized because of this [facility] patient was admitted to ICU for [facility] Patient resides in a congregate care setting [facility] status [facility] ID Date Data Source [id number] 07/19/2020 04:10:00 AM [facility] Value Range Interpretation Code Description Data Evelyn rce(s) Supporting Document(s) SARS-CoV-2 RNA [facility] This lab was ordered by [facility] and reported by [facility]. ID Date Data Source [id number] 07/19/2020 05:51:25 AM [facility] Service Cmnt XXX-Imp : NoneRespiratory P CR Panel : PCR ResultsMicroorganism XXX Cult : See Labs Tab for 2019 nCoV RT-PCR resultsHAdV DNA QI LALY+non-probe : Not DetectedHCoV [id number] Nph QI LALY+non-probe : Not DetectedHCoV [id number] Nph QI LALY+non-probe : Not [id number] RNA Nph QI LALY+non-probe : Not [id number] RNA Upper resp QI LALY+probe : Not DetectedhMPV RNA Nph QINAA+non-probe : Not DetectedRV+EV RNA Nph QI LALY+non-probe : Not DetectedFLUAV RNA Nph QI LALY+ non-probe : Not DetectedFLUBV RNA Nph QI LALY+non-probe : Not DetectedHPIV1 RNA NphQINAA+non-probe : Not DetectedHPIV2 RNA Nph QINAA+non-probe : Not DetectedHPVI3 RNA Nph LALY+non-probe : Not DetectedHPIV4 RNA Nph Q LALY+non-probe : Not DetectedRSV RNA Nph Q LALY+non-probe : Not DetectedB pert.PT PrmtNph Q LALY+non-probe : Not DetectedC pneum DNA Nph Q LALY+non-probe : Not DetectedM pneum DNA Nph Q LALY+non-probe : Not DetectedB [id number] DNA Nph LALY+non-probe : Not Detected Name Value Range Interpretation Code Description Data Evelyn rce(s) Supporting Document(s) ID Date Data Source [id number] 07/19/2020 03:44:08 AM [facility] Name Value Range Interpretation Code Description Data Evelyn rce(s) Supporting Document(s) Glucose [Mass/volume] in Capillary blood by Glucometer 260 mg/dL 70- 140 [facility] ID Date Data Source [id number] 07/19/2020 03:44:18 AM [facility] Name Value Range Interpretation Code Description Data Evelyn rce(s) Supporting Document(s) Hemoglobin A1c/Hemoglobin.total in Blood by HPLC 8.3 % 4.0-6.0 [facility] (NOTE)<5.7% Average risk of diabetes (ADA)5.7-6.4% Increased risk of diabetes(ADA)>/= 6.5% Diagnostic for diabetes(ADA) Glucose mean value [Mass/volume] in Blood Estimated fr om glycated hemoglobin 192 mg/dL <126 [facility] ID Date Data Source [id number] 07/19/2020 02:35:55 AM [facility] Name Value Range Interpretation Code Description Data Evelyn rce(s) Supporting Document(s) Leukocytes [#/volume] in Blood by Automated count 17.4 10*3/uL 4-10 [facility] Erythrocytes [#/volume] in Blood by Automated count 3.96 10*6/uL 4.1- 5.3 [facility] Hemoglobin [Mass/volume] in Blood 10.9 g/dL 11.5-15.5 [facility] Hematocrit [Volume Fraction] of Blood by Automated count 34.6 % 3 6-45 L [facility] Erythrocyte mean corpuscular volume [Entitic volume] by Auto mated count 87.4 fL 80-96 [facility] Erythrocyte mean corpuscular hemoglobin [Entitic mass] by Automated count 27.5 pg 27-33 [facility] Erythrocyte mean corpuscular hemoglobin concentration [Mass/volume] by Automated count 31.5 g/dL 32.0-36.0 [facility] distribution width [Ratio] by Automated count 14.0 % 11.5-14.5 [facility] Platelets [#/volume] in Blood by Automated count 464 10*3/uL 150-400 [facility] Differential cell count method - Blood [facility] Neutrophils/100 leukocytes in Blood by Automated count 74 % [facility] Lymphocytes/100 leukocytes in Blood by Automated count 16 % [facility] Monocytes/100 leukocytes in Blood by Automated count 6 % [facility] Eosinophils/100 leukocytes in Blood by Automated count 3 % [facility] Basophils/100 leukocytes in Blood by Automated count 1 % [facility] Neutrophils [#/volume] in Blood by Automated count 12.91 10*3/uL 1.8- 7.0 [facility] Lymphocytes [#/volume] in Blood by Automated count 2.79 10*3/uL 1.2-4 .0 [facility] Monocytes [#/volume] in Blood by Automated count 1.03 10*3/uL 0-0.8 [facility] Eosinophils [#/volume] in Blood by Automated count 0.48 10*3/uL 0-0.5 [facility] Basophils [#/volume] in Blood by Automated count 0.18 10*3/uL 0-0.2 [facility] Nucleated erythrocytes/100 leukocytes [Ratio] in Blood by Automated count 0 /100{WBCs} 0-0 [facility] ID Date Data Source [id number] 07/19/2020 03:08:07 AM [facility] Name Value Range Interpretation Code Description Data Evelyn rce(s) Supporting Document(s) Cholesterol [Mass/volume] in Serum or Plasma 111 mg/dL <200 [facility] Triglyceride [Mass/volume] in Serum or Plasma 242 mg/dL <150 [facility] Cholesterol in HDL [Mass/volume] in Serum or Plasma 35 mg/dL >50 [facility] Cholesterol in LDL [Mass/volume] in Serum or Plasma by calcu lation 28 mg/dL <100 [facility] Cholesterol in VLDL [Mass/volume] in Serum or Plasma by calc ulation 48 mg/dl 16-42 [facility] Cholesterol non HDL [Mass/volume] in Serum or Plasma 76 mg/dL <130 [facility] ID Date Data Source [id number] 07/19/2020 03:08:07 AM EST [facility] Name Value Range Interpretation Code Description Data Evelyn rce(s) Supporting Document(s) Albumin [Mass/volume] in Serum or Plasma by Bromocresol green (BCG) dye binding method 3.8 g/dL 3.5-5.2 [facility] Bilirubin.total [Mass/volume] in Serum or Plasma <1.2 [facility] Calcium [Mass/volume] in Serum or Plasma 9.0 mg/dL 8.6-10.0 [facility] Chloride [Moles/volume] in Serum or Plasma 108 mmol/L 98-107 [facility] Creatinine [Mass/volume] in Serum or Plasma 1.39 mg/dL 0.50-0.90 [facility] Glucose [Mass/volume] in Serum or Plasma 290 mg/dL 70-140 [facility] Alkaline phosphatase [Enzymatic activity/volume] in Serum or Plasma 97 U/L 35-104 [facility] Potassium [Moles/volume] in Serum or Plasma 4.8 mmol/L 3.4-5.1 [facility] Protein [Mass/volume] in Serum or Plasma 6.4 g/dL 6.4-8.3 [facility] Sodium [Moles/volume] in Serum or Plasma 134 mmol/L 136-145 L [facility] Aspartate aminotransferase [Enzymatic activity/volume] in Serum or Plasma 10 U/L <32 [facility] Urea nitrogen [Mass/volume] in Serum or Plasma 24 mg/dL 6-20 [facility] Osmolality of Serum or Plasma by calculation 292 mosm/kg 275-300 [facility] Creatinine/Urea nitrogen [Mass Ratio] in Serum or Plasma 17 [facility] Bicarbonate [Moles/volume] in Serum 17 mmol/L 22-29 L [facility] Alanine aminotransferase [Enzymatic activity/volume] in Seru m or Plasma 11 U/L <33 [facility] Anion gap 3 in Serum or Plasma 8 mmol/L 8-15 [facility] Glomerular filtration rate/1.73 sq M pre dicted among non-blacks [Volume Rate/Area] in Serum or Plasma by Creatinine-based formula (MDRD) 45 mL/min/1.73m2 >60 L [facility] Glomerular filtration rate/1.73 sq M pre dicted among blacks [Volume Rate/Area] in Serum or Plasma by Creatinine-based formula (MDRD) 52 mL/min/1.73m2 >60 [facility] ID Date Data Source [id number] 07/19/2020 03:08:07 AM [facility] Name Value Range Interpretation Code Description Data Evelyn rce(s) Supporting Document(s) Thyrotropin [Units/volume] in Serum or Plasma 1.050 u[IU]/mL 0.270-4. 200 [facility] ID Date Data Source [id number] 07/19/2020 01:49:22 AM [facility] Value Range Interpretation Code Description Data Evelyn rce(s) Supporting Document(s) Glucose [Mass/volume] in Capillary blood by Glucometer 242 mg/dL 70- 140 [facility] ID Date Data Source [id number] 07/18/2020 11:07:25 AM [facility] Name Value Range Interpretation Code Description Data Evelyn rce(s) Supporting Document(s) Progress Note [facility] RBRFUn2kZnHNNxKc05/AEBkzQQCtq9IrUWypPJm6QIczJKBrW2QqDAR1zT2aFKA0FErVJuFtBfFtHEJ3 [facility] [file] 9rcNSHYDnyWsfM3O1znbVipTGfZv7+Wujv1VziS3tn6Nm+CyVUZGdO+conciliation court judge/w32r59N/2RMbchEOa2Uqpn [file] ICAgICAgICAgICAgICAgICAgICAgICAgICAgICAgICAgICAgICAgICAgICAgICAgICAgICAgICAgICAg SHFdEQRkDUEkLRZsOYVnXUAzTTByZEChJX7ZFBVoLO AgICAgICAgICAgICAgICAgICAgICAgICAgICAgICAgICAgICAgICAgICAgICAgICAgICAgICAgICAgIC NiYIKgCKIlHHPtCRSuTUXiFEArKPIqXYVmMFJhZEFxPJYaQL7VWYNwCEOvGSNgCMJiACDsZKNoAHDdTD AgICAgICAgICAgICAgICAgICAgICAgICAgICAgICAg QSUcQPCbSEPhYHMtDQSsRDXyQYUeTWStTGElKHWwBNNqYOVdDWNdUIPxMGMsDG8KYMFyYHTeNSWmBHXi ICAgICAgICAgICAgICAgICAgICAgICAgICAgICAgICAgICAgICAgICAgICAgICAgICAgICAgICAgICAg WWGsNFXcLTGoTJLkRYWxJSFcZFOxXBKgREOoDD3ENM AgICAgICAgICAgICAgICAgICAgICAgICAgICAgICAgICAgICAgICAgICAgICAgICAgICAgICAgICAgIC IsHXWpUAWvJGVrYVGpMKIsIZAnGFSgDYUyHBCaHSEnDOLxTWAbIO2SQEUeIMXwMHPdOKInXQFkYAAtBM AgICAgICAgICAgICAgICAgICAgICAgICAgICAgICAg KVRuUZTvTIHfWZDlWYHfHVQyXJHfPUNkYGWdMHRdNJPwYYGcDPYqSDEfGHLwONKoBX3SPXVtJNIiPWSm ICAgICAgICAgICAgICAgICAgICAgICAgICAgICAgICAgICAgICAgICAgICAgICAgICAgICAgICAgICAg ICAgICAgICAgICAgICAgICAgICAgICAgICAgICAgIA 0KICAgICAgICAgICAgICAgICAgICAgICAgICAgICAgICAgICAgICAgICAgICAgICAgICAgICAgICAgIC OqRWRwVHEmEIRnMVKqJVNzYDHpRRLcLMRwSKBfZRIzUDPeBOEaWVDvTB0MULFiDIFdHSIwQKMiQYCxEH AgICAgICAgICAgICAgICAgICAgICAgICAgICAgICAg MXIhONCwKJRdYHHoLPEeJSIhVJOgSNQkTAHkVVOgTWRaCKDoSASuCIHrGEJeZDPhQGZkPY0YCNYaZWUq ICAgICAgICAgICAgICAgICAgICAgICAgICAgICAgICAgICAgICAgICAgICAgICAgICAgICAgICAgICAg ICAgICAgICAgICAgICAgICAgICAgICAgICAgICAgIC PdPB9JRE53bPBam1Q8BJMgQD1cojy/Fu8WLAnqqhGjeXIdSD9KAbLfNQ6vwy2CUpPdSU1ctp2FEKfUBv LhU0E7sKTiFCEfYRZWNvEfM35aCPndOd02WDmgTNLeLfEcXQf4Pk3HCmAbE1qvVWEyXiR6OBClDzP0UI MsZrN4AATdObJmXHOzKSCoAVCyODSZAPK5DGQkObPg SkEgQVZkIA4KMNTkR257ciHgEv7KYr4ITqNvJC9kfq7CRslsQBDlYdcAJkf3VCrhGI2OtFIlpIQvMFTa PRRBQnErV3lxo5PgNqxdJVVHYTpoWB3Zc6JijMGvKNa+Zc9MWQ3jv1RrUZedTUCdBD8mrd3WODfDRiHr E9LzjCnmDGUog9dsGBKcWJ0skIEgDFO8KWBww1okVU QRrZHeAQFRWPTesDBzAU8lDP7oNWPoOTS1VhV0UNZWQO1FPUPiDWVewOYpLPBoKLAPDA1DWZziHVG1NT EaqlWfvWWpJIibKA1SXWOvtsHfRlrrTVMPALx+Ue9JIU2tt2LjPEpvUSUeTD5qam9GMIhAZxDjV2F0wO JuX9I1XCfrBg8BSWPkDDNfGoPnYGKKHGphVC5EDQ9n iwY3TJ1XfZKkYJJwOLNwwFIqJDn0G45hbMPhSYxvFB4GAIP+Lobo+To3NJNZxHZOdHHPdEbBaJSDFAqWs Q5FhS4DCv2RuE2InEU71wQdcrwOoITgiAU8NSZ4qSYVyGKGURF3VqACjyR6msfGlBxBgAYBNFnVkH10q cARkVZTlWEN0TZPjYv0QNYVjG9LwenTosLvvmlVqRW NyPOXYPU1BDLifixRrmKWagYlcNT60aLovEZ9XGj2SNjBzTU0anf5XgJCbGp0LHJI1CS5WEVXbOWBzUQ VsEGN7OPTlIzRqLAkcREFhFQAkVYH7CEJhGBWbOR6SStWiZLVoZYBoSvRvBTSxMFRygr6SFPYiJNT1Ek wdLZPmIKTmSOCzXGtrLHWsJPImSHZ2OSFhPKJmTE6O XiXqDCMoKDRvNXmtQBWtKGOaxi6TAGHcQWVzGIRfCbKxSKNvHHCrVRlzSHTlXHJ6NIt3FJOzQCPrTG6Q DtTaLQGsXWgtHQPiCGNaYQRzkj1ZXLCyCYTjRLD4EZHoSYBgDXAvHDivEEUoBVFxBwE3XATtMYLiHN7K DhGmCBHjXZTpHGUzRAPtLFNgal4YQPDcRFXkPBNiCM OyDWEmPHGvXEdwOXFwPVA7CwVbTQFcBCYuEN3JXtFsTERkMJU5HTvnHQIaEKNcjp4BDDOiYOLoRXF6PR VyNLLpSNDaBEhdKENkUNJ1OFN2UDIkMJYoKD3HEnBxVAVvPnIhTmMwBKPgBAPvhb5WWNGsIUIfNkH0SI WyLUPvOTQnHGnvZYTsARD3WLYbOMXwBOVfLQ7MKuLp WVZrHlO6TyjxEJFjWRFhkg2BIHYuCFIgAGbaWHVjECQsJFLaPPyhIUQvQSB4RqX9CKNoGHLeOP7MVzHs CERfOaR5EfGxQAZsNPJfsy6XWYFpPYCaIcR3WGNwQMHyJJEmFMbwXTQwSRF6GBb3HBFtVPYxSE0OOqVv LDYnXsu0FDJxIYWfTDRhpu6BUHRnHOTfRJLfOiShNC SdFLUzPVtuDVBjWQW0OvlxTSMnUHTrNR4UOiSoHNWuByx0HXgqQRVyKPCbdq3TYLBkZTQrZEZ7FmRlMS RfRVLkDCxfNCZgWDX3KtP2OMTzYKVmWF6DOcKdKSXmNoc7WnvjYIWsNAIujd8MHMKuEQK3LEy0TfSoWB ZzBZKqRUvsECTgXZYvCWmlCRYsQNKeTA1YSuUvTMYc EQZjHRuhBXNjKEYgxm7SKZKyYJV0RUC6WZVeOCWpWSZjAXrcXYLeCSMfFTJ4NLQpAZXoHE9NAhTqOYKr TUGuJmWcJCXoRJDngr3BXMPmTWE0EqH6VrTgHFGtLOUjAQk7adHokDPvXMv9PV5YD9NdjrYzQRQJTm2H r944AMS3HVAoIe0AN0kwSp1kLJUpZICXBd2UVDu4If deLIS4YYMyNOT0KTj2YnWeKDXlZLLmTaBdG3ToGRz+WSzmVDEmZybkLII1PQV9OQG0FUYxNvKoMzP0OT O1GELfYJ8zIVKUDq7+WQjsiZEjoPetAXQXSmDiOQOcPQvmWCZDOz9Y ID Date Data Source [id number] 07/11/2020 12:48:04 PM [facility] Name Value Range Interpretation Code Description Data Evelyn e(s) Supporting Document(s) Leukocytes [#/volume] in Blood by Automated count 21.3 10*3/uL 4-10 [facility] Erythrocytes [#/volume] in Blood by Automated count 4.03 10*6/uL 4.1- 5.3 [facility] Hemoglobin [Mass/volume] in Blood 11.2 g/dL 11.5-15.5 [facility] Hematocrit [Volume Fraction] of Blood by Automated count 35.3 % 3 6-45 [facility] Erythrocyte mean corpuscular volume [Entitic volume] by Auto mated count 87.6 fL 80-96 [facility] Erythrocyte mean corpuscular hemoglobin [Entitic mass] by Automated count 27.8 pg 27-33 [facility] Erythrocyte mean corpuscular hemoglobin concentration [Mass/volume] by Automated count 31.8 g/dL 32.0-[facility].0 [facility] width [Ratio] by Automated count 14.1 % 11.5-14.5 [facility] Platelets [#/volume] in Blood by Automated count 441 10*3/uL 150-400 [facility] Differential cell count method - Blood [facility] Neutrophils/100 leukocytes in Blood by Automated count 67 % [facility] Lymphocytes/100 leukocytes in Blood by Automated count 24 % [facility] Monocytes/100 leukocytes in Blood by Automated count 6 % [facility] Eosinophils/100 leukocytes in Blood by Automated count 3 % [facility] Basophils/100 leukocytes in Blood by Automated count 0 % [facility] Neutrophils [#/volume] in Blood by Automated count 14.13 10*3/uL 1.8- 7.0 [facility] Lymphocytes [#/volume] in Blood by Automated count 5.17 10*3/uL 1.2-4 .0 [facility] Monocytes [#/volume] in Blood by Automated count 1.33 10*3/uL 0-0.8 [facility] Eosinophils [#/volume] in Blood by Automated count 0.62 10*3/uL 0-0.5 [facility] Basophils [#/volume] in Blood by Automated count 0.06 10*3/uL 0-0.2 [facility] Nucleated erythrocytes/100 leukocytes [Ratio] in Blood by Automated count 0 /100{WBCs} 0-0 [facility] ID Date Data Source [id number] 07/11/2020 01:34:17 PM [facility] Name Value Range Interpretation Code Description Data Evelyn rce(s) Supporting Document(s) Albumin [Mass/volume] in Serum or Plasma by Bromocresol green (BCG) dye binding method 4.0 g/dL 3.5-5.2 [facility] Bilirubin.total [Mass/volume] in Serum or Plasma <1.2 [facility] Calcium [Mass/volume] in Serum or Plasma 9.7 mg/dL 8.6-10.0 [facility] Chloride [Moles/volume] in Serum or Plasma 108 mmol/L 98-107 [facility] Creatinine [Mass/volume] in Serum or Plasma 1.61 mg/dL 0.50-0.90 [facility] Glucose [Mass/volume] in Serum or Plasma 146 mg/dL 70-140 [facility] Alkaline phosphatase [Enzymatic activity/volume] in Serum or Plasma 94 U/L 35-104 [facility] Potassium [Moles/volume] in Serum or Plasma 4.7 mmol/L 3.4-5.1 [facility] Protein [Mass/volume] in Serum or Plasma 6.8 g/dL 6.4-8.3 [facility] Sodium [Moles/volume] in Serum or Plasma 138 mmol/L 136-145 [facility] Aspartate aminotransferase [Enzymatic activity/volume] in Serum or Plasma 11 U/L <32 [facility] Urea nitrogen [Mass/volume] in Serum or Plasma 31 mg/dL 6-20 [facility] Osmolality of Serum or Plasma by calculation 296 mosm/kg 275-300 [facility] Creatinine/Urea nitrogen [Mass Ratio] in Serum or Plasma 19 [facility] Bicarbonate [Moles/volume] in Serum 19 mmol/L 22-29 [facility] Alanine aminotransferase [Enzymatic activity/volume] in Seru m or Plasma 10 U/L <33 [facility] Anion gap 3 in Serum or Plasma 12 mmol/L 8-15 [facility] Glomerular filtration rate/1.73 sq M pre dicted among non-blacks [Volume Rate/Area] in Serum or Plasma by Creatinine-based formula (MDRD) 38 mL/min/1.73m2 >60 [facility] Glomerular filtration rate/1.73 sq M pre dicted among blacks [Volume Rate/Area] in Serum or Plasma by Creatinine-based formula (MDRD) 43 mL/min/1.73m2 >60 [facility] ID Date Data Source [id number] 07/11/2020 01:34:17 PM [facility] Name Value Range Interpretation Code Description Data Evelyn rce(s) Supporting Document(s) Ferritin [Mass/volume] in Serum or Plasma 145 ng/ml 13-150 [facility] ID Date Data Source [id number] 07/11/2020 01:34:17 PM [facility] Name Value Range Interpretation Code Description Data Evelyn rce(s) Supporting Document(s) Iron [Mass/volume] in Serum or Plasma 32 ug/dl 37-145 [facility] Transferrin [Mass/volume] in Serum or Plasma 243 mg/dL 200-360 [facility] Iron binding capacity [Mass/volume] in Serum or Plasma 338 ug/dl 228 -428 [facility] Iron saturation [Mass Fraction] in Serum or Plasma 9.0 % 20-55 [facility] ID Date Data Source [id number] 07/11/2020 01:38:57 PM [facility] Name Value Range Interpretation Code Description Data Evelyn rce(s) Supporting Document(s) Cobalamin (Vitamin B12) [Mass/volume] in Serum or Plasma 2 11-946 [facility] ID Date Data Source [id number] 07/11/2020 01:32:57 PM [facility] Value Range Interpretation Code Description Data Evelyn rce(s) Supporting Document(s) Folate [Mass/volume] in Serum or Plasma >4.77 [facility] ID Date Data Source [id number] 07/11/2020 12:29:47 PM [facility] Value Range Interpretation Code Description Data Evelyn rce(s) Supporting Document(s) Progress Note [facility] CBLBBw7wBlXNPxYd71/OFRdoLELga1XnJSujVWy1NRvcAFVrZ8IlDHA0cU9mMOQ7XNjSXzJsRrZrSUQz lbm [file] [employer]+KlP9dbcOZSeEIwi3OtX3qMfQSWvxdHJcdroJ2VfuRghAqaZTCB0LiC+OV+4DXgLeoGBIHRgFe+Xo [file] ICAgICAgICAgICAgICAgICAgICAgICAgICAgICAgICAgICAgICAgICAgICAgICAgICAgICAgICAgICAg DQogICAgICAgICAgICAgICAgICAgICAgICAgICAgIC AgICAgICAgICAgICAgICAgICAgICAgICAgICAgICAgICAgICAgICAgICAgICAgICAgICAgICAgICAgIC AgICAgICAgICAgDQogICAgICAgICAgICAgICAgICAgICAgICAgICAgICAgICAgICAgICAgICAgICAgIC AgICAgICAgICAgICAgICAgICAgICAgICAgICAgICAg ICAgICAgICAgICAgICAgICAgICAgDQogICAgICAgICAgICAgICAgICAgICAgICAgICAgICAgICAgICAg ICAgICAgICAgICAgICAgICAgICAgICAgICAgICAgICAgICAgICAgICAgICAgICAgICAgICAgICAgICAg ICAgDQogICAgICAgICAgICAgICAgICAgICAgICAgIC AgICAgICAgICAgICAgICAgICAgICAgICAgICAgICAgICAgICAgICAgICAgICAgICAgICAgICAgICAgIC AgICAgICAgICAgICAgDQogICAgICAgICAgICAgICAgICAgICAgICAgICAgICAgICAgICAgICAgICAgIC AgICAgICAgICAgICAgICAgICAgICAgICAgICAgICAg ICAgICAgICAgICAgICAgICAgICAgICAgDQogICAgICAgICAgICAgICAgICAgICAgICAgICAgICAgICAg ICAgICAgICAgICAgICAgICAgICAgICAgICAgICAgICAgICAgICAgICAgICAgICAgICAgICAgICAgICAg ICAgICAgDQogICAgICAgICAgICAgICAgICAgICAgIC AgICAgICAgICAgICAgICAgICAgICAgICAgICAgICAgICAgICAgICAgICAgICAgICAgICAgICAgICAgIC AgICAgICAgICAgICAgICAgDQogICAgICAgICAgICAgICAgICAgICAgICAgICAgICAgICAgICAgICAgIC AgICAgICAgICAgICAgICAgICAgICAgICAgICAgICAg ICAgICAgICAgICAgICAgICAgICAgICAgICAgDQogICAgICAgICAgICAgICAgICAgICAgICAgICAgICAg ICAgICAgICAgICAgICAgICAgICAgICAgICAgICAgICAgICAgICAgICAgICAgICAgICAgICAgICAgICAg ZVWpSOYuDXJtCYw4J5ugDHBnKGIgPN4iFBw2Wb7+DQ hEZdGyWQO6yaYmqQ6HTL2hh5YbUOiwXJXeo0BcEVh3XF2QASBnYAjjZT6JVMomda6QQTBzHTApdWEFe7 tvQbGrHQY4JHQxPybhSR0UPXZkI4kztiVlVPUjXBRAUEubICFFLJmuCSEDYSLvHBOsUuPdTnBpVBYvNP OyYLXBRUV8YSSqLfZbGPOrJNNbJP5POFLyE180yzNu TS9MXb9KCoLgSG5nga3WKjjpANDqKfhZAqo5DIotUY9PpHDwhEX8JADtBSUJBqJvX2shr8DqXJYwRXXB PEqwAP4Go5BhzPQrPTm+Gy8SQA5tj3JjEVs4UOIsUF1kcp9JRVdFRfRiU1IyxQquEPXak8gpGBEwKV7l zLKaLHB4VHEkl4fiTTVEhLUtYDNNFQGdfAXwQY4tWN 8gANUiUTZnPkGcQPNOUM0YNGRqXTRbhXXuNWAiYJFHVO9AEYhwJQF8PMObpdStnOQvUFctEJ9EZXQlvc QgMzkgMCBSDQo+Rc0MGK3he8SoCMq2FSEvOC1nwo3DMYdWOdAhK1R5dIFfA4Z5DMyjWj4GGKNwZQLuHj ynPVKJRCqpLG9RHI3wcfO3FT6QpQRpAOSgVTTcmKNx XAr3C17yxWQmIIvvSH3BJPS+Lobo+Xy2SHXNoADJkHJTwNqXwFTWRYqYyS1NrV7FJs6YwJ8VoIU76lYnb omAnFUnvGP5IPQ7qIGFnWXUATB6UaMRzdG7eyjLuJYYfVBOYEiXfT66jjOJpTQOdJYC2FVFoFj5RTSXi O4TilpTtrEplxnQrBFTcOMKZBD4HDHesjePcqBJzwB lgSQ03cIgqHH9TXe7YAcUnTJ7auy4EaOXcSj9LGHR1Za3NZNMsRMRhDXIhXOZ5GNPwFsXlCBdcOQRyXU NvCIH3KNNuGWWzHV1JEsRmRPLhWGL9LdXnAAUpQQXhau4TSRKiTUQ1ONTxZQBqZBGpYGFzXTrlGFYaGH HiAKT4GFOtZDWdVQ4FUuEwWSNwZMMeNMKxGOByJUFu lj9WSUIvJXKrFGZ6OBTwGZFpAYEwAIuhCQIhCUF9JDB8WRNrHHOcVV7YKaMqIHLqYMimLIOaZKCaYDBc zs6PHFDkBLGkNLy7SpYxJKWsKEMkKEwiMTObDZGvRYz3QQTjKURgRB5YPhRvDTVvUKB1TKzhONPcXITg oj9RANHgTZXxZOH2ToMaJDXeYXXvJMspLPEqRHM6KS Z0RRDqRGUhVP2QToEvZBArRWC3UiPtTRAaLHWlzf2APFMgPRNuDCl5CQCsVVHjWNIhJRjzPXIhCLBbXY k5PLCfGYUfXU5ZJqRhLIVfTrOeYxctDZKyLGLyez6BZFQuLBEgDzT6JvXzDLQcXMEsTAvfEBZkYQV2Ti S7SPCpFGWaBU2UUnOkOFDmEkV7CvMqETVkBTFpzz5G XDUbSPBeJBixNJYzVOJoBALzGOdgBRExBYW5SIJ7UWBvOJOfST3GJrZjUDLkYoPtEAUxRBAfLDTpfh8S KJYrBGPvStF3RFAtGAEkARDaJSflTVVhWGO9KIHfRJVsWJAwUX3BJiJtHSHwEbd2JVclKYXpGCSbrj5Y OAUbVSMiARX4SGYgVOGyVCAgEOvhTCLaJWU6USZ6CV SoWQCdVN2FWlEjUQIzCsl4NLBzVKLoXZUdlo0UZZUbLRXuCYq1FyJyUJEuCAUoJZyfDTJtIOYuZDN0OQ HsNHMgSF9ETsNfRCYdAIT1ZATdOOLyBCAbxa4AFMGfDAE7NLM7GNGsCMAsYUUmVDyrHFCzEIDkBlE8TM JaWQDxLM9HNcZvWUHdNIJrHzIyKDIoVXTdoi5SCHTf KXK8EmC5SGYzNCWaHGSrOZmuKCFzVSVgWbV9QCYzCPTlXS8OSnRjGFZvZTPiWrXvDXTeEIIwdx8ZCYWr RIT9NXJ4JhYiOBBoVEBjRMkdSARuPPW8NtB5VDIlHCEqDE8CPbTaUKYzDRS0VlJnNPOdZLKkzi6NaXGh bVmloo6IEXfPAn2FoVbkMGJjQKurRx2boOI4UFZrPZ KDWi6MdnZpAAXzGGUPKDtoAXFsXCEwKGB1BfkoIxJmWEHpKNDzESdaWeDpHjKsNXN4DPGdOqY8MeP1Kp G0VLMmBeFwUEVbOfFwUETyGoR9GBE8Xwg8SKK+HJ5rFLy+Rw3We9OdtoV9spLsTVn4JQAvGS4QPKQSH2 YNCg== ID Date Data Source [id number] 06/25/2020 12:00:00 AM EDT [facility] Camilo PETERS Patient Name: SHAWNA SHERMAN [id number] [facility] Date of : 1975[facility] [address] Date of Exam: 06/25/2020SrikanthJOHN amador [id number]#: Fax: [phone] EXAM: ARTHROCENTESIS RTSHLDR-ASPIR/INJ STEROID[facility]:The procedure was performed by YANCI Uriarte under the generalsupervision of Dr. Kimball.The benefits and risks including, but not limited to pain, infection,bleeding, and anaphylaxis were explained to the patient and informedconsent was obtained.The right glenohumeral joint space was localized using fluoroscopicguidance. The skin was prepped and draped in a sterile fashion. 1%Lidocaine was used as a local anesthetic. Using fluoroscopic guidance, a#22 gauge spinal needle was inserted and advanced into the joint. 0.5 ccof Omnipaque 300 was injected to verify placement. 6 cc of a solutioncontaining 5 cc of 1% Lidocaine and 1 cc of Kenalog 40 mg was injected intothe joint space. The needle was then removed.The patient tolerated the procedure well and there were no immediatecomplications.Fluoroscopy time was 1 second at 3 pulses/second. This is equal to 1seconds continuous fluoroscopy time which is a 75% reduction in radiation.EKKE Haskins/jmcThank you for referring SHAWNA SHERMAN to our office. Electronically Signed - GIGI KIMBALL MD 06/26/20 18:03 Name Value Range Interpretation Code Description Data Evelyn rce(s) Supporting Document(s) ID Date Data Source [id number] 06/25/2020 12:00:00 AM EDT [facility] Camilo PETERS Patient Name: SHAWNA SHERMAN [id number] [facility] 1975[facility] Date of Exam: 06/25/2020[place] [id number]#: Fax: [phone] EXAM: ARTHROCENTESIS RTSHLDR-ASPIR/INJ STEROID/PAIN [facility] SHOULDER INJECTION:The procedure was performed by James Warren [facility] under the generalsupervision of Dr. Kimball.The benefits and risks including, but not limited to pain, infection,bleeding, and anaphylaxis were explained to the patient and informedconsent was obtained.The right glenohumeral joint space was localized using fluoroscopicguidance. The skin was prepped and draped in a sterile fashion. 1%Lidocaine was used as a local anesthetic. Using fluoroscopic guidance, a#22 gauge spinal needle was inserted and advanced into the joint. 0.5 ccof Omnipaque 300 was injected to verify placement. 6 cc of a solutioncontaining 5 cc of 1% Lidocaine and 1 cc of Kenalog 40 mg was injected intothe joint space. The needle was then removed.The patient tolerated the procedure well and there were no immediatecomplications.Fluoroscopy time was 1 second at 3 pulses/second. This is equal to 1seconds continuous fluoroscopy time which is a 75% reduction in radiation.KEKE Haskins/Emmett norman for referring SHAWNA SHERMAN to our office. Electronically Signed - GIGI KIMBALL MD 06/26/20 18:03 Name Value Range Interpretation Code Description Data Evelyn rce(s) Supporting Document(s) ID Date Data Source LIPID PANEL (CARDIAC RISK) 06/20/2020 09:15:40 AM EDT eCW1 ( [facility]) Name Value Range Interpretation Code Description Data Evelyn rce(s) Supporting Document(s) Triglyceride [Mass/volume] in Serum or Plasma by calculation 242 TRIGLYCERIDES LEVEL eCW1 ([facility]) Cholesterol in HDL [Moles/volume] in Serum or Plasma 35 HDL CHOLESTEROL eCW1 ([facility]) Cholesterol [Moles/volume] in Serum or Plasma 113 CHOLESTEROL LEVEL eCW1 ([facility]) Cholesterol in LDL [Mass/volume] in Serum or Plasma by calculation 30 LDL CHOLESTEROL eCW1 ([facility]) 78 NON-HDL-C eCW1 ([facility]) 3.228 CHOLESTEROL RISK RATIO eCW1 ([facility]) ID Date Data Source VITAMIN B12 LEVEL 06/20/2020 09:15:35 AM EDT [facility]CW[facility] ([facility] Name Value Range Interpretation Code Description Data Evelyn rce(s) Supporting Document(s) > 2000 VITAMIN B12 LEVEL eCW1 ([facility]) ID Date Data Source CBC with Differential 06/20/2020 09:15:30 AM EDT eCW1 ([facility]) Name Value Range Interpretation Code Description Data Evelyn rce(s) Supporting Document(s) 20.6 WHITE BLOOD COUNT eCW1 ([facility]) 91.4 MEAN CORPUSCULAR VOLUME eCW1 ( [facility]) 3.97 RED BLOOD COUNT eCW1 ([facility]) 11.1 HEMOGLOBIN eCW1 ([facility]) 36.3 HEMATOCRIT eCW1 ([facility]) 12.9 RED CELL DISTRIBUTION WIDTH eC W1 ([facility]) 28.0 MEAN CORPUSCULAR HEMOGLOBIN eC W1 ([facility]) 30.6 MEAN CORPUSCULAR HGB CONC eCW1 ([facility]) 538 PLATELET COUNT, AUTOMATED eCW1 ([facility]) 65.2 NEUTROPHILS % eCW1 ([facility]) 2.6 EOS % eCW1 ([facility]) 7.8 MONO % eCW1 ([facility]) 23.1 LYMPH % eCW1 ([facility]) 4.8 LYMPH # eCW1 ([facility]) 13.4 NEUTROPHILS # eCW1 ([facility]) 0.8 BASO % eCW1 ([facility]) 0.2 BASO # eCW1 ([facility]) 0.5 EOS # eCW1 ([facility]) 1.6 MONO # eCW1 ([facility]) ID Date Data Source [id number] 05/25/2020 01:10:00 PM EDT [facility] ([facility]) Name Value Range Interpretation Code Description Data Evelyn rce(s) Supporting Document(s) Hemoglobin A1c/Hemoglobin.total in Blood 6.7 [facility] ([facility]) Glucose [Mass/volume] in Serum or Plasma 64 [facility] ([facility]) ID Date Data Source [id number] 05/10/2020 05:21:27 PM EDT [facility] Name Value Range Interpretation Code Description Data Evelyn rce(s) Supporting Document(s) Progress Note [facility] [id number] lb [file] [id number]8y5r/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 [file] [id number] Procedure Social History Code Duration Value Status Description Data Source(s ) Smoking 06/18/2021 12:00:00 AM EDT Never Smoker completed Never S moker [email or web address] ([facility]) Smoking 06/18/2021 12:00:00 AM EDT Never Smoker completed Never S moker eCW1 ([facility]) Smoking 06/18/2021 12:00:00 AM EDT Never Smoker completed Never S moker eCW1 ([facility]) Smoking 06/18/2021 12:00:00 AM EDT Never Smoker completed Never S moker eCW1 ([facility]) Alcohol intake 05/02/2021 12:00:00 AM EDT Current non-d alban of alcohol (finding) completed Current non-drinker of alcohol (finding) [facility] Tobacco use and exposure 05/02/2021 12:00:00 AM EDT Never used co mpleted Never used [facility] Smoking 05/02/2021 12:00:00 AM EDT Never smoker completed Never s moker [facility] Alcohol intake 04/06/2021 12:00:00 AM EDT Current non-d alban of alcohol (finding) completed Current non-drinker of alcohol (finding) [facility] Alcohol intake 02/14/2021 12:00:00 AM EDT Current non-d alban of alcohol (finding) completed Current non-drinker of alcohol (finding) [facility] Alcohol intake 02/06/2021 12:00:00 AM EDT Current non-d alban of alcohol (finding) completed Current non-drinker of alcohol (finding) [facility] Alcohol intake 01/31/2021 12:00:00 AM EDT Current non-d alban of alcohol (finding) completed Current non-drinker of alcohol (finding) [facility] Smoking 01/03/2021 12:00:00 AM EDT Patient has never smoked co mpleted Patient has never smoked [facility] ([facility]) Smoking 12/18/2020 12:00:00 AM EDT Never Smoker completed Never S moker eCW1 ([facility]) Smoking 12/18/2020 12:00:00 AM EDT Never Smoker completed Never S moker eCW1 ([facility]) Smoking 12/18/2020 12:00:00 AM EDT Never Smoker completed Never S moker eCW1 ([facility]) Smoking 12/18/2020 12:00:00 AM EDT Never Smoker completed Never S moker eCW1 ([facility]) Smoking 12/18/2020 12:00:00 AM EDT Never Smoker completed Never S moker eCW1 ([facility]) Smoking 12/18/2020 12:00:00 AM EDT Never Smoker completed Never S moker eCW1 ([facility]) Smoking 12/18/2020 12:00:00 AM EDT Never Smoker completed Never S moker eCW1 ([facility]) Smoking 12/18/2020 12:00:00 AM EDT Never Smoker completed Never S moker eCW1 ([facility]) Alcohol intake 10/04/2020 12:00:00 AM EST Current non-d alban of alcohol (finding) completed Current non-drinker of alcohol (finding) [facility] Alcohol intake 09/25/2020 12:00:00 AM EST Current non-d alban of alcohol (finding) completed Current non-drinker of alcohol (finding) [facility] Alcohol intake 09/07/2020 12:00:00 AM EST Current non-d alban of alcohol (finding) completed Current non-drinker of alcohol (finding) [facility] Alcohol intake 09/05/2020 12:00:00 AM EST Current non-d alban of alcohol (finding) completed Current non-drinker of alcohol (finding) [facility] Smoking 08/06/2020 12:00:00 AM EST Never Smoker completed Never S moker eCW1 ([facility]) Smoking 08/06/2020 12:00:00 AM EST Never Smoker completed Never S moker eCW1 ([facility]) Smoking 08/06/2020 12:00:00 AM EST Never Smoker completed Never S moker eCW1 ([facility]) Smoking 08/06/2020 12:00:00 AM EST Never Smoker completed Never S moker eCW1 ([facility]) Smoking 08/06/2020 12:00:00 AM EST Never Smoker completed Never S moker eCW1 ([facility]) Smoking 08/06/2020 12:00:00 AM EST Never Smoker completed Never S moker eCW1 ([facility]) Smoking 08/06/2020 12:00:00 AM EST Never Smoker completed Never S moker eCW1 ([facility]) Smoking 08/06/2020 12:00:00 AM EST Never Smoker completed Never S moker eCW1 ([facility]) Smoking 08/06/2020 12:00:00 AM EST Never Smoker completed Never S moker eCW1 ([facility]) Smoking 07/31/2020 12:00:00 AM EST Never Smoker completed Never S moker eCW1 ([facility]) Smoking 07/31/2020 12:00:00 AM EST Never Smoker completed Never S moker eCW1 ([facility]) Alcohol intake 07/19/2020 12:00:00 AM EST Current non-d alban of alcohol (finding) completed Current non-drinker of alcohol (finding) [facility] Alcohol intake 07/18/2020 12:00:00 AM EST Current non-d alban of alcohol (finding) completed Current non-drinker of alcohol (finding) [facility] Alcohol intake 07/11/2020 12:00:00 AM EST Current non-d alban of alcohol (finding) completed Current non-drinker of alcohol (finding) [facility] Smoking 06/18/2020 12:00:00 AM EDT Never Smoker completed Never S moker eCW1 ([facility]) Smoking 06/18/2020 12:00:00 AM EDT Never Smoker completed Never S moker eCW1 ([facility]) Smoking 06/18/2020 12:00:00 AM EDT Never Smoker completed Never S moker eCW1 ([facility]) Smoking 06/18/2020 12:00:00 AM EDT Never Smoker completed Never S moker eCW1 ([facility]) Smoking 06/18/2020 12:00:00 AM EDT Never Smoker completed Never S moker eCW1 ([facility]) Vital Signs ID Date Data Source UNK Name Value Range Interpretation Code Description Data Source(s) Body weight 246 [lb_av] 246 [lb_av] eCW1 ([facility]) Respiratory rate 20 /min 20 /min eCW1 ([facility]) Body temperature 97 [degF] 97 [degF] eCW1 ([facility]) Systolic blood pressure 130 mm[Hg] 130 mm[Hg] e CW1 ([facility]) Body height 61 [in_i] 61 [in_i] [facility] Body mass index (BMI) [Ratio] 46.48 kg/m2 46.48 kg/m2 W1 ([facility]) Heart rate 80 /min 80 /min eCW1 ([facility]) Diastolic blood pressure 80 mm[Hg] 80 mm[Hg] eCW1 ([facility]) Diastolic blood pressure 84 mm[Hg] 84 mm[Hg] MEDENT ([facility]) Systolic blood pressure 146 mm[Hg] 146 mm[Hg] M EDENT ([facility]) Body weight 249.00 [lb_av] 249.00 [lb_av] MEDEN T ([facility]) Heart rate 88 /min 88 /min MEDENT ([facility]) Body height 61.50 [in_i] 61.50 [in_i] MEDENT ([facility]) 5'1.50" Body mass index (BMI) [Ratio] 46.3 kg/m2 46.3 k g/m2 MEDENT ([facility]) Oxygen saturation in Arterial blood by Pulse oximetry 98 % 98 % MEDENT ([facility]) Oxygen saturation in Arterial blood by Pulse oximetry 97 % 97 % MEDENT ([facility]) Heart rate 95 /min 95 /min MEDENT ([facility]) Body temperature 96.4 [degF] 96.4 [degF] MEDENT ([facility]) Body height 61.50 [in_i] 61.50 [in_i] MEDENT ([facility]) 5'1.50" Systolic blood pressure 118 mm[Hg] 118 mm[Hg] M EDENT ([facility]) Body weight 234.00 [lb_av] 234.00 [lb_av] MEDEN T ([facility]) Body mass index (BMI) [Ratio] 43.5 kg/m2 43.5 k g/m2 MEDENT ([facility]) Diastolic blood pressure 76 mm[Hg] 76 mm[Hg] MEDENT ([facility]) Body weight 235 [lb_av] 235 [lb_av] eCW1 ([facility]) Body height 61 [in_i] 61 [in_i] eCW1 ([facility] Body mass index (BMI) [Ratio] 44.40 kg/m2 44.40 kg/m2 W1 ([facility]) Heart rate 92 /min 92 /min eCW1 ([facility]) Respiratory rate 18 /min 18 /min eCW1 ([facility]) Body temperature 96.7 [degF] 96.7 [degF] eCW1 ( [facility]) Systolic blood pressure 128 mm[Hg] 128 mm[Hg] e CW1 ([facility]) Diastolic blood pressure 70 mm[Hg] 70 mm[Hg] eCW1 ([facility]) Body temperature 96.8 [degF] 96.8 [degF] MEDENT ([facility]) Systolic blood pressure 130 mm[Hg] 130 mm[Hg] M EDENT ([facility]) Diastolic blood pressure 78 mm[Hg] 78 mm[Hg] MEDENT ([facility]) Heart rate 83 /min 83 /min MEDENT ([facility]) Body temperature 97.0 [degF] 97.0 [degF] MEDENT ([facility]) Body height 61.50 [in_i] 61.50 [in_i] MEDENT ([facility]) 5'1.50" Body weight 239.00 [lb_av] 239.00 [lb_av] MEDEN T ([facility]) Body mass index (BMI) [Ratio] 44.4 kg/m2 44.4 k g/m2 MEDENT ([facility] Oxygen saturation in Arterial blood by Pulse oximetry 98 % 98 % MEDENT ([facility]) Body weight 233 [lb_av] 233 [lb_av] eCW1 ([facility]) Body height 61 [in_i] 61 [in_i] eCW1 ([facility] Body mass index (BMI) [Ratio] 44.02 kg/m2 44.02 kg/m2 eC1 ([facility]) Heart rate 114 /min 114 /min W1 ([facility]) Respiratory rate 18 /min 18 /min eCW1 ([facility]) Body temperature 96.9 [degF] 96.9 [degF] eCW1 ( [facility]) Systolic blood pressure 128 mm[Hg] 128 mm[Hg] e CW1 ([facility]) Diastolic blood pressure 74 mm[Hg] 74 mm[Hg] eCW1 ([facility]) Systolic blood pressure 122 mm[Hg] 122 mm[Hg] e CW1 ([facility]) Body weight 232 [lb_av] 232 [lb_av] eCW1 ([facility]) Body height 61 [in_i] 61 [in_i] eCW1 ([facility] Body mass index (BMI) [Ratio] 43.83 kg/m2 43.83 kg/m2 eCW1 ([facility]) Heart rate 116 /min 116 /min eCW1 ([facility]) Respiratory rate 18 /min 18 /min eCW1 ([facility]) Body temperature 97.2 [degF] 97.2 [degF] eCW1 ( [facility]) Diastolic blood pressure 70 mm[Hg] 70 mm[Hg] eCW1 ([facility]) Body height 61.50 [in_i] 61.50 [in_i] MEDENT ([facility]) 5'1.50" Body weight 236.31 [lb_av] 236.31 [lb_av] MEDEN T ([facility] Systolic blood pressure 132 mm[Hg] 132 mm[Hg] M EDENT ([facility]) Diastolic blood pressure 80 mm[Hg] 80 mm[Hg] MEDENT ([facility] Heart rate 90 /min 90 /min MEDENT ([facility] Body temperature 96.6 [degF] 96.6 [degF] MEDENT ([facility]) Body mass index (BMI) [Ratio] 43.9 kg/m2 43.9 k g/m2 MEDENT ([facility] ) Oxygen saturation in Arterial blood by Pulse oximetry 96 % 96 % MEDENT ([facility]) Body height 61.50 [in_i] 61.50 [in_i] MEDENT ([facility]) 5'1.50" Body mass index (BMI) [Ratio] 43.9 kg/m2 43.9 k g/m2 MEDENT ([facility]) Systolic blood pressure 128 mm[Hg] 128 mm[Hg] M EDENT ([facility]) Diastolic blood pressure 80 mm[Hg] 80 mm[Hg] MEDENT ([facility] Heart rate 91 /min 91 /min MEDENT ([facility]) Body temperature 97.1 [degF] 97.1 [degF] MEDENT ([facility]) Body weight 236.31 [lb_av] 236.31 [lb_av] MEDEN T ([facility]) Oxygen saturation in Arterial blood by Pulse oximetry 99 % 99 % MEDENT ([facility]) Body weight 235 [lb_av] 235 [lb_av] eCW1 ([facility]) Body height 61 [in_i] 61 [in_i] eCW1 ([facility] Body mass index (BMI) [Ratio] 44.40 kg/m2 44.40 kg/m2 W1 ([facility]) Heart rate 111 /min 111 /min eCW1 ([facility]) Respiratory rate 18 /min 18 /min W1 ([facility]) Body temperature 96.1 [degF] 96.1 [degF] eCW1 ( [facility]) Systolic blood pressure 122 mm[Hg] 122 mm[Hg] e CW1 ([facility]) Diastolic blood pressure 78 mm[Hg] 78 mm[Hg] eCW1 ([facility]) Systolic blood pressure 118 mm[Hg] 118 mm[Hg] M EDENT ([facility]) Body weight 234.50 [lb_av] 234.50 [lb_av] MEDEN T ([facility]) Body mass index (BMI) [Ratio] 43.6 kg/m2 43.6 k g/m2 MEDENT ([facility]) Oxygen saturation in Arterial blood by Pulse oximetry 98 % 98 % MEDENT ([facility]) Diastolic blood pressure 78 mm[Hg] 78 mm[Hg] MEDENT ([facility]) Heart rate 93 /min 93 /min MEDENT ([facility]) Body height 61.50 [in_i] 61.50 [in_i] MEDENT ([facility]) 5'1.50" ID Date Data Source [id number] 02/06/2021 10:05:36 AM [facility] Name Value Range Interpretation Code Description Data Source(s) WEIGHT RECORDED 228 lb 228 lb [facility] ID Date Data Source [id number] 02/18/2021 12:14:20 PM [facility] Name Value Range Interpretation Code Description Data Source(s) WEIGHT RECORDED 234.4 lb 234.4 lb [facility] Body height Measured 61 in 61 in [facility] ID Date Data Source [id number] 10/08/2020 09:17:44 AM [facility] Name Value Range Interpretation Code Description Data Source(s) Body height Measured 61 in 61 in [facility] ID Date Data Source [id number] 10/03/2020 01:08:46 PM [facility] Name Value Range Interpretation Code Description Data Source(s) PREFERRED NAME Shawna Shawna [facility] ID Date Data Source [id number] 09/23/2020 07:09:24 AM [facility] Name Value Range Interpretation Code Description Data Source(s) PREFERRED NAME Shawna Victorhanie [facility] ID Date Data Source [id number] 11/19/2020 09:55:58 PM EDT [facility] Name Value Range Interpretation Code Description Data Source(s) PREFERRED NAME Shawna Victorhanie [facility] ID Date Data Source [id number] 09/06/2020 09:24:38 AM [facility] Name Value Range Interpretation Code Description Data Source(s) WEIGHT RECORDED 232 lb 232 lb [facility] Body height Measured 61 in 61 in [facility] ID Date Data Source [id number] 07/20/2020 03:09:34 PM [facility] Name Value Range Interpretation Code Description Data Source(s) TRANSFER FROM [facility] ID Date Data Source [id number] [facility] Name Value Range Interpretation Code Description Data Source(s) WEIGHT RECORDED 240.3 lb 240.3 lb [facility] Body height Measured 61 in 61 in [facility] TRANSFER FROM [facility] ID Date Data Source [id number] 09/11/2020 02:03:11 PM [facility] Name Value Range Interpretation Code Description Data Source(s) WEIGHT RECORDED 240 lb 240 lb [facility] PREFERRED NAME Shawna Matos [facility] Patient Treatment Plan of Care Planned Activity Planned Date Details Description Data Source (s) onabotulinumtoxinA 100 UNT/ML Injectable Solution 05/09/2021 01: 15:00 PM [facility] dextrose 50 % IV solution 25 mL 04/07/2021 03:25:47 PM [facility] Glucagon 1 MG Injection 04/07/2021 03:25:47 PM [facility] Glucose 0.417 MG/MG Oral Gel 04/07/2021 03:25:47 PM [facility] dextrose 50 % IV solution 25 mL 04/06/2021 06:35:15 AM [facility] Glucagon 1 MG Injection 04/06/2021 06:35:15 AM [facility] Glucose 0.417 MG/MG Oral Gel 04/06/2021 06:35:15 AM [facility] Meclizine Hydrochloride 12.5 MG Oral Tablet 04/06/2021 06:00:20 AM [facility] gabapentin 300 MG Oral Capsule 03/11/2021 12:00:00 AM [facility] onabotulinumtoxinA 100 UNT/ML Injectable Solution 02/14/2021 01: 30:00 PM [facility] Prednisone 10 MG Oral Tablet 01/31/2021 12:00:00 AM [facility] Cyclobenzaprine hydrochloride 5 MG Oral Tablet 01/31/2021 12:00:00 AM [facility] Riboflavin 100 MG Oral Tablet 01/31/2021 12:00:00 AM [facility] Magnesium Oxide 400 MG Oral Tablet 01/31/2021 12:00:00 AM [facility] Ubrogepant 50 MG Oral Tablet 01/31/2021 12:00:00 AM [facility] Lisinopril 5 MG Oral Tablet 01/17/2021 12:00:00 AM [facility] onabotulinumtoxinA 100 UNT/ML Injectable Solution 11/08/2020 01: 45:00 PM [facility] Amlodipine 2.5 MG Oral Tablet 09/12/2020 12:00:00 AM [facility] Magnesium Oxide 400 MG Oral Tablet 09/05/2020 12:00:00 AM [facility] Riboflavin 100 MG Oral Tablet 09/05/2020 12:00:00 AM [facility] topiramate 50 MG Oral Tablet 09/05/2020 12:00:00 AM [facility] topiramate 50 MG Oral Tablet 09/05/2020 12:00:00 AM [facility] topiramate 25 MG Oral Tablet 09/05/2020 12:00:00 AM [facility] onabotulinumtoxinA 100 UNT/ML Injectable Solution 08/02/2020 01: 45:00 PM [facility] Mupirocin 0.02 MG/MG Topical Ointment 07/31/2020 12:00:00 AM [facility] Cephalexin 500 MG Oral Capsule 07/31/2020 12:00:00 AM [facility] Cephalexin 500 MG Oral Capsule [Keflex] 07/31/2020 12:00:00 AM [place] [id number] ([facility]) Mupirocin 0.02 MG/MG Topical Ointment 07/31/2020 12:00:[address] AM [address] [facility] ([facility]) Cephalexin 500 MG Oral Capsule [Keflex] 07/31/2020 12:00:[address] AM EST [facility] ([facility]) Mupirocin 0.02 MG/MG Topical Ointment 07/31/2020 12:00:00 AM [facility] eC ([facility]) Admelog SoloStar 100 UNIT/ML Subcutaneous Solution Pen -injector 07/25/2020 12:00:00 AM [facility] Lisinopril 20 MG Oral Tablet 07/21/2020 12:00:00 AM [facility] dextrose 50 % IV solution 25 mL 07/19/2020 02:03:33 AM [facility] Glucagon 1 MG Injection 07/19/2020 02:03:33 AM [facility] Glucose 0.417 MG/MG Oral Gel 07/19/2020 02:03:33 AM [facility] topiramate 25 MG Oral Tablet [Topamax] 06/15/2020 12:00:00 AM EDT eCW1 ([facility]) topiramate 25 MG Oral Tablet [Topamax] 06/15/2020 12:00:00 AM EDT eCW1 ([facility]) topiramate 25 MG Oral Tablet [Topamax] 06/15/2020 12:00:00 AM EDT eCW1 ([facility]) onabotulinumtoxinA 100 UNT/ML Injectable Solution 05/10/2020 01: 15:00 PM [facility] Menthol 160 MG/ML Topical [place] 05/10/2020 12:00:00 AM [facility] Lidocaine Hydrochloride 0.02 MG/MG Topical Gel 04/26/2020 12:00:00 AM [facility] Ubrogepant 50 MG Oral Tablet 04/19/2020 12:00:00 AM [facility] Riboflavin 100 MG Oral Tablet 10/04/2019 12:00:00 AM [facility] Magnesium Oxide 400 MG Oral Tablet 10/04/2019 12:00:00 AM [facility] topiramate 50 MG Oral Tablet 10/04/2019 12:00:00 AM [facility] topiramate 25 MG Oral Tablet 10/04/2019 12:00:00 AM [facility] ferrous gluconate 324 MG Oral Tablet 09/30/2019 12:00:00 AM [facility] Vitamin B 12 1 MG Extended Release Oral Tablet 09/27/2019 12:00:00 AM [facility] Lisinopril 5 MG Oral Tablet 04/25/2019 12:00:00 AM [facility] atorvastatin 80 MG Oral Tablet [facility] 24 HR Metformin hydrochloride 500 MG Extended Release Oral Tablet [facility]
[2021-07-06] MEDS ORDERED: METOCLOPRAMIDE INJ 10MG/2ML VIAL (J2765 PER 1) IV ONE (15:40)
[2021-07-06] MEDS ORDERED: ACETAMINOPHEN 500 MG TAB PO ONE (15:40)
[2021-07-06] MEDS ORDERED: diphenhydrAMINE 50MG/ML VIAL (J1200) IV ONE (15:40)
[2021-07-06] MEDS ORDERED: NS 1,000 ML IV ONE (15:40)
--- NOTE | 2021-07-06 17:41 | ECGEPIP ---
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
[2021-07-06 19:09] VITALS: BP 116/67
== END 2021-07-06 19:12 | disposition home or self-care (01) ==
LOC: M ED 13:47 → EDBD 13:47 → M ED 19:12
DX: G43.909 Migraine, unspecified, not intractable, without status migrainosus (principal); G40.89 Other seizures; I12.9 Hypertensive chronic kidney disease with stage 1 through stage 4 chronic kidney disease, or unspecified chronic kidney disease; N18.30 Chronic kidney disease, stage 3 unspecified; J45.909 Unspecified asthma, uncomplicated; Z86.73 Personal history of transient ischemic attack (TIA), and cerebral infarction without residual deficits; Z79.899 Other long term (current) drug therapy; Z79.82 Long term (current) use of aspirin; Z79.4 Long term (current) use of insulin
CPT/HCPCS: 70450; 80048; 82550; 82553; 84702; 84703; 85025; 85610; 85730; 93005; 93041; 94760; 96361; 96374; 96375; 99284; J1200; J2765

== ENCOUNTER → 2021-07-09 | Outpatient (REF) | payer OTHER | LOC: M SFHCWAGY 13:16 | PROVIDERS: ATTEND Nurse Practitioner Women's Health | DX: Z12.4 Encounter for screening for malignant neoplasm of cervix (principal); R87.619 Unspecified abnormal cytological findings in specimens from cervix uteri ==

== ENCOUNTER → 2021-07-24 | Outpatient (REF) | payer OTHER | LOC: M LAB REF 13:13 | PROVIDERS: ATTEND Internal Medicine Nephrology | DX: E83.42 Hypomagnesemia (principal) ==

== ENCOUNTER → 2021-09-27 | Outpatient (REF) | payer OTHER ==
[~2021-09-27] MED LIST changes: -LEVO500T3 PO; +LEVO500T4 PO; -MONT10TA10 PO; +MONT10TA97 PO
== END ==
LOC: M LAB REF 13:08
PROVIDERS: ATTEND Nurse Practitioner Family
DX: E83.42 Hypomagnesemia (principal)

== ENCOUNTER → 2022-03-21 | Outpatient (CLI) | payer OTHER ==
[2022-03-21 10:25] LABS: BASO # 0.1 10^3/uL (0.0-0.2); BASO % 0.8 % (0.0-1.0); EOS # 0.6 10^3/uL (0.0-0.5); EOS % 3.5 % (0.0-3.0); HEMATOCRIT 34.4 % (36.0-47.0); LYMPH # 4.5 10^3/uL (1.5-5.0); LYMPH % 26.2 % (24.0-44.0); MEAN CORPUSCULAR HEMOGLOBIN 29.9 pg (27.0-33.0); MEAN CORPUSCULAR VOLUME 93.5 fl (80.0-96.0); MONO # 1.3 10^3/uL (0.0-0.8); MONO % 7.3 % (2.0-8.0); NEUTROPHILS # 10.6 10^3/uL (1.5-8.5); NEUTROPHILS % 61.6 % (36.0-66.0); PLATELET COUNT, AUTOMATED 378 10^3/uL (150-450); RED BLOOD COUNT 3.68 10^6/uL (4.00-5.40); WHITE BLOOD COUNT 17.2 10^3/uL (4.0-10.0)
[2022-03-21 11:48] LABS: FERRITIN 67 NG/ML (8-252); IRON (FE) 38 UG/DL (50-170)
[2022-03-21 12:48] LABS: VITAMIN B12 LEVEL 1171 PG/ML (247-911)
== END ==
LOC: M PLALAB 08:35
PROVIDERS: ATTEND Physician Assistant
DX: D50.9 Iron deficiency anemia, unspecified (principal); Z86.39 Personal history of other endocrine, nutritional and metabolic disease

== ENCOUNTER → 2022-03-31 | Outpatient (CLI) | payer OTHER ==
[~2022-03-31] MED LIST changes: +LEVO1TAB39 PO; -LEVO500T4 PO
== END ==
LOC: M RAD 13:20
PROVIDERS: ATTEND Physician Assistant
DX: M75.21 Bicipital tendinitis, right shoulder (principal); S40.021A Contusion of right upper arm, initial encounter

== ENCOUNTER → 2022-04-02 | Outpatient (CLI) | payer OTHER ==
[2022-04-02 10:49] LABS: BASO # 0.2 10^3/uL (0.0-0.2); BASO % 0.7 % (0.0-1.0); EOS # 0.5 10^3/uL (0.0-0.5); EOS % 2.3 % (0.0-3.0); HEMOGLOBIN 11.4 g/dl (12.0-15.5); LYMPH # 5.1 10^3/uL (1.5-5.0); LYMPH % 25.4 % (24.0-44.0); MEAN CORPUSCULAR HEMOGLOBIN 29.6 pg (27.0-33.0); MEAN CORPUSCULAR HGB CONC 31.7 g/dl (32.0-36.5); MEAN CORPUSCULAR VOLUME 93.5 fl (80.0-96.0); MONO # 1.4 10^3/uL (0.0-0.8); NEUTROPHILS # 12.9 10^3/uL (1.5-8.5); NEUTROPHILS % 63.8 % (36.0-66.0); PLATELET COUNT, AUTOMATED 440 10^3/uL (150-450); RED BLOOD COUNT 3.85 10^6/uL (4.00-5.40); WHITE BLOOD COUNT 20.2 10^3/uL (4.0-10.0)
[2022-04-02 12:17] LABS: C REACTIVE PROTEIN QUANTITATIV 0.79 MG/DL (0.00-0.30); PERCENT SATURATION 9.6 % (13.2-45.0)
== END ==
LOC: M PLALAB 08:59
PROVIDERS: ATTEND Physician Assistant
DX: D72.829 Elevated white blood cell count, unspecified (principal); D50.9 Iron deficiency anemia, unspecified; I69.30 Unspecified sequelae of cerebral infarction

== ENCOUNTER → 2022-04-03 | Outpatient (REF) | payer OTHER | LOC: M SFHCPLAZ 12:55 | PROVIDERS: ATTEND Physician Assistant | DX: J02.9 Acute pharyngitis, unspecified (principal) ==

== ENCOUNTER 2022-04-09 11:45 | Outpatient (CLI) | payer OTHER ==
[~2022-04-09 11:45] MED LIST changes: +ALBUTEROL SULFATE 2.5 MG/0.5 ML INH NEB SOLN INH PRN; +EPINEPHrine INJ 1 MG/ML 1ML AMP IM PRN; -SYST1SOL4 OP; +SYST1SOL4 OU; +TRES1INJ SC; -TRES1INJ SQ; +diphenhydrAMINE 50MG/ML VIAL (J1200) IV PRN; +methylPREDNISolone 125MG 2ML VIAL IV PRN
[2022-04-09 11:55] VITALS: BP 210/110
[2022-04-09] MEDS ORDERED: NS 1,000 ML IV SCH (12:00)
[2022-04-09] MEDS ORDERED: FERRIC CARBOXYMALTOSE INJ 750 MG in NS 250 ML (>50kg) IV ONE ×3 (12:00)
[2022-04-09] MEDS ORDERED: LISI5TAB11 PO (12:59)
[2022-04-09] MEDS ORDERED: GABA-283 PO (15:02)
[2022-04-09] MEDS ORDERED: FOLI1TAB11 PO (15:02)
[2022-04-09] MEDS ORDERED: DULA3PEN SC (15:02)
[2022-04-09] MEDS ORDERED: ACET1TAB55 PO (15:02)
[2022-04-09] MEDS ORDERED: DIVA500T9 PO (15:02)
[2022-04-09] MEDS ORDERED: DIPH25CA32 PO (16:11)
[2022-04-09] MEDS ORDERED: CYCL5TAB PO (16:11)
[2022-04-09] MEDS ORDERED: UBRO50TA PO (16:11)
[2022-04-09] MEDS ORDERED: REGL10TA6 PO (16:11)
[2022-04-09] MEDS ORDERED: FURO20TA2 PO (16:11)
== END 2022-04-09 12:40 | disposition home or self-care (01) ==
LOC: M INFU 11:45
PROVIDERS: ATTEND Physician Assistant
DX: D50.9 Iron deficiency anemia, unspecified (principal); Z88.8 Allergy status to other drugs, medicaments and biological substances

== ENCOUNTER 2022-04-09 12:47 | Inpatient (IN) | payer OTHER ==
[~2022-04-09] VITALS: Ht 154.9 cm; Wt 125.7 kg
[~2022-04-09 12:47] MED LIST changes: -ALBUTEROL SULFATE 2.5 MG/0.5 ML INH NEB SOLN INH PRN; -EPINEPHrine INJ 1 MG/ML 1ML AMP IM PRN; -diphenhydrAMINE 50MG/ML VIAL (J1200) IV PRN; -methylPREDNISolone 125MG 2ML VIAL IV PRN
[2022-04-09] MEDS ORDERED: LISI5TAB11 PO (12:59)
[2022-04-09] MEDS ORDERED: LABETALOL 100MG/20ML VIAL IV STA (13:13)
[2022-04-09 13:41] LABS: BASO # 0.1 10^3/uL (0.0-0.2); BASO % 0.7 % (0.0-1.0); EOS # 0.5 10^3/uL (0.0-0.5); EOS % 2.3 % (0.0-3.0); HEMATOCRIT 38.1 % (36.0-47.0); HEMOGLOBIN 12.3 g/dl (12.0-15.5); LYMPH # 4.4 10^3/uL (1.5-5.0); LYMPH % 21.8 % (24.0-44.0); MEAN CORPUSCULAR HEMOGLOBIN 29.5 pg (27.0-33.0); MEAN CORPUSCULAR HGB CONC 32.3 g/dl (32.0-36.5); MEAN CORPUSCULAR VOLUME 91.4 fl (80.0-96.0); MONO % 8.9 % (2.0-8.0); NEUTROPHILS # 13.1 10^3/uL (1.5-8.5); NEUTROPHILS % 65.5 % (36.0-66.0); PLATELET COUNT, AUTOMATED 439 10^3/uL (150-450); RED BLOOD COUNT 4.17 10^6/uL (4.00-5.40)
[2022-04-09 14:12] LABS: MONO # 1.8 10^3/uL (0.0-0.8)
[2022-04-09 14:13] LABS: RSV AMPLIFICATION NEGATIVE (NEGATIVE)
[2022-04-09 14:31] LABS: ALT/SGPT 22 U/L (12-78); BILIRUBIN,DIRECT < 0.1 MG/DL (0.0-0.2); BILIRUBIN,TOTAL 0.4 MG/DL (0.2-1.0); BLOOD UREA NITROGEN 35 MG/DL (7-18); CALCIUM LEVEL 9.8 MG/DL (8.5-10.1); CARBON DIOXIDE LEVEL 24 MEQ/L (21-32); CHLORIDE LEVEL 104 MEQ/L (98-107); CREATININE FOR GFR 1.59 MG/DL (0.55-1.30); FREE T4 1.06 NG/DL (0.76-1.46); GLOMERULAR FILTRATION RATE 36.9 (>58); GLUCOSE, FASTING 216 MG/DL (70-100); SODIUM LEVEL 137 MEQ/L (136-145); TOTAL PROTEIN 6.8 GM/DL (6.4-8.2)
[2022-04-09] MEDS ORDERED: DULA3PEN SC (15:02)
[2022-04-09] MEDS ORDERED: FOLI1TAB11 PO (15:02)
[2022-04-09] MEDS ORDERED: DIVA500T9 PO (15:02)
[2022-04-09] MEDS ORDERED: GABA-283 PO (15:02)
[2022-04-09] MEDS ORDERED: ACET1TAB55 PO (15:02)
[2022-04-09] MEDS ORDERED: LABETALOL 100MG TAB PO ONE (15:40)
[2022-04-09] MEDS ORDERED: GLUCAGON INJ 1MG VIAL SC PRN (15:50)
[2022-04-09] MEDS ORDERED: DEXTROSE 50% 50 ML SYRINGE IV PRN (15:50)
[2022-04-09] MEDS ORDERED: GLUCOSE 4GM CHEW TABLET PO PRN (15:50)
[2022-04-09] MEDS ORDERED: REGL10TA6 PO (16:11)
[2022-04-09] MEDS ORDERED: DIPH25CA32 PO (16:11)
[2022-04-09] MEDS ORDERED: FURO20TA2 PO (16:11)
[2022-04-09] MEDS ORDERED: CYCL5TAB PO (16:11)
[2022-04-09] MEDS ORDERED: UBRO50TA PO (16:11)
[2022-04-09] MEDS ORDERED: HOME MED LIST COMPLETE! XX SCH (16:15)
[2022-04-09 17:35] VITALS: BP 164/100
[2022-04-09] MEDS: INSULIN LISPRO (NovoLOG) PER UNIT SC SCH (18:50)
[2022-04-09 20:13] VITALS: BP 134/80
[2022-04-09] MEDS: GABAPENTIN 400MG CAP PO SCH (20:52)
[2022-04-09] MEDS: MECLIZINE 25 MG TABLET PO SCH (20:53)
[2022-04-09] MEDS: HEPARIN SOD (PORCINE) 5000UNITS/ML 1ML VIAL/SYRINGE SQ SCH (20:58)
[2022-04-09] MEDS ORDERED: ATORVASTATIN 20 MG TAB PO SCH (21:00)
[2022-04-09] MEDS ORDERED: DIVALPROEX 500MG *ER* TAB PO SCH (21:00)
[2022-04-09] MEDS ORDERED: INSULIN LISPRO (NovoLOG) PER UNIT SC SCH (21:00)
[2022-04-10 00:13] VITALS: BP 140/73
[2022-04-10 04:26] VITALS: BP 119/60
[2022-04-10 05:38] LABS: ALBUMIN 2.8 GM/DL (3.2-5.2); BILIRUBIN,TOTAL 0.2 MG/DL (0.2-1.0); CALCIUM LEVEL 9.7 MG/DL (8.5-10.1); CREATININE FOR GFR 1.69 MG/DL (0.55-1.30); GLOMERULAR FILTRATION RATE 34.4 (>58); MAGNESIUM LEVEL 1.9 MG/DL (1.8-2.4); PHOSPHORUS LEVEL 5.1 MG/DL (2.5-4.9); POTASSIUM SERUM 4.8 MEQ/L (3.5-5.1); TOTAL PROTEIN 6.1 GM/DL (6.4-8.2)
[2022-04-10] MEDS: HEPARIN SOD (PORCINE) 5000UNITS/ML 1ML VIAL/SYRINGE SQ SCH (06:04)
[2022-04-10 08:00] VITALS: BP 128/63
[2022-04-10] MEDS ORDERED: EZETIMIBE 10MG TABLET (ZETIA) PO SCH (09:00)
[2022-04-10] MEDS ORDERED: FOLIC ACID 1MG TAB PO SCH (09:00)
[2022-04-10] MEDS ORDERED: lisinopriL 5 MG TAB PO SCH (09:00)
[2022-04-10] MEDS ORDERED: ASPIRIN 325 MG TAB PO SCH (09:00)
[2022-04-10 09:20] VITALS: BP 128/63
[2022-04-10] MEDS: GABAPENTIN 400MG CAP PO SCH (09:20)
[2022-04-10] MEDS: MECLIZINE 25 MG TABLET PO SCH (09:20)
[2022-04-10] MEDS: INSULIN LISPRO (NovoLOG) PER UNIT SC SCH (09:21)
[2022-04-10] MEDS ORDERED: LABETALOL 200 MG TAB PO SCH (21:00)
[2022-04-10] MEDS ORDERED: FUROSEMIDE 20 MG TAB PO SCH (21:00)
== END 2022-04-10 10:30 | disposition home or self-care (01) | DRG 470 ==
LOC: M ED 12:47 → M ED INP 15:36 → ENRESERV 16:27 → M PCU 17:26
PROVIDERS: ADMIT Internal Medicine; ATTEND Internal Medicine
DX: I12.9 Hypertensive chronic kidney disease with stage 1 through stage 4 chronic kidney disease, or unspecified chronic kidney disease (principal); R56.9 Unspecified convulsions; E11.22 Type 2 diabetes mellitus with diabetic chronic kidney disease; E72.11 Homocystinuria; N18.30 Chronic kidney disease, stage 3 unspecified; I16.0 Hypertensive urgency; E78.5 Hyperlipidemia, unspecified; Z86.73 Personal history of transient ischemic attack (TIA), and cerebral infarction without residual deficits; G43.909 Migraine, unspecified, not intractable, without status migrainosus; J45.909 Unspecified asthma, uncomplicated; D72.829 Elevated white blood cell count, unspecified; D50.9 Iron deficiency anemia, unspecified; Z79.82 Long term (current) use of aspirin; Z79.84 Long term (current) use of oral hypoglycemic drugs; Z79.4 Long term (current) use of insulin; Z79.899 Other long term (current) drug therapy; Z88.8 Allergy status to other drugs, medicaments and biological substances; Z91.048 Other nonmedicinal substance allergy status; Z91.030 Bee allergy status; Z91.018 Allergy to other foods

== ENCOUNTER 2022-04-16 11:35 | Outpatient (CLI) | payer OTHER ==
[~2022-04-16] VITALS: Ht 154.9 cm; Wt 125.0 kg
[2022-04-16 11:35] VITALS: BP 174/84
[~2022-04-16 11:35] MED LIST changes: +ACET1TAB55 PO; +ALBUTEROL SULFATE 2.5 MG/0.5 ML INH NEB SOLN INH PRN; +CYCL5TAB PO; +DIPH25CA32 PO; +DIVA500T9 PO; +DULA3PEN SC; +EPINEPHrine INJ 1 MG/ML 1ML AMP IM PRN; +FURO20TA2 PO; +GABA-283 PO; +LISI5TAB11 PO; +REGL10TA6 PO; +UBRO50TA PO; +diphenhydrAMINE 50MG/ML VIAL (J1200) IV PRN; +methylPREDNISolone 125MG 2ML VIAL IV PRN
[2022-04-16] MEDS ORDERED: NS 1,000 ML IV SCH (12:00)
[2022-04-16] MEDS ORDERED: FERRIC CARBOXYMALTOSE INJ 750 MG in NS 250 ML (>50kg) IV ONE ×3 (12:00)
[2022-04-16 13:00] VITALS: BP 144/81
[2022-04-16 14:15] VITALS: BP 148/82
== END 2022-04-16 14:15 | disposition home or self-care (01) ==
LOC: M INFU 11:35
PROVIDERS: ATTEND Physician Assistant
DX: D50.9 Iron deficiency anemia, unspecified (principal); Z88.8 Allergy status to other drugs, medicaments and biological substances
CPT/HCPCS: 96365; 96366; J1439

== ENCOUNTER 2022-04-24 12:55 | Outpatient (CLI) | payer OTHER ==
[~2022-04-24] VITALS: Ht 154.9 cm; Wt 124.0 kg
[2022-04-24 12:55] VITALS: BP 188/90
[2022-04-24] MEDS ORDERED: FERRIC CARBOXYMALTOSE INJ 750 MG in NS 250 ML (>50kg) IV ONE ×3 (13:00)
[2022-04-24] MEDS ORDERED: NS 1,000 ML IV SCH (13:00)
[2022-04-24 14:09] VITALS: BP 144/86
== END 2022-04-24 14:15 | disposition home or self-care (01) ==
LOC: M INFU 12:55
PROVIDERS: ATTEND Physician Assistant
DX: D50.9 Iron deficiency anemia, unspecified (principal); Z88.8 Allergy status to other drugs, medicaments and biological substances
CPT/HCPCS: 96365; J1439

== ENCOUNTER → 2022-07-23 | Outpatient (REF) | payer OTHER ==
[~2022-07-23] MED LIST changes: +ALBU6.7H6 INH; -ALBUTEROL SULFATE 2.5 MG/0.5 ML INH NEB SOLN INH PRN; -EPINEPHrine INJ 1 MG/ML 1ML AMP IM PRN; -PROV108A INH; -diphenhydrAMINE 50MG/ML VIAL (J1200) IV PRN; -methylPREDNISolone 125MG 2ML VIAL IV PRN
[2022-07-23 18:32] LABS: PERCENT SATURATION 16.5 % (13.2-45.0)
== END ==
LOC: M LAB REF 16:50
PROVIDERS: ATTEND Nurse Practitioner Family
DX: D50.9 Iron deficiency anemia, unspecified (principal)

== ENCOUNTER → 2022-07-23 | Outpatient (REF) | payer OTHER ==
[2022-07-23 17:44] LABS: HEMATOCRIT 39.1 % (36.0-47.0); HEMOGLOBIN 12.5 g/dl (12.0-15.5); MEAN CORPUSCULAR VOLUME 93.8 fl (80.0-96.0); PLATELET COUNT, AUTOMATED 366 10^3/uL (150-450); RED BLOOD COUNT 4.17 10^6/uL (4.00-5.40); WHITE BLOOD COUNT 20.5 10^3/uL (4.0-10.0)
[2022-07-23 18:08] LABS: ALBUMIN 3.3 G/DL (3.2-5.2); BILIRUBIN,TOTAL 0.3 MG/DL (0.3-1.2); C REACTIVE PROTEIN QUANTITATIV 1.6 MG/DL (<1.0); CALCIUM LEVEL 9.4 MG/DL (8.5-10.1); CHOLESTEROL RISK RATIO 3.54 (<5); CREATININE FOR GFR 1.69 MG/DL (0.55-1.30); FERRITIN 526.4 NG/ML (7.3-270.7); FREE T4 1.07 NG/DL (0.89-1.76); GLOMERULAR FILTRATION RATE 34.4 (>58); HDL CHOLESTEROL 32.2 MG/DL (>40); LDL CHOLESTEROL 24.2 MG/DL (<100); POTASSIUM SERUM 4.6 MMOL/L (3.5-5.1); THYROID STIMULATING HORMONE 0.813 uIU/ML (0.55-4.78); TOTAL 25(OH) VITAMIN D 17.2 NG/ML (20.0-100.0); TOTAL PROTEIN 6.1 G/DL (5.7-8.2)
[2022-07-23 18:32] LABS: CREATININE, URINE 55.5 MG/DL; MAU/CREAT RATIO 100.9 MCG/MG (0.0-30.0)
[2022-07-23 19:08] LABS: HEMOGLOBIN A1c 12.3 % (4.0-6.0)
== END ==
LOC: M LAB REF 17:03
PROVIDERS: ATTEND Internal Medicine Hematology
DX: I10 Essential (primary) hypertension (principal)

== ENCOUNTER → 2022-09-18 | Outpatient (CLI) | payer OTHER ==
[~2022-09-18] MED LIST changes: +DIPH-435 PO; -DIPH25CA32 PO
[2022-09-18 11:53] LABS: CALCIUM LEVEL 10.2 MG/DL (8.5-10.1); GLOMERULAR FILTRATION RATE 28.2 (>58); POTASSIUM SERUM 4.9 MMOL/L (3.5-5.1)
== END ==
LOC: M PLALAB 08:09
PROVIDERS: ATTEND Internal Medicine Endocrinology, Diabetes & Metabolism
DX: E11.65 Type 2 diabetes mellitus with hyperglycemia (principal)

== ENCOUNTER → 2022-10-15 | Outpatient (CLI) | payer OTHER ==
[2022-10-15 13:35] LABS: HEMOGLOBIN 12.4 g/dl (12.0-15.5); MEAN CORPUSCULAR HEMOGLOBIN 29.7 pg (27.0-33.0); MEAN CORPUSCULAR HGB CONC 31.8 g/dl (32.0-36.5); MEAN CORPUSCULAR VOLUME 93.5 fl (80.0-96.0); PLATELET COUNT, AUTOMATED 386 10^3/uL (150-450); RED BLOOD COUNT 4.17 10^6/uL (4.00-5.40); WHITE BLOOD COUNT 17.1 10^3/uL (4.0-10.0)
[2022-10-15 14:01] LABS: CREATININE, URINE 43.2 MG/DL
[2022-10-15 14:02] LABS: MAU/CREAT RATIO 41.6 MCG/MG (0.0-30.0)
[2022-10-15 14:12] LABS: C REACTIVE PROTEIN QUANTITATIV 1.3 MG/DL (<1.0)
[2022-10-15 14:33] LABS: ALBUMIN 3.4 G/DL (3.2-5.2); BILIRUBIN,TOTAL 0.4 MG/DL (0.3-1.2); CALCIUM LEVEL 9.6 MG/DL (8.5-10.1); CHOLESTEROL RISK RATIO 3.3 (<5); CREATININE FOR GFR 2.06 MG/DL (0.55-1.30); FREE T4 1.12 NG/DL (0.89-1.76); GLOMERULAR FILTRATION RATE 27.2 (>58); HDL CHOLESTEROL 30.6 MG/DL (>40); POTASSIUM SERUM 4.8 MMOL/L (3.5-5.1); THYROID STIMULATING HORMONE 0.413 uIU/ML (0.55-4.78); TOTAL 25(OH) VITAMIN D 51.1 NG/ML (20.0-100.0)
[2022-10-15 16:19] LABS: HEMOGLOBIN A1c 8.8 % (4.0-6.0)
[2022-10-15 21:46] LABS: LDL CHOLESTEROL 25.8 MG/DL (<100)
== END ==
LOC: M PLALAB 09:39
PROVIDERS: ATTEND Internal Medicine Hematology
DX: E11.65 Type 2 diabetes mellitus with hyperglycemia (principal); N18.32 Chronic kidney disease, stage 3b

== ENCOUNTER → 2022-10-28 | Outpatient (CLI) | payer OTHER | LOC: M WHC 07:54 | PROVIDERS: ATTEND Nurse Practitioner Family | DX: N17.9 Acute kidney failure, unspecified (principal); I10 Essential (primary) hypertension ==

== ENCOUNTER → 2022-11-21 | Outpatient (CLI) | payer OTHER | LOC: M WUC 11:09 | PROVIDERS: ATTEND Nurse Practitioner Family | DX: M25.531 Pain in right wrist (principal) ==

== ENCOUNTER → 2022-12-22 | Outpatient (REF) | payer OTHER ==
[~2022-12-22] MED LIST changes: -KETO0.02 OP; +KETO5DRO33 OP
== END ==
LOC: M LAB REF 21:18
PROVIDERS: ATTEND Physician Assistant Medical
DX: B34.9 Viral infection, unspecified (principal)

== ENCOUNTER → 2022-12-23 | Outpatient (CLI) | payer OTHER | LOC: M WUC 08:25 | PROVIDERS: ATTEND Physician Assistant Medical | DX: R50.9 Fever, unspecified (principal); R05.9 Cough, unspecified ==

== ENCOUNTER → 2023-02-20 | Outpatient (REF) | payer OTHER ==
[2023-02-20 17:58] LABS: TOTAL PROTEIN,RANDOM URINE 6.6 MG/DL (0.0-14.0)
[2023-02-20 18:02] LABS: CREATININE,RANDOM URINE 47.9 MG/DL
== END ==
LOC: M LAB REF 17:01
PROVIDERS: ATTEND Nurse Practitioner Family
DX: R80.9 Proteinuria, unspecified (principal)

== ENCOUNTER → 2023-02-20 | Outpatient (REF) | payer OTHER ==
[2023-02-20 18:10] LABS: ALBUMIN 3.4 G/DL (3.2-5.2); ALKALINE PHOSPHATASE 98 U/L (46-116); ALT/SGPT 11 U/L (7.0-40); AST/SGOT < 8 U/L (<34); BILIRUBIN,TOTAL 0.4 MG/DL (0.3-1.2); BLOOD UREA NITROGEN 25 MG/DL (9-23); CALCIUM LEVEL 9.6 MG/DL (8.5-10.1); CARBON DIOXIDE LEVEL 22 MMOL/L (20-31); CHLORIDE LEVEL 97 MMOL/L (98-107); CREATININE FOR GFR 1.57 MG/DL (0.55-1.30); FREE T4 1.16 NG/DL (0.89-1.76); GLOMERULAR FILTRATION RATE 37.3 (>58); GLUCOSE, FASTING 77 MG/DL (60-100); IRON (FE) 52 UG/DL (50-170); PERCENT SATURATION 21.4 % (13.2-45.0); POTASSIUM SERUM 4.7 MMOL/L (3.5-5.1); SODIUM LEVEL 128 MMOL/L (136-145); THYROID STIMULATING HORMONE 0.615 uIU/ML (0.55-4.78); TOTAL IRON BINDING CAPACITY 243 UG/DL (250-425); TOTAL PROTEIN 6.4 G/DL (5.7-8.2)
[2023-02-20 18:11] LABS: FREE T3 2.5 PG/ML (2.3-4.2); VITAMIN B12 LEVEL 838 PG/ML (211-911)
== END ==
LOC: M LAB REF 17:02
PROVIDERS: ATTEND Internal Medicine Hematology
DX: E11.65 Type 2 diabetes mellitus with hyperglycemia (principal); D50.9 Iron deficiency anemia, unspecified; R79.89 Other specified abnormal findings of blood chemistry

== ENCOUNTER → 2023-03-05 | Outpatient (CLI) | payer OTHER ==
[2023-03-05 15:00] LABS: CALCIUM LEVEL 9.3 MG/DL (8.5-10.1); CREATININE FOR GFR 1.51 MG/DL (0.55-1.30); POTASSIUM SERUM 4.2 MMOL/L (3.5-5.1)
== END ==
LOC: M PLALAB 09:36
PROVIDERS: ATTEND Internal Medicine Hematology
DX: E87.1 Hypo-osmolality and hyponatremia (principal)

== ENCOUNTER → 2023-05-07 | Outpatient (CLI) | payer OTHER ==
[~2023-05-07] MED LIST changes: -GABA-283 PO; +GABA-284 PO
== END ==
LOC: M WUC 13:05
DX: M25.531 Pain in right wrist (principal); M25.541 Pain in joints of right hand

== ENCOUNTER → 2023-05-13 | Outpatient (CLI) | payer OTHER ==
[2023-05-13 16:10] LABS: BASO # 0.1 10^3/uL (0.0-0.2); BASO % 0.7 % (0.0-1.0); EOS # 0.4 10^3/uL (0.0-0.5); EOS % 2.2 % (0.0-3.0); HEMATOCRIT 34.1 % (36.0-47.0); HEMOGLOBIN 10.7 g/dl (12.0-15.5); LYMPH # 3.4 10^3/uL (1.5-5.0); LYMPH % 18.1 % (24.0-44.0); MEAN CORPUSCULAR HEMOGLOBIN 29.1 pg (27.0-33.0); MEAN CORPUSCULAR HGB CONC 31.4 g/dl (32.0-36.5); MEAN CORPUSCULAR VOLUME 92.7 fl (80.0-96.0); MONO # 1.3 10^3/uL (0.0-0.8); MONO % 7.1 % (2.0-8.0); NEUTROPHILS # 13.5 10^3/uL (1.5-8.5); NEUTROPHILS % 71.3 % (36.0-66.0); PLATELET COUNT, AUTOMATED 511 10^3/uL (150-450); RED BLOOD COUNT 3.68 10^6/uL (4.00-5.40)
[2023-05-13 16:39] LABS: ALBUMIN 2.5 G/DL (3.2-5.2); BILIRUBIN,TOTAL 0.2 MG/DL (0.3-1.2); CALCIUM LEVEL 8.3 MG/DL (8.5-10.1); CREATININE FOR GFR 1.52 MG/DL (0.55-1.30); GLOMERULAR FILTRATION RATE 38.7 (>58); POTASSIUM SERUM 4.2 MMOL/L (3.5-5.1); TOTAL PROTEIN 5.4 G/DL (5.7-8.2)
== END ==
LOC: M PLALAB 12:17
PROVIDERS: ATTEND Internal Medicine Hematology
DX: R10.13 Epigastric pain (principal)

== ENCOUNTER → 2023-05-19 | Outpatient (CLI) | payer OTHER ==
[2023-05-19 11:08] LABS: HEMATOCRIT 34.9 % (36.0-47.0); HEMOGLOBIN 11.1 g/dl (12.0-15.5); MEAN CORPUSCULAR HEMOGLOBIN 29.3 pg (27.0-33.0); MEAN CORPUSCULAR HGB CONC 31.8 g/dl (32.0-36.5); MEAN CORPUSCULAR VOLUME 92.1 fl (80.0-96.0); PLATELET COUNT, AUTOMATED 531 10^3/uL (150-450); RED BLOOD COUNT 3.79 10^6/uL (4.00-5.40); WHITE BLOOD COUNT 19.6 10^3/uL (4.0-10.0)
[2023-05-19 11:39] LABS: PERCENT SATURATION 15.4 % (13.2-45.0)
[2023-05-19 11:42] LABS: FERRITIN 355.9 NG/ML (7.3-270.7)
== END ==
LOC: M PLALAB 07:45
PROVIDERS: ATTEND Internal Medicine Hematology
DX: D50.8 Other iron deficiency anemias (principal)

== ENCOUNTER → 2023-05-22 | Outpatient (CLI) | payer OTHER | LOC: M RAD 10:04 | PROVIDERS: ATTEND Internal Medicine Hematology | DX: R10.13 Epigastric pain (principal); Z90.49 Acquired absence of other specified parts of digestive tract ==

== ENCOUNTER 2023-06-02 12:35 | Outpatient (CLI) | payer OTHER ==
[~2023-06-02] VITALS: Ht 154.9 cm; Wt 101.8 kg
[~2023-06-02 12:35] MED LIST changes: +ALBUTEROL SULFATE 2.5MG/0.5ML INH NEB SOLN INH PRN; +EPINEPHrine INJ 1 MG/ML 1ML AMP IM PRN; +IRON SUCROSE 200 MG in NS 100 ML IV ONE; +NS 1,000 ML IV SCH; +diphenhydrAMINE 50MG/ML VIAL IV PRN; +methylPREDNISolone 125MG 2ML VIAL IV PRN
[2023-06-02 12:41] VITALS: BP 146/75; O2SAT 98
[2023-06-02 14:45] VITALS: BP 153/82; O2SAT 97
== END 2023-06-02 14:45 | disposition home or self-care (01) ==
LOC: M INFU 12:35
PROVIDERS: ATTEND Internal Medicine Hematology
DX: D50.9 Iron deficiency anemia, unspecified (principal); Z88.8 Allergy status to other drugs, medicaments and biological substances
CPT/HCPCS: 96365; J1756

== ENCOUNTER 2023-06-09 12:00 | Outpatient (CLI) | payer OTHER ==
[~2023-06-09] VITALS: Ht 154.9 cm; Wt 103.3 kg
[~2023-06-09 12:00] MED LIST changes: +GLIP5TAB17 PO; -GLIP5TAB8 PO; -IRON SUCROSE 200 MG in NS 100 ML IV ONE; +IRON SUCROSE 200 MG in NS 100 ML OVER 1 HR IV ONE
[2023-06-09 12:08] VITALS: BP 143/76; O2SAT 96
[2023-06-09 13:25] VITALS: BP 156/82; O2SAT 96
== END 2023-06-09 13:30 ==
LOC: M INFU 12:00
PROVIDERS: ATTEND Internal Medicine Hematology
DX: D50.9 Iron deficiency anemia, unspecified (principal); Z88.8 Allergy status to other drugs, medicaments and biological substances
CPT/HCPCS: 96365; J1756

== ENCOUNTER → 2023-06-16 | Outpatient (CLI) | payer OTHER ==
[~2023-06-16] VITALS: Ht 154.9 cm; Wt 103.3 kg
[~2023-06-16] MED LIST changes: +IRON SUCROSE 200 MG in NS 100 ML IV ONE; -IRON SUCROSE 200 MG in NS 100 ML OVER 1 HR IV ONE
[2023-06-16 12:21] VITALS: BP 144/75; O2SAT 96
[2023-06-16 13:15] VITALS: BP 130/73; O2SAT 97
== END ==
LOC: M INFU 11:33
PROVIDERS: ATTEND Internal Medicine Hematology
DX: D50.9 Iron deficiency anemia, unspecified (principal); Z88.8 Allergy status to other drugs, medicaments and biological substances
CPT/HCPCS: 96365; J1756

== ENCOUNTER → 2023-06-25 | Outpatient (CLI) | payer OTHER ==
[~2023-06-25] MED LIST changes: -ALBUTEROL SULFATE 2.5MG/0.5ML INH NEB SOLN INH PRN; -EPINEPHrine INJ 1 MG/ML 1ML AMP IM PRN; -IRON SUCROSE 200 MG in NS 100 ML IV ONE; -NS 1,000 ML IV SCH; -diphenhydrAMINE 50MG/ML VIAL IV PRN; -methylPREDNISolone 125MG 2ML VIAL IV PRN
[2023-06-25 09:34] LABS: BASO # 0.1 10^3/uL (0.0-0.2); BASO % 0.8 % (0.0-1.0); EOS # 0.6 10^3/uL (0.0-0.5); EOS % 3.7 % (0.0-3.0); HEMATOCRIT 37.2 % (36.0-47.0); HEMOGLOBIN 12.3 g/dl (12.0-15.5); LYMPH # 4.3 10^3/uL (1.5-5.0); LYMPH % 25.7 % (24.0-44.0); MEAN CORPUSCULAR HEMOGLOBIN 29.5 pg (27.0-33.0); MEAN CORPUSCULAR HGB CONC 33.1 g/dl (32.0-36.5); MEAN CORPUSCULAR VOLUME 89.2 fl (80.0-96.0); MONO # 1.2 10^3/uL (0.0-0.8); MONO % 7.4 % (2.0-8.0); NEUTROPHILS # 10.3 10^3/uL (1.5-8.5); NEUTROPHILS % 61.9 % (36.0-66.0); PLATELET COUNT, AUTOMATED 629 10^3/uL (150-450); RED BLOOD COUNT 4.17 10^6/uL (4.00-5.40); WHITE BLOOD COUNT 16.7 10^3/uL (4.0-10.0)
[2023-06-25 10:01] LABS: CORTISOL AM 7.9 UG/DL (4.3-22.4)
== END ==
LOC: M LAB 07:50
PROVIDERS: ATTEND Internal Medicine Hematology
DX: D72.829 Elevated white blood cell count, unspecified (principal); E11.65 Type 2 diabetes mellitus with hyperglycemia

== ENCOUNTER 2023-07-13 08:20 | Outpatient (CLI) | payer OTHER ==
[~2023-07-13] VITALS: Ht 154.9 cm; Wt 103.2 kg
[~2023-07-13 08:20] MED LIST changes: +ALBUTEROL SULFATE 2.5MG/0.5ML INH NEB SOLN INH PRN; +EPINEPHrine INJ 1 MG/ML 1ML AMP IM PRN; +IRON SUCROSE 200 MG in NS 100 ML IV ONE; +NS 1,000 ML IV SCH; +diphenhydrAMINE 50MG/ML VIAL IV PRN; +methylPREDNISolone 125MG 2ML VIAL IV PRN
[2023-07-13 09:00] VITALS: BP 172/82; O2SAT 97
[2023-07-13 09:40] VITALS: BP 152/80; O2SAT 96
== END 2023-07-13 09:45 ==
LOC: M INFU 08:20
PROVIDERS: ATTEND Internal Medicine Hematology
DX: D50.9 Iron deficiency anemia, unspecified (principal); Z88.8 Allergy status to other drugs, medicaments and biological substances
CPT/HCPCS: 96365; J1756

== ENCOUNTER → 2023-07-14 | Outpatient (CLI) | payer OTHER ==
[~2023-07-14] MED LIST changes: -ALBUTEROL SULFATE 2.5MG/0.5ML INH NEB SOLN INH PRN; -EPINEPHrine INJ 1 MG/ML 1ML AMP IM PRN; -IRON SUCROSE 200 MG in NS 100 ML IV ONE; -NS 1,000 ML IV SCH; -diphenhydrAMINE 50MG/ML VIAL IV PRN; -methylPREDNISolone 125MG 2ML VIAL IV PRN
[2023-07-14 07:53] LABS: BASO # 0.2 10^3/uL (0.0-0.2); EOS # 0.4 10^3/uL (0.0-0.5); EOS % 2.5 % (0.0-3.0); HEMATOCRIT 35.5 % (36.0-47.0); HEMOGLOBIN 11.6 g/dl (12.0-15.5); LYMPH # 2.6 10^3/uL (1.5-5.0); LYMPH % 15.3 % (24.0-44.0); MEAN CORPUSCULAR HEMOGLOBIN 29.4 pg (27.0-33.0); MEAN CORPUSCULAR HGB CONC 32.7 g/dl (32.0-36.5); MEAN CORPUSCULAR VOLUME 89.9 fl (80.0-96.0); MONO # 1.3 10^3/uL (0.0-0.8); MONO % 7.8 % (2.0-8.0); NEUTROPHILS # 12.5 10^3/uL (1.5-8.5); PLATELET COUNT, AUTOMATED 450 10^3/uL (150-450); RED BLOOD COUNT 3.95 10^6/uL (4.00-5.40); WHITE BLOOD COUNT 17.1 10^3/uL (4.0-10.0)
== END ==
LOC: M LAB 07:32
PROVIDERS: ATTEND Internal Medicine Hematology
DX: D75.839 Thrombocytosis, unspecified (principal)

== ENCOUNTER 2023-07-20 08:54 | Outpatient (CLI) | payer OTHER ==
[~2023-07-20] VITALS: Ht 154.9 cm; Wt 105.0 kg
[~2023-07-20 08:54] MED LIST changes: +ALBUTEROL SULFATE 2.5MG/0.5ML INH NEB SOLN INH PRN; +EPINEPHrine INJ 1 MG/ML 1ML AMP IM PRN; +NS 1,000 ML IV SCH; +diphenhydrAMINE 50MG/ML VIAL IV PRN; +methylPREDNISolone 125MG 2ML VIAL IV PRN
[2023-07-20 08:55] VITALS: BP 182/88; O2SAT 95
[2023-07-20] MEDS ORDERED: IRON SUCROSE 200 MG in NS 100 ML IV ONE (09:10)
[2023-07-20 11:00] VITALS: BP 131/63; O2SAT 96
== END 2023-07-20 11:07 ==
LOC: M INFU 08:54
PROVIDERS: ATTEND Internal Medicine Hematology
DX: D50.9 Iron deficiency anemia, unspecified (principal); Z88.8 Allergy status to other drugs, medicaments and biological substances
CPT/HCPCS: 96365; J1756

== ENCOUNTER → 2023-07-31 | Outpatient (CLI) | payer OTHER ==
[~2023-07-31] MED LIST changes: -ALBUTEROL SULFATE 2.5MG/0.5ML INH NEB SOLN INH PRN; -EPINEPHrine INJ 1 MG/ML 1ML AMP IM PRN; -NS 1,000 ML IV SCH; -diphenhydrAMINE 50MG/ML VIAL IV PRN; -methylPREDNISolone 125MG 2ML VIAL IV PRN
[2023-07-31 15:56] LABS: BASO # 0.1 10^3/uL (0.0-0.2); BASO % 0.8 % (0.0-1.0); EOS # 0.3 10^3/uL (0.0-0.5); EOS % 2.5 % (0.0-3.0); HEMATOCRIT 37.6 % (36.0-47.0); HEMOGLOBIN 12.3 g/dl (12.0-15.5); LYMPH # 1.9 10^3/uL (1.5-5.0); LYMPH % 15.6 % (24.0-44.0); MEAN CORPUSCULAR HEMOGLOBIN 29.3 pg (27.0-33.0); MEAN CORPUSCULAR HGB CONC 32.7 g/dl (32.0-36.5); MEAN CORPUSCULAR VOLUME 89.5 fl (80.0-96.0); MONO # 1.2 10^3/uL (0.0-0.8); MONO % 9.6 % (2.0-8.0); NEUTROPHILS # 8.8 10^3/uL (1.5-8.5); NEUTROPHILS % 71.2 % (36.0-66.0); PLATELET COUNT, AUTOMATED 509 10^3/uL (150-450); WHITE BLOOD COUNT 12.3 10^3/uL (4.0-10.0)
== END ==
LOC: M RAD 14:51
PROVIDERS: ATTEND Family Medicine
DX: J22 Unspecified acute lower respiratory infection (principal); R05.9 Cough, unspecified; J45.20 Mild intermittent asthma, uncomplicated

== ENCOUNTER → 2023-07-31 | Outpatient (REF) | payer OTHER | LOC: M SFHCPLAZ 13:55 | PROVIDERS: ATTEND Family Medicine | DX: J22 Unspecified acute lower respiratory infection (principal) ==

== ENCOUNTER → 2023-08-19 | Outpatient (REF) | payer OTHER ==
[2023-08-19 18:21] LABS: CREATININE,RANDOM URINE 73.9 MG/DL
[2023-08-19 18:26] LABS: TOTAL PROTEIN,RANDOM URINE 639.9 MG/DL (0.0-14.0)
== END ==
LOC: M LAB REF 17:19
PROVIDERS: ATTEND Nurse Practitioner Family
DX: N39.0 Urinary tract infection, site not specified (principal); R80.9 Proteinuria, unspecified

== ENCOUNTER → 2023-10-01 | Outpatient (CLI) | payer OTHER ==
[~2023-10-01] MED LIST changes: +AMLO1TAB24 PO; +ERGO500029 PO; +INSU100I24 SQ; +INSU100I48 SQ; +KETO0.5S4 OP; +LOSA25TA13 PO; +RIME75TA PO
[2023-10-01 15:00] LABS: HEMATOCRIT 38.7 % (36.0-47.0); HEMOGLOBIN 12.9 g/dl (12.0-15.5); MEAN CORPUSCULAR HEMOGLOBIN 30.2 pg (27.0-33.0); MEAN CORPUSCULAR HGB CONC 33.3 g/dl (32.0-36.5); MEAN CORPUSCULAR VOLUME 90.6 fl (80.0-96.0); PLATELET COUNT, AUTOMATED 468 10^3/uL (150-450); RED BLOOD COUNT 4.27 10^6/uL (4.00-5.40); WHITE BLOOD COUNT 16.2 10^3/uL (4.0-10.0)
[2023-10-01 15:05] LABS: C REACTIVE PROTEIN QUANTITATIV < 0.40 MG/DL (<1.0)
[2023-10-01 15:07] LABS: ALBUMIN 2.8 G/DL (3.2-5.2); ALKALINE PHOSPHATASE 94 U/L (46-116); ALT/SGPT 14 U/L (7.0-40); AST/SGOT 12 U/L (<34); BILIRUBIN,TOTAL 0.3 MG/DL (0.3-1.2); BLOOD UREA NITROGEN 35 MG/DL (9-23); CALCIUM LEVEL 9.8 MG/DL (8.5-10.1); CARBON DIOXIDE LEVEL 26 MMOL/L (20-31); CHLORIDE LEVEL 105 MMOL/L (98-107); CHOLESTEROL LEVEL 138 MG/DL (<200); CHOLESTEROL RISK RATIO 3.52 (<5); GLOMERULAR FILTRATION RATE 18.3 (>51); GLUCOSE, FASTING 155 MG/DL (60-100); HDL CHOLESTEROL 39.1 MG/DL (>40); IRON (FE) 48 UG/DL (50-170); LDL CHOLESTEROL 48.3 MG/DL (<100); NON-HDL-C 98.9 MG/DL; POTASSIUM SERUM 4.2 MMOL/L (3.5-5.1); SODIUM LEVEL 139 MMOL/L (136-145); TOTAL PROTEIN 6.2 G/DL (5.7-8.2); TRIGLYCERIDES LEVEL 253 MG/DL (<150)
[2023-10-01 15:09] LABS: TOTAL 25(OH) VITAMIN D 49.8 NG/ML (20.0-100.0); VITAMIN B12 LEVEL 606 PG/ML (211-911)
[2023-10-01 15:24] LABS: CREATININE, URINE 118.5 MG/DL
[2023-10-01 15:35] LABS: MALB URINE SIEMENS > 3800.0 MG/L; MAU/CREAT RATIO 3206.7 MCG/MG (0.0-30.0)
== END ==
LOC: M PLALAB 09:42
PROVIDERS: ATTEND Internal Medicine Hematology
DX: E11.65 Type 2 diabetes mellitus with hyperglycemia (principal); D50.0 Iron deficiency anemia secondary to blood loss (chronic)

== ENCOUNTER → 2023-10-15 | Outpatient (CLI) | payer OTHER ==
[~2023-10-15] VITALS: Ht 154.9 cm; Wt 102.4 kg
[~2023-10-15] MED LIST changes: +ALBUTEROL SULFATE 2.5MG/0.5ML INH NEB SOLN INH PRN; +EPINEPHrine INJ 1 MG/ML 1ML AMP IM PRN; +diphenhydrAMINE 50MG/ML VIAL IV PRN; +methylPREDNISolone 125MG 2ML VIAL IV PRN
[2023-10-15 15:55] VITALS: BP 161/74; O2SAT 98
[2023-10-15] MEDS: IRON SUCROSE 200 MG in NS 100 ML IV ONE (16:15)
[2023-10-15] MEDS: NS 1,000 ML IV SCH (16:15)
[2023-10-15 17:30] VITALS: BP 164/78; O2SAT 97
== END ==
LOC: M INFU 15:42
PROVIDERS: ATTEND Internal Medicine Hematology
DX: D50.0 Iron deficiency anemia secondary to blood loss (chronic) (principal); Z88.8 Allergy status to other drugs, medicaments and biological substances
CPT/HCPCS: 96365; J1756

== ENCOUNTER 2023-10-22 15:25 | Outpatient (CLI) | payer OTHER ==
[2023-10-22] MEDS: NS 1,000 ML IV SCH (07:01)
[2023-10-22 15:36] VITALS: BP 166/75; O2SAT 96
[2023-10-22] MEDS: IRON SUCROSE 200 MG in NS 100 ML IV ONE (15:39)
== END 2023-10-22 16:40 ==
LOC: M INFU 15:25
PROVIDERS: ATTEND Internal Medicine Hematology
DX: D50.0 Iron deficiency anemia secondary to blood loss (chronic) (principal); Z88.8 Allergy status to other drugs, medicaments and biological substances
CPT/HCPCS: 96365; J1756

== ENCOUNTER 2023-10-29 15:55 | Outpatient (CLI) | payer OTHER ==
[~2023-10-29] VITALS: Ht 154.9 cm; Wt 102.4 kg
[2023-10-29] MEDS: NS 1,000 ML IV SCH (16:00)
[2023-10-29] MEDS: IRON SUCROSE 200 MG in NS 100 ML OVER 1 HR IV ONE (16:21)
[2023-10-29 17:16] VITALS: BP 145/71; O2SAT 97
== END 2023-10-29 17:15 ==
LOC: M INFU 15:55
PROVIDERS: ATTEND Internal Medicine Hematology
DX: D50.0 Iron deficiency anemia secondary to blood loss (chronic) (principal); Z88.8 Allergy status to other drugs, medicaments and biological substances

== ENCOUNTER → 2023-11-18 | Outpatient (REF) | payer OTHER ==
[~2023-11-18] MED LIST changes: -ALBUTEROL SULFATE 2.5MG/0.5ML INH NEB SOLN INH PRN; -EPINEPHrine INJ 1 MG/ML 1ML AMP IM PRN; -diphenhydrAMINE 50MG/ML VIAL IV PRN; -methylPREDNISolone 125MG 2ML VIAL IV PRN
[2023-11-18 18:30] LABS: PERCENT SATURATION 25.7 % (13.2-45.0)
[2023-11-18 18:37] LABS: FERRITIN 740.6 NG/ML (7.3-270.7)
== END ==
LOC: M LAB REF 17:25
PROVIDERS: ATTEND Nurse Practitioner Family
DX: D50.9 Iron deficiency anemia, unspecified (principal)

== ENCOUNTER → 2023-12-22 | Outpatient (REF) | payer OTHER ==
[2023-12-22 18:27] LABS: AMORPHOUS SEDIMENT SMALL (NEGATIVE); APPEARANCE, URINE CLEAR (CLEAR); BACTERIA, URINE AUTO 1+ (NEGATIVE); BILIRUBIN, URINE AUTO NEGATIVE (NEGATIVE); BLOOD, URINE BLOOD 1+ (NEGATIVE); COLOR, URINE STRAW (YELLOW); GLUCOSE, URINE (UA) AUTO NEGATIVE (NEGATIVE); KETONE, URINE AUTO NEGATIVE (NEGATIVE); LEUKOCYTE ESTERASE, URINE AUTO NEGATIVE (NEGATIVE); NITRITE, URINE AUTO NEGATIVE (NEGATIVE); PROTEIN, URINE AUTO 3+ mg/dL (NEGATIVE); RBC, URINE AUTO 9 /HPF (0-3); SQUAMOUS EPITHELIAL CELL UR AU 2 /HPF (0-6); UROBILINOGEN, URINE AUTO 0.2 mg/dL (0.0-2.0); WBC, URINE AUTO 1 /HPF (0-3)
[2023-12-22 19:13] LABS: CREATININE,RANDOM URINE 46.7 MG/DL; TOTAL PROTEIN,RANDOM URINE 358.1 MG/DL (0.0-14.0)
== END ==
LOC: M LAB REF 17:23
PROVIDERS: ATTEND Nurse Practitioner Family
DX: R31.29 Other microscopic hematuria (principal); N18.4 Chronic kidney disease, stage 4 (severe); R80.9 Proteinuria, unspecified

== ENCOUNTER → 2023-12-22 | Outpatient (REF) | payer OTHER | LOC: M LAB REF 17:24 | PROVIDERS: ATTEND Internal Medicine Hematology | DX: D50.9 Iron deficiency anemia, unspecified (principal) ==

== ENCOUNTER → 2023-12-28 | Outpatient (CLI) | payer OTHER ==
[2023-12-28 11:06] LABS: BASO # 0.2 10^3/uL (0.0-0.2); BASO % 1.2 % (0.0-1.0); EOS # 0.5 10^3/uL (0.0-0.5); EOS % 3.5 % (0.0-3.0); HEMATOCRIT 34.4 % (36.0-47.0); HEMOGLOBIN 11.4 g/dl (12.0-15.5); LYMPH # 2.8 10^3/uL (1.5-5.0); LYMPH % 21.1 % (24.0-44.0); MEAN CORPUSCULAR HEMOGLOBIN 31.8 pg (27.0-33.0); MEAN CORPUSCULAR HGB CONC 33.1 g/dl (32.0-36.5); MEAN CORPUSCULAR VOLUME 95.8 fl (80.0-96.0); MONO # 1.2 10^3/uL (0.0-0.8); MONO % 8.6 % (2.0-8.0); NEUTROPHILS # 8.7 10^3/uL (1.5-8.5); NEUTROPHILS % 65.2 % (36.0-66.0); PLATELET COUNT, AUTOMATED 421 10^3/uL (150-450); RED BLOOD COUNT 3.59 10^6/uL (4.00-5.40); WHITE BLOOD COUNT 13.4 10^3/uL (4.0-10.0)
== END ==
LOC: M PLALAB 07:30
PROVIDERS: ATTEND Internal Medicine Hematology
DX: D50.9 Iron deficiency anemia, unspecified (principal)

== ENCOUNTER → 2024-02-01 | Outpatient (CLI) | payer OTHER ==
[~2024-02-01] MED LIST changes: +ONDA-282 PO; -ONDA4TAB6 PO
== END ==
LOC: M PLALAB 07:43
PROVIDERS: ATTEND Internal Medicine Hematology
DX: E61.1 Iron deficiency (principal)

== ENCOUNTER → 2024-02-05 | Outpatient (CLI) | payer OTHER | LOC: M RAD 11:59 | PROVIDERS: ATTEND Surgery | DX: N18.32 Chronic kidney disease, stage 3b (principal) ==

== ENCOUNTER → 2024-02-29 | Outpatient (CLI) | payer OTHER ==
[2024-02-29 12:56] LABS: INR 0.98; PARTIAL THROMBOPLASTIN TIME 30.7 SECONDS (24.8-34.2); PROTHROMBIN TIME 12.7 SECONDS (12.5-14.5)
== END ==
LOC: M PLALAB 11:15
PROVIDERS: ATTEND Internal Medicine Hematology
DX: Z01.818 Encounter for other preprocedural examination (principal)

== ENCOUNTER → 2024-03-28 | Outpatient (REF) | payer OTHER ==
[2024-03-28 11:05] LABS: APPEARANCE, URINE CLEAR (CLEAR); BACTERIA, URINE AUTO 1+ (NEGATIVE); BILIRUBIN, URINE AUTO NEGATIVE (NEGATIVE); BLOOD, URINE BLOOD 1+ (NEGATIVE); COLOR, URINE STRAW (YELLOW); GLUCOSE, URINE (UA) AUTO NEGATIVE (NEGATIVE); KETONE, URINE AUTO NEGATIVE (NEGATIVE); LEUKOCYTE ESTERASE, URINE AUTO NEGATIVE (NEGATIVE); NITRITE, URINE AUTO NEGATIVE (NEGATIVE); PROTEIN, URINE AUTO 3+ mg/dL (NEGATIVE); RBC, URINE AUTO 2 /HPF (0-3); SPECIFIC GRAVITY URINE AUTO 1.004 (1.002-1.035); SQUAMOUS EPITHELIAL CELL UR AU 1 /HPF (0-6); UROBILINOGEN, URINE AUTO 0.2 mg/dL (0.0-2.0); WBC, URINE AUTO 1 /HPF (0-3)
== END ==
LOC: M SMT 10:25
PROVIDERS: ATTEND Urology
DX: R31.29 Other microscopic hematuria (principal)

== ENCOUNTER → 2024-04-08 | Outpatient (CLI) | payer OTHER ==
[2024-04-08 13:26] LABS: BASO # 0.2 10^3/uL (0.0-0.2); EOS # 0.8 10^3/uL (0.0-0.5); EOS % 5.3 % (0.0-3.0); HEMATOCRIT 28.3 % (36.0-47.0); HEMOGLOBIN 9.2 g/dl (12.0-15.5); LYMPH # 3.2 10^3/uL (1.5-5.0); MEAN CORPUSCULAR HEMOGLOBIN 31.6 pg (27.0-33.0); MEAN CORPUSCULAR HGB CONC 32.5 g/dl (32.0-36.5); MEAN CORPUSCULAR VOLUME 97.3 fl (80.0-96.0); MONO # 1.4 10^3/uL (0.0-0.8); MONO % 8.9 % (2.0-8.0); NEUTROPHILS # 10.2 10^3/uL (1.5-8.5); NEUTROPHILS % 64.4 % (36.0-66.0); PLATELET COUNT, AUTOMATED 390 10^3/uL (150-450); RED BLOOD COUNT 2.91 10^6/uL (4.00-5.40); WHITE BLOOD COUNT 15.9 10^3/uL (4.0-10.0)
[2024-04-08 13:52] LABS: C REACTIVE PROTEIN QUANTITATIV < 0.40 MG/DL (<1.0)
[2024-04-08 13:54] LABS: ALBUMIN 2.9 G/DL (3.2-5.2); ALKALINE PHOSPHATASE 76 U/L (46-116); ALT/SGPT 16 U/L (7.0-40); AST/SGOT 14 U/L (<34); BILIRUBIN,TOTAL 0.3 MG/DL (0.3-1.2); BLOOD UREA NITROGEN 37 MG/DL (9-23); CALCIUM LEVEL 9.6 MG/DL (8.5-10.1); CARBON DIOXIDE LEVEL 24 MMOL/L (20-31); CHLORIDE LEVEL 106 MMOL/L (98-107); CHOLESTEROL LEVEL 108 MG/DL (<200); CHOLESTEROL RISK RATIO 2.94 (<5); CREATININE FOR GFR 3.24 MG/DL (0.55-1.30); GLOMERULAR FILTRATION RATE 16.1 (>51); GLUCOSE, FASTING 99 MG/DL (60-100); HDL CHOLESTEROL 36.7 MG/DL (>40); LDL CHOLESTEROL 35.5 MG/DL (<100); NON-HDL-C 71.3 MG/DL; POTASSIUM SERUM 4.5 MMOL/L (3.5-5.1); SODIUM LEVEL 138 MMOL/L (136-145); TOTAL 25(OH) VITAMIN D 65.6 NG/ML (20.0-100.0); TOTAL PROTEIN 5.5 G/DL (5.7-8.2); TRIGLYCERIDES LEVEL 179 MG/DL (<150)
[2024-04-08 13:55] LABS: VITAMIN B12 LEVEL 955 PG/ML (211-911)
== END ==
LOC: M PLALAB 08:30
PROVIDERS: ATTEND Internal Medicine Hematology
DX: E11.65 Type 2 diabetes mellitus with hyperglycemia (principal)

== ENCOUNTER → 2024-04-10 | Outpatient (REF) | payer OTHER ==
[2024-04-10 14:37] LABS: CREATININE, URINE 37.4 MG/DL
[2024-04-10 14:50] LABS: MAU/CREAT RATIO 2478.6 MCG/MG (0.0-30.0)
== END ==
LOC: M LAB REF 13:27
PROVIDERS: ATTEND Internal Medicine Hematology
DX: E11.65 Type 2 diabetes mellitus with hyperglycemia (principal)

== ENCOUNTER → 2024-04-12 | Outpatient (CLI) | payer OTHER ==
[2024-04-12 13:54] LABS: BASO # 0.2 10^3/uL (0.0-0.2); BASO % 0.9 % (0.0-1.0); EOS # 0.6 10^3/uL (0.0-0.5); EOS % 3.7 % (0.0-3.0); HEMATOCRIT 29.4 % (36.0-47.0); HEMOGLOBIN 9.6 g/dl (12.0-15.5); LYMPH # 2.4 10^3/uL (1.5-5.0); LYMPH % 14.6 % (24.0-44.0); MEAN CORPUSCULAR HEMOGLOBIN 32.3 pg (27.0-33.0); MEAN CORPUSCULAR HGB CONC 32.7 g/dl (32.0-36.5); MONO # 1.5 10^3/uL (0.0-0.8); MONO % 9.4 % (2.0-8.0); NEUTROPHILS # 11.7 10^3/uL (1.5-8.5); NEUTROPHILS % 71.1 % (36.0-66.0); PLATELET COUNT, AUTOMATED 406 10^3/uL (150-450); RED BLOOD COUNT 2.97 10^6/uL (4.00-5.40); WHITE BLOOD COUNT 16.4 10^3/uL (4.0-10.0)
[2024-04-12 14:27] LABS: PERCENT SATURATION 18.9 % (13.2-45.0)
[2024-04-12 14:29] LABS: THYROID STIMULATING HORMONE 2.597 uIU/ML (0.55-4.78)
== END ==
LOC: M PLALAB 09:50
PROVIDERS: ATTEND Internal Medicine Hematology
DX: E61.1 Iron deficiency (principal)

== ENCOUNTER → 2024-04-12 | Outpatient (CLI) | payer OTHER | LOC: M RAD 13:38 | PROVIDERS: ATTEND Nurse Practitioner Family | DX: R06.01 Orthopnea (principal); I50.22 Chronic systolic (congestive) heart failure; J90 Pleural effusion, not elsewhere classified ==

== ENCOUNTER → 2024-04-14 | Outpatient (REF) | payer OTHER | LOC: M LAB REF 16:59 | PROVIDERS: ATTEND Nurse Practitioner Family | DX: I50.9 Heart failure, unspecified (principal) ==

== ENCOUNTER → 2024-04-25 | Outpatient (CLI) | payer OTHER | LOC: M RAD 08:07 | PROVIDERS: ATTEND Nurse Practitioner Family | DX: R06.01 Orthopnea (principal) ==

== ENCOUNTER → 2024-04-26 | Outpatient (CLI) | payer OTHER | LOC: M PLAIMG 08:23 | PROVIDERS: ATTEND Nurse Practitioner Family | DX: I50.9 Heart failure, unspecified (principal) ==

== ENCOUNTER 2024-04-28 11:31 | Outpatient (CLI) | payer OTHER ==
[~2024-04-28] VITALS: Ht 154.9 cm; Wt 102.3 kg
[~2024-04-28 11:31] MED LIST changes: +ALBUTEROL SULFATE 2.5MG/0.5ML INH NEB SOLN INH PRN; +EPINEPHrine INJ 1 MG/ML 1ML AMP IM PRN; +diphenhydrAMINE 50MG/ML VIAL IV PRN; +methylPREDNISolone 125MG 2ML VIAL IV PRN
[2024-04-28 12:00] VITALS: BP 120/61; O2SAT 96
[2024-04-28] MEDS ORDERED: NS 1,000 ML IV SCH (12:00)
[2024-04-28] MEDS: IRON SUCROSE 300 MG in NS 250 ML OVER 90 MIN. IV ONE (12:18)
[2024-04-28 13:55] VITALS: BP 129/71; O2SAT 97
== END 2024-04-28 13:05 ==
LOC: M INFU 11:31
PROVIDERS: ATTEND Internal Medicine Hematology
DX: D50.9 Iron deficiency anemia, unspecified (principal); Z88.8 Allergy status to other drugs, medicaments and biological substances
CPT/HCPCS: 96365; 96366; J1756

== ENCOUNTER → 2024-05-10 | Outpatient (CLI) | payer OTHER ==
[~2024-05-10] MED LIST changes: -ALBUTEROL SULFATE 2.5MG/0.5ML INH NEB SOLN INH PRN; -EPINEPHrine INJ 1 MG/ML 1ML AMP IM PRN; -diphenhydrAMINE 50MG/ML VIAL IV PRN; -methylPREDNISolone 125MG 2ML VIAL IV PRN
== END ==
LOC: M RAD 16:16
PROVIDERS: ATTEND Nurse Practitioner Family
DX: R06.00 Dyspnea, unspecified (principal)

== ENCOUNTER 2024-05-12 12:11 | Outpatient (CLI) | payer OTHER ==
[~2024-05-12 12:11] MED LIST changes: +ALBUTEROL SULFATE 2.5MG/0.5ML INH NEB SOLN INH PRN; +EPINEPHrine INJ 1 MG/ML 1ML AMP IM PRN; +NS 1,000 ML IV SCH; +diphenhydrAMINE 50MG/ML VIAL IV PRN; +methylPREDNISolone 125MG 2ML VIAL IV PRN
[2024-05-12 12:30] VITALS: BP 121/60; O2SAT 97
[2024-05-12] MEDS: IRON SUCROSE 300 MG in NS 250 ML OVER 90 MIN. IV ONE (12:44)
== END 2024-05-12 14:25 ==
LOC: M INFU 12:11
PROVIDERS: ATTEND Internal Medicine Hematology
DX: D50.9 Iron deficiency anemia, unspecified (principal); Z88.8 Allergy status to other drugs, medicaments and biological substances
CPT/HCPCS: 96365; 96366; J1756

== ENCOUNTER → 2024-05-17 | Outpatient (CLI) | payer OTHER ==
[~2024-05-17] MED LIST changes: -ALBUTEROL SULFATE 2.5MG/0.5ML INH NEB SOLN INH PRN; -EPINEPHrine INJ 1 MG/ML 1ML AMP IM PRN; -NS 1,000 ML IV SCH; -diphenhydrAMINE 50MG/ML VIAL IV PRN; -methylPREDNISolone 125MG 2ML VIAL IV PRN
== END ==
LOC: M RAD 12:24
PROVIDERS: ATTEND Surgery
DX: N18.32 Chronic kidney disease, stage 3b (principal); M25.18 Fistula, other specified site; M99.3 Osseous stenosis of neural canal

== ENCOUNTER → 2024-05-19 | Outpatient (CLI) | payer OTHER ==
[~2024-05-19] VITALS: Ht 154.9 cm; Wt 112.0 kg
[~2024-05-19] MED LIST changes: +ALBUTEROL SULFATE 2.5MG/0.5ML INH NEB SOLN INH PRN; +EPINEPHrine INJ 1 MG/ML 1ML AMP IM PRN; +NS 1,000 ML IV SCH; +diphenhydrAMINE 50MG/ML VIAL IV PRN; +methylPREDNISolone 125MG 2ML VIAL IV PRN
[2024-05-19 11:15] VITALS: BP 121/64; O2SAT 95
[2024-05-19] MEDS: IRON SUCROSE 300 MG in NS 250 ML OVER 90 MIN. IV ONE (12:33)
[2024-05-19 14:10] VITALS: BP 105/58; O2SAT 97
== END ==
LOC: M INFU 11:02
PROVIDERS: ATTEND Internal Medicine Hematology
DX: D50.9 Iron deficiency anemia, unspecified (principal); Z88.8 Allergy status to other drugs, medicaments and biological substances; Z91.89 Other specified personal risk factors, not elsewhere classified; Z91.030 Bee allergy status
CPT/HCPCS: 96365; J1756

== ENCOUNTER → 2024-05-23 | Outpatient (CLI) | payer OTHER ==
[~2024-05-23] MED LIST changes: -ALBUTEROL SULFATE 2.5MG/0.5ML INH NEB SOLN INH PRN; -EPINEPHrine INJ 1 MG/ML 1ML AMP IM PRN; -NS 1,000 ML IV SCH; -diphenhydrAMINE 50MG/ML VIAL IV PRN; -methylPREDNISolone 125MG 2ML VIAL IV PRN
== END ==
LOC: M PLALAB 07:41
PROVIDERS: ATTEND Nurse Practitioner Family
DX: E11.649 Type 2 diabetes mellitus with hypoglycemia without coma (principal)

== ENCOUNTER → 2024-06-04 | Outpatient (CLI) | payer OTHER ==
[2024-06-04 09:50] LABS: BASO # 0.1 10^3/uL (0.0-0.2); BASO % 0.8 % (0.0-1.0); EOS # 0.5 10^3/uL (0.0-0.5); EOS % 3.2 % (0.0-3.0); HEMATOCRIT 31.8 % (36.0-47.0); HEMOGLOBIN 10.5 g/dl (12.0-15.5); LYMPH # 4.1 10^3/uL (1.5-5.0); MEAN CORPUSCULAR HEMOGLOBIN 31.7 pg (27.0-33.0); MEAN CORPUSCULAR VOLUME 96.1 fl (80.0-96.0); MONO # 1.1 10^3/uL (0.0-0.8); MONO % 7.2 % (2.0-8.0); NEUTROPHILS # 8.8 10^3/uL (1.5-8.5); NEUTROPHILS % 60.4 % (36.0-66.0); PLATELET COUNT, AUTOMATED 415 10^3/uL (150-450); RED BLOOD COUNT 3.31 10^6/uL (4.00-5.40); WHITE BLOOD COUNT 14.5 10^3/uL (4.0-10.0)
[2024-06-04 10:31] LABS: FERRITIN 1200.2 NG/ML (7.3-270.7)
== END ==
LOC: M LAB 08:46
PROVIDERS: ATTEND Internal Medicine Hematology
DX: E61.1 Iron deficiency (principal)

== ENCOUNTER → 2024-06-06 | Outpatient (CLI) | payer OTHER | LOC: M RAD 10:17 | PROVIDERS: ATTEND Nurse Practitioner Family | DX: R31.29 Other microscopic hematuria (principal) ==

== ENCOUNTER → 2024-06-14 | Outpatient (CLI) | payer OTHER | LOC: M RAD 08:10 | PROVIDERS: ATTEND Internal Medicine Hematology | DX: D72.829 Elevated white blood cell count, unspecified (principal) ==

== ENCOUNTER → 2024-07-04 | Outpatient (CLI) | payer OTHER | LOC: M RAD 14:00 | PROVIDERS: ATTEND Internal Medicine Hematology | DX: N83.202 Unspecified ovarian cyst, left side (principal) ==

== ENCOUNTER → 2024-07-20 | Outpatient (REF) | payer OTHER ==
[~2024-07-20] MED LIST changes: -CYCL5TAB PO; +CYCL5TAB4 PO
[2024-07-20 18:49] LABS: PERCENT SATURATION 12.6 % (13.2-45.0)
== END ==
LOC: M LAB REF 17:34
PROVIDERS: ATTEND Internal Medicine Hematology
DX: E61.1 Iron deficiency (principal)

== ENCOUNTER → 2024-08-11 | Outpatient (REF) | payer OTHER | LOC: M SFHCWOUN 17:21 | PROVIDERS: ATTEND Surgery | DX: L73.2 Hidradenitis suppurativa (principal) ==

== ENCOUNTER → 2024-08-12 | Outpatient (REF) | payer OTHER ==
[2024-08-12 17:44] LABS: APPEARANCE, URINE HAZY (CLEAR); BACTERIA, URINE AUTO NEGATIVE (NEGATIVE); BILIRUBIN, URINE AUTO NEGATIVE (NEGATIVE); BLOOD, URINE BLOOD NEGATIVE (NEGATIVE); COLOR, URINE YELLOW (YELLOW); GLUCOSE, URINE (UA) AUTO NEGATIVE (NEGATIVE); KETONE, URINE AUTO NEGATIVE (NEGATIVE); LEUKOCYTE ESTERASE, URINE AUTO NEGATIVE (NEGATIVE); NITRITE, URINE AUTO NEGATIVE (NEGATIVE); PROTEIN, URINE AUTO 2+ mg/dL (NEGATIVE); RBC, URINE AUTO 0 /HPF (0-3); SPECIFIC GRAVITY URINE AUTO 1.013 (1.002-1.035); SQUAMOUS EPITHELIAL CELL UR AU 10 /HPF (0-6); UROBILINOGEN, URINE AUTO 0.2 mg/dL (0.0-2.0); WBC, URINE AUTO 0 /HPF (0-3)
== END ==
LOC: M LAB REF 16:58
PROVIDERS: ATTEND Nurse Practitioner Family
DX: N39.0 Urinary tract infection, site not specified (principal)

== ENCOUNTER 2024-08-17 14:50 | Outpatient (CLI) | payer OTHER ==
[~2024-08-17] VITALS: Ht 154.9 cm; Wt 102.3 kg
[~2024-08-17 14:50] MED LIST changes: +ALBUTEROL SULFATE 2.5MG/0.5ML INH NEB SOLN INH PRN; +EPINEPHrine INJ 1 MG/ML 1ML AMP IM PRN; +diphenhydrAMINE 50MG/ML VIAL IV PRN; +methylPREDNISolone 125MG 2ML VIAL IV PRN
[2024-08-17 15:00] VITALS: BP 125/62; O2SAT 98
[2024-08-17] MEDS: IRON SUCROSE 300 MG in NS 250 ML OVER 90 MIN. IV ONE (15:03)
[2024-08-17 16:50] VITALS: BP 139/68; O2SAT 95
== END 2024-08-17 16:50 ==
LOC: M INFU 14:50
PROVIDERS: ATTEND Internal Medicine Hematology
DX: D50.9 Iron deficiency anemia, unspecified (principal); Z91.89 Other specified personal risk factors, not elsewhere classified; Z91.030 Bee allergy status; Z88.8 Allergy status to other drugs, medicaments and biological substances
CPT/HCPCS: 96365; J1756

== ENCOUNTER 2024-09-01 14:25 | Outpatient (CLI) | payer OTHER ==
[~2024-09-01] VITALS: Ht 154.9 cm; Wt 102.2 kg
[2024-09-01 15:00] VITALS: BP 122/62; O2SAT 100
[2024-09-01] MEDS: IRON SUCROSE 300 MG in NS 250 ML IV ONE (15:23)
[2024-09-01 17:03] VITALS: BP 136/71; O2SAT 96
== END 2024-09-01 17:05 | disposition home or self-care (01) ==
LOC: M INFU 14:25
PROVIDERS: ATTEND Internal Medicine Hematology
DX: D50.9 Iron deficiency anemia, unspecified (principal); Z88.8 Allergy status to other drugs, medicaments and biological substances
CPT/HCPCS: 96365; 96366; J1756

== ENCOUNTER 2024-09-08 15:21 | Outpatient (CLI) | payer OTHER ==
[~2024-09-08] VITALS: Ht 154.9 cm; Wt 102.3 kg
[2024-09-08] MEDS: IRON SUCROSE 300 MG in NS 250 ML IV ONE (15:26)
[2024-09-08 17:00] VITALS: BP 161/79; O2SAT 96
== END 2024-09-08 17:00 ==
LOC: M INFU 15:21
PROVIDERS: ATTEND Internal Medicine Hematology
DX: D50.9 Iron deficiency anemia, unspecified (principal); Z91.030 Bee allergy status; Z88.8 Allergy status to other drugs, medicaments and biological substances; Z91.048 Other nonmedicinal substance allergy status
CPT/HCPCS: 96365; 96366; J1756

== ENCOUNTER → 2024-09-16 | Outpatient (REF) | payer OTHER ==
[~2024-09-16] MED LIST changes: -ALBUTEROL SULFATE 2.5MG/0.5ML INH NEB SOLN INH PRN; -EPINEPHrine INJ 1 MG/ML 1ML AMP IM PRN; -diphenhydrAMINE 50MG/ML VIAL IV PRN; -methylPREDNISolone 125MG 2ML VIAL IV PRN
== END ==
LOC: M LAB REF 17:17
PROVIDERS: ATTEND Nurse Practitioner Family
DX: N39.0 Urinary tract infection, site not specified (principal)

== ENCOUNTER → 2024-09-25 | Outpatient (CLI) | payer OTHER ==
[2024-09-25 12:05] LABS: BASO # 0.2 10^3/uL (0.0-0.2); BASO % 1.1 % (0.0-1.0); EOS # 0.6 10^3/uL (0.0-0.5); EOS % 3.9 % (0.0-3.0); HEMATOCRIT 30.5 % (36.0-47.0); HEMOGLOBIN 10.2 g/dl (12.0-15.5); LYMPH # 3.1 10^3/uL (1.5-5.0); LYMPH % 20.9 % (24.0-44.0); MEAN CORPUSCULAR HEMOGLOBIN 32.5 pg (27.0-33.0); MEAN CORPUSCULAR HGB CONC 33.4 g/dl (32.0-36.5); MEAN CORPUSCULAR VOLUME 97.1 fl (80.0-96.0); MONO # 0.9 10^3/uL (0.0-0.8); NEUTROPHILS # 10.1 10^3/uL (1.5-8.5); NEUTROPHILS % 67.6 % (36.0-66.0); PLATELET COUNT, AUTOMATED 334 10^3/uL (150-450); RED BLOOD COUNT 3.14 10^6/uL (4.00-5.40); WHITE BLOOD COUNT 14.9 10^3/uL (4.0-10.0)
[2024-09-25 12:38] LABS: FERRITIN 1099.2 NG/ML (7.3-270.7)
== END ==
LOC: M LAB 11:44
PROVIDERS: ATTEND Internal Medicine Hematology
DX: E61.1 Iron deficiency (principal)

== ENCOUNTER → 2024-10-04 | Outpatient (CLI) | payer OTHER ==
[2024-10-04 11:24] LABS: HEMATOCRIT 32.3 % (36.0-47.0); HEMOGLOBIN 10.8 g/dl (12.0-15.5); MEAN CORPUSCULAR HGB CONC 33.4 g/dl (32.0-36.5); MEAN CORPUSCULAR VOLUME 95.8 fl (80.0-96.0); PLATELET COUNT, AUTOMATED 398 10^3/uL (150-450); RED BLOOD COUNT 3.37 10^6/uL (4.00-5.40); WHITE BLOOD COUNT 20.5 10^3/uL (4.0-10.0)
[2024-10-04 11:44] LABS: ALBUMIN 3.2 G/DL (3.2-5.2); BILIRUBIN,TOTAL 0.5 MG/DL (0.3-1.2); CALCIUM LEVEL 9.3 MG/DL (8.5-10.1); CREATININE FOR GFR 2.97 MG/DL (0.55-1.30); GLOMERULAR FILTRATION RATE 17.7 (>51); POTASSIUM SERUM 4.2 MMOL/L (3.5-5.1); TOTAL PROTEIN 6.3 G/DL (5.7-8.2)
[2024-10-04 11:51] LABS: PROCALCITONIN 0.28 ng/ml
== END ==
LOC: M RAD 10:18
PROVIDERS: ATTEND Physician Assistant Medical
DX: J10.1 Influenza due to other identified influenza virus with other respiratory manifestations (principal); J20.9 Acute bronchitis, unspecified; Z95.818 Presence of other cardiac implants and grafts

== ENCOUNTER → 2024-11-02 | Outpatient (CLI) | payer MEDICAID ==
[2024-11-02 17:56] LABS: APPEARANCE, URINE CLEAR (CLEAR); BACTERIA, URINE AUTO NEGATIVE (NEGATIVE); BASO # 0.2 10^3/uL (0.0-0.2); BASO % 0.9 % (0.0-1.0); BILIRUBIN, URINE AUTO NEGATIVE (NEGATIVE); BLOOD, URINE BLOOD NEGATIVE (NEGATIVE); COLOR, URINE STRAW (YELLOW); EOS # 0.6 10^3/uL (0.0-0.5); GLUCOSE, URINE (UA) AUTO NEGATIVE (NEGATIVE); HEMATOCRIT 32.6 % (36.0-47.0); HEMOGLOBIN 10.7 g/dl (12.0-15.5); KETONE, URINE AUTO NEGATIVE (NEGATIVE); LEUKOCYTE ESTERASE, URINE AUTO NEGATIVE (NEGATIVE); LYMPH # 3.7 10^3/uL (1.5-5.0); LYMPH % 17.9 % (24.0-44.0); MEAN CORPUSCULAR HEMOGLOBIN 32.1 pg (27.0-33.0); MEAN CORPUSCULAR HGB CONC 32.8 g/dl (32.0-36.5); MEAN CORPUSCULAR VOLUME 97.9 fl (80.0-96.0); MONO # 1.5 10^3/uL (0.0-0.8); MONO % 7.2 % (2.0-8.0); NEUTROPHILS # 14.4 10^3/uL (1.5-8.5); NEUTROPHILS % 70.4 % (36.0-66.0); NITRITE, URINE AUTO NEGATIVE (NEGATIVE); PLATELET COUNT, AUTOMATED 366 10^3/uL (150-450); PROTEIN, URINE AUTO 2+ mg/dL (NEGATIVE); RBC, URINE AUTO 1 /HPF (0-3); RED BLOOD COUNT 3.33 10^6/uL (4.00-5.40); SPECIFIC GRAVITY URINE AUTO 1.006 (1.002-1.035); SQUAMOUS EPITHELIAL CELL UR AU 1 /HPF (0-6); UROBILINOGEN, URINE AUTO 0.2 mg/dL (0.0-2.0); WBC, URINE AUTO 1 /HPF (0-3); WHITE BLOOD COUNT 20.5 10^3/uL (4.0-10.0)
[2024-11-02 18:25] LABS: URIC ACID 11.9 MG/DL (3.1-7.8)
[2024-11-02 18:26] LABS: ALBUMIN 3.4 G/DL (3.2-5.2); CALCIUM LEVEL 9.4 MG/DL (8.5-10.1); CREATININE FOR GFR 3.43 MG/DL (0.55-1.30); MAGNESIUM LEVEL 2.3 MG/DL (1.8-2.4); PHOSPHORUS LEVEL 5.4 MG/DL (2.5-4.9); POTASSIUM SERUM 4.2 MMOL/L (3.5-5.1)
[2024-11-02 18:28] LABS: PTH INTACT 119.1 PG/ML (18.5-88.0)
== END ==
LOC: M PLALAB 14:48
PROVIDERS: ATTEND Nurse Practitioner Family
DX: N25.81 Secondary hyperparathyroidism of renal origin (principal); N18.4 Chronic kidney disease, stage 4 (severe); D63.1 Anemia in chronic kidney disease; E83.42 Hypomagnesemia; M1A.30X0 Chronic gout due to renal impairment, unspecified site, without tophus (tophi)

== ENCOUNTER → 2024-11-05 | Outpatient (CLI) | payer MEDICAID | LOC: M RAD 08:29 | PROVIDERS: ATTEND Psychiatry & Neurology Neurology | DX: G43.019 Migraine without aura, intractable, without status migrainosus (principal); M47.812 Spondylosis without myelopathy or radiculopathy, cervical region; R90.82 White matter disease, unspecified; Z86.73 Personal history of transient ischemic attack (TIA), and cerebral infarction without residual deficits ==

== ENCOUNTER → 2024-11-29 | Outpatient (REF) | payer OTHER | LOC: M LAB REF 17:30 | PROVIDERS: ATTEND Nurse Practitioner Family | DX: N18.4 Chronic kidney disease, stage 4 (severe) (principal) ==

== ENCOUNTER → 2024-12-16 | Outpatient (CLI) | payer OTHER ==
[2024-12-16 12:50] LABS: BASO # 0.2 10^3/uL (0.0-0.2); BASO % 0.9 % (0.0-1.0); EOS # 0.4 10^3/uL (0.0-0.5); EOS % 2.8 % (0.0-3.0); HEMATOCRIT 31.9 % (36.0-47.0); HEMOGLOBIN 10.5 g/dl (12.0-15.5); LYMPH # 2.7 10^3/uL (1.5-5.0); LYMPH % 17.2 % (24.0-44.0); MEAN CORPUSCULAR HEMOGLOBIN 32.1 pg (27.0-33.0); MEAN CORPUSCULAR HGB CONC 32.9 g/dl (32.0-36.5); MEAN CORPUSCULAR VOLUME 97.6 fl (80.0-96.0); MONO # 1.4 10^3/uL (0.0-0.8); MONO % 8.8 % (2.0-8.0); NEUTROPHILS # 11.1 10^3/uL (1.5-8.5); NEUTROPHILS % 69.9 % (36.0-66.0); PLATELET COUNT, AUTOMATED 341 10^3/uL (150-450); RED BLOOD COUNT 3.27 10^6/uL (4.00-5.40); WHITE BLOOD COUNT 15.8 10^3/uL (4.0-10.0)
[2024-12-16 12:52] LABS: ALBUMIN 3.4 G/DL (3.2-5.2); BILIRUBIN,TOTAL 0.2 MG/DL (0.3-1.2); CALCIUM LEVEL 10.1 MG/DL (8.5-10.1); CREATININE FOR GFR 3.88 MG/DL (0.55-1.30); GLOMERULAR FILTRATION RATE 13.4 (>51); PERCENT SATURATION 27.1 % (13.2-45.0); POTASSIUM SERUM 3.9 MMOL/L (3.5-5.1); TOTAL PROTEIN 6.2 G/DL (5.7-8.2)
[2024-12-16 12:55] LABS: INR 0.94; PARTIAL THROMBOPLASTIN TIME 32.1 SECONDS (24.8-34.2); PROTHROMBIN TIME 12.8 SECONDS (12.5-14.5)
[2024-12-16 12:55] LABS: FERRITIN 1109.4 NG/ML (7.3-270.7)
[2024-12-16 13:42] LABS: HEMOGLOBIN A1c 5.5 % (4.0-6.0)
[2024-12-20 14:17] LABS: HPV APTIMA Not Detected (Not Detected)
== END ==
LOC: M PLALAB 09:23
PROVIDERS: ATTEND Family Medicine
DX: Z01.810 Encounter for preprocedural cardiovascular examination (principal); Z12.4 Encounter for screening for malignant neoplasm of cervix

== ENCOUNTER → 2025-01-10 | Outpatient (REF) | payer OTHER ==
[2025-01-10 18:09] LABS: HEPATITIS B SURFACE ANTIBODY NEGATIVE (POSITIVE)
[2025-01-10 18:20] LABS: HEPATITIS B SURFACE ANTIGEN NEGATIVE (NEGATIVE)
[2025-01-10 18:40] LABS: HEPATITIS B CORE ANTIBODY IGM NEGATIVE (NEGATIVE)
[2025-01-10 18:41] LABS: HEPATITIS C VIRUS ABY INDEX 0.04 INDEX (<0.8)
== END ==
LOC: M LAB REF 17:03
PROVIDERS: ATTEND Nurse Practitioner Family
DX: N18.5 Chronic kidney disease, stage 5 (principal)

== ENCOUNTER 2025-02-16 10:30 | Day surgery (SDC) | payer OTHER ==
[~2025-02-16] VITALS: Ht 154.9 cm; Wt 103.4 kg
[~2025-02-16 10:30] MED LIST changes: +LISI40TA10 PO; -LISI40TA4 PO; +SEVE800T3 PO; +TORS100T PO; +TRUL0.5I SC; +levemir flexpen SC
[2025-02-16] MEDS ORDERED: ONDANSETRON 4MG 2ML VIAL As Ordered ONE (10:59)
[2025-02-16] MEDS ORDERED: propofoL 200 MG/20 ML VIAL As Ordered ONE (10:59)
[2025-02-16] MEDS ORDERED: dexAMETHasone 4 MG/ML 1 ML VIAL As Ordered ONE (10:59)
[2025-02-16] MEDS ORDERED: LIDOCAINE 2% 100 MG/5 ML SDV (FOR ANES.) As Ordered ONE (10:59)
[2025-02-16] MEDS ORDERED: LR 1,000 ML IV SCH (11:00)
[2025-02-16] MEDS ORDERED: fentaNYL 100 MCG/2 ML INJECTION As Ordered ONE (11:02)
[2025-02-16] MEDS ORDERED: MIDAZOLAM INJ 2 MG/2 ML VIAL As Ordered ONE (11:02)
[2025-02-16] MEDS ORDERED: GABA-1171 PO (11:03)
[2025-02-16] MEDS ORDERED: D5W/0.45% SODIUM CHLORIDE 1,000 ML IV SCH (11:55)
[2025-02-16] MEDS: CIPRODEX OTIC SUSP 7.5 ML As Ordered ONE (12:40)
[2025-02-16] MEDS ORDERED: oxyCODONE 5MG TAB PO PRN (12:50)
[2025-02-16] MEDS ORDERED: ONDANSETRON 4MG 2ML VIAL IV PRN (12:50)
[2025-02-16] MEDS ORDERED: fentaNYL 100 MCG/2 ML INJECTION IV PRN (12:50)
[2025-02-16] MEDS: ACETAMINOPHEN 325 MG TAB PO ONE (13:23)
[2025-02-16 14:08] VITALS: BP 121/57; TEMP 97.5; O2SAT 95
== END 2025-02-16 14:16 | disposition home or self-care (01) ==
LOC: M SDC 10:30
PROVIDERS: ATTEND Otolaryngology
DX: H65.23 Chronic serous otitis media, bilateral (principal); H69.83 Other specified disorders of Eustachian tube, bilateral; E11.9 Type 2 diabetes mellitus without complications; I10 Essential (primary) hypertension; E78.00 Pure hypercholesterolemia, unspecified; I69.398 Other sequelae of cerebral infarction; H54.8 Legal blindness, as defined in USA; R56.9 Unspecified convulsions; Z79.899 Other long term (current) drug therapy; Z79.4 Long term (current) use of insulin; Z79.82 Long term (current) use of aspirin; G43.909 Migraine, unspecified, not intractable, without status migrainosus; Z91.030 Bee allergy status; Z91.048 Other nonmedicinal substance allergy status; Z88.5 Allergy status to narcotic agent
CPT/HCPCS: 69436; J1100; J2250; J2405; J3010

== ENCOUNTER → 2025-04-04 | Outpatient (REF) | payer OTHER ==
[~2025-04-04] MED LIST changes: +GABA-1171 PO; -KETO0.5S4 OP; +KETO5DRO32 OP
[2025-04-04 12:58] LABS: APPEARANCE, URINE HAZY (CLEAR); BACTERIA, URINE AUTO 2+ (NEGATIVE); BILIRUBIN, URINE AUTO NEGATIVE (NEGATIVE); BLOOD, URINE BLOOD NEGATIVE (NEGATIVE); GLUCOSE, URINE (UA) AUTO NEGATIVE (NEGATIVE); KETONE, URINE AUTO NEGATIVE (NEGATIVE); LEUKOCYTE ESTERASE, URINE AUTO NEGATIVE (NEGATIVE); MUCUS, URINE SMALL (NEGATIVE); NITRITE, URINE AUTO NEGATIVE (NEGATIVE); PROTEIN, URINE AUTO 2+ mg/dL (NEGATIVE); RBC, URINE AUTO 1 /HPF (0-3); SPECIFIC GRAVITY URINE AUTO 1.008 (1.002-1.035); SQUAMOUS EPITHELIAL CELL UR AU 9 /HPF (0-6); UROBILINOGEN, URINE AUTO 0.2 mg/dL (0.0-2.0); WBC, URINE AUTO 1 /HPF (0-3)
== END ==
LOC: M LAB REF 12:03
PROVIDERS: ATTEND Nurse Practitioner Family
DX: N39.0 Urinary tract infection, site not specified (principal)

== ENCOUNTER → 2025-05-16 | Outpatient (REF) | payer OTHER ==
[~2025-05-16] MED LIST changes: -EZET10TA21 PO; +EZET10TA57 PO
== END ==
LOC: M CARPUL 16:05 → EDSTATUS 16:30
PROVIDERS: ATTEND Nurse Practitioner Family
DX: Z01.89 Encounter for other specified special examinations (principal)

== ENCOUNTER → 2025-06-19 | Outpatient (CLI) | payer OTHER | LOC: M RAD 12:50 | PROVIDERS: ATTEND Physician Assistant | DX: M25.511 Pain in right shoulder (principal); S46.011D Strain of muscle(s) and tendon(s) of the rotator cuff of right shoulder, subsequent encounter ==

== ENCOUNTER → 2025-08-28 | Outpatient (CLI) | payer OTHER ==
[2025-08-28 14:16] LABS: VALPROIC ACID (DEPAKOTE) 44.8 UG/ML (50.0-100.0)
[2025-08-28 14:19] LABS: ALT/SGPT 27.0 U/L (7.0-40); AST/SGOT 22.0 U/L (<34); CALCIUM LEVEL 9.2 MG/DL (8.5-10.1); CARBON DIOXIDE LEVEL 34.0 MMOL/L (20-31); CHLORIDE LEVEL 95.0 MMOL/L (98-107); CREATININE FOR GFR 2.32 MG/DL (0.55-1.30); GLOMERULAR FILTRATION RATE 24.9 (>51); POTASSIUM SERUM 3.6 MMOL/L (3.5-5.1); SODIUM LEVEL 139.0 MMOL/L (136-145)
== END ==
LOC: M PLALAB 09:55
PROVIDERS: ATTEND Psychiatry & Neurology Neurology
DX: R56.9 Unspecified convulsions (principal)